=== PATIENT | female | born 1970 | race Caucasian/White ===

== ENCOUNTER 2016-12-26 17:22 | Emergency (ER) | payer BC, OTHER ==
[~2016-12-26] VITALS: Ht 165.1 cm; Wt 69.7 kg
[~2016-12-26 17:22] MED LIST: ALBU1AER9 INH; ATV/1 PO; CYAN3INJ IM; CYCL5TAB PO; ELET40TA PO; ERGO500037 PO; FEXO1TAB46 PO; FURO-85 PO; PANT40TA PO; POTA10TA32 PO; PROM25TA16 PO; TEMA30CA4 PO; TRAM-453 PO; ZOLE5INJ IV; ZOLP12.5 PO; [UNRECOGNIZED DRUG - CODE] PO; [UNRECOGNIZED DRUG - SUPPLY] IVF
[2016-12-26 17:25] VITALS: TEMP 36.9; O2SAT 98; Ht 165.1 cm; Wt 69.7 kg
[2016-12-26] MEDS ORDERED: ALBU18002 INH (17:43)
[2016-12-26] MEDS ORDERED: CYNI1000 IM (17:43)
[2016-12-26] MEDS ORDERED: SODIUM CHLORIDE 0.9% 1000ML 1,000 ML IV STA (18:19)
--- NOTE | 2016-12-26 19:34 | DIAGNOSTIC IMAGING REPORT ---
HEAD WITHOUT CONTRAST (CT) CLINICAL HISTORY: 46 years-old Female presenting with Evaluate Fever/Sepsis. TECHNIQUE: Multidetector CT imaging of the head was performed without the use of intravenous contrast. IV contrast: None. A dose lowering technique was used consistent with the principles of ALARA (as low as reasonably achievable). COMPARISON: 04/25/2013. CT DOSE (mGy.cm): The estimated cumulative dose is 601.98 mGy.cm. 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 Ventricles and sulci normal in size. Brain parenchyma normal in appearance with preserved ocampo-white differentiation. No mass effect or midline shift. No hemorrhage or acute territorial infarct. No extra-axial fluid collection. Minimal mucosal thickening in the right maxillary sinus. Calvarium intact. IMPRESSION: 1. No acute intracranial pathology. Electronically signed by: Abdiaziz Calhoun M.D. 12/26/2016 7:33 PM Dictated Date/Time: 12/26/2016 7:31 PM
--- NOTE | 2016-12-26 19:36 | DIAGNOSTIC IMAGING REPORT ---
CHEST ONE VIEW PORTABLE CLINICAL HISTORY: 46 years-old Female presenting with Evaluate Fever/Sepsis. TECHNIQUE: Portable upright AP view of the chest was obtained. COMPARISON: 01/29/2012. FINDINGS: Right internal jugular Mediport remains in place terminating in the SVC. Surgical clips project over the lower mediastinum. Cardiomediastinal silhouette normal. Lungs and pleural spaces clear. Osseous structures normal. Upper abdomen normal. IMPRESSION: 1. No acute cardiopulmonary disease. Electronically signed by: Abdiaziz Calhoun M.D. 12/26/2016 7:35 PM Dictated Date/Time: 12/26/2016 7:33 PM
[2016-12-26] MEDS ORDERED: ONDANSETRON INJ 2 MG/ML 2 ML VIAL IV STA (20:28)
[2016-12-26] MEDS ORDERED: ONDANSETRON INJ 2 MG/ML 2 ML VIAL ONE (20:29)
[2016-12-26 20:30] LABS: BASO % 0.3 %; BASO ABS # 0.04 K/uL (0-0.2); COMPLETE YES; EOS % 0.1 %; HEMATOCRIT 34.9 % (37-47); IG% 0.4 %; LYMPH ABS # 1.18 K/uL (1.2-3.4); MEAN CELL VOLUME 90.4 fL (80-100); MEAN CORPUSCULAR HEMOGLOBIN 30.6 pg (25-34); MEAN CORPUSCULAR HGB CONC 33.8 g/dl (32-36); MEAN PLATELET VOLUME 10.4 fL (7.4-10.4); MONO % 6.5 %; NEUT % 82.7 %; PLATELET COUNT 329 K/uL (130-400); RED BLOOD COUNT 3.86 M/uL (4.2-5.4); WHITE BLOOD COUNT 11.76 K/uL (4.8-10.8)
[2016-12-26 20:37] LABS: PARTIAL THROMBOPLASTIN RATIO 1.3; PROTHROMBIN TIME (PATIENT) 10.6 SECONDS (9.0-12.0)
[2016-12-26 20:46] LABS: PREG INTERNAL NEGATIVE QC NEG CLEAR BACKGROUND; PREG INTERNAL POSITIVE QC POS CONTROL LINE
[2016-12-26 20:47] LABS: BLOOD UREA NITROGEN 9 mg/dl (7-18); BUN/CREATININE RATIO 11.8 (10-20); CALCIUM 8.8 mg/dl (8.5-10.1); CARBON DIOXIDE 26 mmol/L (21-32); CHLORIDE 102 mmol/L (98-107); CREATININE 0.76 mg/dl (0.60-1.20); GLUCOSE 90 mg/dl (70-99); POTASSIUM 3.4 mmol/L (3.5-5.1); SODIUM 137 mmol/L (136-145)
[2016-12-26 20:58] LABS: ALKALINE PHOSPHATASE 87 U/L (45-117); ALT/SGPT 19 U/L (12-78); AST/SGOT 19 U/L (15-37); CKMB/CK RATIO 1.7 (0-3.0); THYROID STIMULATING HORMONE 0.952 uIu/ml (0.300-4.500)
[2016-12-26 21:04] LABS: URINE APPEARANCE TURBID (CLEAR); URINE BILIRUBIN NEG (NEG); URINE COLOR DK YELLOW; URINE EPITHELIAL CELL AUTO >30 /lpf (0-5); URINE NITRITE POS (NEG); URINE PH 6.5 (4.5-7.5); URINE SPECIFIC GRAVITY 1.022 (1.000-1.030); UROBILINOGEN POS (NEG); ZZUR CULT IF INDIC CLEAN CATCH YES
[2016-12-26 21:09] LABS: MANUAL MICROSCOPIC REQUIRED? NO; REVIEW REQ? YES
[2016-12-26 21:33] LABS: BENZODIAZEPINE, URINE NEG (NEG); COCAINE,URINE NEG (NEG); PHENCYCLIDINE, URINE NEG (NEG)
[2016-12-26] MEDS ORDERED: CEFTRIAXONE SOD INJ 1 GM ADDVIAL IV STA (22:12)
[2016-12-26] MEDS ORDERED: LEVOFLOXACIN 250 MG TAB PO STA (22:12)
[2016-12-26] MEDS ORDERED: LORAZEPAM 1 MG TAB SL STA (22:31)
[2016-12-26] MEDS ORDERED: LEVO-366 PO (22:41)
[2016-12-26] MEDS ORDERED: ONDA4TAB10 SL (22:41)
--- NOTE | 2016-12-26 22:41 | EMERGENCY ROOM VISIT NOTE ---
History Report prepared by [place]: Cony Kenney Under the Supervision of: Dr. Dirk Enriquez D.O. First contact with patient: 18:19 Chief Complaint: SEIZURE Stated Complaint: SEIZURE Nursing Triage Summary: Patient arrived to [facility] via ALS from the [facility]. Per EMS "The patient was visiting with some friends at their camper. At some point, she started 'zoning out' and one of her friends noticed a right sided facial droop. They sat her down and started talking to her. She started having a grand mal seizure that lasted about 1 minute. She did not have any incontinence. She did not bite her tongue. She was postictal for about 15 minutes after the seizure." Patient has no history of seizure. PMH: Anxiety, Hypoparathyroidism, blindness, Von Willebrand disease. Patient has a history of metaport implantations; two of which became infected and were removed. Patient reports that since the seizure she is unable to feel four of her toes on the left foot. 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 The patient presents to the ED by EMS from [facility]. The patient was sitting and eating with family when she started slurring her speech. She started grabbing at her right leg with her arm. She would not respond to her family. They took her to the first aid tent where they noticed right facial droop and right upper extremity weakness. They also noted that the patient seemed to be having a grand mal seizure. The patient has no memory of this episode. According to family, the patient appears normal now. She denies any history of seizure. She had a similar episode several years ago where she suddenly became unresponsive and was grabbing at her leg. The episode today seemed to go further and included more symptoms than her previous episode. She notes that she has felt hot all day. She admits to being noncompliant with her medications at times. She notes that she has a blood disorder that causes her to bruise easily. 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 Review of Systems See HPI for pertinent positives & negatives. A total of 10 systems reviewed and were otherwise negative. Past Medical & Surgical Medical Problems: (1) Anxiety (2) Blindness (3) Depression (4) Gastroparesis (5) Hypoparathyroidism (6) mediport (7) Peptic ulcer disease (8) Von Willebrand disease Family History No pertinent family history stated. Social History Smoking Status: Never Smoker Alcohol Use: none Drug Use: none Marital Status: single Housing Status: lives alone Occupation Status: employed Current/Historical Medications Scheduled Calcium Carbonate-Vitamin D (Liquid Calcium/Vitamin D), 2 CAPSULES PO BID Cyanocobalamin (Cyanocobalamin), 1 ML IM MONTHLY Fexofenadine Hcl (Maame), 180 MG PO BID Levofloxacin (Levaquin), 500 MG PO DAILY Lorazepam (Ativan), 1 MG PO ACHS Ondasetron Odt (Zofran Odt), 4 MG SL Q6H Pantoprazole Sodium (Protonix), 40 MG PO BID Promethazine HCl (Promethazine HCl), 25 MG PO AC Zoledronic Acid (Reclast), 5 MG IV YEARLY [Mediport Flush], IVF MONTHLY Scheduled PRN Albuterol Sulfate (Proair Respiclick), 2 PUFFS INH QID PRN for Shortness of Breath Cyclobenzaprine Hcl (Flexeril), 5 MG PO TID PRN for Muscle spasm Eletriptan Hydrobromide (Relpax), 40 MG PO UD PRN for Headache Furosemide (Lasix), 20 MG PO QAM PRN for Swelling Potassium Chloride Microencaps (Potassium Chloride Er), 10 MEQ PO DAILY PRN for With lasix Temazepam (Restoril), 30 MG PO HS PRN for Sleep Tramadol Hcl (Ultram), 25 MG PO Q4H PRN for Pain Zolpidem Tartrate (Ambien Cr), 12.5 MG PO UD PRN for Sleep Allergies Coded Allergies: Latex1 -Allergic Contact Dermititis (Verified Allergy, Severe, RASH, ) APPEARS LIKE A CHEMICAL BURN PER PATIENT Tobramycin (Verified Allergy, Severe, BLINDNESS, 03/06/15) CAUSED DETERIORATION IN NERVES AND MUSCLES BEHIND PATIENT'S EYES Penicillins (Verified Allergy, Intermediate, RASH, 03/06/15) PT CAN TOLERATE ROCEPHINE AND CEPHLASPORINS PER DR CIFUENTES Quinolones (Verified Allergy, Intermediate, RASH, 03/06/15) APPEARS LIKE A CHEMICAL BURN PER PATIENT Sulfa Drugs (Verified Allergy, Intermediate, HIVES, 03/06/15) W/ NAUSEA, VOMITING Aminoglycosides (Verified Allergy, Unknown, UNKNOWN, 03/06/15) Ferric Oxide (Verified Adverse Reaction, Intermediate, HIVES, 03/06/15) ABLE TO TOLERATE W/ PRETREATS PER PATIENT Iron Dextran (Verified Adverse Reaction, Intermediate, SHORT OF BREATH W/ HEART RACING, 03/06/15) PT CAN TOLERATE IF PRETREATED Lactose (Verified Adverse Reaction, Intermediate, NAUSEA, GI UPSET, ) Uncoded Allergies: CONTRASTMEDIA (Allergy, Mild, FACIAL SWELLING WITH IV CONTRAST, 06/09/09) Physical Exam Vital Signs Date Time Temp Pulse Resp B/P (MAP) Pulse Ox O2 Delivery O2 Flow Rate FiO2 12/26/16 23:00 120 16 158/96 99 12/26/16 22:26 121 16 145/87 99 Room Air 12/26/16 21:45 126 16 145/87 99 Room Air 12/26/16 21:29 129 12/26/16 19:54 134 16 139/87 100 Room Air 12/26/16 17:39 136 12/26/16 17:25 36.9 138 20 138/92 98 Room Air 12/26/16 17:25 98 Room Air Physical Exam CONSTITUTIONAL/VITAL SIGNS: Reviewed / noted above. GENERAL: Non-toxic in appearance. INTEGUMENTARY: Warm, dry, and [place]. HEAD: Normocephalic. EYES: without scleral icterus or trauma. ENT/OROPHARYNX: clear and moist. LYMPHADENOPATHY/NECK: Is supple without lymphadenopathy or meningismus. RESPIRATORY: Lungs clear and equal. CARDIOVASCULAR: Tachycardic rate and rhythm. GI/ABDOMEN: Soft and nontender. No organomegaly or pulsatile mass. No rebound or guarding. Normal bowel sounds. EXTREMITIES: Multiple ecchymotic areas on both extremities, patient reports bruises easily due to blood disorder. BACK: No CVA tenderness. NEUROLOGICAL: Intact without focal deficits. PSYCHIATRIC: normal affect. MUSCULOSKELETAL: Normally developed with good muscle tone. Medical Decision & Procedures ER Provider Diagnostic Interpretation: X ray results and stated below per my interpretation and radiology interpretation. Radiology results as stated below per my review and radiologist interpretation: CHEST ONE VIEW PORTABLE CLINICAL HISTORY: 46 years-old Female presenting with Evaluate Fever/Sepsis. TECHNIQUE: Portable upright AP view of the chest was obtained. COMPARISON: 01/29/2012. FINDINGS: Right internal jugular Mediport remains in place terminating in the SVC. Surgical clips project over the lower mediastinum. Cardiomediastinal silhouette normal. Lungs and pleural spaces clear. Osseous structures normal. Upper abdomen normal. IMPRESSION: 1. No acute cardiopulmonary disease. Electronically signed by: Abdiaziz Calhoun M.D. 12/26/2016 7:35 PM Dictated Date/Time: 12/26/2016 7:33 PM HEAD WITHOUT CONTRAST (CT) CLINICAL HISTORY: 46 years-old Female presenting with Evaluate Fever/Sepsis. TECHNIQUE: Multidetector CT imaging of the head was performed without the use of intravenous contrast. IV contrast: None. A dose lowering technique was used consistent with the principles of ALARA (as low as reasonably achievable). COMPARISON: 04/25/2013. CT DOSE (mGy.cm): The estimated cumulative dose is 601.98 mGy.cm. 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 Ventricles and sulci normal in size. Brain parenchyma normal in appearance with preserved ocampo-white differentiation. No mass effect or midline shift. No hemorrhage or acute territorial infarct. No extra-axial fluid collection. Minimal mucosal thickening in the right maxillary sinus. Calvarium intact. IMPRESSION: 1. No acute intracranial pathology. Electronically signed by: Abdiaziz Calhoun M.D. 12/26/2016 7:33 PM Dictated Date/Time: 12/26/2016 7:31 PM Laboratory Results 12/26/16 20:00 Red Blood Count 3.86, Mean Corpuscular Volume 90.4, Mean Corpuscular Hemoglobin 30.6, Mean Corpuscular Hemoglobin Concent 33.8, Mean Platelet Volume 10.4, Neutrophils (%) (Auto) 82.7, Lymphocytes (%) (Auto) 10.0, Monocytes (%) (Auto) 6.5, Eosinophils (%) (Auto) 0.1, Basophils (%) (Auto) 0.3, Neutrophils # (Auto) 9.72, Lymphocytes # (Auto) 1.18, Monocytes # (Auto) 0.76, Eosinophils # (Auto) 0.01, Basophils # (Auto) 0.04 12/26/16 20:00 Test 12/26/16 20:00 12/26/16 20:36 12/26/16 20:45 White Blood Count 11.76 K/uL (4.8-10.8) Red Blood Count 3.86 M/uL (4.2-5.4) Hemoglobin 11.8 g/dL (12.0-16.0) Hematocrit 34.9 % (37-47) Mean Corpuscular Volume 90.4 fL (80-100) Mean Corpuscular Hemoglobin 30.6 pg (25-34) Mean Corpuscular Hemoglobin Concent 33.8 g/dl (32-36) Platelet Count 329 K/uL (130-400) Mean Platelet Volume 10.4 fL (7.4-10.4) Neutrophils (%) (Auto) 82.7 % Lymphocytes (%) (Auto) 10.0 % Monocytes (%) (Auto) 6.5 % Eosinophils (%) (Auto) 0.1 % Basophils (%) (Auto) 0.3 % Neutrophils # (Auto) 9.72 K/uL (1.4-6.5) Lymphocytes # (Auto) 1.18 K/uL (1.2-3.4) Monocytes # (Auto) 0.76 K/uL (0.11-0.59) Eosinophils # (Auto) 0.01 K/uL (0-0.5) Basophils # (Auto) 0.04 K/uL (0-0.2) RDW Standard Deviation 56.7 fL (36.4-46.3) RDW Coefficient of Variation 17.3 % (11.5-14.5) Immature Granulocyte % (Auto) 0.4 % Immature Granulocyte # (Auto) 0.05 K/uL (0.00-0.02) Prothrombin Time 10.6 SECONDS (9.0-12.0) Prothromb Time International Ratio 1.0 (0.9-1.1) Activated Partial Thromboplast Time 32.9 SECONDS (21.0-31.0) Partial Thromboplastin Ratio 1.3 D-Dimer 400 ug/L FEU (0-500) Anion Gap 9.0 mmol/L (3-11) Est Creatinine Clear Calc Drug Dose 89.7 ml/min Estimated GFR () 108.3 Estimated GFR (Non- 93.4 BUN/Creatinine Ratio 11.8 (10-20) Calcium Level 8.8 mg/dl (8.5-10.1) Total Bilirubin 0.5 mg/dl (0.2-1) Direct Bilirubin 0.2 mg/dl (0-0.2) Aspartate Amino Transf (AST/SGOT) 19 U/L (15-37) Alanine Aminotransferase (ALT/SGPT) 19 U/L (12-78) Alkaline Phosphatase 87 U/L (45-117) Total Creatine Kinase 93 U/L (26-192) Creatine Kinase MB 1.6 ng/ml (0.5-3.6) Creatine Kinase MB Ratio 1.7 (0-3.0) Troponin I < 0.015 ng/ml (0-0.045) Total Protein 6.8 gm/dl (6.4-8.2) Albumin 3.7 gm/dl (3.4-5.0) Lipase 63 U/L (73-393) Thyroid Stimulating Hormone (TSH) 0.952 uIu/ml (0.300-4.500) Human Chorionic Gonadotropin, Qual NEG (NEG) Ethyl Alcohol mg/dL < 3.0 mg/dl (0-3) Urine Color DK YELLOW Urine Appearance TURBID (CLEAR) Urine pH 6.5 (4.5-7.5) Urine Specific [place] 1.022 (1.000-1.030) Urine Protein 1+ (NEG) Urine Glucose (UA) NEG (NEG) Urine Ketones 1+ (NEG) Urine Occult Blood NEG (NEG) Urine Nitrite POS (NEG) Urine Bilirubin NEG (NEG) Urine Urobilinogen POS (NEG) Urine Leukocyte Esterase SMALL (NEG) Urine WBC (Auto) >30 /hpf (0-5) Urine RBC (Auto) 5-10 /hpf (0-4) Urine Hyaline Casts (Auto) 5-10 /lpf (0-5) Urine Epithelial Cells (Auto) >30 /lpf (0-5) Urine Bacteria (Auto) 4+ (NEG) Urine Pathogenic Casts /lpf (0) Urine Opiates Screen NEG (NEG) Urine Methadone, Qualitative NEG (NEG) Urine Barbiturates NEG (NEG) Urine Phencyclidine (PCP) Level NEG (NEG) Ur Amphetamine/Methamphetamine NEG (NEG) MDMA (Ecstasy) Screen NEG (NEG) Urine Benzodiazepines Screen NEG (NEG) Urine Cocaine Metabolite NEG (NEG) Urine Marijuana (THC) NEG (NEG) Laboratory results as stated above per my review. Medications Administered Medications (Trade) Dose Ordered Sig/Joanna Route Start Time Stop Time Status Last Admin Dose Admin Sodium Chloride 1,000 ml @ 999 mls/hr Q1H1M STAT IV 12/26/16 18:19 12/26/16 19:19 DC 12/26/16 20:33 999 MLS/HR Ondansetron HCl (Zofran Inj) 4 mg NOW STAT IV 12/26/16 20:28 12/26/16 20:29 DC 12/26/16 20:33 4 MG Ceftriaxone Sodium (Rocephin Inj) 1 gm NOW STAT IV 12/26/16 22:12 12/26/16 22:14 DC 12/26/16 22:26 1 GM Levofloxacin (Levaquin Tab) 500 mg NOW STAT PO 12/26/16 22:12 12/26/16 22:14 DC 12/26/16 22:53 500 MG Lorazepam (Ativan Tab) 1 mg NOW STAT SL 12/26/16 22:31 12/26/16 22:32 DC 12/26/16 22:53 1 MG Heparin Sodium (Porcine) (Heparin 100 Unit/ml 5ml Flush) 5 ml STK-MED ONCE .ROUTE 12/26/16 23:00 12/26/16 23:01 DC 12/26/16 23:00 5 ML ECG Indication: tachycardia Rate (beats per minute): 128 Rhythm: sinus tachycardia Findings: no ectopy, other (no acute injury) ED Course 1818: NSS 1000 ml @ 999 mls/hr IV. 1822: Previous medical records were reviewed. The patient was evaluated in room C12A. A complete history and physical examination was performed. 2027: Zofran Inj 4 mg IV. 0: I reevaluated the patient. She is still tachycardic. I offered her observation overnight, but she declined. I discussed the results and treatment plan with her. She verbalized understanding and agreement. She will be discharged home after antibiotics. 2211: Levofloxacin 500 mg PO, Rocephin Inj 1 gm IV. 2230: Lorazepam 1 mg SL. Medical Decision Differential diagnosis: Etiologies such as infection, hypoglycemia, electrolyte abnormalities, cardiac sources, intracerebral event, trauma, toxicologic, neurologic, as well as others were entertained. This is a 46-year-old female who presents to the ED with a chief complaint of seizure-like activity. The patient was with family and suddenly seemed to slur her words and was shaking and possibly has some seizure-like activity for about a minute. The patient was then brought here by EMS. The patient denies any specific complaints at this time. She is tachycardic on exam. She did not have incontinence or bite her tongue. She denies any trauma or symptoms at this time. The patient had a similar episode to this in 2012 and at that time her symptoms were unexplained. At the time she was also somewhat tachycardic but not as tachycardic as today. Her 12-lead EKG today reveals a sinus tach at a rate of 128. CT scan of the brain and chest x-ray were negative for acute disease. Blood work was unremarkable. Tox screen was negative. D-dimer was negative. Troponin was negative. The patient's urine suggests an infection. She was treated with IV Rocephin and by mouth Levaquin. She reports that she has had Levaquin in the past. The patient seems to be persistently tachycardic. I did discuss this with her. This is somewhat concerning although the patient is stating that she is asymptomatic. She does report some anxiety and was given some by mouth Ativan for this. He was also given some IV fluids. She was given Zofran for some nausea. I did discuss her persistent tachycardia with her and recommended observation. She declined this and states that she wants to go home. She feels that her tachycardia is related to anxiety. The patient is discharged per her wishes and will be discharged on Zofran and Levaquin. Medication Reconcilliation Current Medication List: was personally reviewed by me Blood Pressure Screening Patient's blood pressure: Normal blood pressure Blood pressure disposition: Did not require urgent referral Impression Primary Impression: UTI (urinary tract infection) Additional Impressions: Anxiety Seizure-like activity Scribe Attestation The scribe's documentation has been prepared under my direction and personally reviewed by me in its entirety. I confirm that the note above accurately reflects all work, treatment, procedures, and medical decision making performed by me. Departure Information Dispostion Home / Self-Care Prescriptions Ondasetron Odt (ZOFRAN ODT) 4 Mg Tab 4 MG SL Q6H for Nausea, #6 TAB Prov: Dirk Enriquez D.O. 12/26/16 Levofloxacin (Levaquin) 500 Mg Tab 500 MG PO DAILY for 7 Days, #7 TAB Prov: Dirk Enriquez D.O. 12/26/16 Referrals Landry Gonzales M.D. (PCP) Patient Instructions [facility] Additional Instructions Levaquin as prescribed for urinary tract infection. Zofran: Allow one tablet to dissolve under the tongue every 6 hours as needed for nausea or vomiting. Follow-up with your doctor for further care and evaluation in 1-2 days. Return to the emergency department for worsening or new symptoms or any concerns. You have been examined and treated today on an emergency basis only. This is not a substitute for, or an effort to provide, complete comprehensive medical care. It is impossible to recognize and treat all injuries or illnesses in a single emergency department visit. It is therefore important that you follow up closely with your doctor. Call as soon as possible for an appointment. Problem Qualifiers
[2016-12-26 23:00] VITALS: BP 158/96; PULSE 120; O2SAT 99
== END 2016-12-26 23:00 | disposition home or self-care (01) ==
LOC: EDBD 17:22 → C.EDC 17:23
DX: N39.0 Urinary tract infection, site not specified (principal); F41.9 Anxiety disorder, unspecified; R56.9 Unspecified convulsions; E20.9 Hypoparathyroidism, unspecified; H54.0 Blindness, both eyes; D68.0 Von Willebrand disease; F32.9 Major depressive disorder, single episode, unspecified; K31.84 Gastroparesis; K27.9 Peptic ulcer, site unspecified, unspecified as acute or chronic, without hemorrhage or perforation; Z79.899 Other long term (current) drug therapy

== ENCOUNTER 2018-07-07 14:02 | Inpatient (IN) ==
[2018-07-07] MEDS ORDERED: PROMETHAZINE HCL 6.25 MG in SODIUM CHLORIDE 0.9% 50 ML IV STA (14:41)
[2018-07-07] MEDS ORDERED: ACETAMINOPHEN 1,000 MG/100 ML VIAL IV STA (14:41)
[2018-07-07] MEDS ORDERED: KETOROLAC TROMETHAMINE 15 MG/ML VIAL IV STA (14:41)
[2018-07-07] MEDS ORDERED: SODIUM CHLORIDE 0.9% 1000ML 2,000 ML IV ONE (14:41)
[2018-07-07] MEDS ORDERED: ONDANSETRON INJ 2 MG/ML 2 ML VIAL IV STA (14:41)
[2018-07-07] MEDS ORDERED: CEFEPIME 2,000 MG in SYRINGE 7.5 ML IV STA (14:41)
[2018-07-07 14:56] LABS: Hemoglobin 12.6 g/dL (12.0-16.0); Immature Granulocytes # (auto) 0.04 K/uL (0.00-0.02); Immature Granulocytes % (auto) 0.3 %; Lymphocytes # (auto) 0.92 K/uL (1.2-3.4); Lymphocytes % (auto) 6.8 %; Mean Corpuscular Hgb Conc 33.2 g/dL (32-36); Mean Corpuscular Volume 95.2 fL (80-100); Mean Platelet Volume 11.3 fL (7.4-10.4); Monocytes # (auto) 0.46 K/uL (0.11-0.59); Monocytes % (auto) 3.4 %; Neutrophils # (auto) 12.12 K/uL (1.4-6.5); Neutrophils % (auto) 89.5 %; Platelet Count 273 K/uL (130-400); RDW Coefficient of Variation 19.8 % (11.5-14.5); RDW Standard Deviation 68.2 fL (36.4-46.3); Red Blood Count 3.99 M/uL (4.2-5.4); White Blood Count 13.54 K/uL (4.8-10.8)
--- NOTE | 2018-07-07 15:00 | XRay Report ---
XR chest 1V portable HISTORY: Sepsis COMPARISON: Chest 01/26/2018. FINDINGS: No pleural effusions. No pneumothorax. The lungs are clear. The heart is normal in size. Ol d, healed left-sided rib fractures. Right jugular Port-A-Cath terminates at the SVC. Prior cholecyste ctomy. IMPRESSION: No acute process. Electronically signed by: Hadley Soni M.D. 07/07/2018 2:59 PM
[2018-07-07 15:04] LABS: Alanine Aminotransferase 21 U/L (12-78); Albumin Level 3.9 gm/dl (3.4-5.0); Aspartate Aminotransferase 38 U/L (15-37); BUN Creatinine Ratio 10.1 (10-20); Blood Urea Nitrogen 10 mg/dl (7-18); Calcium 9.1 mg/dl (8.5-10.1); Carbon Dioxide 21 mmol/L (21-32); Chloride 100 mmol/L (98-107); Est GFR (Non-African American) 69.1; Glucose 190 mg/dl (70-99); Magnesium 2.5 mg/dl (1.8-2.4); Potassium 3.9 mmol/L (3.5-5.1); Sodium 135 mmol/L (136-145)
[2018-07-07 15:06] LABS: Partial Thromboplastin Ratio 1.1; Partial Thromboplastin Time 30.1 Seconds (21.0-31.0); Prothrombin Time 10.4 Seconds (9.0-12.0)
[2018-07-07 15:07] LABS: Alkaline Phosphatase 84 U/L (45-117); Bilirubin,Total 0.5 mg/dl (0.2-1); Globulin 3.9 gm/dl (2.5-4.0); Total Protein 7.8 gm/dl (6.4-8.2)
[2018-07-07 16:08] LABS: Influenza A virus by PCR Neg for Influ A (Neg); Influenza B virus by PCR Neg for Influ B (Neg)
[2018-07-07] MEDS ORDERED: HYDROCORTISONE SOD SUCCINATE 100 MG/2 ML VIAL IV STA (16:17)
[2018-07-07] MEDS ORDERED: LORazepam 1 MG/2 ML VIAL IV STA (16:17)
[2018-07-07] MEDS ORDERED: LORazepam 2 MG/4 ML VIAL IV STA (17:01)
--- NOTE | 2018-07-07 17:16 | History & Physical Report ---
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 -In the setting of alcohol withdrawal, possible sepsis and possible post-ictal state -Patient has become progressively delirious since arrival, difficult to obtain history -H/o alcohol use, current etoh level <3, utox pending, CK pending (2) Sepsis: Fever of 38.1, HR of 26, leukocytosis of 13.54, lactate of 3.6 -Undetermined source: CXR without evidence of infiltrate, Flu PCR negative, urine pending -Lumbar puncture attempted by radiology but unsuccessful sample -Obtain blood and urine cultures, empirically started on cefepime, IV fluid resuscitation -Repeat lactate ordered (3) Seizure disorder: History of seizure disorder. Has not taken Keppra in at least 2 days -Possible post-ictal state with delirium -Given IV Keppra 1,500. Will continue dosing at IV Keppra 1,500mg Q12H -Seizure precautions -Routine neurology consult (4) Alcohol use: Unsure of last drink but serum alcohol level <3. BP and HR elevated upon arrival, so concern for withdrawal -Previously documented alcohol abuse. Family unsure of recent drinking habits -Alcohol withdrawal protocol ordered including gabapentin and IV ativan PRN -Banana bag, Thiamine PO daily (5) Vomiting and diarrhea: (6) Abdominal pain: Persistent symptoms for 3 days, diffuse abdominal pain -Lipase wnl, abdominal CT pending -Anti-emetics, IV fluids -Stool culture pending (7) Anxiety: Receiving IV ativan per withdrawl protocol (8) Peptic ulcer disease: (9) History of gastrectomy: H/o total gastrectomy in 2003 due to peptic ulcer disease -Continue PPI (10) DVT prophylaxis: SCDs with plan to start SQ Lovenox tomorrow Code status: FULL PCP: Kathia Dispo: Admitted to telemetry. Discharge planning ordered. Need to discuss better medication management due to patient living alone/ blindness. Patient seen in collaboration with Dr. Sims. Please see addendum. 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 History is limited due to delirious state. Patient lives alone. Is partially blind but manages own medications with brightly colored labels that help her identify meds. Was last known to be well on Friday when daughter spoke to patient on the phone. Reportedly developed nausea, vomiting, diarrhea and aching all over on Friday evening. Has not been able to keep medication down for the past two days due to frequent bouts of emesis. Denies any sick contacts or eating unusual foods. Feels confused currently, which is how she feels after seizures. Does not remember any falls or seizures at home. Has been drinking alcohol at home but cannot quanify amount or determine when last drink was--"I thought I was drinking water at home but it tasted bitter so it may have been alcohol". Called EMS earlier today and daughter met her in ED. Per daughter, patient is much more confused than baseline, which is how she acts after seizures. Endorses aching all over body, primarily in neck and along spine. Has a headache and is sensitive to light. Endorsing diffuse abdominal pain. Difficult to obtain remainder of ROS due to confused state. Allergies Allergy/AdvReac Type Severity Reaction Status Date / Time latex Allergy Severe RASH Verified 07/07/18 16:38 tobramycin Allergy Severe BLINDNESS Verified 07/07/18 16:38 Penicillins Allergy Intermediate RASH Verified 07/07/18 16:38 Quinolones Allergy Intermediate RASH Verified 07/07/18 16:38 Sulfa (Sulfonamide Allergy Intermediate HIVES Verified 07/07/18 16:38 Antibiotics) Aminoglycosides Allergy Unknown UNKNOWN Verified 07/07/18 16:38 ciprofloxacin Allergy INSIDE OF Verified 07/07/18 16:48 LIPS BURN & PEEL doxycycline Allergy Hives, Verified 07/07/18 16:49 VOMITING iron dextran complex AdvReac Intermediate SHORT OF Verified 07/07/18 16:38 BREATH W/ HEART RACING lactose AdvReac Intermediate NAUSEA, GI Verified 07/07/18 16:38 UPSET citalopram AdvReac RESTLESS Verified 07/07/18 16:48 CONTRASTMEDIA Allergy Mild FACIAL Uncoded 07/07/18 16:38 SWELLING WITH IV CONTRAST Ferric Oxide AdvReac Intermediate HIVES Uncoded 07/07/18 16:38 Home Medications Home Medications Medication Instructions Recorded Confirmed Type albuterol sulfate 2 puff INHALATION QID 01/29/18 07/07/18 History cyclobenzaprine 5 mg PO TID PRN 01/29/18 07/07/18 History fexofenadine 180 mg PO DAILY 01/29/18 07/07/18 History furosemide 40 mg PO DAILY 01/29/18 07/07/18 History gabapentin 400 mg PO TID 01/29/18 07/07/18 History montelukast 10 mg PO DAILY 01/29/18 07/07/18 History pantoprazole 40 mg PO BID 01/29/18 07/07/18 History potassium chloride 20 meq PO DAILY 01/29/18 07/07/18 History promethazine 25 mg PO Q8 PRN 01/29/18 07/07/18 History temazepam 30 mg PO HS PRN 01/29/18 07/07/18 History eletriptan [Relpax] 40 mg PO UD PRN 07/07/18 07/07/18 History levetiracetam [Keppra] 1,500 mg PO Q12 07/07/18 07/07/18 History lorazepam 1 mg PO Q6H PRN 07/07/18 07/07/18 History trazodone 50 mg PO HS 07/07/18 07/07/18 History zoledronic [id number]-[id number] 5 mg IV YEARLY 07/07/18 07/07/18 History [Reclast] Past Med/Surg History Medical History DVT prophylaxis (Chronic) Anxiety (Chronic) Depression (Chronic) Peptic ulcer disease (Resolved) Von Willebrand disease (Chronic) Hypoparathyroidism (Chronic) Gastroparesis (Chronic) Blindness (Chronic) Surgical History History of gastrectomy (Chronic) History of cholecystectomy (Resolved) Family History Father Diabetes Mother Von Willebrand disease Social History Preferred Language: Congolese Communication Ability: Effective Flight Control Tower Operator Required: No Beliefs That Will Affect Care: None marital status: Current Living Situation: Alone current occupational status: disabled Other Information That Helps Us Care for You: No Feels Safe at Home: Yes and Hesitant to Answer Safety Concerns: Feels Safe At This Time Smoking Status: Never smoker Hx Alcohol Use: Yes Hx Substance Use: No Review of Systems Limited due to cognitive status Physical Exam Vital Signs (Past 24 Hours): Last Vital Signs Temp 38.1 C H 07/07/18 14:12 Pulse 138 H 07/07/18 15:31 Resp 19 07/07/18 15:31 BP 143/91 H 07/07/18 15:30 Pulse Ox 100 07/07/18 15:44 Physical Exam: General Appearance: WD/WN, acute distress, + anxious, crying Head: normocephalic, atraumatic Eyes: normal inspection, PERRL, EOMI, + photophobic ENT: hearing grossly normal, pharynx normal (dry mucous membranes) Neck: supple, TTP along spinal processes, limited ROM to R side 2/2 pain, no JVD, no adenopathy Respiratory/Chest: lungs clear to auscultation. No wheezes, rales or rhonci. No respiratory distress or accessory muscle use Cardiovascular: tachycardic, regular rhythm, no murmur, normal peripheral pulses Abdomen/GI: normal bowel sounds, soft, diffuse tenderness to palpation Extremities/Musculoskelatal: normal inspection, no calf tenderness, normal ca pillary refill, no pedal edema Neurologic/Psych: alert, anxious, tangential speech,easily distracted. Oriented x 3 (not to time), CN II-XII grossly intact. 5/5 strength in all extremities Skin: normal color, warm/dry. Small ecchymoses on bilateral arms and legs Results & Data Laboratory Results Short CBC 07/07/18 Range/Units 14:20 WBC 13.54 H (4.8-10.8) K/uL Hgb 12.6 (12.0-16.0) g/dL Hct 38.0 (37-47) % Plt Count 273 (130-400) K/uL BMP 07/07/18 14:20 Sodium 135 L Potassium 3.9 Chloride 100 Carbon Dioxide 21 BUN 10 Creatinine 0.97 Glucose 190 H Calcium 9.1 Liver Function 07/07/18 Range/Units 14:20 Total Bilirubin 0.5 (0.2-1) mg/dl AST 38 H (15-37) U/L ALT 21 (12-78) U/L Alkaline Phosphatase 84 (45-117) U/L Albumin 3.9 (3.4-5.0) gm/dl Diagnostic Findings CXR: IMPRESSION: No acute process. Supervising Physician Co-Signing Physician Notes I have seen and examined the patient and have discussed the case with the provider above. I agree with the assessment and plan as stated. This is a 47 yo F with a h/o ETOH use and seizures who presents with acute encephalopathy. Multiple etiologies exist including but not limited to alcohol withdrawal, sepsis 2/2 infected state, post-ictal state. She is more hypertensive, making alcohol withdrawal more likley. LP could not be obtained but she did present with fever, headache, neck stiffness and photophobia. Sinuses are TTP but oropharynx is clear. No respiratory symptoms and clear CXR. Recent reports of vomiting and diarrhea at [facility]. +Epigastric pain on exam, otherwise some bruising in serring of vWD but she is medically stable for dicsharge. (1) Sepsis Sepsis type: sepsis due to unspecified organism Qualified Code(s): A41.9 - Sepsis, unspecified organism
[2018-07-07] MEDS ORDERED: LACTATED RINGER'S 1,000 ML IV STA (18:33)
--- NOTE | 2018-07-07 19:15 | Fluoroscopy Report ---
FL lumbar puncture diagnostic CLINICAL HISTORY: 47 years-old Female presenting with headache, fever, vomiting. COMPARISON: None. PROCEDURE: The procedure, risks and benefits were discussed with the patient including the risk of spinal headac he, bleeding and infection. The patient agreed to the procedure and informed written consent was obta ined. The procedure was performed by Dr. Calhoun following a timeout. The L3-4 interlaminar space was targeted. Skin overlying the space was prepped and draped in the usua l aseptic fashion and local anesthesia was achieved with 1% lidocaine. Under intermittent fluoroscopi c guidance, a 20-gauge x 3 1/2 in. Sprotte needle was inserted into the thecal sac. A clear colorless cerebral spinal fluid was returned though due to presumed dehydration and a low-pre ssure state, fluid did not adequately return to be collected for sampling despite elevation of the he ad of the bed. Positioning within the cerebrospinal canal was confirmed. The patient tolerated the procedure well. There were no immediate complications. No specimens were se nt to the laboratory as none were collected. Fluoroscopy dosage (mGy): Not available. Fluoroscopy time: 7 seconds. Number or time of fluoroscopic spot images: 0. IMPRESSION: 1. Technically successful fluoroscopic guided lumbar puncture with an inability to collect cerebral spinal fluid due to low opening pressure, presumably related to dehydration. Electronically signed by: Abidaziz Calhoun M.D. 07/07/2018 7:12 PM
[2018-07-07] MEDS ORDERED: CONSULT PHARMACY STA (19:32)
[2018-07-07] MEDS ORDERED: PHARMACY CONSULT IN PROGRESS PRN (19:43)
[2018-07-07] MEDS ORDERED: PATIENT'S HEIGHT AND/OR WEIGHT NEEDED SCH (19:45)
--- NOTE | 2018-07-07 19:50 | Emergency Department Note ---
Entered by Grisel Haley acting as a scribe for History of Present Illness General Chief complaint: GI Assessment Time Seen by Provider: 07/07/18 14:34 Source: patient History of Present Illness Onset (ago): day(s) 3 Location: abdomen Pain Consistency: + other (persistent) Maximum Pain Intensity: 10 Quality: + other (vomiting) Associated symptoms: + denies other symptoms (urinary burning, urinary frequency), + nausea/vomiting and + other (diarrhea, body aches, urinary incontinence, sore throat) The patient is a 47 year old female who presents to the Emergency Room with complaints of persistent vomiting starting 3 days ago. The patient states that for the past 3 days she has had nausea, vomiting, and diarrhea. She states that she has body aches from vomiting so much. She reports that she cannot keep anything down and anytime she does, it comes right out as diarrhea. The patient complains of urinary incontinence and sore throat. She notes that she is unsure if she has had a fever as she hasn�t checked it. She notes that she has been around her grandkids that have been ill recently. The patient notes that she has been blind for a few years and has a history of a gastrectomy. The patient denies urinary burning, getting a flu shot this year, and seeing anyone for these symptoms. Home Medications Home Medications Medication Instructions Recorded Confirmed Type albuterol sulfate 2 puff INHALATION QID 01/29/18 07/07/18 History cyclobenzaprine 5 mg PO TID PRN 01/29/18 07/07/18 History fexofenadine 180 mg PO DAILY 01/29/18 07/07/18 History furosemide 40 mg PO DAILY 01/29/18 07/07/18 History gabapentin 400 mg PO TID 01/29/18 07/07/18 History montelukast 10 mg PO DAILY 01/29/18 07/07/18 History pantoprazole 40 mg PO BID 01/29/18 07/07/18 History potassium chloride 20 meq PO DAILY 01/29/18 07/07/18 History promethazine 25 mg PO Q8 PRN 01/29/18 07/07/18 History temazepam 30 mg PO HS PRN 01/29/18 07/07/18 History eletriptan [Relpax] 40 mg PO UD PRN 07/07/18 07/07/18 History levetiracetam [Keppra] 1,500 mg PO Q12 07/07/18 07/07/18 History lorazepam 1 mg PO Q6H PRN 07/07/18 07/07/18 History trazodone 50 mg PO HS 07/07/18 07/07/18 History zoledronic [id number]-[id number] 5 mg IV YEARLY 07/07/18 07/07/18 History [Reclast] Allergies Allergy/AdvReac Type Severity Reaction Status Date / Time latex Allergy Severe RASH Verified 07/07/18 16:38 tobramycin Allergy Severe BLINDNESS Verified 07/07/18 16:38 Penicillins Allergy Intermediate RASH Verified 07/07/18 16:38 Quinolones Allergy Intermediate RASH Verified 07/07/18 16:38 Sulfa (Sulfonamide Allergy Intermediate HIVES Verified 07/07/18 16:38 Antibiotics) Aminoglycosides Allergy Unknown UNKNOWN Verified 07/07/18 16:38 ciprofloxacin Allergy INSIDE OF Verified 07/07/18 16:48 LIPS BURN & PEEL doxycycline Allergy Hives, Verified 07/07/18 16:49 VOMITING iron dextran complex AdvReac Intermediate SHORT OF Verified 07/07/18 16:38 BREATH W/ HEART RACING lactose AdvReac Intermediate NAUSEA, GI Verified 07/07/18 16:38 UPSET citalopram AdvReac RESTLESS Verified 07/07/18 16:48 CONTRASTMEDIA Allergy Mild FACIAL Uncoded 07/07/18 16:38 SWELLING WITH IV CONTRAST Ferric Oxide AdvReac Intermediate HIVES Uncoded 07/07/18 16:38 Past Med/Surg History Medical History DVT prophylaxis (Chronic) Anxiety (Chronic) Depression (Chronic) Peptic ulcer disease (Resolved) Von Willebrand disease (Chronic) Hypoparathyroidism (Chronic) Gastroparesis (Chronic) Blindness (Chronic) Surgical History History of gastrectomy (Chronic) History of cholecystectomy (Resolved) Family History Father Diabetes Mother Von Willebrand disease Social History Preferred Language: [place] Communication Ability: Effective Bb Shot Packer Required: No Beliefs That Will Affect Care: None marital status: Current Living Situation: Alone current occupational status: disabled Other Information That Helps Us Care for You: No Feels Safe at Home: Yes and Hesitant to Answer Safety Concerns: Feels Safe At This Time Smoking Status: Never smoker Hx Alcohol Use: Yes Hx Substance Use: No Review of Systems See HPI for pertinent positives & negatives. and A total of 10 systems reviewed and were otherwise negative Physical Exam Vital Signs Vital Signs - 24 hr 07/07/18 14:12 07/07/18 14:19 07/07/18 14:32 Temperature 38.1 C H Temperature Source Oral Sepsis Recent Fever Within 48 Hours Yes Sepsis New/Unexplained Change in Mental Status No Sepsis Action Taken by Nursing MD Previously Notified Pulse Rate 139 H 136 H 144 H Pulse Rate [Apical] 144 H Pulse Rate from SpO2 Sensor 143 H Respiratory Rate 22 22 15 Respiratory Effort / Characteristics Spontaneous Spontaneous Blood Pressure 143/75 H 136/95 Blood Pressure [Right Arm] 136/95 Blood Pressure Mean 97 108 Blood Pressure Mean [Right Arm] 108 Blood Pressure Position [Right Arm] Sitting Pulse Oximetry 96 96 98 Oxygen Delivery Method Room Air Room Air Room Air 07/07/18 14:45 07/07/18 15:00 07/07/18 15:01 Temperature Temperature Source Sepsis Recent Fever Within 48 Hours Sepsis New/Unexplained Change in Mental Status Sepsis Action Taken by Nursing Pulse Rate 148 H 143 H 141 H Pulse Rate [Apical] 138 H Pulse Rate from SpO2 Sensor 146 H 143 H 142 H Respiratory Rate 16 15 21 Respiratory Effort / Characteristics Blood Pressure 149/88 H Blood Pressure [Right Arm] 149/88 H Blood Pressure Mean 108 Blood Pressure Mean [Right Arm] 108 Blood Pressure Position [Right Arm] Pulse Oximetry 99 100 99 Oxygen Delivery Method Room Air 07/07/18 15:15 07/07/18 15:17 07/07/18 15:30 Temperature Temperature Source Sepsis Recent Fever Within 48 Hours Sepsis New/Unexplained Change in Mental Status Sepsis Action Taken by Nursing Pulse Rate 140 H 139 H 137 H Pulse Rate [Apical] Pulse Rate from SpO2 Sensor 140 H 139 H 137 H Respiratory Rate 16 19 19 Respiratory Effort / Characteristics Blood Pressure 146/99 H 143/91 H Blood Pressure [Right Arm] Blood Pressure Mean 114 108 Blood Pressure Mean [Right Arm] Blood Pressure Position [Right Arm] Pulse Oximetry 96 96 99 Oxygen Delivery Method 07/07/18 15:31 07/07/18 15:44 07/07/18 15:45 Temperature Temperature Source Sepsis Recent Fever Within 48 Hours Sepsis New/Unexplained Change in Mental Status Sepsis Action Taken by Nursing Pulse Rate 138 H 133 H Pulse Rate [Apical] Pulse Rate from SpO2 Sensor 138 H 134 H Respiratory Rate 19 27 H Respiratory Effort / Characteristics Blood Pressure 135/86 Blood Pressure [Right Arm] Blood Pressure Mean 102 Blood Pressure Mean [Right Arm] Blood Pressure Position [Right Arm] Pulse Oximetry 98 100 100 Oxygen Delivery Method Room Air 07/07/18 15:46 07/07/18 16:00 07/07/18 16:01 Temperature Temperature Source Sepsis Recent Fever Within 48 Hours Sepsis New/Unexplained Change in Mental Status Sepsis Action Taken by Nursing Pulse Rate 136 H 135 H 135 H Pulse Rate [Apical] Pulse Rate from SpO2 Sensor 133 H 136 H 135 H Respiratory Rate 24 17 28 H Respiratory Effort / Characteristics Blood Pressure 141/102 H Blood Pressure [Right Arm] Blood Pressure Mean 115 Blood Pressure Mean [Right Arm] Blood Pressure Position [Right Arm] Pulse Oximetry 100 Oxygen Delivery Method 07/07/18 16:15 07/07/18 16:30 07/07/18 16:31 Temperature Temperature Source Sepsis Recent Fever Within 48 Hours Sepsis New/Unexplained Change in Mental Status Sepsis Action Taken by Nursing Pulse Rate 137 H 143 H 138 H Pulse Rate [Apical] Pulse Rate from SpO2 Sensor 137 H 142 H 137 H Respiratory Rate 21 19 25 H Respiratory Effort / Characteristics Blood Pressure 142/92 H 136/108 H Blood Pressure [Right Arm] Blood Pressure Mean 108 117 Blood Pressure Mean [Right Arm] Blood Pressure Position [Right Arm] Pulse Oximetry 100 98 96 Oxygen Delivery Method 07/07/18 16:45 07/07/18 16:46 07/07/18 17:00 Temperature Temperature Source Sepsis Recent Fever Within 48 Hours Sepsis New/Unexplained Change in Mental Status Sepsis Action Taken by Nursing Pulse Rate 142 H 142 H 137 H Pulse Rate [Apical] Pulse Rate from SpO2 Sensor 144 H 142 H 139 H Respiratory Rate 23 13 17 Respiratory Effort / Characteristics Blood Pressure 144/92 H 139/84 Blood Pressure [Right Arm] Blood Pressure Mean 109 102 Blood Pressure Mean [Right Arm] Blood Pressure Position [Right Arm] Pulse Oximetry 98 99 98 Oxygen Delivery Method 07/07/18 17:01 07/07/18 17:15 07/07/18 17:16 Temperature Temperature Source Sepsis Recent Fever Within 48 Hours Sepsis New/Unexplained Change in Mental Status Sepsis Action Taken by Nursing Pulse Rate 136 H 140 H 141 H Pulse Rate [Apical] Pulse Rate from SpO2 Sensor 138 H 140 H 141 H Respiratory Rate 18 21 26 H Respiratory Effort / Characteristics Blood Pressure 133/89 Blood Pressure [Right Arm] Blood Pressure Mean 103 Blood Pressure Mean [Right Arm] Blood Pressure Position [Right Arm] Pulse Oximetry 99 100 98 Oxygen Delivery Method 07/07/18 17:30 07/07/18 18:43 07/07/18 18:44 Temperature Temperature Source Sepsis Recent Fever Within 48 Hours Sepsis New/Unexplained Change in Mental Status Sepsis Action Taken by Nursing Pulse Rate 144 H 136 H 137 H Pulse Rate [Apical] Pulse Rate from SpO2 Sensor 143 H 137 H 134 H Respiratory Rate 22 19 Respiratory Effort / Characteristics Blood Pressure 121/88 137/91 Blood Pressure [Right Arm] Blood Pressure Mean 99 106 Blood Pressure Mean [Right Arm] Blood Pressure Position [Right Arm] Pulse Oximetry 96 93 98 Oxygen Delivery Method 07/07/18 18:45 07/07/18 18:46 07/07/18 19:00 Temperature Temperature Source Sepsis Recent Fever Within 48 Hours Sepsis New/Unexplained Change in Mental Status Sepsis Action Taken by Nursing Pulse Rate 135 H 132 H 135 H Pulse Rate [Apical] Pulse Rate from SpO2 Sensor 134 H 132 H 136 H Respiratory Rate 24 26 H 16 Respiratory Effort / Characteristics Blood Pressure 139/73 128/98 Blood Pressure [Right Arm] Blood Pressure Mean 95 108 Blood Pressure Mean [Right Arm] Blood Pressure Position [Right Arm] Pulse Oximetry 99 99 96 Oxygen Delivery Method 07/07/18 19:01 07/07/18 19:05 07/07/18 19:15 Temperature 38.0 C H Temperature Source Oral Sepsis Recent Fever Within 48 Hours Sepsis New/Unexplained Change in Mental Status Sepsis Action Taken by Nursing Pulse Rate 132 H 134 H Pulse Rate [Apical] Pulse Rate from SpO2 Sensor 131 H 132 H Respiratory Rate 23 24 Respiratory Effort / Characteristics Blood Pressure 140/88 Blood Pressure [Right Arm] Blood Pressure Mean 105 Blood Pressure Mean [Right Arm] Blood Pressure Position [Right Arm] Pulse Oximetry 100 98 Oxygen Delivery Method 07/07/18 19:16 07/07/18 19:30 07/07/18 19:31 Temperature Temperature Source Sepsis Recent Fever Within 48 Hours Sepsis New/Unexplained Change in Mental Status Sepsis Action Taken by Nursing Pulse Rate 131 H 136 H 136 H Pulse Rate [Apical] Pulse Rate from SpO2 Sensor 131 H 136 H 135 H Respiratory Rate 24 21 26 H Respiratory Effort / Characteristics Blood Pressure 148/85 H Blood Pressure [Right Arm] Blood Pressure Mean 106 Blood Pressure Mean [Right Arm] Blood Pressure Position [Right Arm] Pulse Oximetry 98 97 97 Oxygen Delivery Method 07/07/18 19:45 07/07/18 19:46 Temperature Temperature Source Sepsis Recent Fever Within 48 Hours Sepsis New/Unexplained Change in Mental Status Sepsis Action Taken by Nursing Pulse Rate 133 H 132 H Pulse Rate [Apical] Pulse Rate from SpO2 Sensor 133 H 132 H Respiratory Rate 24 26 H Respiratory Effort / Characteristics Blood Pressure 128/80 Blood Pressure [Right Arm] Blood Pressure Mean 96 Blood Pressure Mean [Right Arm] Blood Pressure Position [Right Arm] Pulse Oximetry 98 98 Oxygen Delivery Method GENERAL: Patient is in mild distress and dry heaving. HEENT: No acute trauma, normocephalic atraumatic, mucous membranes are dry, no nasal congestion, no scleral icterus. NECK: No stridor, no adenopathy, no meningismus, trachea is midline. LUNGS: Decreased breath sounds. No wheezing or rhonchi. No respiratory distress. HEART: Tachycardic with a regular rhythm. No murmurs. ABDOMEN: Soft, nontender, bowel sounds positive, no hernias, no peritonitis. EXTREMITIES: No cyanosis or edema, full range of motion of all the joints without pain or difficulty, no signs for acute trauma. NEUROLOGIC: Oriented x 3, no acute motor or sensory deficits, no focal weakness. Awake and alert. SKIN: No rash, no jaundice, no diaphoresis. Course 1436: Past medical records reviewed. The patient was evaluated in room A4A, and a complete history and physical examination were performed. 1541: I paged the hospitalist at this time. 1550: I reviewed the patient's case with DREA [facility] Hospitalist. She will evaluate the patient for further management. 1615: I reevaluated the patient and her family is now at bedside. I updated her on her test results and the treatment plan. She verbally agrees and understands. 1657: Lew would like to know if we can get an LP for the patient at this time. 1658: I paged radiology at this time. 1659: I discussed the patient's case with Dr. [facility]. He states that they will do the LP. 1702: I reevaluated the patient and updated her on the plan for an LP at this time. 1707: I updated Dr. Nataliia James at this time on the plan for the LP. 183: Dr. [facility] informed me that they were unsuccessful with the LP. 183: I updated Dr. Onur James at this time that they were unsuccessful with the LP. 1847: I reevaluated the patient and updated her on her resutls thus far. Consultations Consultation #1: I reviewed the patient's case with DREA [place]. She will evaluate the patient for further management. Time: 15:50 Consultation #2: I discussed the patient's case with Dr. Vergara. He states that they will do the LP. Time: 16:59 Consultation #3: I updated Dr. Nataliia James at this time on the plan for the LP. Time: 17:07 Additional Consultation(s): 183: Dr. Tamanna Mercado informed me that they were unsuccessful with the LP. 183: I updated Dr. Onur James at this time that they were unsuccessful with the LP. Administered Medications Ceftriaxone Sodium 2,000 mg/ (Dextrose) 70 mls @ 140 mls/hr IV Q12H DENIS Stop: 07/17/18 19:59 Last Infusion: 07/07/18 21:26 Dose: 0 mls/hr Documented by: [id number] Admin: 07/07/18 20:46 Dose: 140 mls/hr Documented by: [id number] Levetiracetam 1,500 mg/ (Dextrose) 115 mls @ 440 mls/hr IV 5 DENIS Stop: 07/07/18 23:00 Last Admin: 07/07/18 21:28 Dose: 440 mls/hr Documented by: [id number] Lorazepam (Ativan) 1 mg in 2 mls @ 2 mls/min IV UD PRN; Protocol PRN Reason: EtOH Withdrawl AWSS Score 6,7 Stop: 08/06/18 20:35 Last Admin: 07/07/18 21:08 Dose: 2 mls/min Documented by: [id number] Multivitamins 10 ml/ Thiamine HCl 100 mg/ Folic Acid 1 mg/Sodium Chloride 1,011.2 mls @ 500 mls/hr IV .Q2H2M DENIS Stop: 07/07/18 23:31 Last Admin: 07/07/18 21:31 Dose: 500 mls/hr Documented by: [id number] Discontinued Medications Hydrocortisone Sodium Succinate (Solu-Cortef) 100 mg IV NOW STA Stop: 07/07/18 16:18 Last Admin: 07/07/18 17:03 Dose: 100 mg Documented by: [id number] Acetaminophen (Ofirmev) 1,000 mg in 100 mls @ 400 mls/hr IV NOW STA Stop: 07/07/18 14:55 Last Infusion: 07/07/18 15:43 Dose: 0 mls/hr Documented by: [id number] Admin: 07/07/18 15:13 Dose: 400 mls/hr Documented by: [id number] Cefepime HCl 2,000 mg/ Syringe 20 mls @ 5.5 mls/min IV NOW STA Stop: 07/07/18 14:44 Last Admin: 07/07/18 15:24 Dose: 5.5 mls/min Documented by: [id number] Sodium Chloride (Nss 1000ml) 2,000 mls @ 999 mls/hr IV .Q2H1M ONE Stop: 07/07/18 16:41 Last Infusion: 07/07/18 17:33 Dose: 0 mls/hr Documented by: [id number] Admin: 07/07/18 15:23 Dose: 999 mls/hr Documented by: [id number] Promethazine HCl 6.25 mg/ (Sodium Chloride) 50.25 mls @ 201 mls/hr IV NOW STA Stop: 07/07/18 14:55 Last Infusion: 07/07/18 15:43 Dose: 0 mls/hr Documented by: [id number] Admin: 07/07/18 15:24 Dose: 201 mls/hr Documented by: [id number] Lorazepam (Ativan) 1 mg in 2 mls @ 2 mls/min IV NOW STA Stop: 07/07/18 16:18 Last Admin: 07/07/18 17:05 Dose: 2 mls/min Documented by: [id number] Lorazepam (Ativan) 2 mg in 4 mls @ 4 mls/min IV NOW STA Stop: 07/07/18 17:02 Last Admin: 07/07/18 17:19 Dose: 4 mls/min Documented by: [id number] Lactated Ringer's (Lr) 1,000 mls @ 999 mls/hr IV .Q1H1M STA Stop: 07/07/18 19:33 Last Infusion: 07/07/18 20:10 Dose: 0 mls/hr Documented by: [id number] Admin: 07/07/18 19:15 Dose: 999 mls/hr Documented by: [id number] Ketorolac Tromethamine (Toradol) 15 mg IV NOW STA Stop: 07/07/18 14:42 Last Admin: 07/07/18 15:13 Dose: 15 mg Documented by: [id number] Miscellaneous (Patient's Height And/Or Weight Needed) 1 ea N/A Q2H DENIS Stop: 08/06/18 19:44 Last Admin: 07/07/18 20:46 Dose: Not Given Documented by: [id number] Ondansetron HCl (Zofran) 4 mg IV NOW STA Stop: 07/07/18 14:42 Last Admin: 07/07/18 15:16 Dose: 4 mg Documented by: [id number] Medical Decision Making Differential Diagnosis Differential diagnoses include influenza or flu like illness, sepsis or bacteremia, electrolyte imbalance, dehydration, pneumonia, UTI. Medical Records Attestation: I reviewed the patient's medical records. Home Medications Current Medication List: was personally reviewed by me Laboratory Data Attestation: I reviewed the patient's lab results. Result diagrams: 07/07/18 14:20 07/07/18 14:20 Lab Results 07/07/18 07/07/18 07/07/18 Range/Units 14:20 14:20 14:20 WBC 13.54 H (4.8-10.8) K/uL RBC 3.99 L (4.2-5.4) M/uL Hgb 12.6 (12.0-16.0) g/dL Hct 38.0 (37-47) % MCV 95.2 (80-100) fL MCH 31.6 (25-34) pg MCHC 33.2 (32-36) g/dL RDW Std Deviation 68.2 H (36.4-46.3) fL RDW Coeff of Lisa 19.8 H (11.5-14.5) % Plt Count 273 (130-400) K/uL MPV 11.3 H (7.4-10.4) fL Immature Gran % (Auto) 0.3 % Neut % (Auto) 89.5 % Lymph % (Auto) 6.8 % Shannon % (Auto) 3.4 % Eos % (Auto) 0.0 % Baso % (Auto) 0.0 % Immature Gran # (Auto) 0.04 H (0.00-0.02) K/uL Neut # (Auto) 12.12 H (1.4-6.5) K/uL Lymph # (Auto) 0.92 L (1.2-3.4) K/uL Shannon # (Auto) 0.46 (0.11-0.59) K/uL Eos # (Auto) 0.00 (0-0.5) K/uL Baso # (Auto) 0.00 (0-0.2) K/uL PT 10.4 (9.0-12.0) Seconds INR 1.0 (0.9-1.1) APTT 30.1 (21.0-31.0) Seconds PTT Ratio 1.1 Sodium 135 L (136-145) mmol/L Potassium 3.9 (3.5-5.1) mmol/L Chloride 100 (98-107) mmol/L Carbon Dioxide 21 (21-32) mmol/L Anion Gap 14.0 H (3-11) BUN 10 (7-18) mg/dl Creatinine 0.97 (0.6-1.2) mg/dl Est Cr Clr Drug Dosing Not Reportable Est GFR ( Amer) 80.0 Est GFR (Non-Af Amer) 69.1 BUN/Creatinine Ratio 10.1 (10-20) Glucose 190 H (70-99) mg/dl Lactate (0.4-2.0) mmol/L Calcium 9.1 (8.5-10.1) mg/dl Magnesium 2.5 H (1.8-2.4) mg/dl Total Bilirubin 0.5 (0.2-1) mg/dl AST 38 H (15-37) U/L ALT 21 (12-78) U/L Alkaline Phosphatase 84 (45-117) U/L Total Creatine Kinase (26-192) U/L Total Protein 7.8 (6.4-8.2) gm/dl Albumin 3.9 (3.4-5.0) gm/dl Globulin 3.9 (2.5-4.0) gm/dl Albumin/Globulin Ratio 1.0 (0.9-2) Lipase (73-393) U/L Folate (>5.38) ng/ml Urine Color Urine Appearance (Clear) Urine pH (4.5-7.5) Ur Specific [place] (1.000-1.030) Urine Protein (Negative) Urine Glucose (UA) (Negative) Urine Ketones (Negative) Urine Blood (Negative) Urine Nitrite (Negative) Urine Bilirubin (Negative) Urine Urobilinogen (Negative) Ur Leukocyte Esterase (Negative) Urine WBC (Auto) (0-5) /hpf Urine RBC (Auto) (0-4) /hpf U Hyaline Cast (Auto) (0-5) /lpf U Epithel Cells (Auto) (0-5) /lpf Urine Bacteria (Auto) (Negative) Urine Opiates Screen (Neg) Ur Methadone, Qual (Neg) Urine Barbiturates (Neg) Ur Phencyclidine (PCP) (Neg) U Amphetamin/Meth Scrn (Neg) MDMA (Ecstasy) Screen (Neg) U Benzodiazepines Scrn (Neg) Ur Cocaine Metabolite (Neg) U Marijuana (THC) Screen (Neg) Ethyl Alcohol mg/dL (0-3) mg/dl Influenza Type A (PCR) (Neg) Influenza Type B (PCR) (Neg) 07/07/18 07/07/18 07/07/18 Range/Units 14:20 15:30 15:30 WBC (4.8-10.8) K/uL RBC (4.2-5.4) M/uL Hgb (12.0-16.0) g/dL Hct (37-47) % MCV (80-100) fL MCH (25-34) pg MCHC (32-36) g/dL RDW Std Deviation (36.4-46.3) fL RDW Coeff of Lisa (11.5-14.5) % Plt Count (130-400) K/uL MPV (7.4-10.4) fL Immature Gran % (Auto) % Neut % (Auto) % Lymph % (Auto) % Shannon % (Auto) % Eos % (Auto) % Baso % (Auto) % Immature Gran # (Auto) (0.00-0.02) K/uL Neut # (Auto) (1.4-6.5) K/uL Lymph # (Auto) (1.2-3.4) K/uL Shannon # (Auto) (0.11-0.59) K/uL Eos # (Auto) (0-0.5) K/uL Baso # (Auto) (0-0.2) K/uL PT (9.0-12.0) Seconds INR (0.9-1.1) APTT (21.0-31.0) Seconds PTT Ratio Sodium (136-145) mmol/L Potassium (3.5-5.1) mmol/L Chloride (98-107) mmol/L Carbon Dioxide (21-32) mmol/L Anion Gap (3-11) BUN (7-18) mg/dl Creatinine (0.6-1.2) mg/dl Est Cr Clr Drug Dosing Est GFR ( Amer) Est GFR (Non-Af Amer) BUN/Creatinine Ratio (10-20) Glucose (70-99) mg/dl Lactate 3.6 H* (0.4-2.0) mmol/L Calcium (8.5-10.1) mg/dl Magnesium (1.8-2.4) mg/dl Total Bilirubin (0.2-1) mg/dl AST (15-37) U/L ALT (12-78) U/L Alkaline Phosphatase (45-117) U/L Total Creatine Kinase 1190 H (26-192) U/L Total Protein (6.4-8.2) gm/dl Albumin (3.4-5.0) gm/dl Globulin (2.5-4.0) gm/dl Albumin/Globulin Ratio (0.9-2) Lipase (73-393) U/L Folate (>5.38) ng/ml Urine Color Urine Appearance (Clear) Urine pH (4.5-7.5) Ur Specific [place] (1.000-1.030) Urine Protein (Negative) Urine Glucose (UA) (Negative) Urine Ketones (Negative) Urine Blood (Negative) Urine Nitrite (Negative) Urine Bilirubin (Negative) Urine Urobilinogen (Negative) Ur Leukocyte Esterase (Negative) Urine WBC (Auto) (0-5) /hpf Urine RBC (Auto) (0-4) /hpf U Hyaline Cast (Auto) (0-5) /lpf U Epithel Cells (Auto) (0-5) /lpf Urine Bacteria (Auto) (Negative) Urine Opiates Screen (Neg) Ur Methadone, Qual (Neg) Urine Barbiturates (Neg) Ur Phencyclidine (PCP) (Neg) U Amphetamin/Meth Scrn (Neg) MDMA (Ecstasy) Screen (Neg) U Benzodiazepines Scrn (Neg) Ur Cocaine Metabolite (Neg) U Marijuana (THC) Screen (Neg) Ethyl Alcohol mg/dL (0-3) mg/dl Influenza Type A (PCR) Neg for Influ A (Neg) Influenza Type B (PCR) Neg for Influ B (Neg) 07/07/18 07/07/18 07/07/18 Range/Units 17:00 17:00 20:56 WBC (4.8-10.8) K/uL RBC (4.2-5.4) M/uL Hgb (12.0-16.0) g/dL Hct (37-47) % MCV (80-100) fL MCH (25-34) pg MCHC (32-36) g/dL RDW Std Deviation (36.4-46.3) fL RDW Coeff of Lisa (11.5-14.5) % Plt Count (130-400) K/uL MPV (7.4-10.4) fL Immature Gran % (Auto) % Neut % (Auto) % Lymph % (Auto) % Shannon % (Auto) % Eos % (Auto) % Baso % (Auto) % Immature Gran # (Auto) (0.00-0.02) K/uL Neut # (Auto) (1.4-6.5) K/uL Lymph # (Auto) (1.2-3.4) K/uL Shannon # (Auto) (0.11-0.59) K/uL Eos # (Auto) (0-0.5) K/uL Baso # (Auto) (0-0.2) K/uL PT (9.0-12.0) Seconds INR (0.9-1.1) APTT (21.0-31.0) Seconds PTT Ratio Sodium (136-145) mmol/L Potassium (3.5-5.1) mmol/L Chloride (98-107) mmol/L Carbon Dioxide (21-32) mmol/L Anion Gap (3-11) BUN (7-18) mg/dl Creatinine (0.6-1.2) mg/dl Est Cr Clr Drug Dosing Est GFR ( Amer) Est GFR (Non-Af Amer) BUN/Creatinine Ratio (10-20) Glucose (70-99) mg/dl Lactate (0.4-2.0) mmol/L Calcium (8.5-10.1) mg/dl Magnesium (1.8-2.4) mg/dl Total Bilirubin (0.2-1) mg/dl AST (15-37) U/L ALT (12-78) U/L Alkaline Phosphatase (45-117) U/L Total Creatine Kinase (26-192) U/L Total Protein (6.4-8.2) gm/dl Albumin (3.4-5.0) gm/dl Globulin (2.5-4.0) gm/dl Albumin/Globulin Ratio (0.9-2) Lipase 193 (73-393) U/L Folate 8.09 (>5.38) ng/ml Urine Color Urine Appearance (Clear) Urine pH (4.5-7.5) Ur Specific [place] (1.000-1.030) Urine Protein (Negative) Urine Glucose (UA) (Negative) Urine Ketones (Negative) Urine Blood (Negative) Urine Nitrite (Negative) Urine Bilirubin (Negative) Urine Urobilinogen (Negative) Ur Leukocyte Esterase (Negative) Urine WBC (Auto) (0-5) /hpf Urine RBC (Auto) (0-4) /hpf U Hyaline Cast (Auto) (0-5) /lpf U Epithel Cells (Auto) (0-5) /lpf Urine Bacteria (Auto) (Negative) Urine Opiates Screen (Neg) Ur Methadone, Qual (Neg) Urine Barbiturates (Neg) Ur Phencyclidine (PCP) (Neg) U Amphetamin/Meth Scrn (Neg) MDMA (Ecstasy) Screen (Neg) U Benzodiazepines Scrn (Neg) Ur Cocaine Metabolite (Neg) U Marijuana (THC) Screen (Neg) Ethyl Alcohol mg/dL < 3.0 (0-3) mg/dl Influenza Type A (PCR) (Neg) Influenza Type B (PCR) (Neg) 07/07/18 07/07/18 07/07/18 Range/Units 20:56 21:30 21:30 WBC (4.8-10.8) K/uL RBC (4.2-5.4) M/uL Hgb (12.0-16.0) g/dL Hct (37-47) % MCV (80-100) fL MCH (25-34) pg MCHC (32-36) g/dL RDW Std Deviation (36.4-46.3) fL RDW Coeff of Lisa (11.5-14.5) % Plt Count (130-400) K/uL MPV (7.4-10.4) fL Immature Gran % (Auto) % Neut % (Auto) % Lymph % (Auto) % Shannon % (Auto) % Eos % (Auto) % Baso % (Auto) % Immature Gran # (Auto) (0.00-0.02) K/uL Neut # (Auto) (1.4-6.5) K/uL Lymph # (Auto) (1.2-3.4) K/uL [place] # (Auto) (0.11-0.59) K/uL Eos # (Auto) (0-0.5) K/uL Baso # (Auto) (0-0.2) K/uL PT (9.0-12.0) Seconds INR (0.9-1.1) APTT (21.0-31.0) Seconds PTT Ratio Sodium (136-145) mmol/L Potassium (3.5-5.1) mmol/L Chloride (98-107) mmol/L Carbon Dioxide (21-32) mmol/L Anion Gap (3-11) BUN (7-18) mg/dl Creatinine (0.6-1.2) mg/dl Est Cr Clr Drug Dosing Est GFR ( Amer) Est GFR (Non-Af Amer) BUN/Creatinine Ratio (10-20) Glucose (70-99) mg/dl Lactate 0.8 (0.4-2.0) mmol/L Calcium (8.5-10.1) mg/dl Magnesium (1.8-2.4) mg/dl Total Bilirubin (0.2-1) mg/dl AST (15-37) U/L ALT (12-78) U/L Alkaline Phosphatase (45-117) U/L Total Creatine Kinase (26-192) U/L Total Protein (6.4-8.2) gm/dl Albumin (3.4-5.0) gm/dl Globulin (2.5-4.0) gm/dl Albumin/Globulin Ratio (0.9-2) Lipase (73-393) U/L Folate (>5.38) ng/ml Urine Color Yellow Urine Appearance Cloudy H (Clear) Urine pH 5.5 (4.5-7.5) Ur Specific [place] 1.032 H (1.000-1.030) Urine Protein 1+ H (Negative) Urine Glucose (UA) Negative (Negative) Urine Ketones 2+ H (Negative) Urine Blood 2+ H (Negative) Urine Nitrite Positive H (Negative) Urine Bilirubin Negative (Negative) Urine Urobilinogen Negative (Negative) Ur Leukocyte Esterase Negative (Negative) Urine WBC (Auto) 1-5 (0-5) /hpf Urine RBC (Auto) 5-10 H (0-4) /hpf U Hyaline Cast (Auto) 1-5 (0-5) /lpf U Epithel Cells (Auto) >30 H (0-5) /lpf Urine Bacteria (Auto) Negative (Negative) Urine Opiates Screen Neg (Neg) Ur Methadone, Qual Neg (Neg) Urine Barbiturates Neg (Neg) Ur Phencyclidine (PCP) Neg (Neg) U Amphetamin/Meth Scrn Neg (Neg) MDMA (Ecstasy) Screen Neg (Neg) U Benzodiazepines Scrn Pos H (Neg) Ur Cocaine Metabolite Neg (Neg) U Marijuana (THC) Screen Neg (Neg) Ethyl Alcohol mg/dL (0-3) mg/dl Influenza Type A (PCR) (Neg) Influenza Type B (PCR) (Neg) Imaging Data Radiologist's Impression: Radiology results as stated below per my review and the radiologist's interpretation: XR chest 1V portable HISTORY: Sepsis COMPARISON: Chest 01/26/2018. FINDINGS: No pleural effusions. No pneumothorax. The lungs are clear. The heart is normal in size. Old, healed left-sided rib fractures. Right jugular Port-A-Cath terminates at the SVC. Prior cholecystectomy. IMPRESSION: No acute process. Electronically signed by: Hadley Soni M.D. 07/07/2018 2:59 PM ECG Data Attestation: I personally reviewed and interpreted this ECG as follows: Indication: vomiting Rate (beats per minute): 137 Rhythm: sinus tachycardia Findings: no PVC and no ST elevation Blood Pressure Blood Pressure Findings: Elevated blood pressure Blood Pressure Disposition: further management by hospitalist [facility] Narrative The patient does have a leukocytosis, this would be consistent with infection. No concerning anemia. No coagulopathy. No significant electrolyte abnormality or kidney failure. No true hepatitis. No pancreatitis. Lactic acid level was elevated at 3.6, this could be consistent with infection/sepsis or even dehydra tion. Blood cultures are pending. Chest film did not show pneumonia or CHF. Influenza testing was negative. Urinalysis results are pending as the patient has not been able to provide an adequate sample. We were unable to obtain a sample via urinary catheter, her bladder was empty. The patient received IV saline, 2 L. She was given a 1 L lactated Ringer's bolus. She received IV Ativan for anxiety. She was given IV cefepime as antibiotic coverage. She received IV Zofran and IV Phenergan for nausea. She received IV Toradol for pain. She was given IV Tylenol. She was given hydrocortisone IV as stress dose steroids. The patient is comfortable and improved compared to arrival. She is quite ill though and I do think a hospital stay is warranted. She does meet criteria for sepsis. At this point, the source for the fever is not clear. The patient was seen by the hospitalist service, they requested a lumbar puncture. This was attempted under fluoroscopy. No fluid could be obtained. The patient presents with nausea vomiting diarrhea. She has a fever. She meets criteria for sepsis. She is quite dehydrated. She remains tachycardic despite IV fluids. A hospital stay is clearly warranted. Further workup is warranted. Antibiotic therapy is warranted. I spoke to the patient and her family about my findings and concerns. They are in complete understanding. Case management has been involved. Impression & Plan Sepsis, Dehydration, Vomiting and diarrhea Critical Care Time I have personally spent greater than 35 minutes of critical care time in the direct management of this patient. This includes bedside care, interpretation of diagnostic studies, and testing, discussion with consultants, patient, and family members, and other required patient management activities. This 35 minutes is in excess of all separately billable procedures. Critical Care Time: Yes Total Critical Care Time: 35 Discharge Plan Visit Data *Final* Discharge Date/Time: 07/07/18 19:46 Chief Complaint: GI Assessment ED Provider: Geovanny Arango Discharge Problem: Sepsis, Dehydration, Vomiting and diarrhea Patient Disposition: Admitted As Inpatient Discharge Instructions Interventions: ED Discharge Assessment Last Done: 07/07/18 19:46 Discharge Problem: Sepsis Qualifiers: Sepsis type: sepsis due to unspecified organism Qualified Code(s): A41.9 - Sepsis, unspecified organism The scribe's documentation has been prepared under my direction and personally reviewed by me in its entirety. I confirm that the note above accurately reflects all work, treatment, procedures, and medical decision making performed by me.
--- NOTE | 2018-07-07 20:05 | CT Scan Report ---
CT SCAN OF THE ABDOMEN AND PELVIS WITHOUT IV CONTRAST CLINICAL HISTORY: Generalized abdominal pain. Fever. COMPARISON STUDY: Abdominal CT dated 01/26/2018. TECHNIQUE: CT scan of the abdomen and pelvis is performed from the lung bases to the proximal femora. Images are reviewed in the axial, sagittal, and coronal planes. IV contrast was not administered for this examination as per the referring clinician. Note that the examination was performed in signific antly suboptimal fashion without oral and IV contrast. A dose lowering technique was utilized adherin g to the principles of ALARA. CT DOSE: 272.58 mGy.cm FINDINGS: Lung bases: The heart is normal in size and without pericardial effusion. The lung bases are clear no ting dependent atelectasis. Liver: The unenhanced liver is normal in size and contour. The liver demonstrates diffusely diminishe d attenuation consistent with hepatic steatosis. There is no intrahepatic biliary ductal dilatation. Gallbladder: Surgically absent noting clips in the gallbladder fossa. Spleen: Normal in size and attenuation. Pancreas: The unenhanced pancreas is moderately atrophic and grossly unremarkable. Adrenal glands: Unremarkable. Kidneys: The unenhanced kidneys are normal in size and without hydronephrosis. There are no renal cordell culi identified. There is no evidence of contour deforming renal mass lesion. Abdominal vasculature: The abdominal aorta is normal in course and caliber. Stomach and bowel: There is a small hiatal hernia. Postoperative change is noted involving the stomac h. No bowel obstruction is seen. The appendix is well-visualized and normal. Peritoneum: There is no intraperitoneal free air or abdominal ascites. Lymphadenopathy: None. Pelvic viscera: The bladder is normal as visualized. The uterus is surgically absent. No adnexal lesi on is seen. Skeletal structures: The skeletal structures are osteopenic. There are chronic superior endplate comp ression deformities of T9, T10, T11, and T12. There are healed bilateral rib fractures. No lytic or b lastic lesions are seen. IMPRESSION: 1. Suboptimal examination without oral and IV contrast. 2. There are no acute infectious or inflammatory findings in the abdomen or pelvis. 3. Hepatic steatosis. 4. Postoperative changes as above. Electronically signed by: Geovanny Marcelo M.D. 07/07/2018 8:03 PM
[2018-07-07] MEDS ORDERED: LORazepam 2 MG/4 ML VIAL IV PRN (20:36)
[2018-07-07] MEDS ORDERED: ONDANSETRON INJ 2 MG/ML 2 ML VIAL IV PRN (20:36)
[2018-07-07] MEDS ORDERED: LORazepam 3 MG/6 ML VIAL IV PRN (20:36)
[2018-07-07] MEDS ORDERED: LORazepam 1 MG TAB PO PRN (20:36)
[2018-07-07] MEDS ORDERED: GABAPENTIN 1200MG ALCOHOL WITHDRAWAL LOAD PO STA (20:36)
[2018-07-07] MEDS ORDERED: ATIVAN IV ALCOHOL WITHDRAWL IV SCH (20:36)
[2018-07-07] MEDS ORDERED: ACETAMINOPHEN 325 MG TAB PO PRN (20:36)
[2018-07-07] MEDS: cefTRIAXone SODIUM 2,000 MG in DEXTROSE 5% 50 ML IV SCH (20:46)
[2018-07-07] MEDS ORDERED: PANTOprazole 40 MG TAB PO SCH (21:00)
[2018-07-07] MEDS: LORazepam 1 MG/2 ML VIAL IV PRN ×2 (21:08→23:45)
[2018-07-07] MEDS ORDERED: levETIRAcetam 1,500 MG in DEXTROSE 5% 100 ML IV SCH (21:15)
[2018-07-07] MEDS ORDERED: VANCOMYCIN CONSULT ACTIVE PRN (21:24)
[2018-07-07] MEDS ORDERED: VANCOMYCIN HCL 1,500 MG in SODIUM CHLORIDE 0.9% 500 ML IV STA (21:25)
[2018-07-07] MEDS ORDERED: MULTI-VITAMIN INFUSION 10 ML, THIAMINE HCL 100 MG, FOLIC ACID 1 MG in SODIUM CHLORIDE 0... IV SCH (21:30)
[2018-07-07 21:53] LABS: Appearance Urine Cloudy (Clear); Bacteria Urine Automated Negative (Negative); Bilirubin Urine Negative (Negative); Blood Urine 2+ (Negative); Color Urine Yellow; Epithelial Cell Urine Auto >30 /lpf (0-5); Glucose Urine UA Negative (Negative); Ketones Urine 2+ (Negative); Leukocyte Esterase Urine Negative (Negative); Nitrite Urine Positive (Negative); Protein Urine 1+ (Negative); Specific Gravity Urine 1.032 (1.000-1.030); Urobilinogen Urine Negative (Negative); pH Urine 5.5 (4.5-7.5)
[2018-07-07 22:01] LABS: Amphetamines+Metham, Urine Neg (Neg); Barbiturates, Urine Neg (Neg); Benzodiazepine, Urine Pos (Neg); Cocaine, Urine Neg (Neg); MDMA (Ecstacy), Urine Neg (Neg); Methadone, Urine Neg (Neg); Opiate, Urine Neg (Neg); Phencyclidine, Urine Neg (Neg)
[2018-07-07] MEDS: ALBUTEROL HFA 8 GM INHALER INH SCH (22:54)
[2018-07-07] MEDS: PANTOprazole 40 MG in SYRINGE 0 ML IV SCH (22:54)
[2018-07-07] MEDS ORDERED: GABAPENTIN 600 MG TAB PO SCH (23:00)
[2018-07-07] MEDS: THIAMINE HCL 100 MG TAB PO SCH (23:31)
[2018-07-08 05:40] LABS: Albumin Level 2.8 gm/dl (3.4-5.0); BUN Creatinine Ratio 14.4 (10-20); Bilirubin,Total 0.3 mg/dl (0.2-1); Calcium 7.3 mg/dl (8.5-10.1); Creatinine Clr Calc Pharmacy 99.9 ml/min; Est GFR (African American) 120.5; Est GFR (Non-African American) 103.9; Globulin 2.9 gm/dl (2.5-4.0); Total Protein 5.7 gm/dl (6.4-8.2)
[2018-07-08] MEDS ORDERED: INFLUENZA ADMINISTRATION CHARGE ONE (06:00)
[2018-07-08] MEDS: GABAPENTIN 600 MG TAB PO SCH ×3 (06:24→20:10)
[2018-07-08] MEDS ORDERED: INFLUENZA VIRUS QUAD VACCINE 0.5 ML SYR IM ONE (08:00)
[2018-07-08] MEDS: cefTRIAXone SODIUM 2,000 MG in DEXTROSE 5% 50 ML IV SCH ×2 (08:21→20:09)
[2018-07-08] MEDS: PANTOprazole 40 MG in SYRINGE 0 ML IV SCH ×2 (08:21→21:54)
[2018-07-08] MEDS: THIAMINE HCL 100 MG TAB PO SCH (08:23)
[2018-07-08] MEDS: FEXOFENADINE HCL 180 MG TAB PO SCH (08:23)
[2018-07-08] MEDS: MONTELUKAST SODIUM 10 MG TABLET PO SCH (08:23)
[2018-07-08] MEDS: ALBUTEROL HFA 8 GM INHALER INH SCH ×4 (08:24→20:10)
[2018-07-08] MEDS: ENOXAPARIN INJ 40 MG/0.4 ML SYR SQ SCH (08:25)
--- NOTE | 2018-07-08 10:37 | Hospitalist Progress Note ---
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 -In the setting of alcohol withdrawal, possible sepsis and possible post-ictal state -H/o alcohol use, etoh level <3, utox pending, CK pending (2) Sepsis: Fever of 38.1, HR of 26, leukocytosis of 13.54, lactate of 3.6, now down to 0.8 -Urine is likely source: CXR without evidence of infiltrate, Flu PCR negative, urine pending -Lumbar puncture attempted by radiology but unsuccessful sample -Cultures are Neg so far, on Vanco and Rocephin (3) Seizure disorder: History of seizure disorder. Has not taken Keppra in at least 2 days -Possible post-ictal state with delirium -Given IV Keppra 1,500. Will continue dosing at IV Keppra 1,500mg Q12H -Seizure precautions -Neurology consult Pending (4) Alcohol use: Unsure of last drink but serum alcohol level <3. BP and HR elevated upon arrival, so concern for withdrawal -Previously documented alcohol abuse. Family unsure of recent drinking habits -Alcohol withdrawal protocol ordered including gabapentin and IV ativan PRN -Banana bag, Thiamine PO daily (5) Vomiting and diarrhea: Will monitor, Antiemetics (6) Abdominal pain: Persistent symptoms for 3 days, diffuse abdominal pain -Lipase wnl, abdominal CT negative -Anti-emetics, IV fluids -Stool culture pending (7) Anxiety: Receiving IV ativan per withdrawal protocol (8) Peptic ulcer disease: PPI (9) History of gastrectomy: H/o total gastrectomy in 2003 due to peptic ulcer disease -Continue PPI (10) DVT prophylaxis: SCDs with plan to start SQ Lovenox tomorrow Code status: FULL PCP: Kathia Dispo: Admitted to telemetry. Discharge planning ordered. 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 History was limited due to delirious state. Patient lives alone. Is partially blind but manages own medications with brightly colored labels that help her identify meds. Was last known to be well on Friday when daughter spoke to patient on the phone. Reportedly developed nausea, vomiting, diarrhea and aching all over on Friday evening. Has not been able to keep medications down for the past two days due to frequent bouts of emesis. Denies any sick contacts or eating unusual foods. Feels confused currently, which is how she feels after seizures. Does not remember any falls or seizures at home. Has been drinking alcohol at home but cannot quantify amount or determine when last drink was--"I thought I was drinking water at home but it tasted bitter so it may have been alcohol". Called EMS and daughter met her in ED. Per daughter, patient is much more confused than baseline, which is how she acts after seizures. c/o aching all over body, primarily in neck and along spine. Has a headache and is sensitive to light. Notes abdominal pain. PT lucid and wants to go home today. Was febrile last evening, +Failed LP-no fl uid obtained ROS-No Headache, No Visual Changes, No Nausea, No Vomiting, No Fever, No Chills, No Neck Pain or Stiffness, No Chest Pain, No Palpitations, No SOB, No KNOX, No Co ugh, No Sputum, No Wheezing, No Abdominal Pain, No Diarrhea, No Hematemesis, No Hemoptysis, No Unexpected Weight Loss, No Flank pain, No Melena, No Hematochezia, No Frequency, No Urgency, No Burning, No Hematuria, No Rashes, No Diaphoresis. Appetite is Normal Physical Exam Gen-AAO x 3, NAD, febrile last night Head-NCAT, EOMI, PERRLA, Anicteric Sclera, No Posterior Pharyngeal Erythema Neck-Supple, No JVD, No Thyromegaly, No Masses, No LAD, No Bruits Lungs-Clear to Auscultation Bilaterally, No Rales, No Rhonchi, No Wheezing, No Crepitus Chest-No S4, +S1, +S2, No S3, No Murmurs, No Rubs, No Gallops, No Ectopy Abdomen-Soft, Bowel Sounds Present, Non Tender, Non Distended, No Hepatomegaly, No Splenomegaly, No Palpable Masses, No Rebound, No Rigidity, No Guarding Musculoskeletal-Full Range of Motion Bilaterally, No CVAT Extremities-No Cyanosis, No Clubbing, No Edema Nuero-Cranial Nerves II-XII grossly intact, Motor WNL, DTRs WNL, Strength WNL, Non Focal Psych-Normal Mood Physical Exam Vital Signs (Past 24 Hours): Last Vital Signs Temp 36.6 C 07/08/18 07:43 Pulse 113 H 07/08/18 07:43 Resp 28 H 07/08/18 07:43 BP 120/76 07/08/18 07:43 Pulse Ox 100 07/08/18 07:43 Results & Data Laboratory Results Current Diagnoses Sepsis, unspecified organism (07/07/18) Anxiety disorder, unspecified (07/07/18) Epilepsy, unspecified, not intractable, without status epilepticus (07/07/18) Metabolic encephalopathy (07/07/18) Peptic ulcer, site unspecified, unspecified as acute or chronic, without hemorrhage or perforation (07/07/18) Unspecified abdominal pain (07/07/18) Vomiting, unspecified (07/07/18) Diarrhea, unspecified (07/07/18) Other specified health status (07/07/18) Acquired absence of stomach [part of] (07/07/18) Allergies latex Allergy (Severe, Verified 07/07/18 16:38) RASH tobramycin Allergy (Severe, Verified 07/07/18 16:38) BLINDNESS Penicillins Allergy (Intermediate, Verified 07/07/18 16:38) RASH Quinolones Allergy (Intermediate, Verified 07/07/18 16:38) RASH Sulfa (Sulfonamide Antibiotics) Allergy (Intermediate, Verified 07/07/18 16:38) HIVES Aminoglycosides Allergy (Unknown, Verified 07/07/18 16:38) UNKNOWN ciprofloxacin Allergy (Verified 07/07/18 16:48) INSIDE OF LIPS BURN & PEEL doxycycline Allergy (Verified 07/07/18 16:49) Hives, VOMITING iron dextran complex Adverse Reaction (Intermediate, Verified 07/07/18 16:38) SHORT OF BREATH W/ HEART RACING lactose Adverse Reaction (Intermediate, Verified 07/07/18 16:38) NAUSEA, GI UPSET citalopram Adverse Reaction (Verified 07/07/18 16:48) RESTLESS CONTRASTMEDIA Allergy (Mild, Uncoded 07/07/18 16:38) FACIAL SWELLING WITH IV CONTRAST Ferric Oxide Adverse Reaction (Intermediate, Uncoded 07/07/18 16:38) HIVES Height/Weight/Isolation Height 5 ft 7 in Weight 63.2 kg Chemistry 07/07/18 07/08/18 14:20 04:54 Sodium 135 L 139 Potassium 3.9 4.0 Chloride 100 111 H Carbon Dioxide 21 23 Anion Gap 14.0 H 5.0 BUN 10 10 Creatinine 0.97 0.67 D Glucose 190 H 88 Urinalysis 07/07/18 21:30 Urine Color Yellow Urine Appearance Cloudy H Urine pH 5.5 Ur Specific [place] 1.032 H Urine Protein 1+ H Urine Glucose (UA) Negative Urine Ketones 2+ H Urine Blood 2+ H Urine Nitrite Positive H Urine Bilirubin Negative Microbiology 07/07/18 15:21 Blood Blood Culture - Pending 07/07/18 14:20 Blood Blood Culture - Pending (1) Sepsis Sepsis type: sepsis due to unspecified organism Qualified Code(s): A41.9 - Sepsis, unspecified organism
[2018-07-08] MEDS ORDERED: VANCOMYCIN HCL 1,000 MG in SODIUM CHLORIDE 0.9% 250 ML IV SCH (11:00)
--- NOTE | 2018-07-08 14:48 | Pharmacy Report ---
Pharmacy Abx Dose Short Note - Date of Service July 08, 2018 - Assessment & Plan Assessment * 47 year old F receiving VANCOMYCIN + CEFTRIAXONE for possible bacterial meningitis * Unable to perform LP * BLCX's: no growth to date * Currently afebrile * Day 2 of ABX therapy * Renal fxn improved over last 23 hrs (SCr 0.97 --> 0.67) Plan Vancomycin * Pt was given 1500mg (~24mg/kg) IV loading dose x 1 yesterday then started on 1000mg (~16mg/kg) IV Q 12 hrs * Given improved renal fxn, will increase maint dose to 1250mg (~20mg/kg) IV Q 12 hrs. Next dose will be given early due to quicker clearance. * Goal trough level for meningitis : 15 to 20 mcg/mL * Will check trough w/ 3rd dose of new regimen. * New p'kinetic estimates: Vd 0.7L/kg, half-life ~8-9 hours Pharmacy will continue to follow and will adjust dose/frequency as necessary. Thank you.
--- NOTE | 2018-07-08 14:56 | Neurology Consultation ---
Date of Consultation July 08, 2018 Assessment & Plan (1) Seizure disorder: 1. restart Keppra 1500 mg q 12 hours 2. back to baseline 3. CK is elevated -should increase fluids and monitor 4. EtOH protocol in place 5. PT/OT for discharge needs 6. social scientist - patient is not compliant with medication therapy and should have some intervention for organizing and home safety review 7. LTM is not an option for her but she may consent to 72 hours study as out patient- medication compliance needs to be addressed first 8. gabapetin 400 mg TID for foot pain but can also be used as secondary seizure medication 9. LP done but due to dehydration no fluid was retrieved patient appears to be back at baseline 10. treat UTI Supervising Physician Co-Signing Physician Notes I have seen and discussed above patient with Dr Caitlni Hurst, neurology PT seen, Probable sz sec vomiting diarrhea and presumed low levels. Pt sz control incomplete but there have been concerns abt compliance with meds due to legal blindness. Before changing meds with see if her pharmacy can package them. Would rec home nursing to go to home to assess compliance and keppra levels weekly x 1 week. Then if still sz with adequate levels would consider addition of another anticonvulsants, ambulatory EEG. CALDERON Hurst MD History of Present Illness Reason for Consultation: h/o seizure disorder, possible unwitnessed seizure Requesting Physician: Beau Ernandez DO Attending Physician: Beau Ernandez DO History of Present Illness Hiwot is a 47 year old female with PMH- seizure disorder, anxiety, Von Willebrand's disease, history of gastroparesis, history of blindness from aminoglycoside antibiotics presented with N,V,D x 3 days. She lives alone and legally blind but manages own medications but knows she has not done very well with them lately. She developed nausea, vomiting, diarrhea and aching all over on Friday evening and was unable to keep her meds down for the past two days due to frequent bouts of emesis. She called the EMS herself but then does not remember the ambulance coming or anything until she was in the ED but it was still foggy memory. She has been drinking some alcohol at home but cannot quanify amount or determine when last drink was--"I thought I was drinking water at home but it tasted bitter so it may have been alcohol". She was confused in the ED and was admitted for observation and loaded with Keppra and is currently on EtOH withdrawal protocol. She state she is back to her baseline but knows she needs to be more diligent about taking her meds. She does not think her daughter or son has time to help her with this. She was suppose to be scheduled for LTM at [facility] but she can't do this because of her pets at home and transportation obsticles. She would be willing to do a 72 hour EEG as outpatient if needed. denies current CP, SOB, abdominal pain, one sided weakness, numbness tingling, N, V, headache, swallowing issues. Allergies Allergy/AdvReac Type Severity Reaction Status Date / Time latex Allergy Severe RASH Verified 07/07/18 16:38 tobramycin Allergy Severe BLINDNESS Verified 07/07/18 16:38 Penicillins Allergy Intermediate RASH Verified 07/07/18 16:38 Quinolones Allergy Intermediate RASH Verified 07/07/18 16:38 Sulfa (Sulfonamide Allergy Intermediate HIVES Verified 07/07/18 16:38 Antibiotics) Aminoglycosides Allergy Unknown UNKNOWN Verified 07/07/18 16:38 ciprofloxacin Allergy INSIDE OF Verified 07/07/18 16:48 LIPS BURN & PEEL doxycycline Allergy Hives, Verified 07/07/18 16:49 VOMITING iron dextran complex AdvReac Intermediate SHORT OF Verified 07/07/18 16:38 BREATH W/ HEART RACING lactose AdvReac Intermediate NAUSEA, GI Verified 07/07/18 16:38 UPSET citalopram AdvReac RESTLESS Verified 07/07/18 16:48 CONTRASTMEDIA Allergy Mild FACIAL Uncoded 07/07/18 16:38 SWELLING WITH IV CONTRAST Ferric Oxide AdvReac Intermediate HIVES Uncoded 07/07/18 16:38 Home Medications Home Medications Medication Instructions Recorded Confirmed Type albuterol sulfate 2 puff INHALATION QID 01/29/18 07/07/18 History cyclobenzaprine 5 mg PO TID PRN 01/29/18 07/07/18 History fexofenadine 180 mg PO DAILY 01/29/18 07/07/18 History furosemide 40 mg PO DAILY 01/29/18 07/07/18 History gabapentin 400 mg PO TID 01/29/18 07/07/18 History montelukast 10 mg PO DAILY 01/29/18 07/07/18 History pantoprazole 40 mg PO BID 01/29/18 07/07/18 History potassium chloride 20 meq PO DAILY 01/29/18 07/07/18 History promethazine 25 mg PO Q8 PRN 01/29/18 07/07/18 History temazepam 30 mg PO HS PRN 01/29/18 07/07/18 History eletriptan [Relpax] 40 mg PO UD PRN 07/07/18 07/07/18 History levetiracetam [Keppra] 1,500 mg PO Q12 07/07/18 07/07/18 History lorazepam 1 mg PO Q6H PRN 07/07/18 07/07/18 History trazodone 50 mg PO HS 07/07/18 07/07/18 History zoledronic mfdg-[id number]-znlgi 5 mg IV YEARLY 07/07/18 07/07/18 History [Reclast] Patient History Medical History DVT prophylaxis (Chronic) Anxiety (Chronic) Depression (Chronic) Peptic ulcer disease (Resolved) Von Willebrand disease (Chronic) Hypoparathyroidism (Chronic) Gastroparesis (Chronic) Blindness (Chronic) Surgical History History of gastrectomy (Chronic) History of cholecystectomy (Resolved) Family History Father Diabetes Mother Von Willebrand disease Social History Communication Ability: Effective Beliefs That Will Affect Care: None marital status: Current Living Situation: Alone current occupational status: disabled Other Information That Helps Us Care for You: No Feels Safe at Home: Yes and Hesitant to Answer Safety Concerns: Feels Safe At This Time Smoking Status: Never smoker Hx Alcohol Use: Yes Hx Substance Use: No Physical Exam Vital Signs (Past 24 Hours): Last Vital Signs Temp 36.8 C 07/08/18 12:03 Pulse 118 H 07/08/18 12:03 Resp 18 07/08/18 12:03 BP 118/74 07/08/18 12:03 Pulse Ox 95 07/08/18 12:03 Physical Exam: Constitutional: appearance nourished, healthy and normal Ears, Nose, Mouth and Throat: mucous membranes moist, no injection and skin normal, eyes normal Cardiovascular: normal S-1 and S-2 and regular rate and rhythm Respiratory: clear to auscultation (CTA) and no rales, ronchi or wheeze Musculoskeletal: no peripheral edema and good distal pulses Skin: multiple areas of bruising, right LE, bruising and acutely tender with touch Eyes: extraocular muscles intact (EOMI) and pupils equal, round and reactive to light (PERRL) NEUROLOGIC EXAMINATION: Mental status: Alert and interactive Oriented to full date and location Oriented to person Speech fluent with no evidence of aphasia Cranial Nerves smile eye brow raise symmetric Reflexes: Deep tendon reflexes were symmetrical and graded 2/5. Plantar responses were flexor. Sensory: cool and light touch intact, acutely tender right LE Coordination: rapid hand movements intact Gait/Stance: Posture sitting up in bed. Motor: Negative for pronator drift of out stretched arms with eyes closed. Strength: biceps triceps hand shipping weigher 5/5 bilaterally hip flex plantar flex ext left 5/5, right unable due to foot pain. right GT strength intact Results & Data Laboratory Results Lab Results 07/07/18 07/07/18 07/07/18 Range/Units 14:20 14:20 14:20 WBC 13.54 H (4.8-10.8) K/uL RBC 3.99 L (4.2-5.4) M/uL Hgb 12.6 (12.0-16.0) g/dL Hct 38.0 (37-47) % MCV 95.2 (80-100) fL MCH 31.6 (25-34) pg MCHC 33.2 (32-36) g/dL RDW Std Deviation 68.2 H (36.4-46.3) fL RDW Coeff of Lisa 19.8 H (11.5-14.5) % Plt Count 273 (130-400) K/uL MPV 11.3 H (7.4-10.4) fL Immature Gran % (Auto) 0.3 % Neut % (Auto) 89.5 % Lymph % (Auto) 6.8 % [place] % (Auto) 3.4 % Eos % (Auto) 0.0 % Baso % (Auto) 0.0 % Immature Gran # (Auto) 0.04 H (0.00-0.02) K/uL Neut # (Auto) 12.12 H (1.4-6.5) K/uL Lymph # (Auto) 0.92 L (1.2-3.4) K/uL [place] # (Auto) 0.46 (0.11-0.59) K/uL Eos # (Auto) 0.00 (0-0.5) K/uL Baso # (Auto) 0.00 (0-0.2) K/uL PT 10.4 (9.0-12.0) Seconds INR 1.0 (0.9-1.1) APTT 30.1 (21.0-31.0) Seconds PTT Ratio 1.1 Sodium 135 L (136-145) mmol/L Potassium 3.9 (3.5-5.1) mmol/L Chloride 100 (98-107) mmol/L Carbon Dioxide 21 (21-32) mmol/L Anion Gap 14.0 H (3-11) BUN 10 (7-18) mg/dl Creatinine 0.97 (0.6-1.2) mg/dl Est Cr Clr Drug Dosing Not Reportable Est GFR ( Amer) 80.0 Est GFR (Non-Af Amer) 69.1 BUN/Creatinine Ratio 10.1 (10-20) Glucose 190 H (70-99) mg/dl Lactate (0.4-2.0) mmol/L Calcium 9.1 (8.5-10.1) mg/dl Magnesium 2.5 H (1.8-2.4) mg/dl Total Bilirubin 0.5 (0.2-1) mg/dl AST 38 H (15-37) U/L ALT 21 (12-78) U/L Alkaline Phosphatase 84 (45-117) U/L Total Creatine Kinase (26-192) U/L Total Protein 7.8 (6.4-8.2) gm/dl Albumin 3.9 (3.4-5.0) gm/dl Globulin 3.9 (2.5-4.0) gm/dl Albumin/Globulin Ratio 1.0 (0.9-2) Lipase (73-393) U/L Folate (>5.38) ng/ml Urine Color Urine Appearance (Clear) Urine pH (4.5-7.5) Ur Specific [place] (1.000-1.030) Urine Protein (Negative) Urine Glucose (UA) (Negative) Urine Ketones (Negative) Urine Blood (Negative) Urine Nitrite (Negative) Urine Bilirubin (Negative) Urine Urobilinogen (Negative) Ur Leukocyte Esterase (Negative) Urine WBC (Auto) (0-5) /hpf Urine RBC (Auto) (0-4) /hpf U Hyaline Cast (Auto) (0-5) /lpf U Epithel Cells (Auto) (0-5) /lpf Urine Bacteria (Auto) (Negative) Nasal Screen MRSA (PCR) (Negative) Urine Opiates Screen (Neg) Ur Methadone, Qual (Neg) Urine Barbiturates (Neg) Ur Phencyclidine (PCP) (Neg) U Amphetamin/Meth Scrn (Neg) MDMA (Ecstasy) Screen (Neg) U Benzodiazepines Scrn (Neg) Ur Cocaine Metabolite (Neg) U Marijuana (THC) Screen (Neg) Ethyl Alcohol mg/dL (0-3) mg/dl Influenza Type A (PCR) (Neg) Influenza Type B (PCR) (Neg) 07/07/18 07/07/18 07/07/18 Range/Units 14:20 15:30 15:30 WBC (4.8-10.8) K/uL RBC (4.2-5.4) M/uL Hgb (12.0-16.0) g/dL Hct (37-47) % MCV (80-100) fL MCH (25-34) pg MCHC (32-36) g/dL RDW Std Deviation (36.4-46.3) fL RDW Coeff of Lisa (11.5-14.5) % Plt Count (130-400) K/uL MPV (7.4-10.4) fL Immature Gran % (Auto) % Neut % (Auto) % Lymph % (Auto) % [place] % (Auto) % Eos % (Auto) % Baso % (Auto) % Immature Gran # (Auto) (0.00-0.02) K/uL Neut # (Auto) (1.4-6.5) K/uL Lymph # (Auto) (1.2-3.4) K/uL [place] # (Auto) (0.11-0.59) K/uL Eos # (Auto) (0-0.5) K/uL Baso # (Auto) (0-0.2) K/uL PT (9.0-12.0) Seconds INR (0.9-1.1) APTT (21.0-31.0) Seconds PTT Ratio Sodium (136-145) mmol/L Potassium (3.5-5.1) mmol/L Chloride (98-107) mmol/L Carbon Dioxide (21-32) mmol/L Anion Gap (3-11) BUN (7-18) mg/dl Creatinine (0.6-1.2) mg/dl Est Cr Clr Drug Dosing Est GFR ( Amer) Est GFR (Non-Af Amer) BUN/Creatinine Ratio (10-20) Glucose (70-99) mg/dl Lactate 3.6 H* (0.4-2.0) mmol/L Calcium (8.5-10.1) mg/dl Magnesium (1.8-2.4) mg/dl Total Bilirubin (0.2-1) mg/dl AST (15-37) U/L ALT (12-78) U/L Alkaline Phosphatase (45-117) U/L Total Creatine Kinase 1190 H (26-192) U/L Total Protein (6.4-8.2) gm/dl Albumin (3.4-5.0) gm/dl Globulin (2.5-4.0) gm/dl Albumin/Globulin Ratio (0.9-2) Lipase (73-393) U/L Folate (>5.38) ng/ml Urine Color Urine Appearance (Clear) Urine pH (4.5-7.5) Ur Specific [place] (1.000-1.030) Urine Protein (Negative) Urine Glucose (UA) (Negative) Urine Ketones (Negative) Urine Blood (Negative) Urine Nitrite (Negative) Urine Bilirubin (Negative) Urine Urobilinogen (Negative) Ur Leukocyte Esterase (Negative) Urine WBC (Auto) (0-5) /hpf Urine RBC (Auto) (0-4) /hpf U Hyaline Cast (Auto) (0-5) /lpf U Epithel Cells (Auto) (0-5) /lpf Urine Bacteria (Auto) (Negative) Nasal Screen MRSA (PCR) (Negative) Urine Opiates Screen (Neg) Ur Methadone, Qual (Neg) Urine Barbiturates (Neg) Ur Phencyclidine (PCP) (Neg) U Amphetamin/Meth Scrn (Neg) MDMA (Ecstasy) Screen (Neg) U Benzodiazepines Scrn (Neg) Ur Cocaine Metabolite (Neg) U Marijuana (THC) Screen (Neg) Ethyl Alcohol mg/dL (0-3) mg/dl Influenza Type A (PCR) Neg for Influ A (Neg) Influenza Type B (PCR) Neg for Influ B (Neg) 07/07/18 07/07/18 07/07/18 Range/Units 17:00 17:00 20:25 WBC (4.8-10.8) K/uL RBC (4.2-5.4) M/uL Hgb (12.0-16.0) g/dL Hct (37-47) % MCV (80-100) fL MCH (25-34) pg MCHC (32-36) g/dL RDW Std Deviation (36.4-46.3) fL RDW Coeff of Lisa (11.5-14.5) % Plt Count (130-400) K/uL MPV (7.4-10.4) fL Immature Gran % (Auto) % Neut % (Auto) % Lymph % (Auto) % [place] % (Auto) % Eos % (Auto) % Baso % (Auto) % Immature Gran # (Auto) (0.00-0.02) K/uL Neut # (Auto) (1.4-6.5) K/uL Lymph # (Auto) (1.2-3.4) K/uL [place] # (Auto) (0.11-0.59) K/uL Eos # (Auto) (0-0.5) K/uL Baso # (Auto) (0-0.2) K/uL PT (9.0-12.0) Seconds INR (0.9-1.1) APTT (21.0-31.0) Seconds PTT Ratio Sodium (136-145) mmol/L Potassium (3.5-5.1) mmol/L Chloride (98-107) mmol/L Carbon Dioxide (21-32) mmol/L Anion Gap (3-11) BUN (7-18) mg/dl Creatinine (0.6-1.2) mg/dl Est Cr Clr Drug Dosing Est GFR ( Amer) Est GFR (Non-Af Amer) BUN/Creatinine Ratio (10-20) Glucose (70-99) mg/dl Lactate (0.4-2.0) mmol/L Calcium (8.5-10.1) mg/dl Magnesium (1.8-2.4) mg/dl Total Bilirubin (0.2-1) mg/dl AST (15-37) U/L ALT (12-78) U/L Alkaline Phosphatase (45-117) U/L Total Creatine Kinase (26-192) U/L Total Protein (6.4-8.2) gm/dl Albumin (3.4-5.0) gm/dl Globulin (2.5-4.0) gm/dl Albumin/Globulin Ratio (0.9-2) Lipase 193 (73-393) U/L Folate (>5.38) ng/ml Urine Color Urine Appearance (Clear) Urine pH (4.5-7.5) Ur Specific [place] (1.000-1.030) Urine Protein (Negative) Urine Glucose (UA) (Negative) Urine Ketones (Negative) Urine Blood (Negative) Urine Nitrite (Negative) Urine Bilirubin (Negative) Urine Urobilinogen (Negative) Ur Leukocyte Esterase (Negative) Urine WBC (Auto) (0-5) /hpf Urine RBC (Auto) (0-4) /hpf U Hyaline Cast (Auto) (0-5) /lpf U Epithel Cells (Auto) (0-5) /lpf Urine Bacteria (Auto) (Negative) Nasal Screen MRSA (PCR) Negative (Negative) Urine Opiates Screen (Neg) Ur Methadone, Qual (Neg) Urine Barbiturates (Neg) Ur Phencyclidine (PCP) (Neg) U Amphetamin/Meth Scrn (Neg) MDMA (Ecstasy) Screen (Neg) U Benzodiazepines Scrn (Neg) Ur Cocaine Metabolite (Neg) U Marijuana (THC) Screen (Neg) Ethyl Alcohol mg/dL < 3.0 (0-3) mg/dl Influenza Type A (PCR) (Neg) Influenza Type B (PCR) (Neg) 07/07/18 07/07/18 07/07/18 Range/Units 20:56 20:56 21:30 WBC (4.8-10.8) K/uL RBC (4.2-5.4) M/uL Hgb (12.0-16.0) g/dL Hct (37-47) % MCV (80-100) fL MCH (25-34) pg MCHC (32-36) g/dL RDW Std Deviation (36.4-46.3) fL RDW Coeff of Lisa (11.5-14.5) % Plt Count (130-400) K/uL MPV (7.4-10.4) fL Immature Gran % (Auto) % Neut % (Auto) % Lymph % (Auto) % [place] % (Auto) % Eos % (Auto) % Baso % (Auto) % Immature Gran # (Auto) (0.00-0.02) K/uL Neut # (Auto) (1.4-6.5) K/uL Lymph # (Auto) (1.2-3.4) K/uL [place] # (Auto) (0.11-0.59) K/uL Eos # (Auto) (0-0.5) K/uL Baso # (Auto) (0-0.2) K/uL PT (9.0-12.0) Seconds INR (0.9-1.1) APTT (21.0-31.0) Seconds PTT Ratio Sodium (136-145) mmol/L Potassium (3.5-5.1) mmol/L Chloride (98-107) mmol/L Carbon Dioxide (21-32) mmol/L Anion Gap (3-11) BUN (7-18) mg/dl Creatinine (0.6-1.2) mg/dl Est Cr Clr Drug Dosing Est GFR ( Amer) Est GFR (Non-Af Amer) BUN/Creatinine Ratio (10-20) Glucose (70-99) mg/dl Lactate 0.8 (0.4-2.0) mmol/L Calcium (8.5-10.1) mg/dl Magnesium (1.8-2.4) mg/dl Total Bilirubin (0.2-1) mg/dl AST (15-37) U/L ALT (12-78) U/L Alkaline Phosphatase (45-117) U/L Total Creatine Kinase (26-192) U/L Total Protein (6.4-8.2) gm/dl Albumin (3.4-5.0) gm/dl Globulin (2.5-4.0) gm/dl Albumin/Globulin Ratio (0.9-2) Lipase (73-393) U/L Folate 8.09 (>5.38) ng/ml Urine Color Yellow Urine Appearance Cloudy H (Clear) Urine pH 5.5 (4.5-7.5) Ur Specific [place] 1.032 H (1.000-1.030) Urine Protein 1+ H (Negative) Urine Glucose (UA) Negative (Negative) Urine Ketones 2+ H (Negative) Urine Blood 2+ H (Negative) Urine Nitrite Positive H (Negative) Urine Bilirubin Negative (Negative) Urine Urobilinogen Negative (Negative) Ur Leukocyte Esterase Negative (Negative) Urine WBC (Auto) 1-5 (0-5) /hpf Urine RBC (Auto) 5-10 H (0-4) /hpf U Hyaline Cast (Auto) 1-5 (0-5) /lpf U Epithel Cells (Auto) >30 H (0-5) /lpf Urine Bacteria (Auto) Negative (Negative) Nasal Screen MRSA (PCR) (Negative) Urine Opiates Screen (Neg) Ur Methadone, Qual (Neg) Urine Barbiturates (Neg) Ur Phencyclidine (PCP) (Neg) U Amphetamin/Meth Scrn (Neg) MDMA (Ecstasy) Screen (Neg) U Benzodiazepines Scrn (Neg) Ur Cocaine Metabolite (Neg) U Marijuana (THC) Screen (Neg) Ethyl Alcohol mg/dL (0-3) mg/dl Influenza Type A (PCR) (Neg) Influenza Type B (PCR) (Neg) 07/07/18 07/08/18 Range/Units 21:30 04:54 WBC (4.8-10.8) K/uL RBC (4.2-5.4) M/uL Hgb (12.0-16.0) g/dL Hct (37-47) % MCV (80-100) fL MCH (25-34) pg MCHC (32-36) g/dL RDW Std Deviation (36.4-46.3) fL RDW Coeff of Lisa (11.5-14.5) % Plt Count (130-400) K/uL MPV (7.4-10.4) fL Immature Gran % (Auto) % Neut % (Auto) % Lymph % (Auto) % [place] % (Auto) % Eos % (Auto) % Baso % (Auto) % Immature Gran # (Auto) (0.00-0.02) K/uL Neut # (Auto) (1.4-6.5) K/uL Lymph # (Auto) (1.2-3.4) K/uL [place] # (Auto) (0.11-0.59) K/uL Eos # (Auto) (0-0.5) K/uL Baso # (Auto) (0-0.2) K/uL PT (9.0-12.0) Seconds INR (0.9-1.1) APTT (21.0-31.0) Seconds PTT Ratio Sodium 139 (136-145) mmol/L Potassium 4.0 (3.5-5.1) mmol/L Chloride 111 H (98-107) mmol/L Carbon Dioxide 23 (21-32) mmol/L Anion Gap 5.0 (3-11) BUN 10 (7-18) mg/dl Creatinine 0.67 D (0.6-1.2) mg/dl Est Cr Clr Drug Dosing 99.9 Est GFR ( Amer) 120.5 Est GFR (Non-Af Amer) 103.9 BUN/Creatinine Ratio 14.4 (10-20) Glucose 88 (70-99) mg/dl Lactate (0.4-2.0) mmol/L Calcium 7.3 L D (8.5-10.1) mg/dl Magnesium (1.8-2.4) mg/dl Total Bilirubin 0.3 (0.2-1) mg/dl AST 47 H (15-37) U/L ALT 18 (12-78) U/L Alkaline Phosphatase 57 (45-117) U/L Total Creatine Kinase (26-192) U/L Total Protein 5.7 L D (6.4-8.2) gm/dl Albumin 2.8 L (3.4-5.0) gm/dl Globulin 2.9 (2.5-4.0) gm/dl Albumin/Globulin Ratio 1.0 (0.9-2) Lipase (73-393) U/L Folate (>5.38) ng/ml Urine Color Urine Appearance (Clear) Urine pH (4.5-7.5) Ur Specific [place] (1.000-1.030) Urine Protein (Negative) Urine Glucose (UA) (Negative) Urine Ketones (Negative) Urine Blood (Negative) Urine Nitrite (Negative) Urine Bilirubin (Negative) Urine Urobilinogen (Negative) Ur Leukocyte Esterase (Negative) Urine WBC (Auto) (0-5) /hpf Urine RBC (Auto) (0-4) /hpf U Hyaline Cast (Auto) (0-5) /lpf U Epithel Cells (Auto) (0-5) /lpf Urine Bacteria (Auto) (Negative) Nasal Screen MRSA (PCR) (Negative) Urine Opiates Screen Neg (Neg) Ur Methadone, Qual Neg (Neg) Urine Barbiturates Neg (Neg) Ur Phencyclidine (PCP) Neg (Neg) U Amphetamin/Meth Scrn Neg (Neg) MDMA (Ecstasy) Screen Neg (Neg) U Benzodiazepines Scrn Pos H (Neg) Ur Cocaine Metabolite Neg (Neg) U Marijuana (THC) Screen Neg (Neg) Ethyl Alcohol mg/dL (0-3) mg/dl Influenza Type A (PCR) (Neg) Influenza Type B (PCR) (Neg) Diagnostic Findings lumbar puncture-Technically successful fluoroscopic guided lumbar puncture with an inability to collect cerebral spinal fluid due to low opening pressure, presumably related to dehydration.
[2018-07-08] MEDS ORDERED: PROMETHAZINE HCL 25 MG TAB PO PRN (20:06)
[2018-07-08] MEDS ORDERED: CYCLOBENZAPRINE HCL 5 MG TAB PO PRN (20:06)
[2018-07-08] MEDS ORDERED: TEMAZEPAM 15 MG CAPSULE PO PRN (20:06)
[2018-07-08] MEDS: VANCOMYCIN HCL 1,250 MG in SODIUM CHLORIDE 0.9% 250 ML IV SCH (20:09)
[2018-07-08] MEDS ORDERED: TRAZODONE HCL 50 MG TAB PO SCH (21:00)
[2018-07-08] MEDS: levETIRAcetam 500 MG TAB PO SCH (21:55)
[2018-07-08] MEDS: HEPARIN 100 UNIT/ML 5ML FLUSH FLUSH PRN (21:58)
[2018-07-09] MEDS: GABAPENTIN 600 MG TAB PO SCH (03:38)
[2018-07-09 06:31] LABS: BUN Creatinine Ratio 9.3 (10-20); Creatinine Clr Calc Pharmacy 92.9 ml/min; Est GFR (African American) 114.8; Potassium 2.8 mmol/L (3.5-5.1)
[2018-07-09 06:45] LABS: Bilirubin,Total 0.4 mg/dl (0.2-1); Globulin 3.1 gm/dl (2.5-4.0); Total Protein 6.1 gm/dl (6.4-8.2)
[2018-07-09] MEDS: cefTRIAXone SODIUM 2,000 MG in DEXTROSE 5% 50 ML IV SCH (07:31)
[2018-07-09] MEDS: THIAMINE HCL 100 MG TAB PO SCH (07:32)
[2018-07-09] MEDS: ALBUTEROL HFA 8 GM INHALER INH SCH (07:32)
[2018-07-09] MEDS: MONTELUKAST SODIUM 10 MG TABLET PO SCH (07:32)
[2018-07-09] MEDS: FEXOFENADINE HCL 180 MG TAB PO SCH (07:32)
[2018-07-09] MEDS: ENOXAPARIN INJ 40 MG/0.4 ML SYR SQ SCH (07:33)
[2018-07-09] MEDS: levETIRAcetam 500 MG TAB PO SCH (07:33)
[2018-07-09] MEDS: VANCOMYCIN HCL 1,250 MG in SODIUM CHLORIDE 0.9% 250 ML IV SCH (08:13)
[2018-07-09] MEDS: PANTOprazole 40 MG in SYRINGE 0 ML IV SCH (08:13)
[2018-07-09] MEDS ORDERED: FUROSEMIDE 40 MG TAB PO SCH (09:00)
[2018-07-09] MEDS ORDERED: POTASSIUM CHLORIDE 10 MEQ TABCR PO SCH (09:00)
--- NOTE | 2018-07-09 10:30 | Discharge Summary ---
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 History is limited due to delirious state. Patient lives alone. Is partially blind but manages own medications with brightly colored labels that help her identify meds. Was last known to be well on Friday when daughter spoke to patient on the phone. Reportedly developed nausea, vomiting, diarrhea and aching all over on Friday evening. Has not been able to keep medication down for the past two days due to frequent bouts of emesis. Denies any sick contacts or eating unusual foods. Feels confused currently, which is how she feels after seizures. Does not remember any falls or seizures at home. Has been drinking alcohol at home but cannot quanify amount or determine when last drink was--"I thought I was drinking water at home but it tasted bitter so it may have been alcohol". Called EMS earlier today and daughter met her in ED. Per daughter, patient is much more confused than baseline, which is how she acts after seizures. Endorses aching all over body, primarily in neck and along spine. Has a headache and is sensitive to light. Endorsing diffuse abdominal pain. Difficult to obtain remainder of ROS due to confused state. Admission Exam Per Admitting Provider General Appearance: WD/WN, acute distress, + anxious, crying Head: normocephalic, atraumatic Eyes: normal inspection, PERRL, EOMI, + photophobic ENT: hearing grossly normal, pharynx normal (dry mucous membranes) Neck: supple, TTP along spinal processes, limited ROM to R side 2/2 pain, no JVD, no adenopathy Respiratory/Chest: lungs clear to auscultation. No wheezes, rales or rhonci. No respiratory distress or accessory muscle use Cardiovascular: tachycardic, regular rhythm, no murmur, normal peripheral pulses Abdomen/GI: normal bowel sounds, soft, diffuse tenderness to palpation Extremities/Musculoskelatal: normal inspection, no calf tenderness, normal capillary refill, no pedal edema Neurologic/Psych: alert, anxious, tangential speech,easily distracted. Oriented x 3 (not to time), CN II-XII grossly intact. 5/5 strength in all extremities Skin: normal color, warm/dry. Small ecchymoses on bilateral arms and legs Principal Diagnosis Sepsis Nausea, vomiting, and diarrhea Leukocytosis Seizure disorder Anxiety Depression Peptic ulcer disease Dehydration Delirium Gastroparesis Von Willebrand's disease Hypoparathyroidism Blindness Discharge Exam ROS-No Headache, No Visual Changes, No Nausea, No Vomiting, No Fever, No Chills, No Neck Pain or Stiffness, No Chest Pain, No Palpitations, No SOB, No NKOX, No Cough, No Sputum, No Wheezing, No Abdominal Pain, No Diarrhea, No Hematemesis, No Hemoptysis, No Unexpected Weight Loss, No Flank pain, No Melena, No Hematochezia, No Frequency, No Urgency, No Burning, No Hematuria, No Rashes, No Diaphoresis. Appetite is Normal Physical Exam Gen-AAO x 3, NAD, febrile last night Head-NCAT, EOMI, PERRLA, Anicteric Sclera, No Posterior Pharyngeal Erythema Neck-Supple, No JVD, No Thyromegaly, No Masses, No LAD, No Bruits Lungs-Clear to Auscultation Bilaterally, No Rales, No Rhonchi, No Wheezing, No Crepitus Chest-No S4, +S1, +S2, No S3, No Murmurs, No Rubs, No Gallops, No Ectopy Abdomen-Soft, Bowel Sounds Present, Non Tender, Non Distended, No Hepatomegaly, No Splenomegaly, No Palpable Masses, No Rebound, No Rigidity, No Guarding Musculoskeletal-Full Range of Motion Bilaterally, No CVAT Extremities-No Cyanosis, No Clubbing, No Edema Nuero-Cranial Nerves II-XII grossly intact, Motor WNL, DTRs WNL, Strength WNL, Non Focal Psych-Normal Mood Discharge Data Allergies Allergy/AdvReac Type Severity Reaction Status Date / Time latex Allergy Severe RASH Verified 07/07/18 16:38 tobramycin Allergy Severe BLINDNESS Verified 07/07/18 16:38 Penicillins Allergy Intermediate RASH Verified 07/07/18 16:38 Quinolones Allergy Intermediate RASH Verified 07/07/18 16:38 Sulfa (Sulfonamide Allergy Intermediate HIVES Verified 07/07/18 16:38 Antibiotics) Aminoglycosides Allergy Unknown UNKNOWN Verified 07/07/18 16:38 ciprofloxacin Allergy INSIDE OF Verified 07/07/18 16:48 LIPS BURN & PEEL doxycycline Allergy Hives, Verified 07/07/18 16:49 VOMITING iron dextran complex AdvReac Intermediate SHORT OF Verified 07/07/18 16:38 BREATH W/ HEART RACING lactose AdvReac Intermediate NAUSEA, GI Verified 07/07/18 16:38 UPSET citalopram AdvReac RESTLESS Verified 07/07/18 16:48 CONTRASTMEDIA Allergy Mild FACIAL Uncoded 07/07/18 16:38 SWELLING WITH IV CONTRAST Ferric Oxide AdvReac Intermediate HIVES Uncoded 07/07/18 16:38 Consultations 07/07/18 15:59 ED Decision to Admit Stat 07/07/18 20:36 Consult Case Management - Discharge Planning Routine 07/08/18 08:00 Consult Neurology Routine 07/08/18 10:58 Consult Case Management - Discharge Planning Routine Ordered Studies 07/07/18 16:59 FL lumbar puncture diagnostic Stat 07/07/18 17:09 CT abd pelvis wo con Stat Current Diagnoses Sepsis, unspecified organism (07/07/18) Anxiety disorder, unspecified (07/07/18) Epilepsy, unspecified, not intractable, without status epilepticus (07/07/18) Metabolic encephalopathy (07/07/18) Peptic ulcer, site unspecified, unspecified as acute or chronic, without hemorrhage or perforation (07/07/18) Unspecified abdominal pain (07/07/18) Vomiting, unspecified (07/07/18) Diarrhea, unspecified (07/07/18) Other specified health status (07/07/18) Acquired absence of stomach [part of] (07/07/18) Allergies latex Allergy (Severe, Verified 07/07/18 16:38) RASH tobramycin Allergy (Severe, Verified 07/07/18 16:38) BLINDNESS Penicillins Allergy (Intermediate, Verified 07/07/18 16:38) RASH Quinolones Allergy (Intermediate, Verified 07/07/18 16:38) RASH Sulfa (Sulfonamide Antibiotics) Allergy (Intermediate, Verified 07/07/18 16:38) HIVES Aminoglycosides Allergy (Unknown, Verified 07/07/18 16:38) UNKNOWN ciprofloxacin Allergy (Verified 07/07/18 16:48) INSIDE OF LIPS BURN & PEEL doxycycline Allergy (Verified 07/07/18 16:49) Hives, VOMITING iron dextran complex Adverse Reaction (Intermediate, Verified 07/07/18 16:38) SHORT OF BREATH W/ HEART RACING lactose Adverse Reaction (Intermediate, Verified 07/07/18 16:38) NAUSEA, GI UPSET citalopram Adverse Reaction (Verified 07/07/18 16:48) RESTLESS CONTRASTMEDIA Allergy (Mild, Uncoded 07/07/18 16:38) FACIAL SWELLING WITH IV CONTRAST Ferric Oxide Adverse Reaction (Intermediate, Uncoded 07/07/18 16:38) HIVES Height/Weight/Isolation Height 5 ft 7 in Weight 63.2 kg Chemistry 07/07/18 07/08/18 07/09/18 14:20 04:54 05:42 Sodium 135 L 139 138 Potassium 3.9 4.0 2.8 L D Chloride 100 111 H 102 Carbon Dioxide 21 23 30 Anion Gap 14.0 H 5.0 6.0 BUN 10 10 7 Creatinine 0.97 0.67 D 0.72 Glucose 190 H 88 76 Urinalysis 07/07/18 21:30 Urine Color Yellow Urine Appearance Cloudy H Urine pH 5.5 Ur Specific [place] 1.032 H Urine Protein 1+ H Urine Glucose (UA) Negative Urine Ketones 2+ H Urine Blood 2+ H Urine Nitrite Positive H Urine Bilirubin Negative Microbiology 07/07/18 15:21 Blood Blood Culture - Preliminary No growth to date. 07/07/18 14:20 Blood Blood Culture - Preliminary No growth to date. 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 -In the setting of alcohol withdrawal, sepsis and possible post-ictal state -H/o alcohol use, etoh level <3 -Sec to UTI, Cx neg (2) Sepsis: Fever of 38.1, HR of 26, leukocytosis of 13.54, lactate of 3.6, now down to 0.8 -Urine is likely source: CXR without evidence of infiltrate, Flu PCR negative, urine pending -Lumbar puncture attempted by radiology but unsuccessful sample -Cultures are Neg so far, DC on Omnicef and Doxy x 7 days (3) Seizure disorder: History of seizure disorder. Has not taken Keppra in at least 2 days -Possible post-ictal state with delirium -DC on Keppra 1,500. (4) Alcohol use: Cessation d/w patient (5) Vomiting and diarrhea: Resolved (6) Abdominal pain: Persistent symptoms for 3 days, diffuse abdominal pain Resolved (7) Anxiety: Resolved (8) Peptic ulcer disease: PPI (9) History of gastrectomy: H/O total gastrectomy in 2003 due to peptic ulcer disease -Continue PPI (10) DVT prophylaxis: Code status: FULL PCP: Kathia Dispo: Home c HHC today, Safety checks, Med review. Med compliance. Total Time Total Time Spent Total Time Spent (In Minutes): 45 mins Total Time Includes: Examination of the Patient, Discharge Planning, Medication Reconciliation and Communication With Other Providers Discharge Plan Discharge Items Patient Disposition: Home - Home Health Services Reason For Visit: NAUSEA,VOMITING,DIARRHEA Discharge Diagnosis: Sepsis Nausea, vomiting, and diarrhea Leukocytosis Seizure disorder Anxiety Depression Peptic ulcer disease Dehydration Delirium Gastroparesis Von Willebrand's disease Hypoparathyroidism Blindness Condition: Good Discharge Goals: Improve function Activity: Resume your previous activity Lifting: Gradually increase as tolerated Bathing: No limitations Sexual Activity: When tolerated Exercise/Sports: None Weightbearing: Left weightbearing and Right weightbearing Non-emergency contact: Primary Care Provider and Neurologist Call non-emergency contact if: you have any medication questions Follow-up/Referrals: Jaspal Bae [Primary Care Provider] - Caitlin Hurst MD [Physician] - (2-3 weeks) Diet: Heart Healthy Addtl Provider Instructions: Routine follow up Prescriptions: New thiamine HCl (vitamin B1) [Vitamin B-1] 100 mg Tablet 100 mg PO QAM Qty: 20 RF: 0 cefuroxime axetil 500 mg tablet 500 mg PO BID 7 Days Qty: 14 RF: 0 Continued trazodone 50 mg Tablet 50 mg PO HS RF: 0 levetiracetam [Keppra] 500 mg tablet 1,500 mg PO Q12 RF: 0 lorazepam 1 mg tablet 1 mg PO Q6H PRN (Reason: Anxiety) RF: 0 eletriptan [Relpax] 40 mg Tablet 40 mg PO UD PRN (Reason: Migraine Headache) RF: 0 zoledronic hocu-litxlmoy-fomms [Reclast] 5 mg/100 mL Piggyback 5 mg IV YEARLY RF: 0 albuterol sulfate 90 mcg/actuation HFA aerosol inhaler 2 puff Inhalation QID RF: 0 cyclobenzaprine 5 mg tablet 5 mg PO TID PRN (Reason: Muscle Spasm) RF: 0 fexofenadine 180 mg Tablet 180 mg PO DAILY RF: 0 furosemide 20 mg tablet 40 mg PO DAILY RF: 0 pantoprazole 40 mg tablet,delayed release (DR/EC) 40 mg PO BID RF: 0 promethazine 25 mg tablet 25 mg PO Q8 PRN (Reason: Nausea And Vomiting) RF: 0 montelukast 10 mg tablet 10 mg PO DAILY RF: 0 potassium chloride 10 mEq tablet,ER particles/crystals 20 meq PO DAILY RF: 0 gabapentin 300 mg capsule 400 mg PO TID RF: 0 Discontinued temazepam 30 mg capsule 30 mg PO HS PRN (Reason: Insomnia) RF: 0 Visit Report Forms: Smoking Cessation Stand-Alone Forms: [facility] Discharge Orders: Discharge Order (Routine); Ordered 07/09/18 Ordered By: Beau Ernandez Admission Data Admit Date/Time: 07/07/18 17:09 Attending Provider: Beau Ernandez Admit Provider: Olivia Sims Primary Care Provider: Jaspal Bae Other Providers: Olivia Sims ; Caitlin Hurst Service: Medical
[2018-07-09] MEDS: HEPARIN 100 UNIT/ML 5ML FLUSH FLUSH PRN ×2 (10:44→11:22)
[2018-07-09] MEDS ORDERED: VANCOMYCIN TROUGH ONE (19:30)
[2018-07-09] MEDS ORDERED: GABAPENTIN 600 MG TAB PO SCH (22:00)
[2018-07-10 13:00] LABS: 7-Aminoclonaz, Confirm NEGATIVE NG/ML (CUTOFF=25); Hydro-Alp Ur, GC/MS NEGATIVE NG/ML (CUTOFF=25); Hydroxyethylflurazepam, Conf NEGATIVE NG/ML (CUTOFF=50); Hydroxytriazolam NEGATIVE NG/ML (CUTOFF=50); Lorazepam, Ur GC/MS 1620 NG/ML (CUTOFF=50); Nordiazepam, Confirm NEGATIVE NG/ML (CUTOFF=50); Oxazepam Ur, GC/MS 1020 NG/ML (CUTOFF=50); Temazepam, Confirm >2000 NG/ML (CUTOFF=50)
[2018-07-11] MEDS ORDERED: GABAPENTIN 600 MG TAB PO SCH (10:00)
== END 2018-07-09 11:35 | disposition home or self-care (01) | DRG 871 ==
LOC: ED 14:02 → 2E 17:08 → SUATTDRO 17:08 → 2E 19:46 → 2N 07-08 13:28

== ENCOUNTER 2018-09-24 22:57 | Inpatient (IN) ==
[2018-09-24] MEDS ORDERED: ONDANSETRON 4 MG OD TAB ONE (23:08)
[2018-09-24] MEDS ORDERED: SODIUM CHLORIDE 0.9% 1000ML 1,000 ML IV SCH (23:15)
[2018-09-24] MEDS ORDERED: cefTRIAXone SODIUM 1,000 MG/50 ML BAG IV STA (23:18)
[2018-09-24 23:56] LABS: Eosinophils # (auto) 0.13 K/uL (0-0.5); Eosinophils % (auto) 1.5 %; Hematocrit (blood only) 31.7 % (37-47); Hemoglobin 10.9 g/dL (12.0-16.0); Immature Granulocytes # (auto) 0.04 K/uL (0.00-0.02); Immature Granulocytes % (auto) 0.5 %; Lymphocytes # (auto) 0.11 K/uL (1.2-3.4); Lymphocytes % (auto) 1.3 %; Mean Corpuscular Hgb Conc 34.4 g/dL (32-36); Mean Corpuscular Volume 88.8 fL (80-100); Mean Platelet Volume 10.2 fL (7.4-10.4); Monocytes % (auto) 1.2 %; Neutrophils # (auto) 8.16 K/uL (1.4-6.5); Neutrophils % (auto) 95.5 %; Platelet Count 121 K/uL (130-400); RDW Coefficient of Variation 18.9 % (11.5-14.5); RDW Standard Deviation 59.4 fL (36.4-46.3); Red Blood Count 3.57 M/uL (4.2-5.4); White Blood Count 8.54 K/uL (4.8-10.8)
[2018-09-25] MEDS ORDERED: ACETAMINOPHEN 1,000 MG/100 ML VIAL IV STA (00:08)
[2018-09-25 00:11] LABS: Appearance Urine Clear (Clear); Bacteria Urine Automated Negative (Negative); Blood Urine Negative (Negative); Color Urine Dark Yellow; Glucose Urine UA Negative (Negative); Leukocyte Esterase Urine Trace (Negative); Nitrite Urine Negative (Negative); Protein Urine Negative (Negative); RBC Urine Automated 0-4 /hpf (0-4); Specific Gravity Urine 1.016 (1.000-1.030); Urobilinogen Urine Negative (Negative); pH Urine 6.5 (4.5-7.5)
[2018-09-25 00:13] LABS: Alanine Aminotransferase 20 U/L (12-78); Albumin Level 2.7 gm/dl (3.4-5.0); Aspartate Aminotransferase 31 U/L (15-37); BUN Creatinine Ratio 7.2 (10-20); Blood Urea Nitrogen 5 mg/dl (7-18); Calcium 7.6 mg/dl (8.5-10.1); Carbon Dioxide 21 mmol/L (21-32); Chloride 96 mmol/L (98-107); Creatinine Clr Calc Pharmacy 96.5 ml/min; Est GFR (African American) 120.2; Est GFR (Non-African American) 103.7; Glucose 88 mg/dl (70-99); Potassium 3.5 mmol/L (3.5-5.1); Sodium 127 mmol/L (136-145)
[2018-09-25 00:16] LABS: Albumin Globulin Ratio 0.9 (0.9-2); Alkaline Phosphatase 81 U/L (45-117); Bilirubin,Total 0.6 mg/dl (0.2-1); Globulin 3.1 gm/dl (2.5-4.0); Total Protein 5.8 gm/dl (6.4-8.2)
[2018-09-25 00:17] LABS: INR 1.1 (0.9-1.1); Partial Thromboplastin Ratio 2.5; Prothrombin Time 10.9 Seconds (9.0-12.0)
[2018-09-25 00:21] LABS: Partial Thromboplastin Time 67.6 Seconds (21.0-31.0)
[2018-09-25 00:22] LABS: Bilirubin Urine Negative (Negative); Ictotest Urine Negative (Negative); Ketones Urine 4+ (Negative)
[2018-09-25] MEDS ORDERED: LACTATED RINGER'S 1,000 ML IV ONE ×2 (00:30→01:52)
[2018-09-25] MEDS ORDERED: KETOROLAC TROMETHAMINE 15 MG/ML VIAL IV STA (00:58)
[2018-09-25] MEDS ORDERED: FAMOTIDINE 20MG/5ML IV PUSH IV STA (00:58)
[2018-09-25] MEDS ORDERED: fentaNYL citrate 100 MCG/2 ML VIAL IV STA (00:58)
[2018-09-25 01:21] LABS: Troponin I < 0.015 ng/ml (0-0.045)
[2018-09-25] MEDS ORDERED: DiphenhydrAMINE HCL 50 MG/ML VIAL IV STA (01:26)
--- NOTE | 2018-09-25 01:52 | Emergency Department Note ---
Entered by Beto John acting as a scribe for History of Present Illness General Chief complaint: Fever Stated complaint: ILL/VOMITING/CHEST PAIN Time Seen by Provider: 09/24/18 23:03 Source: patient History of Present Illness Onset (ago): day(s) (yesterday) Location: abdomen Pain Consistency: + other (persistent) Quality: + other (vomiting) Associated symptoms: + other (Positive for fever, hot flashes, urinary burning, urine with a strong odor, a decreased appetite, abdominal pain, back pain, and chest pain.) The patient is a 48 year old female who presents to the emergency department with complaints of persistent vomiting beginning a few days ago. The patient states that she has been having a fever, hot flashes, and vomiting for the last few days. She believes that she has a UTI as she has also been having urinary burning as well as urine with a strong odor. Patient was seen by her doctor yesterday and started on Macrobid for UTI. No prior history of resistant UTIs to her knowledge. She also complains of a decreased appetite, abdominal pain, back pain, and chest pain. Today then patient began with persistent nausea/vomiting and eventual abdominal pain. Patient states she was unable to even tolerate sips of water. She reports that she has not had a bowel movement in days. The patient states that she has a history of a gastrectomy due to peptic ulcer disease, cholecystectomy, and a hysterectomy. She notes that she also has a history of Von Willebrand's disease and UTIs. She denies any known history of kidney infections. No recent change in diet or medications. No recent trauma or change in activity. Home Medications Home Medications Medication Instructions Recorded Confirmed Type albuterol sulfate 2 puff INHALATION QID PRN 01/29/18 09/25/18 History cyclobenzaprine 5 mg PO TID PRN 01/29/18 09/25/18 History fexofenadine 180 mg PO DAILY 01/29/18 09/25/18 History furosemide 40 mg PO DAILY PRN 01/29/18 09/25/18 History gabapentin 400 mg PO TID 01/29/18 09/25/18 History montelukast 10 mg PO DAILY PRN 01/29/18 09/25/18 History pantoprazole 40 mg PO BID 01/29/18 09/25/18 History potassium chloride 20 meq PO DAILY PRN 01/29/18 09/25/18 History promethazine 25 mg PO Q8 PRN 01/29/18 09/25/18 History eletriptan [Relpax] 40 mg PO UD PRN 07/07/18 09/25/18 History levetiracetam [Keppra] 1,500 mg PO Q12 07/07/18 09/25/18 History lorazepam 1 mg PO Q6H PRN 07/07/18 09/25/18 History trazodone 50 mg PO HS PRN 07/07/18 09/25/18 History zoledronic rlqe-wuyqwzsb-wmmwg 5 mg IV YEARLY 07/07/18 09/25/18 History [Reclast] thiamine HCl (vitamin B1) [Vitamin 100 mg PO QAM #20 tab 07/09/18 09/25/18 Rx B-1] Allergies Allergy/AdvReac Type Severity Reaction Status Date / Time latex Allergy Severe RASH Verified 09/25/18 01:44 tobramycin Allergy Severe BLINDNESS Verified 09/25/18 01:44 ceftriaxone Allergy Intermediate Rash Verified 09/25/18 02:51 Penicillins Allergy Intermediate RASH Verified 09/25/18 01:44 Quinolones Allergy Intermediate RASH Verified 09/25/18 01:44 Sulfa (Sulfonamide Allergy Intermediate HIVES Verified 09/25/18 01:44 Antibiotics) Aminoglycosides Allergy Unknown UNKNOWN Verified 09/25/18 01:44 ciprofloxacin Allergy INSIDE OF Verified 09/25/18 01:44 LIPS BURN & PEEL doxycycline Allergy Hives, Verified 09/25/18 01:44 VOMITING iron dextran complex AdvReac Intermediate SHORT OF Verified 09/25/18 01:44 BREATH W/ HEART RACING lactose AdvReac Intermediate NAUSEA, GI Verified 09/25/18 01:44 UPSET citalopram AdvReac RESTLESS Verified 09/25/18 01:44 CONTRASTMEDIA Allergy Mild FACIAL Uncoded 09/25/18 01:44 SWELLING WITH IV CONTRAST Ferric Oxide AdvReac Intermediate HIVES Uncoded 09/25/18 01:44 Past Med/Surg History Medical History Seizure disorder (Chronic) Metabolic encephalopathy (Acute) Abdominal pain (Acute) Alcohol use (Chronic) Delirium (Acute) Sepsis (Acute) Dehydration (Acute) Vomiting and diarrhea (Acute) DVT prophylaxis (Chronic) Anxiety (Chronic) Depression (Chronic) Peptic ulcer disease (Resolved) Von Willebrand disease (Chronic) Hypoparathyroidism (Chronic) Gastroparesis (Chronic) Blindness (Chronic) Surgical History History of gastrectomy (Chronic) History of cholecystectomy (Resolved) Social History Preferred Language: E[place] Communication Ability: Effective Beliefs That Will Affect Care: None marital status: Current Living Situation: Alone current occupational status: disabled Feels Safe at Home: Yes and Hesitant to Answer Smoking Status: Never smoker Hx Alcohol Use: Yes Alcohol type: other Hx Substance Use: No Review of Systems See HPI for pertinent positives & negatives. and A total of 10 systems reviewed and were otherwise negative Physical Exam Vital Signs Vital Signs - 24 hr 09/24/18 23:09 09/24/18 23:10 09/25/18 00:34 Temperature 39.6 C H 39.2 C H Temperature Source Oral Oral Sepsis Recent Fever Within 48 Hours Yes Sepsis Action Taken by Nursing Physician Notified Pulse Rate 144 H Pulse Rate [Forehead] 135 H Respiratory Rate 22 20 Respiratory Effort / Characteristics Non-Labored Spontaneous Non-Labored Spontaneous Respiratory Depth Normal Normal Respiratory Pattern Regular Regular Blood Pressure 136/78 Blood Pressure [Right Arm] 114/75 Blood Pressure Mean 97 Blood Pressure Mean [Right Arm] 88 Blood Pressure Position Lying Blood Pressure Position [Right Arm] Sitting Pulse Oximetry 99 100 99 Oxygen Delivery Method Room Air Room Air Room Air 09/25/18 01:22 09/25/18 02:03 09/25/18 02:04 Temperature 37.3 C 37.3 C Temperature Source Oral Oral Sepsis Recent Fever Within 48 Hours Sepsis Action Taken by Nursing Pulse Rate Pulse Rate [Forehead] 132 H 127 H Respiratory Rate 20 18 Respiratory Effort / Characteristics Non-Labored Spontaneous Respiratory Depth Normal Respiratory Pattern Regular Blood Pressure Blood Pressure [Right Arm] 98/72 L 101/76 Blood Pressure Mean Blood Pressure Mean [Right Arm] 80 84 Blood Pressure Position Blood Pressure Position [Right Arm] Lying Pulse Oximetry 97 100 Oxygen Delivery Method Room Air GENERAL: alert, ill appearing, well nourished, in mild distress, non-toxic FACE: Small contusion noted to submental area of the face. Nontender, no facial bone tenderness. EYE EXAM: normal conjunctiva, PERRL and EOM's grossly intact OROPHARYNX: no exudate, no erythema, lips, buccal mucosa, and tongue normal and mucous membranes are dry NECK: supple, no nuchal rigidity, no adenopathy, non-tender LUNGS: Clear to auscultation. Normal chest wall mechanics, no w/r/r HEART: no murmurs, S1 normal and S2 normal CHEST: Port in the anterior chest wall. ABDOMEN: abdomen soft, normo-active bowel sounds, no masses, no rebound or guarding, generalized discomfort with palpation. BACK: Back is symmetrical on inspection and there is no deformity, no midline tenderness, no CVA tenderness. SKIN: no rashes and no bruising, several well healed scars from placement of central lines noted on chest wall. No petechiae. UPPER EXTREMITIES: upper extremities are grossly normal. Contusion noted to dorsum of left hand which patient states is from getting it caught in a barn door. LOWER EXTREMITIES: No pitting edema. FROM, nml pulses b/l. NEURO EXAM: Normal sensorium, cranial nerves II-XII grossly intact, normal speech, no gross weakness of arms, no gross weakness of legs. Course 2305: The patient was evaluated in room B11. A complete history and physical exam was performed. 0125: I reevaluated and updated the patient. She has patchy erythema likely due to a reaction to the Rocephin. 0228: I rechecked the patient. Heart rate is down to the 120s. Erythema is improved since administration of Benadryl. She feels better but is still nauseous. She states that Phenergan has worked better for her in the past. 0232: Upon reevaluation, the patient is stable. I discussed the findings and the treatment plan with the patient. She expresses agreement and understanding. [facility] He will be evaluated for further management. Consultations Consultation #1: I [facility] the patient's [facility] He will evaluate the patient for further management. Time: 02:32 Administered Medications Discontinued Medications Diphenhydramine HCl (Benadryl) 25 mg IV NOW STA Stop: 09/25/18 01:27 Last Admin: 09/25/18 01:34 Dose: 25 mg Documented by: [id number] Famotidine (Pepcid 20mg Iv Push) 20 mg IV ONE STA Stop: 09/25/18 00:59 Last Admin: 09/25/18 01:13 Dose: 20 mg Documented by: [id number] Fentanyl Citrate (Fentanyl Citrate) 50 mcg IV NOW STA Stop: 09/25/18 00:59 Last Admin: 09/25/18 01:13 Dose: 50 mcg Documented by: [id number] Sodium Chloride (Nss 1000ml) 1,000 mls @ 999 mls/hr IV .Q1H1M DENIS Stop: 09/24/18 23:30 Last Infusion: 09/25/18 01:09 Dose: 0 mls/hr Documented by: [id number] Admin: 09/25/18 00:05 Dose: 999 mls/hr Documented by: [id number] Ceftriaxone Sodium (Rocephin) 1,000 mg in 50 mls @ 100 mls/hr IV NOW STA Stop: 09/24/18 23:47 Last Infusion: 09/25/18 01:09 Dose: 0 mls/hr Documented by: [id number] Admin: 09/25/18 00:29 Dose: 100 mls/hr Documented by: [id number] Acetaminophen (Ofirmev) 1,000 mg in 100 mls @ 400 mls/hr IV NOW STA Stop: 09/25/18 00:22 Last Infusion: 09/25/18 00:26 Dose: 0 mls/hr Documented by: [id number] Admin: 09/25/18 00:12 Dose: 400 mls/hr Documented by: [id number] Lactated Ringer's (Lr) 1,000 mls @ 999 mls/hr IV .Q1H1M ONE Stop: 09/25/18 01:30 Last Infusion: 09/25/18 02:09 Dose: 0 mls/hr Documented by: [id number] Admin: 09/25/18 01:14 Dose: 999 mls/hr Documented by: [id number] Lactated Ringer's (Lr) 1,000 mls @ 999 mls/hr IV .Q1H1M ONE Stop: 09/25/18 02:52 Last Admin: 09/25/18 02:42 Dose: 999 mls/hr Documented by: [id number] Promethazine HCl (Phenergan) 12.5 mg in 50.5 mls @ 202 mls/hr IV NOW STA Stop: 09/25/18 02:42 Last Infusion: 09/25/18 03:06 Dose: 0 mls/hr Documented by: [id number] Admin: 09/25/18 02:42 Dose: 202 mls/hr Documented by: [id number] Ketorolac Tromethamine (Toradol) 15 mg IV NOW STA Stop: 09/25/18 00:59 Last Admin: 09/25/18 01:13 Dose: 15 mg Documented by: [id number] Ondansetron HCl (Zofran Odt) Confirm Administered Dose 4 mg .ROUTE .STK-MED ONE Stop: 09/24/18 23:09 Last Admin: 09/25/18 01:26 Dose: Not Given Documented by: [id number] Medical Decision Making Differential Diagnosis Differential diagnosis: Etiologies such as viral syndrome, otitis, pharyngitis, pneumonia, influenza, meningitis, urinary tract infection, septic arthritis, soft tissue infectious process, intra-abdominal process, sepsis, bacteremia, gastroenteritis, food borne illness, infections, appendicitis, diverticulitis, inflammatory bowel disease, obstruction, GI bleed, biliary pathology, cardiac process, intracranial process, as well as others were entertained. Medical Records Attestation: I reviewed the patient's medical records. Home Medications Current Medication List: was personally reviewed by me Laboratory Data Attestation: I reviewed the patient's lab results. Result diagrams: 09/24/18 23:45 09/24/18 23:45 Lab Results 09/24/18 09/24/18 09/24/18 Range/Units 23:45 23:45 23:45 WBC 8.54 (4.8-10.8) K/uL RBC 3.57 L (4.2-5.4) M/uL Hgb 10.9 L (12.0-16.0) g/dL Hct 31.7 L (37-47) % MCV 88.8 (80-100) fL MCH 30.5 (25-34) pg MCHC 34.4 (32-36) g/dL RDW Std Deviation 59.4 H (36.4-46.3) fL RDW Coeff of Lisa 18.9 H (11.5-14.5) % Plt Count 121 L (130-400) K/uL MPV 10.2 (7.4-10.4) fL Immature Gran % (Auto) 0.5 % Neut % (Auto) 95.5 % Lymph % (Auto) 1.3 % Mckenzie % (Auto) 1.2 % Eos % (Auto) 1.5 % Baso % (Auto) 0.0 % Immature Gran # (Auto) 0.04 H (0.00-0.02) K/uL Neut # (Auto) 8.16 H (1.4-6.5) K/uL Lymph # (Auto) 0.11 L (1.2-3.4) K/uL Mckenzie # (Auto) 0.10 L (0.11-0.59) K/uL Eos # (Auto) 0.13 (0-0.5) K/uL Baso # (Auto) 0.00 (0-0.2) K/uL PT 10.9 (9.0-12.0) Seconds INR 1.1 (0.9-1.1) APTT 67.6 H* (21.0-31.0) Seconds PTT Ratio 2.5 Sodium (136-145) mmol/L Potassium (3.5-5.1) mmol/L Chloride (98-107) mmol/L Carbon Dioxide (21-32) mmol/L Anion Gap (3-11) BUN (7-18) mg/dl Creatinine (0.6-1.2) mg/dl Est Cr Clr Drug Dosing ml/min Est GFR ( Amer) Est GFR (Non-Af Amer) BUN/Creatinine Ratio (10-20) Glucose (70-99) mg/dl Osmolality (280-300) mOsm/kg Lactate (0.4-2.0) mmol/L Calcium (8.5-10.1) mg/dl Magnesium (1.8-2.4) mg/dl Total Bilirubin (0.2-1) mg/dl AST (15-37) U/L ALT (12-78) U/L Alkaline Phosphatase (45-117) U/L Troponin I (0-0.045) ng/ml Total Protein (6.4-8.2) gm/dl Albumin (3.4-5.0) gm/dl Globulin (2.5-4.0) gm/dl Albumin/Globulin Ratio (0.9-2) Procalcitonin 0.56 H (0-0.5) ng/ml TSH (0.300-4.500) uIu/ml Urine Color Urine Appearance (Clear) Urine pH (4.5-7.5) Ur Specific [place] (1.000-1.030) Urine Protein (Negative) Urine Glucose (UA) (Negative) Urine Ketones (Negative) Urine Blood (Negative) Urine Nitrite (Negative) Urine Bilirubin (Negative) Urine Urobilinogen (Negative) Ur Leukocyte Esterase (Negative) Urine WBC (Auto) (0-5) /hpf Urine RBC (Auto) (0-4) /hpf U Hyaline Cast (Auto) (0-5) /lpf U Epithel Cells (Auto) (0-5) /lpf Urine Bacteria (Auto) (Negative) Urine Osmolality (500-800) mOsm/kg Ur Random Sodium mmol/L 09/24/18 09/24/18 09/24/18 Range/Units 23:45 23:45 23:50 WBC (4.8-10.8) K/uL RBC (4.2-5.4) M/uL Hgb (12.0-16.0) g/dL Hct (37-47) % MCV (80-100) fL MCH (25-34) pg MCHC (32-36) g/dL RDW Std Deviation (36.4-46.3) fL RDW Coeff of Lisa (11.5-14.5) % Plt Count (130-400) K/uL MPV (7.4-10.4) fL Immature Gran % (Auto) % Neut % (Auto) % Lymph % (Auto) % Mckenzie % (Auto) % Eos % (Auto) % Baso % (Auto) % Immature Gran # (Auto) (0.00-0.02) K/uL Neut # (Auto) (1.4-6.5) K/uL Lymph # (Auto) (1.2-3.4) K/uL Mckenzie # (Auto) (0.11-0.59) K/uL Eos # (Auto) (0-0.5) K/uL Baso # (Auto) (0-0.2) K/uL PT (9.0-12.0) Seconds INR (0.9-1.1) APTT (21.0-31.0) Seconds PTT Ratio Sodium 127 L (136-145) mmol/L Potassium 3.5 (3.5-5.1) mmol/L Chloride 96 L (98-107) mmol/L Carbon Dioxide 21 (21-32) mmol/L Anion Gap 10.0 (3-11) BUN 5 L (7-18) mg/dl Creatinine 0.66 (0.6-1.2) mg/dl Est Cr Clr Drug Dosing 96.5 ml/min Est GFR ( Amer) 120.2 Est GFR (Non-Af Amer) 103.7 BUN/Creatinine Ratio 7.2 L (10-20) Glucose 88 (70-99) mg/dl Osmolality 256 L (280-300) mOsm/kg Lactate 0.8 (0.4-2.0) mmol/L Calcium 7.6 L (8.5-10.1) mg/dl Magnesium 1.6 L (1.8-2.4) mg/dl Total Bilirubin 0.6 (0.2-1) mg/dl AST 31 (15-37) U/L ALT 20 (12-78) U/L Alkaline Phosphatase 81 (45-117) U/L Troponin I < 0.015 (0-0.045) ng/ml Total Protein 5.8 L (6.4-8.2) gm/dl Albumin 2.7 L (3.4-5.0) gm/dl Globulin 3.1 (2.5-4.0) gm/dl Albumin/Globulin Ratio 0.9 (0.9-2) Procalcitonin (0-0.5) ng/ml TSH 0.456 (0.300-4.500) uIu/ml Urine Color Urine Appearance (Clear) Urine pH (4.5-7.5) Ur Specific [place] (1.000-1.030) Urine Protein (Negative) Urine Glucose (UA) (Negative) Urine Ketones (Negative) Urine Blood (Negative) Urine Nitrite (Negative) Urine Bilirubin (Negative) Urine Urobilinogen (Negative) Ur Leukocyte Esterase (Negative) Urine WBC (Auto) (0-5) /hpf Urine RBC (Auto) (0-4) /hpf U Hyaline Cast (Auto) (0-5) /lpf U Epithel Cells (Auto) (0-5) /lpf Urine Bacteria (Auto) (Negative) Urine Osmolality (500-800) mOsm/kg Ur Random Sodium mmol/L 09/24/18 09/24/18 09/24/18 Range/Units 23:52 23:52 23:52 WBC (4.8-10.8) K/uL RBC (4.2-5.4) M/uL Hgb (12.0-16.0) g/dL Hct (37-47) % MCV (80-100) fL MCH (25-34) pg MCHC (32-36) g/dL RDW Std Deviation (36.4-46.3) fL RDW Coeff of Lisa (11.5-14.5) % Plt Count (130-400) K/uL MPV (7.4-10.4) fL Immature Gran % (Auto) % Neut % (Auto) % Lymph % (Auto) % Mckenzie % (Auto) % Eos % (Auto) % Baso % (Auto) % Immature Gran # (Auto) (0.00-0.02) K/uL Neut # (Auto) (1.4-6.5) K/uL Lymph # (Auto) (1.2-3.4) K/uL Mckenzie # (Auto) (0.11-0.59) K/uL Eos # (Auto) (0-0.5) K/uL Baso # (Auto) (0-0.2) K/uL PT (9.0-12.0) Seconds INR (0.9-1.1) APTT (21.0-31.0) Seconds PTT Ratio Sodium (136-145) mmol/L Potassium (3.5-5.1) mmol/L Chloride (98-107) mmol/L Carbon Dioxide (21-32) mmol/L Anion Gap (3-11) BUN (7-18) mg/dl Creatinine (0.6-1.2) mg/dl Est Cr Clr Drug Dosing ml/min Est GFR ( Amer) Est GFR (Non-Af Amer) BUN/Creatinine Ratio (10-20) Glucose (70-99) mg/dl Osmolality (280-300) mOsm/kg Lactate (0.4-2.0) mmol/L Calcium (8.5-10.1) mg/dl Magnesium (1.8-2.4) mg/dl Total Bilirubin (0.2-1) mg/dl AST (15-37) U/L ALT (12-78) U/L Alkaline Phosphatase (45-117) U/L Troponin I (0-0.045) ng/ml Total Protein (6.4-8.2) gm/dl Albumin (3.4-5.0) gm/dl Globulin (2.5-4.0) gm/dl Albumin/Globulin Ratio (0.9-2) Procalcitonin (0-0.5) ng/ml TSH (0.300-4.500) uIu/ml Urine Color Dark Yellow Urine Appearance Clear (Clear) Urine pH 6.5 (4.5-7.5) Ur Specific [place] 1.016 (1.000-1.030) Urine Protein Negative (Negative) Urine Glucose (UA) Negative (Negative) Urine Ketones 4+ H (Negative) Urine Blood Negative (Negative) Urine Nitrite Negative (Negative) Urine Bilirubin Negative (Negative) Urine Urobilinogen Negative (Negative) Ur Leukocyte Esterase Trace H (Negative) Urine WBC (Auto) 1-5 (0-5) /hpf Urine RBC (Auto) 0-4 (0-4) /hpf U Hyaline Cast (Auto) 1-5 (0-5) /lpf U Epithel Cells (Auto) 10-20 H (0-5) /lpf Urine Bacteria (Auto) Negative (Negative) Urine Osmolality 294 L (500-800) mOsm/kg Ur Random Sodium 25 mmol/L Imaging Data Attestation: I personally reviewed and interpreted this imaging study as follows: My Impression: 1 VIEW CHEST X-RAY: No cardiomegaly. No effusions. Port noted to the right chest. No wide mediastinum. No focal consolidation. No acute pulmonary edema. Radiologist's Impression: Radiology results as stated below per my review and the radiologist's interpretation: CT ABDOMEN & PELVIS Without Contrast: Normal appendix. Bilateral pleural effusions. Small pericardial effusion. No bowel obstruction or wall thickening. Radiologist: Shakir Mcclain MD. ECG Data Attestation: I personally reviewed and interpreted this ECG as follows: Indication: abdominal pain Rate (beats per minute): 139 Rhythm: sinus tachycardia Findings: no PAC, no PVC and no acute ischemic change Comparison ECG Date: from (07/07/2018) Change: no significant change Additional Comments: Normal axis, normal intervals, low voltage. EKG #2: Sinus rhythm, 71, normal axis, normal intervals, no ectopy, inverted T wave in lead 3, no other ischemic changes. Blood Pressure Blood Pressure Findings: Normal blood pressure Blood Pressure Disposition: did not require urgent referral MDM Narrative Patient here ill-appearing initially and a sepsis work-up was initiated. Patient's port was accessed for blood work and administration of IV fluids. Patient was not hypotensive at any time however was given several liters of IV fluid and did get 30 mL/KG of IV fluids as part of ongoing resuscitation for likely volume loss secondary to vomiting and poor intake. Given the recent diagnosis of a UTI, I suspect patient likely had worsening symptoms or possible early pyelonephritis which are now manifesting as possible sepsis. Patient with no prior history of renal stone and no other obstructive uropathy noted on CT. Given patient's significant GI history and multiple prior surgeries, CT also ordered to rule out any additional GI pathology such as a bowel obstruction. CT was otherwise reassuring. Patient's renal function intact. Patient found to be hyponatremic, possibly due to decreased intake and medications. I did review EMR to look for prior urine cultures and only one was seen. Patient does have multiple allergies to several antibiotics, so initially IV Rocephin was chosen based on her allergy list. Unfortunately patient had a reaction to this and this will need to be added to her allergy list also. Patient denies any prior history of drug-resistant UTIs or sepsis related to urinary tract infection. Blood and urine cultures have been drawn and sent prior to initiation of IV antibiotics. Patient's lactic acid is reassuring, however procalcitonin was mildly elevated which would be more suggestive of sepsis also. With additional volume resuscitation, patient's heart rate did improve. Temperature also improved after administration of antipyretics. Patient was still nauseated following administration of Zofran and requested Phenergan which I feel is reasonable. Due to concern for her condition and complex history, as well as need for ongoing treatment and management[facility] was made aware of all results and was in agreement with plan. Impression & Plan Sepsis, Abdominal pain, Dehydration, UTI (urinary tract infection), Vomiting, Hyponatremia, Anemia Critical Care Time I have personally spent 40 minutes of critical care time in the direct management of this patient. This includes bedside care, interpretation of diagnostic studies, and testing, discussion with consultants, patient, and family members, and other required patient management activities. This 40 minut es is in excess of all separately billable procedures. Critical Care Time: Yes Total Critical Care Time: 40 Discharge Plan Visit Data Chief Complaint: Fever Stated Complaint: ILL/VOMITING/CHEST PAIN Other Complaint: Chest Pain Vomiting ED Provider: Manju Aviles Discharge Problem: Sepsis, Abdominal pain, Dehydration, UTI (urinary tract infection), Vomiting, Hyponatremia, Anemia Patient Disposition: Being Evaluated by Hospitalist Forms Stand Alone Forms: Call Back Authorization, [facility] Prescriptions Prescriptions: No Action trazodone 50 mg Tablet 50 mg PO HS PRN (Reason: Sleep) RF: 0 levetiracetam [Keppra] 500 mg tablet 1,500 mg PO Q12 RF: 0 lorazepam 1 mg tablet 1 mg PO Q6H PRN (Reason: Anxiety) RF: 0 eletriptan [Relpax] 40 mg Tablet 40 mg PO UD PRN (Reason: Migraine Headache) RF: 0 zoledronic hjbl-kzsemonw-hwkio [Reclast] 5 mg/100 mL Piggyback 5 mg IV YEARLY RF: 0 thiamine HCl (vitamin B1) [Vitamin B-1] 100 mg Tablet 100 mg PO QAM Qty: 20 RF: 0 albuterol sulfate 90 mcg/actuation HFA aerosol inhaler 2 puff Inhalation QID PRN (Reason: Shortness Of Breath) RF: 0 cyclobenzaprine 5 mg tablet 5 mg PO TID PRN (Reason: Muscle Spasm) RF: 0 fexofenadine 180 mg Tablet 180 mg PO DAILY RF: 0 furosemide 20 mg tablet 40 mg PO DAILY PRN (Reason: Edema) RF: 0 pantoprazole 40 mg tablet,delayed release (DR/EC) 40 mg PO BID RF: 0 promethazine 25 mg tablet 25 mg PO Q8 PRN (Reason: Nausea And Vomiting) RF: 0 montelukast 10 mg tablet 10 mg PO DAILY PRN (Reason: Allergy Symptoms) RF: 0 potassium chloride 10 mEq tablet,ER particles/crystals 20 meq PO DAILY PRN (Reason: when taking lasix) RF: 0 gabapentin 300 mg capsule 400 mg PO TID RF: 0 Referrals Referrals: Jaspal Bae MD [Primary Care Provider] - Discharge Problem: Sepsis Qualifiers: Sepsis type: sepsis due to unspecified organism Qualified Code(s): A41.9 - Sepsis, unspecified organism Abdominal pain Qualifiers: Abdominal location: generalized Qualified Code(s): R10.84 - Generalized abdominal pain UTI (urinary tract infection) Qualifiers: Urinary tract infection type: site unspecified Hematuria presence: without hematuria Qualified Code(s): N39.0 - Urinary tract infection, site not specified Vomiting Qualifiers: Vomiting type: unspecified Vomiting Intractability: non-intractable Nausea presence: with nausea Qualified Code(s): R11.2 - Nausea with vomiting, unspecified Anemia Qualifiers: Anemia type: unspecified type Qualified Code(s): D64.9 - Anemia, unspecified The scribe's documentation has been prepared under my direction and personally reviewed by me in its entirety. I confirm that the note above accurately reflects all work, treatment, procedures, and medical decision making performed by me.
[2018-09-25] MEDS ORDERED: PROMETHAZINE 12.5 MG/50.5 ML BAG IV STA (02:28)
[2018-09-25] MEDS ORDERED: AZTREONAM 2,000 MG in DEXTROSE 5% 100 ML IV STA (02:50)
[2018-09-25 03:10] LABS: Magnesium 1.6 mg/dl (1.8-2.4)
--- NOTE | 2018-09-25 03:23 | History & Physical Report ---
Date of Service September 25, 2018 Assessment & Plan (1) Sepsis: Secondary to complicated UTI (hx enteric pathogens, Pseudomonas on previous urine cultures ) failed outpatient Rx Hyponatremia secondary to illness Seizure disorder, stable Acute on chronic anemia, hemoglobin drop from baseline possibly from left upper extremity ecchymosis following traumatic injury Thrombocytopenia secondary to sepsis Pericardial effusion on initial CT read hx gastroparesis PUD status post surgery anxiety/mood disorder, at baseline Medical telemetry Cultures, IV Azactam Care for correction of sodium, hyponatremia work-up Nephrology consult for hyponatremia if with worsening Follow official CT results, TTE if pericardial effusion present Anemia work-up DVT prophylaxis. SCDs RE thrombocytopenia, LUE ecchymoses Full code History of Present Illness Chief Complaint: Abdominal pain, nausea, vomiting Primary Care Provider: Jaspal Bae MD History obtained from patient and records. Medical history significant for gastroparesis, seizure disorder, PUD status post surgery, anxiety/mood disorder, history of von Willebrand's disease, chronic anemia (baseline hemoglobin 11), history of aminoglycoside induced blindness. Recent confinement July 2017 for metabolic encephalopathy. Few days ago patient noted urinary frequency, dysuria symptoms, achy lower abdominal pain, nausea/emesis, poor appetite. Patient also bruised her left hand against a barn door. Urine dipstick showed WBC esterase, no significant growth on final urine CS. Abdominal x-ray showed moderate stool. Plain x-ray of the left hand read still pending. Patient prescribed Macrodantin. Worsening symptoms despite medication intake. Patient noted achy chest pain following emesis symptoms. At the ER, patient given IV Ceftriaxone for sepsis. Patient developed a rash following IV Ceftriaxone. Benadryl, Famotidine administered for allergic reaction. Medical History as above Surgical History : PEG tube placement, vascular procedures, cholecystectomy, gastrectomy, hand surgery, hysterectomy Family History : Von Willebrand's disease, alcoholism, heart disease , breast cancer Personal/Social history : Non-smoker, occasional alcohol intake - denies abuse, last drink was few days ago, disabled Allergies Allergy/AdvReac Type Severity Reaction Status Date / Time latex Allergy Severe RASH Verified 09/25/18 01:44 tobramycin Allergy Severe BLINDNESS Verified 09/25/18 01:44 ceftriaxone Allergy Intermediate Rash Verified 09/25/18 02:51 Penicillins Allergy Intermediate RASH Verified 09/25/18 01:44 Quinolones Allergy Intermediate RASH Verified 09/25/18 01:44 Sulfa (Sulfonamide Allergy Intermediate HIVES Verified 09/25/18 01:44 Antibiotics) Aminoglycosides Allergy Unknown UNKNOWN Verified 09/25/18 01:44 ciprofloxacin Allergy INSIDE OF Verified 09/25/18 01:44 LIPS BURN & PEEL doxycycline Allergy Hives, Verified 09/25/18 01:44 VOMITING iron dextran complex AdvReac Intermediate SHORT OF Verified 09/25/18 01:44 BREATH W/ HEART RACING lactose AdvReac Intermediate NAUSEA, GI Verified 09/25/18 01:44 UPSET citalopram AdvReac RESTLESS Verified 09/25/18 01:44 CONTRASTMEDIA Allergy Mild FACIAL Uncoded 09/25/18 01:44 SWELLING WITH IV CONTRAST Ferric Oxide AdvReac Intermediate HIVES Uncoded 09/25/18 01:44 Home Medications Home Medications Medication Instructions Recorded Confirmed Type albuterol sulfate 2 puff INHALATION QID PRN 01/29/18 09/25/18 History cyclobenzaprine 5 mg PO TID PRN 01/29/18 09/25/18 History fexofenadine 180 mg PO DAILY 01/29/18 09/25/18 History furosemide 40 mg PO DAILY PRN 01/29/18 09/25/18 History gabapentin 400 mg PO TID 01/29/18 09/25/18 History montelukast 10 mg PO DAILY PRN 01/29/18 09/25/18 History pantoprazole 40 mg PO BID 01/29/18 09/25/18 History potassium chloride 20 meq PO DAILY PRN 01/29/18 09/25/18 History promethazine 25 mg PO Q8 PRN 01/29/18 09/25/18 History eletriptan [Relpax] 40 mg PO UD PRN 07/07/18 09/25/18 History levetiracetam [Keppra] 1,500 mg PO Q12 07/07/18 09/25/18 History lorazepam 1 mg PO Q6H PRN 07/07/18 09/25/18 History trazodone 50 mg PO HS PRN 07/07/18 09/25/18 History zoledronic [id number] 5 mg IV YEARLY 07/07/18 09/25/18 History [Reclast] thiamine HCl (vitamin B1) [Vitamin 100 mg PO QAM #20 tab 07/09/18 09/25/18 Rx B-1] Past Med/Surg History Social History Preferred Language: Malay Communication Ability: Effective Migration Specialist Required: No Beliefs That Will Affect Care: None marital status: Current Living Situation: Alone current occupational status: disabled Other Information That Helps Us Care for You: No Feels Safe at Home: Yes Safety Concerns: Feels Safe At This Time Smoking Status: Never smoker Hx Alcohol Use: Yes Alcohol type: other Hx Substance Use: No Review of Systems Review of Systems: As per HPI, all 10 systems reviewed, all other ROS negative Physical Exam Physical Exam: GENERAL: Slightly uncomfortable, no respiratory distress SKIN: Pallor , warm HEENT: flushed face, pale palpebral conjunctivae, no ptosis, dry buccal mucosa NECK : Supple, no tenderness CHEST : CTA, no tenderness HEART : Tachycardic , no obvious murmurs ABDOMEN: Some distention, hypogastric tenderness EXTREMITIES : Ecchymoses over left hand dorsum, left forearm, left upper arm, tender left hand NEUROLOGIC : Coherent, no facial asymmetry, no other gross focality Results & Data Vital Signs (Past 12 Hours) Vital Signs Temp Pulse Pulse Resp BP BP Pulse Ox 09/25/18 02:04 37.3 C 127 H 18 101/76 100 09/25/18 02:03 37.3 C 09/25/18 01:22 132 H 20 98/72 L 97 09/25/18 00:34 39.2 C H 135 H 20 114/75 99 09/24/18 23:10 100 09/24/18 23:09 39.6 C H 144 H 22 136/78 99 Laboratory Results Laboratory Results WBC 8.54 K/uL (4.8-10.8) 09/24/18 23:45 RBC 3.57 M/uL (4.2-5.4) L 09/24/18 23:45 Hgb 10.9 g/dL (12.0-16.0) L 09/24/18 23:45 Hct 31.7 % (37-47) L 09/24/18 23:45 MCV 88.8 fL (80-100) 09/24/18 23:45 MCH 30.5 pg (25-34) 09/24/18 23:45 MCHC 34.4 g/dL (32-36) 09/24/18 23:45 RDW Std Deviation 59.4 fL (36.4-46.3) H 09/24/18 23:45 RDW Coeff of Lisa 18.9 % (11.5-14.5) H 09/24/18 23:45 Plt Count 121 K/uL (130-400) L 09/24/18 23:45 MPV 10.2 fL (7.4-10.4) 09/24/18 23:45 Immature Gran % (Auto) 0.5 % 09/24/18 23:45 Neut % (Auto) 95.5 % 09/24/18 23:45 Lymph % (Auto) 1.3 % 09/24/18 23:45 [place] % (Auto) 1.2 % 09/24/18 23:45 Eos % (Auto) 1.5 % 09/24/18 23:45 Baso % (Auto) 0.0 % 09/24/18 23:45 Immature Gran # (Auto) 0.04 K/uL (0.00-0.02) H 09/24/18 23:45 Neut # (Auto) 8.16 K/uL (1.4-6.5) H 09/24/18 23:45 Lymph # (Auto) 0.11 K/uL (1.2-3.4) L 09/24/18 23:45 [place] # (Auto) 0.10 K/uL (0.11-0.59) L 09/24/18 23:45 Eos # (Auto) 0.13 K/uL (0-0.5) 09/24/18 23:45 Baso # (Auto) 0.00 K/uL (0-0.2) 09/24/18 23:45 PT 10.9 Seconds (9.0-12.0) 09/24/18 23:45 INR 1.1 (0.9-1.1) 09/24/18 23:45 APTT 67.6 Seconds (21.0-31.0) H* 09/24/18 23:45 PTT Ratio 2.5 09/24/18 23:45 Sodium 127 mmol/L (136-145) L 09/24/18 23:45 Potassium 3.5 mmol/L (3.5-5.1) 09/24/18 23:45 Chloride 96 mmol/L (98-107) L 09/24/18 23:45 Carbon Dioxide 21 mmol/L (21-32) 09/24/18 23:45 10.0 (3-11) 09/24/18 23:45 BUN 5 mg/dl (7-18) L 09/24/18 23:45 0.66 mg/dl (0.6-1.2) 09/24/18 23:45 Est Cr Clr Drug Dosing 96.5 ml/min 09/24/18 23:45 Est GFR ( Amer) 120.2 09/24/18 23:45 Est GFR (Non-Af Amer) 103.7 09/24/18 23:45 7.2 (10-20) L 09/24/18 23:45 Glucose 88 mg/dl (70-99) 09/24/18 23:45 256 mOsm/kg (280-300) L 09/24/18 23:50 0.8 mmol/L (0.4-2.0) 09/24/18 23:45 Calcium 7.6 mg/dl (8.5-10.1) L 09/24/18 23:45 Magnesium 1.6 mg/dl (1.8-2.4) L 09/24/18 23:45 0.6 mg/dl (0.2-1) 09/24/18 23:45 AST 31 U/L (15-37) 09/24/18 23:45 ALT 20 U/L (12-78) 09/24/18 23:45 81 U/L (45-117) 09/24/18 23:45 < 0.015 ng/ml (0-0.045) 09/24/18 23:45 5.8 gm/dl (6.4-8.2) L 09/24/18 23:45 2.7 gm/dl (3.4-5.0) L 09/24/18 23:45 3.1 gm/dl (2.5-4.0) 09/24/18 23:45 0.9 (0.9-2) 09/24/18 23:45 0.56 ng/ml (0-0.5) H 09/24/18 23:45 TSH 0.456 uIu/ml (0.300-4.500) 09/24/18 23:45 Dark Yellow 09/24/18 23:52 Clear (Clear) 09/24/18 23:52 6.5 (4.5-7.5) 09/24/18 23:52 Ur Specific [place] 1.016 (1.000-1.030) 09/24/18 23:52 Negative (Negative) 09/24/18 23:52 Negative (Negative) 09/24/18 23:52 4+ (Negative) H 09/24/18 23:52 Negative (Negative) 09/24/18 23:52 Negative (Negative) 09/24/18 23:52 Negative (Negative) 09/24/18 23:52 Negative (Negative) 09/24/18 23:52 Ur Leukocyte Esterase Trace (Negative) H 09/24/18 23:52 1-5 /hpf (0-5) 09/24/18 23:52 0-4 /hpf (0-4) 09/24/18 23:52 U Hyaline Cast (Auto) 1-5 /lpf (0-5) 09/24/18 23:52 U Epithel Cells (Auto) 10-20 /lpf (0-5) H 09/24/18 23:52 Negative (Negative) 09/24/18 23:52 294 mOsm/kg (500-800) L 09/24/18 23:52 Ur Random Sodium 25 mmol/L 09/24/18 23:[address] abdomen pelvis initial read: Normal appendix, bilateral pleural effusions, small pericardial effusion Chest x-ray as per my interpretation: Atelectasis EKG as per my interpretation : Rate 140, sinus tachycardia, low voltage (1) Sepsis Sepsis type: sepsis due to unspecified organism Qualified Code(s): A41.9 - Sepsis, unspecified organism
[2018-09-25] MEDS ORDERED: PROMETHAZINE HCL 12.5 MG in SODIUM CHLORIDE 0.9% 50 ML IV PRN (04:43)
[2018-09-25] MEDS ORDERED: POTASSIUM CHLORIDE 20 MEQ TABCR PO STA (04:43)
[2018-09-25] MEDS ORDERED: ALBUMIN 25% 50 ML IV ONE (04:43)
[2018-09-25] MEDS ORDERED: MONTELUKAST SODIUM 10 MG TABLET PO PRN (04:43)
[2018-09-25] MEDS ORDERED: LORazepam 1 MG TAB PO PRN (04:43)
[2018-09-25] MEDS ORDERED: TRAZODONE HCL 50 MG TAB PO PRN (04:43)
[2018-09-25] MEDS ORDERED: LORATADINE 10 MG TAB PO ONE (04:50)
[2018-09-25] MEDS: ACETAMINOPHEN 325 MG TAB PO PRN ×2 (05:13→12:58)
[2018-09-25] MEDS ORDERED: AZTREONAM CONSULT ACTIVE PRN (05:22)
[2018-09-25 05:45] LABS: Eosinophils # (auto) 0.49 K/uL (0-0.5); Hematocrit (blood only) 29.5 % (37-47); Hemoglobin 9.8 g/dL (12.0-16.0); Immature Granulocytes # (auto) 0.03 K/uL (0.00-0.02); Immature Granulocytes % (auto) 0.5 %; Lymphocytes # (auto) 0.18 K/uL (1.2-3.4); Mean Corpuscular Hgb Conc 33.2 g/dL (32-36); Mean Corpuscular Volume 90.5 fL (80-100); Mean Platelet Volume 10.5 fL (7.4-10.4); Monocytes % (auto) 1.6 %; Neutrophils % (auto) 86.9 %; Platelet Count 106 K/uL (130-400); RDW Coefficient of Variation 19.1 % (11.5-14.5); RDW Standard Deviation 60.9 fL (36.4-46.3); Red Blood Count 3.26 M/uL (4.2-5.4); Reticulocyte % 0.6 % (0.5-2.0); Reticulocytes # 0.02 10^6/uL (0.02-0.10)
[2018-09-25] MEDS: MAGNESIUM SULFATE / D5W 1 GM/100 ML BAG IV SCH ×2 (06:02→07:03)
[2018-09-25 06:25] LABS: BUN Creatinine Ratio 8.2 (10-20); Creatinine Clr Calc Pharmacy 101.1 ml/min; Est GFR (African American) 122.1; Est GFR (Non-African American) 105.3; Potassium 3.4 mmol/L (3.5-5.1)
[2018-09-25 06:30] LABS: Ferritin 167.8 ng/ml (8-388)
--- NOTE | 2018-09-25 06:52 | CT Scan Report ---
CT SCAN OF THE ABDOMEN AND PELVIS WITHOUT CONTRAST CLINICAL HISTORY: abd pain, n/v COMPARISON STUDY: 07/07/2018 TECHNIQUE: CT scan of the abdomen and pelvis was performed from the lung bases to the proximal femurs . Images are reviewed in the axial, sagittal, and coronal planes. IV contrast was not administered fo r this examination. A dose lowering technique was utilized adhering to the principles of ALARA. CT DOSE: 257.91 mGy.cm FINDINGS: Lower chest: There are small bilateral pleural effusions. There are basilar atelectatic changes. Ther e is a small pericardial effusion. Liver: There is hepatic steatosis. No masses are visualized in this noncontrast study. Gallbladder: Surgically absent Spleen: Normal in size and attenuation. Pancreas: Unremarkable. Adrenal glands: Unremarkable. Kidneys: No renal, ureteral, or bladder calculi are visualized. Bowel: There are no transition zones indicate bowel obstruction. There is no evidence of acute divert iculitis. The appendix appears normal. Postoperative changes involve the stomach Peritoneum: There is no intraperitoneal free air or abdominal ascites. Vasculature: The abdominal aorta is normal in course and caliber. Adenopathy: None. Pelvic viscera: The uterus appears surgically absent Skeletal structures: There are chronic T11 and T12 compression deformities. IMPRESSION: 1. No evidence of bowel obstruction. No evidence of free air 2. No evidence of acute diverticulitis. Normal appendix. 3. Hepatic steatosis 4. Small bilateral pleural effusions 5. Surgically absent gallbladder and uterus Electronically signed by: Saurabh Anderson M.D. 09/25/2018 6:51 AM
--- NOTE | 2018-09-25 06:57 | XRay Report ---
XR chest 1V portable HISTORY: 48 years-old Female Sepsis acute sepsis COMPARISON: CT abdomen and pelvis of same day, chest radiograph 07/07/2018 TECHNIQUE: Portable AP view of the chest FINDINGS: Stable positioning of the right internal jugular [id number]-a-[id number] catheter. Cardiomediastinal and hilar silhouettes are within normal limits. Trace pleural effusions. No pneumothorax, overt pulmonary edema or lobar airspace consolidation. Degenerative changes of the shoulders and spine. IMPRESSION: Trace pleural effusions with otherwise unremarkable exam. The above report was generated using voice recognition software. It may contain grammatical, syntax o r spelling errors. Electronically signed by: Scott Blanco M.D. 09/25/2018 6:55 AM
--- NOTE | 2018-09-25 08:07 | Hospitalist Progress Note ---
Date of Service September 25, 2018 Assessment & Plan (1) Sepsis: Secondary to complicated UTI Met sepsis criteria: Tachycardia, febrile Failed outpatient rx- Macrodin Clinically improving - Fever trending down, no leukocytosis -Prior hx of UTI- Enteric pathogens, Pseudomonas on previous urine cultures -IV Rocephin---> Developed rash---> IV Azactam - Day 1 -Follow up urine cx, blood cx Hyponatremia secondary to illness Presented with Na 127, now down to 132 -IV Fluids -Monitor trend Hypokalemia Mild- replete Monitor Allergic rxn to Rocephin Developed rash - improving but still has some rash, itchiness - Seizure disorder -Continue with Keppra 1500 mg twice daily Acute on chronic anemia: Slight drop in HB with no overt signs of GI bleeding -Iron studies- Iron 8 with Ferritin 160s, TIBC low , Transferrin 162, FOBT ordered, Folic acid, vit [id number] -Start Iron supplement -Monitor H & H Possibly from left upper extremity ecchymosis following traumatic injury Thrombocytopenia secondary to sepsis -No signs of bleeding -Monitor trend Abnormal Preliminary CT scan read Showed pericardial effusion, final read- none seen Hx gastroparesis PUD status post surgery Anxiety/mood disorder, at baseline DVT prophylaxis. SCDs RE thrombocytopenia, LUE ecchymoses Full code Disposition Medical mx in progress Expected discharge home when stable Subjective Patient is feeling better. Still has some dysuria, nausea. No episodes of vomiting. Bilateral flank pain presentimproving Rash is improving. Still has some itchiness. Fever is trending down, no chills. Physical Exam Physical Exam: GENERAL- AAOX3, No acute distress HEAD- Atraumatic, Normocephalic LUNGS- Air entry bilaterally equal. No rales, rhonchi, crackles, wheezes heard. HEART- Regular rate and rhythm. No murmurs ABDOMEN-bilateral flank tenderness, soft, lower quadrant tenderness, non distended, Bowel sounds heard. EXTREMITIES- Good peripheral pulses, no edema SKIN- Rash- on left knee, b/l arms, Echymosis on left arm and dorsal part of hand from trauma Results & Data Vital Signs (Past 12 Hours) Vital Signs Temp Pulse Pulse Pulse Pulse Resp BP 09/25/18 07:22 36.7 C 100 H 18 09/25/18 05:58 36.9 C 98 H 16 09/25/18 04:35 36.6 C 101 H 18 09/25/18 04:07 110 H 18 112/71 09/25/18 02:04 37.3 C 127 H 18 09/25/18 02:03 37.3 C 09/25/18 01:22 132 H 20 09/25/18 00:34 39.2 C H 135 H 20 09/24/18 23:10 09/24/18 23:09 39.6 C H 144 H 22 136/78 BP Pulse Ox 09/25/18 07:22 92/69 L 96 09/25/18 05:58 103/72 99 09/25/18 04:35 93/69 L 99 09/25/18 04:07 97 09/25/18 02:04 101/76 100 09/25/18 02:03 09/25/18 01:22 98/72 L 97 09/25/18 00:34 114/75 99 09/24/18 23:10 100 09/24/18 23:09 99 (1) Sepsis Sepsis type: sepsis due to unspecified organism Qualified Code(s): A41.9 - Sepsis, unspecified organism
[2018-09-25 08:10] LABS: Folate (Folic Acid) 10.2 ng/ml (>5.38)
[2018-09-25] MEDS: levETIRAcetam 500 MG TAB PO SCH ×2 (08:38→21:29)
[2018-09-25] MEDS: GABAPENTIN 400 MG CAP PO SCH ×3 (08:38→21:29)
[2018-09-25] MEDS: PANTOprazole 40 MG TAB PO SCH ×2 (08:39→21:29)
[2018-09-25] MEDS: THIAMINE HCL 100 MG TAB PO SCH (08:39)
[2018-09-25] MEDS ORDERED: POTASSIUM CHLORIDE 10 MEQ TABCR PO ONE (08:45)
[2018-09-25] MEDS ORDERED: GABAPENTIN 100 MG CAP PO SCH (09:00)
[2018-09-25] MEDS: FERROUS SULFATE 325 MG TAB PO SCH (09:27)
[2018-09-25] MEDS ORDERED: ONDANSETRON INJ 2 MG/ML 2 ML VIAL IV PRN (10:06)
[2018-09-25] MEDS: AZTREONAM 2,000 MG in DEXTROSE 5% 100 ML IV SCH ×2 (12:49→20:20)
[2018-09-25] MEDS: OXYCODONE HCL IR 5 MG TAB (IMMEDIATE RELEASE) PO PRN ×2 (16:29→21:47)
[2018-09-25] MEDS: PROMETHAZINE HCL 12.5 MG in SODIUM CHLORIDE 0.9% 50 ML IV PRN (21:10)
[2018-09-25] MEDS ORDERED: HEPARIN 100 UNIT/ML 5ML FLUSH FLUSH SCH (21:45)
[2018-09-26] MEDS: AZTREONAM 2,000 MG in DEXTROSE 5% 100 ML IV SCH ×3 (04:01→20:25)
[2018-09-26] MEDS: HEPARIN 100 UNIT/ML 5ML FLUSH FLUSH PRN ×3 (05:02→21:32)
[2018-09-26 06:35] LABS: Hematocrit (blood only) 27.8 % (37-47); Hemoglobin 9.3 g/dL (12.0-16.0); Mean Corpuscular Hgb Conc 33.5 g/dL (32-36); Mean Corpuscular Volume 90.8 fL (80-100); Mean Platelet Volume 11.7 fL (7.4-10.4); Platelet Count 124 K/uL (130-400); RDW Standard Deviation 61.8 fL (36.4-46.3); Red Blood Count 3.06 M/uL (4.2-5.4); White Blood Count 3.82 K/uL (4.8-10.8)
[2018-09-26 07:15] LABS: BUN Creatinine Ratio 13.2 (10-20); Calcium 7.9 mg/dl (8.5-10.1); Est GFR (African American) 132.6; Est GFR (Non-African American) 114.4; Potassium 3.2 mmol/L (3.5-5.1)
[2018-09-26] MEDS ORDERED: POTASSIUM CHLORIDE 20 MEQ TABCR PO STA (07:54)
[2018-09-26] MEDS: FERROUS SULFATE 325 MG TAB PO SCH (08:19)
[2018-09-26] MEDS: THIAMINE HCL 100 MG TAB PO SCH (08:19)
[2018-09-26] MEDS: GABAPENTIN 400 MG CAP PO SCH ×3 (08:20→21:37)
[2018-09-26] MEDS: levETIRAcetam 500 MG TAB PO SCH ×2 (08:20→21:37)
[2018-09-26] MEDS: PANTOprazole 40 MG TAB PO SCH ×2 (08:20→21:38)
--- NOTE | 2018-09-26 11:17 | Hospitalist Progress Note ---
Date of Service September 26, 2018 Assessment & Plan (1) Sepsis: Secondary to complicated UTI Met sepsis criteria: Tachycardia, febrile Failed outpatient Rx- Macrodin Clinically improving - Fever trending down, no leukocytosis -Prior hx of UTI- Enteric pathogens, Pseudomonas on previous urine cultures -IV Rocephin---> Developed rash---> IV Azactam - Day 2 -Follow up urine cx, blood cx- No sig growth Hyponatremia secondary to illness- Resolved Presented with Na 127, now up to 140s -IV Fluids- okay to discontinue Hypokalemia Mild- replete Monitor Allergic rxn to Rocephin Developed rash - improving but still has some rash, itchiness - Seizure disorder -Continue with Keppra 1500 mg twice daily Acute on chronic anemia: Slight drop in HB with no overt signs of GI bleeding -Iron studies- Iron 8 with Ferritin 160s, TIBC low , Transferrin 162, FOBT ordered, Folic acid- Normal, vit b12-114 -Start Iron supplement -Monitor H & H Vitamin B12 deficiency Replete Monitor Possibly from left upper extremity ecchymosis following traumatic injury Thrombocytopenia secondary to sepsis -No signs of bleeding -Monitor trend Abnormal Preliminary CT scan read Showed pericardial effusion, final read- none seen Hx gastroparesis PUD status post surgery Anxiety/mood disorder, at baseline DVT prophylaxis. SCDs RE thrombocytopenia, LUE ecchymoses Full code Disposition Medical mx in progress Expected discharge home when stable Subjective Patient is feeling much better. Dysuria has resolved. Urinary frequency has resolved. Nausea + No episodes of vomiting. Bilateral flank pain presentimproving. Rash and itching has resolved. No more fever spikes. Physical Exam Physical Exam: GENERAL- AAOX3, No acute distress HEAD- Atraumatic, Normocephalic LUNGS- Air entry bilaterally equal. No rales, rhonchi, crackles, wheezes heard. HEART- Regular rate and rhythm. No murmurs ABDOMEN-bilateral flank tenderness, soft, lower quadrant tenderness, non distended, Bowel sounds heard. EXTREMITIES- Good peripheral pulses, no edema SKIN- Rash- on left knee, b/l arms, Echymosis on left arm and dorsal part of hand from trauma Results & Data Vital Signs (Past 12 Hours) Vital Signs Temp Pulse Pulse Resp BP BP Pulse Ox 09/26/18 07:45 36.4 C L 90 18 91/64 L 92 09/26/18 07:13 89 05/25/19 03:58 36.4 C L 98 H 16 91/64 L 96 09/26/18 00:00 100 H 09/25/18 23:17 36.6 C 122 H 18 108/78 96 (1) Sepsis Sepsis type: sepsis due to unspecified organism Qualified Code(s): A41.9 - Sepsis, unspecified organism
[2018-09-26] MEDS: OXYCODONE HCL IR 5 MG TAB (IMMEDIATE RELEASE) PO PRN (21:36)
[2018-09-27] MEDS: OXYCODONE HCL IR 5 MG TAB (IMMEDIATE RELEASE) PO PRN (03:44)
[2018-09-27] MEDS: AZTREONAM 2,000 MG in DEXTROSE 5% 100 ML IV SCH (04:19)
[2018-09-27] MEDS: PROMETHAZINE HCL 12.5 MG in SODIUM CHLORIDE 0.9% 50 ML IV PRN (05:38)
[2018-09-27] MEDS: HEPARIN 100 UNIT/ML 5ML FLUSH FLUSH PRN (05:57)
[2018-09-27 06:03] LABS: Basophils # (auto) 0.02 K/uL (0-0.2); Basophils % (auto) 0.4 %; Eosinophils # (auto) 1.62 K/uL (0-0.5); Eosinophils % (auto) 32.5 %; Hematocrit (blood only) 31.3 % (37-47); Hemoglobin 10.7 g/dL (12.0-16.0); Immature Granulocytes # (auto) 0.01 K/uL (0.00-0.02); Immature Granulocytes % (auto) 0.2 %; Lymphocytes # (auto) 1.08 K/uL (1.2-3.4); Lymphocytes % (auto) 21.6 %; Mean Corpuscular Hgb Conc 34.2 g/dL (32-36); Mean Corpuscular Volume 89.4 fL (80-100); Mean Platelet Volume 10.8 fL (7.4-10.4); Monocytes # (auto) 0.35 K/uL (0.11-0.59); Neutrophils # (auto) 1.91 K/uL (1.4-6.5); Neutrophils % (auto) 38.3 %; Platelet Count 143 K/uL (130-400); RDW Coefficient of Variation 19.1 % (11.5-14.5); RDW Standard Deviation 60.3 fL (36.4-46.3); White Blood Count 4.99 K/uL (4.8-10.8)
[2018-09-27 06:21] LABS: BUN Creatinine Ratio 9.4 (10-20); Calcium 8.1 mg/dl (8.5-10.1); Creatinine Clr Calc Pharmacy 104.4 ml/min; Est GFR (African American) 123.4; Est GFR (Non-African American) 106.5; Magnesium 1.7 mg/dl (1.8-2.4); Potassium 3.3 mmol/L (3.5-5.1)
[2018-09-27] MEDS: levETIRAcetam 500 MG TAB PO SCH (07:57)
[2018-09-27] MEDS: GABAPENTIN 400 MG CAP PO SCH (07:57)
[2018-09-27] MEDS: FERROUS SULFATE 325 MG TAB PO SCH (07:57)
[2018-09-27] MEDS: PANTOprazole 40 MG TAB PO SCH (07:57)
[2018-09-27] MEDS: THIAMINE HCL 100 MG TAB PO SCH (07:58)
[2018-09-27] MEDS ORDERED: MAGNESIUM SULFATE / D5W 1 GM/100 ML BAG IV ONE (08:04)
[2018-09-27] MEDS ORDERED: POTASSIUM CHLORIDE 20 MEQ TABCR PO STA (08:04)
--- NOTE | 2018-09-27 09:35 | Hospitalist Progress Note ---
Date of Service September 27, 2018 Assessment & Plan (1) Sepsis: Possible source: Urine Met sepsis criteria: Tachycardia, Febrile Failed outpatient Rx- Macrodin Clinically improved with no fever spikes since admission -Prior hx of UTI- Enteric pathogens, Pseudomonas on previous urine cultures ?? per records, but per EMR - gardenella for last 2 times. -IV Rocephin---> Developed rash---> IV Azactam - Day 3 (Patient has multiple drug allergies- Quinolones, Sulfa, Cephalosporins, Doxycycline). Unfortunately with urine cx - no sig growth, received IV Azactam x 3 days, will just finish course of macrodin x 4 more days = 7 days of antibiotics -Blood cx x 2- no growth Hyponatremia secondary to illness- Resolved Presented with Na 127, now up to 140s -S/P IVF Hypokalemia/Hypomagnesemia Mild- replete. Gave 40 meq today for K 3.3 and Mg 1 gram Monitor outpatient. Allergic rxn to Rocephin and multiple drugs Developed rash -resolved Seizure disorder -Continue with Keppra 1500 mg twice daily Acute on chronic anemia: Slight drop in HB with no overt signs of GI bleeding -Iron studies- Iron 8 with Ferritin 160s, TIBC low , Transferrin 162, FOBT ordered, Folic acid- Normal, vit b12-114 -Started Iron supplement -Monitor H & H outpatient Vitamin B12 deficiency Started on Vit b12 supplement. Level 114 Monitor outpatient Possibly from left upper extremity ecchymosis following traumatic injury Thrombocytopenia secondary to sepsis -No signs of bleeding Abnormal Preliminary CT scan read Showed pericardial effusion, final read- none seen Hx gastroparesis PUD status post surgery Anxiety/mood disorder, at baseline DVT prophylaxis. SCDs RE thrombocytopenia, LUE ecchymoses Full code Disposition Okay to discharge home today Subjective Patient is feeling much better. Dysuria has resolved. Urinary frequency has resolved. Nausea improved. No episodes of vomiting. Bilateral flank pain improved Rash and itching has resolved. No more fever spikes. Physical Exam Physical Exam: GENERAL- AAOX3, No acute distress HEAD- Atraumatic, Normocephalic LUNGS- Air entry bilaterally equal. No rales, rhonchi, crackles, wheezes heard. HEART- Regular rate and rhythm. No murmurs ABDOMEN-bilateral flank tenderness, soft, lower quadrant tenderness, non distended, Bowel sounds heard. EXTREMITIES- Good peripheral pulses, no edema SKIN- Rash- on left knee, b/l arms, Echymosis on left arm and dorsal part of h and from trauma has resolved Results & Data Vital Signs (Past 12 Hours) Vital Signs Temp Pulse Pulse Resp BP Pulse Ox 09/27/18 08:03 36.6 C 92 H 18 102/74 99 09/27/18 07:05 90 09/27/18 04:46 109/77 09/27/18 04:44 36.9 C 76 18 169/77 H 93 09/26/18 23:51 36.6 C 108 H 19 96/62 L 98 09/26/18 23:26 108 H (1) Sepsis Sepsis type: sepsis due to unspecified organism Qualified Code(s): A41.9 - Sepsis, unspecified organism
--- NOTE | 2018-09-27 10:10 | Discharge Summary ---
Date of Service September 27, 2018 Admission HPI Per Admitting Provider History obtained from patient and records. Medical history significant for gastroparesis, seizure disorder, PUD status post surgery, anxiety/mood disorder, history of von Willebrand's disease, chronic anemia (baseline hemoglobin 11), history of aminoglycoside induced blindness. Recent confinement July 2017 for metabolic encephalopathy. Few days ago patient noted urinary frequency, dysuria symptoms, achy lower abd ominal pain, nausea/emesis, poor appetite. Patient also bruised her left hand against a barn door. Urine dipstick showed WBC esterase, no significant growth on final urine CS. Abdominal x-ray showed moderate stool. Plain x-ray of the left hand read still pending. Patient prescribed Macrodantin. Worsening symptoms despite medication intake. Patient noted achy chest pain following emesis symptoms. At the ER, patient given IV Ceftriaxone for sepsis. Patient developed a rash following IV Ceftriaxone. Benadryl, Famotidine administered for allergic reaction. Medical History as above Surgical History : PEG tube placement, vascular procedures, cholecystectomy, gastrectomy, hand surgery, hysterectomy Family History : Von Willebrand's disease, alcoholism, heart disease , breast cancer Personal/Social history : Non-smoker, occasional alcohol intake - denies abuse, last drink was few days ago, disabled Principal Diagnosis 1. Sepsis 2. Possible UTI 3. Hypokalemia, Hypomagnesemia 4. Vitamin B12 deficiency 5. Hyponatremia, hypovolemic 6. Allergic rxn to cephalosporin (rash), resolved 7. Anemia, iron deficiency Secondary diagnosis on discharge 1. Depression/Anxiety 2. Alcohol drinker 3. Decreased vision bilaterally 4. Gastroparesis Discharge Exam GENERAL- AAOX3, No acute distress EYES- Decreased vision bilaterally HEAD- Atraumatic, Normocephalic LUNGS- Air entry bilaterally equal. No rales, rhonchi, crackles, wheezes heard. HEART- Regular rate and rhythm. No murmurs ABDOMEN-bilateral flank tenderness, soft, lower quadrant tenderness, non distended, Bowel sounds heard. EXTREMITIES- Good peripheral pulses, no edema SKIN- Rash- on left knee, b/l arms, Echymosis on left arm and dorsal part of hand from trauma has resolved Discharge Data Allergies Allergy/AdvReac Type Severity Reaction Status Date / Time latex Allergy Severe RASH Verified 09/25/18 01:44 tobramycin Allergy Severe BLINDNESS Verified 09/25/18 01:44 ceftriaxone Allergy Intermediate Rash Verified 09/25/18 02:51 Penicillins Allergy Intermediate RASH Verified 09/25/18 01:44 Quinolones Allergy Intermediate RASH Verified 09/25/18 01:44 Sulfa (Sulfonamide Allergy Intermediate HIVES Verified 09/25/18 01:44 Antibiotics) Aminoglycosides Allergy Unknown UNKNOWN Verified 09/25/18 01:44 ciprofloxacin Allergy INSIDE OF Verified 09/25/18 01:44 LIPS BURN & PEEL doxycycline Allergy Hives, Verified 09/25/18 01:44 VOMITING iron dextran complex AdvReac Intermediate SHORT OF Verified 09/25/18 01:44 BREATH W/ HEART RACING lactose AdvReac Intermediate NAUSEA, GI Verified 09/25/18 01:44 UPSET citalopram AdvReac RESTLESS Verified 09/25/18 01:44 CONTRASTMEDIA Allergy Mild FACIAL Uncoded 09/25/18 01:44 SWELLING WITH IV CONTRAST Ferric Oxide AdvReac Intermediate HIVES Uncoded 09/25/18 01:44 Consultations 09/25/18 02:37 ED Decision to Admit Stat Ordered Studies 09/25/18 01:26 CT abd pelvis wo con Urgent Hospital Course (1) Sepsis: Possible source: Urine Met sepsis criteria: Tachycardia, Febrile Failed outpatient Rx- Macrodin Clinically improved with no fever spikes since admission -Prior hx of UTI- Enteric pathogens, Pseudomonas on previous urine cultures ?? per records, but per EMR - [facility] for [facility] 2 times. -IV Rocephin---> Developed rash---> IV Azactam - Day 3 (Patient has multiple drug allergies- Quinolones, Sulfa, Cephalosporins, Doxycycline). Unfortunately with urine cx - no sig growth, received IV Azactam x 3 days, will just finish course of macrodin x 4 more days = 7 days of antibiotics -Blood cx x 2- no growth Hyponatremia secondary to illness- Resolved Presented with Na 127, now up to 140s -S/P IVF Hypokalemia/Hypomagnesemia Mild- replete. Gave 40 meq today for K 3.3 and Mg 1 gram Monitor outpatient. Allergic rxn to Rocephin and multiple drugs Developed rash -resolved Seizure disorder -Continue with Keppra 1500 mg twice daily Acute on chronic anemia: Slight drop in HB with no overt signs of GI bleeding -Iron studies- Iron 8 with Ferritin 160s, TIBC low , Transferrin 162, FOBT ordered, Folic acid- Normal, vit b12-114 -Started Iron supplement -Monitor H & H outpatient Vitamin B12 deficiency Started on Vit b12 supplement. Level 114 Monitor outpatient Possibly from left upper extremity ecchymosis following traumatic injury Thrombocytopenia secondary to sepsis -No signs of bleeding Abnormal Preliminary CT scan read Showed pericardial effusion, final read- none seen Hx gastroparesis PUD status post surgery Anxiety/mood disorder, at baseline DVT prophylaxis. SCDs RE thrombocytopenia, LUE ecchymoses Full code Disposition Okay to discharge home today Total Time Total Time Spent Total Time Spent (In Minutes): 35 minutes Discharge Plan Discharge Items Patient Disposition: Home - Self-Care Reason For Visit: SEPSIS,HYPONATREMIA Discharge Diagnosis: Possible UTI Hypokalemia, Hypomagnesemia Discharge Goals: Decrease discomfort Activity: Resume your previous activity Non-emergency contact: Primary Care Provider Call non-emergency contact if: your symptoms worsen Follow-up/Referrals: Jaspal Bae MD [Primary Care Provider] - (We will call you for appt date/time) Diet: Heart Healthy Addtl Provider Instructions: You were admitted to the hospital for possible UTI. Urine culture does not show any significant growth. You were treated with IV antibiotics for 3 days. Medication changes 1. Recommend 4 more days of Macrodantin to complete 7 days of antibiotics. 2. Vitamin B12 deficiency with level 114. Recommend supplements (ordered) 3. Anemia with iron deficiency- recommend iron supplement (OTC) Prescriptions: New vitamin B complex [B Complex-Vitamin B12] tablet 1 tab PO DAILY Qty: 30 RF: 2 Continued trazodone 50 mg Tablet 50 mg PO HS PRN (Reason: Sleep) RF: 0 levetiracetam [Keppra] 500 mg tablet 1,500 mg PO Q12 RF: 0 lorazepam 1 mg tablet 1 mg PO Q6H PRN (Reason: Anxiety) RF: 0 eletriptan [Relpax] 40 mg Tablet 40 mg PO UD PRN (Reason: Migraine Headache) RF: 0 zoledronic rfno-[id number]-rxfsi [Reclast] 5 mg/100 mL Piggyback 5 mg IV YEARLY RF: 0 thiamine HCl (vitamin B1) [Vitamin B-1] 100 mg Tablet 100 mg PO QAM Qty: 20 RF: 0 albuterol sulfate 90 mcg/actuation HFA aerosol inhaler 2 puff Inhalation QID PRN (Reason: Shortness Of Breath) RF: 0 cyclobenzaprine 5 mg tablet 5 mg PO TID PRN (Reason: Muscle Spasm) RF: 0 fexofenadine 180 mg Tablet 180 mg PO DAILY RF: 0 furosemide 20 mg tablet 40 mg PO DAILY PRN (Reason: Edema) RF: 0 pantoprazole 40 mg tablet,delayed release (DR/EC) 40 mg PO BID RF: 0 promethazine 25 mg tablet 25 mg PO Q8 PRN (Reason: Nausea And Vomiting) RF: 0 montelukast 10 mg tablet 10 mg PO DAILY PRN (Reason: Allergy Symptoms) RF: 0 potassium chloride 10 mEq tablet,ER particles/crystals 20 meq PO DAILY PRN (Reason: when taking lasix) RF: 0 gabapentin 300 mg capsule 400 mg PO TID RF: 0 Stand-Alone Forms: [facility] Discharge Orders: Discharge Order (Routine); Ordered 09/27/18 Ordered By: Gisela Deleon Admission Data Admit Date/Time: 09/25/18 03:25 Attending Provider: Gisela Deleon Admit Provider: Joby Gorman Primary Care Provider: Jaspal Bae Other Providers: Joby Gorman Service: Telemetry Medical
== END 2018-09-27 13:11 | disposition home or self-care (01) | DRG 872 ==
LOC: ED 22:57 → 2N 09-25 03:25

== ENCOUNTER 2018-11-18 14:12 | Inpatient (IN) ==
--- NOTE | 2018-11-18 15:25 | XRay Report ---
XR shoulder RT min 2V routine CLINICAL HISTORY: Rt shoulder pain s/p fall COMPARISON: None DISCUSSION: There is an oblique fracture involving the humerus at the junction of the proximal and mi ddle one third. There is a vertical component which extends to the level of the humeral neck. On the crosstable lateral view there is 17 mm of maximal displacement. There is no evidence for shoulder dis location. There is 23 degrees of vertex lateral angulation at the fracture site. IMPRESSION: Displaced angulated oblique fracture of the humerus extending from the humeral neck to th e junction of the proximal and middle one third. No evidence of shoulder dislocation Electronically signed by: Saurabh Anderson M.D. 11/18/2018 3:24 PM
[2018-11-18] MEDS ORDERED: ONDANSETRON INJ 2 MG/ML 2 ML VIAL IV STA (15:30)
[2018-11-18] MEDS ORDERED: SODIUM CHLORIDE 0.9% 1000ML 1,000 ML IV ONE (15:31)
[2018-11-18] MEDS: HYDROmorphone INJ 0.5 MG/0.5 ML SYR IV PRN ×3 (16:05→19:48)
[2018-11-18] MEDS ORDERED: PROPOFOL IV EMULSION 10 MG/ML 20 ML VIAL IV STA (16:12)
[2018-11-18] MEDS ORDERED: KETAMINE HCL INJ 50 MG/ML 10 ML VIAL IV STA (16:12)
[2018-11-18] MEDS ORDERED: METOCLOPRAMIDE HCL INJ 5 MG/ML 2 ML VIAL IV ONE (16:13)
--- NOTE | 2018-11-18 16:52 | Emergency Department Note ---
ED Visit Note I was asked by Dr. Valles to perform fracture reduction under conscious sedation. Please see his notes for conscious sedation details. Benefits/risks of the procedure were discussed with the patient and patient consented to the procedure. Procedure: Right humerus fracture reduction Indication: Displaced right humerus fracture After the patient was adequately sedated, gentle downward traction was applied to the humerus and pressure applied to the area of the fracture to facilitate reduction. Fracture was successfully reduced. Patient was able to wiggle fingers afterward and neurovascular status intact. Patient was placed in a coaptation and posterior arm splint by the ED geospatial technician under supervision. Splint was reassessed and neurovascular status intact. Patient tolerated the procedure well.
--- NOTE | 2018-11-18 17:36 | CT Scan Report ---
CT humerus RT wo con CLINICAL HISTORY: 48 years-old Female presenting with fx. TECHNIQUE: Multidetector CT of the right humerus was performed without the use of intravenous contras t. 3-D volumetric and/or maximum intensity projection (MIP) images were subsequently reconstructed fo r review. IV contrast: None. One or more dose lowering techniques were used consistent with the princ iples of RUDDY (as low as reasonably achievable), including automatic exposure control, mA or kV adju stment to individual patient size, and/or use of iterative reconstruction. COMPARISON: Right shoulder radiographs from earlier today. CT DOSE (mGy.cm): The estimated cumulative dose is 577.18 mGy.cm. FINDINGS: [employer] Offbearer topogram: Unremarkable. Fracture of the proximal to mid diaphysis of the right humerus with a predominant transverse componen t. There is a prominent butterfly fracture fragment along the posterior medial aspect, which measures approximately 5.6 cm in length. And in contact complete split fracture pattern is evident along the bicipital groove, which may extend to the humeral head though not to the articular surface. There is mild apex lateral and posterior angulation. Approximately one half shaft width posterior displacement of the distal fracture fragment. A cortical fracture fragment is displaced within the fracture plane . Evaluation of the soft tissues demonstrates hematoma within the fracture plane. Elbow joint and glenohumeral joints congruent. IMPRESSION: 1. Mildly displaced and mildly angulated proximal to mid diaphyseal fracture of the right humerus wi th cortical fracture fragments in the fracture plane. 2. Prominent butterfly fracture fragment in the posterior medial soft tissues. 3. Split fracture plane extension into the bicipital groove. Electronically signed by: Abdiaziz Calhoun M.D. 11/18/2018 5:35 PM
[2018-11-18] MEDS ORDERED: ACETAMINOPHEN 1,000 MG/100 ML VIAL IV STA (18:15)
--- NOTE | 2018-11-18 19:07 | XRay Report ---
SINGLE VIEW CHEST CLINICAL HISTORY: Atypical chest pain. FINDINGS: An AP, portable, supine chest radiograph is compared to study dated 09/24/2018. Correlation is made with chest CT dated 01/26/2018. The examination is degraded by portable technique and patient rotation. A right internal jugular central venous infusion port is unchanged in position. The cardiom ediastinal silhouette is unremarkable. The lungs and pleural spaces are clear. No pneumothorax is see n. A right proximal humeral fracture is noted. Scoliosis is noted in the lower thoracic spine. IMPRESSION: 1. No active disease in the chest. 2. Right proximal humeral fracture. Electronically signed by: Geovanny Marcelo M.D. 11/18/2018 7:06 PM
[2018-11-18 19:08] LABS: Basophils # (auto) 0.05 K/uL (0-0.2); Basophils % (auto) 0.4 %; Eosinophils # (auto) 0.04 K/uL (0-0.5); Eosinophils % (auto) 0.3 %; Hematocrit (blood only) 33.8 % (37-47); Hemoglobin 11.3 g/dL (12.0-16.0); Immature Granulocytes # (auto) 0.04 K/uL (0.00-0.02); Immature Granulocytes % (auto) 0.3 %; Lymphocytes # (auto) 1.55 K/uL (1.2-3.4); Lymphocytes % (auto) 13.1 %; Mean Corpuscular Hgb Conc 33.4 g/dL (32-36); Mean Corpuscular Volume 94.7 fL (80-100); Mean Platelet Volume 9.8 fL (7.4-10.4); Monocytes # (auto) 0.94 K/uL (0.11-0.59); Monocytes % (auto) 7.9 %; Neutrophils # (auto) 9.22 K/uL (1.4-6.5); Platelet Count 343 K/uL (130-400); RDW Standard Deviation 73.1 fL (36.4-46.3); Red Blood Count 3.57 M/uL (4.2-5.4); White Blood Count 11.84 K/uL (4.8-10.8)
[2018-11-18] MEDS ORDERED: OXYCODONE HCL IR 5 MG TAB (IMMEDIATE RELEASE) PO STA (19:12)
--- NOTE | 2018-11-18 19:21 | History & Physical Report ---
Date of Service November 18, 2018 Assessment & Plan (1) Fall: (2) Fracture, humerus: This is a 48-year-old female who has a known past medical history of von willebrand disease, seizure disorder, peptic ulcer disease, anxiety, depression, gastroparesis, history of gastrectomy, osteoporosis who presents to [facility] ED secondary to mechanical fall at home. In ED CT scan of R humerus reveals mildly displaced and angulated proximal mid diaphyseal fracture of the right humerus with cortical fragment Splint was placed Orthopedics was consulted - waiting evaluation Patient will be admitted to med/surg telemetry for pain control, PT/OT and orthopedic evaluation Pt was seen and examined in collaboration with Dr. Alberto, please see addendum for further details regarding assessment and plan (3) Von Willebrand disease: (4) Gastroparesis: (5) Peptic ulcer disease: (6) Seizure disorder: (7) Depression: (8) Anxiety: (9) DVT prophylaxis: History of Present Illness Chief Complaint: Mechanical fall over dog prior to arrival. Primary Care Provider: Jaspal Bae MD This is a 48-year-old female who has a known past medical history of von willebrand disease, seizure disorder, peptic ulcer disease, anxiety, depression, gastroparesis, history of gastrectomy, osteoporosis who presents to [facility] ED secondary to mechanical fall at home. Prior to arrival patient was walking her dog however she got tangled up in dog got wrapped around her. She fell on her right shoulder on concrete and had imm ediate pain. Denies hitting head or LOC. Denies lightheaded, dizziness. Despite analgesia in ED patient continues to complain of significant right upper extremity pain. She states "I have just about everything wrong with me." Denies f/c/s, chest pain, sob, n/v/abdominal pain, change in bowel or urinary habits. States she has hx of gastrectomy with chronic gastroparesis. Daughter and son-in-law at bedside. Allergies Allergy/AdvReac Type Severity Reaction Status Date / Time latex Allergy Severe RASH Verified 11/18/18 14:27 tobramycin Allergy Severe BLINDNESS Verified 11/18/18 14:27 ceftriaxone Allergy Intermediate Rash Verified 11/18/18 14:27 Penicillins Allergy Intermediate RASH Verified 11/18/18 14:27 Quinolones Allergy Intermediate RASH Verified 11/18/18 14:27 Sulfa (Sulfonamide Allergy Intermediate HIVES Verified 11/18/18 14:27 Antibiotics) Aminoglycosides Allergy Unknown UNKNOWN Verified 11/18/18 14:27 ciprofloxacin Allergy INSIDE OF Verified 11/18/18 14:27 LIPS BURN & PEEL doxycycline Allergy Hives, Verified 11/18/18 14:27 VOMITING iron dextran complex AdvReac Intermediate SHORT OF Verified 11/18/18 14:27 BREATH W/ HEART RACING lactose AdvReac Intermediate NAUSEA, GI Verified 09/25/18 01:44 UPSET citalopram AdvReac RESTLESS Verified 09/25/18 01:44 CONTRASTMEDIA Allergy Mild FACIAL Uncoded 09/25/18 01:44 SWELLING WITH IV CONTRAST Ferric Oxide AdvReac Intermediate HIVES Uncoded 09/25/18 01:44 Home Medications Home Medications Medication Instructions Recorded Confirmed Type albuterol sulfate 2 puff INHALATION QID PRN 01/29/18 11/18/18 History cyclobenzaprine 5 mg PO TID PRN 01/29/18 11/18/18 History fexofenadine 180 mg PO QAM 01/29/18 11/18/18 History furosemide 40 mg PO DIRECTED PRN 01/29/18 11/18/18 History montelukast [Singulair] 10 mg PO QAM PRN 01/29/18 11/18/18 History pantoprazole 40 mg PO BID 01/29/18 11/18/18 History potassium chloride 20 meq PO DIRECTED PRN 01/29/18 11/18/18 History promethazine 25 mg PO Q8 PRN 01/29/18 11/18/18 History levetiracetam [Keppra] 1,500 mg PO BID 07/07/18 11/18/18 History trazodone 50 mg PO HS PRN 07/07/18 11/18/18 History zoledronic wcgl-cdijgpaa-peuzn 5 mg IV YEARLY 07/07/18 11/18/18 History [Reclast] gabapentin 400 mg PO TID 11/18/18 11/18/18 History lorazepam 1 mg PO Q8H PRN 11/18/18 11/18/18 History Past Med/Surg History Medical History History of hysterectomy (Chronic) Anemia (Chronic) Iron studies- Iron 8 with Ferritin 160s, TIBC low , Transferrin 162, FOBT ordered, Folic acid- Normal, vit b12-114 done 09/25/18 Seizure disorder (Chronic) Alcohol use (Chronic) DVT prophylaxis (Chronic) Anxiety (Chronic) Depression (Chronic) Peptic ulcer disease (Resolved) Von Willebrand disease (Chronic) Hypoparathyroidism (Chronic) Gastroparesis (Chronic) Blindness (Chronic) Surgical History History of percutaneous endoscopic gastrostomy (Chronic) History of hand surgery (Chronic) History of cholecystectomy (Resolved) History of gastrectomy (Chronic) secondary to PUD Family History Father Diabetes Mother Von Willebrand disease Social History Preferred Language: Lithuanian Communication Ability: Effective Beliefs That Will Affect Care: None marital status: Current Living Situation: Alone current occupational status: disabled Feels Safe at Home: Yes Smoking Status: Never smoker Hx Alcohol Use: Yes Alcohol type: other Hx Substance Use: No Review of Systems Review of Systems: As noted per HPI, 10 systems reviewed and negative unless noted above. Physical Exam Physical Exam: Gen: Thin, F, appears older than stated age, sun glasses on, + in pain, sitting up in bed, conversing easily Head: Normocephalic, Atraumatic Eyes: Sclera normal, no conjunctival injection, ENT: Gross hearing intact, normal pharynx, mucous membranes moist Neck: supple, no adenopathy, No JVD, no bruit, Resp: Clear to auscultation b/l, no wheeze, rales, rhonchi. Normal insp/exp effort, no accessory muscle use CV: R ACW mediport, Tachycardic rate, regular rhythm, no murmur, rub, gallop, or ectopy Abd: +BS x 4, soft, nontender, nondistended Musculoskeletal: moves extremities active rom x 3, RUE in splint, NVI distally, strength intact, good compliance technician strength Extremities: No edema bilaterally Skin: warm, moist, no rash, negative turgor, cap refill < 2sec Neuro: Alert and oriented x 3, speech normal, good mood/affect, cran nerve 2-12 intact grossly : deferred Results & Data Vital Signs (Past 12 Hours) Vital Signs Temp Pulse Pulse Resp BP BP Pulse Ox 11/18/18 19:00 124 H 106/75 97 11/18/18 18:07 129 H 96 11/18/18 18:06 125 H 18 108/70 94 11/18/18 17:06 133 H 110/74 94 11/18/18 17:03 131 H 18 110/74 94 11/18/18 17:00 126 H 101/82 95 11/18/18 16:55 127 H 102/70 93 11/18/18 16:51 129 H 93 11/18/18 16:50 130 H 104/72 94 11/18/18 16:45 132 H 92 11/18/18 16:41 135 H 97 11/18/18 16:40 138 H 103/58 L 97 11/18/18 16:37 137 H 90/66 L 100 11/18/18 16:35 136 H 97 11/18/18 16:31 141 H 118/75 99 11/18/18 16:30 138 H 100 11/18/18 16:27 120 H 113/75 97 11/18/18 16:26 120 H 14 113/75 97 11/18/18 16:25 120 H 100 11/18/18 16:22 117 H 100 11/18/18 14:16 116 H 101/71 100 11/18/18 14:10 36.8 C 120 H 20 101/71 99 Laboratory Results Short CBC 11/18/18 Range/Units 15:50 WBC 11.84 H (4.8-10.8) K/uL Hgb 11.3 L (12.0-16.0) g/dL Hct 33.8 L (37-47) % Plt Count 343 (130-400) K/uL Diagnostic Findings CXR: IMPRESSION: 1. No active disease in the chest. 2. Right proximal humeral fracture. Shoulder Xray: IMPRESSION: Displaced angulated oblique fracture of the humerus extending from the humeral neck to the junction of the proximal and middle one third. No evidence of shoulder dislocation Humerus CT: IMPRESSION: 1. Mildly displaced and mildly angulated proximal to mid diaphyseal fracture of the right humerus with cortical fracture fragments in the fracture plane. 2. Prominent butterfly fracture fragment in the posterior medial soft tissues. 3. Split fracture plane extension into the bicipital groove. Medications Administered Hydromorphone HCl (Dilaudid) 0.5 mg IV Q15M PRN PRN Reason: Pain Stop: 12/02/18 15:29 Last Admin: 11/18/18 18:07 Dose: 0.5 mg Documented by: [id number] Admin: 11/18/18 16:05 Dose: 0.5 mg Documented by: [id number] Discontinued Medications Sodium Chloride (Nss 1000ml) 1,000 mls @ 999 mls/hr IV .Q1H1M ONE Stop: 11/18/18 16:31 Last Infusion: 11/18/18 17:01 Dose: 0 mls/hr Documented by: [id number] Admin: 11/18/18 16:05 Dose: 999 mls/hr Documented by: [id number] Acetaminophen (Ofirmev) 1,000 mg in 100 mls @ 400 mls/hr IV NOW STA Stop: 11/18/18 18:29 Last Infusion: 11/18/18 19:03 Dose: 0 mls/hr Documented by: [id number] Admin: 11/18/18 18:33 Dose: 400 mls/hr Documented by: [id number] Ketamine HCl (Ketalar Steri-Vial) 28 mg IV NOW STA Stop: 11/18/18 16:13 Last Admin: 11/18/18 16:29 Dose: 28 mg Documented by: [id number] Metoclopramide HCl (Reglan) 5 mg IV ONE ONE Stop: 11/18/18 16:14 Last Admin: 11/18/18 16:29 Dose: 5 mg Documented by: [id number] Ondansetron HCl (Zofran) 4 mg IV NOW STA Stop: 11/18/18 15:31 Last Admin: 11/18/18 16:05 Dose: 4 mg Documented by: [id number] Propofol (Diprivan) 30 mg IV NOW STA Stop: 11/18/18 16:13 Last Admin: 11/18/18 16:29 Dose: 70 mg Documented by: [id number] Cosigned by: [id number] Code Status & VTE Plan Code Status Full Code VTE Prophylaxis Plan VTE Prophylaxis will be ordered: Yes Reason for no VTE drug order: Contraindicated Supervising Physician Co-Signing Physician Notes I have seen and examined the patient with our teams physician hospital aides and assistants teacher and agree with the assessment and plan as above and would like to comment that Physical Exam General: awake and alert and answering questions appropriately Vision: vision impaired, have sunglasses Head: normal cephalic and atraumatic Heart rate: tachycardia Lungs: cleat to auscultation bilaterally Abdomen: soft, nontender, positive bowel sounds Extremities: right arm in sling, scratches on right knuckle Reports history of surgeries in the past: gallbladder removed, Fracture of humerus after mechanical fall and Pathological fracture secondary to Osteoporosis -CT scan 1. Mildly displaced and mildly angulated proximal to mid diaphyseal fracture of the right humerus with cortical fracture fragments in the fracture plane. 2. Prominent butterfly fracture fragment in the posterior medial soft tissues. 3. Split fracture plane extension into the bicipital groove. -pain control as prn acetaminophen, Percocet, tramadol, dilaudid prn for severe pain -orthopedics consult -if surgery is indicated then will need antibiotic with least possible allergic reaction -PT/OT evaluations -note that patient has vision impairments -takes yearly Reclast for osteoporosis Von Willebrand disease: -monitor hemoglobin -patients has had transfusions in the past Gastroparesis history -meals for now as tolerated, NPO after midnight in case of orthopedic intervention Peptic ulcer disease -monitor, no abdomen pain Seizure disorder history -continue Keppra Depression/ Anxiety -Trazadone, Ativan home medications, continue Visually impaired DVT prophylaxis:SCDs/TEDs
[2018-11-18 19:28] LABS: Polychromasia 1+
[2018-11-18 19:31] LABS: Alanine Aminotransferase 71 U/L (12-78); Albumin Level 2.6 gm/dl (3.4-5.0); Aspartate Aminotransferase 355 U/L (15-37); BUN Creatinine Ratio 7.8 (10-20); Blood Urea Nitrogen 5 mg/dl (7-18); Calcium 7.2 mg/dl (8.5-10.1); Carbon Dioxide 23 mmol/L (21-32); Chloride 109 mmol/L (98-107); Creatinine Clr Calc Pharmacy 95.2 ml/min; Est GFR (African American) 121.4; Est GFR (Non-African American) 104.8; Glucose 71 mg/dl (70-99); Potassium 4.1 mmol/L (3.5-5.1); Sodium 142 mmol/L (136-145)
[2018-11-18 19:36] LABS: Albumin Globulin Ratio 0.9 (0.9-2); Alkaline Phosphatase 148 U/L (45-117); Bilirubin,Total 0.7 mg/dl (0.2-1); Creatine Kinase 213 U/L (26-192); Globulin 2.8 gm/dl (2.5-4.0); Total Protein 5.4 gm/dl (6.4-8.2); Troponin I < 0.015 ng/ml (0-0.045)
[2018-11-18] MEDS ORDERED: ACETAMINOPHEN 325 MG TAB PO PRN (21:00)
[2018-11-18] MEDS ORDERED: TRAZODONE HCL 50 MG TAB PO PRN (21:00)
[2018-11-18] MEDS ORDERED: MONTELUKAST SODIUM 10 MG TABLET PO PRN (21:00)
[2018-11-18] MEDS ORDERED: POLYETHYLENE (MIRALAX) 17 GM PACK PO PRN (21:00)
[2018-11-18] MEDS ORDERED: MAGNESIUM HYDROXIDE SUSP 30 ML UDC PO PRN (21:00)
[2018-11-18] MEDS ORDERED: ALUMINUM/MAGNESIUM SUSP 30 ML UDC PO PRN (21:00)
[2018-11-18] MEDS ORDERED: ALBUTEROL HFA 8 GM INHALER INH PRN (21:00)
--- NOTE | 2018-11-18 21:36 | Emergency Department Note ---
Entered by Tanika Gonzales acting as a scribe for History of Present Illness General Chief complaint: Fall Time Seen by Provider: 11/18/18 14:14 Source: patient Mode of arrival: EMS Limitations: no limitations History of Present Illness Onset (ago): hour(s) 2 Radiation: non-radiation Pain Consistency: + now resolved Relieved By: + none Exacerbated By: + other (tripping over dog) Associated symptoms: + other (+right shoulder pain, -abdominal pain, -hip pain, -neck pain, -back pain) Treatments prior to arrival: none The patient is a 48 year old female who presents to the ED with complaints of a fall. Her daughter states the patient got tangled up with her dogs leash and fell down some steps. The patient complains of right shoulder pain. She states she is having surgery on her left surgery in just over [address] Rebollar of [facility]. The patient denies losing consciousness during the fall. She states she does not remember hitting her head during the fall. She denies any abdominal pain. She denies any hip pain with movement of the legs. She denies any neck or back pain. Home Medications Home Medications Medication Instructions Recorded Confirmed Type albuterol sulfate 2 puff INHALATION QID PRN 01/29/18 11/18/18 History cyclobenzaprine 5 mg PO TID PRN 01/29/18 11/18/18 History fexofenadine 180 mg PO QAM 01/29/18 11/18/18 History furosemide 40 mg PO DIRECTED PRN 01/29/18 11/18/18 History montelukast [Singulair] 10 mg PO QAM PRN 01/29/18 11/18/18 History pantoprazole 40 mg PO BID 01/29/18 11/18/18 History potassium chloride 20 meq PO DIRECTED PRN 01/29/18 11/18/18 History promethazine 25 mg PO Q8 PRN 01/29/18 11/18/18 History levetiracetam [Keppra] 1,500 mg PO BID 07/07/18 11/18/18 History trazodone 50 mg PO HS PRN 07/07/18 11/18/18 History zoledronic wzwm-[id number]-knxcs 5 mg IV YEARLY 07/07/18 11/18/18 History [Reclast] gabapentin 400 mg PO TID 11/18/18 11/18/18 History lorazepam 1 mg PO Q8H PRN 11/18/18 11/18/18 History Allergies Allergy/AdvReac Type Severity Reaction Status Date / Time latex Allergy Severe RASH Verified 11/18/18 14:27 tobramycin Allergy Severe BLINDNESS Verified 11/18/18 14:27 ceftriaxone Allergy Intermediate Rash Verified 11/18/18 14:27 Penicillins Allergy Intermediate RASH Verified 11/18/18 14:27 Quinolones Allergy Intermediate RASH Verified 11/18/18 14:27 Sulfa (Sulfonamide Allergy Intermediate HIVES Verified 11/18/18 14:27 Antibiotics) Aminoglycosides Allergy Unknown UNKNOWN Verified 11/18/18 14:27 ciprofloxacin Allergy INSIDE OF Verified 11/18/18 14:27 LIPS BURN & PEEL doxycycline Allergy Hives, Verified 11/18/18 14:27 VOMITING iron dextran complex AdvReac Intermediate SHORT OF Verified 11/18/18 14:27 BREATH W/ HEART RACING lactose AdvReac Intermediate NAUSEA, GI Verified 09/25/18 01:44 UPSET citalopram AdvReac RESTLESS Verified 09/25/18 01:44 CONTRASTMEDIA Allergy Mild FACIAL Uncoded 09/25/18 01:44 SWELLING WITH IV CONTRAST Ferric Oxide AdvReac Intermediate HIVES Uncoded 09/25/18 01:44 Past Med/Surg History Medical History History of hysterectomy (Chronic) Anemia (Chronic) Iron studies- Iron 8 with Ferritin 160s, TIBC low , Transferrin 162, FOBT ordered, Folic acid- Normal, vit b12-114 done 09/25/18 Seizure disorder (Chronic) Alcohol use (Chronic) DVT prophylaxis (Chronic) Anxiety (Chronic) Depression (Chronic) Peptic ulcer disease (Resolved) Von Willebrand disease (Chronic) Hypoparathyroidism (Chronic) Gastroparesis (Chronic) Blindness (Chronic) Surgical History History of percutaneous endoscopic gastrostomy (Chronic) History of hand surgery (Chronic) History of cholecystectomy (Resolved) History of gastrectomy (Chronic) secondary to PUD Family History Father Diabetes Mother Von Willebrand disease Social History Preferred Language: Divehi Communication Ability: Effective Correspondence School 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 and A total of 10 systems reviewed and were otherwise negative Physical Exam Vital Signs Vital Signs - 24 hr 11/18/18 14:10 11/18/18 14:16 11/18/18 16:10 Temperature 36.8 C Temperature Source Oral Sepsis Recent Fever Within 48 Hours No Sepsis New/Unexplained Change in Mental Status No Sepsis Action Taken by Nursing No Action Required End-Tidal CO2 8 End Tidal CO2 (18-54mmHg) Pulse Rate 120 H 116 H Pulse Rate [Left Apical] Pulse Rate from SpO2 Sensor 116 H Pulse Rhythm [Left Apical] Pulse Strength [Left Apical] Respiratory Rate 20 Respiratory Effort / Characteristics Respiratory Depth Respiratory Pattern Blood Pressure 101/71 101/71 Blood Pressure [Left Arm] Blood Pressure Mean 81 81 Blood Pressure Mean [Left Arm] Blood Pressure Position [Left Arm] Pulse Oximetry 99 100 Oxygen Delivery Method Room Air Room Air Oxygen Flow Rate 11/18/18 16:22 11/18/18 16:25 11/18/18 16:26 Temperature Temperature Source Sepsis Recent Fever Within 48 Hours Sepsis New/Unexplained Change in Mental Status Sepsis Action Taken by Nursing End-Tidal CO2 8 End Tidal CO2 (18-54mmHg) 28 Pulse Rate 117 H 120 H 120 H Pulse Rate [Left Apical] Pulse Rate from SpO2 Sensor 117 H 120 H Pulse Rhythm [Left Apical] Pulse Strength [Left Apical] Respiratory Rate 14 Respiratory Effort / Characteristics Non-Labored Respiratory Depth Normal Respiratory Pattern Regular Blood Pressure Blood Pressure [Left Arm] 113/75 Blood Pressure Mean Blood Pressure Mean [Left Arm] Blood Pressure Position [Left Arm] Pulse Oximetry 100 100 97 Oxygen Delivery Method Nasal Cannula Oxygen Flow Rate 2 11/18/18 16:27 11/18/18 16:30 11/18/18 16:31 Temperature Temperature Source Sepsis Recent Fever Within 48 Hours Sepsis New/Unexplained Change in Mental Status Sepsis Action Taken by Nursing End-Tidal CO2 28 37 30 End Tidal CO2 (18-54mmHg) Pulse Rate 120 H 138 H 141 H Pulse Rate [Left Apical] Pulse Rate from SpO2 Sensor 116 H 138 H 140 H Pulse Rhythm [Left Apical] Pulse Strength [Left Apical] Respiratory Rate Respiratory Effort / Characteristics Respiratory Depth Respiratory Pattern Blood Pressure 113/75 118/75 Blood Pressure [Left Arm] Blood Pressure Mean 87 89 Blood Pressure Mean [Left Arm] Blood Pressure Position [Left Arm] Pulse Oximetry 97 100 99 Oxygen Delivery Method Oxygen Flow Rate 11/18/18 16:35 11/18/18 16:37 11/18/18 16:40 Temperature Temperature Source Sepsis Recent Fever Within 48 Hours Sepsis New/Unexplained Change in Mental Status Sepsis Action Taken by Nursing End-Tidal CO2 35 36 29 End Tidal CO2 (18-54mmHg) Pulse Rate 136 H 137 H 138 H Pulse Rate [Left Apical] Pulse Rate from SpO2 Sensor 136 H 138 H 138 H Pulse Rhythm [Left Apical] Pulse Strength [Left Apical] Respiratory Rate Respiratory Effort / Characteristics Respiratory Depth Respiratory Pattern Blood Pressure 90/66 L 103/58 L Blood Pressure [Left Arm] Blood Pressure Mean 74 73 Blood Pressure Mean [Left Arm] Blood Pressure Position [Left Arm] Pulse Oximetry 97 100 97 Oxygen Delivery Method Oxygen Flow Rate 11/18/18 16:41 11/18/18 16:45 11/18/18 16:50 Temperature Temperature Source Sepsis Recent Fever Within 48 Hours Sepsis New/Unexplained Change in Mental Status Sepsis Action Taken by Nursing End-Tidal CO2 End Tidal CO2 (18-54mmHg) Pulse Rate 135 H 132 H 130 H Pulse Rate [Left Apical] Pulse Rate from SpO2 Sensor 138 H 134 H 130 H Pulse Rhythm [Left Apical] Pulse Strength [Left Apical] Respiratory Rate Respiratory Effort / Characteristics Respiratory Depth Respiratory Pattern Blood Pressure 104/72 Blood Pressure [Left Arm] Blood Pressure Mean 82 Blood Pressure Mean [Left Arm] Blood Pressure Position [Left Arm] Pulse Oximetry 97 92 94 Oxygen Delivery Method Oxygen Flow Rate 11/18/18 16:51 11/18/18 16:55 11/18/18 17:00 Temperature Temperature Source Sepsis Recent Fever Within 48 Hours Sepsis New/Unexplained Change in Mental Status Sepsis Action Taken by Nursing End-Tidal CO2 End Tidal CO2 (18-54mmHg) Pulse Rate 129 H 127 H 126 H Pulse Rate [Left Apical] Pulse Rate from SpO2 Sensor 129 H 127 H 126 H Pulse Rhythm [Left Apical] Pulse Strength [Left Apical] Respiratory Rate Respiratory Effort / Characteristics Respiratory Depth Respiratory Pattern Blood Pressure 102/70 101/82 Blood Pressure [Left Arm] Blood Pressure Mean 80 88 Blood Pressure Mean [Left Arm] Blood Pressure Position [Left Arm] Pulse Oximetry 93 93 95 Oxygen Delivery Method Oxygen Flow Rate 11/18/18 17:03 11/18/18 17:06 11/18/18 18:06 Temperature Temperature Source Sepsis Recent Fever Within 48 Hours Sepsis New/Unexplained Change in Mental Status Sepsis Action Taken by Nursing End-Tidal CO2 End Tidal CO2 (18-54mmHg) Pulse Rate 133 H 125 H Pulse Rate [Left Apical] 131 H Pulse Rate from SpO2 Sensor 132 H 125 H Pulse Rhythm [Left Apical] Regular Pulse Strength [Left Apical] Normal Respiratory Rate 18 18 Respiratory Effort / Characteristics Non-Labored Respiratory Depth Normal Respiratory Pattern Regular Blood Pressure 110/74 108/70 Blood Pressure [Left Arm] 110/74 Blood Pressure Mean 86 82 Blood Pressure Mean [Left Arm] 86 Blood Pressure Position [Left Arm] Lying Pulse Oximetry 94 94 94 Oxygen Delivery Method Room Air Oxygen Flow Rate 11/18/18 18:07 11/18/18 19:00 Temperature Temperature Source Sepsis Recent Fever Within 48 Hours Sepsis New/Unexplained Change in Mental Status Sepsis Action Taken by Nursing End-Tidal CO2 End Tidal CO2 (18-54mmHg) Pulse Rate 129 H 124 H Pulse Rate [Left Apical] Pulse Rate from SpO2 Sensor 129 H 124 H Pulse Rhythm [Left Apical] Pulse Strength [Left Apical] Respiratory Rate Respiratory Effort / Characteristics Respiratory Depth Respiratory Pattern Blood Pressure 106/75 Blood Pressure [Left Arm] Blood Pressure Mean 85 Blood Pressure Mean [Left Arm] Blood Pressure Position [Left Arm] Pulse Oximetry 96 97 Oxygen Delivery Method Oxygen Flow Rate GENERAL: Awake, alert, well-appearing, in no acute distress, patient is min imally cooperative with exam. HENT: Normocephalic, atraumatic. Old healing contusion to the left forehead area, about 2 inches by 2 inches. Oropharynx unremarkable. EYES: Normal conjunctiva. Sclera non-icteric. NECK: Supple. No nuchal rigidity. FROM. No JVD. RESPIRATORY: Clear to auscultation. CARDIAC: Regular rate, normal rhythm. Extremities warm and well perfused. Pulses equal. ABDOMEN: Soft, non-distended. No tenderness to palpation. No rebound or guarding. No masses. RECTAL: Deferred. MUSCULOSKELETAL: Chest examination reveals no tenderness. The back is symmetrical on inspection without obvious abnormality. There is no CVA tenderness to palpation. No joint edema. UPPER EXTREMITIES: No ROM of right shoulder. Good ROM of right elbow and wrist, NVI at wrist. LOWER EXTREMITIES: Calves are equal size bilaterally and non-tender. No edema. No discoloration. NEURO: Normal sensorium. No sensory or motor deficits noted. SKIN: No rash or jaundice noted. Procedures Free Text Procedures Procedural Sedation Indication: Reduction and Splinting Total time: 14 minutes. Written consent was obtained after the risks and benefits were explained to the patient, including, but not limited to aspiration, allergic reaction, breathing difficulties, cardiac complications, vomiting, pain, event recall, bleeding, and/or infection. Pre-sedation examination and paperwork completed. The patient was on 100% oxygen via NRB prior to the procedure. Continuous end tidal CO2 monitoring, pulse oximetry, and cardiac monitoring were utilized. Suction, airway equipment, medications, respiratory equipment, and appropriate personnel were prepared prior to the initiation of the procedure. A time out was taken. Sedation was achieved utilizing 28 mg of Ketamine and 70 mg of Propofol in increments of 30 mg and 20mg. After I observed the patient had reached the appropriate level of sedation the main procedure was performed without complication. Sedation was discontinued and the monitoring continued. The patient recovered quickly from the effects of the medication without complication or adverse event. Course 1427: The patient was evaluated in room B11B and a complete history and physical were performed. 1430: I offered her a CT scan of the head but she declined stating she does not think this is necessary. 1500: I gave the patient an ice-pack. 1525: Nursing informed me the patient would like something for pain. 1532: I reevaluated the patient. She is demanding a disposition for her by 1600 since her daughter has to leave to go to work. 1535: I discussed the patients case with Dr. Small, [facility]. The Orthopedics P[facility] will come down and evaluate the patient. He also recommends I order a CT. 1556: I spoke with Dr. Small again. He recommends we reduce her humerus. 1810: I reevaluated the patient. I discussed my recommendation she remain in the hospital for further evaluation and management and she verbalized complete unde rstanding and agreement. 1844: I discussed the patients case with Dr. Freda Perales PA-C, [facility]. The patient will be further evaluated. Consultations Consultation #1: I discussed the patients case with Dr. Small, [facility]. The Orthopedics [facility] will come down and evaluate the patient. He also recommends I order a CT. Time: 15:35 Consultation #2: I discussed the patients case with Dr. Freda Perales PA-C, [facility] Hospitalist. The patient will be further evaluated. Time: 18:44 Administered Medications Discontinued Medications Hydromorphone HCl (Dilaudid) 0.5 mg IV Q15M PRN PRN Reason: Pain Stop: 12/02/18 15:29 Last Admin: 11/18/18 19:48 Dose: 0.5 mg Documented by: [id number] Admin: 11/18/18 18:07 Dose: 0.5 mg Documented by: [id number] Admin: 11/18/18 16:05 Dose: 0.5 mg Documented by: [id number] Sodium Chloride (Nss 1000ml) 1,000 mls @ 999 mls/hr IV .Q1H1M ONE Stop: 11/18/18 16:31 Last Infusion: 11/18/18 17:01 Dose: 0 mls/hr Documented by: [id number] Admin: 11/18/18 16:05 Dose: 999 mls/hr Documented by: [id number] Acetaminophen (Ofirmev) 1,000 mg in 100 mls @ 400 mls/hr IV NOW STA Stop: 11/18/18 18:29 Last Infusion: 11/18/18 19:03 Dose: 0 mls/hr Documented by: [id number] Admin: 11/18/18 18:33 Dose: 400 mls/hr Documented by: [id number] Ketamine HCl (Ketalar Steri-Vial) 28 mg IV NOW STA Stop: 11/18/18 16:13 Last Admin: 11/18/18 16:29 Dose: 28 mg Documented by: [id number] Metoclopramide HCl (Reglan) 5 mg IV ONE ONE Stop: 11/18/18 16:14 Last Admin: 11/18/18 16:29 Dose: 5 mg Documented by: [id number] Ondansetron HCl (Zofran) 4 mg IV NOW STA Stop: 11/18/18 15:31 Last Admin: 11/18/18 16:05 Dose: 4 mg Documented by: [id number] Oxycodone HCl (Roxicodone Immediate Rel) 5 mg PO NOW STA Stop: 11/18/18 19:13 Last Admin: 11/18/18 19:53 Dose: 5 mg Documented by: [id number] Propofol (Diprivan) 30 mg IV NOW STA Stop: 11/18/18 16:13 Last Admin: 11/18/18 16:29 Dose: 70 mg Documented by: [id number] Cosigned by: [id number] Medical Decision Making Differential Diagnosis Differential diagnoses include major intracranial, cervical, spinal, thoracic, abdominal, pelvic and neurologic injury. Fracture, contusion, sprain, strain, laceration, abrasions included as well. Medical Records Attestation: I reviewed the patient's medical records. Home Medications Current Medication List: was personally reviewed by me Laboratory Data Attestation: I reviewed the patient's lab results. Result diagrams: 11/18/18 15:50 11/18/18 15:50 Lab Results 11/18/18 11/18/18 Range/Units 15:50 15:50 WBC 11.84 H (4.8-10.8) K/uL RBC 3.57 L (4.2-5.4) M/uL Hgb 11.3 L (12.0-16.0) g/dL Hct 33.8 L (37-47) % MCV 94.7 (80-100) fL MCH 31.7 (25-34) pg MCHC 33.4 (32-36) g/dL RDW Std Deviation 73.1 H (36.4-46.3) fL RDW Coeff of Lisa 21.0 H (11.5-14.5) % Plt Count 343 (130-400) K/uL MPV 9.8 (7.4-10.4) fL Immature Gran % (Auto) 0.3 % Neut % (Auto) 78.0 % Lymph % (Auto) 13.1 % [place] % (Auto) 7.9 % Eos % (Auto) 0.3 % Baso % (Auto) 0.4 % Immature Gran # (Auto) 0.04 H (0.00-0.02) K/uL Neut # (Auto) 9.22 H (1.4-6.5) K/uL Lymph # (Auto) 1.55 (1.2-3.4) K/uL [place] # (Auto) 0.94 H (0.11-0.59) K/uL Eos # (Auto) 0.04 (0-0.5) K/uL Baso # (Auto) 0.05 (0-0.2) K/uL Polychromasia 1+ Sodium 142 (136-145) mmol/L Potassium 4.1 (3.5-5.1) mmol/L Chloride 109 H (98-107) mmol/L Carbon Dioxide 23 (21-32) mmol/L Anion Gap 10.0 (3-11) BUN 5 L (7-18) mg/dl Creatinine 0.64 (0.6-1.2) mg/dl Est Cr Clr Drug Dosing 95.2 ml/min Est GFR ( Amer) 121.4 Est GFR (Non-Af Amer) 104.8 BUN/Creatinine Ratio 7.8 L (10-20) Glucose 71 (70-99) mg/dl Calcium 7.2 L (8.5-10.1) mg/dl Total Bilirubin 0.7 (0.2-1) mg/dl AST 355 H (15-37) U/L ALT 71 (12-78) U/L Alkaline Phosphatase 148 H (45-117) U/L Total Creatine Kinase 213 H (26-192) U/L Troponin I < 0.015 (0-0.045) ng/ml Total Protein 5.4 L (6.4-8.2) gm/dl Albumin 2.6 L (3.4-5.0) gm/dl Globulin 2.8 (2.5-4.0) gm/dl Albumin/Globulin Ratio 0.9 (0.9-2) Lipase 22 L (73-393) U/L Imaging Data Radiologist's Impression: Radiology results as stated below per my review and the radiologist's interpretation: XR shoulder RT min 2V routine CLINICAL HISTORY: Rt shoulder pain s/p fall COMPARISON: None DISCUSSION: There is an oblique fracture involving the humerus at the junction of the proximal and middle one third. There is a vertical component which extends to the level of the humeral neck. On the crosstable lateral view there is 17 mm of maximal displacement. There is no evidence for shoulder dislocation. There is 23 degrees of vertex lateral angulation at the fracture site. IMPRESSION: Displaced angulated oblique fracture of the humerus extending from the humeral neck to the junction of the proximal and middle one third. No evidence of shoulder dislocation Electronically signed by: Saurabh Anderson M.D. 11/18/2018 3:[address] humerus RT wo con CLINICAL HISTORY: 48 years-old Female presenting with fx. TECHNIQUE: Multidetector CT of the right humerus was performed without the use of intravenous contrast. 3-D volumetric and/or maximum intensity projection (MIP) images were subsequently reconstructed for review. IV contrast: None. One or more dose lowering techniques were used consistent with the principles of ALARA (as low as reasonably achievable), including automatic exposure control, mA or kV adjustment to individual patient size, and/or use of iterative reconstruction. COMPARISON: Right shoulder radiographs from earlier today. CT DOSE (mGy.cm): The estimated cumulative dose is 577.18 mGy.cm. FINDINGS: Physician Office Specialist topogram: Unremarkable. Fracture of the proximal to mid diaphysis of the right humerus with a predominant transverse component. There is a prominent butterfly fracture fragment along the posterior medial aspect, which measures approximately 5.6 cm in length. And in contact complete split fracture pattern is evident along the bicipital groove, which may extend to the humeral head though not to the articular surface. There is mild apex lateral and posterior angulation. Approx imately one half shaft width posterior displacement of the distal fracture fragment. A cortical fracture fragment is displaced within the fracture plane. Evaluation of the soft tissues demonstrates hematoma within the fracture plane. Elbow joint and glenohumeral joints congruent. IMPRESSION: 1. Mildly displaced and mildly angulated proximal to mid diaphyseal fracture of the right humerus with cortical fracture fragments in the fracture plane. 2. Prominent butterfly fracture fragment in the posterior medial soft tissues. 3. Split fracture plane extension into the bicipital groove. Electronically signed by: Abdiaziz Calhoun M.D. 11/18/2018 5:35 PM ECG Data Attestation: I personally reviewed and interpreted this ECG as follows: Indication: weakness Rate (beats per minute): 140 Rhythm: sinus tachycardia Findings: + other (New septal infarct); no ST depression and no ST elevation MDM Narrative This is a 48-year-old female who presents emergency department waning of severe right arm pain. The patient is in moderate distress. I will note that the patient refused CAT scan of her head as well or x-rays or any other injury. She is concerned about her right shoulder. Based on this the patient was sent for x-rays. This was concerning for a humerus fracture. Due to the nature of the fracture I did discuss the case with [facility]. They recommended reduction of the fracture. Because the patient is unable to tolerate anybody touching her arm she is requesting that she be sedated. This was done as above. The fracture was splinted by Shiela Somers. Because of the patient's multiple comorbidities I feel she is a poor candidate to go home. She was given IV Dilaudid here in the emergency department. I did discuss the case with the [facility] service who agreed to admit the patient. The patient was sent for CAT scan for orthopedics of the upper extremity. Impression & Plan Fall, Fracture, humerus Discharge Plan Visit Data *Final* Discharge Date/Time: 11/18/18 20:20 Chief Complaint: Fall ED Provider: Dirk Valles Discharge Problem: Fall, Fracture, humerus Patient Disposition: Admitted As Inpatient Discharge Instructions Interventions: ED Discharge Assessment Last Done: 11/18/18 20:20 The scribe's documentation has been prepared under my direction and personally reviewed by me in its entirety. I confirm that the note above accurately reflects all work, treatment, procedures, and medical decision making performed by me.
--- NOTE | 2018-11-18 21:37 | Emergency Department Note ---
Entered by Tanika Gonzales acting as a scribe for Dirk Valles MD Pre Sedation Assessment Vital Signs Temp Pulse Pulse Resp BP BP Pulse Ox 11/18/18 19:00 124 H 106/75 97 11/18/18 18:07 129 H 96 11/18/18 18:06 125 H 18 108/70 94 11/18/18 17:06 133 H 110/74 94 11/18/18 17:03 131 H 18 110/74 94 11/18/18 17:00 126 H 101/82 95 11/18/18 16:55 127 H 102/70 93 11/18/18 16:51 129 H 93 11/18/18 16:50 130 H 104/72 94 11/18/18 16:45 132 H 92 11/18/18 16:41 135 H 97 11/18/18 16:40 138 H 103/58 L 97 11/18/18 16:37 137 H 90/66 L 100 11/18/18 16:35 136 H 97 11/18/18 16:31 141 H 118/75 99 11/18/18 16:30 138 H 100 11/18/18 16:27 120 H 113/75 97 11/18/18 16:26 120 H 14 113/75 97 11/18/18 16:25 120 H 100 11/18/18 16:22 117 H 100 11/18/18 14:16 116 H 101/71 100 11/18/18 14:10 36.8 C 120 H 20 101/71 99 Pre-Sedation Airway Assessment Smoking Status: Never smoker Notes The planned sedation has been discussed with the patient. Informed Consent was obtained. I have identified the patient, determined the appropriateness of sedation and have assessed the patient immediately prior to the procedure. All medicine(s) and interventions are by my order. The scribe's documentation has been prepared under my direction and personally reviewed by me in its entirety. I confirm that the note above accurately reflects all work, treatment, procedures, and medical decision making performed by me.
--- NOTE | 2018-11-18 21:37 | Emergency Department Note ---
Entered by Tanika Gonzales acting as a scribe for Dirk Valles MD Post Sedation Assessment Vital Signs Temp Pulse Pulse Resp BP BP Pulse Ox 11/18/18 19:00 124 H 106/75 97 11/18/18 18:07 129 H 96 11/18/18 18:06 125 H 18 108/70 94 11/18/18 17:06 133 H 110/74 94 11/18/18 17:03 131 H 18 110/74 94 11/18/18 17:00 126 H 101/82 95 11/18/18 16:55 127 H 102/70 93 11/18/18 16:51 129 H 93 11/18/18 16:50 130 H 104/72 94 11/18/18 16:45 132 H 92 11/18/18 16:41 135 H 97 11/18/18 16:40 138 H 103/58 L 97 11/18/18 16:37 137 H 90/66 L 100 11/18/18 16:35 136 H 97 11/18/18 16:31 141 H 118/75 99 11/18/18 16:30 138 H 100 11/18/18 16:27 120 H 113/75 97 11/18/18 16:26 120 H 14 113/75 97 11/18/18 16:25 120 H 100 11/18/18 16:22 117 H 100 11/18/18 14:16 116 H 101/71 100 11/18/18 14:10 36.8 C 120 H 20 101/71 99 Post Sedation Plan On clinical assessment, the patient appears to have tolerated the sedation without complications. Patient is recovering as anticipated. Patient will continue to be monitored by nursing and may be discharged when sedation discharge criteria are met per below protocol. Upon Completions of procedure and additional 15 minutes continue every 5 minute vital signs and the P.A.R. score; then discharge to a Phase I or Fast Track to Phase II per the following guidelines: * Discharge Patient to appropriate Phase II area if PAR is 8 or greater or return to pre- procedure baseline. The post - procedure orders will be as directed. * If PAR score is less than 8 or not return to pre-procedure baseline then patient will follow Phase I monitoring till PAR is reached for Phase II. The Phase I may be done in procedure room or may call to secure a Phase I area. * If naloxone or flumazenil are used for reversal, hold in Phase I for continued monitoring from when last reversal dose was given for a minimum of 60 minutes or longer pending the nurse and/or physician discretion of patient condition before discharge to Phase II. Please call the Sedation Physician to re-evaluate and complete post-note for discharge to Phase II area. Do NOT discharge from procedure sedation or Phase 1 until post- sedation evaluation note is complete by procedure /sedation MD Sedation Discharge Instructions to be given to the patient at discharge to home. The scribe's documentation has been prepared under my direction and personally reviewed by me in its entirety. I confirm that the note above accurately reflects all work, treatment, procedures, and medical decision making performed by me.
[2018-11-18] MEDS: SODIUM CHLORIDE 0.9% 1000ML 1,000 ML IV SCH (21:38)
[2018-11-18] MEDS: PANTOprazole 40 MG TAB PO SCH (22:07)
[2018-11-18] MEDS: levETIRAcetam 500 MG TAB PO SCH (22:08)
[2018-11-18] MEDS: GABAPENTIN 400 MG CAP PO SCH (22:09)
[2018-11-18] MEDS: HYDROmorphone INJ 1 MG/ML SYRINGE IV PRN (22:17)
[2018-11-19] MEDS: ACETAMINOPHEN 325 MG TAB PO SCH ×6 (00:06→23:20)
[2018-11-19] MEDS: ONDANSETRON INJ 2 MG/ML 2 ML VIAL IV PRN ×2 (01:01→14:39)
[2018-11-19] MEDS ORDERED: SODIUM CHLORIDE 0.9% 1000ML 1,000 ML IV ONE (01:09)
[2018-11-19] MEDS: HYDROmorphone INJ 1 MG/ML SYRINGE IV PRN ×3 (04:19→16:27)
[2018-11-19] MEDS: LORazepam 1 MG TAB PO PRN ×2 (06:26→20:33)
[2018-11-19] MEDS: OXYCODONE HCL IR 5 MG TAB (IMMEDIATE RELEASE) PO PRN ×2 (07:39→14:39)
[2018-11-19] MEDS: levETIRAcetam 500 MG TAB PO SCH ×2 (07:42→20:33)
[2018-11-19] MEDS: GABAPENTIN 400 MG CAP PO SCH ×3 (07:43→20:33)
[2018-11-19] MEDS: PANTOprazole 40 MG TAB PO SCH ×2 (07:43→20:33)
[2018-11-19] MEDS: DOCUSATE SODIUM/SENNA 50/8.6MG TAB PO SCH (07:44)
[2018-11-19] MEDS: FEXOFENADINE HCL 180 MG TAB PO SCH (07:44)
[2018-11-19 07:59] LABS: Hemoglobin 10.6 g/dL (12.0-16.0); Mean Corpuscular Hgb Conc 33.1 g/dL (32-36); Mean Corpuscular Volume 95.8 fL (80-100); Mean Platelet Volume 10.2 fL (7.4-10.4); Platelet Count 293 K/uL (130-400); RDW Coefficient of Variation 20.4 % (11.5-14.5); RDW Standard Deviation 71.7 fL (36.4-46.3); Red Blood Count 3.34 M/uL (4.2-5.4)
[2018-11-19 08:07] LABS: INR 1.1 (0.9-1.1); Partial Thromboplastin Ratio 1.2; Partial Thromboplastin Time 33.4 Seconds (21.0-31.0)
[2018-11-19 09:14] LABS: Albumin Level 2.8 gm/dl (3.4-5.0); BUN Creatinine Ratio 12.7 (10-20); Calcium 6.8 mg/dl (8.5-10.1); Creatinine Clr Calc Pharmacy 136.1 ml/min; Est GFR (African American) 136.4; Est GFR (Non-African American) 117.7; Potassium 3.9 mmol/L (3.5-5.1)
[2018-11-19 09:17] LABS: Bilirubin,Total 0.8 mg/dl (0.2-1); Globulin 2.7 gm/dl (2.5-4.0); Total Protein 5.5 gm/dl (6.4-8.2)
--- NOTE | 2018-11-19 09:37 | Orthopedic Consultation ---
Date of Consultation November 19, 2018 Assessment & Plan (1) Fracture, humerus: Fracture amenable to nonoperative treatment at this time. Maintain splint immobilization. Nonweightbearing right upper extremity in sling immobilization. Ice to fracture site. Neurovascular checks. Will need to follow-up in the office in 1 week for repeat x-rays and fracture brace placement. Patient may follow-up with her orthopedic surgeon Dr. Rebollar or myself, [phone]. Thank you for the consultation. History of Present Illness Reason for Consultation: Right humerus fx Attending Physician: oJse Alonso MD History of Present Illness The patient is a 48-year-old female who has a known past medical history of von willebrand disease, seizure disorder, peptic ulcer disease, anxiety, depression, gastroparesis, history of gastrectomy, osteoporosis who presents to [facility] ED secondary to mechanical fall from standing height. She reports that she tripped over her dog's leash subsequently landing on her right shoulder. Admits to pain. Denies numbness tingling to her right upper extremity. In ED CT scan of R humerus reveals mildly displaced and angulated proximal mid diaphyseal fracture of the right humerus with cortical fragment. The patient was admitted for further inpatient observation and treatments and placement. Patient is known to Dr. Rebollar, is to have surgery on her left shoulder. Allergies Allergy/AdvReac Type Severity Reaction Status Date / Time latex Allergy Severe RASH Verified 11/18/18 14:27 tobramycin Allergy Severe BLINDNESS Verified 11/18/18 14:27 ceftriaxone Allergy Intermediate Rash Verified 11/18/18 14:27 Penicillins Allergy Intermediate RASH Verified 11/18/18 14:27 Quinolones Allergy Intermediate RASH Verified 11/18/18 14:27 Sulfa (Sulfonamide Allergy Intermediate HIVES Verified 11/18/18 14:27 Antibiotics) Aminoglycosides Allergy Unknown UNKNOWN Verified 11/18/18 14:27 ciprofloxacin Allergy INSIDE OF Verified 11/18/18 14:27 LIPS BURN & PEEL doxycycline Allergy Hives, Verified 11/18/18 14:27 VOMITING iron dextran complex AdvReac Intermediate SHORT OF Verified 11/18/18 14:27 BREATH W/ HEART RACING lactose AdvReac Intermediate NAUSEA, GI Verified 09/25/18 01:44 UPSET citalopram AdvReac RESTLESS Verified 09/25/18 01:44 Ferric Oxide AdvReac Intermediate HIVES Uncoded 09/25/18 01:44 Home Medications Home Medications Medication Instructions Recorded Confirmed Type albuterol sulfate 2 puff INHALATION QID PRN 01/29/18 11/18/18 History cyclobenzaprine 5 mg PO TID PRN 01/29/18 11/18/18 History fexofenadine 180 mg PO QAM 01/29/18 11/18/18 History furosemide 40 mg PO DIRECTED PRN 01/29/18 11/18/18 History montelukast [Singulair] 10 mg PO QAM PRN 01/29/18 11/18/18 History pantoprazole 40 mg PO BID 01/29/18 11/18/18 History potassium chloride 20 meq PO DIRECTED PRN 01/29/18 11/18/18 History promethazine 25 mg PO Q8 PRN 01/29/18 11/18/18 History levetiracetam [Keppra] 1,500 mg PO BID 07/07/18 11/18/18 History trazodone 50 mg PO HS PRN 07/07/18 11/18/18 History zoledronic wcge-sjnkhghg-dvgbh 5 mg IV YEARLY 07/07/18 11/18/18 History [Reclast] gabapentin 400 mg PO TID 11/18/18 11/18/18 History lorazepam 1 mg PO Q8H PRN 11/18/18 11/18/18 History Patient History Medical History History of hysterectomy (Chronic) Anemia (Chronic) Iron studies- Iron 8 with Ferritin 160s, TIBC low , Transferrin 162, FOBT ordered, Folic acid- Normal, vit b12-114 done 09/25/18 Seizure disorder (Chronic) Alcohol use (Chronic) DVT prophylaxis (Chronic) Anxiety (Chronic) Depression (Chronic) Peptic ulcer disease (Resolved) Von Willebrand disease (Chronic) Hypoparathyroidism (Chronic) Gastroparesis (Chronic) Blindness (Chronic) Surgical History History of percutaneous endoscopic gastrostomy (Chronic) History of hand surgery (Chronic) History of cholecystectomy (Resolved) History of gastrectomy (Chronic) secondary to PUD Family History Father Diabetes Mother Von Willebrand disease Social History Preferred Language: Divehi Communication Ability: Effective Logistics/Shipper Required: No Beliefs That Will Affect Care: None marital status: Current Living Situation: Alone current occupational status: disabled Other Information That Helps Us Care for You: No Feels Safe at Home: Yes Safety Concerns: Feels Safe At This Time Smoking Status: Never smoker Do You Dip or Chew Tobacco: No Hx Alcohol Use: Yes Alcohol type: wine and hard liquor Hx Substance Use: No Review of Systems Review of Systems: All systems reviewed & are unremarkable except as noted in HPI & below Constitutional: as per Subjective / HPI Results & Data Vital Signs (Past 12 Hours) Vital Signs Temp Pulse Pulse Resp BP Pulse Ox 11/19/18 07:04 36.8 C 97 H 18 119/87 95 11/19/18 04:40 123 H 11/19/18 04:19 36.3 C L 111 H 22 113/76 93 11/18/18 22:56 36.6 C 127 H 18 96/67 L 94 11/18/18 22:37 134 H Diagnostic Findings XR shoulder RT min 2V routine CLINICAL HISTORY: Rt shoulder pain s/p fall COMPARISON: None DISCUSSION: There is an oblique fracture involving the humerus at the junction of the proximal and middle one third. There is a vertical component which extends to the level of the humeral neck. On the crosstable lateral view there is 17 mm of maximal displacement. There is no evidence for shoulder dislocation. There is 23 degrees of vertex lateral angulation at the fracture site. IMPRESSION: Displaced angulated oblique fracture of the humerus extending from the humeral neck to the junction of the proximal and middle one third. No evidence of shoulder dislocation CT humerus RT wo con CLINICAL HISTORY: 48 years-old Female presenting with fx. TECHNIQUE: Multidetector CT of the right humerus was performed without the use of intravenous contrast. 3-D volumetric and/or maximum intensity projection (MIP) images were subsequently reconstructed for review. IV contrast: None. One or more dose lowering techniques were used consistent with the principles of ALARA (as low as reasonably achievable), including automatic exposure control, mA or kV adjustment to individual patient size, and/or use of iterative reconstruction. COMPARISON: Right shoulder radiographs from earlier today. CT DOSE (mGy.cm): The estimated cumulative dose is 577.18 mGy.cm. FINDINGS: Security Project Manager topogram: Unremarkable. Fracture of the proximal to mid diaphysis of the right humerus with a predominant transverse component. There is a prominent butterfly fracture fragment along the posterior medial aspect, which measures approximately 5.6 cm in length. And in contact complete split fracture pattern is evident along the bicipital groove, which may extend to the humeral head though not to the articular surface. There is mild apex lateral and posterior angulation. Approximately one half shaft width posterior displacement of the distal fracture fragment. A cortical fracture fragment is displaced within the fracture plane. Evaluation of the soft tissues demonstrates hematoma within the fracture plane. Elbow joint and glenohumeral joints congruent. IMPRESSION: 1. Mildly displaced and mildly angulated proximal to mid diaphyseal fracture of the right humerus with cortical fracture fragments in the fracture plane. 2. Prominent butterfly fracture fragment in the posterior medial soft tissues. 3. Split fracture plane extension into the bicipital groove.
[2018-11-19] MEDS: PROMETHAZINE HCL 12.5 MG in SODIUM CHLORIDE 0.9% 50 ML IV PRN ×2 (10:32→20:33)
[2018-11-19] MEDS ORDERED: HEPARIN 100 UNIT/ML 5ML FLUSH ONE (13:11)
[2018-11-19] MEDS: SODIUM CHLORIDE 0.9% 1000ML 1,000 ML IV SCH (14:40)
--- NOTE | 2018-11-19 18:01 | Hospitalist Progress Note ---
Date of Service November 19, 2018 Assessment & Plan (1) Fall: (2) Fracture, humerus: S/P mechanical fall at home. CT scan of R humerus reveals mildly displaced and angulated proximal mid diaphyseal fracture of the right humerus with cortical fragment Xray of Right shoulder showed displaced angulated oblique fracture of the humerus extending from the humeral neck to the junction of the proximal and middle one third. Ortho on board recommended nonoperative treatment at this time Continue maintaining splint immobilization. Nonweightbearing right upper extremity in sling immobilization. Pain control Follow-up in the office in 1 week for repeat x-rays and fracture brace placement Continue PT/OT Waiting for placement to rehab (3) Gastroparesis: (4) Peptic ulcer disease: Continue PPI Stable (5) Seizure disorder: Continue Keppra and gabapentin Stable (6) Depression: Stable (7) Anxiety: Continue Ativan prn (8) DVT prophylaxis: Will add on Lvenox subq Disposition Waiting for placement to rehab Subjective Pt was seen and examined Lying in bed with no distress Pt said that she is having a lot of pain in her right arm She said that pain is worst with movement She said that pain medication helps Denies any chest pain, palpitation, dizziness and SOB Physical Exam Physical Exam: General- No acute distress Head- atraumatic Eyes- legally blind ENT- oropharynx clear Neck- supple, no JVD Lungs- clear to auscultation Heart- regular rhythm; no murmur Abdomen- normal bowel sounds, soft, nontender Extremities- no calf tenderness, Right upper ext tenderness Neuro- alert, oriented x 3; PERRL, EOMI; no facial palsy; no dysarthria Skin- warm & dry Results & Data Vital Signs (Past 12 Hours) Vital Signs Temp Pulse Pulse Resp BP Pulse Ox 11/19/18 15:19 36.4 C L 103 H 18 118/88 99 11/19/18 11:52 36 C L 104 H 16 117/84 99 11/19/18 07:04 36.8 C 97 H 18 119/87 95
[2018-11-19] MEDS ORDERED: ENOXAPARIN INJ 40 MG/0.4 ML SYR SQ SCH (21:00)
[2018-11-20] MEDS: OXYCODONE HCL IR 5 MG TAB (IMMEDIATE RELEASE) PO PRN ×3 (03:13→17:24)
[2018-11-20] MEDS: ONDANSETRON INJ 2 MG/ML 2 ML VIAL IV PRN (03:16)
[2018-11-20] MEDS: HYDROmorphone INJ 1 MG/ML SYRINGE IV PRN ×3 (04:04→18:40)
[2018-11-20] MEDS: ACETAMINOPHEN 325 MG TAB PO SCH ×3 (05:30→18:42)
[2018-11-20] MEDS: GABAPENTIN 400 MG CAP PO SCH ×3 (08:07→21:03)
[2018-11-20] MEDS: levETIRAcetam 500 MG TAB PO SCH ×2 (08:07→21:03)
[2018-11-20] MEDS: PANTOprazole 40 MG TAB PO SCH ×2 (08:07→21:03)
[2018-11-20] MEDS: DOCUSATE SODIUM/SENNA 50/8.6MG TAB PO SCH (08:07)
[2018-11-20] MEDS: FEXOFENADINE HCL 180 MG TAB PO SCH (08:07)
[2018-11-20] MEDS: LORazepam 1 MG TAB PO PRN ×2 (08:11→18:41)
[2018-11-20] MEDS: PROMETHAZINE HCL 12.5 MG in SODIUM CHLORIDE 0.9% 50 ML IV PRN (08:31)
[2018-11-20] MEDS: HEPARIN 100 UNIT/ML 5ML FLUSH FLUSH PRN ×3 (08:59→18:41)
--- NOTE | 2018-11-20 17:23 | Hospitalist Progress Note ---
Date of Service November 20, 2018 Assessment & Plan (1) Fall: (2) Fracture, humerus: S/P mechanical fall at home. CT scan of R humerus reveals mildly displaced and angulated proximal mid diaphyseal fracture of the right humerus with cortical fragment Xray of Right shoulder showed displaced angulated oblique fracture of the humerus extending from the humeral neck to the junction of the proximal and middle one third. Ortho on board recommended nonoperative treatment at this time Continue maintaining splint immobilization. Nonweightbearing right upper extremity in sling immobilization. Pain control Follow-up in the office in 1 week for repeat x-rays and fracture brace placement Continue PT/OT Waiting for placement to rehab (3) Gastroparesis: (4) Peptic ulcer disease: Continue PPI Stable (5) Seizure disorder: Continue Keppra and gabapentin Stable (6) Sinus tachycardia: Possible related to pain Continue pain control Monitor in Tele If HR does not improves, will start on a low dose beta narciso (7) Depression: Stable (8) Anxiety: Continue Ativan prn (9) DVT prophylaxis: On SCDs Disposition Waiting for placement to rehab Subjective Pt was seen and examined Lying in bed with no distress with aunt at bedside Pt said that she continues to have pain She said that dilaudid helps with the pain She said that her pain is worst with movement She also complaint of pain in his Right foot 2nd toe Denies any chest pain, palpitation, dizziness and SOB Physical Exam Physical Exam: General- No acute distress Head- atraumatic Eyes- legally blind ENT- oropharynx clear Neck- supple, no JVD Lungs- clear to auscultation Heart- regular rhythm; no murmur Abdomen- normal bowel sounds, soft, nontender Extremities- no calf tenderness, Right upper ext tenderness Neuro- alert, oriented x 3; PERRL, EOMI; no facial palsy; no dysarthria Skin- warm & dry Results & Data Vital Signs (Past 12 Hours) Vital Signs Temp Pulse Pulse Resp BP Pulse Ox 11/20/18 15:29 121 H 11/20/18 15:24 36.7 C 110 H 16 104/64 100 11/20/18 12:00 36.8 C 81 19 109/77 92 11/20/18 07:22 36.5 C 110 H 18 107/74 97 11/20/18 07:18 110 H
--- NOTE | 2018-11-20 18:37 | XRay Report ---
XR foot RT min 3V routine CLINICAL HISTORY: tenderness in 2nd toe pain. Edema. COMPARISON: None. DISCUSSION: Generalized degenerative changes throughout. Evidence for prior ankle fusion. Degenerative change of the interphalangeal joints throughout the second through fifth toes. Findings are progressive compared to 2008. There is no evidence for soft tissue swelling. IMPRESSION: 1. Progressive degenerative change primarily of the interphalangeal joints of the second through fift h toes. 2. Operative changes consistent with prior ankle fusion. 3. Osteopenia. 4. The degenerative findings are progressive compared to the prior study of 2007 The above report was generated using voice recognition software. It may contain grammatical, syntax or spelling errors. Electronically signed by: Mango Bonner M.D. 11/20/2018 6:35 PM
[2018-11-21] MEDS: ACETAMINOPHEN 325 MG TAB PO SCH ×5 (00:56→23:59)
--- NOTE | 2018-11-21 00:56 | Consultation Report ---
DATE OF CONSULTATION: 11/20/2018 PERTINENT HISTORY: The patient is seen in followup after she was seen by Dr. Escamilla in consultation regarding her right proximal humerus fracture. He recommended a closed treatment. The patient has a complicated medical history and had a mechanical fall in the right upper extremity. She also has some issues related to rotator cuff tear on the left which she was initially scheduled to have repaired; however, now she has this new issue with the right humerus which superseded the priority of the treatment of the left shoulder. Discussed the patient's care and condition with her and answered all questions. PHYSICAL EXAMINATION: EXTREMITIES: Examination of the right upper extremity demonstrates sling present. Skin is warm, dry and intact. She has ecchymosis and bruising of the right shoulder. She has local edema and limited range of motion. She has tenderness to palpation diffusely at the right proximal humerus. Limited active motion. Radial pulses 2/4. Radial, ulnar and median nerve sensory and motor function are intact in right shoulder. Radiographs and CT scan reviewed demonstrating a midshaft comminuted right humerus fracture. IMPRESSION: Right midshaft humerus fracture with comminution with reasonable alignment. RECOMMENDATIONS: With Dr. Escamilla's initial assessment, we will attempt to treat her in a closed manner. She will continue with sling. Initially, she will follow up in the office and we will get her scheduled to have her Vann type fracture brace fabricated for her. 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 Thank you for the opportunity to consult and care of this patient.
[2018-11-21] MEDS: HYDROmorphone INJ 1 MG/ML SYRINGE IV PRN ×3 (04:56→23:59)
[2018-11-21] MEDS: PROMETHAZINE HCL 12.5 MG in SODIUM CHLORIDE 0.9% 50 ML IV PRN (05:24)
[2018-11-21] MEDS: HEPARIN 100 UNIT/ML 5ML FLUSH FLUSH PRN ×2 (05:45→12:58)
[2018-11-21] MEDS: LORazepam 1 MG TAB PO PRN ×2 (09:09→19:17)
[2018-11-21] MEDS: CYCLOBENZAPRINE HCL 5 MG TAB PO PRN ×2 (09:10→19:17)
[2018-11-21] MEDS: OXYCODONE HCL IR 5 MG TAB (IMMEDIATE RELEASE) PO PRN ×2 (09:10→19:17)
[2018-11-21] MEDS: levETIRAcetam 500 MG TAB PO SCH ×2 (09:10→21:43)
[2018-11-21] MEDS: GABAPENTIN 400 MG CAP PO SCH ×3 (09:11→21:43)
[2018-11-21] MEDS: DOCUSATE SODIUM/SENNA 50/8.6MG TAB PO SCH (09:11)
[2018-11-21] MEDS: PANTOprazole 40 MG TAB PO SCH ×2 (09:11→21:43)
[2018-11-21] MEDS: FEXOFENADINE HCL 180 MG TAB PO SCH (09:12)
--- NOTE | 2018-11-21 18:24 | Hospitalist Progress Note ---
Date of Service November 21, 2018 Assessment & Plan (1) Fall: (2) Fracture, humerus: S/P mechanical fall at home. CT scan of R humerus reveals mildly displaced and angulated proximal mid diaphyseal fracture of the right humerus with cortical fragment Xray of Right shoulder showed displaced angulated oblique fracture of the humerus extending from the humeral neck to the junction of the proximal and middle one third. Ortho on board recommended nonoperative treatment at this time Continue maintaining sling for now Nonweightbearing right upper extremity in sling immobilization. Follow-up in the office in 1 week for repeat x-rays and for Vann type fracture brace fabricated for her. 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 Deleon about DVT px with anticoagulant As per Hematology no anticoagulant (10) DVT prophylaxis: On SCDs (Due to Type 2 Von Willibrand disease) No Anticoagulant as per hematology Disposition Waiting for placement to rehab Subjective Pt was seen and examined Lying in bed with no distress Pt said that pain slightly improves She said that she continues to have pain with movement of the right arm She denies any chest pain, palpitation, dizziness and SOB Physical Exam Physical Exam: General- No acute distress Head- atraumatic Eyes- legally blind ENT- oropharynx clear Neck- supple, no JVD Lungs- clear to auscultation Heart- regular rhythm; no murmur Abdomen- normal bowel sounds, soft, nontender Extremities- no calf tenderness, Right upper ext tenderness with sling on Neuro- alert, oriented x 3; PERRL, EOMI; no facial palsy; no dysarthria Skin- warm & dry Results & Data Vital Signs (Past 12 Hours) Vital Signs Temp Pulse Pulse Resp BP Pulse Ox 11/21/18 15:55 103 H 11/21/18 15:20 36.6 C 55 L 16 102/76 96 11/21/18 08:27 36.8 C 108 H 18 101/70 99 11/21/18 07:00 124 H
[2018-11-21] MEDS ORDERED: HEPARIN SOD 5,000 UNIT/0.5 ML VIAL SQ SCH (21:00)
[2018-11-22] MEDS: HEPARIN 100 UNIT/ML 5ML FLUSH FLUSH PRN ×3 (00:04→22:14)
[2018-11-22] MEDS: ACETAMINOPHEN 325 MG TAB PO SCH ×3 (06:24→18:34)
[2018-11-22] MEDS: HYDROmorphone INJ 1 MG/ML SYRINGE IV PRN ×3 (06:29→18:38)
[2018-11-22] MEDS: OXYCODONE HCL IR 5 MG TAB (IMMEDIATE RELEASE) PO PRN (08:31)
[2018-11-22] MEDS: levETIRAcetam 500 MG TAB PO SCH ×2 (08:31→21:43)
[2018-11-22] MEDS: GABAPENTIN 400 MG CAP PO SCH ×3 (08:31→21:05)
[2018-11-22] MEDS: DOCUSATE SODIUM/SENNA 50/8.6MG TAB PO SCH (08:32)
[2018-11-22] MEDS: FEXOFENADINE HCL 180 MG TAB PO SCH (08:32)
[2018-11-22] MEDS: PANTOprazole 40 MG TAB PO SCH ×2 (08:32→21:05)
--- NOTE | 2018-11-22 11:38 | Progress Note ---
DATE: 11/22/2018 SUBJECTIVE: Hiwot seen at the bedside today. Hospitalist service notes increased swelling in the right hand. They asked us to reevaluate given possible concern for ordering ultrasound, which required removal of splint. OBJECTIVE: Right hand exam does show moderate to significant swelling. The posterior splint is intact, but the Dev wrap does appear to be tight. She can flex and extend the digits, but exam is limited secondary to discomfort. Her forearm compartments are soft. ASSESSMENT: Status post humeral shaft fracture, treated nonoperatively. PLAN: At this point, I feel likely source of her swelling is due to the fracture and that the hand is in a very dependent position. Recommendation for her is elevation of the hand, possibly a Dexter pillow would be helpful as well. I loosened her Dev wrap as this may help decrease the swelling. I will also check a new set of x-rays to make sure fracture has not had interval change. We will elevate the hand strictly over the next 24 hours. If not significantly improved, may consider ultrasound. However, I am concerned performing ultrasound required removal of the splint which will give her significant discomfort. I feel more likely cause of her swelling is simply the hand being in a dependent position. We will continue to follow.
[2018-11-22] MEDS: ONDANSETRON INJ 2 MG/ML 2 ML VIAL IV PRN (11:46)
--- NOTE | 2018-11-22 11:55 | XRay Report ---
XR humerus RT 2V CLINICAL HISTORY: eval fracture COMPARISON: 11/18/2018 DISCUSSION: Comminuted fracture proximal to mid shaft right humerus. Linear components extending to t he proximal right humeral shaft. Angulation is 33 degrees. Moderate soft tissue edema. IMPRESSION: Comminuted ankle fracture proximal to mid shaft right humerus. No major change from the p rior study. The above report was generated using voice recognition software. It may contain grammatical, syntax or spelling errors. Electronically signed by: Mango Bonner M.D. 11/22/2018 11:54 AM
[2018-11-22] MEDS: PROMETHAZINE HCL 12.5 MG in SODIUM CHLORIDE 0.9% 50 ML IV PRN ×2 (13:57→21:42)
--- NOTE | 2018-11-22 18:49 | Hospitalist Progress Note ---
Date of Service November 22, 2018 Assessment & Plan (1) Fall: (2) Fracture, humerus: S/P mechanical fall at home. CT scan of R humerus reveals mildly displaced and angulated proximal mid diaphyseal fracture of the right humerus with cortical fragment Xray of Right shoulder showed displaced angulated oblique fracture of the humerus extending from the humeral neck to the junction of the proximal and middle one third. Ortho on board recommended nonoperative treatment at this time Continue maintaining sling for now Nonweightbearing right upper extremity in sling immobilization. Follow-up in the office in 1 week for repeat x-rays and for Vann type fracture brace fabricated for her. 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 Loosening her Dev wrap by ortho Continue PT/OT Waiting for placement to rehab (3) Swelling of arm: Mostly due to the Right humerus fracture Repeat humerus xray showed Comminuted ankle fracture proximal to mid shaft right humerus. No major change from the prior study. case discussed with Ortho Dr. Hernandez recommended to keep the hand elevates and used of pillow would be helpful If no improvement in the next 24 hrs might consider to get an u/s (that might cause more pain ) Continue monitor (4) Gastroparesis: (5) Peptic ulcer disease: Continue PPI Stable (6) Seizure disorder: Continue Keppra and gabapentin Stable (7) Sinus tachycardia: Possible related to pain Continue pain control If HR remains elevating, will add prn low dose lopressor if BP stable Continue monitor (8) Depression: Stable (9) Anxiety: Continue Ativan prn (10) Von Willebrand disease: Pt has type 2 Von Willibrand disease Case discussed with Hematology Dr. Deleon about DVT px with anticoagulant As per Hematology no anticoagulant (11) DVT prophylaxis: On SCDs (Due to Type 2 Von Willibrand disease) No Anticoagulant as per hematology Disposition Waiting for placement to rehab Subjective Pt was seen and examined Lying in bed complaints of excruciated pain in her right arm Pt said that she feels the the pain is worst today She said that she cannot move her right arm due to the pain She said that she feels the dev wrap is very tight in her arm Her right hand is swelling today Dr. Hernandez from ortho was able to loose the dev wrap Denies any chest pain, palpitation, dizziness and SOB Physical Exam Physical Exam: General- No acute distress Head- atraumatic Eyes- legally blind ENT- oropharynx clear Neck- supple, no JVD Lungs- clear to auscultation Heart- regular rhythm; no murmur Abdomen- normal bowel sounds, soft, nontender Extremities- Right upper ext tenderness with sling on, right hand swelling, mild discoloration around the right dorsal hand area, able to move right hand fingers Neuro- alert, oriented x 3; PERRL, EOMI; no facial palsy; no dysarthria Skin- warm & dry Results & Data Vital Signs (Past 12 Hours) Vital Signs Temp Pulse Pulse Resp BP Pulse Ox 11/22/18 15:15 36.7 C 111 H 20 95/67 L 100 11/22/18 14:56 100 H 11/22/18 11:15 36.6 C 100 H 18 105/74 99 11/22/18 07:34 93 H 11/22/18 07:00 36.5 C 99 H 18 100/71 100
[2018-11-22] MEDS: LORazepam 1 MG TAB PO PRN (21:19)
[2018-11-23] MEDS: ACETAMINOPHEN 325 MG TAB PO SCH ×4 (01:33→18:23)
[2018-11-23] MEDS: HEPARIN 100 UNIT/ML 5ML FLUSH FLUSH PRN ×3 (05:50→23:35)
[2018-11-23] MEDS: HYDROmorphone INJ 1 MG/ML SYRINGE IV PRN ×2 (06:10→22:54)
[2018-11-23 06:38] LABS: BUN Creatinine Ratio 12.2 (10-20); Calcium 7.4 mg/dl (8.5-10.1); Creatinine Clr Calc Pharmacy 133.1 ml/min; Est GFR (African American) 135.4; Est GFR (Non-African American) 116.8; Magnesium 1.9 mg/dl (1.8-2.4); Potassium 3.7 mmol/L (3.5-5.1)
[2018-11-23] MEDS: DOCUSATE SODIUM/SENNA 50/8.6MG TAB PO SCH (09:16)
[2018-11-23] MEDS: FEXOFENADINE HCL 180 MG TAB PO SCH (09:16)
[2018-11-23] MEDS: PANTOprazole 40 MG TAB PO SCH ×2 (09:16→19:57)
[2018-11-23] MEDS: levETIRAcetam 500 MG TAB PO SCH ×2 (09:16→19:57)
[2018-11-23] MEDS: GABAPENTIN 400 MG CAP PO SCH ×3 (09:16→19:58)
[2018-11-23] MEDS: OXYCODONE HCL IR 5 MG TAB (IMMEDIATE RELEASE) PO PRN ×2 (09:21→15:39)
[2018-11-23] MEDS: PROMETHAZINE HCL 12.5 MG in SODIUM CHLORIDE 0.9% 50 ML IV PRN ×2 (10:52→22:54)
[2018-11-23] MEDS: CYCLOBENZAPRINE HCL 5 MG TAB PO PRN (14:29)
--- NOTE | 2018-11-23 16:02 | Progress Note ---
DATE: 11/23/2018 SUBJECTIVE: The patient is a 48-year-old white female who was seen by Dr. Escamilla late last week in consult for a right humeral shaft fracture. He had recommended a coaptation splint at this time with eventual fitting of a Vann brace for the fracture that could be put on in the office. The patient had developed increased swelling over the weekend and the patient was seen by Dr. Hernandez on rounding yesterday. He felt that the source of her swelling in the lower forearm and hand of the right arm was due to fracture and that the hand was in a very dependent position. He recommended elevation of the hand, possibly the Dexter pillow and he had loosening her Dev wrap that may decrease the swelling. The patient at this point in time is tired of dealing with the current cast, at this point in time, I was wondering if she could undergo surgical fixation of the fracture. She states that with some of her other disabilities and comorbidities that she does not want to take the time to wait for the possibility of this not healing and then having to have surgery 3-[address] With her increased swelling, there was a question of doing an ultrasound to rule out for DVT. However, with the review by Dr. Rebollar and by Dr. Hernandez, it was felt that there is less likely chance of DVT and the swelling was more fracture dependent. There was a question of removing the splint and doing an ultrasound, etc. There was some confusion on the patient's family and what was actually going on and the patient was discussed with not knowing which direction they were heading. OBJECTIVE: Currently, the coaptation splint is still on and has been loosened, but she complains of an area in the front portion of that splint that is poking her skin. On palpation of this, I can feel one of the edges of the splint that is the culprit for causing pressure of which then I put some 4 x 3 gauze to pad this further. Her hand is moderately swollen and cool to the touch, although she has good capillary refill. She has limited range of motion of her fingers because of the swelling at this time. She continues to have pain off and on with the slightest motion of the upper extremity at this time as well. ASSESSMENT: Midshaft comminuted humerus fracture, right humerus. PLAN: Continue coaptation splint at this time. The patient has asked me to check with physician this week in our group to see if there is the possibility of ORIF of this fracture, instead of doing a nonoperative treatment. I had mentioned several names of the surgeons that will be here this week and they seem to agree Dr. Quintanilla who will be here on . I will bridge the subject with him and also Dr. Paul and Dr. Rebollar to see if ORIF will be possible. I answered multiple questions from the family and from the patient and at the end of my visit. I believe we are all on the same page and I told her I would report back to her when I found to have more information from the physicians and their surgical schedules and if they felt that if she was a candidate for surgery. Dr. Alonso was present during the visit and is aware of our plans to see if we can plan an ORIF this week if possible. Oncology will see the patient in the AM to assess any other clearance issues. BRYAN
--- NOTE | 2018-11-23 16:35 | Hospitalist Progress Note ---
Date of Service November 23, 2018 Assessment & Plan (1) Fall: (2) Fracture, humerus: S/P mechanical fall at home. CT scan of R humerus reveals mildly displaced and angulated proximal mid diaphyseal fracture of the right humerus with cortical fragment Xray of Right shoulder showed displaced angulated oblique fracture of the humerus extending from the humeral neck to the junction of the proximal and middle one third. Ortho on board recommended nonoperative treatment at this time Continue maintaining sling for now Nonweightbearing right upper extremity in sling immobilization. Follow-up in the office in 1 week for repeat x-rays and for Vann type fracture brace fabricated for her. 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 Loosening her Dev wrap by ortho Continue PT/OT Waiting for placement to rehab 11/23 Continue to have severe pain in the right arm She very frustrated because she does not want to wait around by doing conservative management She would like to proceed with surgical management for the right humerus fracture Ortho Abdulaziz SHEPARD was at bed side discussed options with patient and daughter about conservative management (with the fabricated brace) or surgical management Case discussed with ortho and plan to take her to OR tomorrow for ORIF Pt understands the risks for the surgery with her history of Von Willibrand disease Case discussed with Hematology Dr. Suazo who will see the patient in the morning first before proceeding to surgery Will place a consult for hematology Do not proceed to surgery until getting clearance from Hematology (Ortho made aware) Continue pain management Continue sling for now Will make NPO in am for tentative surgery (3) Swelling of arm: Mostly due to the Right humerus fracture Repeat humerus xray showed Comminuted ankle fracture proximal to mid shaft right humerus. No major change from the prior study. case discussed with Ortho Dr. Hernandez recommended to keep the hand elevates and used of pillow would be helpful If no improvement, might consider to get an u/s (that might cause more pain ) Continue monitor (4) Gastroparesis: (5) Peptic ulcer disease: Continue PPI Stable (6) Seizure disorder: Continue Keppra and gabapentin Stable (7) Sinus tachycardia: Possible related to pain Continue pain control If HR remains elevating, will add prn low dose Lopressor if BP stable Continue monitor (8) Depression: Stable (9) Anxiety: Continue Ativan prn (10) Von Willebrand disease: Pt has type 2 Von Willibrand disease Case discussed with Hematology Dr. Deleon over the weekend about DVT px with anticoagulant. As per Hematology no anticoagulant Pt said that her Hematology is Dr. Lanza Hematology consult Case discussed with Dr. Suazo that will see the patient tomorrow for surgical clearance (11) DVT prophylaxis: On SCDs (Due to Type 2 Von Willibrand disease) No Anticoagulant Disposition Anticipate surgery tomorrow if OK by Hematology Subjective Pt was seen and examined Lying in bed with no distress with daughter at bedside Pt said that she continues to have excruciated pain in her right arm She frustrated because she does not want to wait around by doing conservative management then find out possibility of this not healing and then having to have surgery 3- [address] She said that she wants the option that would heal it the faster Ortho Abdulaziz SHEPARD was at bed side discussed option with family about conservative management (with the fabricated brace) and surgical management Pt said that that to see if another surgeon can do the procedure (ORIF) this week, instead of doing conservative management Denies any chest pain, palpitation, dizziness and SOB Physical Exam Physical Exam: General- No acute distress Head- atraumatic Eyes- legally blind ENT- oropharynx clear Neck- supple, no JVD Lungs- clear to auscultation Heart- regular rhythm; no murmur Abdomen- normal bowel sounds, soft, nontender Extremities- Right upper ext tenderness with sling on, right hand swelling, mild discoloration around the right dorsal hand area, able to move right hand fingers Neuro- alert, oriented x 3; PERRL, EOMI; no facial palsy; no dysarthria Skin- warm & dry Results & Data Vital Signs (Past 12 Hours) Vital Signs Temp Pulse Resp BP Pulse Ox 11/23/18 15:43 36.8 C 63 16 121/87 95 11/23/18 11:51 36.5 C 101 H 16 114/81 100 11/23/18 07:34 36.8 C 104 H 16 99/65 L 97
[2018-11-23] MEDS: LORazepam 1 MG TAB PO PRN (22:54)
[2018-11-24] MEDS: ACETAMINOPHEN 325 MG TAB PO SCH ×5 (01:01→23:58)
[2018-11-24] MEDS: DOCUSATE SODIUM/SENNA 50/8.6MG TAB PO SCH (09:07)
[2018-11-24] MEDS: FEXOFENADINE HCL 180 MG TAB PO SCH (09:07)
[2018-11-24] MEDS: GABAPENTIN 400 MG CAP PO SCH ×4 (09:07→21:00)
[2018-11-24] MEDS: PANTOprazole 40 MG TAB PO SCH ×2 (09:07→21:00)
[2018-11-24] MEDS: levETIRAcetam 500 MG TAB PO SCH ×3 (09:07→20:59)
--- NOTE | 2018-11-24 09:08 | Oncology Consultation ---
Date of Consultation November 24, 2018 Assessment & Plan (1) Von Willebrand disease: We will plan to administer prophylactic Humate-P prior to surgery and then every 12-24 hours for the next 1-2 days, depending on blood loss. Unfortunately, we do not have the ability to follow vWF activity or FVIII levels in real time. Her PTT was prolonged and that is at least a very rough estimate of her activity. I asked Dr. Alonso to order a PTT prior to her getting factor today. She should receive 60 IU/kg of Humate-P about 1 hour prior to surgery. From there, we will dose her with 30 IU/kg of Humate-P every 12-24 hours as needed for the next 1-2 days. If her PTT is elevated, we should check levels twice a day, prior to her planned doses of Humate. Present on Admission?: Yes History of Present Illness Reason for Consultation: Type II von Willebrand's disease Attending Physician: Jose Alonso MD History of Present Illness Ms. Palomino is a 48 year old woman with a history of type II von Willebrand's disease. Her most recent ristocetin co-factor was in July and was <20, with a PTT of >200. She has required treatment with factor replacement in the past for surgeries and has done well with it. She fell last week while walking her dog, resulting in a right humeral fracture. She was initially managed conservatively, but now the plan is for operative internal fixation. We are consulted today to advise regarding dosing of her factor replacement. She is sore from her fracture and is looking forward to surgery. She denies any gross bleeding anywhere. However, she has a long-standing history of easy bleeding and bruising. Allergies Allergy/AdvReac Type Severity Reaction Status Date / Time latex Allergy Severe RASH Verified 11/18/18 14:27 tobramycin Allergy Severe BLINDNESS Verified 11/18/18 14:27 ceftriaxone Allergy Intermediate Rash Verified 11/18/18 14:27 Penicillins Allergy Intermediate RASH Verified 11/18/18 14:27 Quinolones Allergy Intermediate RASH Verified 11/18/18 14:27 Sulfa (Sulfonamide Allergy Intermediate HIVES Verified 11/18/18 14:27 Antibiotics) Aminoglycosides Allergy Unknown UNKNOWN Verified 11/18/18 14:27 ciprofloxacin Allergy INSIDE OF Verified 11/18/18 14:27 LIPS BURN & PEEL doxycycline Allergy Hives, Verified 11/18/18 14:27 VOMITING iron dextran complex AdvReac Intermediate SHORT OF Verified 11/18/18 14:27 BREATH W/ HEART RACING lactose AdvReac Intermediate NAUSEA, GI Verified 09/25/18 01:44 UPSET citalopram AdvReac RESTLESS Verified 09/25/18 01:44 Ferric Oxide AdvReac Intermediate HIVES Uncoded 09/25/18 01:44 Home Medications Home Medications Medication Instructions Recorded Confirmed Type albuterol sulfate 2 puff INHALATION QID PRN 01/29/18 11/18/18 History cyclobenzaprine 5 mg PO TID PRN 01/29/18 11/18/18 History fexofenadine 180 mg PO QAM 01/29/18 11/18/18 History furosemide 40 mg PO DIRECTED PRN 01/29/18 11/18/18 History montelukast [Singulair] 10 mg PO QAM PRN 01/29/18 11/18/18 History pantoprazole 40 mg PO BID 01/29/18 11/18/18 History potassium chloride 20 meq PO DIRECTED PRN 01/29/18 11/18/18 History promethazine 25 mg PO Q8 PRN 01/29/18 11/18/18 History levetiracetam [Keppra] 1,500 mg PO BID 07/07/18 11/18/18 History trazodone 50 mg PO HS PRN 07/07/18 11/18/18 History zoledronic vmeo-kermyjmo-noudi 5 mg IV YEARLY 07/07/18 11/18/18 History [Reclast] gabapentin 400 mg PO TID 11/18/18 11/18/18 History lorazepam 1 mg PO Q8H PRN 11/18/18 11/18/18 History Patient History Medical History History of hysterectomy (Chronic) Anemia (Chronic) Iron studies- Iron 8 with Ferritin 160s, TIBC low , Transferrin 162, FOBT ordered, Folic acid- Normal, vit b12-114 done 09/25/18 Seizure disorder (Chronic) Alcohol use (Chronic) DVT prophylaxis (Chronic) Anxiety (Chronic) Depression (Chronic) Peptic ulcer disease (Resolved) Von Willebrand disease (Chronic) Hypoparathyroidism (Chronic) Gastroparesis (Chronic) Blindness (Chronic) Surgical History History of percutaneous endoscopic gastrostomy (Chronic) History of hand surgery (Chronic) History of cholecystectomy (Resolved) History of gastrectomy (Chronic) secondary to PUD Family History Father Diabetes Mother Von Willebrand disease Social History Preferred Language: Ecuadorean Communication Ability: Effective 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 Beliefs That Will Affect Care: None marital status: Current Living Situation: Alone current occupational status: disabled Other Information That Helps Us Care for You: No Feels Safe at Home: Yes Safety Concerns: Feels Safe At This Time Smoking Status: Never smoker Do You Dip or Chew Tobacco: No Hx Alcohol Use: Yes Alcohol type: wine and hard liquor Hx Substance Use: No 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 Ear, Nose, Mouth, Throat: no epistaxis and no bleeding gums Respiratory: no cough and no dyspnea Cardiovascular: no chest pain and no edema Gastrointestinal: no nausea and no blood in stools Genitourinary: no hematuria Musculoskeletal: Right upper arm pain from her fracture Neurologic: no dizziness and no headache(s) Hematologic / Lymphatic: + easy bleeding and + easy bruising Physical Exam Constitutional: well developed and comfortable; no acute distress ENMT: external ear and nose normal, oropharynx normal Respiratory: normal respiratory effort, lungs clear to auscultation Cardiovascular: RRR, no murmur, no edema Gastrointestinal (Abdomen): normal bowel sounds, soft, nontender, no hepatosplenomegaly Musculoskeletal: Her right arm is in a sling with some edema of her hand on that side Skin: no rashes, warm and dry scattered bruises attributable to her fall Psychiatric: A+Ox3, euthymic affect Results & Data Vital Signs (Past 12 Hours) Vital Signs Temp Pulse Pulse Resp BP Pulse Ox 11/24/18 07:37 85 11/24/18 07:32 36.5 C 82 18 114/82 100 11/24/18 04:39 36.7 C 91 H 18 103/73 97 11/24/18 01:24 126 H 11/23/18 23:55 37.1 C 109 H 18 116/87 99 Laboratory Results Her most recent vWD panel was in July. The Factor VIII level couldn't be run. The ristocetin cofactor was <20 and her vWF antigen level was low-normal at 55. Her PTT at that time was >200, though it was close to normal on 11/19/18.
[2018-11-24] MEDS: HYDROmorphone INJ 1 MG/ML SYRINGE IV PRN ×4 (09:46→18:48)
[2018-11-24] MEDS: PROMETHAZINE HCL 12.5 MG in SODIUM CHLORIDE 0.9% 50 ML IV PRN ×2 (10:27→22:18)
[2018-11-24 10:50] LABS: Partial Thromboplastin Time 28.3 Seconds (21.0-31.0)
[2018-11-24] MEDS ORDERED: FACTOR 8/HUMATE-P/ADVATE ONE (13:30)
[2018-11-24] MEDS ORDERED: [UNRECOGNIZED DRUG - MIXTURE] IV ONE (14:00)
--- NOTE | 2018-11-24 14:10 | Anesthesiology Consultation ---
Date of Service November 24, 2018 Assessment & Plan Chart Review Chart Review: Acceptable Risk for Surgery Consults Requested none History Surgery Operation Date: 11/24/18 07:00 Proposed Procedures p Open Reduction Internal Fixation Right Humeral Fracture - Abdiaziz Quintanilla MD Height/Weight Height: 5 ft 5 in Weight: 62.2 kg Allergies Allergy/AdvReac Type Severity Reaction Status Date / Time latex Allergy Severe RASH Verified 11/18/18 14:27 tobramycin Allergy Severe BLINDNESS Verified 11/18/18 14:27 ceftriaxone Allergy Intermediate Rash Verified 11/18/18 14:27 Penicillins Allergy Intermediate RASH Verified 11/18/18 14:27 Quinolones Allergy Intermediate RASH Verified 11/18/18 14:27 Sulfa (Sulfonamide Allergy Intermediate HIVES Verified 11/18/18 14:27 Antibiotics) Aminoglycosides Allergy Unknown UNKNOWN Verified 11/18/18 14:27 ciprofloxacin Allergy INSIDE OF Verified 11/18/18 14:27 LIPS BURN & PEEL doxycycline Allergy Hives, Verified 11/18/18 14:27 VOMITING iron dextran complex AdvReac Intermediate SHORT OF Verified 11/18/18 14:27 BREATH W/ HEART RACING lactose AdvReac Intermediate NAUSEA, GI Verified 09/25/18 01:44 UPSET citalopram AdvReac RESTLESS Verified 09/25/18 01:44 Ferric Oxide AdvReac Intermediate HIVES Uncoded 09/25/18 01:44 Medications Home Medications Medication Instructions Recorded Confirmed Last Taken albuterol sulfate 2 puff INHALATION QID PRN 01/29/18 11/18/18 Unknown cyclobenzaprine 5 mg PO TID PRN 01/29/18 11/18/18 11/17/18 fexofenadine 180 mg PO QAM 01/29/18 11/18/18 11/17/18 furosemide 40 mg PO DIRECTED PRN 01/29/18 11/18/18 11/16/18 montelukast [Singulair] 10 mg PO QAM PRN 01/29/18 11/18/18 Unknown pantoprazole 40 mg PO BID 01/29/18 11/18/18 11/17/18 potassium chloride 20 meq PO DIRECTED PRN 01/29/18 11/18/18 11/16/18 promethazine 25 mg PO Q8 PRN 01/29/18 11/18/18 11/17/18 levetiracetam [Keppra] 1,500 mg PO BID 07/07/18 11/18/18 11/17/18 trazodone 50 mg PO HS PRN 07/07/18 11/18/18 11/15/18 zoledronic jzjk-gqrzweda-[id number] 5 mg IV YEARLY 07/07/18 11/18/18 Unknown [Reclast] gabapentin 400 mg PO TID 11/18/18 11/18/18 11/17/18 lorazepam 1 mg PO Q8H PRN 11/18/18 11/18/18 11/17/18 Active Medications Generic Name Dose Route Start Last Admin Trade Name Freq PRN Reason Stop Dose Admin Acetaminophen 650 mg 11/19/18 00:00 11/24/18 11:28 Tylenol PO 12/19/18 00:00 Not Given Q6H DENIS Cyclobenzaprine HCl 5 mg 11/18/18 21:00 11/23/18 14:29 Flexeril PO 12/18/18 20:59 5 mg TID PRN Administration Muscle Spasm Fexofenadine HCl 180 mg 11/19/18 09:00 11/24/18 09:07 Maame PO 12/19/18 08:59 Not Given QAM [facility] Gabapentin 400 mg 11/18/18 21:00 11/24/18 13:50 Neurontin PO 12/18/18 20:59 Not Given TID [facility] Heparin Sodium (Porcine) 5 ml 11/19/18 14:30 11/23/18 23:35 Heparin Sod 100 Unit/Ml Flush FLUSH 12/19/18 14:29 5 ml PRN PRN Administration Flush Hydromorphone HCl 0.5 mg 11/21/18 08:33 11/24/18 09:46 Dilaudid IV 12/02/18 20:59 0.5 mg Q4H PRN Administration Severe Pain Promethazine HCl 12.5 mg/ 50.5 mls @ 202 mls/hr 11/19/18 08:52 11/24/18 11:06 Sodium Chloride IV 12/19/18 08:51 Infused Q8H PRN Infusion Nausea And Vomiting Levetiracetam 1,500 mg 11/18/18 21:00 11/24/18 10:32 Keppra PO 12/18/18 20:59 1,500 mg BID DENIS Administration Lorazepam 1 mg 11/18/18 21:00 11/23/18 22:54 Ativan PO 12/18/18 20:59 1 mg Q8H PRN Administration Anxiety Ondansetron HCl 4 mg 11/18/18 21:00 11/22/18 11:46 Zofran IV 12/18/18 20:59 4 mg Q6H PRN Administration Nausea Oxycodone HCl 5 mg 11/18/18 21:00 11/23/18 15:39 Roxicodone Immediate Rel PO 12/02/18 20:59 5 mg Q6H PRN Administration Moderate Pain Pantoprazole Sodium 40 mg 11/18/18 21:00 11/24/18 09:07 Protonix PO 12/18/18 20:59 Not Given BID DENIS Senna/Docusate Sodium 1 tab 11/19/18 09:00 11/24/18 09:07 Senokot S PO 12/19/18 08:59 Not Given QAM DENIS NPO Date Last Intake of Fluids: 11/23/18 Time Last Intake of Fluids: 22:00 Last Intake of Fluids Comment: Sip with Keppra Date Last Intake of Solids: 11/23/18 Time Last Intake of Solids: 22:00 Past Medical History Medical History Anemia (Chronic) Iron studies- Iron 8 with Ferritin 160s, TIBC low , Transferrin 162, FOBT ordered, Folic acid- Normal, vit b12-114 done 09/25/18 Seizure disorder (Chronic) Alcohol use (Chronic) DVT prophylaxis (Chronic) Anxiety (Chronic) Depression (Chronic) Peptic ulcer disease (Resolved) Von Willebrand disease (Chronic) Hypoparathyroidism (Chronic) Gastroparesis (Chronic) Blindness (Chronic) H/O: hysterectomy (Acute) History of hysterectomy (Acute) Past Family History Family History Father Diabetes Mother Von Willebrand disease Past Surgical History Surgical History History of percutaneous endoscopic gastrostomy (Chronic) History of hand surgery (Chronic) History of cholecystectomy (Resolved) History of gastrectomy (Chronic) secondary to PUD Social History Smoking Status: Never smoker Do You Dip or Chew Tobacco: No Hx Alcohol Use: Yes Alcohol type: wine and hard liquor alcohol intake frequency: 3 or more drinks per day Alcohol Intake Frequency Comment: ~ 750 ml/day of vine; vodka "now and then" Hx Substance Use: No substance use type: prescription drug Physical Exam Vital Signs Last Vital Signs Temp 37 C 11/24/18 14:01 Pulse 94 H 11/24/18 14:01 Resp 20 11/24/18 14:01 BP 129/79 11/24/18 14:01 Pulse Ox 100 11/24/18 14:01 Testing Laboratory Results 11/19/18 07:21 11/23/18 05:53 PT 11.0 Seconds (9.0-12.0) 11/19/18 07:21 INR 1.1 (0.9-1.1) 11/19/18 07:21 APTT 28.3 Seconds (21.0-31.0) 11/24/18 10:32
[2018-11-24] MEDS ORDERED: PROPOFOL IV EMULSION 10 MG/ML 20 ML VIAL IV ONE (14:11)
[2018-11-24] MEDS ORDERED: MIDAZOLAM HCL 1 MG/ML 2ML VIAL ONE (14:11)
[2018-11-24] MEDS ORDERED: ONDANSETRON INJ 2 MG/ML 2 ML VIAL ONE (14:11)
[2018-11-24] MEDS ORDERED: LIDOCAINE HCL 2% 2 ML VIAL/AMP(20MG/ML) INFIL ONE (14:11)
[2018-11-24] MEDS ORDERED: DEXAMETHASONE SOD INJ 4 MG/ML VIAL ONE (14:11)
[2018-11-24] MEDS ORDERED: fentaNYL citrate 100 MCG/2 ML VIAL ONE (14:12)
--- NOTE | 2018-11-24 15:09 | History & Physical Bridge Note ---
Date of Service November 24, 2018 History & Physical Bridge Note I have examined the patient, reviewed the History & Physical and in the interval since the performance of the History & Physical I have noted the following changes of clinical significance: no changes noted
[2018-11-24] MEDS ORDERED: BUPIVACAINE 0.5 % 5 MG/1 ML MPF 30ML VIAL ONE (15:13)
--- NOTE | 2018-11-24 15:23 | Hospitalist Progress Note ---
Date of Service November 24, 2018 Assessment & Plan (1) Fall: (2) Fracture, humerus: S/P mechanical fall at home. CT scan of R humerus reveals mildly displaced and angulated proximal mid diaphyseal fracture of the right humerus with cortical fragment Xray of Right shoulder showed displaced angulated oblique fracture of the humerus extending from the humeral neck to the junction of the proximal and middle one third. Ortho on board recommended nonoperative treatment at this time Continue maintaining sling for now Nonweightbearing right upper extremity in sling immobilization. Follow-up in the office in 1 week for repeat x-rays and for Vann type fracture brace fabricated for her. Continue Pain control and avoid any anti-inflammatories to helper/driver in the healing process as per ortho case discussed today for the right swelling and increase pain in Right arm Repeat Xray today done showed no major change from the prior study. Loosening her Dev wrap by ortho Continue PT/OT Waiting for placement to rehab 11/24 Continue to have severe pain in the right arm She very frustrated yesterday because she does not want to wait around by doing conservative management She would like to proceed with surgical management for the right humerus fracture Ortho Abdulaziz SHEPARD was at bed side discussed options with patient and daughter about conservative management (with the fabricated brace) or surgical management Case discussed with ortho and plan to take her to OR for ORIF today Pt understands the risks for the surgery with her history of Von Willibrand disease Hematology consult Case discussed with Hematology Dr. Suazo plan to administer prophylactic Humate-P prior to surgery and then every 12-24 hours for the next 1-2 days, depending on blood loss. Will monitor PTT Continue pain management Continue sling for now Keep NPO for surgery later (3) Swelling of arm: Mostly due to the Right humerus fracture Repeat humerus xray showed Comminuted ankle fracture proximal to mid shaft right humerus. No major change from the prior study. case discussed with Ortho Dr. Hernandez recommended to keep the hand elevates and used of pillow would be helpful Swelling improves today Continue monitor (4) Gastroparesis: (5) Peptic ulcer disease: Continue PPI Stable (6) Seizure disorder: Continue Keppra and gabapentin Stable (7) Sinus tachycardia: Possible related to pain Continue pain control If HR remains improves Continue monitor (8) Depression: Stable (9) Anxiety: Continue Ativan prn (10) Von Willebrand disease: Pt has type 2 Von Willibrand disease Case discussed with Hematology Dr. Deleon over the weekend about DVT px with anticoagulant. As per Hematology no anticoagulant Pt said that her Hematology is Dr. Lanza Hematology consult Case discussed with Dr. Suazo this morning Will administer prophylactic Humate-P prior to surgery and then every 12-24 hours for the next 1-2 days, depending on blood loss. Monitor PTT daily (11) DVT prophylaxis: On SCDs (Due to Type 2 Von Willibrand disease) No Anticoagulant Disposition Plan for ORIF surgery today by ortho Subjective Pt was seen and and examined Lying in bed with no distress Pt said that pain is the same She said that she is able to move her right arm better Swelling in the right arm improves Denies any chest pain, palpitation, dizziness and SOB Physical Exam Physical Exam: General- No acute distress Head- atraumatic Eyes- legally blind ENT- oropharynx clear Neck- supple, no JVD Lungs- clear to auscultation Heart- regular rhythm; no murmur Abdomen- normal bowel sounds, soft, nontender Extremities- Right upper ext tenderness with sling on, right hand swelling slightly improves, mild discoloration around the right dorsal hand area, able to move right hand fingers Neuro- alert, oriented x 3; PERRL, EOMI; no facial palsy; no dysarthria Skin- warm & dry Results & Data Vital Signs (Past 12 Hours) Vital Signs Temp Pulse Pulse Resp BP Pulse Ox 11/24/18 14:01 37 C 94 H 20 129/79 100 11/24/18 11:16 37.1 C 104 H 18 115/82 100 11/24/18 07:37 85 11/24/18 07:32 36.5 C 82 18 114/82 100 11/24/18 04:39 36.7 C 91 H 18 103/73 97
[2018-11-24] MEDS ORDERED: VANCOMYCIN CONSULT ACTIVE PRN ×2 (15:37→19:13)
[2018-11-24] MEDS ORDERED: VANCOMYCIN HCL 1,000 MG/270 ML BAG IV ONE (15:45)
[2018-11-24] MEDS ORDERED: CLINDAMYCIN 600 MG/54 ML BAG IV SCH (16:30)
[2018-11-24] MEDS ORDERED: ROCURONIUM BROMIDE 10 MG/ML 5 ML VIAL ONE ×5 (16:37)
[2018-11-24] MEDS ORDERED: PROMETHAZINE HCL INJ 25 MG/ML 1 ML VIAL ONE (16:45)
--- NOTE | 2018-11-24 17:35 | Fluoroscopy Report ---
FL humerus RT 2V CLINICAL HISTORY: RT ORIF HUMERUS COMPARISON STUDY: Right humerus 11/22/2018. FLUOROSCOPY TIME: 1 minute and 20 seconds. FINDINGS: 5 fluoroscopic spot images of the proximal right humerus were submitted. Status post internet manager al fixation of the proximal shaft fracture of the right humerus with a cortical plate and screws. The hardware appears intact. Alignment is near-anatomic. IMPRESSION: Fluoroscopy provided for internal fixation of a proximal right humerus fracture. Electronically signed by: Hadley Soni M.D. 11/24/2018 5:34 PM
[2018-11-24] MEDS ORDERED: CLINDAMYCIN PHOS 300 MG/2 ML VIAL ONE (17:36)
--- NOTE | 2018-11-24 17:41 | Operative Report ---
Post Operative Report Pre & Post Diagnosis Operation Date: 11/24/18 07:00 Pre-Op Diagnosis: Midshaft comminuted humerus fracture, right humerus. Post-Op Diagnosis: Midshaft comminuted humerus fracture, right humerus. Procedure Operation Date: 11/24/18 07:00 Actual Procedures p Open Reduction Internal Fixation Right Humeral Fracture(Right) - Abdiaziz Quintanilla MD Surgeon Abdiaziz Quintanilla MD Upholstery Trimmer Jaspal Saha PA-C Estimated Blood Loss 100 Findings Consistent with Post-Op Diagnosis Specimens none Drains none Anesthesia Type General Complications none Disposition Accompanied Patient To Recovery: No Disposition: Recovery Room Indications The patient is a 48-year-old female with significant osteoporosis. She sustained an injury to the right upper extremity had a angulated proximal humerus fracture with extension up proximally. She continued to have significant pain despite attempts at conservative treatment. She would like to proceed with open reduction internal fixation. Description of Procedure Risks, benefits and alternatives to surgery including, but not limited to, infection DVT, pain, stiffness, need for revision surgery, failure to relieve all symptoms, damage to blood vessels, damage to nerves, risk of anesthesia were discussed with the patient and they wished to proceed. The patient was identified. Laterality was confirmed and marked. The patient received a preoperative antibiotic as well as an interscalene block. They were transferred to the operating room and placed in the supine position and induced into general endotracheal anesthesia per the anesthesia staff. The arm was placed on a hand table. All pressure points were well padded. We confirmed that we're able to achieve proper visualization of the fracture under fluoroscopy the arm was then prepped and draped in the usual standard manner with ChloraPrep. I made a longitudinal incision just lateral to the coracoid, sharply incising through the skin and utilizing Bovie electrocautery to achieve hemostasis. I identified the cephalic vein and mobilized it laterally with the deltoid. I mobilize the pectoralis and mobilize this medially releasing a small portion of the upper border of the pec tendon to improve visualization. I then identified and mobilized the conjoined tendon. I identified the long head of the biceps t endon. There was significant comminution in the junction of the mid to proximal third. I elevated a portion of the deltoid insertion of the lateral aspect of the humerus to facilitate placement of the plate. Holding traction on the arm I then reduced the fracture. I then positioned a 8 hole size Synthes proximal humerus locking plate into position. I placed a nonlocking screw into an oblong hole distally and adjusted the height of the plate as necessary. I then placed another nonlocking screw proximally into the humeral shaft. I then confirmed reduction on AP and lateral views. I then placed 2 locking screws distally. I placed another locking screw proximally into the diaphysis. I then lag 1 of the butterfly fragments into the plate. There was another butterfly fragment that was more posterior that I was not able to capture with a lag screw due to its position. I then placed additional locking screws proximally into the humeral head. I then took the arm through live fluoroscopy to ensure that we maintained good reduction and plate placement and that I was satisfied with the reduction as well as the screw lengths. I thoroughly irrigated the wound. The deltoid was repaired down to the plate as well as 2 portion of the pec tendon. The subcutaneous tissue was closed with interrupted 2-0 Vicryl suture. The skin was closed with chito. A sterile dressing was applied. A sling was placed. All needle and sponge counts were correct at the end of the procedure. The patient was transferred to the PACU in stable condition without apparent complication. The PA-C was necessary for assistance with procedure for assistance in positioning, I attest to the content of the Intraoperative Record and any orders documented therein. Any exceptions are noted below.
[2018-11-24] MEDS ORDERED: HYDROmorphone INJ 2 MG/ML SYR/VIAL IV PRN (18:31)
[2018-11-24] MEDS ORDERED: ATROPINE SULFATE 0.1 MG/ML 10ML SYR IV PRN (18:31)
[2018-11-24] MEDS ORDERED: KETOROLAC 30 MG/ML VIAL IV PRN (18:31)
[2018-11-24] MEDS ORDERED: ONDANSETRON INJ 2 MG/ML 2 ML VIAL IV PRN (18:31)
[2018-11-24] MEDS: ONDANSETRON INJ 2 MG/ML 2 ML VIAL IV PRN (18:39)
--- NOTE | 2018-11-24 19:07 | Anesthesiology Progress Note ---
Date of Service November 24, 2018 Anesthesia Post Procedure Vital Signs Vital Signs: Temp Pulse Pulse Pulse Resp BP Pulse Ox 11/24/18 19:00 36.4 C L 101 H 20 116/78 96 11/24/18 18:50 36.4 C L 101 H 21 97/62 L 97 11/24/18 18:40 36.7 C 109 H 14 97/64 L 97 11/24/18 18:30 36.7 C 117 H 15 97/67 L 98 11/24/18 18:20 36.7 C 126 H 14 88/69 L 100 11/24/18 18:10 36.7 C 124 H 16 95/68 L 100 11/24/18 14:01 37 C 94 H 20 129/79 100 11/24/18 11:16 37.1 C 104 H 18 115/82 100 11/24/18 07:37 85 11/24/18 07:32 36.5 C 82 18 114/82 100 11/24/18 04:39 36.7 C 91 H 18 103/73 97 11/24/18 01:24 126 H 11/23/18 23:55 37.1 C 109 H 18 116/87 99 11/23/18 20:13 36.9 C 115 H 18 108/76 99 Pain Intensity Right Arm: Pain Intensity: 5 Transfer of Care Handoff Completed per policy Notes Mental Status: alert / awake / arousable Patient Amnestic to Procedure: Yes Nausea / Vomiting: adequately controlled Pain: adequately controlled Airway Patency, RR, SpO2: stable & adequate BP & HR: stable & adequate Hydration State: stable & adequate Anesthetic Complications: no major complications apparent
[2018-11-24] MEDS ORDERED: MAGNESIUM HYDROXIDE SUSP 30 ML UDC PO PRN (19:13)
[2018-11-24] MEDS ORDERED: NALOXONE HCL 0.4 MG/1 ML VIAL/CARP IV PRN (19:13)
[2018-11-24] MEDS ORDERED: BISACODYL 10 MG SUPP PR PRN (19:13)
[2018-11-24] MEDS: LORazepam 1 MG TAB PO PRN (19:54)
[2018-11-24] MEDS: OXYCODONE HCL IR 5 MG TAB (IMMEDIATE RELEASE) PO PRN (20:58)
[2018-11-24] MEDS: SODIUM CHLORIDE 0.9% 1000ML 1,000 ML IV SCH (20:58)
[2018-11-24] MEDS: DOCUSATE SODIUM 100 MG CAP PO SCH (21:02)
[2018-11-24] MEDS: SENNA 8.6 MG TAB PO SCH (21:29)
[2018-11-25] MEDS ORDERED: VANCOMYCIN HCL 1,000 MG in SODIUM CHLORIDE 0.9% 250 ML IV SCH (04:00)
[2018-11-25] MEDS: HYDROmorphone INJ 1 MG/ML SYRINGE IV PRN ×3 (06:03→17:37)
[2018-11-25] MEDS: SODIUM CHLORIDE 0.9% 1000ML 1,000 ML IV SCH (06:03)
[2018-11-25] MEDS: ACETAMINOPHEN 325 MG TAB PO SCH ×4 (06:04→23:20)
[2018-11-25 06:27] LABS: Hematocrit (blood only) 24.1 % (37-47); Hemoglobin 8.1 g/dL (12.0-16.0); Mean Corpuscular Hgb Conc 33.6 g/dL (32-36); Mean Corpuscular Volume 93.8 fL (80-100); Mean Platelet Volume 11.9 fL (7.4-10.4); Platelet Count 223 K/uL (130-400); RDW Coefficient of Variation 21.1 % (11.5-14.5); Red Blood Count 2.57 M/uL (4.2-5.4); White Blood Count 7.43 K/uL (4.8-10.8)
[2018-11-25] MEDS: HEPARIN 100 UNIT/ML 5ML FLUSH FLUSH PRN ×4 (06:28→22:30)
[2018-11-25 06:39] LABS: Partial Thromboplastin Ratio 1.1; Partial Thromboplastin Time 28.8 Seconds (21.0-31.0)
[2018-11-25 07:00] LABS: BUN Creatinine Ratio 12.8 (10-20); Calcium 7.6 mg/dl (8.5-10.1); Creatinine Clr Calc Pharmacy 127.6 ml/min; Est GFR (African American) 133.5; Est GFR (Non-African American) 115.2; Potassium 4.1 mmol/L (3.5-5.1)
--- NOTE | 2018-11-25 08:11 | Orthopedic Progress Note ---
Date of Service November 25, 2018 Assessment & Plan (1) Fracture, humerus: POD 1 ORIF Humerus Fx NWB RUE Sling to RUE;Ice to surgical sight. Elevation of arm as best as possible Plan for dressing change tomorrow. Subjective POD 1 s/p ORIF Right Humerus Pt is awake and alert this AM. Sitting up in bed. She states her arm feels a lot better than she thought it would. Pain controlled presently. No complaints. Physical Exam Physical Exam: Dressings C/D/I. Swelling appears to be a bit less in the hand this AM. Moving all of her fingers well. Wrist ROM intact but "a little stiff" this AM. Cap refill < 2seconds. Slight decrease in sensation which she had prior. Results & Data Vital Signs (Past 12 Hours) Vital Signs Temp Pulse Pulse Resp BP Pulse Ox 11/25/18 07:38 94 H 11/25/18 07:35 36.5 C 68 19 110/77 95 11/25/18 05:46 107 H 19 109/77 100 11/25/18 03:46 36.5 C 101 H 114/81 97 11/25/18 00:54 112 H 11/24/18 23:00 36.4 C L 119 H 18 109/76 100
[2018-11-25] MEDS: PROMETHAZINE HCL 12.5 MG in SODIUM CHLORIDE 0.9% 50 ML IV PRN (08:22)
[2018-11-25] MEDS: GABAPENTIN 400 MG CAP PO SCH ×3 (08:23→21:21)
[2018-11-25] MEDS: DOCUSATE SODIUM/SENNA 50/8.6MG TAB PO SCH (08:23)
[2018-11-25] MEDS: PANTOprazole 40 MG TAB PO SCH ×2 (08:23→21:21)
[2018-11-25] MEDS: FEXOFENADINE HCL 180 MG TAB PO SCH (08:23)
[2018-11-25] MEDS: levETIRAcetam 500 MG TAB PO SCH ×2 (08:23→21:19)
[2018-11-25] MEDS: DOCUSATE SODIUM 100 MG CAP PO SCH ×2 (08:24→21:21)
[2018-11-25] MEDS: MULTIVITAMIN TAB PO SCH (08:24)
--- NOTE | 2018-11-25 10:17 | Anesthesiology Progress Note ---
Date of Service November 25, 2018 Anesthesia Post Procedure Vital Signs Vital Signs: Temp Pulse Pulse Pulse Resp BP BP 11/25/18 07:38 94 H 11/25/18 07:35 36.5 C 68 19 110/77 11/25/18 05:46 107 H 19 109/77 11/25/18 03:46 36.5 C 101 H 114/81 11/25/18 00:54 112 H 11/24/18 23:00 36.4 C L 119 H 18 109/76 11/24/18 19:33 36.5 C 111 H 18 106/74 11/24/18 19:00 36.4 C L 101 H 20 116/78 11/24/18 18:50 36.4 C L 101 H 21 97/62 L 11/24/18 18:40 36.7 C 109 H 14 97/64 L 11/24/18 18:30 36.7 C 117 H 15 97/67 L 11/24/18 18:20 36.7 C 126 H 14 88/69 L 11/24/18 18:10 36.7 C 124 H 16 95/68 L 11/24/18 14:01 37 C 94 H 20 129/79 11/24/18 11:16 37.1 C 104 H 18 115/82 Pulse Ox 11/25/18 07:38 11/25/18 07:35 95 11/25/18 05:46 100 11/25/18 03:46 97 11/25/18 00:54 11/24/18 23:00 100 11/24/18 19:33 100 11/24/18 19:00 96 11/24/18 18:50 97 11/24/18 18:40 97 11/24/18 18:30 98 11/24/18 18:20 100 11/24/18 18:10 100 11/24/18 14:01 100 11/24/18 11:16 100 Notes Mental Status: alert / awake / arousable and participated in evaluation Nausea / Vomiting: adequately controlled Pain: adequately controlled Airway Patency, RR, SpO2: stable & adequate BP & HR: stable & adequate Hydration State: stable & adequate
[2018-11-25] MEDS: LORazepam 1 MG TAB PO PRN ×2 (13:34→22:30)
[2018-11-25] MEDS ORDERED: FACTOR 8/HUMATE-P/ADVATE ONE (13:40)
[2018-11-25] MEDS ORDERED: [UNRECOGNIZED DRUG - MIXTURE] IV ONE (14:15)
--- NOTE | 2018-11-25 16:31 | Hematology/Oncology Prog Note ---
Date of Service November 25, 2018 Assessment & Plan (1) Von Willebrand disease: She did great with surgery and had only modest, expected blood loss. From here, we will dose her with 30 IU/kg of Humate-P every 12-24 hours as needed for the next 1-2 days. I gave her a dose earlier today and will re-evaluate her in the morning. If she starts to bleed at any time, I would give her another 30 IU/kg. . Present on Admission?: Yes Subjective Ms. Palomino's surgery went uneventfully yesterday. She lost a small amount of blood and has had no further bleeding since. She feels much better and thinks surgery went better than she anticipated. 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 Ear, Nose, Mouth, Throat: no epistaxis Respiratory: no cough and no dyspnea Cardiovascular: + edema (in her right hand); no chest pain Gastrointestinal: no nausea and no blood in stools Genitourinary: no dysuria and no hematuria Musculoskeletal: Right upper arm pain from her fracture Integumentary: no rash, no bleeding lesions and no unusual bruising Hematologic / Lymphatic: + easy bleeding and + easy bruising Physical Exam Constitutional: well developed and comfortable; no acute distress ENMT: external ear and nose normal, oropharynx normal Respiratory: normal respiratory effort, lungs clear to auscultation Cardiovascular: RRR, no murmur, no edema Gastrointestinal (Abdomen): normal bowel sounds, soft, nontender, no hepatosplenomegaly Skin: no rashes, warm and dry Psychiatric: A+Ox3, euthymic affect Results & Data Vital Signs (Past 12 Hours) Vital Signs Temp Pulse Pulse Resp BP BP Pulse Ox 11/25/18 16:00 36.3 C L 115 H 18 107/76 93 11/25/18 11:27 36.8 C 111 H 18 104/70 100 11/25/18 07:38 94 H 11/25/18 07:35 36.5 C 68 19 110/77 95 11/25/18 05:46 107 H 19 109/77 100
--- NOTE | 2018-11-25 16:48 | Hospitalist Progress Note ---
Date of Service November 25, 2018 Assessment & Plan (1) Sinus tachycardia: Possible secondary to anemia, hemoglobin 8.1 Does not have any clinical symptoms of shortness of breath dyspnea on exertion palpitation or dizzy spell Had minimum blood loss at this shoulder surgery Patient gets intermittent PRBC transfusion Ordered for 1 unit of PRBC to be transfused, repeat CBC in a.m. (2) Fall: (3) Fracture, humerus: S/P mechanical fall at home. CT scan of R humerus reveals mildly displaced and angulated proximal mid diaphyseal fracture of the right humerus with cortical fragment Xray of Right shoulder showed displaced angulated oblique fracture of the humerus extending from the humeral neck to the junction of the proximal and middle one third. Status post right shoulder ORIF, postoperative day 1 Recovering well postop Nonweightbearing right upper extremity in sling immobilization. Patient evaluated by orthopedics, appreciate recommendation (4) Gastroparesis: Denies of any symptoms of abdominal pain or bloating (5) Peptic ulcer disease: Continue PPI Stable (6) Seizure disorder: Continue Keppra and gabapentin Stable (7) Depression: Stable (8) Anxiety: Continue Ativan prn (9) Von Willebrand disease: Pt has type 2 Von Willibrand disease Appreciate hematology input and recommendation (10) DVT prophylaxis: On SCDs (Due to Type 2 Von Willibrand disease) No Anticoagulant Disposition Continue to monitor and telemetry (11) Anemia: History of chronic anemia requiring intermittent PRBC transfusion Had a minimum blood loss during surgery does not qualify for post op/acute blood loss anemia Getting 1 unit of PRBC transfusion, Follow H&H Subjective Patient denies of any dizzy spell, no lightheadedness, no shortness of breath or dyspnea on exertion Telemetry shows sinus tachycardia with heart rate variable from 110- 120 She is totally asymptomatic at this point She states her arm feels a lot better than she thought it would. Pain controlled presently. Physical Exam Constitutional: WD/WN, vitals as above no acute distress Eyes: PERRL, conjunctivae normal, anicteric sclerae ENMT: external ear and nose normal, oropharynx normal Neck: trachea midline, no thyromegaly Respiratory: normal respiratory effort, lungs clear to auscultation Cardiovascular: Rate/Rhythm: regular rate, regular rhythm and + tachycardic Gastrointestinal (Abdomen): normal bowel sounds, soft, nontender, no hepatosplenomegaly Musculoskeletal: Status post right shoulder surgery, right arm on sling Neurologic: Legally blind/alert awake oriented x3 Psychiatric: A+Ox3, euthymic affect Results & Data Vital Signs (Past 12 Hours) Vital Signs Temp Pulse Pulse Resp BP BP Pulse Ox 11/25/18 16:00 36.3 C L 115 H 18 107/76 93 11/25/18 11:27 36.8 C 111 H 18 104/70 100 11/25/18 07:38 94 H 11/25/18 07:35 36.5 C 68 19 110/77 95 11/25/18 05:46 107 H 19 109/77 100 (1) Fracture, humerus Encounter type: initial encounter Humerus Location: proximal Fracture type: closed Fracture morphology: unspecified fracture morphology Laterality: right Qualified Code(s): S42.201A - Unspecified fracture of upper end of right humerus, initial encounter for closed fracture (2) Fall Encounter type: initial encounter Qualified Code(s): W19.XXXA - Unspecified fall, initial encounter (3) Anemia Anemia type: unspecified type Qualified Code(s): D64.9 - Anemia, unspecified
[2018-11-25] MEDS ORDERED: SODIUM CHLORIDE 0.9% 250 ML IV PRN ×2 (18:00→18:29)
[2018-11-25] MEDS ORDERED: ACETAMINOPHEN 325 MG TAB PO SCH (18:00)
[2018-11-25] MEDS: SENNA 8.6 MG TAB PO SCH (21:20)
[2018-11-25] MEDS: CYCLOBENZAPRINE HCL 5 MG TAB PO PRN ×2 (23:20)
[2018-11-26] MEDS: HYDROmorphone INJ 1 MG/ML SYRINGE IV PRN ×4 (03:06→20:30)
[2018-11-26] MEDS: HEPARIN 100 UNIT/ML 5ML FLUSH FLUSH PRN ×2 (03:07→21:57)
[2018-11-26] MEDS: PROMETHAZINE HCL 12.5 MG in SODIUM CHLORIDE 0.9% 50 ML IV PRN ×2 (06:10→18:28)
[2018-11-26] MEDS: ACETAMINOPHEN 325 MG TAB PO SCH ×4 (06:14→23:39)
[2018-11-26 06:31] LABS: Hematocrit (blood only) 25.9 % (37-47); Hemoglobin 8.9 g/dL (12.0-16.0); Mean Corpuscular Hgb Conc 34.4 g/dL (32-36); Mean Corpuscular Volume 92.8 fL (80-100); Mean Platelet Volume 10.9 fL (7.4-10.4); Platelet Count 219 K/uL (130-400); RDW Coefficient of Variation 20.2 % (11.5-14.5); RDW Standard Deviation 67.9 fL (36.4-46.3); Red Blood Count 2.79 M/uL (4.2-5.4); White Blood Count 4.33 K/uL (4.8-10.8)
[2018-11-26] MEDS: DOCUSATE SODIUM 100 MG CAP PO SCH ×2 (09:23→20:27)
[2018-11-26] MEDS: MULTIVITAMIN TAB PO SCH (09:23)
[2018-11-26] MEDS: PANTOprazole 40 MG TAB PO SCH ×2 (09:23→20:27)
[2018-11-26] MEDS: GABAPENTIN 400 MG CAP PO SCH ×3 (09:23→20:27)
[2018-11-26] MEDS: DOCUSATE SODIUM/SENNA 50/8.6MG TAB PO SCH (09:24)
[2018-11-26] MEDS: FEXOFENADINE HCL 180 MG TAB PO SCH (09:24)
[2018-11-26] MEDS: levETIRAcetam 500 MG TAB PO SCH ×2 (09:24→20:25)
[2018-11-26] MEDS ORDERED: VANCOMYCIN CONSULT ACTIVE PRN (09:48)
--- NOTE | 2018-11-26 09:48 | Orthopedic Progress Note ---
Date of Service November 26, 2018 Assessment & Plan (1) Fracture, humerus: POD 2 ORIF Humerus Fx NWB RUE Sling to RUE;Ice to surgical sight. Elevation of arm as best as possible Daily dressing changes. Dressing changed by myself this AM. Hgb 8.9 today, recieved 1 unit of PRBC yesterday. Right hand swelling/erythema -She does have some tenderness dorsal aspect of hand. Swelling has improved previously. We will check an x-ray. She does have abrasions over her dorsal aspect of her hand MCP joints states this may have been from when she fell. There is erythema surrounding her MCP, question of possible developing cellulitis. We will start her on IV antibiotics. Subjective Patient is postop day #2 right humerus fracture ORIF. Seen resting in bed comfortably. Pain is well controlled, much improved from preop. Continues to have right hand swelling has improved from preoperatively. She is developing some erythema dorsal aspect of hand surrounding abrasions. No chest pain, sob, dizziness, fevers, chills. Review of Systems Review of Systems: All systems reviewed & are unremarkable except as noted in HPI & below Physical Exam Physical Exam: Incision is clean dry and intact. Dressing changed by myself. Fingers are mobile. Sensation and neurovascular status intact. Swelling dorsal aspect of right hand. There is some erythema over the dorsal aspect of her hand around her second through fourth MCP joints. There are abrasions over her third and second MCP joints. Results & Data Vital Signs (Past 12 Hours) Vital Signs Temp Pulse Pulse Resp BP Pulse Ox 11/26/18 07:00 36.8 C 112 H 18 96/69 L 100 11/26/18 04:00 37.1 C 97 H 16 93/64 L 97 11/26/18 00:00 36.9 C 124 H 69 18 102/72 95 Laboratory Results Lab Results 11/18/18 11/18/18 11/19/18 Range/Units 15:50 15:50 07:21 WBC 11.84 H 5.70 (4.8-10.8) K/uL RBC 3.57 L 3.34 L (4.2-5.4) M/uL Hgb 11.3 L 10.6 L (12.0-16.0) g/dL Hct 33.8 L 32.0 L (37-47) % MCV 94.7 95.8 (80-100) fL MCH 31.7 31.7 (25-34) pg MCHC 33.4 33.1 (32-36) g/dL RDW Std Deviation 73.1 H 71.7 H (36.4-46.3) fL RDW Coeff of Lisa 21.0 H 20.4 H (11.5-14.5) % Plt Count 343 293 (130-400) K/uL MPV 9.8 10.2 (7.4-10.4) fL Immature Gran % (Auto) 0.3 % Neut % (Auto) 78.0 % Lymph % (Auto) 13.1 % Garden % (Auto) 7.9 % Eos % (Auto) 0.3 % Baso % (Auto) 0.4 % Immature Gran # (Auto) 0.04 H (0.00-0.02) K/uL Neut # (Auto) 9.22 H (1.4-6.5) K/uL Lymph # (Auto) 1.55 (1.2-3.4) K/uL Garden # (Auto) 0.94 H (0.11-0.59) K/uL Eos # (Auto) 0.04 (0-0.5) K/uL Baso # (Auto) 0.05 (0-0.2) K/uL Polychromasia 1+ PT (9.0-12.0) Seconds INR (0.9-1.1) APTT (21.0-31.0) Seconds PTT Ratio Sodium 142 (136-145) mmol/L Potassium 4.1 (3.5-5.1) mmol/L Chloride 109 H (98-107) mmol/L Carbon Dioxide 23 (21-32) mmol/L Anion Gap 10.0 (3-11) BUN 5 L (7-18) mg/dl Creatinine 0.64 (0.6-1.2) mg/dl Est Cr Clr Drug Dosing 95.2 ml/min Est GFR ( Amer) 121.4 Est GFR (Non-Af Amer) 104.8 BUN/Creatinine Ratio 7.8 L (10-20) Glucose 71 (70-99) mg/dl Calcium 7.2 L (8.5-10.1) mg/dl Magnesium (1.8-2.4) mg/dl Total Bilirubin 0.7 (0.2-1) mg/dl AST 355 H (15-37) U/L ALT 71 (12-78) U/L Alkaline Phosphatase 148 H (45-117) U/L Total Creatine Kinase 213 H (26-192) U/L Troponin I < 0.015 (0-0.045) ng/ml Total Protein 5.4 L (6.4-8.2) gm/dl Albumin 2.6 L (3.4-5.0) gm/dl Globulin 2.8 (2.5-4.0) gm/dl Albumin/Globulin Ratio 0.9 (0.9-2) Lipase 22 L (73-393) U/L Blood Type Antibody Screen Antibody Identification Crossmatch 11/19/18 11/19/18 11/23/18 Range/Units 07:21 07:21 05:53 WBC (4.8-10.8) K/uL RBC (4.2-5.4) M/uL Hgb (12.0-16.0) g/dL Hct (37-47) % MCV (80-100) fL MCH (25-34) pg MCHC (32-36) g/dL RDW Std Deviation (36.4-46.3) fL RDW Coeff of Lisa (11.5-14.5) % Plt Count (130-400) K/uL MPV (7.4-10.4) fL Immature Gran % (Auto) % Neut % (Auto) % Lymph % (Auto) % Garden % (Auto) % Eos % (Auto) % Baso % (Auto) % Immature Gran # (Auto) (0.00-0.02) K/uL Neut # (Auto) (1.4-6.5) K/uL Lymph # (Auto) (1.2-3.4) K/uL Garden # (Auto) (0.11-0.59) K/uL Eos # (Auto) (0-0.5) K/uL Baso # (Auto) (0-0.2) K/uL Polychromasia PT 11.0 (9.0-12.0) Seconds INR 1.1 (0.9-1.1) APTT 33.4 H (21.0-31.0) Seconds PTT Ratio 1.2 Sodium 135 L 137 (136-145) mmol/L Potassium 3.9 3.7 (3.5-5.1) mmol/L Chloride 104 105 (98-107) mmol/L Carbon Dioxide 21 26 (21-32) mmol/L Anion Gap 10.0 6.0 (3-11) BUN 6 L 6 L (7-18) mg/dl Creatinine 0.45 L 0.46 L (0.6-1.2) mg/dl Est Cr Clr Drug Dosing 136.1 133.1 ml/min Est GFR ( Amer) 136.4 135.4 Est GFR (Non-Af Amer) 117.7 116.8 BUN/Creatinine Ratio 12.7 12.2 (10-20) Glucose 114 H 75 (70-99) mg/dl Calcium 6.8 L 7.4 L (8.5-10.1) mg/dl Magnesium 1.9 (1.8-2.4) mg/dl Total Bilirubin 0.8 (0.2-1) mg/dl AST 476 H (15-37) U/L ALT 134 H (12-78) U/L Alkaline Phosphatase 162 H (45-117) U/L Total Creatine Kinase (26-192) U/L Troponin I (0-0.045) ng/ml Total Protein 5.5 L (6.4-8.2) gm/dl Albumin 2.8 L (3.4-5.0) gm/dl Globulin 2.7 (2.5-4.0) gm/dl Albumin/Globulin Ratio 1.0 (0.9-2) Lipase (73-393) U/L Blood Type Antibody Screen Antibody Identification Crossmatch 11/24/18 11/24/18 11/24/18 Range/Units 09:30 10:32 14:54 WBC (4.8-10.8) K/uL RBC (4.2-5.4) M/uL Hgb (12.0-16.0) g/dL Hct (37-47) % MCV (80-100) fL MCH (25-34) pg MCHC (32-36) g/dL RDW Std Deviation (36.4-46.3) fL RDW Coeff of Lisa (11.5-14.5) % Plt Count (130-400) K/uL MPV (7.4-10.4) fL Immature Gran % (Auto) % Neut % (Auto) % Lymph % (Auto) % Garden % (Auto) % Eos % (Auto) % Baso % (Auto) % Immature Gran # (Auto) (0.00-0.02) K/uL Neut # (Auto) (1.4-6.5) K/uL Lymph # (Auto) (1.2-3.4) K/uL Garden # (Auto) (0.11-0.59) K/uL Eos # (Auto) (0-0.5) K/uL Baso # (Auto) (0-0.2) K/uL Polychromasia PT (9.0-12.0) Seconds INR (0.9-1.1) APTT Cancelled 28.3 (21.0-31.0) Seconds PTT Ratio Cancelled 1.0 Sodium (136-145) mmol/L Potassium (3.5-5.1) mmol/L Chloride (98-107) mmol/L Carbon Dioxide (21-32) mmol/L Anion Gap (3-11) BUN (7-18) mg/dl Creatinine (0.6-1.2) mg/dl Est Cr Clr Drug Dosing ml/min Est GFR ( Amer) Est GFR (Non-Af Amer) BUN/Creatinine Ratio (10-20) Glucose (70-99) mg/dl Calcium (8.5-10.1) mg/dl Magnesium (1.8-2.4) mg/dl Total Bilirubin (0.2-1) mg/dl AST (15-37) U/L ALT (12-78) U/L Alkaline Phosphatase (45-117) U/L Total Creatine Kinase (26-192) U/L Troponin I (0-0.045) ng/ml Total Protein (6.4-8.2) gm/dl Albumin (3.4-5.0) gm/dl Globulin (2.5-4.0) gm/dl Albumin/Globulin Ratio (0.9-2) Lipase (73-393) U/L Blood Type A Positive Antibody Screen POSITIVE A Antibody Identification Anti-K Crossmatch See Detail 11/25/18 11/25/18 11/25/18 Range/Units 05:53 05:53 05:53 WBC 7.43 (4.8-10.8) K/uL RBC 2.57 L (4.2-5.4) M/uL Hgb 8.1 L (12.0-16.0) g/dL Hct 24.1 L (37-47) % MCV 93.8 (80-100) fL MCH 31.5 (25-34) pg MCHC 33.6 (32-36) g/dL RDW Std Deviation 72.0 H (36.4-46.3) fL RDW Coeff of Lisa 21.1 H (11.5-14.5) % Plt Count 223 (130-400) K/uL MPV 11.9 H (7.4-10.4) fL Immature Gran % (Auto) % Neut % (Auto) % Lymph % (Auto) % Garden % (Auto) % Eos % (Auto) % Baso % (Auto) % Immature Gran # (Auto) (0.00-0.02) K/uL Neut # (Auto) (1.4-6.5) K/uL Lymph # (Auto) (1.2-3.4) K/uL Garden # (Auto) (0.11-0.59) K/uL Eos # (Auto) (0-0.5) K/uL Baso # (Auto) (0-0.2) K/uL Polychromasia PT (9.0-12.0) Seconds INR (0.9-1.1) APTT 28.8 (21.0-31.0) Seconds PTT Ratio 1.1 Sodium 136 (136-145) mmol/L Potassium 4.1 (3.5-5.1) mmol/L Chloride 106 (98-107) mmol/L Carbon Dioxide 24 (21-32) mmol/L Anion Gap 6.0 (3-11) BUN 6 L (7-18) mg/dl Creatinine 0.48 L (0.6-1.2) mg/dl Est Cr Clr Drug Dosing 127.6 ml/min Est GFR ( Amer) 133.5 Est GFR (Non-Af Amer) 115.2 BUN/Creatinine Ratio 12.8 (10-20) Glucose 114 H (70-99) mg/dl Calcium 7.6 L (8.5-10.1) mg/dl Magnesium (1.8-2.4) mg/dl Total Bilirubin (0.2-1) mg/dl AST (15-37) U/L ALT (12-78) U/L Alkaline Phosphatase (45-117) U/L Total Creatine Kinase (26-192) U/L Troponin I (0-0.045) ng/ml Total Protein (6.4-8.2) gm/dl Albumin (3.4-5.0) gm/dl Globulin (2.5-4.0) gm/dl Albumin/Globulin Ratio (0.9-2) Lipase (73-393) U/L Blood Type Antibody Screen Antibody Identification Crossmatch 11/26/18 Range/Units 05:51 WBC 4.33 L (4.8-10.8) K/uL RBC 2.79 L (4.2-5.4) M/uL Hgb 8.9 L (12.0-16.0) g/dL Hct 25.9 L (37-47) % MCV 92.8 (80-100) fL MCH 31.9 (25-34) pg MCHC 34.4 (32-36) g/dL RDW Std Deviation 67.9 H (36.4-46.3) fL RDW Coeff of Lias 20.2 H (11.5-14.5) % Plt Count 219 (130-400) K/uL MPV 10.9 H (7.4-10.4) fL Immature Gran % (Auto) % Neut % (Auto) % Lymph % (Auto) % Garden % (Auto) % Eos % (Auto) % Baso % (Auto) % Immature Gran # (Auto) (0.00-0.02) K/uL Neut # (Auto) (1.4-6.5) K/uL Lymph # (Auto) (1.2-3.4) K/uL Garden # (Auto) (0.11-0.59) K/uL Eos # (Auto) (0-0.5) K/uL Baso # (Auto) (0-0.2) K/uL Polychromasia PT (9.0-12.0) Seconds INR (0.9-1.1) APTT (21.0-31.0) Seconds PTT Ratio Sodium (136-145) mmol/L Potassium (3.5-5.1) mmol/L Chloride (98-107) mmol/L Carbon Dioxide (21-32) mmol/L Anion Gap (3-11) BUN (7-18) mg/dl Creatinine (0.6-1.2) mg/dl Est Cr Clr Drug Dosing ml/min Est GFR ( Amer) Est GFR (Non-Af Amer) BUN/Creatinine Ratio (10-20) Glucose (70-99) mg/dl Calcium (8.5-10.1) mg/dl Magnesium (1.8-2.4) mg/dl Total Bilirubin (0.2-1) mg/dl AST (15-37) U/L ALT (12-78) U/L Alkaline Phosphatase (45-117) U/L Total Creatine Kinase (26-192) U/L Troponin I (0-0.045) ng/ml Total Protein (6.4-8.2) gm/dl Albumin (3.4-5.0) gm/dl Globulin (2.5-4.0) gm/dl Albumin/Globulin Ratio (0.9-2) Lipase (73-393) U/L Blood Type Antibody Screen Antibody Identification Crossmatch (1) Fracture, humerus Encounter type: initial encounter Fracture morphology: unspecified fracture morphology Fracture type: closed Humerus Location: proximal Laterality: right Qualified Code(s): S42.201A - Unspecified fracture of upper end of right humerus, initial encounter for closed fracture
[2018-11-26] MEDS ORDERED: VANCOMYCIN HCL 1,000 MG in SODIUM CHLORIDE 0.9% 250 ML IV SCH (10:00)
--- NOTE | 2018-11-26 10:27 | XRay Report ---
XR hand RT min 3V routine HISTORY: 48 years-old Female Hand swelling/pain and tenderness acute right hand pain and swelling COMPARISON: None available TECHNIQUE: 3 views of the right hand FINDINGS: Extensive dorsal hand soft tissue swelling. Mild degenerative changes of the interphalangeal joints a nd first carpal metacarpal joint. Mild cortical irregularity about the distal scaphoid with corticate d margins. No definite acute fracture or dislocation. There are equivocal periarticular erosions note d about the distal aspect of the fifth proximal phalanx. IMPRESSION: 1. Extensive soft tissue swelling without definite acute fracture or dislocation identified. 2. Mild cortical irregularity about the lateral scaphoid is noted which may reflect sequela of remote trauma. Correlate with point tenderness. 3. Equivocal periarticular erosions about the distal aspect of the fifth proximal phalanx. Correlate clinically to exclude underlying infectious or inflammatory arthropathy. The above report was generated using voice recognition software. It may contain grammatical, syntax o r spelling errors. Electronically signed by: Scott Blanco M.D. 11/26/2018 10:26 AM
[2018-11-26] MEDS ORDERED: VANCOMYCIN HCL 1,500 MG in SODIUM CHLORIDE 0.9% 500 ML IV ONE (10:30)
--- NOTE | 2018-11-26 10:32 | Pharmacy Report ---
Pharmacy Abx Initial Consult - Date of Service November 26, 2018 - Pharmacy Dosing Scope Date of Consult: 11/26/18 Consultation requested by: Jaspal Saha PA-C Pharmacy is consulted to initiate Vancomycin IV dosing therapy, order appropriate labs and adjust drug dose/frequency. - Subjective The patient is a 48 year old F admitted on 11/20/18 17:30. - Objective Height: 5 ft 5 in Weight: 65.1 kg Vital Signs (Past 12hrs): Vital Signs Temp Pulse Pulse Resp BP Pulse Ox 11/26/18 07:00 36.8 C 112 H 18 96/69 L 100 11/26/18 04:00 37.1 C 97 H 16 93/64 L 97 11/26/18 00:00 36.9 C 124 H 69 18 102/72 95 Lab Results (24hrs): Laboratory Tests (24 Hours) 11/26/18 05:51 WBC 4.33 L - Risk Factors for Resistance None - Assessment & Plan Assessment 48 year old F s/p ORIF R humerus on 11/24/18 Patient now developed right hand swelling suspicious for cellulitis Renal function stable Plan IV Vancomycin for treatment of Cellulitis Vancomycin IV * Estimated PK Parameters: Vd 0.7 L/kg, Dany 0.110 hr-1, t1/2 ~6 hrs * Loading dose: 1500 mg (~23 mg/kg) * Maintenance dose: 1000 mg IV (~15 mg/kg) every 8 hours * Goal trough level for cellulitis: 10 to 20 mcg/mL * Trough level ordered for 11/27/18 Pharmacy will continue to follow and will adjust dose/frequency as necessary. Thank you.
[2018-11-26] MEDS: OXYCODONE HCL IR 5 MG TAB (IMMEDIATE RELEASE) PO PRN (11:51)
[2018-11-26] MEDS ORDERED: FACTOR 8/HUMATE-P/ADVATE ONE (13:45)
[2018-11-26] MEDS ORDERED: [UNRECOGNIZED DRUG - MIXTURE] IV SCH (14:00)
[2018-11-26] MEDS ORDERED: [UNRECOGNIZED DRUG - MIXTURE] IV SCH (14:15)
[2018-11-26] MEDS: VANCOMYCIN HCL 1,000 MG in SODIUM CHLORIDE 0.9% 250 ML IV SCH (17:36)
--- NOTE | 2018-11-26 17:37 | Hospitalist Progress Note ---
Date of Service November 26, 2018 Assessment & Plan (1) Sinus tachycardia: Resolved after correction of anemia, status post monitor PRBC transfusion (2) Fall: (3) Fracture, humerus: S/P mechanical fall at home. CT scan of R humerus reveals mildly displaced and angulated proximal mid diaphyseal fracture of the right humerus with cortical fragment Xray of Right shoulder showed displaced angulated oblique fracture of the humerus extending from the humeral neck to the junction of the proximal and middle one third. Status post right shoulder ORIF, postoperative day 3 Recovering well postop Nonweightbearing right upper extremity in sling immobilization. Patient evaluated by orthopedics, appreciate recommendation (4) Gastroparesis: Denies of any symptoms of abdominal pain or bloating (5) Peptic ulcer disease: Continue PPI Stable (6) Seizure disorder: Continue Keppra and gabapentin Stable (7) Depression: Stable (8) Anxiety: Continue Ativan prn (9) Von Willebrand disease: Pt has type 2 Von Willibrand disease Appreciate hematology input and recommendation (10) DVT prophylaxis: On SCDs (Due to Type 2 Von Willibrand disease) No Anticoagulant Disposition Continue to monitor and telemetry (11) Anemia: History of chronic anemia requiring intermittent PRBC transfusion Had a minimum blood loss during surgery does not qualify for post op/acute blood loss anemia Status post 1 unit of PRBC transfusion, Hemoglobin improved from 8.18.9 With improvement of tachycardia Follow H&H Subjective Patient is postop day #3 right humerus fracture ORIF. Right shoulder pain has improved, Heart rate remains stable, patient feels much better after 1 unit of PRBC transfusion yesterday Physical Exam Constitutional: WD/WN, vitals as above no acute distress Eyes: PERRL, conjunctivae normal, anicteric sclerae ENMT: external ear and nose normal, oropharynx normal Neck: trachea midline, no thyromegaly Respiratory: normal respiratory effort, lungs clear to auscultation Cardiovascular: Rate/Rhythm: regular rate and regular rhythm Gastrointestinal (Abdomen): normal bowel sounds, soft, nontender, no hepatosplenomegaly Musculoskeletal: Right arm in sling status post surgery Psychiatric: A+Ox3, euthymic affect Results & Data Vital Signs (Past 12 Hours) Vital Signs Temp Pulse Pulse Resp BP Pulse Ox 11/26/18 13:06 98 11/26/18 12:00 36.7 C 97 H 18 106/75 100 11/26/18 11:29 69 11/26/18 07:00 36.8 C 112 H 18 96/69 L 100 11/26/18 04:00 37.1 C 97 H 16 93/64 L 97 (1) Fall Encounter type: initial encounter Qualified Code(s): W19.XXXA - Unspecified fall, initial encounter (2) Fracture, humerus Encounter type: initial encounter Fracture morphology: unspecified fracture m orphology Fracture type: closed Humerus Location: proximal Laterality: right Qualified Code(s): S42.201A - Unspecified fracture of upper end of right humerus, initial encounter for closed fracture (3) Anemia Anemia type: unspecified type Qualified Code(s): D64.9 - Anemia, unspecified
[2018-11-26] MEDS: SENNA 8.6 MG TAB PO SCH (20:26)
[2018-11-26] MEDS: LORazepam 1 MG TAB PO PRN (21:56)
[2018-11-27] MEDS: VANCOMYCIN HCL 1,000 MG in SODIUM CHLORIDE 0.9% 250 ML IV SCH ×3 (01:13→18:26)
[2018-11-27] MEDS: HYDROmorphone INJ 1 MG/ML SYRINGE IV PRN ×4 (01:34→23:13)
[2018-11-27] MEDS: HEPARIN 100 UNIT/ML 5ML FLUSH FLUSH PRN ×2 (05:43→12:48)
[2018-11-27] MEDS: ACETAMINOPHEN 325 MG TAB PO SCH ×3 (06:02→18:33)
[2018-11-27 07:24] LABS: Creatinine Clr Calc Pharmacy 149.4 ml/min; Est GFR (African American) 140.6; Est GFR (Non-African American) 121.3
--- NOTE | 2018-11-27 07:36 | Orthopedic Progress Note ---
Date of Service November 27, 2018 Assessment & Plan (1) Fracture, humerus: POD#3 ORIF Humerus Fx NWB RUE Sling to RUE;Ice to surgical sight. Elevation of arm as best as possible Right hand swelling/erythema -X-ray negative for fracture. Was started on IV vanco, will continue to watch for now. Subjective Patient is postop day #3 right humerus fracture ORIF. Shoulder pain is well controlled. Having increased hand and forearm pain this morning and last night. No other complaints Review of Systems Review of Systems: All systems reviewed & are unremarkable except as noted in HPI & below Physical Exam Physical Exam: Shoulder dressing is c/d/i, sling in place. Fingers are mobile, sensation intact. Does have persisting swelling dorsum of right hand, fingers appear mildly more swollen today. Continue erythema dorsum of hand and into digits. Results & Data Vital Signs (Past 12 Hours) Vital Signs Temp Pulse Resp BP BP Pulse Ox 11/27/18 04:00 36.6 C 96 H 18 96/73 L 100 11/27/18 00:00 36.9 C 101 H 20 100/76 97 11/26/18 20:17 37.0 C 108 H 18 112/79 93 (1) Fracture, humerus Encounter type: initial encounter Fracture morphology: unspecified fracture morphology Fracture type: closed Humerus Location: proximal Laterality: right Qualified Code(s): S42.201A - Unspecified fracture of upper end of right humerus, initial encounter for closed fracture
[2018-11-27] MEDS: DOCUSATE SODIUM 100 MG CAP PO SCH ×2 (08:57→20:38)
[2018-11-27] MEDS: FEXOFENADINE HCL 180 MG TAB PO SCH (08:57)
[2018-11-27] MEDS: levETIRAcetam 500 MG TAB PO SCH ×2 (08:57→20:36)
[2018-11-27] MEDS: GABAPENTIN 400 MG CAP PO SCH ×3 (08:57→20:37)
[2018-11-27] MEDS: DOCUSATE SODIUM/SENNA 50/8.6MG TAB PO SCH (08:58)
[2018-11-27] MEDS: PANTOprazole 40 MG TAB PO SCH ×2 (08:58→20:38)
[2018-11-27] MEDS: MULTIVITAMIN TAB PO SCH (08:59)
[2018-11-27 09:33] LABS: Hematocrit (blood only) 28.5 % (37-47); Hemoglobin 9.7 g/dL (12.0-16.0)
[2018-11-27] MEDS: OXYCODONE HCL IR 5 MG TAB (IMMEDIATE RELEASE) PO PRN (11:45)
--- NOTE | 2018-11-27 12:18 | Hematology/Oncology Prog Note ---
Date of Service November 27, 2018 Assessment & Plan (1) Von Willebrand disease: She has not had any obvious bleeding since surgery. She got a third dose of Humate-P yesterday. We unfortunately do not have a way of trending her VWF activity. However, it appears our replacement strategy has been effective so far. Guidelines recommend keeping the activity levels up for up to 7-14 days after surgery, though sometimes less in patients where whose operative sites are easily accessible and able to be closely monitored for bleeding. I will give her another dose of Humate today and will give one tomorrow as well. We can discuss how to follow her after that. Her hand is more painful today and is a bit cool. Her capillary refill is normal and her pulse is strong, so I do not strongly suspect bleeding at her surgical site, but I suggested to her primary team that her surgeon come have a look at her arm. Present on Admission?: Yes Subjective Ms. Palomino is having more pain in her hand and forearm today. She first noticed the change last night. She has not noticed any bleeding anywhere. 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 Respiratory: no cough and no dyspnea Cardiovascular: + edema (in her right hand); no chest pain Gastrointestinal: no blood in stools Genitourinary: no hematuria Musculoskeletal: + swelling (in her right hand) Right upper arm pain from her fracture, increased from yesterday Integumentary: scattered bruises and abrasions from her fall, stable Neurologic: no headache(s) Hematologic / Lymphatic: + easy bleeding and + easy bruising Physical Exam Constitutional: well developed and comfortable; no acute distress ENMT: external ear and nose normal, oropharynx normal Respiratory: normal respiratory effort, lungs clear to auscultation Cardiovascular: RRR, no murmur, no edema Gastrointestinal (Abdomen): normal bowel sounds, soft, nontender, no hepatosplenomegaly Musculoskeletal: Her right hand is edematous and mildly cool to the touch compared to her left. Her capillary refill is brisk and her radial pulse is strong. She can move her hand and fingers slowly and her measurement specialist is weak compared to her left but Skin: no rashes, warm and dry Psychiatric: A+Ox3, euthymic affect Results & Data Vital Signs (Past 12 Hours) Vital Signs Temp Pulse Resp BP Pulse Ox 11/27/18 11:32 36.6 C 108 H 18 127/89 100 11/27/18 07:35 36.7 C 95 H 18 105/73 98 11/27/18 04:00 36.6 C 96 H 18 96/73 L 100 Laboratory Results Abnormal lab results 11/27/18 11/27/18 Range/Units 05:36 05:39 Hgb 9.7 L (12.0-16.0) g/dL Hct 28.5 L (37-47) % Creatinine 0.41 L (0.6-1.2) mg/dl
[2018-11-27] MEDS ORDERED: FACTOR 8/HUMATE-P/ADVATE ONE (12:25)
[2018-11-27] MEDS ORDERED: HYDROmorphone INJ 1 MG/ML SYRINGE IV STA (12:32)
[2018-11-27] MEDS ORDERED: [UNRECOGNIZED DRUG - MIXTURE] IV SCH (12:45)
--- NOTE | 2018-11-27 13:13 | Communication Note ---
Date of Service: November 27, 2018 I was asked to see the patient today by Dr. Alberto to assess the patient's arm swelling. Patient was seen earlier by Jaspal Saha PA-C who would asked me to recheck on her earlier today. Upon walking into the room, patient is currently awake and alert and speaking to the nursing staff. On appearance she looks comfortable but upon talking about her arm she complains of pain. She states that she has been doing quite well over the last day or so after the surgery however last night she began having increased pain and what she felt to be swelling in the forearm and Observing the forearm and right hand, the hand swelling appears to be slightly better at the dorsum of the hand. Earlier this morning she had a lot of increased rubor to her fingers however that has dissipated and all 5 fingers are pink at this time but somewhat cool. Capillary refill is less than 2 seconds and she has good sensation of all the fingers. She has a good radial pulse. Palpation of the dorsum of the hand causes her discomfort. Light palpation of the forearm finds that she does have swelling of the forearm but is not tensely swollen. Feels like she has slightly a bit more swelling on the volar aspect but again is compressible. She does have pain on palpation of the forearm. Passive dorsiflexion of the first and fifth fingers produces no pain. Passive flexion of the second through fourth fingers does cause her discomfort. She is able to do gentle range of motion of her wrist and passive dorsiflexion does cause increased pain up the forearm to the elbow. She has no pain essentially above the elbow and around the surgical site. I discussed the case with Dr. Alberto. She is planning to get an upper extremity CT. I have also discussed the case with Dr. Suazo. We feel this may be less likely compartment syndrome rather than the swelling from her surgery 2 days ago. We will review her CT scan today and see what in the way of hematoma and/or swelling will show up. Plans will be to continue elevation of the extremity and watching her over the weekend. However, if she continues to have swelling even from the surgical site that is going into her forearm and hand, Dr. Suazo feels that her VWF could be best monitored at a tertiary care facility. We will await the CT results.
--- NOTE | 2018-11-27 13:28 | Hospitalist Progress Note ---
Date of Service November 27, 2018 Assessment & Plan (1) Pain of right upper extremity: Developed acute swelling, pain of right hand right forearm and shoulder since last night Given patient's history of von Willebrand disease, recent traumatic fracture of humerus status post surgery, high risk for bleeding/hematoma Appreciate input from hematology oncology and orthopedics CT of right upper extremity ordered for evaluation Continue to monitor closely, N.p.o. until CT finding, in case patient needs emergent surgical procedure (2) Right arm pain: As explained above (3) Sinus tachycardia: Resolved after correction of anemia, status post monitor PRBC transfusion (4) Fall: (5) Fracture, humerus: S/P mechanical fall at home. CT scan of R humerus reveals mildly displaced and angulated proximal mid diaphyseal fracture of the right humerus with cortical fragment Xray of Right shoulder showed displaced angulated oblique fracture of the humerus extending from the humeral neck to the junction of the proximal and middle one third. Status post right shoulder ORIF, postoperative day #4 Developed worsening of pain and swelling on right arm and hand Stat CT contrast of right upper extremity ordered to assess for any ongoing bleeding/ (6) Gastroparesis: Denies of any symptoms of abdominal pain or bloating continue n.p.o. Pending report for CT rt of upper extremity (7) Peptic ulcer disease: Continue PPI Stable (8) Seizure disorder: Continue Keppra and gabapentin Stable (9) Depression: Stable (10) Anxiety: Continue Ativan prn (11) Von Willebrand disease: Pt has type 2 Von Willibrand disease Appreciate hematology input and recommendation Ordered further dose of von Willebrand factor with concern of ongoing bleeding/hematoma and right upper extremity (12) DVT prophylaxis: On SCDs (Due to Type 2 Von Willibrand disease) No Anticoagulant Disposition Continue to monitor and telemetry (13) Anemia: History of chronic anemia requiring intermittent PRBC transfusion Had a minimum blood loss during surgery does not qualify for post op/acute blood loss anemia Status post 1 unit of PRBC transfusion, Hemoglobin improved from 8.18.9 With improvement of tachycardia Follow H&H Subjective Complaints of worsening pain and swelling on her right hand forearm and shoulder, started last night Right hand dorsal portion markedly swelled/noted to be cyanotic, fingers are cold compared to other hand Palpable pulse present Tenderness and tightness noted on right arm p.o. pain meds Patient mentions she cannot move her right shoulder at all which is change since yesterday P.o. pain med is not helping with her pain at all, getting intermittent relief with IV Dilaudid Order to increase dosing frequency of iv Dilaudid Patient was evaluated by orthopedics earlier this morning, had a x-ray of right hand for concern of swelling, showed a superficial soft tissue swelling only Was updated by hematology oncology Dr. Suazo given patient's High risk for bleeding, type II von Willebrand disease-I recommend further investigation for possible hematoma versus compartment syndrome Case discussed with on-call orthopedics, Ordered for CT of right upper extremity with contrast to assess for bleeding/extravasation of blood in tissue/hematoma Patient is ordered n.p.o. We will follow-up CT report, and update orthopedics Physical Exam Constitutional: WD/WN, vitals as above + acute distress Secondary to right hand and arm pain Eyes: PERRL, conjunctivae normal, anicteric sclerae ENMT: external ear and nose normal, oropharynx normal Neck: trachea midline, no thyromegaly Respiratory: normal respiratory effort, lungs clear to auscultation Cardiovascular: Rate/Rhythm: regular rate and regular rhythm Gastrointestinal (Abdomen): normal bowel sounds, soft, nontender, no hepatosplenomegaly Musculoskeletal: Right hand swelled, with cold cyanotic fingers, pain and tenderness on the right arm and right shoulder change exam since yesterday Neurologic: Patient is legally blind, no other focal neurological deficit Psychiatric: A+Ox3, euthymic affect Results & Data Vital Signs (Past 12 Hours) Vital Signs Temp Pulse Resp BP Pulse Ox 11/27/18 11:32 36.6 C 108 H 18 127/89 100 11/27/18 07:35 36.7 C 95 H 18 105/73 98 11/27/18 04:00 36.6 C 96 H 18 96/73 L 100 (1) Fall Encounter type: initial encounter Qualified Code(s): W19.XXXA - Unspecified fall, initial encounter (2) Fracture, humerus Encounter type: initial encounter Fracture morphology: unspecified fracture morphology Fracture type: closed Humerus Location: proximal Laterality: right Qualified Code(s): S42.201A - Unspecified fracture of upper end of right humerus, initial encounter for closed fracture (3) Anemia Anemia type: unspecified type Qualified Code(s): D64.9 - Anemia, unspecified
[2018-11-27] MEDS ORDERED: IOVERSOL 100ml IV PRN ×2 (14:48→14:55)
--- NOTE | 2018-11-27 15:14 | CT Scan Report ---
CT humerus RT w con, CT forearm RT w con, CT hand RT w con HISTORY: hematoma /compartment syndrome TECHNIQUE: Multiaxial CT images of the right humerus, right forearm, right hand were performed follow ing the use of intravenous contrast. COMPARISON STUDY: Right hand radiographs 11/26/2018. Right humerus 11/22/2018. FINDINGS: Patient is status post recent internal fixation of a proximal to mid shaft right humeral fr acture with a lateral cortical plate and screws. The hardware appears intact. The majority of the fra cture demonstrates near-anatomic alignment. There is an additional bony fragment at the mid shaft whi ch demonstrates 1 cm of posterior displacement. This is not transfixed with a screw. The fracture ext ends to the humeral neck. No dislocation. The visualized right scapula appears intact. No fracture or dislocation within the right elbow, forearm, hand. Extensive subcutaneous edema within the right upp er extremity as well as the right lateral chest and abdominal wall. No loculated fluid collections to suggest an abscess or hematoma. There are skin chito within the anterior upper arm. The major ruddy rial structures within the upper arm are patent. The arterial structures within the forearm and hand are not well visualized due to the artifact. IMPRESSION: 1. Extensive subcutaneous edema throughout the right upper extremity. 2. No loculated fluid collections to suggest an abscess or hematoma. 3. Patient is status post recent internal fixation of a proximal to mid shaft right humeral fracture with cortical plate and screws. The hardware appears intact. The fracture demonstrates near anatomic alignment as described above. Electronically signed by: Hadley Soni M.D. 11/27/2018 3:13 PM
[2018-11-27] MEDS ORDERED: VANCOMYCIN CONSULT ACTIVE PRN (15:17)
[2018-11-27] MEDS: POLYETHYLENE (MIRALAX) 17 GM PACK PO SCH ×2 (15:29→20:35)
--- NOTE | 2018-11-27 15:40 | Hospitalist Progress Note ---
Date of Service November 27, 2018 Subjective Attending addendum: CT of right upper extremity with contrast report reviewed: 1. Extensive subcutaneous edema throughout the right upper extremity. 2. No loculated fluid collections to suggest an abscess or hematoma. 3. Patient is status post recent internal fixation of a proximal to mid shaft right humeral fracture with cortical plate and screws. The hardware appears intact. The fracture demonstrates near anatomic alignment as described above. Updated by hematology oncology Dr. Suazo Recommends Doppler ultrasound right upper extremity to rule out DVT given extensive subcutaneous edema Doppler ultrasound ordered Orthopedics team updated, given no fluid collection or hematoma: No indication for surgery Ordered for diet Terra Alberto MD Results & Data Vital Signs (Past 12 Hours) Vital Signs Temp Pulse Pulse Resp BP Pulse Ox 11/27/18 11:32 36.6 C 108 H 18 127/89 100 11/27/18 08:00 92 H 11/27/18 07:35 36.7 C 95 H 18 105/73 98 11/27/18 04:00 36.6 C 96 H 18 96/73 L 100
[2018-11-27] MEDS ORDERED: VANCOMYCIN TROUGH ONE (17:30)
--- NOTE | 2018-11-27 18:13 | Ultrasound Report ---
US venous doppler UE RT HISTORY: 48 years-old Female Rt arm swelling R/o DVT acute pain and swelling of the right upper extr emity COMPARISON: Right humerus CT of same day TECHNIQUE: Multiple real time sonographic images of the right upper extremity deep venous structures were obtained assessing grayscale appearance, color and spectral flow FINDINGS: Normal flow, compressibility, phasicity and augmentation of the right upper extremity deep venous str uctures. Study is limited secondary to right upper extremity bandaging and patient positioning. Subcu taneous edema. IMPRESSION: No sonographic evidence of deep venous thrombosis. The above report was generated using voice recognition software. It may contain grammatical, syntax o r spelling errors. Electronically signed by: Scott Blanco M.D. 11/27/2018 6:11 PM
[2018-11-27] MEDS: PROMETHAZINE HCL 12.5 MG in SODIUM CHLORIDE 0.9% 50 ML IV PRN (19:30)
[2018-11-27] MEDS: SENNA 8.6 MG TAB PO SCH (20:37)
[2018-11-27] MEDS: LORazepam 1 MG TAB PO PRN (20:40)
[2018-11-27] MEDS ORDERED: [UNRECOGNIZED DRUG - MIXTURE] IV ONE (21:00)
[2018-11-27] MEDS ORDERED: FACTOR 8/HUMATE-P/ADVATE SCH (21:00)
[2018-11-28] MEDS: ACETAMINOPHEN 325 MG TAB PO SCH ×3 (00:04→12:02)
[2018-11-28] MEDS: VANCOMYCIN HCL 1,000 MG in SODIUM CHLORIDE 0.9% 250 ML IV SCH (02:34)
[2018-11-28] MEDS: HEPARIN 100 UNIT/ML 5ML FLUSH FLUSH PRN ×4 (02:38→16:30)
[2018-11-28] MEDS: HYDROmorphone INJ 1 MG/ML SYRINGE IV PRN ×4 (04:18→23:57)
[2018-11-28 07:18] LABS: Calcium 7.6 mg/dl (8.5-10.1); Creatinine Clr Calc Pharmacy 136.1 ml/min; Est GFR (African American) 136.4; Est GFR (Non-African American) 117.7; Potassium 3.6 mmol/L (3.5-5.1)
[2018-11-28 07:28] LABS: Hematocrit (blood only) 25.5 % (37-47); Mean Corpuscular Hgb Conc 35.3 g/dL (32-36); Mean Corpuscular Volume 91.1 fL (80-100); Mean Platelet Volume 9.9 fL (7.4-10.4); Platelet Count 439 K/uL (130-400); RDW Standard Deviation 66.2 fL (36.4-46.3); White Blood Count 3.99 K/uL (4.8-10.8)
[2018-11-28] MEDS ORDERED: [UNRECOGNIZED DRUG - MIXTURE] IV ONE ×2 (09:00→12:00)
[2018-11-28] MEDS: levETIRAcetam 500 MG TAB PO SCH ×2 (09:24→21:12)
[2018-11-28] MEDS: PROMETHAZINE HCL 12.5 MG in SODIUM CHLORIDE 0.9% 50 ML IV PRN ×2 (09:24→17:08)
[2018-11-28] MEDS: DOCUSATE SODIUM 100 MG CAP PO SCH ×2 (09:24→21:12)
[2018-11-28] MEDS: MULTIVITAMIN TAB PO SCH (09:24)
[2018-11-28] MEDS: FEXOFENADINE HCL 180 MG TAB PO SCH (09:24)
[2018-11-28] MEDS: POLYETHYLENE (MIRALAX) 17 GM PACK PO SCH (09:24)
[2018-11-28] MEDS: DOCUSATE SODIUM/SENNA 50/8.6MG TAB PO SCH (09:24)
[2018-11-28] MEDS: PANTOprazole 40 MG TAB PO SCH ×2 (09:24→21:13)
[2018-11-28] MEDS: GABAPENTIN 400 MG CAP PO SCH ×3 (09:24→21:12)
[2018-11-28] MEDS ORDERED: [UNRECOGNIZED DRUG - MIXTURE] IV ONE (12:00)
[2018-11-28] MEDS: LORazepam 1 MG TAB PO PRN ×2 (12:09→21:11)
--- NOTE | 2018-11-28 12:41 | Orthopedic Progress Note ---
Date of Service November 28, 2018 Subjective Improvement in right hand swelling and sensation. She is improved her resting position with an increased size pillow and a ice pack to the right hand forearm and upper arm. Physical Exam Physical Exam: Right upper extremity dressing in place over surgical site is clean, dry and intact. Local edema right upper extremity forearm and dorsal hand somewhat improved compared to yesterday. Hand wrist and finger motion both active and passive are improved today compared to yesterday. Decreased tissue tension dorsal hand with palpation. Radial pulse 2 out of 4 symmetric bilateral upper extremities. Sensation improved right dorsal hand compared to yesterday exam. Results & Data Vital Signs (Past 12 Hours) Vital Signs Temp Pulse Pulse Resp BP BP Pulse Ox 11/28/18 10:54 36.5 C 96 H 18 118/74 97 11/28/18 09:00 89 11/28/18 07:35 36.3 C L 72 18 125/75 97 11/28/18 04:00 36.6 C 99 H 18 111/78 99
--- NOTE | 2018-11-28 12:52 | Hematology/Oncology Prog Note ---
Date of Service November 28, 2018 Assessment & Plan (1) Von Willebrand disease: We had concern yesterday that she was bleeding into her arm. However, it appears the changes were related to dependent edema. She is keeping her arm better elevated and the swelling is down dramatically. She will need to continue Humate-P to complete a 7-14 day course. I think we can continue with once daily dosing for now, in the absence of additional bleeding, though I did increase her dose a bit to closer to 40 mg/kg daily. We will keep her through the weekend and make arrangements for home infusion of the Humate on Friday. Present on Admission?: Yes Subjective Ms. Palomino looks markedly better today. We obtained a CT of her arm and a UE doppler to evaluate her swelling. She has lots of edema and possibly a bit of blood loss, but no major hematoma or VTE. She is now being more cognizant of keeping her arm elevated and her edema has gone down dramatically. She has no bleeding elsewhere. She feels well and is anxious to go home. Review of Systems Review of Systems: All systems reviewed & are unremarkable except as noted in HPI & below Physical Exam Constitutional: well developed and comfortable; no acute distress ENMT: external ear and nose normal, oropharynx normal Respiratory: normal respiratory effort, lungs clear to auscultation Cardiovascular: RRR, no murmur, no edema Gastrointestinal (Abdomen): normal bowel sounds, soft, nontender, no hepatosplenomegaly Musculoskeletal: Her RUE is in a sling. It is considerably less edematous and dusky today. Skin: no rashes, warm and dry Psychiatric: A+Ox3, euthymic affect Results & Data Vital Signs (Past 12 Hours) Vital Signs Temp Pulse Pulse Resp BP BP Pulse Ox 11/28/18 10:54 36.5 C 96 H 18 118/74 97 11/28/18 09:00 89 11/28/18 07:35 36.3 C L 72 18 125/75 97 11/28/18 04:00 36.6 C 99 H 18 111/78 99
[2018-11-28] MEDS ORDERED: OXYCODONE/ACETAMINOPHEN 5mg/325mg TAB PO PRN (15:55)
--- NOTE | 2018-11-28 16:03 | Hospitalist Progress Note ---
Date of Service November 28, 2018 Assessment & Plan (1) Pain of right upper extremity: Much improved overnight CT of right upper extremity shows no evidence of hematoma/bleeding-diffuse soft tissue swelling Right upper extremity ultrasound: Shows no evidence of DVT Appreciate input from orthopedics and hematology oncology Continue pain control Patient getting daily von Willebrand factor infusion by hematology (2) Fall: Mechanical fall she was pushed down by her guide dog Landed on her right side leading to fracture of humerus (3) Fracture, humerus: S/P mechanical fall at home. CT scan of R humerus reveals mildly displaced and angulated proximal mid diaphyseal fracture of the right humerus with cortical fragment Xray of Right shoulder showed displaced angulated oblique fracture of the humerus extending from the humeral neck to the junction of the proximal and middle one third. Status post right shoulder ORIF, postoperative day #5 CT of right upper extremity done on 11/27/2018: Shows well aligned repair of humerus fracture, no evidence of hematoma Appreciate input from orthopedics (4) Gastroparesis: Denies of any symptoms of abdominal pain or bloating (5) Peptic ulcer disease: Continue PPI Stable (6) Seizure disorder: Continue Keppra and gabapentin Stable (7) Depression: Stable (8) Anxiety: Continue Ativan prn (9) Von Willebrand disease: Pt has type 2 Von Willibrand disease Appreciate hematology input and recommendation Patient getting daily for Von Willebrand factor /Humate-P infusion Needs total 7-14 days of treatment Outpatient infusion will be arranged by hematology when patient is discharged (10) DVT prophylaxis: On SCDs (Due to Type 2 Von Willibrand disease) No Anticoagulant (11) Anemia: History of chronic anemia requiring intermittent PRBC transfusion Had a minimum blood loss during surgery does not qualify for post op/acute blood loss anemia Status post 1 unit of PRBC transfusion, Hemoglobin improved from >9 With improvement of tachycardia Follow H&H CODE STATUS: Full code Disposition: Possible discharge home on Friday if remains clinically stable Subjective Right hand and arm swelling and pain much improved today, patient able to move her wrist, Pain is adequately controlled Fever chills No evidence of bleeding, H&H remained stable Physical Exam Constitutional: WD/WN, vitals as above no acute distress Eyes: PERRL, conjunctivae normal, anicteric sclerae ENMT: external ear and nose normal, oropharynx normal Neck: trachea midline, no thyromegaly Respiratory: normal respiratory effort, lungs clear to auscultation Cardiovascular: Rate/Rhythm: regular rate and regular rhythm Gastrointestinal (Abdomen): normal bowel sounds, soft, nontender, no hepatosplenomegaly Musculoskeletal: Right humerus fracture, status post surgery, on immobilizer/sling, improved swelling of right hand and arm, minimal pain with movement Neurologic: PERRL, EOMI, accommodation nl, no face palsy, no dysarthria Psychiatric: A+Ox3, euthymic affect Results & Data Vital Signs (Past 12 Hours) Vital Signs Temp Pulse Pulse Resp BP BP Pulse Ox 11/28/18 15:51 36.7 C 93 H 18 113/81 98 11/28/18 15:31 100 H 11/28/18 10:54 36.5 C 96 H 18 118/74 97 11/28/18 09:00 89 11/28/18 07:35 36.3 C L 72 18 125/75 97 11/28/18 04:00 36.6 C 99 H 18 111/78 99 (1) Anemia Anemia type: unspecified type Qualified Code(s): D64.9 - Anemia, unspecified (2) Fracture, humerus Encounter type: initial encounter Fracture morphology: unspecified fracture morphology Fracture type: closed Humerus Location: proximal Laterality: right Qualified Code(s): S42.201A - Unspecified fracture of upper end of right humerus, initial encounter for closed fracture (3) Fall Encounter type: initial encounter Qualified Code(s): W19.XXXA - Unspecified fall, initial encounter
[2018-11-28] MEDS ORDERED: [UNRECOGNIZED DRUG - MIXTURE] IV ONE (21:00)
[2018-11-28] MEDS: SENNA 8.6 MG TAB PO SCH (21:14)
[2018-11-29] MEDS: HEPARIN 100 UNIT/ML 5ML FLUSH FLUSH PRN ×4 (00:04→22:01)
[2018-11-29] MEDS: HYDROmorphone INJ 1 MG/ML SYRINGE IV PRN ×4 (04:06→22:01)
[2018-11-29] MEDS: PROMETHAZINE HCL 12.5 MG in SODIUM CHLORIDE 0.9% 50 ML IV PRN (08:14)
[2018-11-29] MEDS: MULTIVITAMIN TAB PO SCH (08:22)
[2018-11-29] MEDS: PANTOprazole 40 MG TAB PO SCH ×2 (08:22→22:03)
[2018-11-29] MEDS: GABAPENTIN 400 MG CAP PO SCH ×3 (08:22→22:02)
[2018-11-29] MEDS: DOCUSATE SODIUM/SENNA 50/8.6MG TAB PO SCH (08:22)
[2018-11-29] MEDS: FEXOFENADINE HCL 180 MG TAB PO SCH (08:23)
[2018-11-29] MEDS: levETIRAcetam 500 MG TAB PO SCH ×2 (08:23→22:02)
[2018-11-29] MEDS: DOCUSATE SODIUM 100 MG CAP PO SCH ×2 (08:23→22:02)
[2018-11-29] MEDS: POLYETHYLENE (MIRALAX) 17 GM PACK PO SCH (08:23)
--- NOTE | 2018-11-29 10:34 | Hematology/Oncology Prog Note ---
Date of Service November 29, 2018 Assessment & Plan (1) Von Willebrand disease: As noted before, her right arm swelling appears to be dependent edema. She is keeping her arm better elevated and the swelling is down, though it is up a bit again today. She will need to continue moving the arm as much as possible. We will also continue the Humate-P to complete a 7-14 day course. I think we can continue with once daily dosing for now, in the absence of additional bleeding, at a dose of 40 mg/kg daily. We will keep her through the weekend and make arrangements for home infusion of the Humate on Friday. Present on Admission?: Yes Subjective Ms. Palomino has noticed a modest increase in her swelling today. It is a bit more sore as well, though less so than the other day when we got a CT. She is keeping it more elevated but has not been moving it as much as she was instructed to. She is very anxious to go home. 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 Ear, Nose, Mouth, Throat: no epistaxis and no bleeding gums Respiratory: no cough and no dyspnea Cardiovascular: + edema (in her right hand, slightly worse than yesterday); no chest pain Gastrointestinal: no abdominal pain and no blood in stools Genitourinary: no dysuria and no hematuria Musculoskeletal: + swelling (in her right hand) Right upper arm pain from her fracture, increased from yesterday Integumentary: scattered bruises and abrasions from her fall, stable Hematologic / Lymphatic: + easy bleeding and + easy bruising Physical Exam Constitutional: well developed and comfortable; no acute distress ENMT: external ear and nose normal, oropharynx normal Respiratory: normal respiratory effort, lungs clear to auscultation Cardiovascular: RRR, no murmur, no edema Gastrointestinal (Abdomen): normal bowel sounds, soft, nontender, no hepatosplenomegaly Musculoskeletal: Swelling in her right hand is modestly increased from yesterday. Her fingers are warm and her capillary refill is brisk. Skin: no rashes, warm and dry Psychiatric: A+Ox3, euthymic affect Results & Data Vital Signs (Past 12 Hours) Vital Signs Temp Pulse Resp BP Pulse Ox 11/29/18 07:44 36.8 C 92 H 18 103/72 97 11/28/18 23:52 36.9 C 130 H 20 104/73 99
--- NOTE | 2018-11-29 10:59 | Orthopedic Progress Note ---
Date of Service November 29, 2018 Assessment & Plan (1) Fracture, humerus: POD#5 ORIF Humerus Fx NWB RUE Sling to RUE;Ice to surgical sight. Elevation of arm as best as possible Dressing change today. Stable from Ortho standpoint. Will sign off at this time. Follow up with Dr. Quintanilla's clinic 2 wks from surgery. Right hand swelling/erythema -much improved Subjective Right hand and arm swelling and pain much improved today, patient able to move her wrist, Pain is adequately controlled Fever chills No evidence of bleeding, H&H remained stable Physical Exam Constitutional: WD/WN, vitals as above Musculoskeletal: Shoulder: + surgical incision (Well approximated. No erythema. No drainage. ); shoulder normal to inspection Psychiatric: A+Ox3, euthymic affect Results & Data Vital Signs (Past 12 Hours) Vital Signs Temp Pulse Resp BP Pulse Ox 11/29/18 07:44 36.8 C 92 H 18 103/72 97 11/28/18 23:52 36.9 C 130 H 20 104/73 99 (1) Fracture, humerus Encounter type: initial encounter Fracture morphology: unspecified fracture morphology Fracture type: closed Humerus Location: proximal Laterality: right Qualified Code(s): S42.201A - Unspecified fracture of upper end of right humerus, initial encounter for closed fracture
[2018-11-29] MEDS ORDERED: [UNRECOGNIZED DRUG - MIXTURE] IV ONE (12:00)
[2018-11-29] MEDS ORDERED: OXYCODONE HCL IR 5 MG TAB (IMMEDIATE RELEASE) PO PRN (16:41)
[2018-11-29] MEDS ORDERED: OXYCODONE/ACETAMINOPHEN 5mg/325mg TAB PO PRN (16:42)
--- NOTE | 2018-11-29 16:55 | Hospitalist Progress Note ---
Date of Service November 29, 2018 Assessment & Plan (1) Pain of right upper extremity: Continues to improve CT of right upper extremity shows no evidence of hematoma/bleeding-diffuse soft tissue swelling Right upper extremity ultrasound: Shows no evidence of DVT Appreciate input from orthopedics and hematology oncology Continue pain control Patient getting daily von Willebrand factor infusion by hematology (2) Fall: Mechanical fall she was pushed down by her guide dog Landed on her right side leading to fracture of humerus Status post ORIF of right humerus (3) Fracture, humerus: S/P mechanical fall at home. CT scan of R humerus reveals mildly displaced and angulated proximal mid diaphyseal fracture of the right humerus with cortical fragment Xray of Right shoulder showed displaced angulated oblique fracture of the humerus extending from the humeral neck to the junction of the proximal and middle one third. Status post right shoulder ORIF on 11/24/2018 , postoperative day #5 CT of right upper extremity done on 11/27/2018: Shows well aligned repair of humerus fracture, no evidence of hematoma Appreciate input from orthopedics (4) Gastroparesis: Denies of any symptoms of abdominal pain or bloating (5) Peptic ulcer disease: Continue PPI Stable (6) Seizure disorder: Continue Keppra and gabapentin Stable (7) Depression: Stable (8) Anxiety: Continue Ativan prn (9) Von Willebrand disease: Pt has type 2 Von Willibrand disease Appreciate hematology input and recommendation Patient getting daily for Von Willebrand factor /Humate-P infusion Needs total 7-14 days of treatment Per hematology oncology: Continue with once daily dosing for now, in the absence of additional bleeding, at a dose of 40 mg/kg daily. Outpatient infusion will be arranged by hematology as patient is discharged home on Friday (10) DVT prophylaxis: On SCDs (Due to Type 2 Von Willibrand disease) No Anticoagulant (11) Anemia: History of chronic anemia requiring intermittent PRBC transfusion Had a minimum blood loss during surgery does not qualify for post op/acute blood loss anemia Status post 1 unit of PRBC transfusion, Hemoglobin improved from >9 With improvement of tachycardia Follow H&H CODE STATUS: Full code Disposition: Possible discharge home on Friday if remains clinically stable Subjective Right hand and arm swelling and pain much improved today, patient able to move her wrist, Pain is adequately controlled Fever chills No evidence of bleeding, H&H remained stable Physical Exam Constitutional: WD/WN, vitals as above no acute distress Eyes: PERRL, conjunctivae normal, anicteric sclerae ENMT: external ear and nose normal, oropharynx normal Neck: trachea midline, no thyromegaly Respiratory: normal respiratory effort, lungs clear to auscultation Cardiovascular: Rate/Rhythm: regular rate and regular rhythm Gastrointestinal (Abdomen): normal bowel sounds, soft, nontender, no hepatosplenomegaly Neurologic: PERRL, EOMI, accommodation nl, no face palsy, no dysarthria Psychiatric: A+Ox3, euthymic affect Results & Data Vital Signs (Past 12 Hours) Vital Signs Temp Pulse Resp BP Pulse Ox 11/29/18 14:58 36.7 C 114 H 18 110/78 98 11/29/18 07:44 36.8 C 92 H 18 103/72 97 (1) Anemia Anemia type: unspecified type Qualified Code(s): D64.9 - Anemia, unspecified (2) Fracture, humerus Encounter type: initial encounter Fracture morphology: unspecified fracture morphology Fracture type: closed Humerus Location: proximal Laterality: right Qualified Code(s): S42.201A - Unspecified fracture of upper end of right humerus, initial encounter for closed fracture (3) Fall Encounter type: initial encounter Qualified Code(s): W19.XXXA - Unspecified fall, initial encounter
[2018-11-29] MEDS: PROMETHAZINE HCL 25 MG TAB PO PRN (17:07)
[2018-11-29] MEDS: ACETAMINOPHEN 1,000 MG/100 ML VIAL IV SCH (17:10)
[2018-11-29] MEDS: SENNA 8.6 MG TAB PO SCH (22:03)
[2018-11-29] MEDS: LORazepam 1 MG TAB PO PRN (23:49)
[2018-11-30] MEDS: ACETAMINOPHEN 1,000 MG/100 ML VIAL IV SCH ×2 (01:17→09:02)
[2018-11-30] MEDS: PROMETHAZINE HCL 25 MG TAB PO PRN (08:52)
[2018-11-30] MEDS: levETIRAcetam 500 MG TAB PO SCH (09:00)
[2018-11-30] MEDS: PANTOprazole 40 MG TAB PO SCH (09:00)
[2018-11-30] MEDS: MULTIVITAMIN TAB PO SCH (09:01)
[2018-11-30] MEDS: GABAPENTIN 400 MG CAP PO SCH ×2 (09:01→13:11)
[2018-11-30] MEDS: DOCUSATE SODIUM/SENNA 50/8.6MG TAB PO SCH (09:01)
[2018-11-30] MEDS: DOCUSATE SODIUM 100 MG CAP PO SCH (09:01)
[2018-11-30] MEDS: POLYETHYLENE (MIRALAX) 17 GM PACK PO SCH (09:02)
[2018-11-30] MEDS: FEXOFENADINE HCL 180 MG TAB PO SCH (09:02)
[2018-11-30] MEDS: HYDROmorphone INJ 1 MG/ML SYRINGE IV PRN ×2 (09:46→14:41)
[2018-11-30] MEDS: HEPARIN 100 UNIT/ML 5ML FLUSH FLUSH PRN (09:46)
[2018-11-30] MEDS ORDERED: [UNRECOGNIZED DRUG - MIXTURE] IV ONE (12:00)
--- NOTE | 2018-11-30 17:22 | Hospitalist Progress Note ---
Date of Service November 30, 2018 Assessment & Plan (1) Pain of right upper extremity: Status post recent fracture of right humerus due to fall Status post ORIF postoperative day #6 Right upper extremity pain has improved markedly CT of right upper extremity shows no evidence of hematoma/bleeding-diffuse soft tissue swelling Right upper extremity ultrasound: Shows no evidence of DVT Appreciate input from orthopedics and hematology oncology Continue pain control Patient was getting daily von Willebrand factor infusion by hematology After long discussion with hematology, no further Von Willebrand factor infusion needed on discharge (2) Fall: Mechanical fall she was pushed down by her guide dog Landed on her right side leading to fracture of humerus Status post ORIF of right humerus (3) Fracture, humerus: S/P mechanical fall at home. CT scan of R humerus reveals mildly displaced and angulated proximal mid diaphyseal fracture of the right humerus with cortical fragment Xray of Right shoulder showed displaced angulated oblique fracture of the humerus extending from the humeral neck to the junction of the proximal and middle one third. Status post right shoulder ORIF on 11/24/2018 , postoperative day #6 CT of right upper extremity done on 11/27/2018: Shows well aligned repair of humerus fracture, no evidence of hematoma Appreciate input from orthopedics Discharge home today with outpatient follow-up with orthopedics (4) Gastroparesis: Denies of any symptoms of abdominal pain or bloating Tolerating diet well (5) Peptic ulcer disease: Continue PPI Stable (6) Seizure disorder: Continue Keppra and gabapentin Stable (7) Depression: Stable (8) Anxiety: Continue Ativan prn (9) Von Willebrand disease: Pt has type 2 Von Willibrand disease Appreciate hematology input and recommendation Patient getting daily for Von Willebrand factor /Humate-P infusion , Total #10 days of treatment No further treatmentHumate-P needed on discharge (10) DVT prophylaxis: On SCDs (Due to Type 2 Von Willibrand disease) No Anticoagulant (11) Anemia: History of chronic anemia requiring intermittent PRBC transfusion Had a minimum blood loss during surgery does not qualify for post op/acute blood loss anemia Status post 1 unit of PRBC transfusion, Hemoglobin improved from >9 With improvement of tachycardia CODE STATUS: Full code Disposition: Stable to be discharged home today Subjective Able to move right arm and hand much better, Holding a knife to cut food using right hand, Pain is much well controlled Patient evaluated by hematology Dr. Lanza earlier, does not need any extended H umate-P,(Antihemophilic Factor/von Willebrand Factor Complex ) No fever or chills Able to be discharged home today Physical Exam Constitutional: WD/WN, vitals as above no acute distress Eyes: PERRL, conjunctivae normal, anicteric sclerae ENMT: external ear and nose normal, oropharynx normal Neck: trachea midline, no thyromegaly Respiratory: normal respiratory effort, lungs clear to auscultation Cardiovascular: Rate/Rhythm: regular rate and regular rhythm Gastrointestinal (Abdomen): normal bowel sounds, soft, nontender, no hepatosplenomegaly Musculoskeletal: Arm swelling much improved, more range of motion Neurologic: PERRL, EOMI, accommodation nl, no face palsy, no dysarthria Psychiatric: A+Ox3, euthymic affect Results & Data Vital Signs (Past 12 Hours) Vital Signs Temp Pulse Pulse Resp BP Pulse Ox 11/30/18 14:41 36.6 C 107 H 101 H 16 113/78 94 11/30/18 07:42 36.6 C 107 H 16 113/78 94 (1) Fall Encounter type: initial encounter Qualified Code(s): W19.XXXA - Unspecified fall, initial encounter (2) Fracture, humerus Encounter type: initial encounter Fracture morphology: unspecified fracture morphology Fracture type: closed Humerus Location: proximal Laterality: right Qualified Code(s): S42.201A - Unspecified fracture of upper end of right humerus, initial encounter for closed fracture (3) Anemia Anemia type: unspecified type Qualified Code(s): D64.9 - Anemia, unspecified
--- NOTE | 2018-11-30 17:23 | Discharge Summary ---
Date of Service November 30, 2018 Admission HPI Per Admitting Provider This is a 48-year-old female who has a known past medical history of von willebrand disease, seizure disorder, peptic ulcer disease, anxiety, depression, gastroparesis, history of gastrectomy, osteoporosis who presents to [facility] ED secondary to mechanical fall at home. Prior to arrival patient was walking her dog however she got tangled up in dog got wrapped around her. She fell on her right shoulder on concrete and had immediate pain. Denies hitting head or LOC. Denies lightheaded, dizziness. Despite analgesia in ED patient continues to complain of significant right upper extremity pain. She states "I have just about everything wrong with me." Denies f/c/s, chest pain, sob, n/v/abdominal pain, change in bowel or urinary habits. States she has hx of gastrectomy with chronic gastroparesis. Daughter and son-in-law at bedside. Principal Diagnosis RIGHT HUMERAL FRACTURE/STATUS POST REPAIR/VON WILLEBRAND'S DISEASE Discharge Data Allergies Allergy/AdvReac Type Severity Reaction Status Date / Time latex Allergy Severe RASH Verified 11/18/18 14:27 tobramycin Allergy Severe BLINDNESS Verified 11/18/18 14:27 ceftriaxone Allergy Intermediate Rash Verified 11/18/18 14:27 Penicillins Allergy Intermediate RASH Verified 11/18/18 14:27 Quinolones Allergy Intermediate RASH Verified 11/18/18 14:27 Sulfa (Sulfonamide Allergy Intermediate HIVES Verified 11/18/18 14:27 Antibiotics) Aminoglycosides Allergy Unknown UNKNOWN Verified 11/18/18 14:27 ciprofloxacin Allergy INSIDE OF Verified 11/18/18 14:27 LIPS BURN & PEEL doxycycline Allergy Hives, Verified 11/18/18 14:27 VOMITING iron dextran complex AdvReac Intermediate SHORT OF Verified 11/18/18 14:27 BREATH W/ HEART RACING lactose AdvReac Intermediate NAUSEA, GI Verified 09/25/18 01:44 UPSET citalopram AdvReac RESTLESS Verified 09/25/18 01:44 Ferric Oxide AdvReac Intermediate HIVES Uncoded 09/25/18 01:44 Consultations 11/18/18 18:15 Consult Orthopedic Surgery Stat 11/18/18 19:50 ED Decision to Admit Stat 11/18/18 21:00 Consult Case Management - Discharge Planning Routine Consult Orthopedic Surgery Routine 11/23/18 17:33 Consult Hematology Routine 11/24/18 19:13 Consult Case Management - Discharge Planning Routine Procedures Performed Operation Date: 11/24/18 07:00 Actual Procedures p Open Reduction Internal Fixation Right Humeral Fracture(Right) - Abdiaziz Quintanilla MD Ordered Studies 11/18/18 15:36 CT humerus RT wo con Stat 11/24/18 14:30 FL fluoroscopy <1hr Routine FL humerus RT 2V Routine 11/27/18 12:39 CT hand RT w con Stat 11/27/18 12:44 CT forearm RT w con Stat 11/27/18 12:47 CT humerus RT w con Stat 11/27/18 15:12 US venous doppler UE RT Stat Hospital Course (1) Pain of right upper extremity: Status post recent fracture of right humerus due to fall Status post ORIF postoperative day #6 Right upper extremity pain has improved markedly CT of right upper extremity shows no evidence of hematoma/bleeding-diffuse soft tissue swelling Right upper extremity ultrasound: Shows no evidence of DVT Appreciate input from orthopedics and hematology oncology Continue pain control Patient was getting daily von Willebrand factor infusion by hematology After long discussion with hematology, no further Von Willebrand factor infusion needed on discharge (2) Fall: Mechanical fall she was pushed down by her guide dog Landed on her right side leading to fracture of humerus Status post ORIF of right humerus (3) Fracture, humerus: S/P mechanical fall at home. CT scan of R humerus reveals mildly displaced and angulated proximal mid diaphyseal fracture of the right humerus with cortical fragment Xray of Right shoulder showed displaced angulated oblique fracture of the humerus extending from the humeral neck to the junction of the proximal and middle one third. Status post right shoulder ORIF on 11/24/2018 , postoperative day #6 CT of right upper extremity done on 11/27/2018: Shows well aligned repair of humerus fracture, no evidence of hematoma Appreciate input from orthopedics Discharge home today with outpatient follow-up with orthopedics (4) Gastroparesis: Denies of any symptoms of abdominal pain or bloating Tolerating diet well (5) Peptic ulcer disease: Continue PPI Stable (6) Seizure disorder: Continue Keppra and gabapentin Stable (7) Depression: Stable (8) Anxiety: Continue Ativan prn (9) Von Willebrand disease: Pt has type 2 Von Willibrand disease Appreciate hematology input and recommendation Patient getting daily for Von Willebrand factor /Humate-P infusion , Total #10 days of treatment No further treatmentHumate-P needed on discharge (10) DVT prophylaxis: On SCDs (Due to Type 2 Von Willibrand disease) No Anticoagulant (11) Anemia: History of chronic anemia requiring intermittent PRBC transfusion Had a minimum blood loss during surgery does not qualify for post op/acute blood loss anemia Status post 1 unit of PRBC transfusion, Hemoglobin improved from >9 With improvement of tachycardia CODE STATUS: Full code Disposition: Stable to be discharged home today Total Time Total Time Spent Total Time Spent (In Minutes): Approximately 40 minutes Total Time Includes: Examination of the Patient, Discharge Planning, Medication Reconciliation and Communication With Other Providers Discharge Plan Discharge Items Patient Disposition: Home - Home Health Services Reason For Visit: R HUMERAL FRACTURE Discharge Diagnosis: RIGHT HUMERAL FRACTURE/STATUS POST REPAIR/VON WILLEBRAND'S DISEASE Discharge Goals: Decrease discomfort and Therapeutic intervention Activity: As commented below Activity Comment: Do not lift weight on right hand for next 3-4 weeks Weightbearing: Right non-weightbearing Weightbearing Comment: on the right upper extremity Non-emergency contact: Primary Care Provider Call non-emergency contact if: you have any medication questions Follow-up/Referrals: Jaspal Bae MD [Primary Care Provider] - 12/04/18 10:45 am Abdiaziz Quintanilla MD [Surgeon] - (Call to make a follow up with Dr. Quintanilla's clinic for ~2 weeks from surgery.) Diet: Regular Addtl Provider Instructions: [facility] DISCHARGE INSTRUCTIONS: HUMERUS FRACTURE REPAIR SELF CARE INSTRUCTIONS A. You are permitted to loosen your sling/immobilizer to move your elbow, wrist, and hand to prevent stiffness. You should use your well arm (good arm) to assist the operated extremity when trying to raise the arm away from the body, hygiene purposes. Do NOT actively try to use/engage your shoulder muscles in operative arm at this time. You should NOT do overhead activity, lifting, or attempt to reach behind your back. B. You may/may not be instructed to start Physical Therapy upon discharge depending upon the size and difficulty of the repair. You will be provided a prescription for therapy with specific restrictions, if needed, at time of discharge. NO PHYSICAL THERAPY AT THIS TIME. C. At 1 week post-operatively, you may change your dressing. (Leave white steri- strips intact if present). Use band-aids and change daily. You are allowed to shower at this time and get the incision area wet, but DO NOT soak or submerge incision area in water. (No baths, swimming pools, hot tubs) D. Do NOT apply soap or any ointment/lotions directly over incision. E. You may use ice as needed to operative shoulder SPECIAL CARE INSTRUCTIONS: VERY IMPORTANT TO READ AND REVIEW A. There are a few signs you need to watch for after you are home. Call [facility] at [phone] if you experience any of the following: a. Increased severe shoulder pain. Some pain is expected especially when you exercise b. Increased swelling in your shoulder or arm; pain or swelling in either upper extremity. (Note: swelling and stiffness is normal and expected for several weeks post op, depending on type of shoulder surgery you had). c. Any fluid or drainage from the incision; redness of the incision. d. Shortness of breath or chest pain. B. Please call [facility] at [phone] if you have any questions or concerns about your operation or recovery. C. Call your physician if: a. Temperature is greater than 101 degrees (F). b. Pain is not relieved by prescribed pain medications. c. Increase drainage or redness from incision. d. Unanswered questions or concerns. D. Pain Medication: a. You will be prescribed pain medication upon discharge that should last till your first post-operative appointment. b. If you experience nausea and/or skin rash, discontinue this medication and contact our office for an alternative medication. c. Caution- narcotic pain medication can cause constipation. FOLLOW UP VISIT: Please call [facility] at [phone] to schedule a follow up appointment 14 days from your surgery date. Prescriptions: New oxycodone 5 mg Tablet 5 mg PO Q4 PRN (Reason: pain) Qty: 20 RF: 0 Continued trazodone 50 mg Tablet 50 mg PO HS PRN (Reason: Sleep) RF: 0 levetiracetam [Keppra] 500 mg tablet 1,500 mg PO BID RF: 0 zoledronic hcho-unkazpue-pfbln [Reclast] 5 mg/100 mL Piggyback 5 mg IV YEARLY RF: 0 gabapentin 400 mg capsule 400 mg PO TID RF: 0 lorazepam 1 mg tablet 1 mg PO Q8H PRN (Reason: Anxiety) RF: 0 albuterol sulfate 90 mcg/actuation HFA aerosol inhaler 2 puff Inhalation QID PRN (Reason: Shortness Of Breath) RF: 0 cyclobenzaprine 5 mg tablet 5 mg PO TID PRN (Reason: Muscle Spasm) RF: 0 fexofenadine 180 mg Tablet 180 mg PO QAM RF: 0 furosemide 20 mg tablet 40 mg PO DIRECTED PRN (Reason: Edema) RF: 0 pantoprazole 40 mg tablet,delayed release (DR/EC) 40 mg PO BID RF: 0 promethazine 25 mg tablet 25 mg PO Q8 PRN (Reason: Nausea And Vomiting) RF: 0 montelukast [Singulair] 10 mg tablet 10 mg PO QAM PRN (Reason: Allergy Symptoms) RF: 0 potassium chloride 10 mEq tablet,ER particles/crystals 20 meq PO DIRECTED PRN (Reason: when taking lasix) RF: 0 Stand-Alone Forms: [facility]/Other Patient Handouts: Fx Arm Open Redu Acid Patroller Fix Discharge Orders: Discharge Order (Routine); Ordered 11/30/18 Ordered By: Terra Alberto Admission Data Admit Date/Time: 11/20/18 17:30 Attending Provider: Terra Alberto Admit Provider: Beau Alberto Primary Care Provider: Jaspal Bae Other Providers: Chuy Escamilla ; Jose Alonso ; Beau Alberto ; Beto Suazo Service: Medical Other Interventions: Discharge Summary Assessment (RN) Last Done: 11/30/18 14:41 DC Date/Time DO NOT enter until pt leaves facility: 11/30/18 17:13
== END 2018-11-30 17:13 | disposition home health service (06) | DRG 493 ==
LOC: ED 14:12 → 2N 14:12 → SUATTDRO 11-20 17:30

== ENCOUNTER 2019-05-06 11:02 | Inpatient (IN) ==
[2019-05-06] MEDS ORDERED: LACTATED RINGER'S 500 ML IV ONE (11:10)
[2019-05-06] MEDS ORDERED: SODIUM CHLORIDE 0.9% 1000ML 1,000 ML IV ONE (11:33)
[2019-05-06] MEDS ORDERED: THIAMINE HCL 200 MG in SODIUM CHLORIDE 0.9% 50 ML IV STA (11:33)
[2019-05-06 11:54] LABS: Base Excess VBG -2.7 mEq/L; pH VBG 7.35 (7.36-7.41)
--- NOTE | 2019-05-06 12:02 | XRay Report ---
XR chest 1V portable HISTORY: 48 years-old Female SEPSIS acute sepsis COMPARISON: Chest radiograph 11/18/2018 TECHNIQUE: Portable AP view of the chest FINDINGS: Cardiac mediastinal and hilar silhouettes are unchanged. Stable positioning of the right IJ Infuse-a- Port catheter. No pneumothorax, pleural effusion or overt pulmonary edema. No focal airspace consolid ation typical for pneumonia. ORIF changes of the right humerus with healing subacute chronic mid marciano ral fracture deformity. Mild convex left curvature of the mid to lower thoracic spine. IMPRESSION: ACT 112: Negative or not required by law. The above report was generated using voice recognition software. It may contain grammatical, syntax o r spelling errors. Electronically signed by: Scott Blanco M.D. 05/06/2019 12:01 PM
--- NOTE | 2019-05-06 12:03 | Emergency Department Note ---
Entered by Marcelo Martinez acting as a scribe for Erickson Marti DO History of Present Illness General Chief complaint: Altered Mental Status Time Seen by Provider: 05/06/19 11:07 Source: patient and EMS History of Present Illness Provider complaint: Altered mental status Onset (ago): day(s) (Couple of days ) Location: head Pain Consistency: + constant Relieved By: + none Associated symptoms: + other (Right leg pain) The patient is a 48 year old female who presents to the Emergency Room with complaints of constant altered mental status that started a couple of days ago. Per the nurse, the patient was found by family on the ground and she was initi ally hesitant to come to the ED. The patient has a history of alcoholism as well as frequent falls. The patient denies any alcohol use today and notes her last alcoholic beverage was 3 days ago. The patient has bilateral leg swelling and is also complaining of right leg pain that started about 3 days ago. HPI is limited secondary to patient's altered mental status. Home Medications Home Medications Medication Instructions Recorded Confirmed Type cyclobenzaprine 5 mg PO TID PRN 01/29/18 05/06/19 History fexofenadine 180 mg PO QAM 01/29/18 05/06/19 History furosemide [Lasix] 40 mg PO DAILY PRN 01/29/18 05/06/19 History montelukast [Singulair] 10 mg PO QAM PRN 01/29/18 05/06/19 History pantoprazole [Protonix] 40 mg PO BID 01/29/18 05/06/19 History potassium chloride [Klor-Con M10] 20 meq PO DAILY PRN 01/29/18 05/06/19 History promethazine 25 mg PO TIDM PRN 01/29/18 05/06/19 History levetiracetam [Keppra] 1,500 mg PO BID 07/07/18 05/06/19 History trazodone 50 mg PO HS PRN 07/07/18 05/06/19 History gabapentin 400 mg PO TID 11/18/18 05/06/19 History lorazepam [Ativan] 1 mg PO HS 11/18/18 05/06/19 History teriparatide [Forteo] 20 mcg SUBCUT DAILY 03/18/19 05/06/19 History Allergies Allergy/AdvReac Type Severity Reaction Status Date / Time iron dextran complex Allergy Severe SOB, heart Verified 05/06/19 14:34 racing (see comments) cat dander Allergy Intermediate eye Verified 05/06/19 14:34 watering ceftriaxone Allergy Intermediate Hives Verified 05/06/19 14:34 ciprofloxacin Allergy Intermediate lips Verified 05/06/19 14:34 burning/peeling doxycycline Allergy Intermediate hives, Verified 05/06/19 14:34 vomiting latex Allergy Intermediate mouth Verified 05/06/19 14:34 hives/burning sensation Penicillins Allergy Intermediate Hives Verified 05/06/19 14:34 Quinolones Allergy Intermediate Hives Verified 05/06/19 14:34 Sulfa (Sulfonamide Allergy Intermediate hives Verified 05/06/19 14:34 Antibiotics) Aminoglycosides Allergy Unknown unknown Verified 05/06/19 14:34 reaction tobramycin AdvReac Severe blindness Verified 05/06/19 14:34 lactose AdvReac Intermediate nausea, GI Verified 05/06/19 14:34 upset citalopram AdvReac Mild restlessnes Verified 05/06/19 14:34 s Ferric Oxide Allergy Intermediate hives (see Uncoded 05/06/19 14:34 comments) Past Med/Surg History Medical History Anemia hx of blood transfusion (post-operatively 10/2018) Anxiety 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 Lanza Surgical History H/O foot surgery RT HEEL SURGERY X 2 (HARDWARE INTACT) TOE CORRECTION X 3 (PINS INTACT ON RT FOOT) H/O shoulder surgery RT HUMERUS FX REPAIRED (HARDWARE INTACT) H/O wisdom tooth extraction H/O wrist surgery LEFT WRIST X 2 SURGERIES History of cholecystectomy History of colonoscopy History of esophagogastroduodenoscopy (EGD) History of gastrectomy secondary to PUD (OVER 10 YEARS AGO) History of hand surgery LEFT HAND FINGER REPAIR History of hysterectomy (Acute) History of vascular access device MEDIPORT INTACT Family History Father Diabetes Mother Von Willebrand disease Grandmother (Paternal) Family hx of colon cancer Social History Preferred Language: [place] Communication Ability: Effective Basket Grader Required: No Beliefs That Will Affect Care: None marital status: Current Living Situation: Alone current occupational status: disabled Other Information That Helps Us Care for You: No Feels Safe at Home: Yes Safety Concerns: Feels Safe At This Time Smoking Status: Never smoker Second Hand Exposure: No ; Hx Alcohol Use: Yes Alcohol type: wine Hx Substance Use: No Review of Systems See HPI for pertinent positives & negatives. Other (Limited secondary to patient's altered mental status ) Physical Exam Vital Signs Vital Signs - 24 hr 05/06/19 10:50 05/06/19 11:53 05/06/19 12:00 Temperature 36.7 C Temperature Source Oral Pulse Rate 94 H 100 H Pulse Rate from SpO2 Sensor 92 H Respiratory Rate 24 19 Respiratory Effort / Characteristics Non-Labored Spontaneous Respiratory Depth Normal Respiratory Pattern Regular Blood Pressure 113/97 Blood Pressure Mean 102 Pulse Oximetry 97 100 98 Oxygen Delivery Method Room Air Room Air Sepsis Recent Fever Within 48 Hours No Sepsis New/Unexplained Change in Mental Status No Sepsis Action Taken by Nursing No Action Required 05/06/19 13:00 05/06/19 14:00 Temperature Temperature Source Pulse Rate 108 H 102 H Pulse Rate from SpO2 Sensor 94 H Respiratory Rate 20 21 Respiratory Effort / Characteristics Respiratory Depth Respiratory Pattern Blood Pressure 113/79 Blood Pressure Mean 90 Pulse Oximetry 97 Oxygen Delivery Method Sepsis Recent Fever Within 48 Hours Sepsis New/Unexplained Change in Mental Status Sepsis Action Taken by Nursing GENERAL: Patient is awake and alert. She is somewhat anxious appearing. There is an odor of alcohol noted. EYES: The conjunctivae are clear. The pupils are round. Facial plethora was noted. EARS, NOSE, MOUTH AND THROAT: The nose is without any evidence of any deformity. Mucous membranes are dry. NECK: The neck is nontender and supple. RESPIRATORY: Shallow respirations were noted. There were rales at both bases. CARDIOVASCULAR: Regular rate and rhythm noted there no murmurs rubs or gallops normal S1 normal S2. GASTROINTESTINAL: The abdomen is soft and mildly distended. There is diffuse tenderness to palpation but no guarding rigidity. BACK: No midline tenderness or or step-off noted range of motion in flexion extension as well as rotation no signs of muscle spasm noted MUSCULOSKELETAL/EXTREMITIES: Patient has pain with range of motion testing of the right lower extremity. There is no deformity. The patient has diffuse pain over her upper extremities. There is ecchymosis over both upper and lower extremities that is in varying stages. SKIN: Trace pedal edema was noted bilaterally. NEUROLOGIC: Patient is oriented to person place and situation. There was no facial droop. There is no drift in the upper extremities. Course Course 1120: Past medical records reviewed. The patient was evaluated in room C06, and a complete history and physical examination were performed. 1347: I reevaluated the patient and she is resting in bed. I updated her on test results and treatment plan. She agreed. 1352: I spoke to Dr. Gavin James about the patient's case and he is going to accept her for further evaluation. Consultations Consultation #1: I spoke to Dr. Gavin James about the p sanna's case and he is going to accept her for further evaluation. Time: 13:52 Administered Medications Fexofenadine HCl (Maame) 180 mg PO QAM [facility] Stop: 06/06/19 08:59 Last Admin: 05/07/19 11:20 Dose: 180 mg Documented by: [id number] Folic Acid (Folvite) 1 mg PO QAM [facility] Stop: 06/06/19 08:59 Last Admin: 05/07/19 11:20 Dose: 1 mg Documented by: [id number] Sodium Chloride (Nss 1000ml) 1,000 mls @ 100 mls/hr IV .Q10H [facility] Stop: 06/05/19 18:07 Last Admin: 05/07/19 05:27 Dose: 100 mls/hr Documented by: [id number] Infusion: 05/07/19 05:27 Dose: 100 mls/hr Documented by: [id number] Admin: 05/06/19 19:33 Dose: 100 mls/hr Documented by: [id number] Lorazepam (Ativan) 0.25 mg in 0.5 mls @ 0.5 mls/min IV Q4H PRN PRN Reason: Anxiety Stop: 06/06/19 07:16 Last Admin: 05/07/19 11:32 Dose: 0.5 mls/min Documented by: [id number] Levetiracetam (Keppra) 1,500 mg PO BID [facility] Stop: 06/05/19 20:59 Last Admin: 05/07/19 07:39 Dose: 1,500 mg Documented by: [id number] Admin: 05/06/19 20:30 Dose: 1,500 mg Documented by: [id number] Lorazepam (Ativan) 1 mg PO HS [facility] Stop: 06/05/19 20:59 Last Admin: 05/06/19 20:30 Dose: 1 mg Documented by: [id number] Miscellaneous (Order Awaiting Action) 1 ea N/A QS [facility] Stop: 06/06/19 00:00 Last Admin: 05/07/19 11:23 Dose: Not Given Documented by: [id number] Admin: 05/06/19 23:15 Dose: Not Given Documented by: [id number] Nitrofurantoin Macrocrystals (Macrobid) 100 mg PO BID [facility] Stop: 05/12/19 08:59 Last Admin: 05/07/19 11:20 Dose: 100 mg Documented by: [id number] Oxycodone HCl (Roxicodone Immediate Rel) 5 mg PO Q4H PRN PRN Reason: Pain Stop: 05/20/19 18:07 Last Admin: 05/07/19 11:32 Dose: 5 mg Documented by: [id number] Admin: 05/07/19 06:43 Dose: 5 mg Documented by: [id number] Admin: 05/07/19 01:55 Dose: 5 mg Documented by: [id number] Admin: 05/06/19 20:35 Dose: 5 mg Documented by: [id number] Pantoprazole Sodium (Protonix) 40 mg PO BID [facility] Stop: 06/05/19 20:59 Last Admin: 05/07/19 11:20 Dose: 40 mg Documented by: [id number] Admin: 05/06/19 20:31 Dose: 40 mg Documented by: [id number] Promethazine HCl (Phenergan) 25 mg PO TIDM PRN PRN Reason: Nausea And Vomiting Stop: 06/05/19 18:07 Last Admin: 05/07/19 09:03 Dose: 25 mg Documented by: [id number] Thiamine HCl (Vitamin B-1) 100 mg PO QAM [facility] Stop: 06/06/19 08:59 Last Admin: 05/07/19 11:20 Dose: 100 mg Documented by: [id number] Discontinued Medications Gabapentin (Neurontin) 1,200 mg PO TODAY@1800 [facility] Stop: 05/06/19 18:01 Last Admin: 05/06/19 18:12 Dose: 1,200 mg Documented by: [id number] Gabapentin (Neurontin) 800 mg PO NOW ONE Stop: 05/06/19 20:01 Last Admin: 05/06/19 20:30 Dose: 800 mg Documented by: [id number] Gabapentin (Neurontin) 400 mg PO Q6H [facility] Stop: 05/07/19 08:01 Last Admin: 05/07/19 07:38 Dose: 400 mg Documented by: [id number] Admin: 05/07/19 01:56 Dose: 400 mg Documented by: [id number] Lactated Ringer's (Lr) 500 mls @ 999 mls/hr IV .Q31M ONE Stop: 05/06/19 11:40 Last Infusion: 05/06/19 12:33 Dose: 0 mls/hr Documented by: [id number] Admin: 05/06/19 12:02 Dose: 999 mls/hr Documented by: [id number] Sodium Chloride (Nss 1000ml) 1,000 mls @ 999 mls/hr IV .Q1H1M ONE Stop: 05/06/19 12:33 Last Infusion: 05/06/19 13:07 Dose: 0 mls/hr Documented by: [id number] Admin: 05/06/19 12:02 Dose: 999 mls/hr Documented by: [id number] Thiamine HCl 200 mg/ Sodium (Chloride) 52 mls @ 208 mls/hr IV NOW STA Stop: 05/06/19 11:47 Last Infusion: 05/06/19 12:33 Dose: 0 mls/hr Documented by: [id number] Admin: 05/06/19 12:02 Dose: 208 mls/hr Documented by: [id number] Ioversol (Optiray 320 125ml) 118 ml IV ONCE PRN PRN Reason: Interaction Checking Stop: 05/10/19 13:19 Last Admin: 05/06/19 13:21 Dose: 118 ml Documented by: [id number] Lorazepam (Ativan) 0.5 mg PO NOW STA Stop: 05/07/19 07:16 Last Admin: 05/07/19 07:37 Dose: 0.5 mg Documented by: [id number] Oxycodone HCl (Roxicodone Immediate Rel) 5 mg PO NOW STA Stop: 05/07/19 07:16 Last Admin: 05/07/19 07:37 Dose: 5 mg Documented by: [id number] Medical Decision Making Differential Diagnosis Differential diagnoses include major intracranial, cervical, spinal, thoracic, abdominal, pelvic and neurologic injury. Fracture, contusion, sprain, strain, laceration, abrasions included as well. Medical Records Attestation: I reviewed the patient's medical records. Home Medications Current Medication List: was personally reviewed by me Laboratory Data Attestation: I reviewed the patient's lab results. Result diagrams: 05/07/19 13:45 05/07/19 03:09 Lab Results 05/06/19 05/06/19 05/06/19 Range/Units 11:43 11:43 11:43 WBC 5.16 (4.8-10.8) K/uL RBC 3.27 L (4.2-5.4) M/uL Hgb 11.1 L (12.0-16.0) g/dL Hct 33.0 L (37-47) % MCV 100.9 H (80-100) fL MCH 33.9 (25-34) pg MCHC 33.6 (32-36) g/dL RDW Std Deviation 58.7 H (36.4-46.3) fL RDW Coeff of Lisa 16.3 H (11.5-14.5) % Plt Count 441 H (130-400) K/uL MPV 9.5 (7.4-10.4) fL Immature Gran % (Auto) 0.6 % Neut % (Auto) 60.0 % Lymph % (Auto) 30.8 % [place] % (Auto) 7.4 % Eos % (Auto) 0.4 % Baso % (Auto) 0.8 % Immature Gran # (Auto) 0.03 H (0.00-0.02) K/uL Neut # (Auto) 3.10 (1.4-6.5) K/uL Lymph # (Auto) 1.59 (1.2-3.4) K/uL [place] # (Auto) 0.38 (0.11-0.59) K/uL Eos # (Auto) 0.02 (0-0.5) K/uL Baso # (Auto) 0.04 (0-0.2) K/uL PT 11.2 (9.0-12.0) Seconds INR 1.1 (0.9-1.1) APTT 34.1 H (21.0-31.0) Seconds PTT Ratio 1.3 VBG pH (7.36-7.41) VBG pCO2 (38-50) mmHg VBG pO2 mmHg VBG HCO3 mmol/L VBG O2 Saturation % VBG Base Excess mEq/L Barometric Pressure mm/Hg Sodium 143 (136-145) mmol/L Potassium 4.0 (3.5-5.1) mmol/L Chloride 111 H (98-107) mmol/L Carbon Dioxide 22 (21-32) mmol/L Anion Gap 11.0 (3-11) BUN 4 L (7-18) mg/dl Creatinine 0.46 L (0.6-1.2) mg/dl Est Cr Clr Drug Dosing Not Reportable Est GFR ( Amer) 135.4 Est GFR (Non-Af Amer) 116.8 BUN/Creatinine Ratio 8.4 L (10-20) Glucose 85 (70-99) mg/dl Osmolality (280-300) mOsm/kg Lactate (0.4-2.0) mmol/L Calcium 8.0 L (8.5-10.1) mg/dl Magnesium 1.8 (1.8-2.4) mg/dl Total Bilirubin 0.6 (0.2-1) mg/dl AST 111 H (15-37) U/L ALT 55 (12-78) U/L Alkaline Phosphatase 172 H (45-117) U/L Total Creatine Kinase 62 (26-192) U/L CK-MB (CK-2) 1.8 (0.5-3.6) ng/ml CK/CKMB % Calc 2.9 (0-3.0) Troponin I 0.018 (0-0.045) ng/ml Total Protein 5.5 L (6.4-8.2) gm/dl Albumin 2.1 L (3.4-5.0) gm/dl Globulin 3.4 (2.5-4.0) gm/dl Albumin/Globulin Ratio 0.6 L (0.9-2) Urine Color Urine Appearance (Clear) Urine pH (4.5-7.5) Ur Specific [place] (1.000-1.030) Urine Protein (Negative) Urine Glucose (UA) (Negative) Urine Ketones (Negative) Urine Blood (Negative) Urine Nitrite (Negative) Urine Bilirubin (Negative) Urine Urobilinogen (Negative) Ur Leukocyte Esterase (Negative) Urine WBC (Auto) (0-5) /hpf Urine RBC (Auto) (0-4) /hpf U Hyaline Cast (Auto) (0-5) /lpf U Epithel Cells (Auto) (0-5) /lpf Urine Bacteria (Auto) (Negative) Salicylates (2.8-20) mg/dl Urine Opiates Screen (Neg) Ur Methadone, Qual (Neg) Acetaminophen (10-30) ug/ml Urine Barbiturates (Neg) Ur Phencyclidine (PCP) (Neg) U Amphetamin/Meth Scrn (Neg) MDMA (Ecstasy) Screen (Neg) U Benzodiazepines Scrn (Neg) Ur Cocaine Metabolite (Neg) U Marijuana (THC) Screen (Neg) Ethyl Alcohol mg/dL (0-3) mg/dl 05/06/19 05/06/19 05/06/19 Range/Units 11:43 11:43 11:43 WBC (4.8-10.8) K/uL RBC (4.2-5.4) M/uL Hgb (12.0-16.0) g/dL Hct (37-47) % MCV (80-100) fL MCH (25-34) pg MCHC (32-36) g/dL RDW Std Deviation (36.4-46.3) fL RDW Coeff of Lisa (11.5-14.5) % Plt Count (130-400) K/uL MPV (7.4-10.4) fL Immature Gran % (Auto) % Neut % (Auto) % Lymph % (Auto) % [place] % (Auto) % Eos % (Auto) % Baso % (Auto) % Immature Gran # (Auto) (0.00-0.02) K/uL Neut # (Auto) (1.4-6.5) K/uL Lymph # (Auto) (1.2-3.4) K/uL [place] # (Auto) (0.11-0.59) K/uL Eos # (Auto) (0-0.5) K/uL Baso # (Auto) (0-0.2) K/uL PT (9.0-12.0) Seconds INR (0.9-1.1) APTT (21.0-31.0) Seconds PTT Ratio VBG pH (7.36-7.41) VBG pCO2 (38-50) mmHg VBG pO2 mmHg VBG HCO3 mmol/L VBG O2 Saturation % VBG Base Excess mEq/L Barometric Pressure mm/Hg Sodium (136-145) mmol/L Potassium (3.5-5.1) mmol/L Chloride (98-107) mmol/L Carbon Dioxide (21-32) mmol/L Anion Gap (3-11) BUN (7-18) mg/dl Creatinine (0.6-1.2) mg/dl Est Cr Clr Drug Dosing Est GFR ( Amer) Est GFR (Non-Af Amer) BUN/Creatinine Ratio (10-20) Glucose (70-99) mg/dl Osmolality 365 H* (280-300) mOsm/kg Lactate 3.8 H* (0.4-2.0) mmol/L Calcium (8.5-10.1) mg/dl Magnesium (1.8-2.4) mg/dl Total Bilirubin (0.2-1) mg/dl AST (15-37) U/L ALT (12-78) U/L Alkaline Phosphatase (45-117) U/L Total Creatine Kinase (26-192) U/L CK-MB (CK-2) (0.5-3.6) ng/ml CK/CKMB % Calc (0-3.0) Troponin I (0-0.045) ng/ml Total Protein (6.4-8.2) gm/dl Albumin (3.4-5.0) gm/dl Globulin (2.5-4.0) gm/dl Albumin/Globulin Ratio (0.9-2) Urine Color Urine Appearance (Clear) Urine pH (4.5-7.5) Ur Specific [place] (1.000-1.030) Urine Protein (Negative) Urine Glucose (UA) (Negative) Urine Ketones (Negative) Urine Blood (Negative) Urine Nitrite (Negative) Urine Bilirubin (Negative) Urine Urobilinogen (Negative) Ur Leukocyte Esterase (Negative) Urine WBC (Auto) (0-5) /hpf Urine RBC (Auto) (0-4) /hpf U Hyaline Cast (Auto) (0-5) /lpf U Epithel Cells (Auto) (0-5) /lpf Urine Bacteria (Auto) (Negative) Salicylates < 1.7 L (2.8-20) mg/dl Urine Opiates Screen (Neg) Ur Methadone, Qual (Neg) Acetaminophen 5 L (10-30) ug/ml Urine Barbiturates (Neg) Ur Phencyclidine (PCP) (Neg) U Amphetamin/Meth Scrn (Neg) MDMA (Ecstasy) Screen (Neg) U Benzodiazepines Scrn (Neg) Ur Cocaine Metabolite (Neg) U Marijuana (THC) Screen (Neg) Ethyl Alcohol mg/dL (0-3) mg/dl 05/06/19 05/06/19 05/06/19 Range/Units 11:43 11:43 12:25 WBC (4.8-10.8) K/uL RBC (4.2-5.4) M/uL Hgb (12.0-16.0) g/dL Hct (37-47) % MCV (80-100) fL MCH (25-34) pg MCHC (32-36) g/dL RDW Std Deviation (36.4-46.3) fL RDW Coeff of Lisa (11.5-14.5) % Plt Count (130-400) K/uL MPV (7.4-10.4) fL Immature Gran % (Auto) % Neut % (Auto) % Lymph % (Auto) % [place] % (Auto) % Eos % (Auto) % Baso % (Auto) % Immature Gran # (Auto) (0.00-0.02) K/uL Neut # (Auto) (1.4-6.5) K/uL Lymph # (Auto) (1.2-3.4) K/uL [place] # (Auto) (0.11-0.59) K/uL Eos # (Auto) (0-0.5) K/uL Baso # (Auto) (0-0.2) K/uL PT (9.0-12.0) Seconds INR (0.9-1.1) APTT (21.0-31.0) Seconds PTT Ratio VBG pH 7.35 L (7.36-7.41) VBG pCO2 43 (38-50) mmHg VBG pO2 41 mmHg VBG HCO3 23 mmol/L VBG O2 Saturation 69.0 % VBG Base Excess -2.7 mEq/L Barometric Pressure 729.2 mm/Hg Sodium (136-145) mmol/L Potassium (3.5-5.1) mmol/L Chloride (98-107) mmol/L Carbon Dioxide (21-32) mmol/L Anion Gap (3-11) BUN (7-18) mg/dl Creatinine (0.6-1.2) mg/dl Est Cr Clr Drug Dosing Est GFR ( Amer) Est GFR (Non-Af Amer) BUN/Creatinine Ratio (10-20) Glucose (70-99) mg/dl Osmolality (280-300) mOsm/kg Lactate (0.4-2.0) mmol/L Calcium (8.5-10.1) mg/dl Magnesium (1.8-2.4) mg/dl Total Bilirubin (0.2-1) mg/dl AST (15-37) U/L ALT (12-78) U/L Alkaline Phosphatase (45-117) U/L Total Creatine Kinase 52 (26-192) U/L CK-MB (CK-2) (0.5-3.6) ng/ml CK/CKMB % Calc (0-3.0) Troponin I (0-0.045) ng/ml Total Protein (6.4-8.2) gm/dl Albumin (3.4-5.0) gm/dl Globulin (2.5-4.0) gm/dl Albumin/Globulin Ratio (0.9-2) Urine Color Urine Appearance (Clear) Urine pH (4.5-7.5) Ur Specific [place] (1.000-1.030) Urine Protein (Negative) Urine Glucose (UA) (Negative) Urine Ketones (Negative) Urine Blood (Negative) Urine Nitrite (Negative) Urine Bilirubin (Negative) Urine Urobilinogen (Negative) Ur Leukocyte Esterase (Negative) Urine WBC (Auto) (0-5) /hpf Urine RBC (Auto) (0-4) /hpf U Hyaline Cast (Auto) (0-5) /lpf U Epithel Cells (Auto) (0-5) /lpf Urine Bacteria (Auto) (Negative) Salicylates (2.8-20) mg/dl Urine Opiates Screen (Neg) Ur Methadone, Qual (Neg) Acetaminophen (10-30) ug/ml Urine Barbiturates (Neg) Ur Phencyclidine (PCP) (Neg) U Amphetamin/Meth Scrn (Neg) MDMA (Ecstasy) Screen (Neg) U Benzodiazepines Scrn (Neg) Ur Cocaine Metabolite (Neg) U Marijuana (THC) Screen (Neg) Ethyl Alcohol mg/dL 283.0 H (0-3) mg/dl 05/06/19 05/06/19 05/06/19 Range/Units 13:00 13:00 15:12 WBC (4.8-10.8) K/uL RBC (4.2-5.4) M/uL Hgb (12.0-16.0) g/dL Hct (37-47) % MCV (80-100) fL MCH (25-34) pg MCHC (32-36) g/dL RDW Std Deviation (36.4-46.3) fL RDW Coeff of Lisa (11.5-14.5) % Plt Count (130-400) K/uL MPV (7.4-10.4) fL Immature Gran % (Auto) % Neut % (Auto) % Lymph % (Auto) % [place] % (Auto) % Eos % (Auto) % Baso % (Auto) % Immature Gran # (Auto) (0.00-0.02) K/uL Neut # (Auto) (1.4-6.5) K/uL Lymph # (Auto) (1.2-3.4) K/uL [place] # (Auto) (0.11-0.59) K/uL Eos # (Auto) (0-0.5) K/uL Baso # (Auto) (0-0.2) K/uL PT (9.0-12.0) Seconds INR (0.9-1.1) APTT (21.0-31.0) Seconds PTT Ratio VBG pH (7.36-7.41) VBG pCO2 (38-50) mmHg VBG pO2 mmHg VBG HCO3 mmol/L VBG O2 Saturation % VBG Base Excess mEq/L Barometric Pressure mm/Hg Sodium (136-145) mmol/L Potassium (3.5-5.1) mmol/L Chloride (98-107) mmol/L Carbon Dioxide (21-32) mmol/L Anion Gap (3-11) BUN (7-18) mg/dl Creatinine (0.6-1.2) mg/dl Est Cr Clr Drug Dosing Est GFR ( Amer) Est GFR (Non-Af Amer) BUN/Creatinine Ratio (10-20) Glucose (70-99) mg/dl Osmolality (280-300) mOsm/kg Lactate 3.2 H* (0.4-2.0) mmol/L Calcium (8.5-10.1) mg/dl Magnesium (1.8-2.4) mg/dl Total Bilirubin (0.2-1) mg/dl AST (15-37) U/L ALT (12-78) U/L Alkaline Phosphatase (45-117) U/L Total Creatine Kinase (26-192) U/L CK-MB (CK-2) (0.5-3.6) ng/ml CK/CKMB % Calc (0-3.0) Troponin I (0-0.045) ng/ml Total Protein (6.4-8.2) gm/dl Albumin (3.4-5.0) gm/dl Globulin (2.5-4.0) gm/dl Albumin/Globulin Ratio (0.9-2) Urine Color Yellow Urine Appearance Clear (Clear) Urine pH 5.5 (4.5-7.5) Ur Specific [place] 1.007 (1.000-1.030) Urine Protein Negative (Negative) Urine Glucose (UA) Negative (Negative) Urine Ketones Negative (Negative) Urine Blood Negative (Negative) Urine Nitrite Positive A (Negative) Urine Bilirubin Negative (Negative) Urine Urobilinogen Negative (Negative) Ur Leukocyte Esterase Negative (Negative) Urine WBC (Auto) 1-5 (0-5) /hpf Urine RBC (Auto) 0-4 (0-4) /hpf U Hyaline Cast (Auto) 1-5 (0-5) /lpf U Epithel Cells (Auto) >30 H (0-5) /lpf Urine Bacteria (Auto) 3+ H (Negative) Salicylates (2.8-20) mg/dl Urine Opiates Screen Neg (Neg) Ur Methadone, Qual Neg (Neg) Acetaminophen (10-30) ug/ml Urine Barbiturates Neg (Neg) Ur Phencyclidine (PCP) Neg (Neg) U Amphetamin/Meth Scrn Neg (Neg) MDMA (Ecstasy) Screen Neg (Neg) U Benzodiazepines Scrn Neg (Neg) Ur Cocaine Metabolite Neg (Neg) U Marijuana (THC) Screen Neg (Neg) Ethyl Alcohol mg/dL (0-3) mg/dl Imaging Data Radiologist's Impression: Radiology results as stated below per my review and the radiologist's interpretation: XR chest 1V portable HISTORY: 48 years-old Female SEPSIS acute sepsis COMPARISON: Chest radiograph 11/18/2018 TECHNIQUE: Portable AP view of the chest FINDINGS: Cardiac mediastinal and hilar silhouettes are unchanged. Stable positioning of the right IJ [id number] catheter. No pneumothorax, pleural effusion or overt pulmonary edema. No focal airspace consolidation typical for pneumonia. ORIF changes of the right humerus with healing subacute chronic mid humeral fracture deformity. Mild convex left curvature of the mid to lower thoracic spine. IMPRESSION: ACT 112: Negative or not required by law. The above report was generated using voice recognition software. It may contain grammatical, syntax or spelling errors. Electronically signed by: Scott Blanco M.D. 05/06/2019 12:[address] SCAN OF THE BRAIN WITHOUT IV CONTRAST CLINICAL HISTORY: Fall. COMPARISON STUDY: CT of the brain dated 01/26/2018. TECHNIQUE: Unenhanced axial CT scan of the brain is performed from the vertex to the skull base. A dose lowering technique was utilized adhering to the principles of ALARA. FINDINGS: Brain parenchyma: There is age advanced involutional change. There is no hemorrhage, mass effect, or evidence of acute territorial ischemia by CT criteria. Cabrera-white matter differentiation is preserved. No extra-axial fluid collection is seen. Ventricles, sulci, cisterns: Prominent secondary to involutional change. Intracranial vasculature: The visualized intracranial vasculature at the skull base is normal in appearance. Calvarium: There is no depressed calvarial fracture. Sinuses and mastoids: There is moderate mucosal thickening within the left maxillary antrum. Mild mucosal thickening is noted in the right maxillary sinus and the anterior left ethmoid sinuses. The mastoid air cells are well pneumatized. Orbits: The bony orbits are grossly intact. IMPRESSION: No acute intracranial abnormality. ACT 112: Negative or not required by law. Electronically signed by: Geovanny Marcelo M.D. 05/06/2019 1:[address] SCAN OF THE CERVICAL SPINE CLINICAL HISTORY: Fall. COMPARISON STUDY: CT of the cervical spine dated 01/28/2012. Cervical spine radi ographs dated 01/26/2018. TECHNIQUE: CT scan of the cervical spine is performed from the skull base to the upper thoracic spine. Images are reviewed in the axial, sagittal, and coronal planes. IV contrast was not administered for this examination. A dose lowering technique was utilized adhering to the principles of ALARA. FINDINGS: Skeletal structures: The skeletal structures are osteopenic. There is no evidence of fracture or subluxation involving the cervical spine. There are mild chronic compression deformities of C7 and T1. There is a minimal chronic compression deformity of T2. Vertebral body height is otherwise maintained throughout the cervical spine. Alignment is preserved. The odontoid process and lateral masses are intact. The atlantoaxial articulation is preserved. The spinous processes appear intact. Intervertebral discs: The disc spaces are well maintained. Central canal: Widely patent. Soft tissues: The prevertebral and paraspinous soft tissues are within normal li mits. A right internal jugular central venous infusion port is in place. The thyroid gland is atrophic. Calvarium: The visualized calvarium at the skull base appears intact. Brain parenchyma: Partially visualized brain parenchyma the skull base is within normal limits. Sinuses and mastoids: The visualized paranasal sinuses are clear. The mastoid air cells are well pneumatized. Lung apices: A 6 mm pulmonary nodule is seen at the right apex. Apical lung parenchyma is otherwise clear as visualized. IMPRESSION: 1. There is no evidence of fracture or subluxation involving the cervical spine. 2. There is a 6 mm right apical pulmonary nodule. See report of chest CT performed concurrently for detailed pulmonary findings. 3. There are chronic compression deformities of C7, T1, and T2. ACT 112: Negative or not required by law. Electronically signed by: Geovanny Marcelo M.D. 05/06/2019 1:[address] angio chest PE protocol HISTORY: 48 years-old Female with PE. Acute chest pain with shortness of breath TECHNIQUE: Multiple CTA images of the chest were obtained after the intravenous administration of 118 ml Optiray 320. Coronal and sagittal MIPS were obtained from the axial data set and were submitted for review. All measurements were obtained according to NASCET criteria. A dose lowering technique was utilized adhering to the principles of ALARA. COMPARISON: Chest CT 01/26/2018. FINDINGS: CTA: Heart is normal in size. No pericardial effusion. No thoracic aortic aneurysm or dissection. Patency of the imaged great vessels. Mild descending thoracic aortic tortuosity. Reflux of contrast into the IVC and hepatic veins. Pulmonary arterial tree is opacified to the level of the subsegmental branches and demonstrates no filling defects to suggest pulmonary thromboembolic disease. Right IJ Shzoco-h-[id number] catheter distal tip terminates within the right atrium. CT CHEST: Unremarkable thyroid. 7 mm subcarinal lymph node is unchanged. Prominent c ollateral vessels are again noted throughout the mediastinum. Trace right and small left pleural effusions. No pneumothorax. 6 mm irregular solid nodule of the apical segment right upper lobe is unchanged from comparison. Mild dependent subsegmental bibasilar atelectasis. 4 mm subpleural nodule of the left upper lobe is noted adjacent to the major fissure on image 176 series 8, also unchanged. Mild pleural parenchymal scarring of the inferior segment lingula. Airways are patent. Severe hepatic steatosis. Intrahepatic biliary ductal prominence. Wall thickening of the mid and distal esophagus with moderate hiatal hernia. Postoperative changes of the stomach. Mild generalized body wall edema. No suspicious osseous lesions. Multiple healed remote rib fractures, right greater than left. Partially imaged hardware of the right proximal humerus. Multiple remote thoracic compression deformities appear unchanged. No acute fracture identified. IMPRESSION: 1. No acute aortic pathology or evidence of pulmonary thromboembolic disease. 2. Trace right and small left pleural effusions with mild dependent bibasilar atelectasis. 3. Collateral vessels of the mediastinum redemonstrated. 4. Severe hepatic steatosis. 5. Additional findings as above. ACT 112: Negative or not required by law. The above report was generated using voice recognition software. It may contain grammatical, syntax or spelling errors. Electronically signed by: Scott Blanco M.D. 05/06/2019 1:[address] SCAN OF THE ABDOMEN AND PELVIS WITH IV CONTRAST CLINICAL HISTORY: Trauma. Fall. COMPARISON STUDY: Abdominal CT dated 09/25/2018. TECHNIQUE: Following the IV administration of 118 cc of Optiray 320, CT scan of the abdomen and pelvis is performed from the lung bases to the proximal femora. Images are reviewed in the axial, sagittal, and coronal planes. IV contrast was administered without complication. A dose lowering technique was utilized adhering to the principles of ALARA. FINDINGS: Lung bases: The heart is normal in size and there is a small pericardial effusion. There are trace pleural effusions with associated atelectasis. There is a moderate hiatal hernia. Liver: The contrast-enhanced liver is enlarged, measuring 18.8 cm in length. The liver demonstrates diffusely diminutive attenuation consistent with severe hepatic steatosis. There is mild central intrahepatic biliary ductal dilatation. The hepatic veins and portal veins are patent. Gallbladder: Not identified and presumed surgically absent. Spleen: Normal in size and attenuation. Pancreas: Atrophic and grossly unremarkable. Adrenal glands: Unremarkable. Kidneys: The contrast enhanced kidneys demonstrate cortical atrophy and are without hydronephrosis. The kidneys enhance and excrete symmetrically. Abdominal vasculature: The abdominal aorta is normal in course and caliber. Bowel: Postoperative change is noted in the stomach. There is moderate colonic fecal retention. No bowel obstruction is seen. The appendix is well-visualized and normal. Peritoneum: There is trace free fluid in the pelvis. No intraperitoneal free air is seen. Lymphadenopathy: None. Pelvic viscera: The bladder is distended otherwise normal in appearance. Excreted contrast is noted within the bladder lumen. The uterus is surgically absent. No adnexal lesion is seen. Skeletal structures: The skeletal structures are osteopenic. There is an impacted and angulated fracture of the subcapital right femur. There is mild hemorrhage around the fracture site and soft tissue contusion in the right upper thigh. No additional acute fracture is identified. There are numerous healed bilateral rib fractures. There are mild chronic superior endplate compression deformities of T9, T11, and T12. No lytic or blastic lesions are seen. Soft tissues: The patient is cachectic. Mild body wall edema is noted. IMPRESSION: 1. There is an impacted and angulated subcapital fracture of the right femur. 2. There is no evidence of solid organ injury in the abdomen or pelvis. 3. Hepatomegaly and severe hepatic steatosis. 4. There is evidence of fluid overload including trace pleural effusions, a small volume of free fluid in the pelvis, and body wall edema. 5. Moderate hiatal hernia and postoperative change from gastric resection. 6. Additional findings as above. ACT 112: Negative or not required by law. Electronically signed by: Geovanny Marcelo M.D. 05/06/2019 1:[address] DOSE: 1403.48 mGy.cm HISTORY: Right hip pain. fall TECHNIQUE: Multiaxial CT images of the right hip were performed and reformatted in the sagittal and coronal plane without the use of contrast. A dose lowering technique was utilized adhering to the principles of ALARA. COMPARISON: None. FINDINGS: There is an impacted and slightly angulated subcapital right femoral neck fracture. The visualized pelvic bones are intact. No dislocation. Mild cartilage space narrowing within the right hip. IMPRESSION: Impacted right femoral neck fracture. ACT 112: Negative or not required by law. Electronically signed by: Hadley Soni M.D. 05/06/2019 1:45 PM ECG Data Attestation: I personally reviewed and interpreted this ECG as follows: Indication: + altered mental status Rate (beats per minute): 103 Rhythm: + sinus tachycardia ECG ST segments: no ST depression and no ST elevation ECG Findings: + Other (Low voltage ); no PACs and no PVCs Comparison ECG Date: from (11/19/18) Change: no significant change Blood Pressure Blood Pressure Findings: Normal blood pressure MDM Narrative The patient is a 48-year-old female who presented to the emergency department for an evaluation after she was found on the floor. The patient states that she had a fall and has been laying on the floor for a few days. The patient does remember being up and around for s [place]. She states that she is been u nable to get off the floor because of right leg pain. The patient was clinically intoxicated and this was confirmed via laboratory studies. She was treated with IV fluids and thiamine in the emergency department. She was reevaluated multiple times. I discussed the patient's laboratory and radiog raphic studies with her. She was found to have signs of a right hip fracture on CT of the hip. She did not have any acute traumatic injury noted on CT the head neck chest abdomen or pelvis other than the right hip injury. I discussed the patient's condition with the on-call [facility] hospitalist group. They have agreed to evaluate the patient in the emergency department for further management and disposition. Impression & Plan Closed subcapital fracture of femur, Fall, Alcohol intoxication, Bilateral edema of lower extremity, Alcohol abuse Discharge Plan Visit Data *Final* Discharge Date/Time: 05/06/19 16:14 Chief Complaint: Altered Mental Status ED Provider: Erickson Marti Discharge Problem: Closed subcapital fracture of femur, Fall, Alcohol intoxication, Bilateral edema of lower extremity, Alcohol abuse Patient Disposition: Admitted As Inpatient Discharge Instructions Interventions: ED Discharge Assessment Last Done: 05/06/19 16:14 Discharge Problem: Closed subcapital fracture of femur Qualifiers: Encounter type: initial encounter Laterality: right Qualified Code(s): S72.011A - Unspecified intracapsular fracture of right femur, initial encounter for closed fracture Fall Qualifiers: Encounter type: initial encounter Qualified Code(s): W19.XXXA - Unspecified fall, initial encounter Alcohol intoxication Qualifiers: Complication of substance-induced condition: uncomplicated Qualified Code(s): F10.920 - Alcohol use, unspecified with intoxication, uncomplicated The scribe's documentation has been prepared under my direction and personally reviewed by me in its entirety. I confirm that the note above accurately reflects all work, treatment, procedures, and medical decision making performed by me.
[2019-05-06 12:04] LABS: Basophils # (auto) 0.04 K/uL (0-0.2); Basophils % (auto) 0.8 %; Eosinophils # (auto) 0.02 K/uL (0-0.5); Eosinophils % (auto) 0.4 %; Hemoglobin 11.1 g/dL (12.0-16.0); Immature Granulocytes # (auto) 0.03 K/uL (0.00-0.02); Immature Granulocytes % (auto) 0.6 %; Lymphocytes # (auto) 1.59 K/uL (1.2-3.4); Lymphocytes % (auto) 30.8 %; Mean Corpuscular Hemoglobin 33.9 pg (25-34); Mean Corpuscular Hgb Conc 33.6 g/dL (32-36); Mean Corpuscular Volume 100.9 fL (80-100); Mean Platelet Volume 9.5 fL (7.4-10.4); Monocytes # (auto) 0.38 K/uL (0.11-0.59); Monocytes % (auto) 7.4 %; Platelet Count 441 K/uL (130-400); RDW Coefficient of Variation 16.3 % (11.5-14.5); RDW Standard Deviation 58.7 fL (36.4-46.3); Red Blood Count 3.27 M/uL (4.2-5.4); White Blood Count 5.16 K/uL (4.8-10.8)
[2019-05-06 12:12] LABS: INR 1.1 (0.9-1.1); Partial Thromboplastin Ratio 1.3; Partial Thromboplastin Time 34.1 Seconds (21.0-31.0); Prothrombin Time 11.2 Seconds (9.0-12.0)
[2019-05-06 12:18] LABS: Acetaminophen 5 ug/ml (10-30); Alanine Aminotransferase 55 U/L (12-78); Albumin Level 2.1 gm/dl (3.4-5.0); Aspartate Aminotransferase 111 U/L (15-37); BUN Creatinine Ratio 8.4 (10-20); Blood Urea Nitrogen 4 mg/dl (7-18); Carbon Dioxide 22 mmol/L (21-32); Chloride 111 mmol/L (98-107); Est GFR (African American) 135.4; Est GFR (Non-African American) 116.8; Glucose 85 mg/dl (70-99); Magnesium 1.8 mg/dl (1.8-2.4); Salicylate < 1.7 mg/dl (2.8-20); Sodium 143 mmol/L (136-145)
[2019-05-06 12:23] LABS: Albumin Globulin Ratio 0.6 (0.9-2); Alkaline Phosphatase 172 U/L (45-117); Bilirubin,Total 0.6 mg/dl (0.2-1); Creatine Kinase 62 U/L (26-192); Creatine Kinase MB 1.8 ng/ml (0.5-3.6); Globulin 3.4 gm/dl (2.5-4.0); Total Protein 5.5 gm/dl (6.4-8.2); Troponin I 0.018 ng/ml (0-0.045)
[2019-05-06] MEDS ORDERED: OPTIRAY 320 125ml IV PRN (13:20)
[2019-05-06 13:24] LABS: Appearance Urine Clear (Clear); Bacteria Urine Automated 3+ (Negative); Bilirubin Urine Negative (Negative); Blood Urine Negative (Negative); Color Urine Yellow; Epithelial Cell Urine Auto >30 /lpf (0-5); Glucose Urine UA Negative (Negative); Ketones Urine Negative (Negative); Leukocyte Esterase Urine Negative (Negative); Nitrite Urine Positive (Negative); Protein Urine Negative (Negative); RBC Urine Automated 0-4 /hpf (0-4); Specific Gravity Urine 1.007 (1.000-1.030); Urobilinogen Urine Negative (Negative); pH Urine 5.5 (4.5-7.5)
--- NOTE | 2019-05-06 13:41 | CT Scan Report ---
CT SCAN OF THE BRAIN WITHOUT IV CONTRAST CLINICAL HISTORY: Fall. COMPARISON STUDY: CT of the brain dated 01/26/2018. TECHNIQUE: Unenhanced axial CT scan of the brain is performed from the vertex to the skull base. A d ose lowering technique was utilized adhering to the principles of ALARA. FINDINGS: Brain parenchyma: There is age advanced involutional change. There is no hemorrhage, mass effect, or evidence of acute territorial ischemia by CT criteria. Cabrera-white matter differentiation is preserved . No extra-axial fluid collection is seen. Ventricles, sulci, cisterns: Prominent secondary to involutional change. Intracranial vasculature: The visualized intracranial vasculature at the skull base is normal in [facility]. Calvarium: There is no depressed calvarial fracture. Sinuses and mastoids: There is moderate mucosal thickening within the left maxillary antrum. Mild muc osal thickening is noted in the right maxillary sinus and the anterior left ethmoid sinuses. The mast oid air cells are well pneumatized. Orbits: The bony orbits are grossly intact. IMPRESSION: No acute intracranial abnormality. ACT 112: Negative or not required by law. Electronically signed by: Geovanny Marcelo M.D. 05/06/2019 1:40 PM
--- NOTE | 2019-05-06 13:46 | CT Scan Report ---
RIGHT HIP CT CT DOSE: 1403.48 mGy.cm HISTORY: Right hip pain. fall TECHNIQUE: Multiaxial CT images of the right hip were performed and reformatted in the sagittal and c oronal plane without the use of contrast. A dose lowering technique was utilized adhering to the pancho nciamilcar of RUDDY. COMPARISON: None. FINDINGS: There is an impacted and slightly angulated subcapital right femoral neck fracture. The vis ualized pelvic bones are intact. No dislocation. Mild cartilage space narrowing within the right hip. IMPRESSION: Impacted right femoral neck fracture. ACT 112: Negative or not required by law. Electronically signed by: Hadley Soni M.D. 05/06/2019 1:45 PM
--- NOTE | 2019-05-06 13:47 | CT Scan Report ---
CT SCAN OF THE CERVICAL SPINE CLINICAL HISTORY: Fall. COMPARISON STUDY: CT of the cervical spine dated 01/28/2012. Cervical spine radiographs dated 01/27/20 18. TECHNIQUE: CT scan of the cervical spine is performed from the skull base to the upper thoracic spine . Images are reviewed in the axial, sagittal, and coronal planes. IV contrast was not administered fo r this examination. A dose lowering technique was utilized adhering to the principles of ALARA. FINDINGS: Skeletal structures: The skeletal structures are osteopenic. There is no evidence of fracture or subl uxation involving the cervical spine. There are mild chronic compression deformities of C7 and T1. Th ere is a minimal chronic compression deformity of T2. Vertebral body height is otherwise maintained t hroughout the cervical spine. Alignment is preserved. The odontoid process and lateral masses are in tact. The atlantoaxial articulation is preserved. The spinous processes appear intact. Intervertebral discs: The disc spaces are well maintained. Central canal: Widely patent. Soft tissues: The prevertebral and paraspinous soft tissues are within normal limits. A right interna l jugular central venous infusion port is in place. The thyroid gland is atrophic. Calvarium: The visualized calvarium at the skull base appears intact. Brain parenchyma: Partially visualized brain parenchyma the skull base is within normal limits. Sinuses and mastoids: The visualized paranasal sinuses are clear. The mastoid air cells are well pneu matized. Lung apices: A 6 mm pulmonary nodule is seen at the right apex. Apical lung parenchyma is otherwise c lear as visualized. IMPRESSION: 1. There is no evidence of fracture or subluxation involving the cervical spine. 2. There is a 6 mm right apical pulmonary nodule. See report of chest CT performed concurrently for d etailed pulmonary findings. 3. There are chronic compression deformities of C7, T1, and T2. ACT 112: Negative or not required by law. Electronically signed by: Geovanny Marcelo M.D. 05/06/2019 1:45 PM
[2019-05-06 13:53] LABS: Amphetamines+Metham, Urine Neg (Neg); Barbiturates, Urine Neg (Neg); Benzodiazepine, Urine Neg (Neg); Cocaine, Urine Neg (Neg); MDMA (Ecstacy), Urine Neg (Neg); Methadone, Urine Neg (Neg); Opiate, Urine Neg (Neg); Phencyclidine, Urine Neg (Neg)
--- NOTE | 2019-05-06 13:53 | CT Scan Report ---
CT angio chest PE protocol HISTORY: 48 years-old Female with PE. Acute chest pain with shortness of breath TECHNIQUE: Multiple CTA images of the chest were obtained after the intravenous administration of 118 ml Optiray 320. Coronal and sagittal MIPS were obtained from the axial data set and were submitted for review. All measurements were obtained according to NASCET criteria. A dose lowering technique w as utilized adhering to the principles of ALARA. COMPARISON: Chest CT 01/26/2018. FINDINGS: CTA: Heart is normal in size. No pericardial effusion. No thoracic aortic aneurysm or dissection. Patency of the imaged great vessels. Mild descending thoracic aortic tortuosity. Reflux of contrast into the IVC and hepatic veins. Pulmonary arterial tree is opacified to the level of the subsegmental branches and demonstrates no filling defects to suggest pulmonary thromboembolic disease. Right IJ Infuse-a-P ort catheter distal tip terminates within the right atrium. CT CHEST: Unremarkable thyroid. 7 mm subcarinal lymph node is unchanged. Prominent collateral vessels are again noted throughout the mediastinum. Trace right and small left pleural effusions. No pneumothorax. 6 m m irregular solid nodule of the apical segment right upper lobe is unchanged from comparison. Mild de pendent subsegmental bibasilar atelectasis. 4 mm subpleural nodule of the left upper lobe is noted ad jacent to the major fissure on image 176 series 8, also unchanged. Mild pleural parenchymal scarring of the inferior segment lingula. Airways are patent. Severe hepatic steatosis. Intrahepatic biliary ductal prominence. Wall thickening of the mid and dist al esophagus with moderate hiatal hernia. Postoperative changes of the stomach. Mild generalized body wall edema. No suspicious osseous lesions. Multiple healed remote rib fractures, right greater than left. Partially imaged hardware of the right proximal humerus. Multiple remote thoracic compression d eformities appear unchanged. No acute fracture identified. IMPRESSION: 1. No acute aortic pathology or evidence of pulmonary thromboembolic disease. 2. Trace right and small left pleural effusions with mild dependent bibasilar atelectasis. 3. Collateral vessels of the mediastinum redemonstrated. 4. Severe hepatic steatosis. 5. Additional findings as above. ACT 112: Negative or not required by law. The above report was generated using voice recognition software. It may contain grammatical, syntax o r spelling errors. Electronically signed by: Scott Blanco M.D. 05/06/2019 1:51 PM
--- NOTE | 2019-05-06 13:57 | CT Scan Report ---
CT SCAN OF THE ABDOMEN AND PELVIS WITH IV CONTRAST CLINICAL HISTORY: Trauma. Fall. COMPARISON STUDY: Abdominal CT dated 09/25/2018. TECHNIQUE: Following the IV administration of 118 cc of Optiray 320, CT scan of the abdomen and pelv is is performed from the lung bases to the proximal femora. Images are reviewed in the axial, sagitta l, and coronal planes. IV contrast was administered without complication. A dose lowering technique w as utilized adhering to the principles of ALARA. FINDINGS: Lung bases: The heart is normal in size and there is a small pericardial effusion. There are trace pl eural effusions with associated atelectasis. There is a moderate hiatal hernia. Liver: The contrast-enhanced liver is enlarged, measuring 18.8 cm in length. The liver demonstrates d iffusely diminutive attenuation consistent with severe hepatic steatosis. There is mild central intra hepatic biliary ductal dilatation. The hepatic veins and portal veins are patent. Gallbladder: Not identified and presumed surgically absent. Spleen: Normal in size and attenuation. Pancreas: Atrophic and grossly unremarkable. Adrenal glands: Unremarkable. Kidneys: The contrast enhanced kidneys demonstrate cortical atrophy and are without hydronephrosis. T he kidneys enhance and excrete symmetrically. Abdominal vasculature: The abdominal aorta is normal in course and caliber. Bowel: Postoperative change is noted in the stomach. There is moderate colonic fecal retention. No vadim wel obstruction is seen. The appendix is well-visualized and normal. Peritoneum: There is trace free fluid in the pelvis. No intraperitoneal free air is seen. Lymphadenopathy: None. Pelvic viscera: The bladder is distended otherwise normal in appearance. Excreted contrast is noted w ithin the bladder lumen. The uterus is surgically absent. No adnexal lesion is seen. Skeletal structures: The skeletal structures are osteopenic. There is an impacted and angulated fract ure of the subcapital right femur. There is mild hemorrhage around the fracture site and soft tissue contusion in the right upper thigh. No additional acute fracture is identified. There are numerous he aled bilateral rib fractures. There are mild chronic superior endplate compression deformities of T9, T11, and T12. No lytic or blastic lesions are seen. Soft tissues: The patient is cachectic. Mild body wall edema is noted. IMPRESSION: 1. There is an impacted and angulated subcapital fracture of the right femur. 2. There is no evidence of solid organ injury in the abdomen or pelvis. 3. Hepatomegaly and severe hepatic steatosis. 4. There is evidence of fluid overload including trace pleural effusions, a small volume of free flui d in the pelvis, and body wall edema. 5. Moderate hiatal hernia and postoperative change from gastric resection. 6. Additional findings as above. ACT 112: Negative or not required by law. Electronically signed by: Geovanny Marcelo M.D. 05/06/2019 1:56 PM
--- NOTE | 2019-05-06 15:27 | History & Physical Report ---
Date of Service May 06, 2019 Assessment & Plan (1) Hip fracture, right: Pt woke up and found herself on the floor with R hip pain CT hip showed Impacted right femoral neck fracture. CT cervical showed no evidence of fracture or subluxation involving the cervical spine. CT head showed no acute intracranial abnormality. Will consult orthopedic Due to hx of Von Willebrand, she will need to get cleared by hematology for prophylaxis Humate-P prior to surgery and then every 12-24 hours for the next 1- 2 days Will make NPO after midnight Will continue pain control Fall precaution Alcohol abuse Alcohol level 283 Counseling on alcohol cessation Denies any episode of alcohol withdrawn Will put on alcohol withdrawn protocol with gabapentin and ativan Continue Monitor Elevated Lactate Possible related to dehydration and alcohol intake No Leukocytosis and afebrile Will continue gentle IVF Monitor lactic acid Blood cx and urine cx pending Gastroparesis: Peptic ulcer disease: Continue PPI Stable Seizure disorder: No complaint with seizure med Continue Keppra and will resume gabapentin once completes gabapentin protocol Seizure precaution Anxiety Continue Ativan prn Von Willebrand disease: Pt has type 2 Von Willibrand disease Pt follow with Hematology Dr. Lanza Will consult Hematology might require prophylactic Humate-P prior to surgery and then every 12-24 hours for the next 1-2 days, depending on blood loss. Monitor PTT daily Lung Nodules CTA chest showed 6 mm irregular solid nodule of the apical segment right upper lobe is unchanged from comparison. Mild dependent subsegmental bibasilar atelectasis. 4 mm subpleural nodule of the left upper lobe is noted adjacent to the major fissure on image 176 series 8, also unchanged Stable DVT prophylaxis SCDs (Due to Type 2 Von Willibrand disease) No Anticoagulant Code Status DNR as per my discussion with patient Disposition Will need placement Will consult case management History of Present Illness Chief Complaint: Right hip pain Primary Care Provider: Jaspal Bae MD 48-year-old female who has a known past medical history of von willebrand disease, seizure disorder, peptic ulcer disease, anxiety, depression, gastroparesis, history of gastrectomy, osteoporosis, blidness, left shoulder impingement, non compliant who presents to [facility] ED secondary after found herself on the floor. Patient said about 2 days ago he woke up and found herself on the floor. She said that initially she was on the couch with her dog sleeping, and she woke up and found herself on the floor. She said that she was not able to get up or move her right LE due to severe pain in her right hip from the fall. she said that she did not want to call anyone for help she said that she stayed on the floor for 2 days with her dog by her side. She said today she tried to reach for her phone and called for help. She said that she did not eat for 2 days but she had a bottle of water and bottle of wine next to her couch that she drank. She said that she drank the bottle of wine for New Year's [place]. Patient said that during the last 2 days she had to urinate on the floor. She said that she is not sure if she had a seizure because she is not compliant with her seizure med. She does not remember when was the last time she had a seizure. Patient said that she does not like to take any medication because of side effects. She said that she only drink alcohol when she is bored or in the weekend. She denies any symptom of alcohol withdrawal if she does not drink for a few days. She does not want to stay in the hospital because she said she had so much to do at home. Denies any chest pain, palpitation, dizziness, fever, shortness of breath. Allergies Allergy/AdvReac Type Severity Reaction Status Date / Time iron dextran complex Allergy Severe SOB, heart Verified 05/06/19 14:34 racing (see comments) cat dander Allergy Intermediate eye Verified 05/06/19 14:34 watering ceftriaxone Allergy Intermediate Hives Verified 05/06/19 14:34 ciprofloxacin Allergy Intermediate lips Verified 05/06/19 14:34 burning/peeling doxycycline Allergy Intermediate hives, Verified 05/06/19 14:34 vomiting latex Allergy Intermediate mouth Verified 05/06/19 14:34 hives/burning sensation Penicillins Allergy Intermediate Hives Verified 05/06/19 14:34 Quinolones Allergy Intermediate Hives Verified 05/06/19 14:34 Sulfa (Sulfonamide Allergy Intermediate hives Verified 05/06/19 14:34 Antibiotics) Aminoglycosides Allergy Unknown unknown Verified 05/06/19 14:34 reaction tobramycin AdvReac Severe blindness Verified 05/06/19 14:34 lactose AdvReac Intermediate nausea, GI Verified 05/06/19 14:34 upset citalopram AdvReac Mild restlessnes Verified 05/06/19 14:34 s Ferric Oxide Allergy Intermediate hives (see Uncoded 05/06/19 14:34 comments) Home Medications Home Medications Medication Instructions Recorded Confirmed Type cyclobenzaprine 5 mg PO TID PRN 01/29/18 05/06/19 History fexofenadine 180 mg PO QAM 01/29/18 05/06/19 History furosemide [Lasix] 40 mg PO DAILY PRN 01/29/18 05/06/19 History montelukast [Singulair] 10 mg PO QAM PRN 01/29/18 05/06/19 History pantoprazole [Protonix] 40 mg PO BID 01/29/18 05/06/19 History potassium chloride [Klor-Con M10] 20 meq PO DAILY PRN 01/29/18 05/06/19 History promethazine 25 mg PO TIDM PRN 01/29/18 05/06/19 History levetiracetam [Keppra] 1,500 mg PO BID 07/07/18 05/06/19 History trazodone 50 mg PO HS PRN 07/07/18 05/06/19 History gabapentin 400 mg PO TID 11/18/18 05/06/19 History lorazepam [Ativan] 1 mg PO HS 11/18/18 05/06/19 History teriparatide [Forteo] 20 mcg SUBCUT DAILY 03/18/19 05/06/19 History Past Med/Surg History Medical History Anemia hx of blood transfusion (post-operatively 10/2018) Anxiety 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 Lanza Surgical History H/O foot surgery RT HEEL SURGERY X 2 (HARDWARE INTACT) TOE CORRECTION X 3 (PINS INTACT ON RT FOOT) H/O shoulder surgery RT HUMERUS FX REPAIRED (HARDWARE INTACT) H/O wisdom tooth extraction H/O wrist surgery LEFT WRIST X 2 SURGERIES History of cholecystectomy History of colonoscopy History of esophagogastroduodenoscopy (EGD) History of gastrectomy secondary to PUD (OVER 10 YEARS AGO) History of hand surgery LEFT HAND FINGER REPAIR History of hysterectomy (Acute) History of vascular access device MEDIPORT INTACT Family History Father Diabetes Mother Von Willebrand disease Grandmother (Paternal) Family hx of colon cancer Social History Preferred Language: Greenlandic Communication Ability: Effective Violin Restorer Required: No Beliefs That Will Affect Care: None marital status: Current Living Situation: Alone current occupational status: disabled Other Information That Helps Us Care for You: No Feels Safe at Home: Yes Safety Concerns: Feels Safe At This Time Smoking Status: Never smoker Second Hand Exposure: No ; Hx Alcohol Use: Yes Alcohol type: wine Hx Substance Use: No Review of Systems Review of Systems: All systems reviewed & are unremarkable except as noted in HPI & below Physical Exam Physical Exam: General- No acute distress Head- atraumatic Eyes- Legally blind ENT- oropharynx clear Neck- supple, no JVD Lungs- clear to auscultation Heart- regular rhythm; no murmur Abdomen- normal bowel sounds, soft, +tenderness with palpation (refused to let me examine her abdomen to look for hematoma/bruises) Extremities- no calf tenderness, Right hip pain, +edema Neuro- alert, oriented x 3; no facial palsy; no dysarthria Skin- warm & dry, bruises in extremities Results & Data Vital Signs (Past 12 Hours) Vital Signs Temp Pulse Resp BP Pulse Ox 05/06/19 14:00 102 H 21 113/79 05/06/19 13:00 108 H 20 97 05/06/19 12:00 100 H 19 98 05/06/19 11:53 100 05/06/19 10:50 36.7 C 94 H 24 113/97 97 Diagnostic Findings XR chest 1V portable HISTORY: 48 years-old Female SEPSIS acute sepsis COMPARISON: Chest radiograph 11/18/2018 TECHNIQUE: Portable AP view of the chest FINDINGS: Cardiac mediastinal and hilar silhouettes are unchanged. Stable positioning of the right IJ [place]-w-Ekrm catheter. No pneumothorax, pleural effusion or overt pulmonary edema. No focal airspace consolidation typical for pneumonia. ORIF changes of the right humerus with healing subacute chronic mid humeral fracture deformity. Mild convex left curvature of the mid to lower thoracic spine. IMPRESSION: ACT 112: Negative or not required by law. The above report was generated using voice recognition software. It may contain grammatical, syntax or spelling errors. Electronically signed by: Scott Blanco M.D. 05/06/2019 12:01 PM Dictated: 05/06/19 1158 Transcribed: 05/06/[address] SCAN OF THE ABDOMEN AND PELVIS WITH IV CONTRAST CLINICAL HISTORY: Trauma. Fall. COMPARISON STUDY: Abdominal CT dated 09/25/2018. TECHNIQUE: Following the IV administration of 118 cc of Optiray 320, CT scan of the abdomen and pelvis is performed from the lung bases to the proximal femora. Images are reviewed in the axial, sagittal, and coronal planes. IV contrast was administered without complication. A dose lowering technique was utilized adhering to the principles of ALARA. FINDINGS: Lung bases: The heart is normal in size and there is a small pericardial effusion. There are trace pleural effusions with associated atelectasis. There is a moderate hiatal hernia. Liver: The contrast-enhanced liver is enlarged, measuring 18.8 cm in length. The liver demonstrates diffusely diminutive attenuation consistent with severe hepatic steatosis. There is mild central intrahepatic biliary ductal dilatation. The hepatic veins and portal veins are patent. Gallbladder: Not identified and presumed surgically absent. Spleen: Normal in size and attenuation. Pancreas: Atrophic and grossly unremarkable. Adrenal glands: Unremarkable. Kidneys: The contrast enhanced kidneys demonstrate cortical atrophy and are without hydronephrosis. The kidneys enhance and excrete symmetrically. Abdominal vasculature: The abdominal aorta is normal in course and caliber. Bowel: Postoperative change is noted in the stomach. There is moderate colonic fecal retention. No bowel obstruction is seen. The appendix is well-visualized and normal. Peritoneum: There is trace free fluid in the pelvis. No intraperitoneal free air is seen. Lymphadenopathy: None. Pelvic viscera: The bladder is distended otherwise normal in appearance. Excreted contrast is noted within the bladder lumen. The uterus is surgically absent. No adnexal lesion is seen. Skeletal structures: The skeletal structures are osteopenic. There is an impacted and angulated fracture of the subcapital right femur. There is mild hemorrhage around the fracture site and soft tissue contusion in the right upper thigh. No additional acute fracture is identified. There are numerous healed bilateral rib fractures. There are mild chronic superior endplate compression deformities of T9, T11, and T12. No lytic or blastic lesions are seen. Soft tissues: The patient is cachectic. Mild body wall edema is noted. IMPRESSION: 1. There is an impacted and angulated subcapital fracture of the right femur. 2. There is no evidence of solid organ injury in the abdomen or pelvis. 3. Hepatomegaly and severe hepatic steatosis. 4. There is evidence of fluid overload including trace pleural effusions, a small volume of free fluid in the pelvis, and body wall edema. 5. Moderate hiatal hernia and postoperative change from gastric resection. 6. Additional findings as above. ACT 112: Negative or not required by law. Electronically signed by: Geovanny Marcelo M.D. 05/06/2019 1:56 PM Dictated: 05/06/19 1346 Transcribed: 05/06/[address] SCAN OF THE CERVICAL SPINE CLINICAL HISTORY: Fall. COMPARISON STUDY: CT of the cervical spine dated 01/28/2012. Cervical spine radiographs dated 01/26/2018. TECHNIQUE: CT scan of the cervical spine is performed from the skull base to the upper thoracic spine. Images are reviewed in the axial, sagittal, and coronal planes. IV contrast was not administered for this examination. A dose lowering technique was utilized adhering to the principles of ALARA. FINDINGS: Skeletal structures: The skeletal structures are osteopenic. There is no evidence of fracture or subluxation involving the cervical spine. There are mild chronic compression deformities of C7 and T1. There is a minimal chronic compression deformity of T2. Vertebral body height is otherwise maintained throughout the cervical spine. Alignment is preserved. The odontoid process and lateral masses are intact. The atlantoaxial articulation is preserved. The spinous processes appear intact. Intervertebral discs: The disc spaces are well maintained. Central canal: Widely patent. Soft tissues: The prevertebral and paraspinous soft tissues are within normal limits. A right internal jugular central venous infusion port is in place. The thyroid gland is atrophic. Calvarium: The visualized calvarium at the skull base appears intact. Brain parenchyma: Partially visualized brain parenchyma the skull base is within normal limits. Sinuses and mastoids: The visualized paranasal sinuses are clear. The mastoid air cells are well pneumatized. Lung apices: A 6 mm pulmonary nodule is seen at the right apex. Apical lung parenchyma is otherwise clear as visualized. IMPRESSION: 1. There is no evidence of fracture or subluxation involving the cervical spine. 2. There is a 6 mm right apical pulmonary nodule. See report of chest CT performed concurrently for detailed pulmonary findings. 3. There are chronic compression deformities of C7, T1, and T2. ACT 112: Negative or not required by law. Electronically signed by: Geovanny Marcelo M.D. 05/06/2019 1:45 PM Dictated: 05/06/19 1340 Transcribed: 05/06/[address] angio chest PE protocol HISTORY: 48 years-old Female with PE. Acute chest pain with shortness of breath TECHNIQUE: Multiple CTA images of the chest were obtained after the intravenous administration of 118 ml Optiray 320. Coronal and sagittal MIPS were obtained from the axial data set and were submitted for review. All measurements were obtained according to NASCET criteria. A dose lowering technique was utilized adhering to the principles of ALARA. COMPARISON: Chest CT 01/26/2018. FINDINGS: CTA: Heart is normal in size. No pericardial effusion. No thoracic aortic aneurysm or dissection. Patency of the imaged great vessels. Mild descending thoracic aortic tortuosity. Reflux of contrast into the IVC and hepatic veins. Pulmonary arterial tree is opacified to the level of the subsegmental branches and demonstrates no filling defects to suggest pulmonary thromboembolic disease. Right IJ Ijichc-m-Zstl catheter distal tip terminates within the right atrium. CT CHEST: Unremarkable thyroid. 7 mm subcarinal lymph node is unchanged. Prominent collateral vessels are again noted throughout the mediastinum. Trace right and small left pleural effusions. No pneumothorax. 6 mm irregular solid nodule of the apical segment right upper lobe is unchanged from comparison. Mild dependent subsegmental bibasilar atelectasis. 4 mm subpleural nodule of the left upper lobe is noted adjacent to the major fissure on image 176 series 8, also unchanged. Mild pleural parenchymal scarring of the inferior segment lingula. Airways are patent. Severe hepatic steatosis. Intrahepatic biliary ductal prominence. Wall thickening of the mid and distal esophagus with moderate hiatal hernia. Postoperative changes of the stomach. Mild generalized body wall edema. No suspicious osseous lesions. Multiple healed remote rib fractures, right greater than left. Partially imaged hardware of the right proximal humerus. Multiple remote thoracic compression deformities appear unchanged. No acute fracture identified. IMPRESSION: 1. No acute aortic pathology or evidence of pulmonary thromboembolic disease. 2. Trace right and small left pleural effusions with mild dependent bibasilar atelectasis. 3. Collateral vessels of the mediastinum redemonstrated. 4. Severe hepatic steatosis. 5. Additional findings as above. ACT 112: Negative or not required by law. The above report was generated using voice recognition software. It may contain grammatical, syntax or spelling errors. Electronically signed by: Scott Blanco M.D. 05/06/2019 1:51 PM Dictated: 05/06/19 1341 Transcribed: 05/06/[address] SCAN OF THE BRAIN WITHOUT IV CONTRAST CLINICAL HISTORY: Fall. COMPARISON STUDY: CT of the brain dated 01/26/2018. TECHNIQUE: Unenhanced axial CT scan of the brain is performed from the vertex to the skull base. A dose lowering technique was utilized adhering to the principles of ALARA. FINDINGS: Brain parenchyma: There is age advanced involutional change. There is no hemorrhage, mass effect, or evidence of acute territorial ischemia by CT criteria. Cabrera-white matter differentiation is preserved. No extra-axial fluid collection is seen. Ventricles, sulci, cisterns: Prominent secondary to involutional change. Intracranial vasculature: The visualized intracranial vasculature at the skull base is normal in appearance. Calvarium: There is no depressed calvarial fracture. Sinuses and mastoids: There is moderate mucosal thickening within the left maxillary antrum. Mild mucosal thickening is noted in the right maxillary sinus and the anterior left ethmoid sinuses. The mastoid air cells are well pneumatized. Orbits: The bony orbits are grossly intact. IMPRESSION: No acute intracranial abnormality. ACT 112: Negative or not required by law. Electronically signed by: Geovanny Marcelo M.D. 05/06/2019 1:40 PM Dictated: 05/06/19 1337 Transcribed: 05/06/[address] DOSE: 1403.48 mGy.cm HISTORY: Right hip pain. fall TECHNIQUE: Multiaxial CT images of the right hip were performed and reformatted in the sagittal and coronal plane without the use of contrast. A dose lowering technique was utilized adhering to the principles of ALARA. COMPARISON: None. FINDINGS: There is an impacted and slightly angulated subcapital right femoral neck fracture. The visualized pelvic bones are intact. No dislocation. Mild cartilage space narrowing within the right hip. IMPRESSION: Impacted right femoral neck fracture. ACT 112: Negative or not required by law. Electronically signed by: Hadley Soni M.D. 05/06/2019 1:45 PM Dictated: 05/06/19 1343 Transcribed: 05/06/19 1343
[2019-05-06] MEDS ORDERED: GABAPENTIN 1200MG ALCOHOL WITHDRAWAL LOAD PO SCH (16:30)
[2019-05-06] MEDS ORDERED: GABAPENTIN 600 MG TAB PO SCH (18:00)
[2019-05-06] MEDS ORDERED: TRAZODONE HCL 50 MG TAB PO PRN (18:08)
[2019-05-06] MEDS ORDERED: NALOXONE HCL 0.4 MG/1 ML VIAL/CARP IV PRN (18:08)
[2019-05-06] MEDS ORDERED: GABAPENTIN 800MG ALCOHOL WITHDRAWAL LOAD PO SCH (18:08)
[2019-05-06] MEDS ORDERED: MAGNESIUM HYDROXIDE SUSP 30 ML UDC PO PRN (18:08)
[2019-05-06] MEDS ORDERED: OXYCODONE HCL IR 5 MG TAB (IMMEDIATE RELEASE) PO PRN (18:08)
[2019-05-06] MEDS ORDERED: MONTELUKAST SODIUM 10 MG TABLET PO PRN (18:08)
[2019-05-06] MEDS ORDERED: DOCUSATE SODIUM/SENNA 50/8.6MG TAB PO PRN (18:08)
[2019-05-06] MEDS: SODIUM CHLORIDE 0.9% 1000ML 1,000 ML IV SCH (19:33)
[2019-05-06] MEDS ORDERED: GABAPENTIN 400 MG CAP PO ONE (20:00)
[2019-05-06] MEDS: levETIRAcetam 500 MG TAB PO SCH (20:30)
[2019-05-06] MEDS: LORazepam 1 MG TAB PO SCH (20:30)
[2019-05-06] MEDS: PANTOprazole 40 MG TAB PO SCH (20:31)
[2019-05-06] MEDS: OXYCODONE HCL IR 5 MG TAB (IMMEDIATE RELEASE) PO PRN (20:35)
[2019-05-06] MEDS ORDERED: HEPARIN 100 UNIT/ML 5ML FLUSH FLUSH PRN (23:25)
[2019-05-07] MEDS: OXYCODONE HCL IR 5 MG TAB (IMMEDIATE RELEASE) PO PRN ×5 (01:55→21:26)
[2019-05-07] MEDS: GABAPENTIN 400 MG CAP PO SCH ×2 (01:56→07:38)
[2019-05-07 03:25] LABS: Hematocrit (blood only) 29.2 % (37-47); Hemoglobin 9.8 g/dL (12.0-16.0); Mean Corpuscular Hemoglobin 34.1 pg (25-34); Mean Corpuscular Hgb Conc 33.6 g/dL (32-36); Mean Corpuscular Volume 101.7 fL (80-100); Mean Platelet Volume 9.4 fL (7.4-10.4); Nucleated RBC # (auto) 0.02 K/uL (0-0); Nucleated RBC % (auto) 0.3 %; Platelet Count 402 K/uL (130-400); RDW Coefficient of Variation 16.5 % (11.5-14.5); RDW Standard Deviation 60.1 fL (36.4-46.3); Red Blood Count 2.87 M/uL (4.2-5.4)
[2019-05-07 03:35] LABS: Partial Thromboplastin Ratio 1.1
[2019-05-07 03:44] LABS: Albumin Level 1.9 gm/dl (3.4-5.0); BUN Creatinine Ratio 8.6 (10-20); Calcium 7.2 mg/dl (8.5-10.1); Creatinine Clr Calc Pharmacy 135.6 ml/min; Est GFR (African American) 139.5; Est GFR (Non-African American) 120.4; Potassium 3.8 mmol/L (3.5-5.1)
[2019-05-07 03:46] LABS: Albumin Globulin Ratio 0.7 (0.9-2); Bilirubin,Total 0.7 mg/dl (0.2-1); Globulin 2.9 gm/dl (2.5-4.0); Total Protein 4.8 gm/dl (6.4-8.2)
[2019-05-07] MEDS: SODIUM CHLORIDE 0.9% 1000ML 1,000 ML IV SCH ×2 (05:27→15:56)
[2019-05-07] MEDS ORDERED: LORazepam 0.5 MG TAB PO STA (07:15)
[2019-05-07] MEDS ORDERED: OXYCODONE HCL IR 5 MG TAB (IMMEDIATE RELEASE) PO STA (07:15)
[2019-05-07] MEDS ORDERED: MoRPHine SULFATE 4 MG/ML 1 ML CARP\\VIAL IV PRN (07:15)
[2019-05-07] MEDS ORDERED: LORazepam 0.25 MG/0.5 ML VIAL IV PRN (07:17)
[2019-05-07] MEDS: levETIRAcetam 500 MG TAB PO SCH ×2 (07:39→21:24)
--- NOTE | 2019-05-07 08:15 | Electrocardiogram Report ---
Test Reason : Blood Pressure : / mmHG Vent. Rate : 103 BPM Atrial Rate : 103 BPM P-R Int : 132 ms QRS Dur : 054 ms QT Int : 356 ms P-R-T Axes : 046 031 076 degrees QTc Int : 466 ms Poor data quality, interpretation may be adversely affected Sinus tachycardia Low voltage QRS Borderline ECG When compared with ECG of 19-NOV-2018 07:09, No significant change was found Confirmed by Henry Golden ([id number]) on 05/06/2019 5:46:25 PM Referred By: REFERRED SELF Confirmed By:Marcello Golden
[2019-05-07] MEDS ORDERED: FEXOFENADINE HCL 180 MG TAB PO SCH (09:00)
[2019-05-07] MEDS ORDERED: THIAMINE HCL 100 MG TAB PO SCH (09:00)
[2019-05-07] MEDS ORDERED: FOLIC ACID 1 MG TAB PO SCH (09:00)
--- NOTE | 2019-05-07 09:00 | XRay Report ---
XR femur RT 2V routine HISTORY: 48 years-old Female right hip fx acute right hip pain with fracture COMPARISON: CT abdomen and pelvis May 06, 2019 TECHNIQUE: 2 views of the right femur FINDINGS: Acute mildly angulated and impacted subcapital fracture of the right femur redemonstrated with adjace nt soft tissue swelling. The mid and distal portions of the femur appear intact. Mildly demineralized appearance of the bones. IMPRESSION: Acute mildly angulated and impacted subcapital fracture of the right femur redemonstrated with adjacent soft tissue swelling. ACT 112: Negative or not required by law. The above report was generated using voice recognition software. It may contain grammatical, syntax o r spelling errors. Electronically signed by: Scott Blanco M.D. 05/07/2019 8:59 AM
[2019-05-07] MEDS: PROMETHAZINE HCL 25 MG TAB PO PRN ×2 (09:03→22:28)
[2019-05-07] MEDS: PANTOprazole 40 MG TAB PO SCH ×2 (11:20→21:26)
[2019-05-07] MEDS: NITROFURANTOIN MONOHYDRATE 100 MG CAP PO SCH ×2 (11:20→21:25)
--- NOTE | 2019-05-07 12:02 | Hospitalist Progress Note ---
Date of Service May 07, 2019 Assessment & Plan (1) Hip fracture, right: per Ortho needs a hip repair surgically. [facility]. (2) UTI (urinary tract infection): GNB in urine. May have precipitated a fall. Multiple allergies present. Macrobid started pending culture results. May need to adjust based on sensitivity profile. (3) Sinus tachycardia: Secondary to dehydration, uncontrolled pain, or alcohol withdrawal. Continue IV fluids and treat any withdrawal symptoms with Ativan as needed. Continue appropriate pain management control with oxycodone. Cont monitoring on telemetry. (4) Seizure disorder: Patient is noncompliant with seizure medications. Keppra 1500 p.o. twice daily was restarted per home regimen. It does not appear that she had a seizure to precipitate the fall based on her story. Continue seizure precautions. (5) Alcohol use: Elevated alcohol levels on arrival. Patient denies any daily drinking. It is interesting that although she was unable to move for two days, she happened to fall right next to a bottle of wine. [facility] protocol to monitor for alcohol withdrawal. (6) Von Willebrand disease: Although Humate-P available at this institution, we do not possess the ability to monitor vWF levels. Therefore, Hematology and Ortho feel she would be more safely operated on at a tertiary care facility where laine-operative care can be better orchestrated. (7) Anxiety: Lorazepam qHS per home regimen. (8) Anemia: Baseline anemia with 1gm drop overnight. Possible dilution, but acute blood loss from hemorrhage is also a possibility. CT a/p was performed yesterday with no intraabdominal process. Cont to monitor with repeat H/H this afternoon. (9) Blindness: supportive care as needed. (10) Gastroparesis: Chronic, phenergan PRN (11) Pulmonary nodule: follow with outpatient imaging for stability as needed per guidelines. (12) DVT prophylaxis: SCDs DNR Dispo-transfer to [facility] when bed available DO [facility] Hospital[facility] Subjective 48-year-old female presented to the ER after a fall at home. Right leg pain prompted x-rays which revealed an acute mildly angulated and impacted subcapital fracture of the right femur with adjacent soft tissue swelling. A right hip CT revealed an impacted right femoral neck fracture. After her fall which was reported to be from the couch to the floor she was unable to get up and move and stayed on the floor for approximately 2 days. She urinated on herself and was able to drink water and some wine she had next to her. She has a history of excessive alcohol use but reports only half bottle of wine at a time and does not drink daily. Alcohol level was elevated arrival to the ER. His CT angios of the chest was performed revealing no acute aortic pathology or evidence of thromboembolic disease. This study was performed as she reported acute chest pain with shortness of breath. This resolved the following day. She was incidentally noted to have severe hepatic steatosis. Cervical spine CT was also performed revealing no evidence of fracture or subluxation. However, compression deformities of C7, T1 and T2 that appeared chronic were present. Imaging also revealed a 6 mm right apical pulmonary nodule that will need to be monitored with imaging. The patient has a history of seizure disorder and repor ts no seizure for several months. Where she reports last compliance with Keppra to be 1 week ago. She reports remembering the fall which included a baby rabbit knocking a bowl over then her dog getting excited, resulting in her fall to the floor. As she remembers the fall, has no tongue biting, and had no loss of bowel or bladder function it is less likely that she had a seizure precipitating her fall. However, the patient is not a great historian. Keppra and gabapentin were restarted per her home regimen on arrival. She does have a history of von Willebrand's factor and oncology was consulted. This facility does not have the capability to monitor von Willebrand factor levels in order to dose humate-P appropriately perioperatively. Therefore, after discussion with orthopedics, it was decided she would be safer at a tertiary care facility where this can be monitored and dosed as needed. Additionally if any postoperative complications arose, she would have all the resources available if needed. At time of discharge she was mentating at baseline and tolerating p.o. She was discharged in stable condition as a transfer to [facility] in [place]. It is noted that she has been drinking alcohol and has the potential to withdrawal. She is mildly tachycardic at time of discharge which may indicate early withdrawal versus dehydration versus uncontrolled pain. IV fluids were continued up until time of discharge. Close primary care follow-up was recommended 1 week after discharge from receiving facility. Review of Systems Review of Systems: All systems reviewed & are unremarkable except as noted in HPI & below Physical Exam Physical Exam: CONSTITUTIONAL: WNWD, vitals as above, generally well- appearing EYES: normal conjunctivae, no scleral icterus ENT: MMM RESPIRATORY: clear to auscultation bilaterally, no crackles, rales or wheezes, normal respiratory effort CARDIOVASCULAR: tachy rate and regular rhythm, S1 and 2 heard without murmurs, gallops or rubs, no JVD, no peripheral edema CHEST: inspection of chest revealed a port in the right anterior chest wall GASTROINTESTINAL: soft, nontender, nondistended MUSCULOSKELETAL: restricted movement of legs in setting of R hip fracture and pain. head is normocephalic and atraumatic. Bilat lower extremities are NVI. SKIN: warm and dry, ecchymosis on right hip monitoring NEUROLOGIC: CN 2-12 grossly intact, no sensory deficit, normal cognition, normal speech. PSYCHIATRIC: alert cooperative and oriented to person, place and time. Results & Data Vital Signs (Past 12 Hours) Vital Signs Temp Pulse Pulse Resp BP BP Pulse Ox 05/07/19 11:13 36.5 C 133 H 16 121/84 92 05/07/19 10:02 109 H 05/07/19 07:05 37.2 C 127 H 16 118/85 94 05/07/19 04:22 37.1 C 111 H 18 122/86 97 Laboratory Results Short CBC 05/07/19 Range/Units 03:09 WBC 6.20 (4.8-10.8) K/uL Hgb 9.8 L (12.0-16.0) g/dL Hct 29.2 L (37-47) % Plt Count 402 H (130-400) K/uL BMP 05/06/19 05/07/19 11:43 03:09 Sodium 143 139 Potassium 4.0 3.8 Chloride 111 H 108 H Carbon Dioxide 22 24 BUN 4 L 4 L Creatinine 0.46 L 0.42 L Glucose 85 69 L Calcium 8.0 L 7.2 L Cardiac Enzymes 05/06/19 05/06/19 Range/Units 11:43 11:43 Total Creatine Kinase 62 52 (26-192) U/L CK-MB (CK-2) 1.8 (0.5-3.6) ng/ml Troponin I 0.018 (0-0.045) ng/ml Liver Function 05/06/19 05/07/19 Range/Units 11:43 03:09 Total Bilirubin 0.6 0.7 (0.2-1) mg/dl AST 111 H 109 H (15-37) U/L ALT 55 49 (12-78) U/L Alkaline Phosphatase 172 H 162 H (45-117) U/L Albumin 2.1 L 1.9 L (3.4-5.0) gm/dl Urine 05/06/19 Range/Units 13:00 Urine Color Yellow Urine Appearance Clear (Clear) Urine pH 5.5 (4.5-7.5) Ur Specific [place] 1.007 (1.000-1.030) Urine Protein Negative (Negative) Urine Glucose (UA) Negative (Negative) Medications Administered Current Inpatient Medications Fexofenadine HCl (Maame) 180 mg PO QAM [facility] Stop: 06/06/19 08:59 Last Admin: 05/07/19 11:20 Dose: 180 mg Documented by: Folic Acid (Folvite) 1 mg PO QAM [facility] Stop: 06/06/19 08:59 Last Admin: 05/07/19 11:20 Dose: 1 mg Documented by: Gabapentin (Neurontin) 400 mg PO Q8H [facility] Stop: 05/08/19 08:01 Gabapentin (Neurontin) 400 mg PO Q12H [facility] Stop: 05/09/19 08:01 Gabapentin (Neurontin) 400 mg PO Q24H [facility] Stop: 05/10/19 08:01 Heparin Sodium (Porcine) (Heparin Sod 100 Unit/Ml Flush) 5 ml FLUSH PRN PRN PRN Reason: Flush Stop: 06/05/19 23:29 Sodium Chloride (Nss 1000ml) 1,000 mls @ 100 mls/hr IV .Q10H [facility] Stop: 06/05/19 18:07 Last Admin: 05/07/19 05:27 Dose: 100 mls/hr Documented by: Lorazepam (Ativan) 0.25 mg in 0.5 mls @ 0.5 mls/min IV Q4H PRN PRN Reason: Anxiety Stop: 06/06/19 07:16 Last Admin: 05/07/19 11:32 Dose: 0.5 mls/min Documented by: Levetiracetam (Keppra) 1,500 mg PO BID [facility] Stop: 06/05/19 20:59 Last Admin: 05/07/19 07:39 Dose: 1,500 mg Documented by: Lorazepam (Ativan) 1 mg PO HS [facility] Stop: 06/05/19 20:59 Last Admin: 05/06/19 20:30 Dose: 1 mg Documented by: Magnesium Hydroxide (Milk Of Magnesia) 30 ml PO DAILY PRN PRN Reason: Constipation Stop: 06/05/19 18:07 Miscellaneous (Order Awaiting Action) 1 ea N/A QS [facility] Stop: 06/06/19 00:00 Last Admin: 05/07/19 11:23 Dose: Not Given Documented by: Montelukast Sodium (Singulair) 10 mg PO QAM PRN PRN Reason: Allergy Symptoms Stop: 06/05/19 18:07 Morphine Sulfate (Morphine Sulfate) 2 mg IV Q4H PRN PRN Reason: Pain Stop: 05/21/19 07:14 Naloxone HCl (Narcan) 0.1 mg IV UD PRN PRN Reason: Opiate Overdose Stop: 06/05/19 18:07 Nitrofurantoin Macrocrystals (Macrobid) 100 mg PO BID [facility] Stop: 05/12/19 08:59 Last Admin: 05/07/19 11:20 Dose: 100 mg Documented by: Oxycodone HCl (Roxicodone Immediate Rel) 5 mg PO Q4H PRN PRN Reason: Pain Stop: 05/20/19 18:07 Last Admin: 05/07/19 11:32 Dose: 5 mg Documented by: Pantoprazole Sodium (Protonix) 40 mg PO BID [facility] Stop: 06/05/19 20:59 Last Admin: 05/07/19 11:20 Dose: 40 mg Documented by: Promethazine HCl (Phenergan) 25 mg PO TIDM PRN PRN Reason: Nausea And Vomiting Stop: 06/05/19 18:07 Last Admin: 05/07/19 09:03 Dose: 25 mg Documented by: Senna/Docusate Sodium (Senokot S) 2 tab PO HS PRN PRN Reason: constipation Stop: 06/05/19 18:07 Thiamine HCl (Vitamin B-1) 100 mg PO QAM [facility] Stop: 06/06/19 08:59 Last Admin: 05/07/19 11:20 Dose: 100 mg Documented by: Trazodone HCl (Desyrel) 50 mg PO HS PRN PRN Reason: Sleep Stop: 06/05/19 18:07
--- NOTE | 2019-05-07 12:46 | Discharge Summary ---
Date of Service May 07, 2019 Admission HPI Per Admitting Provider 48-year-old female who has a known past medical history of von willebrand disease, seizure disorder, peptic ulcer disease, anxiety, depression, gastroparesis, history of gastrectomy, osteoporosis, blidness, left shoulder impingement, non compliant who presents to [facility] ED secondary after found herself on the floor. Patient said about 2 days ago he woke up and found herself on the floor. She said that initially she was on the couch with her dog sleeping, and she woke up and found herself on the floor. She said that she was not able to get up or move her right LE due to severe pain in her right hip from the fall. she said that she did not want to call anyone for help she said that she stayed on the floor for 2 days with her dog by her side. She said today she tried to reach for her phone and called for help. She said that she did not eat for 2 days but she had a bottle of water and bottle of wine next to her couch that she drank. She said that she drank the bottle of wine for [place]. Patient said that during the last 2 days she had to urinate on the floor. She said that she is not sure if she had a seizure because she is not compliant with her seizure med. She does not remember when was the last time she had a seizure. Patient said that she does not like to take any medication because of side effects. She said that she only drink alcohol when she is bored or in the weekend. She denies any symptom of alcohol withdrawal if she does not drink for a few days. She does not want to stay in the hospital because she said she had so much to do at home. Denies any chest pain, palpitation, dizziness, fever, shortness of breath. Admission Exam Per Admitting Provider General- No acute distress Head- atraumatic Eyes- Legally blind ENT- oropharynx clear Neck- supple, no JVD Lungs- clear to auscultation Heart- regular rhythm; no murmur Abdomen- normal bowel sounds, soft, +tenderness with palpation (refused to let me examine her abdomen to look for hematoma/bruises) Extremities- no calf tenderness, Right hip pain, +edema Neuro- alert, oriented x 3; no facial palsy; no dysarthria Skin- warm & dry, bruises in extremities Principal Diagnosis Acute mildly angulated and impacted subcapital fracture of the right femur Seizure disorder with noncompliance with medications ETOH intoxication Anemia von Willebrand disease osteoporosis UTI Discharge Data Allergies Allergy/AdvReac Type Severity Reaction Status Date / Time iron dextran complex Allergy Severe SOB, heart Verified 05/06/19 14:34 racing (see comments) cat dander Allergy Intermediate eye Verified 05/06/19 14:34 watering ceftriaxone Allergy Intermediate Hives Verified 05/06/19 14:34 ciprofloxacin Allergy Intermediate lips Verified 05/06/19 14:34 burning/peeling doxycycline Allergy Intermediate hives, Verified 05/06/19 14:34 vomiting latex Allergy Intermediate mouth Verified 05/06/19 14:34 hives/burning sensation Penicillins Allergy Intermediate Hives Verified 05/06/19 14:34 Quinolones Allergy Intermediate Hives Verified 05/06/19 14:34 Sulfa (Sulfonamide Allergy Intermediate hives Verified 05/06/19 14:34 Antibiotics) Aminoglycosides Allergy Unknown unknown Verified 05/06/19 14:34 reaction tobramycin AdvReac Severe blindness Verified 05/06/19 14:34 lactose AdvReac Intermediate nausea, GI Verified 05/06/19 14:34 upset citalopram AdvReac Mild restlessnes Verified 05/06/19 14:34 s Ferric Oxide Allergy Intermediate hives (see Uncoded 05/06/19 14:34 comments) Consultations 05/06/19 13:54 ED Decision to Admit Stat 05/06/19 18:08 Consult Case Management - Discharge Planning Routine Consult Oncology Routine Consult Orthopedic Surgery Routine 05/07/19 09:38 Consult Anesthesiology Routine 05/07/19 12:40 Burn CD for patient Routine Procedures Performed Operation Date: 05/07/19 13:55 <No data on this case meets the specified criteria> Ordered Studies 05/06/19 11:23 CT abd pelvis IV con only Stat CT angio chest PE protocol Stat CT cervical spine wo con Stat CT head/brain wo con Stat 05/06/19 13:17 CT hip RT wo con Stat Hospital Course (1) Hip fracture, right: (2) UTI (urinary tract infection): (3) Sinus tachycardia: (4) Seizure disorder: (5) Alcohol use: (6) Von Willebrand disease: (7) Anxiety: (8) Anemia: (9) Blindness: (10) Gastroparesis: (11) Pulmonary nodule: 48-year-old female presented to the ER after a fall at home. Right leg pain prompted x-rays which revealed an acute mildly angulated and impacted subcapital fracture of the right femur with adjacent soft tissue swelling. A right hip CT revealed an impacted right femoral neck fracture. After her fall which was reported to be from the couch to the floor she was unable to get up and move and stayed on the floor for approximately 2 days. She urinated on herself and was able to drink water and some wine she had next to her. She has a history of excessive alcohol use but reports only half bottle of wine at a time and does not drink daily. Alcohol level was elevated arrival to the ER. His CT angio of the chest was performed revealing no acute aortic pathology or evidence of thromboembolic disease. This study was performed as she reported acute chest pain with shortness of breath. This resolved the following day. She was incidentally noted to have severe hepatic steatosis. Cervical spine CT was also performed revealing no evidence of fracture or subluxation. However, compression deformities of C7, T1 and T2 that appeared chronic were present. Imaging also revealed a 6 mm right apical pulmonary nodule that will need to be monitored with imaging. The patient has a history of seizure disorder and reports no seizure for several months. Where she reports last compliance with Keppra to be one week ago. She reports remembering the fall which included a baby rabbit knocking a bowl over then her dog getting excited, resulting in her fall to the floor. As she remembers the fall, has no tongue biting, and had no loss of bowel or bladder function it is less likely that she had a seizure precipitating her fall. However, the patient is not a great historian as she doesn't remember everything and was intoxicated for some time. Keppra and gabapentin were restarted per her home regimen on arrival. She does have a history of von Willebrand's disease and oncology was consulted. This facility does not have the capability to monitor von Willebrand factor levels in order to dose the needed humate-P appropriately perioperatively. Therefore, after discussion with orthopedics, it was decided she would be safer at a tertiary care facility where this can be monitored and dosed as needed. Additionally if any postoperative complications arose, she would have all the resources available if needed. At time of discharge she was mentating at baseline and tolerating p.o. She was discharged in stable condition as a transfer to [facility] in [place]. It is noted that she has been drinking alcohol and has the potential to withdrawal. She is mildly tachycardic at time of discharge which may indicate early withdrawal versus dehydration versus uncontrolled pain. IV fluids were continued up until time of discharge. A repeat H/H was drawn this afternoon prior to discharge and was increased at 10/29.7. Active bleeding was thought less probable as a cause of anemia, and this is close to her baseline H/H. Close primary care follow-up was recommended 1 week after discharge from receiving facility. Total Time Total Time Spent Total Time Spent (In Minutes): 60 Total Time Includes: Examination of the Patient, Discharge Planning, Medication Reconciliation and Communication With Other Providers Discharge Plan Discharge Items Patient Disposition: Transfer Acute Care Hospital Reason For Visit: S/P FALL/RIGHT HIP PAIN Discharge Diagnosis: Acute mildly angulated and impacted subcapital fracture of the right femur Seizure disorder with noncompliance with medications ETOH intoxication Anemia von Willebrand disease osteoporosis UTI Activity: As commented below Activity Comment: per receiving facility Non-emergency contact: Primary Care Provider Call non-emergency contact if: you have any medication questions, your symptoms worsen, your pain is not controlled, your pain is worsening, your pain is unusual for you, your pain is concerning for you and you have a fever Follow-up/Referrals: Jaspal Bae MD [Primary Care Provider] - Diet: Regular Addtl Attending Provider Instructions: You are being transferred to [facility] in [place] to complete your care. Please ensure you see your primary care physician within one week of discharge from this hospital. It was a pleasure taking care of you! Please call if you have any questions or problems. You can reach a [facility] hospitalist on duty at [facility] 24 hours a day by calling [phone]. Take care of yourself. Olivia Sims, DO [facility] Pending Studies at Discharge: Yes Studies:: urine culture Stand-Alone Forms: [facility] Skilled Items Patient informed of condition?: Yes DNR: Yes Discharge Level of Care: Other Communicable Disease: No Discharge Prognosis: Improving Lines: Peripheral IV Urinary Catheter: Yes Medications and DC Order Prescriptions: Continued trazodone 50 mg Tablet 50 mg PO HS PRN (Reason: Sleep) RF: 0 levetiracetam [Keppra] 500 mg tablet 1,500 mg PO BID RF: 0 gabapentin 400 mg capsule 400 mg PO TID RF: 0 lorazepam [Ativan] 1 mg tablet 1 mg PO HS RF: 0 Forteo 20 mcg/dose - 600 mcg/2.4 mL Pen Injector 20 mcg SUBCUT DAILY RF: 0 cyclobenzaprine 5 mg tablet 5 mg PO TID PRN (Reason: Muscle Spasm) RF: 0 fexofenadine 180 mg Tablet 180 mg PO QAM RF: 0 furosemide [Lasix] 20 mg tablet 40 mg PO DAILY PRN (Reason: Edema) RF: 0 pantoprazole [Protonix] 40 mg tablet,delayed release (DR/EC) 40 mg PO BID RF: 0 promethazine 25 mg tablet 25 mg PO TIDM PRN (Reason: Nausea And Vomiting) RF: 0 montelukast [Singulair] 10 mg tablet 10 mg PO QAM PRN (Reason: Allergy Symptoms) RF: 0 potassium chloride [Klor-Con M10] 10 mEq tablet,ER particles/crystals 20 meq PO DAILY PRN (Reason: Edema) RF: 0 Discharge Orders: Discharge Order (Routine); Ordered 05/07/19 Ordered By: Olivia Sims Admission Data Admit Date/Time: 05/06/19 15:24 Attending Provider: Olivia Sims Admit Provider: Jose Alonso Primary Care Provider: Jaspal Bae Other Providers: Jose Alonso ; Beto Suazo ; Rc Rebollar ; Matt Olvera
[2019-05-07] MEDS ORDERED: GABAPENTIN 600 MG TAB PO SCH ×2 (14:00)
[2019-05-07 14:08] LABS: Hematocrit (blood only) 29.7 % (37-47)
[2019-05-07] MEDS ORDERED: GABAPENTIN 400 MG CAP PO SCH (16:00)
--- NOTE | 2019-05-07 16:34 | Oncology Consultation ---
Date of Consultation May 07, 2019 Assessment & Plan (1) Von Willebrand disease: Ms. Palomino has type II von Willebrand's disease. She has required treatment with Humate-P in the past for surgeries. Unfortunately, we lack the ability to check vWF activity or factor VIII levels in real time. This makes managing patients in the laine-operative period difficult. In light of the higher bleeding risk of this surgery and her relative clinical stability, I would favor transfer to a tertiary care center where her Humate-P can be dosed by activity levels. I reviewed this with orthopedic surgery and her primary team and they were both comfortable with this plan. She also was scheduled to see Dr. Lanza next week, so I will reschedule that appointment. Present on Admission?: Yes History of Present Illness Reason for Consultation: Type II von Willebrand's disease Right femoral fracture Attending Physician: Olivia Sims, DO History of Present Illness Ms. Palomino is a 48 year old woman with a history of alcohol abuse, PUD with a partial gastrectomy in the past, gastroparesis, a seizure disorder, anxiety, depression, osteoporosis, and blindness. She also has type II von Willebrand's disease and has had hemorrhagic episodes in the past. She is generally treated with Humate-P prior to surgeries. She suffered a fall and a humeral fracture this summer and required ORIF. We treated her empirically with Humate-P prior to and after that surgery and she did well. She fell off her couch on the night prior to admission. Her recall of the events is fuzzy and she had been drinking the night before. She woke up on the floor with right hip pain and was found to have an acute mildly angulated and impacted subcapital fracture of the right femur. She has a modestly sized ecchymosis at that site but no fullness or tightness of the skin. It is sore but she denies any severe or worsening pain. She denies any headaches, bleeding elsewhere, shortness of breath, chest pain, or abdominal pain. Allergies Allergy/AdvReac Type Severity Reaction Status Date / Time iron dextran complex Allergy Severe SOB, heart Verified 05/06/19 14:34 racing (see comments) cat dander Allergy Intermediate eye Verified 05/06/19 14:34 watering ceftriaxone Allergy Intermediate Hives Verified 05/06/19 14:34 ciprofloxacin Allergy Intermediate lips Verified 05/06/19 14:34 burning/peeling doxycycline Allergy Intermediate hives, Verified 05/06/19 14:34 vomiting latex Allergy Intermediate mouth Verified 05/06/19 14:34 hives/burning sensation Penicillins Allergy Intermediate Hives Verified 05/06/19 14:34 Quinolones Allergy Intermediate Hives Verified 05/06/19 14:34 Sulfa (Sulfonamide Allergy Intermediate hives Verified 05/06/19 14:34 Antibiotics) Aminoglycosides Allergy Unknown unknown Verified 05/06/19 14:34 reaction tobramycin AdvReac Severe blindness Verified 05/06/19 14:34 lactose AdvReac Intermediate nausea, GI Verified 05/06/19 14:34 upset citalopram AdvReac Mild restlessnes Verified 05/06/19 14:34 s Ferric Oxide Allergy Intermediate hives (see Uncoded 05/06/19 14:34 comments) Home Medications Home Medications Medication Instructions Recorded Confirmed Type cyclobenzaprine 5 mg PO TID PRN 01/29/18 05/06/19 History fexofenadine 180 mg PO QAM 01/29/18 05/06/19 History furosemide [Lasix] 40 mg PO DAILY PRN 01/29/18 05/06/19 History montelukast [Singulair] 10 mg PO QAM PRN 01/29/18 05/06/19 History pantoprazole [Protonix] 40 mg PO BID 01/29/18 05/06/19 History potassium chloride [Klor-Con M10] 20 meq PO DAILY PRN 01/29/18 05/06/19 History promethazine 25 mg PO TIDM PRN 01/29/18 05/06/19 History levetiracetam [Keppra] 1,500 mg PO BID 07/07/18 05/06/19 History trazodone 50 mg PO HS PRN 07/07/18 05/06/19 History gabapentin 400 mg PO TID 11/18/18 05/06/19 History lorazepam [Ativan] 1 mg PO HS 11/18/18 05/06/19 History teriparatide [Forteo] 20 mcg SUBCUT DAILY 03/18/19 05/06/19 History Patient History Medical History Anemia hx of blood transfusion (post-operatively 10/2018) Anxiety 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 Lanza Surgical History H/O foot surgery RT HEEL SURGERY X 2 (HARDWARE INTACT) TOE CORRECTION X 3 (PINS INTACT ON RT FOOT) H/O shoulder surgery RT HUMERUS FX REPAIRED (HARDWARE INTACT) H/O wisdom tooth extraction H/O wrist surgery LEFT WRIST X 2 SURGERIES History of cholecystectomy History of colonoscopy History of esophagogastroduodenoscopy (EGD) History of gastrectomy secondary to PUD (OVER 10 YEARS AGO) History of hand surgery LEFT HAND FINGER REPAIR History of hysterectomy (Acute) History of vascular access device MEDIPORT INTACT Family History Father Diabetes Mother Von Willebrand disease Grandmother (Paternal) Family hx of colon cancer Social History Preferred Language: Chinese Communication Ability: Effective Animal Cytologist Required: No Beliefs That Will Affect Care: None marital status: Current Living Situation: Alone current occupational status: disabled Other Information That Helps Us Care for You: No Feels Safe at Home: Yes Safety Concerns: Feels Safe At This Time Smoking Status: Never smoker Second Hand Exposure: No ; Hx Alcohol Use: Yes Alcohol type: wine Hx Substance Use: No Review of Systems Review of Systems: All systems reviewed & are unremarkable except as noted in HPI & below Physical Exam Constitutional: healthy appearing and comfortable; no acute distress ENMT: external ear and nose normal, oropharynx normal Respiratory: normal respiratory effort, lungs clear to auscultation Cardiovascular: RRR, no murmur, no edema Gastrointestinal (Abdomen): Inspection/Auscultation: normal bowel sounds Percussion/Palpation: abdomen soft; abdomen nontender Musculoskeletal: She has an ecchymosis on the lateral aspect of her right hip, near where she fell Psychiatric: A+Ox3, euthymic affect Results & Data Vital Signs (Past 12 Hours) Vital Signs Temp Pulse Pulse Resp BP BP Pulse Ox 05/07/19 15:11 36.5 C 121 H 19 113/80 95 05/07/19 11:13 36.5 C 133 H 16 121/84 92 05/07/19 10:02 109 H 05/07/19 07:05 37.2 C 127 H 16 118/85 94 Laboratory Results Abnormal lab results 05/06/19 05/07/19 05/07/19 Range/Units 21:05 03:09 03:09 RBC 2.87 L (4.2-5.4) M/uL Hgb 9.8 L (12.0-16.0) g/dL Hct 29.2 L (37-47) % MCV 101.7 H (80-100) fL MCH 34.1 H (25-34) pg RDW Std Deviation 60.1 H (36.4-46.3) fL RDW Coeff of Lisa 16.5 H (11.5-14.5) % Plt Count 402 H (130-400) K/uL Absolute Nucleated RBC 0.02 H (0-0) K/uL Chloride 108 H (98-107) mmol/L BUN 4 L (7-18) mg/dl Creatinine 0.42 L (0.6-1.2) mg/dl BUN/Creatinine Ratio 8.6 L (10-20) Glucose 69 L (70-99) mg/dl Lactate 3.7 H* (0.4-2.0) mmol/L Calcium 7.2 L (8.5-10.1) mg/dl AST 109 H (15-37) U/L Alkaline Phosphatase 162 H (45-117) U/L Total Protein 4.8 L (6.4-8.2) gm/dl Albumin 1.9 L (3.4-5.0) gm/dl Albumin/Globulin Ratio 0.7 L (0.9-2) Antibody Screen 05/07/19 05/07/19 Range/Units 10:06 13:45 RBC (4.2-5.4) M/uL Hgb 10.0 L (12.0-16.0) g/dL Hct 29.7 L (37-47) % MCV (80-100) fL MCH (25-34) pg RDW Std Deviation (36.4-46.3) fL RDW Coeff of Lisa (11.5-14.5) % Plt Count (130-400) K/uL Absolute Nucleated RBC (0-0) K/uL Chloride (98-107) mmol/L BUN (7-18) mg/dl Creatinine (0.6-1.2) mg/dl BUN/Creatinine Ratio (10-20) Glucose (70-99) mg/dl Lactate (0.4-2.0) mmol/L Calcium (8.5-10.1) mg/dl AST (15-37) U/L Alkaline Phosphatase (45-117) U/L Total Protein (6.4-8.2) gm/dl Albumin (3.4-5.0) gm/dl Albumin/Globulin Ratio (0.9-2) Antibody Screen POSITIVE A Diagnostic Findings CT Hip, 05/06/18: IMPRESSION: Impacted right femoral neck fracture. CTA Chest, 05/06/18: IMPRESSION: 1. No acute aortic pathology or evidence of pulmonary thromboembolic disease. 2. Trace right and small left pleural effusions with mild dependent bibasilar atelectasis. 3. Collateral vessels of the mediastinum redemonstrated. 4. Severe hepatic steatosis. 5. Additional findings as above. CT A/P with contrast, 05/06/18: MPRESSION: 1. There is an impacted and angulated subcapital fracture of the right femur. 2. There is no evidence of solid organ injury in the abdomen or pelvis. 3. Hepatomegaly and severe hepatic steatosis. 4. There is evidence of fluid overload including trace pleural effusions, a small volume of free fluid in the pelvis, and body wall edema. 5. Moderate hiatal hernia and postoperative change from gastric resection. 6. Additional findings as above.
[2019-05-07] MEDS ORDERED: LORazepam 0.5 MG/1 ML VIAL IV STA (17:42)
[2019-05-07] MEDS: LORazepam 1 MG TAB PO SCH (21:24)
[2019-05-08] MEDS ORDERED: GABAPENTIN 600 MG TAB PO SCH (18:00)
[2019-05-08] MEDS ORDERED: GABAPENTIN 400 MG CAP PO SCH (20:00)
[2019-05-10] MEDS ORDERED: GABAPENTIN 600 MG TAB PO SCH (06:00)
[2019-05-10] MEDS ORDERED: GABAPENTIN 400 MG CAP PO SCH (08:00)
== END 2019-05-07 22:34 | disposition short-term general hospital (02) | DRG 536 ==
LOC: ED 11:02 → 2N 15:24 → SUATTDRO 15:24 → 2N 16:14

== ENCOUNTER 2019-10-24 09:25 | Inpatient (IN) ==
--- NOTE | 2019-10-24 09:45 | Emergency Department Note ---
Impression & Plan Nausea & vomiting, Anemia, Chest pain, Suicidal ideation, Fall, Left forearm pain ED Provider Note NAME: DAT CAMP AGE: 49 SEX: F : 1970 ARRIVES VIA: Ambulance INFORMANT: Patient, ED PROVIDER(S): Stef Robison MD Chief Complaint: Rib pain HPI: Patient does present with rib pain. The patient states that the she did have a hemopneumothorax last month which was treated. The patient states that she is had worsening pain over the last 2 days. She discrete localizes it to the left posterior back. The patient states that she has had 2 recent falls but that she fell to each side in the last several days. The patient denies any LOC does not take blood thinners and did not strike her head. Patient has tried taking [id number] medications without much relief. The patient denies any shortness of breath but does have associated nausea. The patient does have limitations including blindness. The patient denies exertional chest pain but pain to palpation and movement does make it worse. Patient denies any lower extremity swelling or history of DVT or PE. Patient does have a history of von Willebrand's. ROS: See HPI for pertinent positives and negatives. A total of 10 systems were reviewed and otherwise negative. Past medical history: See below Surgical history: See below Social history: See below Physical Exam: GENERAL: Mildly uncomfortable in appearance, wearing glasses and a mask . EYE EXAM: Normal conjunctiva. PERRL, no anisocoria and EOM's grossly intact w/o pain. NECK: Supple, no nuchal rigidity, no adenopathy, non-tender. No signs of meningismus. Chest: Posterior aspect with 2 chito well-healing site with dressing over the back without any obvious fluctuance drainage or swelling. No obvious hematoma ecchymosis or crepitus over the left anterior lateral or posterior chest wall. LUNGS: Clear to auscultation. Normal chest wall mechanics. HEART: NSR, no MRG. ABDOMEN: Abdomen soft, non-tender, normo-active bowel sounds, no masses, no rebound or guarding. BACK: No CVA TTP. SKIN: No rashes and no bruising. UPPER EXTREMITIES: Pain and ecchymosis to the left mid forearm, compartments are soft and distally. LOWER EXTREMITIES: Grossly normal, no edema. NEURO EXAM: A&O x3, cranial nerves II-XII grossly intact, slow deliberate speech, moves all 4 extremities on command w/o issue. Differential diagnoses: Cardiac ischemia, aortic dissection, pulmonary embolism, pneumothorax, pneumonia, pericarditis, myocarditis, esophageal rupture, GERD, cholecystitis, pancreatitis, musculoskeletal, as well as other pathologies. Course: Patient was seen and evaluated the bedside. Full history physical exam was performed. EKG: Indication: Chest pain Sinus tachycardia, rate of 102, normal intervals, normal axis, no ST changes. No significant change from comparison EKG September 22, 2019. Imaging Studies: Radiology results as stated below per my review in the radiologist's interpretation: TWO VIEW CHEST CLINICAL HISTORY: Atypical chest pain. Fall. FINDINGS: AP and lateral chest radiographs are compared to chest x-ray and chest CT dated 09/22/2019. A right internal jugular central venous infusion port is unchanged in position. A chest tube has been removed from previous. The cardiomediastinal silhouette is unremarkable noting mild atherosclerotic c alcification of the thoracic aorta. Airspace consolidation is again seen in the left lung base. There is a small left pleural effusion. Atelectasis is noted at the right lung base. There is no pneumothorax. The skeletal structures are osteopenic. There is chronic posttraumatic deformity and postoperative change identified in the right humerus. There are subacute left-sided rib fractures. Skin clips project over the left upper quadrant of the abdomen. Cholecystectomy clips are noted in the right upper quadrant. IMPRESSION: 1. A chest tube has been removed as compared to previous. No recurrent or residual pneumothorax is identified. 2. There is a small left pleural effusion, with left basilar opacities which likely represent atelectasis. Correlate clinically for evidence of a superimposed infectious/inflammatory pneumonitis. 3. There are subacute left-sided rib fractures, similar in appearance to previous. ACT 112: Negative or not required by law. Electronically signed by: Geovanny Marcelo M.D. 10/24/2019 1:44 PM Dictated: 10/24/19 1340 Transcribed: 10/24/19 1340 LEFT FOREARM 2 VIEWS CLINICAL HISTORY: Fall. Left arm injury. FINDINGS: AP and lateral views of the left forearm are correlated with radiograph of the left wrist dated 09/29/2007. The skeletal structures are os teopenic. There is chronic posttraumatic deformity of the distal radial metaphysis. No acute fracture is identified in the right forearm. The wrist and elbow joints are grossly maintained. Soft tissue edema is present around the mid to distal forearm. IMPRESSION: Soft tissue swelling with no radiographic evidence of acute left forearm fracture. Electronically signed by: Geovanny Marcelo M.D. 10/24/2019 1:40 PM Dictated: 10/24/19 1338 Transcribed: 10/24/19 1338 Cardiac monitoring: An order was placed for continuous cardiac monitoring. The monitor shows a rate of 102 with sinus tachycardia rhythm. MDM: Patient does present with concern for left-sided chest discomfort and associated vomiting. The patient did have blood work completed along with an EKG, troponin, chest x-ray was given pain and nausea medication. Patient is a normal white count. The patient does have anemia. The patient's platelet count is slightly above the normal. Kidney function is unremarkable. The patient does have a slightly detectable troponin. EKG appears unchanged and the patient has had an elevated troponin in the past due to dehydration. The patient had received some IV fluids. I did have a discussion at length with the patient will determine whether or not the patient would like to continue treatment here in the emergency department or consider observation as the patient initially though feeling improved was having some recurrence in her nausea. I believe ACS to be less likely as the patient has a nonischemic EKG and has had an elevated troponin in the past. Patient's chest x-ray shows chronic changes and the patient does not have any evidence of fracture on her forearm. The patient does not have any element or presence of any bruising over the abdomen or chest I do not believe that she requires advanced imaging there. Patient further iterated to the nurse that she wanted to kill herself. The patient states that she had means and ability to do so. Patient was seen and e valuated by psych disability case manager who stated the patient had clear thought process and the patient was still stating that the patient wanted to harm herself and had a plan in which to do so. I did speak with the on-call hospitalist additional labs were ordered and the patient was ordered some nausea medication. The patient was subsequently admitted to the [facility] medicine service. 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 Lanza Surgical History H/O foot surgery RT HEEL SURGERY X 2 (HARDWARE INTACT) TOE CORRECTION X 3 (PINS INTACT ON RT FOOT) H/O shoulder surgery RT HUMERUS FX REPAIRED (HARDWARE INTACT) H/O wisdom tooth extraction H/O wrist surgery LEFT WRIST X 2 SURGERIES History of cholecystectomy History of colonoscopy History of esophagogastroduodenoscopy (EGD) History of gastrectomy secondary to PUD (OVER 10 YEARS AGO) History of hand surgery LEFT HAND FINGER REPAIR History of hysterectomy (Acute) History of vascular access device MEDIPORT INTACT Family History Father Diabetes Mother Von Willebrand disease Grandmother (Paternal) Family hx of colon cancer Social History Preferred Language: Lithuanian Communication Ability: Effective Physician Locums Urgent Care Required: No Beliefs That Will Affect Care: None marital status: Current Living Situation: Alone current occupational status: disabled Other Information That Helps Us Care for You: No Feels Safe at Home: Yes Safety Concerns: Feels Safe At This Time Smoking Status: Never smoker Do You Dip or Chew Tobacco: No ; Second Hand Expos ure: No ; Tobacco Cessation Education Requested by Patient: No Hx Alcohol Use: Yes Alcohol type: wine Hx Substance Use: No Allergies Allergies Allergy/AdvReac Type Severity Reaction Status Date / Time iron dextran complex Allergy Severe SOB, heart Verified 09/22/19 22:58 racing (see comments) cat dander Allergy Intermediate eye Verified 09/22/19 22:58 watering ceftriaxone Allergy Intermediate Hives Verified 09/22/19 22:58 ciprofloxacin Allergy Intermediate lips Verified 09/22/19 22:58 burning/peeling doxycycline Allergy Intermediate hives, Verified 09/22/19 22:58 vomiting latex Allergy Intermediate mouth Verified 09/22/19 22:58 hives/burning sensation Penicillins Allergy Intermediate Hives Verified 09/22/19 22:58 Quinolones Allergy Intermediate Hives Verified 09/22/19 22:58 Sulfa (Sulfonamide Allergy Intermediate hives Verified 09/22/19 22:58 Antibiotics) Aminoglycosides Allergy Unknown unknown Verified 09/22/19 22:58 reaction tobramycin AdvReac Severe blindness Verified 09/22/19 22:58 lactose AdvReac Intermediate nausea, GI Verified 09/22/19 22:58 upset citalopram AdvReac Mild restlessnes Verified 09/22/19 22:58 s Ferric Oxide Allergy Intermediate hives (see Uncoded 09/22/19 22:58 comments) Home Meds Home Medications Medication Instructions Recorded Confirmed cyclobenzaprine 5 mg PO TID PRN 01/29/18 10/24/19 pantoprazole [Protonix] 40 mg PO BID 01/29/18 10/24/19 potassium chloride [Klor-Con M10] 20 meq PO QAM 01/29/18 10/24/19 promethazine 25 mg PO TIDM PRN 01/29/18 10/24/19 levetiracetam [Keppra] 1,500 mg PO BID 07/07/18 10/24/19 trazodone 50 mg PO HS PRN 07/07/18 10/24/19 gabapentin 400 mg PO TID 11/18/18 10/24/19 lorazepam [Ativan] 1 mg PO Q8H PRN 11/18/18 10/24/19 Forteo 20 mcg SUBCUT DAILY 03/18/19 10/24/19 cholecalciferol (vitamin D3) 5,000 unit PO QAM 05/22/19 10/24/19 [Vitamin D3] fexofenadine [Maame Allergy] 180 mg PO DAILY 09/22/19 10/24/19 furosemide 40 mg PO QAM 10/24/19 10/24/19 montelukast 10 mg PO DAILY 10/24/19 10/24/19 oxycodone 5 mg PO QID PRN 10/24/19 10/24/19 Previous Rx's Medication Instructions Recorded ondansetron 4 mg PO Q12H PRN 3 Days #9 tab 10/24/19 promethazine 25 mg MA Q6H PRN #12 ea 10/24/19 Results & Data (ED) Vital Signs Vital Signs - 24 hr 10/24/19 09:28 10/24/19 09:34 10/24/19 09:36 Temperature 37.1 C Temperature Source Oral Pulse Rate 117 H 76 120 H Pulse Rate [Finger] Respiratory Rate 20 18 22 Respiratory Effort / Characteristics Non-Labored Respiratory Depth Normal Respiratory Pattern Blood Pressure 142/81 H 142/81 H Blood Pressure [Right Arm] Blood Pressure Mean 99 101 Blood Pressure Mean [Right Arm] Pulse Oximetry 99 Oxygen Delivery Method Room Air Sepsis Recent Fever Within 48 Hours No Sepsis New/Unexplained Change in Mental Status No Sepsis Action Taken by Nursing No Action Required 10/24/19 09:45 10/24/19 10:00 10/24/19 10:15 Temperature Temperature Source Pulse Rate 102 H 117 H 114 H Pulse Rate [Finger] Respiratory Rate 16 16 23 Respiratory Effort / Characteristics Respiratory Depth Respiratory Pattern Blood Pressure Blood Pressure [Right Arm] Blood Pressure Mean Blood Pressure Mean [Right Arm] Pulse Oximetry Oxygen Delivery Method Sepsis Recent Fever Within 48 Hours Sepsis New/Unexplained Change in Mental Status Sepsis Action Taken by Nursing 10/24/19 10:30 10/24/19 10:31 10/24/19 10:32 Temperature Temperature Source Pulse Rate 114 H Pulse Rate [Finger] 107 H Respiratory Rate 16 16 Respiratory Effort / Characteristics Non-Labored Respiratory Depth Normal Respiratory Pattern Blood Pressure 117/84 Blood Pressure [Right Arm] 117/84 Blood Pressure Mean 92 Blood Pressure Mean [Right Arm] 95 Pulse Oximetry 97 Oxygen Delivery Method Room Air Sepsis Recent Fever Within 48 Hours Sepsis New/Unexplained Change in Mental Status Sepsis Action Taken by Nursing 10/24/19 10:45 10/24/19 11:00 10/24/19 11:01 Temperature Temperature Source Pulse Rate 105 H 102 H 102 H Pulse Rate [Finger] Respiratory Rate 18 18 19 Respiratory Effort / Characteristics Respiratory Depth Respiratory Pattern Blood Pressure 130/90 Blood Pressure [Right Arm] Blood Pressure Mean 109 Blood Pressure Mean [Right Arm] Pulse Oximetry 97 Oxygen Delivery Method Sepsis Recent Fever Within 48 Hours Sepsis New/Unexplained Change in Mental Status Sepsis Action Taken by Nursing 10/24/19 11:15 10/24/19 11:30 10/24/19 11:45 Temperature Temperature Source Pulse Rate 110 H 107 H 103 H Pulse Rate [Finger] Respiratory Rate 21 17 15 Respiratory Effort / Characteristics Respiratory Depth Respiratory Pattern Blood Pressure 121/88 Blood Pressure [Right Arm] Blood Pressure Mean 93 Blood Pressure Mean [Right Arm] Pulse Oximetry 96 97 96 Oxygen Delivery Method Sepsis Recent Fever Within 48 Hours Sepsis New/Unexplained Change in Mental Status Sepsis Action Taken by Nursing 10/24/19 12:00 10/24/19 12:01 10/24/19 12:30 Temperature Temperature Source Pulse Rate 100 H 96 H 101 H Pulse Rate [Finger] Respiratory Rate 14 14 14 Respiratory Effort / Characteristics Respiratory Depth Respiratory Pattern Blood Pressure 122/86 122/84 Blood Pressure [Right Arm] Blood Pressure Mean 98 96 Blood Pressure Mean [Right Arm] Pulse Oximetry 97 96 96 Oxygen Delivery Method Sepsis Recent Fever Within 48 Hours Sepsis New/Unexplained Change in Mental Status Sepsis Action Taken by Nursing 10/24/19 13:00 10/24/19 17:34 Temperature Temperature Source Pulse Rate 101 H Pulse Rate [Finger] 117 H Respiratory Rate 17 20 Respiratory Effort / Characteristics Non-Labored Spontaneous Respiratory Depth Normal Respiratory Pattern Regular Blood Pressure 118/81 Blood Pressure [Right Arm] 148/100 H Blood Pressure Mean 93 Blood Pressure Mean [Right Arm] 116 Pulse Oximetry 96 Oxygen Delivery Method Sepsis Recent Fever Within 48 Hours Sepsis New/Unexplained Change in Mental Status Sepsis Action Taken by Skilled Nursing Medications Current Medication List: was personally reviewed by me Laboratory Data Attestation: I reviewed the patient's lab results. Result diagrams: 10/24/19 10:40 10/24/19 10:40 Lab Results 10/24/19 10/24/19 10/24/19 Range/Units 10:40 10:40 10:40 WBC 7.57 (4.8-10.8) K/uL RBC 3.42 L (4.2-5.4) M/uL Hgb 8.7 L (12.0-16.0) g/dL Hct 28.6 L (37-47) % MCV 83.6 (80-100) fL MCH 25.4 (25-34) pg MCHC 30.4 L (32-36) g/dL RDW Std Deviation 56.7 H (36.4-46.3) fL RDW Coeff of Lisa 18.7 H (11.5-14.5) % Plt Count 403 H (130-400) K/uL MPV 10.4 (7.4-10.4) fL Immature Gran % (Auto) 0.3 % Neut % (Auto) 71.2 % Lymph % (Auto) 13.9 % [place] % (Auto) 9.8 % Eos % (Auto) 3.6 % Baso % (Auto) 1.2 % Immature Gran # (Auto) 0.02 (0.00-0.02) K/uL Neut # (Auto) 5.40 (1.4-6.5) K/uL Lymph # (Auto) 1.05 L (1.2-3.4) K/uL [place] # (Auto) 0.74 H (0.11-0.59) K/uL Eos # (Auto) 0.27 (0-0.5) K/uL Baso # (Auto) 0.09 (0-0.2) K/uL Absolute Nucleated RBC 0.27 H (0-0) K/uL Nucleated RBC % (auto) 3.6 % Hypochromasia Present PT 10.8 (9.0-12.0) Seconds INR 1.0 (0.9-1.1) APTT 29.4 (21.0-31.0) Seconds PTT Ratio 1.1 Sodium 138 (136-145) mmol/L Potassium 3.8 (3.5-5.1) mmol/L Chloride 110 H (98-107) mmol/L Carbon Dioxide 23 (21-32) mmol/L Anion Gap 5.0 (3-11) BUN 8 (7-18) mg/dl Creatinine 0.58 L (0.6-1.2) mg/dl Est Cr Clr Drug Dosing 100.2 ml/min Est GFR ( Amer) 124.6 Est GFR (Non-Af Amer) 107.5 BUN/Creatinine Ratio 13.7 (10-20) Glucose 84 (70-99) mg/dl Calcium 8.4 L (8.5-10.1) mg/dl Total Bilirubin 0.4 (0.2-1) mg/dl AST 23 (15-37) U/L ALT 18 (12-78) U/L Alkaline Phosphatase 124 H (45-117) U/L Troponin I 0.056 H* (0-0.045) ng/ml Total Protein 6.5 (6.4-8.2) gm/dl Albumin 2.7 L (3.4-5.0) gm/dl Globulin 3.8 (2.5-4.0) gm/dl Albumin/Globulin Ratio 0.7 L (0.9-2) Lipase 86 (73-393) U/L Procalcitonin (0-0.5) ng/ml Salicylates (2.8-20) mg/dl Acetaminophen (10-30) ug/ml Ethyl Alcohol mg/dL (0-3) mg/dl 10/24/19 10/24/19 10/24/19 Range/Units 10:40 17:09 17:09 WBC (4.8-10.8) K/uL RBC (4.2-5.4) M/uL Hgb (12.0-16.0) g/dL Hct (37-47) % MCV (80-100) fL MCH (25-34) pg MCHC (32-36) g/dL RDW Std Deviation (36.4-46.3) fL RDW Coeff of Lisa (11.5-14.5) % Plt Count (130-400) K/uL MPV (7.4-10.4) fL Immature Gran % (Auto) % Neut % (Auto) % Lymph % (Auto) % [place] % (Auto) % Eos % (Auto) % Baso % (Auto) % Immature Gran # (Auto) (0.00-0.02) K/uL Neut # (Auto) (1.4-6.5) K/uL Lymph # (Auto) (1.2-3.4) K/uL [place] # (Auto) (0.11-0.59) K/uL Eos # (Auto) (0-0.5) K/uL Baso # (Auto) (0-0.2) K/uL Absolute Nucleated RBC (0-0) K/uL Nucleated RBC % (auto) % Hypochromasia PT (9.0-12.0) Seconds INR (0.9-1.1) APTT (21.0-31.0) Seconds PTT Ratio Sodium (136-145) mmol/L Potassium (3.5-5.1) mmol/L Chloride (98-107) mmol/L Carbon Dioxide (21-32) mmol/L Anion Gap (3-11) BUN (7-18) mg/dl Creatinine (0.6-1.2) mg/dl Est Cr Clr Drug Dosing ml/min Est GFR ( Amer) Est GFR (Non-Af Amer) BUN/Creatinine Ratio (10-20) Glucose (70-99) mg/dl Calcium (8.5-10.1) mg/dl Total Bilirubin (0.2-1) mg/dl AST (15-37) U/L ALT (12-78) U/L Alkaline Phosphatase (45-117) U/L Troponin I 0.049 H* (0-0.045) ng/ml Total Protein (6.4-8.2) gm/dl Albumin (3.4-5.0) gm/dl Globulin (2.5-4.0) gm/dl Albumin/Globulin Ratio (0.9-2) Lipase (73-393) U/L Procalcitonin < 0.05 (0-0.5) ng/ml Salicylates < 1.7 L (2.8-20) mg/dl Acetaminophen < 2 L (10-30) ug/ml Ethyl Alcohol mg/dL (0-3) mg/dl 10/24/19 Range/Units 17:09 WBC (4.8-10.8) K/uL RBC (4.2-5.4) M/uL Hgb (12.0-16.0) g/dL Hct (37-47) % MCV (80-100) fL MCH (25-34) pg MCHC (32-36) g/dL RDW Std Deviation (36.4-46.3) fL RDW Coeff of Lisa (11.5-14.5) % Plt Count (130-400) K/uL MPV (7.4-10.4) fL Immature Gran % (Auto) % Neut % (Auto) % Lymph % (Auto) % [place] % (Auto) % Eos % (Auto) % Baso % (Auto) % Immature Gran # (Auto) (0.00-0.02) K/uL Neut # (Auto) (1.4-6.5) K/uL Lymph # (Auto) (1.2-3.4) K/uL [place] # (Auto) (0.11-0.59) K/uL Eos # (Auto) (0-0.5) K/uL Baso # (Auto) (0-0.2) K/uL Absolute Nucleated RBC (0-0) K/uL Nucleated RBC % (auto) % Hypochromasia PT (9.0-12.0) Seconds INR (0.9-1.1) APTT (21.0-31.0) Seconds PTT Ratio Sodium (136-145) mmol/L Potassium (3.5-5.1) mmol/L Chloride (98-107) mmol/L Carbon Dioxide (21-32) mmol/L Anion Gap (3-11) BUN (7-18) mg/dl Creatinine (0.6-1.2) mg/dl Est Cr Clr Drug Dosing ml/min Est GFR ( Amer) Est GFR (Non-Af Amer) BUN/Creatinine Ratio (10-20) Glucose (70-99) mg/dl Calcium (8.5-10.1) mg/dl Total Bilirubin (0.2-1) mg/dl AST (15-37) U/L ALT (12-78) U/L Alkaline Phosphatase (45-117) U/L Troponin I (0-0.045) ng/ml Total Protein (6.4-8.2) gm/dl Albumin (3.4-5.0) gm/dl Globulin (2.5-4.0) gm/dl Albumin/Globulin Ratio (0.9-2) Lipase (73-393) U/L Procalcitonin (0-0.5) ng/ml Salicylates (2.8-20) mg/dl Acetaminophen (10-30) ug/ml Ethyl Alcohol mg/dL < 3.0 (0-3) mg/dl Administered Medications Discontinued Medications Diphenhydramine HCl (Benadryl) 12.5 mg IV NOW STA Stop: 10/24/19 13:40 Last Admin: 10/24/19 14:50 Dose: Not Given Documented by: [id number] Sodium Chloride (Nss 1000ml) 1,000 mls @ 999 mls/hr IV .Q1H1M DENIS Stop: 10/24/19 11:15 Last Infusion: 10/24/19 12:16 Dose: 0 mls/hr Documented by: [id number] Admin: 10/24/19 11:15 Dose: 999 mls/hr Documented by: [id number] Prochlorperazine (Compazine) 2 mls @ 1 mls/min IV ONE ONE Stop: 10/24/19 13:40 Last Admin: 10/24/19 14:50 Dose: Not Given Documented by: [id number] Metoclopramide HCl (Reglan) 10 mg IV NOW STA Stop: 10/24/19 17:05 Last Admin: 10/24/19 17:32 Dose: 10 mg Documented by: [id number] Morphine Sulfate (Morphine Sulfate) 4 mg IV NOW STA Stop: 10/24/19 10:15 Last Admin: 10/24/19 11:16 Dose: 4 mg Documented by: [id number] Ondansetron HCl (Zofran) 4 mg IV NOW STA Stop: 10/24/19 10:15 Last Admin: 10/24/19 11:16 Dose: 4 mg Documented by: [id number] Discharge Plan Visit Data Chief Complaint: Rib Injury/Pain Stated Complaint: R sided rib pain ED Provider: Stef Robison Discharge Problem: Nausea & vomiting, Anemia, Chest pain, Suicidal ideation, Fall, Left forearm pain Patient Disposition: Home - Self-Care Condition: Fair Discharge Instructions Krames/Other Patient Handouts: Anemia, Nausea Vomit Control Activity Restrictions/Additional Instructions: Please return to the emergency department if you have worsening or recurrent symptoms not amenable to at-home treatment. Please call for a follow-up appointment with her primary care physician. Please take your medications as prescribed. If you have other concerns and/or complaints please feel free to also call your primary care physician's office or return the ED for further evaluation, management, and treatment. Take your medications as prescribed. To help with your reflux, abdominal pain, or upset stomach type symptoms; please consider smaller more frequent meals. A probiotic or yogurt may also help. Please do not lay down after eating. Consider avoiding spicy, citrus, peppermint, chocolate. Consider taking a PPI like Nexium 20 mg daily or an antihistamine like Pepcid 20 mg twice daily. Sitting upright may help improve your symptoms also. Do not lay down after eating or drinking. You may also try things like Tums or Maalox. NSAIDs like ibuprofen, Motrin, Aleve, naproxen, Mobic may cause worsening upset stomach. Tylenol may be better for fever/pain. Please consider a clear liquid diet next 24-48 hours. You may advance as tolerated. If you are not taking solid foods, please ensure your liquids have some calories for nutrition. You have been examined and treated today on an emergency basis only. This is not a substitute for, or an effort to provide, complete comprehensive medical care. It is impossible to recognize and treat all injuries or illnesses in a single emergency department visit. It is therefore important that you follow up closely with [facility], your PCP, and/or your specialist(s). Call as soon as possible for an appointment. Thank you for your time and consideration. I look forward to speaking with you again soon. Please don't hesitate to call us if you have any questions. Forms Stand Alone Forms: My [facility], Virtual Emergency Department, Important Visit Information Prescriptions Prescriptions: New ondansetron 4 mg tablet,disintegrating 4 mg PO Q12H PRN (Reason: nausea and vomiting) 3 Days Qty: 9 RF: 0 promethazine 25 mg suppository 25 mg MA Q6H PRN (Reason: nausea) Qty: 12 RF: 0 No Action trazodone 50 mg Tablet 50 mg PO HS PRN (Reason: Sleep) RF: 0 levetiracetam [Keppra] 500 mg tablet 1,500 mg PO BID RF: 0 gabapentin 400 mg capsule 400 mg PO TID RF: 0 lorazepam [Ativan] 1 mg tablet 1 mg PO Q8H PRN (Reason: Anxiety) RF: 0 Forteo 20 mcg/dose - 600 mcg/2.4 mL Pen Injector 20 mcg SUBCUT DAILY RF: 0 furosemide 40 mg tablet 40 mg PO QAM RF: 0 montelukast 10 mg tablet 10 mg PO DAILY RF: 0 oxycodone 5 mg tablet 5 mg PO QID PRN (Reason: Pain) RF: 0 cyclobenzaprine 5 mg tablet 5 mg PO TID PRN (Reason: Muscle Spasm) RF: 0 pantoprazole [Protonix] 40 mg tablet,delayed release (DR/EC) 40 mg PO BID RF: 0 promethazine 25 mg tablet 25 mg PO TIDM PRN (Reason: Nausea And Vomiting) RF: 0 potassium chloride [Klor-Con M10] 10 mEq tablet,ER particles/crystals 20 meq PO QAM RF: 0 cholecalciferol (vitamin D3) [Vitamin D3] 125 mcg (5,000 unit) Tablet 5,000 unit PO QAM RF: 0 fexofenadine [Maame Allergy] 180 mg Tablet 180 mg PO DAILY RF: 0 Referrals Referrals: Jaspal Bae MD [Primary Care Provider] - Discharge Problem: Nausea & vomiting Qualifiers: Vomiting type: unspecified Vomiting Intractability: non-intractable Qualified Code(s): R11.2 - Nausea with vomiting, unspecified Anemia Qualifiers: Anemia type: unspecified type Qualified Code(s): D64.9 - Anemia, unspecified Chest pain Qualifiers: Chest pain type: unspecified Qualified Code(s): R07.9 - Chest pain, unspecified Fall Qualifiers: Encounter type: initial encounter Qualified Code(s): W19.XXXA - Unspecified fall, initial encounter
[2019-10-24] MEDS ORDERED: ONDANSETRON INJ 2 MG/ML 2 ML VIAL IV STA (10:14)
[2019-10-24] MEDS ORDERED: MoRPHine SULFATE 4 MG/ML 1 ML CARP\\VIAL IV STA (10:14)
[2019-10-24] MEDS ORDERED: SODIUM CHLORIDE 0.9% 1000ML 1,000 ML IV SCH (10:15)
[2019-10-24 11:07] LABS: Basophils # (auto) 0.09 K/uL (0-0.2); Basophils % (auto) 1.2 %; Eosinophils # (auto) 0.27 K/uL (0-0.5); Eosinophils % (auto) 3.6 %; Hematocrit (blood only) 28.6 % (37-47); Hemoglobin 8.7 g/dL (12.0-16.0); Immature Granulocytes # (auto) 0.02 K/uL (0.00-0.02); Immature Granulocytes % (auto) 0.3 %; Lymphocytes # (auto) 1.05 K/uL (1.2-3.4); Lymphocytes % (auto) 13.9 %; Mean Corpuscular Hemoglobin 25.4 pg (25-34); Mean Corpuscular Hgb Conc 30.4 g/dL (32-36); Mean Corpuscular Volume 83.6 fL (80-100); Mean Platelet Volume 10.4 fL (7.4-10.4); Monocytes # (auto) 0.74 K/uL (0.11-0.59); Monocytes % (auto) 9.8 %; Neutrophils % (auto) 71.2 %; Nucleated RBC # (auto) 0.27 K/uL (0-0); Nucleated RBC % (auto) 3.6 %; Platelet Count 403 K/uL (130-400); RDW Coefficient of Variation 18.7 % (11.5-14.5); RDW Standard Deviation 56.7 fL (36.4-46.3); Red Blood Count 3.42 M/uL (4.2-5.4); White Blood Count 7.57 K/uL (4.8-10.8)
[2019-10-24 11:19] LABS: Partial Thromboplastin Ratio 1.1; Partial Thromboplastin Time 29.4 Seconds (21.0-31.0); Prothrombin Time 10.8 Seconds (9.0-12.0)
[2019-10-24 11:23] LABS: Albumin Level 2.7 gm/dl (3.4-5.0); BUN Creatinine Ratio 13.7 (10-20); Calcium 8.4 mg/dl (8.5-10.1); Creatinine Clr Calc Pharmacy 100.2 ml/min; Est GFR (African American) 124.6; Est GFR (Non-African American) 107.5; Potassium 3.8 mmol/L (3.5-5.1)
[2019-10-24 11:28] LABS: Hypochromasia Present
[2019-10-24 11:32] LABS: Albumin Globulin Ratio 0.7 (0.9-2); Bilirubin,Total 0.4 mg/dl (0.2-1); Globulin 3.8 gm/dl (2.5-4.0); Total Protein 6.5 gm/dl (6.4-8.2); Troponin I 0.056 ng/ml (0-0.045)
[2019-10-24] MEDS ORDERED: PROCHLORPERAZINE 2 ML IV ONE (13:39)
[2019-10-24] MEDS ORDERED: DiphenhydrAMINE HCL 50 MG/ML VIAL IV STA (13:39)
--- NOTE | 2019-10-24 13:41 | XRay Report ---
LEFT FOREARM 2 VIEWS CLINICAL HISTORY: Fall. Left arm injury. FINDINGS: AP and lateral views of the left forearm are correlated with radiograph of the left wrist d ated 09/29/2007. The skeletal structures are osteopenic. There is chronic posttraumatic deformity of t he distal radial metaphysis. No acute fracture is identified in the right forearm. The wrist and elbo w joints are grossly maintained. Soft tissue edema is present around the mid to distal forearm. IMPRESSION: Soft tissue swelling with no radiographic evidence of acute left forearm fracture. Electronically signed by: Geovanny Marcelo M.D. 10/24/2019 1:40 PM
--- NOTE | 2019-10-24 13:45 | XRay Report ---
TWO VIEW CHEST CLINICAL HISTORY: Atypical chest pain. Fall. FINDINGS: AP and lateral chest radiographs are compared to chest x-ray and chest CT dated 09/22/2019. A right internal jugular central venous infusion port is unchanged in position. A chest tube has been removed from previous. The cardiomediastinal silhouette is unremarkable noting mild atherosclerotic calcification of the thoracic aorta. Airspace consolidation is again seen in the left lung base. Ther e is a small left pleural effusion. Atelectasis is noted at the right lung base. There is no pneumoth orax. The skeletal structures are osteopenic. There is chronic posttraumatic deformity and postoperat tato change identified in the right humerus. There are subacute left-sided rib fractures. Skin clips p roject over the left upper quadrant of the abdomen. Cholecystectomy clips are noted in the right uppe r quadrant. IMPRESSION: 1. A chest tube has been removed as compared to previous. No recurrent or residual pneumothorax is id entified. 2. There is a small left pleural effusion, with left basilar opacities which likely represent atelect asis. Correlate clinically for evidence of a superimposed infectious/inflammatory pneumonitis. 3. There are subacute left-sided rib fractures, similar in appearance to previous. ACT 112: Negative or not required by law. Electronically signed by: Geovanny Marcelo M.D. 10/24/2019 1:44 PM
--- NOTE | 2019-10-24 14:39 | Electrocardiogram Report ---
Test Reason : Blood Pressure : / mmHG Vent. Rate : 102 BPM Atrial Rate : 102 BPM P-R Int : 134 ms QRS Dur : 066 ms QT Int : 324 ms P-R-T Axes : 040 021 045 degrees QTc Int : 422 ms Poor data quality, interpretation may be adversely affected Sinus tachycardia Low voltage QRS Borderline ECG When compared with ECG of 22-SEP-2019 20:59, No significant change was found Confirmed by Erickson Hopson ([id number]) on 10/24/2019 2:39:29 PM Referred By: REFERRED SELF Confirmed By:Erickson Hopson
[2019-10-24] MEDS ORDERED: METOCLOPRAMIDE HCL INJ 5 MG/ML 2 ML VIAL IV STA (17:04)
[2019-10-24 17:44] LABS: Acetaminophen < 2 ug/ml (10-30); Salicylate < 1.7 mg/dl (2.8-20)
--- NOTE | 2019-10-24 18:44 | History & Physical Report ---
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 In ED patient remained hemodynamically stable although she did have sinus tachycardia with rates in the low 100s. Lab work notable for H&H 8.7 and 28.6, platelet 403, K3.8, BUN 8, creatinine 0.58, glucose 84, trop 0.056, albumin 2.7, pro Mason WNL, alcohol and tox screen negative. Chest x-ray reveals no recurrent residual pneumothorax, small left pleural effusion with left basilar opacity likely representing atelectasis, subacute left-sided rib fractures similar to in appearance to prior imaging. In ED she did have repeat troponin which decreased to 0.048. She does have prior history of elevated troponin. In ED she received IVF, Compazine, morphine and Phenergan with minimal relief. Chest pain likely coming from subacute rib fracture, staple site and atelectasis admit to tele cycle troponin obtain echocardiogram in am. Place Bactroban 2 staple sites on left lateral chest wall Consult wound nurse and obtain wound culture pt with multiple antibiotic allergies and does not appear to be an acute cellulitis treat topically for now (3) Atelectasis: Encourage incentive spirometry Saturating well on room air (4) Ribs, multiple fractures: Status post fall 09/21 with left-sided rib fractures 6 through 10, seventh rib fracture in 2 places Chest pain likely refractory from rib fractures and atelectasis Encourage incentive spirometry Oxycodone PRN for pain Avoid NSAIDs in setting of bleeding diathesis (5) Suicidal ideation: Patient with report of suicidal ideation with multiple plans She feels as if she is a burden and no longer wants to be dependent on everybody Plans include walking out in front of traffic, injecting air bubbles into Mediport, or getting lost in the [place] on purpose Consult psychiatry -once medically cleared likely to require inpatient psych admission Suicide precautions, one-to-one (6) Ambulatory dysfunction: Patient with report of frequent falls Consult PT OT (7) Anemia: H&H 8.7 and 28.6 Normocytic normochromic Her hemoglobin appears to fluctuate Likely decreased in setting of recent trauma with rib fractures and hemothorax Monitor H&H closely, signs or symptoms of active bleeding (8) Seizure disorder: Last known seizure many years ago, although what brought her to ED was metallic taste in mouth that was going up to her nose which she states "precedes a seizure" She has not been taking her gabapentin or Keppra for approximately 2 weeks She has actually stopped all of her medications for the past 2 weeks Will resume gabapentin and Keppra seizure precautions (9) Von Willebrand disease: no s/sx of bleeding at this time monitor (10) Alcohol abuse: Awss protocol prn ativan daily folic acid and thiamine (11) Blindness: 2/2 to tobramycin pt will need verbal cueing (12) Depression: Psychiatry consulted Currently not taking any antidepressants Mood unstable given suicidal ideation Plan as above (13) DVT prophylaxis: SCD/TEDS No chemical prophylaxis in setting of von Willebrand's disease Disposition: Admit to telemetry Follow-up: PCP Dr Bae upon discharge Patient was seen and examined in collaboration with Dr. Katz, please see addendum History of Present Illness Chief Complaint: Metallic taste in mouth and left-sided chest pain. 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 Of significance patient was recently seen in [facility] ED 09/22/2019 after sustaining a fall out of bed with associated alcohol use. Subsequently she suffered multiple left-sided rib fractures 6 through 10, seventh fractured in 2 places, large left-sided pneumothorax, small hemothorax requiring left chest tube placement with 50 to 60 mL of blood withdrawn. Given the trauma event she was then transferred to [facility] for further care. I do not have access to those records at this time. She comes to see us today complaining of left-sided chest wall pain. Pain is constant, waxes and wanes in severity, worsened with deep inspiration, improved with rest and guarding, dizziness, frequent falls, metallic taste in mouth that sometimes proceeds seizures. She still has chito in place where prior chest tube was placed as well as dressing. She is unsure when stable or to come out as she states, "I could not read my discharge paperwork I am blind." She does elicit to frequent falls over the past several weeks, but does not attribute this to her blindness. Also complains of dizziness, instability, nausea, shortness with exertion, intermittent abdominal pain, off and on diarrhea depending on diet and generalized malaise. She currently denies any fever, chills, sweats, syncope, palpitations, hemoptysis, cough, hematemesis, melena, medic easier, dysuria, increased urgency or frequency with urination. She also states that she is, "sick of being a burden." She is mostly dependent on family and is upset by this. She states if she could hurt herself she would. She does have active suicidal ideations and has a plan in place including walking out in front of traffic, injecting air into her Mediport, or climbing up to a mountain and getting lost on purpose. She denies any homicidal ideation. In ED patient remained hemodynamically stable although she did have sinus tachycardia with rates in the low 100s. Lab work notable for H&H 8.7 and 28.6, platelet 403, K3.8, BUN 8, creatinine 0.58, glucose 84, trop 0.056, albumin 2.7, pro Mason WNL, alcohol and tox screen negative. Chest x-ray reveals no recurrent residual pneumothorax, small left pleural effusion with left basilar opacity likely representing atelectasis, subacute left-sided rib fractures similar to in appearance to prior imaging. In ED she did have repeat troponin which decreased to 0.048. She does have prior history of elevated troponin. In ED she received IVF, Compazine, morphine and Phenergan with minimal relief. Allergies Allergy/AdvReac Type Severity Reaction Status Date / Time iron dextran complex Allergy Severe SOB, heart Verified 09/22/19 22:58 racing (see comments) cat dander Allergy Intermediate eye Verified 09/22/19 22:58 watering ceftriaxone Allergy Intermediate Hives Verified 09/22/19 22:58 ciprofloxacin Allergy Intermediate lips Verified 09/22/19 22:58 burning/peeling doxycycline Allergy Intermediate hives, Verified 09/22/19 22:58 vomiting latex Allergy Intermediate mouth Verified 09/22/19 22:58 hives/burning sensation Penicillins Allergy Intermediate Hives Verified 09/22/19 22:58 Quinolones Allergy Intermediate Hives Verified 09/22/19 22:58 Sulfa (Sulfonamide Allergy Intermediate hives Verified 09/22/19 22:58 Antibiotics) Aminoglycosides Allergy Unknown unknown Verified 09/22/19 22:58 reaction tobramycin AdvReac Severe blindness Verified 09/22/19 22:58 lactose AdvReac Intermediate nausea, GI Verified 09/22/19 22:58 upset citalopram AdvReac Mild restlessnes Verified 09/22/19 22:58 s Ferric Oxide Allergy Intermediate hives (see Uncoded 09/22/19 22:58 comments) Home Medications Home Medications Medication Instructions Recorded Confirmed Type cyclobenzaprine 5 mg PO TID PRN 01/29/18 10/24/19 History pantoprazole [Protonix] 40 mg PO BID 01/29/18 10/24/19 History potassium chloride [Klor-Con M10] 20 meq PO QAM 01/29/18 10/24/19 History promethazine 25 mg PO TIDM PRN 01/29/18 10/24/19 History levetiracetam [Keppra] 1,500 mg PO BID 07/07/18 10/24/19 History trazodone 50 mg PO HS PRN 07/07/18 10/24/19 History gabapentin 400 mg PO TID 11/18/18 10/24/19 History lorazepam [Ativan] 1 mg PO Q8H PRN 11/18/18 10/24/19 History Forteo 20 mcg SUBCUT DAILY 03/18/19 10/24/19 History cholecalciferol (vitamin D3) 5,000 unit PO QAM 05/22/19 10/24/19 History [Vitamin D3] fexofenadine [Maame Allergy] 180 mg PO DAILY 09/22/19 10/24/19 History furosemide 40 mg PO QAM 10/24/19 10/24/19 History montelukast 10 mg PO DAILY 10/24/19 10/24/19 History ondansetron 4 mg PO Q12H PRN 3 Days #9 tab 10/24/19 Rx oxycodone 5 mg PO QID PRN 10/24/19 10/24/19 History promethazine 25 mg MA Q6H PRN #12 ea 10/24/19 Rx Past Med/Surg History Medical History Anemia hx of blood transfusion (post-operatively 10/2018) Anxiety 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 Lanza Surgical History H/O foot surgery RT HEEL SURGERY X 2 (HARDWARE INTACT) TOE CORRECTION X 3 (PINS INTACT ON RT FOOT) H/O shoulder surgery RT HUMERUS FX REPAIRED (HARDWARE INTACT) H/O wisdom tooth extraction H/O wrist surgery LEFT WRIST X 2 SURGERIES History of cholecystectomy History of colonoscopy History of esophagogastroduodenoscopy (EGD) History of gastrectomy secondary to PUD (OVER 10 YEARS AGO) History of hand surgery LEFT HAND FINGER REPAIR History of hysterectomy (Acute) History of vascular access device MEDIPORT INTACT Family History Father Diabetes Mother Von Willebrand disease Grandmother (Paternal) Family hx of colon cancer Social History Preferred Language: Croatian Communication Ability: Effective Manager Business Systems Required: No Beliefs That Will Affect Care: None marital status: Current Living Situation: Alone current occupational status: disabled Other Information That Helps Us Care for You: No Feels Safe at Home: Yes Safety Concerns: Feels Safe At This Time Smoking Status: Never smoker Do You Dip or Chew Tobacco: No ; Second Hand Exposure: No ; Tobacco Cessation Education Requested by Patient: No Hx Alcohol Use: Yes Alcohol type: wine Hx Substance Use: No Review of Systems Review of Systems: All systems reviewed & are unremarkable except as noted in HPI & below Physical Exam Physical Exam: Constitutional: Thin, petite, female, with sunglasses in place, vitals as above, NAD, sitting up in bed, answers questions appropriately Head: Normocephalic, Atraumatic Eyes: Refuses to take sunglasses off to examine ENMT: external ear and nose normal, oropharynx normal Neck: trachea midline, no thyromegaly normal visual inspection Respiratory: normal respiratory effort, pain with inspiration, lungs clear to auscultation, no wheeze, rales, rhonchi. Normal insp/exp effort, no accessory muscle use Cardiovascular: RRR, no murmur, no edema Vessels: no JVD or carotid bruit Chest: Left lateral and posterior chest wall dressing in place, left lateral chest wall chito intact with mild surrounding erythema and purulence, pain to palpation left lateral chest wall Abdomen: normal bowel sounds, soft, nontender, no hepatosplenomegaly Musculoskeletal: no cyanosis or clubbing, extremities motor strength 5/5 Skin: no rashes, warm and dry normal turgor Neurologic: PERRL, EOMI, accommodation nl, no face palsy, no dysarthria CN's II-XI intact bilaterally and moves all extremities Psychiatric: A+Ox3, euthymic affect Lymphatic: no cervical or axillary lymphadenopathy : deferred Results & Data Results & Data ([facility]) Vital Signs (Past 12 Hours) Vital Signs Temp Pulse Pulse Resp BP BP Pulse Ox 10/24/19 18:31 110 H 19 132/85 10/24/19 18:30 109 H 12 10/24/19 18:15 116 H 17 10/24/19 18:00 110 H 20 139/100 10/24/19 17:45 115 H 18 10/24/19 17:34 117 H 20 148/100 H 10/24/19 17:30 115 H 16 148/100 H 10/24/19 17:21 122 H 20 10/24/19 17:19 138/107 H 10/24/19 15:45 99 10/24/19 15:31 98 10/24/19 15:30 141/100 H 96 10/24/19 15:15 98 10/24/19 15:00 127/101 H 97 10/24/19 14:45 97 10/24/19 14:40 97 10/24/19 14:31 149/88 H 10/24/19 14:30 101 H 20 122/78 96 10/24/19 14:02 92 10/24/19 14:00 127/96 97 10/24/19 13:58 150/99 H 10/24/19 13:30 101 H 20 118/81 96 10/24/19 13:00 101 H 17 118/81 96 10/24/19 12:30 101 H 14 122/84 96 10/24/19 12:15 101 H 17 10/24/19 12:01 96 H 14 96 10/24/19 12:00 100 H 14 122/86 97 10/24/19 11:45 103 H 15 96 10/24/19 11:30 107 H 17 121/88 97 10/24/19 11:15 110 H 21 96 10/24/19 11:01 102 H 19 10/24/19 11:00 102 H 18 130/90 97 10/24/19 10:45 105 H 18 10/24/19 10:32 117/84 10/24/19 10:31 107 H 16 117/84 97 10/24/19 10:30 114 H 16 10/24/19 10:15 114 H 23 10/24/19 10:00 117 H 16 10/24/19 09:45 102 H 16 10/24/19 09:36 120 H 22 10/24/19 09:34 37.1 C 76 18 142/81 H 99 10/24/19 09:28 117 H 20 142/81 H Laboratory Results Short CBC 10/24/19 10/24/19 10/24/19 Range/Units 10:40 10:40 17:09 WBC 7.57 (4.8-10.8) K/uL Hgb 8.7 L (12.0-16.0) g/dL Hct 28.6 L (37-47) % Plt Count 403 H (130-400) K/uL Troponin I 0.056 H* 0.049 H* (0-0.045) ng/ml BMP 10/24/19 10:40 Sodium 138 Potassium 3.8 Chloride 110 H Carbon Dioxide 23 BUN 8 Creatinine 0.58 L Glucose 84 Calcium 8.4 L Cardiac Enzymes 10/24/19 10/24/19 Range/Units 10:40 17:09 Troponin I 0.056 H* 0.049 H* (0-0.045) ng/ml Liver Function 10/24/19 Range/Units 10:40 Total Bilirubin 0.4 (0.2-1) mg/dl AST 23 (15-37) U/L ALT 18 (12-78) U/L Alkaline Phosphatase 124 H (45-117) U/L Albumin 2.7 L (3.4-5.0) gm/dl Diagnostic Findings CXR: IMPRESSION: 1. A chest tube has been removed as compared to previous. No recurrent or residual pneumothorax is identified. 2. There is a small left pleural effusion, with left basilar opacities which likely represent atelectasis. Correlate clinically for evidence of a superimposed infectious/inflammatory pneumonitis. 3. There are subacute left-sided rib fractures, similar in appearance to previous. Forearm xray: IMPRESSION: Soft tissue swelling with no radiographic evidence of acute left forearm fracture. Medications Administered Discontinued Medications Diphenhydramine HCl (Benadryl) 12.5 mg IV NOW STA Stop: 10/24/19 13:40 Last Admin: 10/24/19 14:50 Dose: Not Given Documented by: [id number] Sodium Chloride (Nss 1000ml) 1,000 mls @ 999 mls/hr IV .Q1H1M DENIS Stop: 10/24/19 11:15 Last Infusion: 10/24/19 12:16 Dose: 0 mls/hr Documented by: [id number] Admin: 10/24/19 11:15 Dose: 999 mls/hr Documented by: [id number] Prochlorperazine (Compazine) 2 mls @ 1 mls/min IV ONE ONE Stop: 10/24/19 13:40 Last Admin: 10/24/19 14:50 Dose: Not Given Documented by: [id number] Metoclopramide HCl (Reglan) 10 mg IV NOW STA Stop: 10/24/19 17:05 Last Admin: 10/24/19 17:32 Dose: 10 mg Documented by: [id number] Morphine Sulfate (Morphine Sulfate) 4 mg IV NOW STA Stop: 10/24/19 10:15 Last Admin: 10/24/19 11:16 Dose: 4 mg Documented by: [id number] Ondansetron HCl (Zofran) 4 mg IV NOW STA Stop: 10/24/19 10:15 Last Admin: 10/24/19 11:16 Dose: 4 mg Documented by: [id number] ECG Rate (beats per minute): 102 Rhythm: sinus tachycardia Comparison ECG Date: from (09/22/19) Change: no significant change Code Status & VTE Plan Code Status Full Code VTE Prophylaxis Plan VTE Prophylaxis will be ordered: Yes Supervising Physician Co-Signing Physician Notes Patient is a 49-year-old female with history of von Willebrand's disease, seizure disorder, legally blind, anxiety, depression, hypoparathyroidism and other medical problems presents with history of left-sided chest pain, pleuritic in nature. Patient had multiple left-sided rib fractures, large left-sided pneumothorax and a small pneumothorax resulting in chest tube placement recently which was removed. Patient still has chito at the site of the chest tube. Also reports having metallic taste which usually she observes prior to having a seizure episode as per patient. Patient states having multiple falls secondary to being blind, also expresses being suicidal as she no longer wants to be dependent on her family members. She also states having a plan to commit suicide. Please review HPI for complete details of presentation. On exam patient is moderately built and nourished, normocephalic atraumatic, lungs are clear to auscultation, S1-S2, no murmur, tachycardia, no pedal edema, chest--chito on left side, tender to palpate, abdomen soft, nontender, normal bowel sounds, grossly no focal neurological deficits, blind in both eyes. Patient is admitted for management of chest pain rule out ACS, suicidal ideation. Chest pain is likely pleuritic in nature secondary to rib fractures. Agree with trending troponins, resting echo, will repeat EKG in the morning. Incentive spirometry ordered. Pain control. Consulted psychiatry for input on suicidal ideation. One-on-one sitter. Suicidal precautions. PT OT prior to discharge for ambulatory dysfunction. Fall precautions. I personally reviewed the record. Patient is interviewed and examined at bedside. Patient's care is coordinated with Freda Perales PA-C. Please refer to the documentation above for details of patient's presentation and for discussion of other issues. (1) Anemia Anemia type: unspecified type Qualified Code(s): D64.9 - Anemia, unspecified (2) Chest pain Chest pain type: unspecified Qualified Code(s): R07.9 - Chest pain, unspecified
[2019-10-24] MEDS ORDERED: MAGNESIUM HYDROXIDE SUSP 30 ML UDC PO PRN (20:05)
[2019-10-24] MEDS ORDERED: ACETAMINOPHEN 325 MG TAB PO PRN (20:05)
[2019-10-24] MEDS ORDERED: ALUMINUM/MAGNESIUM SUSP 30 ML UDC PO PRN (20:05)
[2019-10-24] MEDS ORDERED: POLYETHYLENE (MIRALAX) 17 GM PACK PO PRN (20:05)
[2019-10-24] MEDS ORDERED: LORazepam 1 MG TAB PO PRN (20:05)
[2019-10-24] MEDS: ONDANSETRON INJ 2 MG/ML 2 ML VIAL IV PRN (20:18)
[2019-10-24] MEDS ORDERED: GABAPENTIN 400 MG CAP PO SCH (21:00)
[2019-10-24] MEDS: MUPIROCIN 2% OINT 22 GM TUBE EXT SCH (22:47)
[2019-10-24] MEDS: FOLIC ACID 1 MG TAB PO SCH (22:47)
[2019-10-24] MEDS: THIAMINE HCL 100 MG TAB PO SCH (22:48)
[2019-10-24] MEDS: PANTOprazole 40 MG TAB PO SCH (22:48)
[2019-10-24] MEDS: levETIRAcetam 500 MG TAB PO SCH (22:48)
[2019-10-24] MEDS ORDERED: MoRPHine SULFATE 2 MG/ML CARP IV PRN (23:26)
[2019-10-24] MEDS ORDERED: PROMETHAZINE HCL 12.5 MG in SODIUM CHLORIDE 0.9% 50 ML IV PRN (23:26)
[2019-10-24] MEDS ORDERED: PANTOprazole 40 MG in SYRINGE 0 ML IV STA (23:40)
[2019-10-24] MEDS ORDERED: LORazepam 1 MG/2 ML VIAL IV STA (23:51)
[2019-10-24] MEDS ORDERED: LORazepam 1 MG/2 ML VIAL IV PRN (23:52)
[2019-10-24] MEDS ORDERED: LORazepam 3 MG/6 ML VIAL IV PRN (23:52)
[2019-10-24] MEDS ORDERED: ATIVAN IV ALCOHOL WITHDRAWL IV PRN (23:52)
[2019-10-24] MEDS ORDERED: LORazepam 2 MG/4 ML VIAL ONE (23:58)
[2019-10-25] MEDS: LORazepam 2 MG/4 ML VIAL IV PRN ×2 (00:26→00:48)
[2019-10-25] MEDS ORDERED: LORazepam 2 MG/ML VIAL (IM USE) IM STA ×2 (00:32→00:51)
[2019-10-25 02:39] LABS: Hematocrit (blood only) 25.2 % (37-47); Hemoglobin 7.8 g/dL (12.0-16.0); Mean Corpuscular Hemoglobin 25.9 pg (25-34); Mean Corpuscular Volume 83.7 fL (80-100); Mean Platelet Volume 10.3 fL (7.4-10.4); Platelet Count 334 K/uL (130-400); RDW Coefficient of Variation 18.8 % (11.5-14.5); RDW Standard Deviation 56.4 fL (36.4-46.3); Red Blood Count 3.01 M/uL (4.2-5.4); White Blood Count 5.68 K/uL (4.8-10.8)
[2019-10-25 03:00] LABS: BUN Creatinine Ratio 11.4 (10-20); Calcium 7.8 mg/dl (8.5-10.1); Creatinine Clr Calc Pharmacy 109.7 ml/min; Est GFR (African American) 128.3; Est GFR (Non-African American) 110.7; Potassium 3.4 mmol/L (3.5-5.1)
[2019-10-25 03:04] LABS: Troponin I 0.045 ng/ml (0-0.045)
[2019-10-25] MEDS: GABAPENTIN 400 MG CAP PO SCH ×4 (04:23→20:51)
[2019-10-25] MEDS: MoRPHine SULFATE 2 MG/ML CARP IV PRN ×2 (06:44→13:06)
[2019-10-25] MEDS: HEPARIN 100 UNIT/ML 5ML FLUSH FLUSH PRN ×2 (07:50→14:39)
[2019-10-25] MEDS: ONDANSETRON INJ 2 MG/ML 2 ML VIAL IV PRN (07:50)
[2019-10-25 08:15] LABS: Amphetamines+Metham, Urine Neg (Neg); Barbiturates, Urine Neg (Neg); Benzodiazepine, Urine Neg (Neg); Cocaine, Urine Neg (Neg); MDMA (Ecstacy), Urine Neg (Neg); Methadone, Urine Neg (Neg); Opiate, Urine Pos (Neg); Phencyclidine, Urine Neg (Neg)
[2019-10-25] MEDS: OXYCODONE HCL IR 5 MG TAB (IMMEDIATE RELEASE) PO PRN ×2 (10:02→16:26)
--- NOTE | 2019-10-25 10:37 | Electrocardiogram Report ---
Test Reason : Blood Pressure : / mmHG Vent. Rate : 107 BPM Atrial Rate : 107 BPM P-R Int : 140 ms QRS Dur : 058 ms QT Int : 330 ms P-R-T Axes : 045 044 043 degrees QTc Int : 440 ms Poor data quality, interpretation may be adversely affected Sinus tachycardia Low voltage QRS Borderline ECG When compared with ECG of 24-OCT-2019 10:31, No significant change was found Confirmed by Erickson Hopson ([id number]) on 10/25/2019 10:37:51 AM Referred By: REFERRED SELF Confirmed By:Erickson Hopson
[2019-10-25] MEDS ORDERED: PANTOprazole 40 MG in SYRINGE 0 ML IV SCH (11:00)
[2019-10-25] MEDS: POTASSIUM CHLORIDE / WTR 10 MEQ/100 ML PLCT IV SCH ×3 (11:21→13:33)
[2019-10-25] MEDS: FOLIC ACID 1 MG TAB PO SCH (12:12)
[2019-10-25] MEDS: THIAMINE HCL 100 MG TAB PO SCH (12:13)
[2019-10-25] MEDS: levETIRAcetam 500 MG TAB PO SCH ×2 (12:13→20:51)
[2019-10-25] MEDS: PANTOprazole 40 MG TAB PO SCH ×2 (12:13→20:51)
[2019-10-25] MEDS: MUPIROCIN 2% OINT 22 GM TUBE EXT SCH ×2 (12:14→20:50)
--- NOTE | 2019-10-25 14:15 | Psychiatric Consultation ---
Date of Consultation October 25, 2019 Impression / Recommendations Impression Dr. Matilde Delgado was directly involved in review and discussion of the patient's case and participated in medical decision making regarding treatment recommendations. RECOMMENDATIONS: 10/24 - Pt does admit to depressive symptoms for greater than 6 months, and would benefit from psychiatric treatment. She is willing to consider therapy as well as medication options to target mood. - Pt does endorse suicidal ideation for the past 2 months, verbalizing numerous plans to: cut herself and bleed out (heightened concern due to clotting disorder), injecting bubbles into her Mediport, or "getting lost in the [place]". It is patient's perception that she has limited supports and states "I definitely could do it." 302 petitioning statement initiated if necessary; however, patient is willing to consider psychiatric admission or allowing attempt to safety plan. Will continue to follow patient during her medical admission to determine ultimate recommendation at time of medical clearance. - Will attempt to gather collateral information from patient's supports to determine if they have safety concerns related to patient's presentation - Due to reported nausea will refrain from initiating new medication immediately; however, patient verbalizes willingness to trial antidepressant medication. When able to tolerate trial of a new medication, would consider mirtazapine ODT 7.5mg qHS with titration as tolerated. Pt's diagnosis of Von Willebrand disease increases concern for bleed risk associated with antidepressant medications. Research shows non-SSRI options are recommended in these cases, and patient may benefit from the ODT option due to frequent episodes of nausea. Would suggest slow titration and close observation given patient's medical concerns; in particular we will need to watch for over- sedation, as patient already has history of falls. - Will attempt to initiate referrals for outpatient psychiatric treatment. Reference: Ashley Vega. Influence of antidepressants on hemostasis. Dialogues Clin Neurosci. 2007;9(1):47-59. (1) Suicidal ideation: (2) Von Willebrand disease: (3) Seizure disorder: Risk Factors Assessment Do You Have Access To A Gun?: No Protective Factors Assessment Employed: No Psych History Identifying Data 49-year-old female admitted medically on 10/24/2019 for medical work-up related to chest pain. Pt verbalized SI in the ED with multiple plans. Psychiatric consultation requested to evaluate patient for suicidality. Chief Complaint "So much better than yesterday." History of Present Illness Hiwot Palomino is a 49-year-old female admitted medically on 10/24/2019 after presenting to the ED for work-up for chest pain. While in the ED, the patient had verbalized suicidal ideation with numerous plans she has been considering. Psychiatric consultation was requested to evaluate patient for suicidality. Pt is also on the AWSS protocol for suspected alcohol abuse/withdrawal. Patient's case was reviewed and discussed during morning report with psychiatric nurse liaison and supervising psychiatrist. Pt was cooperative with psychiatric assessment. Pt states that she is feeling much better today physically, sharing that she had fallen ~2 months ago and had numerous fractured bones and injuries related to this episode. She reports chest pain and nausea contributing to patient feeling the need to come to the ED, but quickly reports to this provider that "I've just given up." Pt states t hat she has been feeling as though she is a burden on her family members. Pt states that she has been noticing depressed mood for greater than 6 months; also endorsing difficulty sleeping, poor appetite, limited concentration, lack of motivation, crying spells, and feelings of helplessness. She denies previous treatment for depression, but does take trazodone to assist with sleep and lorazepam to "relax my throat so I can eat without everything coming back up." Pt does endorse suicidal ideation for the past 2 months, reporting very specific plans "that I definitely could do." She states she has considered "cutting myself. It would be messy, but with my clotting disorder I would never stop bleeding"; "putting bubbles into my injections (into her Mediport)"; and "getting lost in the [place]." When asked what prevents patient from acting on these plans, she becomes very tearful and is unable to provide an answer. With some prompting, patient is able to recognize that her dog and her children are important to her. Pt does identify only her two adult children as supports, but states she has difficulty reaching out to them and she believes they are very busy and she feels like a burden. She reports masking her depressive symptoms well and does not believe any of her family members are aware of her depressive symptoms. Pt states she does not currently have any psychiatric providers. She has a strong alliance with her PCP, who is currently prescibing her lorazepam and trazodone. Pt states she has not taken the trazodone in several weeks as "it doesn't do anything to help, so why take it?" Pt denies history of suicide attempts or psychiatric hospitaliztions. Pt denies HI, SIB, A/V hallucinations, paranoia, cody/hypomania, other symptoms more suggestive of a bipolar presentation, OCD, PTSD, eating disorder, and other specific psychiatric symptoms. She is willing to consider inpatient psychiatric treatment, medication recommendations, or outpatient psychiatric referrals. Pt is appreciative of time spent and was agreeable with reaching out to our service with any additional needs or concerns. Past Psychiatric History Current Psychiatric Diagnosis: Unknown Outpatient Services: Denies Previous Psych Admissions: Denies Do You Have Access To A Gun?: No History of Previous Suicide Attempt: No Describe Attempts in the Past: Denies Past Medication Trials: Per patient report: 1. Ambien 2. Ativan 3. Trazodone - for insomnia 4. Neurontin 5. Citalopram (listed on allergy list) Allergies Allergy/AdvReac Type Severity Reaction Status Date / Time iron dextran complex Allergy Severe SOB, heart Verified 09/22/19 22:58 racing (see comments) cat dander Allergy Intermediate eye Verified 09/22/19 22:58 watering ceftriaxone Allergy Intermediate Hives Verified 09/22/19 22:58 ciprofloxacin Allergy Intermediate lips Verified 09/22/19 22:58 burning/peeling doxycycline Allergy Intermediate hives, Verified 09/22/19 22:58 vomiting latex Allergy Intermediate mouth Verified 09/22/19 22:58 hives/burning sensation Penicillins Allergy Intermediate Hives Verified 09/22/19 22:58 Quinolones Allergy Intermediate Hives Verified 09/22/19 22:58 Sulfa (Sulfonamide Allergy Intermediate hives Verified 09/22/19 22:58 Antibiotics) Aminoglycosides Allergy Unknown unknown Verified 09/22/19 22:58 reaction tobramycin AdvReac Severe blindness Verified 09/22/19 22:58 lactose AdvReac Intermediate nausea, GI Verified 09/22/19 22:58 upset citalopram AdvReac Mild restlessnes Verified 09/22/19 22:58 s Ferric Oxide Allergy Intermediate hives (see Uncoded 09/22/19 22:58 comments) Home Medications Home Medications Medication Instructions Recorded Confirmed Type cyclobenzaprine 5 mg PO TID PRN 01/29/18 10/24/19 History pantoprazole [Protonix] 40 mg PO BID 01/29/18 10/24/19 History potassium chloride [Klor-Con M10] 20 meq PO QAM 01/29/18 10/24/19 History promethazine 25 mg PO TIDM PRN 01/29/18 10/24/19 History levetiracetam [Keppra] 1,500 mg PO BID 07/07/18 10/24/19 History trazodone 50 mg PO HS PRN 07/07/18 10/24/19 History gabapentin 400 mg PO TID 11/18/18 10/24/19 History lorazepam [Ativan] 1 mg PO Q8H PRN 11/18/18 10/24/19 History Forteo 20 mcg SUBCUT DAILY 03/18/19 10/24/19 History cholecalciferol (vitamin D3) 5,000 unit PO QAM 05/22/19 10/24/19 History [Vitamin D3] fexofenadine [Maame Allergy] 180 mg PO DAILY 09/22/19 10/24/19 History furosemide 40 mg PO QAM 10/24/19 10/24/19 History montelukast 10 mg PO DAILY 10/24/19 10/24/19 History ondansetron 4 mg PO Q12H PRN 3 Days #9 tab 10/24/19 Rx oxycodone 5 mg PO QID PRN 10/24/19 10/24/19 History promethazine 25 mg HI Q6H PRN #12 ea 10/24/19 Rx Family History Pt denies known family history of mental health conditions Substance Abuse History Denies illicit drug use. Admits to drinking 0-2 glasses of wine a day. Was seen in the ED in 09/2019 for fall related to alcohol use. 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 Lanza Surgical History H/O foot surgery RT HEEL SURGERY X 2 (HARDWARE INTACT) TOE CORRECTION X 3 (PINS INTACT ON RT FOOT) H/O shoulder surgery RT HUMERUS FX REPAIRED (HARDWARE INTACT) H/O wisdom tooth extraction H/O wrist surgery LEFT WRIST X 2 SURGERIES History of cholecystectomy History of colonoscopy History of esophagogastroduodenoscopy (EGD) History of gastrectomy secondary to PUD (OVER 10 YEARS AGO) History of hand surgery LEFT HAND FINGER REPAIR History of hysterectomy (Acute) History of vascular access device MEDIPORT INTACT Family History Father Diabetes Mother Von Willebrand disease Grandmother (Paternal) Family hx of colon cancer Social History Preferred Language: Georgian Communication Ability: Effective Book Reviewer Required: No Beliefs That Will Affect Care: None marital status: Legally Current Living Situation: Alone current occupational status: disabled Other Information That Helps Us Care for You: No Feels Safe at Home: Yes Safety Concerns: Feels Safe At This Time Smoking Status: Never smoker Do You Dip or Chew Tobacco: No ; Second Hand Exposure: No ; Tobacco Cessation Education Requested by Patient: No Hx Alcohol Use: Yes Alcohol type: wine Hx Substance Use: No Physical Exam Psychiatric: Orientation: alert, oriented x 3 and cooperative (and pleasant) Apperance: appropriately dressed, appropriately groomed and appeared stated age Eye Contact: good eye contact though patient is legally blind Motor Behavior: no abnormal motor movements (observed while laying in bed) Speech: normal rate/rhythm/volume of speech Affect: + depressed affect, + tearful affect and mood congruent with affect Mood: + depressed mood Thought Process: goal directed thought process, clear/coherent thought process and thought association intact Thought Content: reality based without delusions, + hopelessness, + worthlessness and + loneliness Suicidal Thoughts: + reports suicidal thoughts, + reports suicidal plan (cut self and bleed out; inject bubbles into Mediport; get lost in [place]) and + reports suicidal intent ("I definitely could do it") Homicidal Thoughts: denies homicidal thoughts Hallucinations: no auditory hallucinations and no visual hallucinations Cog nition: recent memory grossly intact, attention grossly intact and language grossly intact Estimated Intelligence: consistent with education level Insight: + fair insight Judgement: + fair judgement Vital Signs (Past 24 Hours): Last Vital Signs Temp 36.6 C 10/25/19 05:57 Pulse 104 H 10/25/19 10:18 Resp 18 10/25/19 05:57 BP 119/80 10/25/19 05:57 Pulse Ox 97 10/25/19 05:57 Review of Systems Constitutional: reports fatigue HEENT: legally blind Cardiovascular: denied Respiratory: denied Gastrointestinal: reports nausea, decreased appetite Neurological: denied Psychiatric: denies symptoms other than stated above Total of at least 10 systems reviewed, pertinent positives as above and in HPI. Results & Data (PSY) Medications Administered Folic Acid (Folvite) 1 mg PO QAM DENIS Stop: 11/23/19 20:04 Last Admin: 10/25/19 12:12 Dose: 1 mg Documented by: [id number] Admin: 10/24/19 22:47 Dose: Not Given Documented by: [id number] Gabapentin (Neurontin) 400 mg PO TID DENIS Stop: 11/24/19 02:29 Last Admin: 10/25/19 12:13 Dose: 400 mg Documented by: [id number] Admin: 10/25/19 04:23 Dose: Not Given Documented by: [id number] Heparin Sodium (Porcine) (Heparin Sod 100 Unit/Ml Flush) 5 ml FLUSH PRN PRN PRN Reason: Flush Stop: 11/24/19 03:02 Last Admin: 10/25/19 07:50 Dose: 5 ml Documented by: [id number] Lorazepam (Ativan) 2 mg in 4 mls @ 4 mls/min IV UD PRN; Protocol PRN Reason: EtOH Withdrawl AWSS Score 8,9 Stop: 11/23/19 23:51 Last Admin: 10/25/19 00:48 Dose: 4 mls/min Documented by: [id number] Admin: 10/25/19 00:26 Dose: 4 mls/min Documented by: [id number] Lorazepam (Ativan) 3 mg in 6 mls @ 4 mls/min IV ONCE PRN; Protocol PRN Reason: EtOH Withdrawl AWSS Score >=10 Stop: 11/23/19 23:51 Last Admin: 10/25/19 01:09 Dose: 4 mls/min Documented by: [id number] Levetiracetam (Keppra) 1,500 mg PO BID [facility] Stop: 11/23/19 20:59 Last Admin: 10/25/19 12:13 Dose: 1,500 mg Documented by: [id number] Admin: 10/24/19 22:48 Dose: Not Given Documented by: [id number] Morphine Sulfate (Morphine Sulfate) 2 mg IV Q6H PRN PRN Reason: Pain Stop: 11/07/19 23:25 Last Admin: 10/25/19 13:06 Dose: 2 mg Documented by: [id number] Admin: 10/25/19 06:44 Dose: 2 mg Documented by: [id number] Mupirocin (Bactroban 2%) 1 appln EXT BID [facility] Stop: 11/23/19 20:59 Last Admin: 10/25/19 12:14 Dose: 1 appln Documented by: [id number] Admin: 10/24/19 22:47 Dose: 1 appln Documented by: [id number] Ondansetron HCl (Zofran) 4 mg IV Q6H PRN PRN Reason: Nausea Stop: 11/23/19 20:04 Last Admin: 10/25/19 07:50 Dose: 4 mg Documented by: [id number] Admin: 10/24/19 20:18 Dose: 4 mg Documented by: [id number] Oxycodone HCl (Roxicodone Immediate Rel) 5 mg PO QID PRN PRN Reason: Pain Stop: 11/07/19 20:26 Last Admin: 10/25/19 10:02 Dose: 5 mg Documented by: [id number] Pantoprazole Sodium (Protonix) 40 mg PO BID [facility] Stop: 11/23/19 20:59 Last Admin: 10/25/19 12:13 Dose: 40 mg Documented by: [id number] Admin: 10/24/19 22:48 Dose: Not Given Documented by: [id number] Thiamine HCl (Vitamin B-1) 100 mg PO QAM [facility] Stop: 11/23/19 20:04 Last Admin: 10/25/19 12:13 Dose: 100 mg Documented by: [id number] Admin: 10/24/19 22:48 Dose: Not Given Documented by: [id number] Coding Level of Care Code 59929 [facility] Intl Hosp Care Lvl 3 Diagnoses Suicidal ideation R45.851 Von Willebrand disease D68.0 Seizure disorder G40.909
[2019-10-25] MEDS: PROMETHAZINE HCL 12.5 MG in SODIUM CHLORIDE 0.9% 50 ML IV PRN ×2 (16:45→22:38)
--- NOTE | 2019-10-25 19:24 | Hospitalist Progress Note ---
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 In ED patient remained hemodynamically stable although she did have sinus tachycardia with rates in the low 100s. Lab work notable for H&H 8.7 and 28.6, platelet 403, K3.8, BUN 8, creatinine 0.58, glucose 84, trop 0.056, albumin 2.7, pro Mason WNL, alcohol and tox screen negative. Chest x-ray reveals no recurrent residual pneumothorax, small left pleural effusion with left basilar opacity likely representing atelectasis, subacute left-sided rib fractures similar to in appearance to prior imaging. In ED she did have repeat troponin which decreased to 0.048. She does have prior history of elevated troponin. In ED she received IVF, Compazine, morphine and Phenergan with minimal relief. Chest pain likely coming from subacute rib fracture, staple site and atelectasis admit to tele troponin - decreased Echocardiogram -obtained and unremarkable Place Bactroban 2 staple sites on left lateral chest wall Consult wound nurse and obtain wound culture -dressings changed by wound nurse, recommendations provided pt with multiple antibiotic allergies and does not appear to be an acute cellulitis treat topically for now (3) Atelectasis: Encourage incentive spirometry Saturating well on room air (4) Ribs, multiple fractures: Status post fall 09/21 with left-sided rib fractures 6 through 10, seventh rib fracture in 2 places Chest pain likely refractory from rib fractures and atelectasis Encourage incentive spirometry Oxycodone PRN for pain Avoid NSAIDs in setting of bleeding diathesis (5) Suicidal ideation: Patient with report of suicidal ideation with multiple plans She feels as if she is a burden and no longer wants to be dependent on everybody Plans include walking out in front of traffic, injecting air bubbles into Mediport, or getting lost in the [place] on purpose Consult psychiatry -once medically cleared likely to require inpatient psych ad mission Suicide precautions, one-to-one (6) Ambulatory dysfunction: Patient with report of frequent falls Consult PT OT (7) Anemia: H&H 8.7 and 28.6 Normocytic normochromic Her hemoglobin appears to fluctuate Likely decreased in setting of recent trauma with rib fractures and hemothorax Monitor H&H closely, signs or symptoms of active bleeding (8) Seizure disorder: Last known seizure many years ago, although what brought her to ED was metallic taste in mouth that was going up to her nose which she states "precedes a seizure" She has not been taking her gabapentin or Keppra for approximately 2 weeks She has actually stopped all of her medications for the past 2 weeks Will resume gabapentin and Keppra seizure precautions (9) Von Willebrand disease: no s/sx of bleeding at this time monitor (10) Alcohol abuse: Awss protocol prn ativan daily folic acid and thiamine (11) Blindness: 2/2 to tobramycin pt will need verbal cueing (12) Depression: Psychiatry consulted Currently not taking any antidepressants Mood unstable given suicidal ideation Plan as above (13) DVT prophylaxis: SCD/TEDS No chemical prophylaxis in setting of von Willebrand's disease Disposition: telemetry Follow-up: PCP Dr Bae upon discharge Admission and Anticipated Discharge Date Admission Date: October 24, 2019 Subjective Patient is sitting up in bed, in no acute distress. Continued on one-on-one. Seen by wound nurse, dressing changes made on her left chest. Currently no major complaints. She has some mild pain in her left rib cage area. No fevers, chills, shortness of breath, abdominal pain, nausea or vomiting. Echo obtained, unremarkable. Procalcitonin negative, white blood cell count not elevated. Review of Systems Review of Systems: All systems reviewed & are unremarkable except as noted in HPI & below Constitutional: no fever and no chills Respiratory: no cough and no dyspnea Cardiovascular: no chest pain Additional Comments: Patient has left rib cage pain/discomfort, chronic from history of rib fractures Gastrointestinal: + nausea; no abdominal pain and no vomiting Physical Exam Physical Exam: Constitutional: Thin, petite, female, with sunglasses in place, vitals as above, NAD, sitting up in bed, answers questions appropriately Head: Normocephalic, Atraumatic Eyes: Refuses to take sunglasses off to examine ENMT: external ear and nose normal, oropharynx normal Neck: trachea midline, no thyromegaly normal visual inspection Respiratory: normal respiratory effort, pain with inspiration, lungs clear to auscultation, no wheeze, rales, rhonchi. Normal insp/exp effort, no accessory muscle use Cardiovascular: RRR, no murmur, no edema Vessels: no JVD or carotid bruit Chest: Left lateral and posterior chest wall dressing in place, left lateral chest wall chito intact with mild surrounding erythema, pain to palpation left lateral chest wall Abdomen: normal bowel sounds, soft, nontender, nondistended Musculoskeletal: no cyanosis or clubbing, extremities motor strength 5/5, moves extremities spontaneously Skin: no rashes, warm and dry normal turgor Neurologic: PERRL, EOMI, accommodation nl, no face palsy, no dysarthria CN's II-XI intact bilaterally and moves all extremities Psychiatric: A+Ox3, euthymic affect Results & Data Results & Data ([facility]) Vital Signs (Past 12 Hours) Vital Signs Temp Pulse Pulse Resp BP Pulse Ox 10/25/19 15:15 36.4 C L 91 H 16 124/84 97 10/25/19 10:18 104 H Laboratory Results 10/25/19 10/25/19 10/25/19 Range/Units 07:45 07:45 02:12 WBC (4.8-10.8) K/uL RBC (4.2-5.4) M/uL Hgb (12.0-16.0) g/dL Hct (37-47) % MCV (80-100) fL MCH (25-34) pg MCHC (32-36) g/dL RDW Std Deviation (36.4-46.3) fL RDW Coeff of Lisa (11.5-14.5) % Plt Count (130-400) K/uL MPV (7.4-10.4) fL Sodium 141 (136-145) mmol/L Potassium 3.4 L (3.5-5.1) mmol/L Chloride 111 H (98-107) mmol/L Carbon Dioxide 26 (21-32) mmol/L Anion Gap 4.0 (3-11) BUN 6 L (7-18) mg/dl Creatinine 0.53 L (0.6-1.2) mg/dl Est Cr Clr Drug Dosing 109.7 ml/min Est GFR ( Amer) 128.3 Est GFR (Non-Af Amer) 110.7 BUN/Creatinine Ratio 11.4 (10-20) Glucose 80 (70-99) mg/dl Calcium 7.8 L (8.5-10.1) mg/dl Troponin I 0.045 (0-0.045) ng/ml Triglycerides 57 (0-150) mg/dl Cholesterol 121 (0-200) mg/dl LDL Cholesterol, Calc 56 mg/dl VLDL Cholesterol, Calc 11 mg/dl HDL Cholesterol 54 mg/dl Cholesterol/HDL Ratio 2 Urine Opiates Screen Pos H (Neg) U Codeine Confrm GC/MS Pending Ur Morphine (GC/MS) Pending Ur Hydrocodone (GC/MS) Pending Ur Norhydrocodone Pending Ur Noroxycodone Pending Urine Oxycodone (GC/MS) Pending U Oxymorphone GC/MS Pending Ur Methadone, Qual Neg (Neg) Ur Hydromorphone (GC/MS) Pending Urine Barbiturates Neg (Neg) Ur Phencyclidine (PCP) Neg (Neg) U Amphetamin/Meth Scrn Neg (Neg) MDMA (Ecstasy) Screen Neg (Neg) U Benzodiazepines Scrn Neg (Neg) Ur Cocaine Metabolite Neg (Neg) U Marijuana (THC) Screen Neg (Neg) Drug Screen Comment Pending 10/25/19 10/24/19 Range/Units 02:12 22:43 WBC 5.68 (4.8-10.8) K/uL RBC 3.01 L (4.2-5.4) M/uL Hgb 7.8 L (12.0-16.0) g/dL Hct 25.2 L (37-47) % MCV 83.7 (80-100) fL MCH 25.9 (25-34) pg MCHC 31.0 L (32-36) g/dL RDW Std Deviation 56.4 H (36.4-46.3) fL RDW Coeff of Lisa 18.8 H (11.5-14.5) % Plt Count 334 (130-400) K/uL MPV 10.3 (7.4-10.4) fL Sodium (136-145) mmol/L Potassium (3.5-5.1) mmol/L Chloride (98-107) mmol/L Carbon Dioxide (21-32) mmol/L Anion Gap (3-11) BUN (7-18) mg/dl Creatinine (0.6-1.2) mg/dl Est Cr Clr Drug Dosing ml/min Est GFR ( Amer) Est GFR (Non-Af Amer) BUN/Creatinine Ratio (10-20) Glucose (70-99) mg/dl Calcium (8.5-10.1) mg/dl Troponin I 0.043 (0-0.045) ng/ml Triglycerides (0-150) mg/dl Cholesterol (0-200) mg/dl LDL Cholesterol, Calc mg/dl VLDL Cholesterol, Calc mg/dl HDL Cholesterol mg/dl Cholesterol/HDL Ratio Urine Opiates Screen (Neg) U Codeine Confrm GC/MS Ur Morphine (GC/MS) Ur Hydrocodone (GC/MS) Ur Norhydrocodone Ur Noroxycodone Urine Oxycodone (GC/MS) U Oxymorphone GC/MS Ur Methadone, Qual (Neg) Ur Hydromorphone (GC/MS) Urine Barbiturates (Neg) Ur Phencyclidine (PCP) (Neg) U Amphetamin/Meth Scrn (Neg) MDMA (Ecstasy) Screen (Neg) U Benzodiazepines Scrn (Neg) Ur Cocaine Metabolite (Neg) U Marijuana (THC) Screen (Neg) Drug Screen Comment Medications Administered Current Inpatient Medications Acetaminophen (Tylenol) 650 mg PO Q4H PRN PRN Reason: Pain or Fever Stop: 11/23/19 20:04 Al Hydrox/Mg Hydrox/Simethicone (Maalox) 15 ml PO Q4H PRN PRN Reason: Dyspepsia Stop: 11/23/19 20:04 Folic Acid (Folvite) 1 mg PO QAM [facility] Stop: 11/23/19 20:04 Last Admin: 10/25/19 12:12 Dose: 1 mg Documented by: Gabapentin (Neurontin) 400 mg PO TID [facility] Stop: 11/24/19 02:29 Last Admin: 10/25/19 14:38 Dose: Not Given Documented by: Heparin Sodium (Porcine) (Heparin Sod 100 Unit/Ml Flush) 5 ml FLUSH PRN PRN PRN Reason: Flush Stop: 11/24/19 03:02 Last Admin: 10/25/19 14:39 Dose: 5 ml Documented by: Promethazine HCl 12.5 mg/ (Sodium Chloride) 50.5 mls @ 202 mls/hr IV Q6H PRN PRN Reason: Nausea And Vomiting Stop: 11/23/19 23:24 Lorazepam (Ativan) 1 mg in 2 mls @ 2 mls/min IV UD PRN; Protocol PRN Reason: EtOH Withdrawl AWSS Score 6,7 Stop: 11/23/19 23:51 Lorazepam (Ativan) 2 mg in 4 mls @ 4 mls/min IV UD PRN; Protocol PRN Reason: EtOH Withdrawl AWSS Score 8,9 Stop: 11/23/19 23:51 Last Admin: 10/25/19 00:48 Dose: 4 mls/min Documented by: Lorazepam (Ativan) 3 mg in 6 mls @ 4 mls/min IV ONCE PRN; Protocol PRN Reason: EtOH Withdrawl AWSS Score >=10 Stop: 11/23/19 23:51 Last Admin: 10/25/19 01:09 Dose: 4 mls/min Documented by: Levetiracetam (Keppra) 1,500 mg PO BID [facility] Stop: 11/23/19 20:59 Last Admin: 10/25/19 12:13 Dose: 1,500 mg Documented by: Lorazepam (Ativan) 1 mg PO ONE PRN; Protocol PRN Reason: EtoH Withdrawal AWSS 6-10 Magnesium Hydroxide (Milk Of Magnesia) 30 ml PO Q12H PRN PRN Reason: Constipation Stop: 11/23/19 20:04 Morphine Sulfate (Morphine Sulfate) 2 mg IV Q6H PRN PRN Reason: Pain Stop: 11/07/19 23:25 Last Admin: 10/25/19 13:06 Dose: 2 mg Documented by: Mupirocin (Bactroban 2%) 1 appln EXT BID [facility] Stop: 11/23/19 20:59 Last Admin: 10/25/19 12:14 Dose: 1 appln Documented by: Ondansetron HCl (Zofran) 4 mg IV Q6H PRN PRN Reason: Nausea Stop: 11/23/19 20:04 Last Admin: 10/25/19 07:50 Dose: 4 mg Documented by: Oxycodone HCl (Roxicodone Immediate Rel) 5 mg PO QID PRN PRN Reason: Pain Stop: 11/07/19 20:26 Last Admin: 10/25/19 16:26 Dose: 5 mg Documented by: Pantoprazole Sodium (Protonix) 40 mg PO BID [facility] Stop: 11/23/19 20:59 Last Admin: 10/25/19 12:13 Dose: 40 mg Documented by: Polyethylene Glycol (Miralax Powder Packet) 17 gm PO DAILY PRN PRN Reason: Constipation Stop: 11/23/19 20:04 Thiamine HCl (Vitamin B-1) 100 mg PO QAM [facility] Stop: 11/23/19 20:04 Last Admin: 10/25/19 12:13 Dose: 100 mg Documented by: Trazodone HCl (Desyrel) 50 mg PO HS PRN PRN Reason: Sleep Stop: 11/23/19 20:04 (1) Chest pain Chest pain type: unspecified Qualified Code(s): R07.9 - Chest pain, unspecified (2) Anemia Anemia type: unspecified type Qualified Code(s): D64.9 - Anemia, unspecified
[2019-10-25] MEDS ORDERED: ZOLPIDEM TARTRATE 5 MG TAB PO ONE (21:30)
[2019-10-26] MEDS: MoRPHine SULFATE 2 MG/ML CARP IV PRN ×2 (02:07→11:46)
[2019-10-26] MEDS: ONDANSETRON INJ 2 MG/ML 2 ML VIAL IV PRN (05:15)
[2019-10-26] MEDS: OXYCODONE HCL IR 5 MG TAB (IMMEDIATE RELEASE) PO PRN ×2 (05:16→14:05)
[2019-10-26] MEDS: HEPARIN 100 UNIT/ML 5ML FLUSH FLUSH PRN ×2 (06:25→11:47)
[2019-10-26 07:12] LABS: Iron 16 mcg/dl (35-150); Total Iron Binding Capacity 340 mcg/dl (250-450)
[2019-10-26 07:44] LABS: Hematocrit (blood only) 29.4 % (37-47); Hemoglobin 8.9 g/dL (12.0-16.0)
[2019-10-26 07:48] LABS: BUN Creatinine Ratio 5.1 (10-20); Calcium 8.5 mg/dl (8.5-10.1); Creatinine Clr Calc Pharmacy 92.3 ml/min; Est GFR (African American) 121.2; Est GFR (Non-African American) 104.6; Magnesium 2.1 mg/dl (1.8-2.4); Phosphorus 5.4 mg/dl (2.5-4.9); Potassium 3.9 mmol/L (3.5-5.1)
[2019-10-26] MEDS: PROMETHAZINE HCL 12.5 MG in SODIUM CHLORIDE 0.9% 50 ML IV PRN (08:38)
[2019-10-26] MEDS: THIAMINE HCL 100 MG TAB PO SCH (08:39)
[2019-10-26] MEDS: FOLIC ACID 1 MG TAB PO SCH (08:39)
[2019-10-26] MEDS: GABAPENTIN 400 MG CAP PO SCH ×3 (08:39→20:45)
[2019-10-26] MEDS: levETIRAcetam 500 MG TAB PO SCH ×2 (08:40→20:45)
[2019-10-26] MEDS: MUPIROCIN 2% OINT 22 GM TUBE EXT SCH ×2 (08:40→20:45)
[2019-10-26] MEDS: PANTOprazole 40 MG TAB PO SCH ×2 (08:40→20:45)
--- NOTE | 2019-10-26 09:50 | Hospitalist Progress Note ---
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 In ED patient remained hemodynamically stable although she did have sinus tachycardia with rates in the low 100s. Lab work notable for H&H 8.7 and 28.6, platelet 403, K3.8, BUN 8, creatinine 0.58, glucose 84, trop 0.056, albumin 2.7, pro Mason WNL, alcohol and tox screen negative. Chest x-ray reveals no recurrent residual pneumothorax, small left pleural effusion with left basilar opacity likely representing atelectasis, subacute left-sided rib fractures similar to in appearance to prior imaging. In ED she did have repeat troponin which decreased to 0.048. She does have prior history of elevated troponin. In ED she received IVF, Compazine, morphine and Phenergan with minimal relief. Chest pain likely coming from subacute rib fracture, staple site and atelectasis admit to tele troponin - decreased Echocardiogram -obtained and unremarkable Placed Bactroban 2 staple sites on left lateral chest wall on admission Consulted wound nurse -dressings changed by wound nurse, recommendations p rovided pt with multiple antibiotic allergies and does not appear to be an acute cellulitis treat topically for now Surgical team saw the pt and removed chito, steri strips applied, should stay on for 5-7 days (3) Atelectasis: Encourage incentive spirometry Saturating well on room air (4) Ribs, multiple fractures: Status post fall 09/21 with left-sided rib fractures 6 through 10, seventh rib fracture in 2 places Chest pain likely refractory from rib fractures and atelectasis Encourage incentive spirometry Oxycodone PRN for pain Avoid NSAIDs in setting of bleeding diathesis (5) Suicidal ideation: Patient with report of suicidal ideation with multiple plans She feels as if she is a burden and no longer wants to be dependent on everybody Plans include walking out in front of traffic, injecting air bubbles into Mediport, or getting lost in the [place] on purpose Consult psychiatry -once medically cleared likely to require inpatient psych admission Suicide precautions, one-to-one (6) Ambulatory dysfunction: Patient with report of frequent falls Consult PT OT (7) Anemia: H&H 8.7 and 28.6 Normocytic normochromic Her hemoglobin appears to fluctuate Likely decreased in setting of recent trauma with rib fractures and hemothorax Monitor H&H closely, signs or symptoms of active bleeding FOBT ordered Plan to start iron supplement, however pt has reported allergy to IV iron and pt does not want to take PO iron (8) Seizure disorder: Last known seizure many years ago, although what brought her to ED was metallic taste in mouth that was going up to her nose which she states "precedes a seizure" She has not been taking her gabapentin or Keppra for approximately 2 weeks She has actually stopped all of her medications for the past 2 weeks Will resume gabapentin and Keppra seizure precautions (9) Von Willebrand disease: no s/sx of bleeding at this time monitor (10) Alcohol abuse: Awss protocol prn ativan daily folic acid and thiamine (11) Blindness: 2/2 to tobramycin pt will need verbal cueing (12) Depression: Psychiatry consulted Currently not taking any antidepressants Mood unstable given suicidal ideation Plan as above (13) DVT prophylaxis: SCD/TEDS No chemical prophylaxis in setting of von Willebrand's disease Disposition: telemetry Follow-up: PCP Dr Bae upon discharge Admission and Anticipated Discharge Date Admission Date: October 25, 2019 Subjective Patient is now sitting up in the bed, in no acute distress. Surgical service removed the staple from her wound (after chest tube placement). Patient says that now she feels better. Denies any fevers, chills, increased chest pain, shortness of breath, abdominal pain, nausea or vomiting. She says that she has always difficulty with eating and before she eats she pre-medicates at home, says that she takes p.o. Ativan and p.o. Phenergan. Patient much interested in psychiatric evaluation and treatment, says that she wants to get better, she is occasionally teary during my interview. Review of Systems Review of Systems: All systems reviewed & are unremarkable except as noted in HPI & below Constitutional: no fever and no chills Respiratory: no cough and no dyspnea Cardiovascular: no chest pain (Left rib cage pain due to broken ribs) and no palpitations Gastrointestinal: no abdominal pain and no vomiting Physical Exam Physical Exam: Constitutional: Thin, petite, female, with sunglasses in place, vitals as above, NAD, sitting up in bed, answers questions appropriately Head: Normocephalic, Atraumatic Eyes: Refuses to take sunglasses off to examine ENMT: external ear and nose normal, oropharynx normal Neck: trachea midline, no thyromegaly normal visual inspection Respiratory: normal respiratory effort, pain with inspiration, lungs clear to auscultation, no wheeze, rales, rhonchi. Normal insp/exp effort, no accessory muscle use Cardiovascular: RRR, no murmur, no edema Vessels: no JVD or carotid bruit Chest: Left lateral and posterior chest wall mildly tender to palpation, chito removed by surgical service today, no signs of infection Abdomen: normal bowel sounds, soft, nontender, nondistended Musculoskeletal: no cyanosis or clubbing, extremities motor strength 5/5, moves extremities spontaneously Skin: no rashes, warm and dry normal turgor Neurologic: PERRL, EOMI, accommodation nl, no face palsy, no dysarthria CN's II-XI intact bilaterally and moves all extremities Psychiatric: A+Ox3, euthymic affect Results & Data Results & Data ([facility]) Vital Signs (Past 12 Hours) Vital Signs Temp Pulse Pulse Resp BP Pulse Ox 10/26/19 07:56 101 H 10/26/19 07:04 36.5 C 74 16 115/79 99 10/26/19 05:30 101 H 10/26/19 05:14 36.5 C 84 18 119/81 95 10/25/19 23:09 36.4 C L 96 H 18 122/88 100 Laboratory Results 10/26/19 10/26/19 10/26/19 Range/Units 06:28 06:25 06:25 Hgb 8.9 L (12.0-16.0) g/dL Hct 29.4 L (37-47) % Sodium 141 (136-145) mmol/L Potassium 3.9 (3.5-5.1) mmol/L Chloride 109 H (98-107) mmol/L Carbon Dioxide 25 (21-32) mmol/L Anion Gap 7.0 (3-11) BUN 3 L (7-18) mg/dl Creatinine 0.63 (0.6-1.2) mg/dl Est Cr Clr Drug Dosing 92.3 ml/min Est GFR ( Amer) 121.2 Est GFR (Non-Af Amer) 104.6 BUN/Creatinine Ratio 5.1 L (10-20) Glucose 82 (70-99) mg/dl Calcium 8.5 (8.5-10.1) mg/dl Phosphorus 5.4 H (2.5-4.9) mg/dl Magnesium 2.1 (1.8-2.4) mg/dl Iron (35-150) mcg/dl TIBC (250-450) mcg/dl Vitamin B12 (211-911) pg/ml 25-OH Vitamin D Total 31.1 (30-100) ng/ml 10/26/19 10/26/19 Range/Units 06:25 06:25 Hgb (12.0-16.0) g/dL Hct (37-47) % Sodium (136-145) mmol/L Potassium (3.5-5.1) mmol/L Chloride (98-107) mmol/L Carbon Dioxide (21-32) mmol/L Anion Gap (3-11) BUN (7-18) mg/dl Creatinine (0.6-1.2) mg/dl Est Cr Clr Drug Dosing ml/min Est GFR ( Amer) Est GFR (Non-Af Amer) BUN/Creatinine Ratio (10-20) Glucose (70-99) mg/dl Calcium (8.5-10.1) mg/dl Phosphorus (2.5-4.9) mg/dl Magnesium (1.8-2.4) mg/dl Iron 16 L (35-150) mcg/dl TIBC 340 (250-450) mcg/dl Vitamin B12 1019 H (211-911) pg/ml 25-OH Vitamin D Total (30-100) ng/ml Medications Administered Current Inpatient Medications Acetaminophen (Tylenol) 650 mg PO Q4H PRN PRN Reason: Pain or Fever Stop: 11/23/19 20:04 Al Hydrox/Mg Hydrox/Simethicone (Maalox) 15 ml PO Q4H PRN PRN Reason: Dyspepsia Stop: 11/23/19 20:04 Folic Acid (Folvite) [address] [facility] Stop: 11/23/19 20:04 Last Admin: 10/26/19 08:39 Dose: 1 mg Documented by: Gabapentin (Neurontin) [address] [facility] Stop: 11/24/19 02:29 Last Admin: 10/26/19 08:39 Dose: 400 mg Documented by: Heparin Sodium (Porcine) (Heparin Sod 100 Unit/Ml Flush) 5 ml FLUSH PRN PRN PRN Reason: Flush Stop: 11/24/19 03:02 Last Admin: 10/26/19 06:25 Dose: 5 ml Documented by: Promethazine HCl 12.5 mg/ (Sodium Chloride) 50.5 mls @ 202 mls/hr IV Q6H PRN PRN Reason: Nausea And Vomiting Stop: 11/23/19 23:24 Last Infusion: 10/26/19 08:53 Dose: Infused Documented by: Lorazepam (Ativan) 1 mg in 2 mls @ 2 mls/min IV UD PRN; Protocol PRN Reason: EtOH Withdrawl AWSS Score 6,7 Stop: 11/23/19 23:51 Lorazepam (Ativan) 2 mg in 4 mls @ 4 mls/min IV UD PRN; Protocol PRN Reason: EtOH Withdrawl AWSS Score 8,9 Stop: 11/23/19 23:51 Last Admin: 10/25/19 00:48 Dose: 4 mls/min Documented by: Lorazepam (Ativan) 3 mg in 6 mls @ 4 mls/min IV ONCE PRN; Protocol PRN Reason: EtOH Withdrawl AWSS Score >=10 Stop: 11/23/19 23:51 Last Admin: 10/25/19 01:09 Dose: 4 mls/min Documented by: Levetiracetam (Keppra) 1,[address] [facility] Stop: 11/23/19 20:59 Last Admin: 10/26/19 08:40 Dose: 1,500 mg Documented by: Lorazepam (Ativan) 1 mg PO ONE PRN; Protocol PRN Reason: EtoH Withdrawal AWSS 6-10 Magnesium Hydroxide (Milk Of Magnesia) 30 ml PO Q12H PRN PRN Reason: Constipation Stop: 11/23/19 20:04 Morphine Sulfate (Morphine Sulfate) 2 mg IV Q6H PRN PRN Reason: Pain Stop: 11/07/19 23:25 Last Admin: 10/26/19 02:07 Dose: 2 mg Documented by: Mupirocin (Bactroban 2%) 1 appln EXT BID [facility] Stop: 11/23/19 20:59 Last Admin: 10/26/19 08:40 Dose: 1 appln Documented by: Ondansetron HCl (Zofran) 4 mg IV Q6H PRN PRN Reason: Nausea Stop: 11/23/19 20:04 Last Admin: 10/26/19 05:15 Dose: 4 mg Documented by: Oxycodone HCl (Roxicodone Immediate Rel) 5 mg PO QID PRN PRN Reason: Pain Stop: 11/07/19 20:26 Last Admin: 10/26/19 05:16 Dose: 5 mg Documented by: Pantoprazole Sodium (Protonix) [address] [facility] Stop: 11/23/19 20:59 Last Admin: 10/26/19 08:40 Dose: 40 mg Documented by: Polyethylene Glycol (Miralax Powder Packet) 17 gm PO DAILY PRN PRN Reason: Constipation Stop: 11/23/19 20:04 Thiamine HCl (Vitamin B-1) 100 mg PO QAM [facility] Stop: 11/23/19 20:04 Last Admin: 10/26/19 08:39 Dose: 100 mg Documented by: Trazodone HCl (Desyrel) 50 mg PO HS PRN PRN Reason: Sleep Stop: 11/23/19 20:04 (1) Anemia Anemia type: unspecified type Qualified Code(s): D64.9 - Anemia, unspecified (2) Chest pain Chest pain type: unspecified Qualified Code(s): R07.9 - Chest pain, unspecified
--- NOTE | 2019-10-26 14:43 | Surgery Consultation ---
Date of Consultation October 26, 2019 Assessment & Plan (1) Stapled skin wound: Had prior left chest tube for trauma, rib fractures and pneumothorax in September. Transferred to [facility]. Still has chito present at chest tube site and left back area. Erythema from chito but no signs of infection. Plan: [place] removed, wounds cleaned with saline. Steri strips applied, remove in 5-7 days Chest tube site wound still healing, edges not completely healed likely due to scab. Keep steri strips on . Avoid applying lotion/cream to that wound for at least a week or until healed. History of Present Illness Reason for Consultation: staple removal Requesting Physician: Keny Donohue MD Attending Physician: Keny Donohue MD History of Present Illness Alf is a 49 year-old female who had a fall in September in which she obtained rib fractures and pneumothorax along with other multiple traumas. She had chest tube inserted and was transferred to [facility]. Our services consulted for staple removal. She states she is hoping for the chito to be removed today. Really bothersome. Otherwise no complaints. Allergies Allergy/AdvReac Type Severity Reaction Status Date / Time iron dextran complex Allergy Severe SOB, heart Verified 09/22/19 22:58 racing (see comments) cat dander Allergy Intermediate eye Verified 09/22/19 22:58 watering ceftriaxone Allergy Intermediate Hives Verified 09/22/19 22:58 ciprofloxacin Allergy Intermediate lips Verified 09/22/19 22:58 burning/peeling doxycycline Allergy Intermediate hives, Verified 09/22/19 22:58 vomiting latex Allergy Intermediate mouth Verified 09/22/19 22:58 hives/burning sensation Penicillins Allergy Intermediate Hives Verified 09/22/19 22:58 Quinolones Allergy Intermediate Hives Verified 09/22/19 22:58 Sulfa (Sulfonamide Allergy Intermediate hives Verified 09/22/19 22:58 Antibiotics) Aminoglycosides Allergy Unknown unknown Verified 09/22/19 22:58 reaction tobramycin AdvReac Severe blindness Verified 09/22/19 22:58 lactose AdvReac Intermediate nausea, GI Verified 09/22/19 22:58 upset citalopram AdvReac Mild restlessnes Verified 09/22/19 22:58 s Ferric Oxide Allergy Intermediate hives (see Uncoded 09/22/19 22:58 comments) Home Medications Home Medications Medication Instructions Recorded Confirmed Type cyclobenzaprine 5 mg PO TID PRN 01/29/18 10/24/19 History pantoprazole [Protonix] 40 mg PO BID 01/29/18 10/24/19 History potassium chloride [Klor-Con M10] 20 meq PO QAM 01/29/18 10/24/19 History promethazine 25 mg PO TIDM PRN 01/29/18 10/24/19 History levetiracetam [Keppra] 1,500 mg PO BID 07/07/18 10/24/19 History trazodone 50 mg PO HS PRN 07/07/18 10/24/19 History gabapentin 400 mg PO TID 11/18/18 10/24/19 History lorazepam [Ativan] 1 mg PO Q8H PRN 11/18/18 10/24/19 History Forteo 20 mcg SUBCUT DAILY 03/18/19 10/24/19 History cholecalciferol (vitamin D3) 5,000 unit PO QAM 05/22/19 10/24/19 History [Vitamin D3] fexofenadine [Maame Allergy] 180 mg PO DAILY 09/22/19 10/24/19 History furosemide 40 mg PO QAM 10/24/19 10/24/19 History montelukast 10 mg PO DAILY 10/24/19 10/24/19 History ondansetron 4 mg PO Q12H PRN 3 Days #9 tab 10/24/19 Rx oxycodone 5 mg PO QID PRN 10/24/19 10/24/19 History promethazine 25 mg IA Q6H PRN #12 ea 10/24/19 Rx Patient History Medical History Anemia hx of blood transfusion (post-operatively 10/2018) Anxiety 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 Lanza Surgical History H/O foot surgery RT HEEL SURGERY X 2 (HARDWARE INTACT) TOE CORRECTION X 3 (PINS INTACT ON RT FOOT) H/O shoulder surgery RT HUMERUS FX REPAIRED (HARDWARE INTACT) H/O wisdom tooth extraction H/O wrist surgery LEFT WRIST X 2 SURGERIES History of cholecystectomy History of colonoscopy History of esophagogastroduodenoscopy (EGD) History of gastrectomy secondary to PUD (OVER 10 YEARS AGO) History of hand surgery LEFT HAND FINGER REPAIR History of hysterectomy (Acute) History of vascular access device MEDIPORT INTACT Family History Father Diabetes Mother Von Willebrand disease Grandmother (Paternal) Family hx of colon cancer Social History Preferred Language: Ukrainian Communication Ability: Effective Drift Miner Required: No Beliefs That Will Affect Care: None marital status: Legally Current Living Situation: Alone current occupational status: disabled Other Information That Helps Us Care for You: No Feels Safe at Home: Yes Safety Concerns: Feels Safe At This Time Smoking Status: Never smoker Do You Dip or Chew Tobacco: No ; Second Hand Exposure: No ; Tobacco Cessation Education Requested by Patient: No Hx Alcohol Use: Yes Alcohol type: wine Hx Substance Use: No Review of Systems Review of Systems: as per HPI Physical Exam Constitutional: WD/WN, vitals as above not ill appearing Chest (Breasts): Additional Comments: Lateral left chest with incision and chito present with scab, visible vicryl suture present outside skin under scab and staple. Skin: no rashes, warm and dry posterior left torso with three incisions with chito present, mild erythema from chito Psychiatric: Orientation: alert and oriented x 3 Results & Data Vital Signs (Past 12 Hours) Vital Signs Temp Pulse Pulse Resp BP Pulse Ox 10/26/19 07:56 101 H 10/26/19 07:04 36.5 C 74 16 115/79 99 10/26/19 05:30 101 H 10/26/19 05:14 36.5 C 84 18 119/81 95 Laboratory Results 10/26/19 10/26/19 10/26/19 Range/Units 06:28 06:25 06:25 Hgb 8.9 L (12.0-16.0) g/dL Hct 29.4 L (37-47) % Sodium 141 (136-145) mmol/L Potassium 3.9 (3.5-5.1) mmol/L Chloride 109 H (98-107) mmol/L Carbon Dioxide 25 (21-32) mmol/L Anion Gap 7.0 (3-11) BUN 3 L (7-18) mg/dl Creatinine 0.63 (0.6-1.2) mg/dl Est Cr Clr Drug Dosing 92.3 ml/min Est GFR ( Amer) 121.2 Est GFR (Non-Af Amer) 104.6 BUN/Creatinine Ratio 5.1 L (10-20) Glucose 82 (70-99) mg/dl Calcium 8.5 (8.5-10.1) mg/dl Phosphorus 5.4 H (2.5-4.9) mg/dl Magnesium 2.1 (1.8-2.4) mg/dl Iron (35-150) mcg/dl TIBC (250-450) mcg/dl Vitamin B12 (211-911) pg/ml 25-OH Vitamin D Total 31.1 (30-100) ng/ml 10/26/19 10/26/19 Range/Units 06:25 06:25 Hgb (12.0-16.0) g/dL Hct (37-47) % Sodium (136-145) mmol/L Potassium (3.5-5.1) mmol/L Chloride (98-107) mmol/L Carbon Dioxide (21-32) mmol/L Anion Gap (3-11) BUN (7-18) mg/dl Creatinine (0.6-1.2) mg/dl Est Cr Clr Drug Dosing ml/min Est GFR ( Amer) Est GFR (Non-Af Amer) BUN/Creatinine Ratio (10-20) Glucose (70-99) mg/dl Calcium (8.5-10.1) mg/dl Phosphorus (2.5-4.9) mg/dl Magnesium (1.8-2.4) mg/dl Iron 16 L (35-150) mcg/dl TIBC 340 (250-450) mcg/dl Vitamin B12 1019 H (211-911) pg/ml 25-OH Vitamin D Total (30-100) ng/ml
--- NOTE | 2019-10-26 15:53 | Electrocardiogram Report ---
Test Reason : Blood Pressure : / mmHG Vent. Rate : 086 BPM Atrial Rate : 086 BPM P-R Int : 134 ms QRS Dur : 068 ms QT Int : 350 ms P-R-T Axes : 025 005 032 degrees QTc Int : 418 ms Normal sinus rhythm Normal ECG When compared with ECG of 25-OCT-2019 07:30, No significant change was found Confirmed by Erickson Hopson ([id number]) on 10/26/2019 3:53:20 PM Referred By: REFERRED SELF Confirmed By:Erickson Hopson
[2019-10-26] MEDS: FERROUS SULFATE 325 MG TAB PO SCH (17:49)
[2019-10-26] MEDS: TRAMADOL HCL 50 MG TABLET PO PRN (20:44)
[2019-10-26] MEDS ORDERED: PROMETHAZINE HCL 12.5 MG in SODIUM CHLORIDE 0.9% 50 ML IV PRN (21:17)
[2019-10-26] MEDS: TRAZODONE HCL 50 MG TAB PO PRN (22:09)
[2019-10-27] MEDS: levETIRAcetam 500 MG TAB PO SCH ×2 (08:02→20:20)
[2019-10-27] MEDS: GABAPENTIN 400 MG CAP PO SCH ×3 (08:02→20:20)
[2019-10-27] MEDS: PANTOprazole 40 MG TAB PO SCH ×2 (08:02→20:20)
[2019-10-27] MEDS: MUPIROCIN 2% OINT 22 GM TUBE EXT SCH ×2 (08:03→20:20)
[2019-10-27] MEDS: FOLIC ACID 1 MG TAB PO SCH (08:03)
[2019-10-27] MEDS: FERROUS SULFATE 325 MG TAB PO SCH ×2 (08:03→16:51)
[2019-10-27] MEDS: THIAMINE HCL 100 MG TAB PO SCH (08:03)
[2019-10-27] MEDS: OXYCODONE HCL IR 5 MG TAB (IMMEDIATE RELEASE) PO PRN ×3 (08:05→23:29)
[2019-10-27 09:27] LABS: Codeine Urine NEGATIVE ng/mL (<50); Hydrocodone Urine NEGATIVE ng/mL (<50); Hydromor Urine NEGATIVE ng/mL (<50); Morphine Urine 1160 ng/mL (<50); Norhydrocodone Conf Ur NEGATIVE ng/mL (<50); Noroxycodone Urine NEGATIVE ng/mL (<50); Oxycodone Urine NEGATIVE ng/mL (<50); Oxymorph Urine NEGATIVE ng/mL (<50)
[2019-10-27] MEDS: HEPARIN 100 UNIT/ML 5ML FLUSH FLUSH PRN (11:25)
[2019-10-27] MEDS: LORazepam 0.5 MG TAB PO PRN ×2 (12:02→21:51)
[2019-10-27] MEDS: PROMETHAZINE HCL 12.5 MG/10 ML UDP PO PRN (12:02)
--- NOTE | 2019-10-27 16:29 | Hospitalist Progress Note ---
Date of Service October 27, 2019 Assessment & Plan (1) Ribs, multiple fractures: History of ambulatory dysfunction with frequent falls Status post fall 09/21 with left-sided rib fractures 6 through 10, seventh rib fracture in 2 places She was transferred to [facility] and has had chest tube placement She was admitted on of this month with increasing chest pain Chest pain likely refractory from rib fractures and atelectasis Encourage incentive spirometry Oxycodone PRN for pain Denies any significant pain Appreciate surgery input and taking of the chito (2) Fall: As above likely secondary to ambulatory dysfunction (3) Chest pain: Admitted with chest pain With mild elevation of troponin of any clinical significance Chest pain is secondary to recent rib fracture Continue with current narcotic and nonnarcotic analgesics (4) Elevated troponin: As above (5) Suicidal ideation: Patient with report of suicidal ideation with multiple plans She feels as if she is a burden and no longer wants to be dependent on everybody Plans include walking out in front of traffic, injecting air bubbles into Mediport, or getting lost in the [place] on purpose Consult psychiatry -once medically cleared likely to require inpatient psych admission Suicide precautions, one-to-one Remains medically stable to be transferred to psychiatric floor (6) Seizure disorder: Last known seizure many years ago, although what brought her to ED was metallic taste in mouth that was going up to her nose which she states "precedes a seizure" She has not been taking her gabapentin or Keppra for approximately 2 weeks She has actually stopped all of her medications for the past 2 weeks Will resume gabapentin and Keppra seizure precautions No more seizures while in the hospital We will continue to follow (7) Von Willebrand disease: No s/sx of bleeding at this time monitor (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 (9) Depression: Psychiatry consulted Currently not taking any antidepressants Mood unstable given suicidal ideation Plan as above (10) Anxiety: We will continue with current antianxiety medications Admission and Anticipated Discharge Date Admission Date: October 25, 2019 Subjective The patient was seen and examined in medical telemetry unit He has significant past medical history including type II fall Willebrand's disease, seizure disorder, 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 Complains to have anxiety symptoms and some discomfort in right upper abdomen Has some nausea but no vomiting Still requiring one-to-one sitter Review of Systems Review of Systems: All systems reviewed and are unremarkable except as noted below Constitutional: + weakness Physical Exam Physical Exam: Lying in bed comfortably Constitutional: well developed, well nourished and + ill appearing; no acute distress Eyes: PERRL, conjunctivae normal, anicteric sclerae ENMT: external ear and nose normal, oropharynx normal Neck: trachea midline, no thyromegaly Respiratory: normal respiratory effort; no respiratory distress Auscultation: lungs clear to auscultation bilaterally Cardiovascular: Rate/Rhythm: regular rate and regular rhythm Heart Sounds: no murmur Gastrointestinal (Abdomen): Inspection/Auscultation: abdomen normal to inspection; abdomen not distended Musculoskeletal: No acute arthritis involving any joints Neurologic: moves all extremities; no focal motor deficits Lymphatic: no cervical or axillary lymphadenopathy Results & Data Results & Data ([facility]) Vital Signs (Past 12 Hours) Vital Signs Temp Pulse Pulse Resp BP Pulse Ox 10/27/19 15:04 36.9 C 115 H 18 94/64 L 96 10/27/19 15:03 129 H 10/27/19 08:46 36.8 C 98 H 20 103/74 99 10/27/19 07:23 89 Medications Administered Current Inpatient Medications Acetaminophen (Tylenol) 650 mg PO Q4H PRN PRN Reason: Pain or Fever Stop: 11/23/19 20:04 Al Hydrox/Mg Hydrox/Simethicone (Maalox) 15 ml PO Q4H PRN PRN Reason: Dyspepsia Stop: 11/23/19 20:04 Ferrous Sulfate (Feosol) 325 mg PO BIDM [facility] Stop: 11/25/19 16:59 Last Admin: 10/27/19 08:03 Dose: 325 mg Documented by: Folic Acid (Folvite) 1 mg PO QAM [facility] Stop: 11/23/19 20:04 Last Admin: 10/27/19 08:03 Dose: 1 mg Documented by: Gabapentin (Neurontin) 400 mg PO TID [facility] Stop: 11/24/19 02:29 Last Admin: 10/27/19 14:54 Dose: Not Given Documented by: Heparin Sodium (Porcine) (Heparin Sod 100 Unit/Ml Flush) 5 ml FLUSH PRN PRN PRN Reason: Flush Stop: 11/24/19 03:02 Last Admin: 10/27/19 11:25 Dose: 5 ml Documented by: Lorazepam (Ativan) 1 mg in 2 mls @ 2 mls/min IV UD PRN; Protocol PRN Reason: EtOH Withdrawl AWSS Score 6,7 Stop: 11/23/19 23:51 Lorazepam (Ativan) 2 mg in 4 mls @ 4 mls/min IV UD PRN; Protocol PRN Reason: EtOH Withdrawl AWSS Score 8,9 Stop: 11/23/19 23:51 Last Admin: 10/25/19 00:48 Dose: 4 mls/min Documented by: Promethazine HCl 12.5 mg/ (Sodium Chloride) 50.5 mls @ 202 mls/hr IV Q6H PRN PRN Reason: Nausea And Vomiting Stop: 11/25/19 21:16 Last Infusion: 10/26/19 22:10 Dose: Infused Documented by: Levetiracetam (Keppra) 1,500 mg PO BID [facility] Stop: 11/23/19 20:59 Last Admin: 10/27/19 08:02 Dose: 1,500 mg Documented by: Lorazepam (Ativan) 0.5 mg PO Q6H PRN PRN Reason: Anxiety Stop: 11/26/19 08:23 Last Admin: 10/27/19 12:02 Dose: 0.5 mg Documented by: Magnesium Hydroxide (Milk Of Magnesia) 30 ml PO Q12H PRN PRN Reason: Constipation Stop: 11/23/19 20:04 Mupirocin (Bactroban 2%) 1 appln EXT BID [facility] Stop: 11/23/19 20:59 Last Admin: 10/27/19 08:03 Dose: 1 appln Documented by: Ondansetron HCl (Zofran) 4 mg IV Q6H PRN PRN Reason: Nausea Stop: 11/23/19 20:04 Last Admin: 10/26/19 05:15 Dose: 4 mg Documented by: Oxycodone HCl (Roxicodone Immediate Rel) 5 mg PO QID PRN PRN Reason: Pain Stop: 11/07/19 20:26 Last Admin: 10/27/19 08:05 Dose: 5 mg Documented by: Pantoprazole Sodium (Protonix) 40 mg PO BID [facility] Stop: 11/23/19 20:59 Last Admin: 10/27/19 08:02 Dose: 40 mg Documented by: Polyethylene Glycol (Miralax Powder Packet) 17 gm PO DAILY PRN PRN Reason: Constipation Stop: 11/23/19 20:04 Promethazine HCl (Phenergan) 12.5 mg PO Q6H PRN PRN Reason: Nausea And Vomiting Stop: 11/26/19 08:22 Last Admin: 10/27/19 12:02 Dose: 12.5 mg Documented by: Thiamine HCl (Vitamin B-1) 100 mg PO QAM [facility] Stop: 11/23/19 20:04 Last Admin: 10/27/19 08:03 Dose: 100 mg Documented by: Tramadol HCl (Ultram) 25 mg PO Q4H PRN PRN Reason: Pain Stop: 11/25/19 19:50 Last Admin: 10/26/19 20:44 Dose: 25 mg Documented by: Trazodone HCl (Desyrel) 50 mg PO HS PRN PRN Reason: Sleep Stop: 11/23/19 20:04 Last Admin: 10/26/19 22:09 Dose: 50 mg Documented by: (1) Chest pain Chest pain type: unspecified Qualified Code(s): R07.9 - Chest pain, unspecified (2) Fall Encounter type: initial encounter Qualified Code(s): W19.XXXA - Unspecified fall, initial encounter
[2019-10-27] MEDS: TRAMADOL HCL 50 MG TABLET PO PRN ×2 (16:51→21:50)
[2019-10-27] MEDS: ONDANSETRON INJ 2 MG/ML 2 ML VIAL IV PRN (16:52)
[2019-10-27] MEDS: TRAZODONE HCL 50 MG TAB PO PRN (21:51)
[2019-10-28] MEDS: PROMETHAZINE HCL 12.5 MG/10 ML UDP PO PRN ×3 (00:34→17:46)
[2019-10-28] MEDS: OXYCODONE HCL IR 5 MG TAB (IMMEDIATE RELEASE) PO PRN ×3 (05:38→23:51)
[2019-10-28 06:29] LABS: Basophils # (auto) 0.04 K/uL (0-0.2); Basophils % (auto) 0.8 %; Eosinophils # (auto) 1.34 K/uL (0-0.5); Eosinophils % (auto) 25.1 %; Hematocrit (blood only) 27.2 % (37-47); Hemoglobin 8.4 g/dL (12.0-16.0); Immature Granulocytes # (auto) 0.01 K/uL (0.00-0.02); Immature Granulocytes % (auto) 0.2 %; Lymphocytes # (auto) 1.25 K/uL (1.2-3.4); Lymphocytes % (auto) 23.5 %; Mean Corpuscular Hemoglobin 25.9 pg (25-34); Mean Corpuscular Hgb Conc 30.9 g/dL (32-36); Monocytes # (auto) 0.59 K/uL (0.11-0.59); Monocytes % (auto) 11.1 %; Neutrophils % (auto) 39.3 %; Platelet Count 324 K/uL (130-400); RDW Coefficient of Variation 19.4 % (11.5-14.5); RDW Standard Deviation 59.3 fL (36.4-46.3); Red Blood Count 3.24 M/uL (4.2-5.4); White Blood Count 5.33 K/uL (4.8-10.8)
[2019-10-28 07:01] LABS: BUN Creatinine Ratio 16.7 (10-20); Calcium 8.5 mg/dl (8.5-10.1); Creatinine Clr Calc Pharmacy 100.2 ml/min; Est GFR (African American) 124.6; Est GFR (Non-African American) 107.5; Magnesium 2.1 mg/dl (1.8-2.4); Potassium 4.2 mmol/L (3.5-5.1)
[2019-10-28] MEDS: FOLIC ACID 1 MG TAB PO SCH (08:02)
[2019-10-28] MEDS: LORazepam 0.5 MG TAB PO PRN ×3 (08:02→23:52)
[2019-10-28] MEDS: levETIRAcetam 500 MG TAB PO SCH ×2 (08:03→21:46)
[2019-10-28] MEDS: GABAPENTIN 400 MG CAP PO SCH ×3 (08:03→21:45)
[2019-10-28] MEDS: THIAMINE HCL 100 MG TAB PO SCH (08:03)
[2019-10-28] MEDS: MUPIROCIN 2% OINT 22 GM TUBE EXT SCH ×2 (08:04→21:45)
[2019-10-28] MEDS: PANTOprazole 40 MG TAB PO SCH ×2 (08:04→21:45)
[2019-10-28] MEDS: FERROUS SULFATE 325 MG TAB PO SCH ×2 (08:05→17:13)
[2019-10-28] MEDS ORDERED: ONDANSETRON 4 MG OD TAB PO PRN (14:04)
--- NOTE | 2019-10-28 15:37 | Hospitalist Progress Note ---
Date of Service October 28, 2019 Assessment & Plan (1) Ribs, multiple fractures: History of ambulatory dysfunction with frequent falls Status post fall 09/21 with left-sided rib fractures 6 through 10, seventh rib fracture in 2 places She was transferred to [facility] and has had chest tube placement She was admitted on of this month with increasing chest pain Chest pain likely refractory from rib fractures and atelectasis Encourage incentive spirometry Oxycodone PRN for pain Denies any significant pain Appreciate surgery input and taking of the chito Pain is reasonably controlled Medically stable to be discharged (2) Fall: As above likely secondary to ambulatory dysfunction (3) Chest pain: Admitted with chest pain With mild elevation of troponin of any clinical significance Chest pain is secondary to recent rib fracture Continue with current narcotic and nonnarcotic analgesics (4) Elevated troponin: As above (5) Suicidal ideation: Patient with report of suicidal ideation with multiple plans She feels as if she is a burden and no longer wants to be dependent on everybody Plans include walking out in front of traffic, injecting air bubbles into Mediport, or getting lost in the [place] on purpose Consult psychiatry -once medically cleared likely to require inpatient psych admission Suicide precautions, one-to-one Remains medically stable to be transferred to psychiatric floor Will be transferred to psychiatric floor tomorrow (6) Seizure disorder: Last known seizure many years ago, although what brought her to ED was metallic taste in mouth that was going up to her nose which she states "precedes a seizure" She has not been taking her gabapentin or Keppra for approximately 2 weeks She has actually stopped all of her medications for the past 2 weeks Will resume gabapentin and Keppra seizure precautions No more seizures while in the hospital We will continue to follow No more seizure activities (7) Von Willebrand disease: No s/sx of bleeding at this time monitor (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 (9) Depression: Psychiatry consulted Currently not taking any antidepressants Mood unstable given suicidal ideation Plan as above-continue current medication (10) Anxiety: We will continue with current antianxiety medications Admission and Anticipated Discharge Date Admission Date: October 25, 2019 Subjective The patient was seen and examined in medical telemetry unit He has significant past medical history including type II fall Willebrand's disease, seizure disorder, 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 Complains to have anxiety symptoms and some discomfort in right upper abdomen Has some nausea but no vomiting Still requiring one-to-one sitter 10/28/2019 The patient was seen and examined in medical telemetry unit She is still with one-to-one sitter Complains to have minimal nausea without vomiting Will discontinue any IV medications today as a plan to discharge her to mental health unit Review of Systems Review of Systems: All systems reviewed and are unremarkable except as noted below Constitutional: + weakness Cardiovascular: Additional Comments: Patient has left rib cage pain/discomfort, chronic from history of rib fractures Physical Exam Physical Exam: Lying in bed comfortably Constitutional: well developed, well nourished and + ill appearing; no acute distress Eyes: PERRL, conjunctivae normal, anicteric sclerae ENMT: external ear and nose normal, oropharynx normal Neck: trachea midline, no thyromegaly Respiratory: normal respiratory effort; no respiratory distress Auscultation: lungs clear to auscultation bilaterally Cardiovascular: Rate/Rhythm: regular rate and regular rhythm Heart Sounds: no murmur Gastrointestinal (Abdomen): Inspection/Auscultation: abdomen normal to inspection; abdomen not distended Musculoskeletal: No acute arthritis in any joints Neurologic: moves all extremities; no focal motor deficits Psychiatric: Orientation: alert and oriented x 3 Eye Contact: good eye contact Insight: good insight Judgement: good judgement Lymphatic: no cervical or axillary lymphadenopathy Results & Data Results & Data ([facility]) Vital Signs (Past 12 Hours) Vital Signs Temp Pulse Pulse Resp BP Pulse Ox 10/28/19 09:39 96 H 10/28/19 07:35 36.8 C 82 18 90/57 L 95 Laboratory Results Short CBC 10/28/19 Range/Units 05:55 WBC 5.33 (4.8-10.8) K/uL Hgb 8.4 L (12.0-16.0) g/dL Hct 27.2 L (37-47) % Plt Count 324 (130-400) K/uL BMP 10/28/19 05:55 Sodium 141 Potassium 4.2 Chloride 108 H Carbon Dioxide 29 BUN 10 D Creatinine 0.58 L Glucose 94 Calcium 8.5 Medications Administered Current Inpatient Medications Acetaminophen (Tylenol) 650 mg PO Q4H PRN PRN Reason: Pain or Fever Stop: 11/23/19 20:04 Al Hydrox/Mg Hydrox/Simethicone (Maalox) 15 ml PO Q4H PRN PRN Reason: Dyspepsia Stop: 11/23/19 20:04 Ferrous Sulfate (Feosol) 325 mg PO BIDM [facility] Stop: 11/25/19 16:59 Last Admin: 10/28/19 08:05 Dose: 325 mg Documented by: Folic Acid (Folvite) 1 mg PO QAM [facility] Stop: 11/23/19 20:04 Last Admin: 10/28/19 08:02 Dose: 1 mg Documented by: Gabapentin (Neurontin) 400 mg PO TID [facility] Stop: 11/24/19 02:29 Last Admin: 10/28/19 14:17 Dose: 400 mg Documented by: Heparin Sodium (Porcine) (Heparin Sod 100 Unit/Ml Flush) 5 ml FLUSH PRN PRN PRN Reason: Flush Stop: 11/24/19 03:02 Last Admin: 10/27/19 11:25 Dose: 5 ml Documented by: Promethazine HCl 12.5 mg/ (Sodium Chloride) 50.5 mls @ 202 mls/hr IV Q6H PRN PRN Reason: Nausea And Vomiting Stop: 11/25/19 21:16 Last Infusion: 10/26/19 22:10 Dose: Infused Documented by: Levetiracetam (Keppra) 1,500 mg PO BID [facility] Stop: 11/23/19 20:59 Last Admin: 10/28/19 08:03 Dose: 1,500 mg Documented by: Lorazepam (Ativan) 0.5 mg PO Q6H PRN PRN Reason: Anxiety Stop: 11/26/19 08:23 Last Admin: 10/28/19 08:02 Dose: 0.5 mg Documented by: Magnesium Hydroxide (Milk Of Magnesia) 30 ml PO Q12H PRN PRN Reason: Constipation Stop: 11/23/19 20:04 Mupirocin (Bactroban 2%) 1 appln EXT BID [facility] Stop: 11/23/19 20:59 Last Admin: 10/28/19 08:04 Dose: 1 appln Documented by: Ondansetron HCl (Zofran Odt) 4 mg PO Q6H PRN PRN Reason: Nausea Stop: 11/27/19 14:03 Oxycodone HCl (Roxicodone Immediate Rel) 5 mg PO QID PRN PRN Reason: Pain Stop: 11/07/19 20:26 Last Admin: 10/28/19 05:38 Dose: 5 mg Documented by: Pantoprazole Sodium (Protonix) 40 mg PO BID [facility] Stop: 11/23/19 20:59 Last Admin: 10/28/19 08:04 Dose: 40 mg Documented by: Polyethylene Glycol (Miralax Powder Packet) 17 gm PO DAILY PRN PRN Reason: Constipation Stop: 11/23/19 20:04 Promethazine HCl (Phenergan) 12.5 mg PO Q6H PRN PRN Reason: Nausea And Vomiting Stop: 11/26/19 08:22 Last Admin: 10/28/19 08:02 Dose: 12.5 mg Documented by: Thiamine HCl (Vitamin B-1) 100 mg PO QAM [facility] Stop: 11/23/19 20:04 Last Admin: 10/28/19 08:03 Dose: 100 mg Documented by: Tramadol HCl (Ultram) 25 mg PO Q4H PRN PRN Reason: Pain Stop: 11/25/19 19:50 Last Admin: 10/27/19 21:50 Dose: 25 mg Documented by: Trazodone HCl (Desyrel) 50 mg PO HS PRN PRN Reason: Sleep Stop: 11/23/19 20:04 Last Admin: 10/27/19 21:51 Dose: 50 mg Documented by: (1) Fall Encounter type: initial encounter Qualified Code(s): W19.XXXA - Unspecified fall, initial encounter (2) Chest pain Chest pain type: unspecified Qualified Code(s): R07.9 - Chest pain, unspecified
[2019-10-28] MEDS: TRAZODONE HCL 50 MG TAB PO PRN (23:52)
[2019-10-29] MEDS: OXYCODONE HCL IR 5 MG TAB (IMMEDIATE RELEASE) PO PRN ×2 (08:21→16:08)
[2019-10-29] MEDS: PANTOprazole 40 MG TAB PO SCH (08:22)
[2019-10-29] MEDS: levETIRAcetam 500 MG TAB PO SCH (08:22)
[2019-10-29] MEDS: THIAMINE HCL 100 MG TAB PO SCH (08:22)
[2019-10-29] MEDS: FERROUS SULFATE 325 MG TAB PO SCH (08:23)
[2019-10-29] MEDS: FOLIC ACID 1 MG TAB PO SCH (08:23)
[2019-10-29] MEDS: MUPIROCIN 2% OINT 22 GM TUBE EXT SCH (08:23)
[2019-10-29] MEDS: GABAPENTIN 400 MG CAP PO SCH ×2 (08:23→16:08)
[2019-10-29] MEDS: PROMETHAZINE HCL 12.5 MG/10 ML UDP PO PRN (08:24)
[2019-10-29] MEDS: LORazepam 0.5 MG TAB PO PRN (08:24)
--- NOTE | 2019-10-29 12:51 | Hospitalist Progress Note ---
Date of Service October 29, 2019 Assessment & Plan (1) Ribs, multiple fractures: History of ambulatory dysfunction with frequent falls Status post fall 09/21 with left-sided rib fractures 6 through 10, seventh rib fracture in 2 places She was transferred to [facility] and has had chest tube placement She was admitted on of this month with increasing chest pain Chest pain likely refractory from rib fractures and atelectasis Encourage incentive spirometry Oxycodone PRN for pain Appreciate surgery input and taking of the chito Pain is reasonably controlled Medically stable to be discharged Remains stable without any symptoms (2) Fall: As above likely secondary to ambulatory dysfunction (3) Chest pain: Admitted with chest pain With mild elevation of troponin of any clinical significance Chest pain is secondary to recent rib fracture Continue with current narcotic and nonnarcotic analgesics Chest pain has been minimal (4) Elevated troponin: As above (5) Suicidal ideation: Patient with report of suicidal ideation with multiple plans She feels as if she is a burden and no longer wants to be dependent on everybody Plans include walking out in front of traffic, injecting air bubbles into Mediport, or getting lost in the [place] on purpose Consult psychiatry -once medically cleared likely to require inpatient psych admission Suicide precautions, one-to-one Remains medically stable to be transferred to psychiatric floor (6) Seizure disorder: Last known seizure many years ago, although what brought her to ED was metallic taste in mouth that was going up to her nose which she states "precedes a seizure" She has not been taking her gabapentin or Keppra for approximately 2 weeks She has actually stopped all of her medications for the past 2 weeks Will resume gabapentin and Keppra seizure precautions No more seizures while in the hospital We will continue to follow No more seizure activities (7) Von Willebrand disease: No s/sx of bleeding at this time monitor (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 (9) Depression: Psychiatry consulted Currently not taking any antidepressants Mood unstable given suicidal ideation Plan as above-continue current medication (10) Anxiety: We will continue with current antianxiety medications Admission and Anticipated Discharge Date Admission Date: October 25, 2019 Subjective The patient was seen and examined in medical telemetry unit He has significant past medical history including type II fall Willebrand's disease, seizure disorder, 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 Complains to have anxiety symptoms and some discomfort in right upper abdomen Has some nausea but no vomiting Still requiring one-to-one sitter 10/28/2019 The patient was seen and examined in medical telemetry unit She is still with one-to-one sitter Complains to have minimal nausea without vomiting Will discontinue any IV medications today as a plan to discharge her to mental health unit 10/29/2019 The patient was seen and examined in medical telemetry unit She has been stable and denies any significant pain except some pain in the left lateral chest wall at the site of the chito removal Did not require any IV medications for the last 24 hours Medically stable to be transferred to psychiatric floor Review of Systems Review of Systems: All systems reviewed and are unremarkable except as noted below Constitutional: + weakness Cardiovascular: Additional Comments: Patient has left rib cage pain/discomfort, chronic from history of rib fractures Physical Exam Physical Exam: Lying in bed comfortably Constitutional: well developed and well nourished; no acute distress and not ill appearing Eyes: PERRL, conjunctivae normal, anicteric sclerae ENMT: external ear and nose normal, oropharynx normal Neck: trachea midline, no thyromegaly Respiratory: normal respiratory effort; no respiratory distress Auscultation: + diminished lung sounds (Especially left lung) Cardiovascular: Rate/Rhythm: regular rate and regular rhythm Heart Sounds: no murmur Gastrointestinal (Abdomen): Inspection/Auscultation: abdomen normal to inspection; abdomen not distended Musculoskeletal: No acute arthritis involving any joints Neurologic: moves all extremities; no focal motor deficits Psychiatric: Orientation: alert and oriented x 3 Eye Contact: good eye contact Insight: good insight Judgement: good judgement Admitted with s uicidal ideation Lymphatic: no cervical or axillary lymphadenopathy Results & Data Results & Data ([facility]) Vital Signs (Past 12 Hours) Vital Signs Temp Pulse Pulse Resp BP Pulse Ox 10/29/19 10:58 36.7 C 109 H 20 101/70 97 10/29/19 08:17 36.8 C 102 H 20 108/80 94 10/29/19 07:49 94 H 10/29/19 01:11 114 H Medications Administered Current Inpatient Medications Acetaminophen (Tylenol) 650 mg PO Q4H PRN PRN Reason: Pain or Fever Stop: 11/23/19 20:04 Al Hydrox/Mg Hydrox/Simethicone (Maalox) 15 ml PO Q4H PRN PRN Reason: Dyspepsia Stop: 11/23/19 20:04 Ferrous Sulfate (Feosol) 325 mg PO BIDM [facility] Stop: 11/25/19 16:59 Last Admin: 10/29/19 08:23 Dose: 325 mg Documented by: Folic Acid (Folvite) 1 mg PO QAM [facility] Stop: 11/23/19 20:04 Last Admin: 10/29/19 08:23 Dose: 1 mg Documented by: Gabapentin (Neurontin) 400 mg PO TID [facility] Stop: 11/24/19 02:29 Last Admin: 10/29/19 08:23 Dose: 400 mg Documented by: Heparin Sodium (Porcine) (Heparin Sod 100 Unit/Ml Flush) 5 ml FLUSH PRN PRN PRN Reason: Flush Stop: 11/24/19 03:02 Last Admin: 10/27/19 11:25 Dose: 5 ml Documented by: Promethazine HCl 12.5 mg/ (Sodium Chloride) 50.5 mls @ 202 mls/hr IV Q6H PRN PRN Reason: Nausea And Vomiting Stop: 11/25/19 21:16 Last Infusion: 10/26/19 22:10 Dose: Infused Documented by: Levetiracetam (Keppra) 1,500 mg PO BID [facility] Stop: 11/23/19 20:59 Last Admin: 10/29/19 08:22 Dose: 1,500 mg Documented by: Lorazepam (Ativan) 0.5 mg PO Q6H PRN PRN Reason: Anxiety Stop: 11/26/19 08:23 Last Admin: 10/29/19 08:24 Dose: 0.5 mg Documented by: Magnesium Hydroxide (Milk Of Magnesia) 30 ml PO Q12H PRN PRN Reason: Constipation Stop: 11/23/19 20:04 Mupirocin (Bactroban 2%) 1 appln EXT BID [facility] Stop: 11/23/19 20:59 Last Admin: 10/29/19 08:23 Dose: 1 appln Documented by: Ondansetron HCl (Zofran Odt) 4 mg PO Q6H PRN PRN Reason: Nausea Stop: 11/27/19 14:03 Oxycodone HCl (Roxicodone Immediate Rel) 5 mg PO QID PRN PRN Reason: Pain Stop: 11/07/19 20:26 Last Admin: 10/29/19 08:21 Dose: 5 mg Documented by: Pantoprazole Sodium (Protonix) 40 mg PO BID [facility] Stop: 11/23/19 20:59 Last Admin: 10/29/19 08:22 Dose: 40 mg Documented by: Polyethylene Glycol (Miralax Powder Packet) 17 gm PO DAILY PRN PRN Reason: Constipation Stop: 11/23/19 20:04 Promethazine HCl (Phenergan) 12.5 mg PO Q6H PRN PRN Reason: Nausea And Vomiting Stop: 11/26/19 08:22 Last Admin: 10/29/19 08:24 Dose: 12.5 mg Documented by: Thiamine HCl (Vitamin B-1) 100 mg PO QAM [facility] Stop: 11/23/19 20:04 Last Admin: 10/29/19 08:22 Dose: 100 mg Documented by: Tramadol HCl (Ultram) 25 mg PO Q4H PRN PRN Reason: Pain Stop: 11/25/19 19:50 Last Admin: 10/27/19 21:50 Dose: 25 mg Documented by: Trazodone HCl (Desyrel) 50 mg PO HS PRN PRN Reason: Sleep Stop: 11/23/19 20:04 Last Admin: 10/28/19 23:52 Dose: 50 mg Documented by: (1) Chest pain Chest pain type: unspecified Qualified Code(s): R07.9 - Chest pain, unspecified (2) Fall Encounter type: initial encounter Qualified Code(s): W19.XXXA - Unspecified fall, initial encounter
--- NOTE | 2019-10-29 13:32 | Psychiatric Progress Note ---
Date of Service October 29, 2019 Impression / Recommendations Impression Dr. Liborio Munroe was directly involved in review and discussion of the patient's case and participated in medical decision making regarding treatment recommendations. RECOMMENDATIONS: 10/24 - Pt does admit to depressive symptoms for greater than 6 months, and would benefit from psychiatric treatment. She is willing to consider therapy as well as medication options to target mood. - Pt does endorse suicidal ideation for the past 2 months, verbalizing numerous plans to: cut herself and bleed out (heightened concern due to clotting disorder), injecting bubbles into her Mediport, or "getting lost in the [place]". It is patient's perception that she has limited supports and states "I definitely could do it." 302 petitioning statement initiated if necessary; however, patient is willing to consider psychiatric admission or allowing attempt to safety plan. Will continue to follow patient during her medical admission to determine ultimate recommendation at time of medical clearance. - Will attempt to gather collateral information from patient's supports to determine if they have safety concerns related to patient's presentation - Due to reported nausea will refrain from initiating new medication immediately; however, patient verbalizes willingness to trial antidepressant medication. When able to tolerate trial of a new medication, would consider mirtazapine ODT 7.5mg qHS with titration as tolerated. Pt's diagnosis of Von Willebrand disease increases concern for bleed risk associated with antidepressant medications. Research shows non-SSRI options are recommended in these cases, and patient may benefit from the ODT option due to frequent episodes of nausea. Would suggest slow titration and close observation given patient's medical concerns; in particular we will need to watch for over- sedation, as patient already has history of falls. - Will attempt to initiate referrals for outpatient psychiatric treatment. Reference: Ashley Vega. Influence of antidepressants on hemostasis. Dialogues Clin Neurosci. 2007;9(1):47-59. 10/28 - Re-evaluated patient after several days of treatment on the medical floor. Pt reporting resolution of SI and improvement in mood at this time. She is requesting discharge home. - Psychiatric liaison has coordinated referrals for [facility], and patient is planning to return to her PCP in the interim. If PCP is comfortable, mirtazapine ODT 7.5mg could be initiated in the interim in order to target mood, anxiety, and insomnia. - At this point in time, inpatient psychiatric treatment is not being recommended. Pt is denying SI, is future oriented in conversation, has permitted communication with outpatient supports (son), was agreeable with referral for outpatient psychiatric treatment, and is able to contract for safety in the outpatient setting. Son verbalized concern about patient's continued alcohol use, but denied safety concerns related to the patient's safety if discharged. Based on this, there is no criteria for an involuntary psychiatric commitment and patient is declining admission. Discharge recommendations communicated to primary team. - Documentation from our service's involvement will be faxed to patient's PCP for coordination of care. (1) Suicidal ideation: - reported to be resolved (2) Von Willebrand disease: (3) Seizure disorder: Risk Factors Assessment Do You Have Access To A Gun?: No Protective Factors Assessment Employed: No Interval History Identifying Information 49-year-old female admitted medically on 10/24/2019 for medical work-up related to chest pain. Pt verbalized SI in the ED with multiple plans. Psychiatric consultation requested to evaluate patient for suicidality. Initial consult completed on 10/25/2019 and patient has permitted attempts to safety plan in the interim. Seen today for follow-up. Chief Complaint "Um, better. The pain is kind of changing a little bit." Review of Systems Notes Constitutional: reports generalized pain Cardiovascular: denied Respiratory: reports some pain when taking a deep breath Gastrointestinal: reports improvement in nausea Neurological: denied Psychiatric: denies symptoms other than stated above Total of at least 10 systems reviewed, pertinent positives as above and in HPI. Subjective Subjective Patient's case was reviewed and discussed during morning report with psychiatric nurse liaison and supervising psychiatrist. Updates discussed with psychiatric team throughout the morning as attempts were being made to communicate with outpatient supports and coordinate safety planning. Pt was agreeable with referral for outpatient psychiatric treatment through the [facility] system, communication with her son, and coordination with her PCP. See psychiatric nurse liaison notes for summary of safety planning efforts and phone communication. Pt was seen today to assess progress since admission. She states that she is feeling "better" physically, but does admit to ongoing pain. Pt does feel that a lot of this is related to being in bed for prolonged period of time. She admits to resolution of SI, and is able to contract for safety at home. She does admit to "getting lonely sometimes", but is able to verbalize support of a neighbor and was updated that her son and daughter continue to be willing to offer support. Pt continues to be future oriented in conversation. We did discuss treatment recommendations, and patient continues to be willing to follow-up with psychiatry and therapy through the [facility]. We did discuss her history of alcohol use, with patient seemingly minimizing concerns. She reports consuming 1 bottle of wine in 2 days, estimating she drinks 1-2 glasses of wine roughly 3-4 days per week. We did discuss depressant effects of alcohol and concern that adverse effects of benzodiazepines can be amplified when also consuming alcohol. At this time, patient is not concerned about her alcohol use but states she has been paying attention to it as "my dad was a raging alcoholic, and I definitely don't want to get to that point." Pt was encouraged to discuss this as needed with her PCP or outpatient psychiatrist, which she was agreeable with. Pt denied desire for outpatient D&A treatment at this time. She denies other needs or concerns from our service at this time and is requested to be dicharged home. Physical Exam Psychiatric Orientation: alert, oriented x 3 and cooperative (and pleasant) Apperance: appropriately dressed, appropriately groomed and appeared stated age initially wearing sunglasses, removes these for our conversation Eye Contact: + fair eye contact Motor Behavior: no abnormal motor movements (observed while laying in bed) Speech: normal rate/rhythm/volume of speech Affect: + blunted affect (but appearing brighter today) Mood: + depressed mood ("better, it's definitely better - I just get lonely sometimes") and + anxious mood seemingly productive anxiety related to need to coordinate with pharmacy and a ride home Thought Process: goal directed thought process, clear/coherent thought process and thought association intact Thought Content: + preoccupation (somatically preoccupied, continuing to report pain), reality based without delusions and + loneliness; no hopelessness Suicidal Thoughts: denies suicidal thoughts, denies suicidal plan and denies suicidal intent Homicidal Thoughts: denies homicidal thoughts Hallucinations: no auditory hallucinations and no visual hallucinations Cognition: attention grossly intact and language grossly intact Estimated Intelligence: consistent with education level Insight: + fair insight Judgement: + fair judgement Vital Signs (Past 24 Hours) Last Vital Signs Temp 36.7 C 10/29/19 10:58 Pulse 109 H 10/29/19 10:58 Resp 20 06/26/20 10:58 BP 101/70 10/29/19 10:58 Pulse Ox 97 10/29/19 10:58 Results & Data ([facility]) Laboratory Results Laboratory Results - last 24 hr 10/28/19 13:20 Stool Occult Bld Scrn Negative Current Inpatient Medications Current Inpatient Medications: Current Inpatient Medications Acetaminophen (Tylenol) 650 mg PO Q4H PRN PRN Reason: Pain or Fever Stop: 11/23/19 20:04 Al Hydrox/Mg Hydrox/Simethicone (Maalox) 15 ml PO Q4H PRN PRN Reason: Dyspepsia Stop: 11/23/19 20:04 Ferrous Sulfate (Feosol) 325 mg PO [facility]M [facility] Stop: 11/25/19 16:59 Last Admin: 10/29/19 08:23 Dose: 325 mg Documented by: Folic Acid (Folvite) 1 mg PO QAM [facility] Stop: 11/23/19 20:04 Last Admin: 10/29/19 08:23 Dose: 1 mg Documented by: Gabapentin (Neurontin) 400 mg PO TID [facility] Stop: 11/24/19 02:29 Last Admin: 10/29/19 08:23 Dose: 400 mg Documented by: Heparin Sodium (Porcine) (Heparin Sod 100 Unit/Ml Flush) 5 ml FLUSH PRN PRN PRN Reason: Flush Stop: 11/24/19 03:02 Last Admin: 10/27/19 11:25 Dose: 5 ml Documented by: Promethazine HCl 12.5 mg/ (Sodium Chloride) 50.5 mls @ 202 mls/hr IV Q6H PRN PRN Reason: Nausea And Vomiting Stop: 11/25/19 21:16 Last Infusion: 10/26/19 22:10 Dose: Infused Documented by: Levetiracetam (Keppra) 1,500 mg PO BID [facility] Stop: 11/23/19 20:59 Last Admin: 10/29/19 08:22 Dose: 1,500 mg Documented by: Lorazepam (Ativan) 0.5 mg PO Q6H PRN PRN Reason: Anxiety Stop: 11/26/19 08:23 Last Admin: 10/29/19 08:24 Dose: 0.5 mg Documented by: Magnesium Hydroxide (Milk Of Magnesia) 30 ml PO Q12H PRN PRN Reason: Constipation Stop: 11/23/19 20:04 Mupirocin (Bactroban 2%) 1 appln EXT BID [facility] Stop: 11/23/19 20:59 Last Admin: 10/29/19 08:23 Dose: 1 appln Documented by: Ondansetron HCl (Zofran Odt) 4 mg PO Q6H PRN PRN Reason: Nausea Stop: 11/27/19 14:03 Oxycodone HCl (Roxicodone Immediate Rel) 5 mg PO QID PRN PRN Reason: Pain Stop: 11/07/19 20:26 Last Admin: 10/29/19 08:21 Dose: 5 mg Documented by: Pantoprazole Sodium (Protonix) 40 mg PO BID [facility] Stop: 11/23/19 20:59 Last Admin: 10/29/19 08:22 Dose: 40 mg Documented by: Polyethylene Glycol (Miralax Powder Packet) 17 gm PO DAILY PRN PRN Reason: Constipation Stop: 11/23/19 20:04 Promethazine HCl (Phenergan) 12.5 mg PO Q6H PRN PRN Reason: Nausea And Vomiting Stop: 11/26/19 08:22 Last Admin: 10/29/19 08:24 Dose: 12.5 mg Documented by: Thiamine HCl (Vitamin B-1) 100 mg PO QAM [facility] Stop: 11/23/19 20:04 Last Admin: 10/29/19 08:22 Dose: 100 mg Documented by: Tramadol HCl (Ultram) 25 mg PO Q4H PRN PRN Reason: Pain Stop: 11/25/19 19:50 Last Admin: 10/27/19 21:50 Dose: 25 mg Documented by: Trazodone HCl (Desyrel) 50 mg PO HS PRN PRN Reason: Sleep Stop: 11/23/19 20:04 Last Admin: 10/28/19 23:52 Dose: 50 mg Documented by: Mental Health & Subst Abuse Tx Psychiatrist Name of Psychiatrist: Referral placed for Psychiatry through [facility] Therapist Name of Therapist: Referral placed for Therapy through [facility] Post Discharge Appointments Primary Care Physician Name Of Family Doctor: Dr. Bae @[facility]
[2019-10-29] MEDS: HEPARIN 100 UNIT/ML 5ML FLUSH FLUSH PRN (15:43)
--- NOTE | 2019-10-30 08:11 | Discharge Summary ---
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 Of significance patient was recently seen in [facility] ED 09/22/2019 after sustaining a fall out of bed with associated alcohol use. Subsequently she suffered multiple left-sided rib fractures 6 through 10, seventh fractured in 2 places, large left-sided pneumothorax, small hemothorax requiring left chest tube placement with 50 to 60 mL of blood withdrawn. Given the trauma event she was then transferred to [facility] for further care. I do not have access to those records at this time. She comes to see us today complaining of left-sided chest wall pain. Pain is constant, waxes and wanes in severity, worsened with deep inspiration, improved with rest and guarding, dizziness, frequent falls, metallic taste in mouth that sometimes proceeds seizures. She still has chito in place where prior chest tube was placed as well as dressing. She is unsure when stable or to come out as she states, "I could not read my discharge paperwork I am blind." She does elicit to frequent falls over the past several weeks, but does not attribute this to her blindness. Also complains of dizziness, instability, nausea, shortness with exertion, intermittent abdominal pain, off and on diarrhea depending on diet and generalized malaise. She currently denies any fever, chills, sweats, syncope, palpitations, hemoptysis, cough, hematemesis, melena, medic easier, dysuria, increased urgency or frequency with urination. She also states that she is, "sick of being a burden." She is mostly dependent on family and is upset by this. She states if she could hurt herself she would. She does have active suicidal ideations and has a plan in place including walking out in front of traffic, injecting air into her Mediport, or climbing up to a mountain and getting lost on purpose. She denies any homicidal ideation. In ED patient remained hemodynamically stable although she did have sinus tachycardia with rates in the low 100s. Lab work notable for H&H 8.7 and 28.6, platelet 403, K3.8, BUN 8, creatinine 0.58, glucose 84, trop 0.056, albumin 2.7, pro Mason WNL, alcohol and tox screen negative. Chest x-ray reveals no recurrent residual pneumothorax, small left pleural effusion with left basilar opacity likely representing atelectasis, subacute left-sided rib fractures similar to in appearance to prior imaging. In ED she did have repeat troponin which decreased to 0.048. She does have prior history of elevated troponin. In ED she received IVF, Compazine, morphine and Phenergan with minimal relief. Admission Exam Per Admitting Provider Physical Exam: Constitutional: Thin, petite, female, with sunglasses in place, vitals as above, NAD, sitting up in bed, answers questions appropriately Head: Normocephalic, Atraumatic Eyes: Refuses to take sunglasses off to examine ENMT: external ear and nose normal, oropharynx normal Neck: trachea midline, no thyromegaly normal visual inspection Respiratory: normal respiratory effort, pain with inspiration, lungs clear to auscultation, no wheeze, rales, rhonchi. Normal insp/exp effort, no accessory muscle use Cardiovascular: RRR, no murmur, no edema Vessels: no JVD or carotid bruit Chest: Left lateral and posterior chest wall dressing in place, left lateral chest wall chito intact with mild surrounding erythema and purulence, pain to palpation left lateral chest wall Abdomen: normal bowel sounds, soft, nontender, no hepatosplenomegaly Musculoskeletal: no cyanosis or clubbing, extremities motor strength 5/5 Skin: no rashes, warm and dry normal turgor Neurologic: PERRL, EOMI, accommodation nl, no face palsy, no dysarthria CN's II-XI intact bilaterally and moves all extremities Psychiatric: A+Ox3, euthymic affect Lymphatic: no cervical or axillary lymphadenopathy : deferred Principal Diagnosis Left-sided rib fractures 6 through 10 secondary to fall, chest pain, seizure disorder, von Willebrand disease, suicidal ideation-resolved Discharge Exam Constitutional well developed and well nourished; no acute distress and not ill appearing Eyes PERRL, conjunctivae normal, anicteric sclerae ENMT external ear and nose normal, oropharynx normal Neck trachea midline, no thyromegaly Respiratory normal respiratory effort; no respiratory distress Auscultation: + diminished lung sounds (Especially left lung) Cardiovascular Rate/Rhythm: regular rate and regular rhythm Heart Sounds: no murmur Gastrointestinal (Abdomen) Inspection/Auscultation: abdomen normal to inspection; abdomen not distended Neurologic moves all extremities; no focal motor deficits Psychiatric Orientation: alert and oriented x 3 Eye Contact: good eye contact Insight: good insight Judgement: good judgement Lymphatic no cervical or axillary lymphadenopathy Discharge Data Allergies Allergy/AdvReac Type Severity Reaction Status Date / Time iron dextran complex Allergy Severe SOB, heart Verified 09/22/19 22:58 racing (see comments) cat dander Allergy Intermediate eye Verified 09/22/19 22:58 watering ceftriaxone Allergy Intermediate Hives Verified 09/22/19 22:58 ciprofloxacin Allergy Intermediate lips Verified 09/22/19 22:58 burning/peeling doxycycline Allergy Intermediate hives, Verified 09/22/19 22:58 vomiting latex Allergy Intermediate mouth Verified 09/22/19 22:58 hives/burning sensation Penicillins Allergy Intermediate Hives Verified 09/22/19 22:58 Quinolones Allergy Intermediate Hives Verified 09/22/19 22:58 Sulfa (Sulfonamide Allergy Intermediate hives Verified 09/22/19 22:58 Antibiotics) Aminoglycosides Allergy Unknown unknown Verified 09/22/19 22:58 reaction tobramycin AdvReac Severe blindness Verified 09/22/19 22:58 lactose AdvReac Intermediate nausea, GI Verified 09/22/19 22:58 upset citalopram AdvReac Mild restlessnes Verified 09/22/19 22:58 s Ferric Oxide Allergy Intermediate hives (see Uncoded 09/22/19 22:58 comments) Consultations 10/24/19 17:04 ED Decision to Admit Stat 10/24/19 20:05 Consult Case Management - Discharge Planning Routine Consult Psychiatry Routine 10/26/19 11:04 Consult General Surgery Routine Hospital Course (1) Ribs, multiple fractures: History of ambulatory dysfunction with frequent falls Status post fall 09/21 with left-sided rib fractures 6 through 10, seventh rib fracture in 2 places She was transferred to [facility] and has had chest tube placement She was admitted on of this month with increasing chest pain Chest pain likely refractory from rib fractures and atelectasis Encourage incentive spirometry Oxycodone PRN for pain Appreciate surgery input and taking of the chito Pain is reasonably controlled Medically stable to be discharged Remains stable without any symptoms (2) Fall: As above likely secondary to ambulatory dysfunction (3) Chest pain: Admitted with chest pain With mild elevation of troponin of any clinical significance Chest pain is secondary to recent rib fracture Continue with current narcotic and nonnarcotic analgesics Chest pain has been minimal (4) Elevated troponin: As above (5) Suicidal ideation: Patient with report of suicidal ideation with multiple plans She feels as if she is a burden and no longer wants to be dependent on everybody Plans include walking out in front of traffic, injecting air bubbles into Mediport, or getting lost in the [place] on purpose Consult psychiatry -once medically cleared likely to require inpatient psych admission Suicide precautions, one-to-one Remains medically stable to be transferred to psychiatric floor (6) Seizure disorder: Last known seizure many years ago, although what brought her to ED was metallic taste in mouth that was going up to her nose which she states "precedes a seizure" She has not been taking her gabapentin or Keppra for approximately 2 weeks She has actually stopped all of her medications for the past 2 weeks Will resume gabapentin and Keppra seizure precautions No more seizures while in the hospital We will continue to follow No more seizure activities (7) Von Willebrand disease: No s/sx of bleeding at this time monitor (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 (9) Depression: Psychiatry consulted Currently not taking any antidepressants Mood unstable given suicidal ideation Plan as above-continue current medication (10) Anxiety: We will continue with current antianxiety medications Total Time Total Time Spent Total Time Spent (In Minutes): 35 minutes Total Time Includes: Examination of the Patient, Discharge Planning, Medication Reconciliation and Communication With Other Providers Discharge Plan Discharge Items Patient Disposition: Home - Self-Care Reason For Visit: CHEST PAIN Discharge Diagnosis: Left-sided rib fractures 6 through 10 secondary to fall, chest pain, seizure disorder, von Willebrand disease, suicidal ideation-resolved Condition on Discharge: Fair Activity: Resume your previous activity Non-emergency contact: Primary Care Provider Call non-emergency contact if: you have any medication questions and your symptoms worsen Follow-up/Referrals: Jaspal Bae MD [Primary Care Provider] - 11/08/19 11:00 am (11/08/2019 11:00 AM Provider Jaspal Bae III, MD Department Family Practice [facility] ) Diet: Regular Addtl Attending Provider Instructions: Please take precaution to avoid falls Please keep appointments with your doctors as advised Pending Studies at Discharge: No Stand-Alone Forms: My [facility], Smoking Cessation Medications and DC Order Prescriptions: New promethazine 25 mg suppository 25 mg HI Q6H PRN (Reason: nausea) Qty: 12 RF: 0 lorazepam 0.5 mg Tablet 0.5 mg PO Q6H PRN (Reason: agitation) 3 Days Qty: 10 RF: 0 thiamine HCl (vitamin B1) [Vitamin B-1] 100 mg Tablet 100 mg PO QAM 30 Days Qty: 30 RF: 0 folic acid 1 mg Tablet 1 mg PO QAM 30 Days Qty: 30 RF: 0 Continued trazodone 50 mg Tablet 50 mg PO HS PRN (Reason: Sleep) RF: 0 levetiracetam [Keppra] 500 mg tablet 1,500 mg PO BID RF: 0 gabapentin 400 mg capsule 400 mg PO TID RF: 0 Forteo 20 mcg/dose - 600 mcg/2.4 mL Pen Injector 20 mcg SUBCUT DAILY RF: 0 furosemide 40 mg tablet 40 mg PO QAM RF: 0 montelukast 10 mg tablet 10 mg PO DAILY RF: 0 promethazine 25 mg tablet 25 mg PO TIDM PRN (Reason: Nausea And Vomiting) 10 Days Qty: 30 RF: 0 oxycodone 5 mg tablet 5 mg PO QID PRN (Reason: Pain) 3 Days Qty: 10 RF: 0 cyclobenzaprine 5 mg tablet 5 mg PO TID PRN (Reason: Muscle Spasm) RF: 0 pantoprazole [Protonix] 40 mg tablet,delayed release (DR/EC) 40 mg PO BID RF: 0 potassium chloride [Klor-Con M10] 10 mEq tablet,ER particles/crystals 20 meq PO QAM RF: 0 cholecalciferol (vitamin D3) [Vitamin D3] 125 mcg (5,000 unit) Tablet 5,000 unit PO QAM RF: 0 fexofenadine [Maame Allergy] 180 mg Tablet 180 mg PO DAILY RF: 0 Discontinued lorazepam [Ativan] 1 mg tablet 1 mg PO Q8H PRN (Reason: Anxiety) RF: 0 Discharge Orders: Discharge Order (Routine); Ordered 10/29/19 Ordered By: Mary Zhang Admission Data Admit Date/Time: 10/25/19 19:23 Attending Provider: Mary Zhang Admit Provider: Jesus Katz Primary Care Provider: Jaspal Bae Other Providers: Jesus Katz ; Matilde Delgado ; Jessica Millard ; Keny Donohue Other Interventions: Discharge Summary Assessment (RN) Last Done: 10/29/19 15:38 DC Date/Time DO NOT enter until pt leaves facility: 10/29/19 16:23
== END 2019-10-29 16:23 | disposition home or self-care (01) | DRG 184 ==
LOC: ED 09:25 → 2W 09:25 → SUATTDRO 17:34 → 2W 18:57 → SUATTDRO 10-25 19:23

== ENCOUNTER 2020-09-01 13:23 | Inpatient (IN) ==
[~2020-09-01 13:23] MED LIST changes: -ALBU1AER9 INH; -ATV/1 PO; -CYAN3INJ IM; -CYCL5TAB PO; -ELET40TA PO; -ERGO500037 PO; -FEXO1TAB46 PO; -FURO-85 PO; -PANT40TA PO; -POTA10TA32 PO; -PROM25TA16 PO; +SODIUM CHLORIDE 0.9% 1000ML 1,000 ML IV SCH; -TEMA30CA4 PO; -TRAM-453 PO; -ZOLE5INJ IV; -ZOLP12.5 PO; -[UNRECOGNIZED DRUG - CODE] PO; -[UNRECOGNIZED DRUG - SUPPLY] IVF
[2020-09-01] MEDS ORDERED: MoRPHine SULFATE 2 MG/ML CARP IV STA ×2 (13:36→23:13)
[2020-09-01] MEDS ORDERED: ONDANSETRON INJ 2 MG/ML 2 ML VIAL IV STA (13:36)
--- NOTE | 2020-09-01 13:48 | Emergency Department Note ---
History of Present Illness General Chief complaint: Hip Pain Stated complaint: hip pain Time Seen by Provider: 09/01/20 13:30 Source: patient History of Present Illness Provider complaint: Right hip pain Onset (ago): hour(s) Location: hip and right Severity: moderate Pain Consistency: + constant Quality: + sharp Exacerbated By: + movement Associated symptoms: + headaches; no chest pain, no cough, no fever/chills, no nausea/vomiting, no seizure, no shortness of breath and no syncope This is a 50-year-old female who presents after a fall at 2:30 AM. She was at a friend's house because he has cable TV. She is blind but she can see some shapes with the right eye. She states that she tripped next to the sofa at 2:30 AM. She landed on her right side hurting her hip and her shoulder. She does not believe she hit her head or hurt her neck but she does complain of headache. She felt okay and did not come in for evaluation but when she try to get up earlier today she could not put any weight on her right hip and so she called an ambulance. She has sharp pain to the right hip. It is worse with weightbearing. She denies any associated numbness or weakness to her legs. She also complains of right shoulder pain, wrist and hand pain. She denies any recent illness, fever, chest pain, shortness of breath, abdominal pain, vomiting, diarrhea or urinary symptoms. Home Medications Medication Instructions Recorded Confirmed Type pantoprazole [Protonix] 40 mg PO BID 01/29/18 09/01/20 History levetiracetam [Keppra] 1,500 mg PO BID 07/07/18 09/01/20 History gabapentin 400 mg PO TID 11/18/18 09/01/20 History fexofenadine [Maame Allergy] 180 mg PO DAILY 09/22/19 09/01/20 History montelukast 10 mg PO DAILY 10/24/19 09/01/20 History lorazepam 1 mg PO Q8H PRN 04/12/20 09/01/20 History sertraline 50 mg PO DAILY 07/07/20 09/01/20 History trazodone 50 mg PO HS 07/07/20 09/01/20 History cyclobenzaprine 10 mg PO TID PRN 09/01/20 09/01/20 History lidocaine 1 patch TOPICAL BID PRN 09/01/20 09/01/20 History promethazine 25 mg PO QID PRN 09/01/20 09/01/20 History Allergies Allergy/AdvReac Type Severity Reaction Status Date / Time iron dextran complex Allergy Severe SOB, heart Verified 09/01/20 15:15 racing (see comments) cat dander Allergy Intermediate eye Verified 09/01/20 15:15 watering ceftriaxone Allergy Intermediate Hives Verified 09/01/20 15:15 ciprofloxacin Allergy Intermediate lips Verified 09/01/20 15:15 burning/peeling doxycycline Allergy Intermediate hives, Verified 09/01/20 15:15 vomiting latex Allergy Intermediate mouth Verified 09/01/20 15:15 hives/burning sensation Penicillins Allergy Intermediate Hives Verified 09/01/20 15:15 Quinolones Allergy Intermediate Hives Verified 09/01/20 15:15 Sulfa (Sulfonamide Allergy Intermediate hives Verified 09/01/20 15:15 Antibiotics) Aminoglycosides Allergy Unknown unknown Verified 09/01/20 15:15 reaction tobramycin AdvReac Severe blindness Verified 09/01/20 15:15 lactose AdvReac Intermediate nausea, GI Verified 09/01/20 15:15 upset citalopram AdvReac Mild restlessnes Verified 09/01/20 15:15 s Ferric Oxide Allergy Intermediate hives (see Uncoded 09/01/20 15:15 comments) Past Med/Surg History Medical History (Updated 09/01/20 @ 19:01 by Dre Olmedo MD) Anemia hx of blood transfusion (post-operatively 10/2018) Anxiety 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 Lanza Surgical History H/O foot surgery RT HEEL SURGERY X 2 (HARDWARE INTACT) TOE CORRECTION X 3 (PINS INTACT ON RT FOOT) H/O shoulder surgery RT HUMERUS FX REPAIRED (HARDWARE INTACT) H/O wisdom tooth extraction H/O wrist surgery LEFT WRIST X 2 SURGERIES History of cholecystectomy History of colonoscopy History of esophagogastroduodenoscopy (EGD) History of gastrectomy secondary to PUD (OVER 10 YEARS AGO) History of hand surgery LEFT HAND FINGER REPAIR History of hysterectomy History of vascular access device MEDIPORT INTACT Family History Father Diabetes Mother Von Willebrand disease Grandmother (Paternal) Family hx of colon cancer Social History Smoking Status: Never smoker Second Hand Exposure: No; Hx Alcohol Use: No Hx Substance Use: No Preferred Language: Citizen Of [place] Communication Ability: Effective 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 and A total of 10 systems reviewed and were otherwise negative Physical Exam Vital Signs Vital Signs - 24 hr 09/01/20 13:37 09/01/20 15:07 09/01/20 18:00 Temperature 37.0 C Temperature Source Oral Pulse Rate 102 H Pulse Rate [Right Finger] 90 94 H 82 Pulse Rhythm [Right Finger] Regular Regular Regular Pulse Strength [Right Finger] Normal Normal Respiratory Rate 16 17 16 Respiratory Effort / Characteristics Non-Labored Non-Labored Spontaneous Respiratory Depth Normal Normal Normal Blood Pressure 114/83 Blood Pressure [Right Arm] 107/68 109/77 98/65 L Blood Pressure Mean 93 Blood Pressure Mean [Right Arm] 81 87 76 Blood Pressure Position [Right Arm] Lying Lying Lying Pulse Oximetry 95 96 96 Oxygen Delivery Method Room Air Room Air Room Air Sepsis Recent Fever Within 48 Hours No Sepsis New/Unexplained Change in Mental Status No Sepsis Action Taken by Nursing No Action Required Constitutional: Vital signs reviewed. Eyes: Pupils are equal round reactive to light. Conjunctiva are noninjected. ENT: Pharynx is clear without erythema or exudate. Mucous membranes are moist. No midline tenderness to the cervical spine. Respiratory: Clear to auscultation bilaterally. Breath sounds are equal srinath aterally. Cardiovascular: Regular rate and rhythm. No rubs or gallops. GI: Soft, nondistended and nontender. Bowel sounds are present. Musculoskeletal: Diffuse right hip tenderness without deformity or shortening. No erythema or swelling. Normal dorsalis pedis pulse. Diffuse tenderness to the right shoulder without tenderness to the humerus or elbow. She does have tenderness to the right wrist and hand over the distal radius and first and second metacarpal. Integumentary: No cyanosis. or jaundice. Neurological: The patient is awake and alert. She is blind. Motor and sensation are intact in all extremities although difficult to assess proximal limb strength in the right arm and leg. Psychiatric: Normal affect. Not anxious appearing. Course Administered Medications Discontinued Medications Sodium Chloride (Nss 1000ml) 500 mls @ 999 mls/hr IV .Q31M ONE Stop: 09/01/20 17:32 Last Admin: 09/01/20 18:15 Dose: 999 mls/hr Documented by: [id number] Acetaminophen (Ofirmev) 1,000 mg in 100 mls @ 400 mls/hr IV NOW STA Stop: 09/01/20 17:16 Last Admin: 09/01/20 18:15 Dose: 400 mls/hr Documented by: [id number] Morphine Sulfate (Morphine Sulfate 2 Mg/Ml Carp) 4 mg IV NOW STA Stop: 09/01/20 13:37 Last Admin: 09/01/20 14:26 Dose: 4 mg Documented by: [id number] Morphine Sulfate (Morphine Sulfate 4 Mg/Ml 1 Ml Carp\Vial) 4 mg IV NOW STA Stop: 09/01/20 16:08 Last Admin: 09/01/20 16:13 Dose: 4 mg Documented by: [id number] Ondansetron HCl (Ondansetron Inj 2 Mg/Ml 2 Ml Vial) 4 mg IV NOW STA Stop: 09/01/20 13:37 Last Admin: 09/01/20 14:25 Dose: 4 mg Documented by: [id number] Medical Decision Making Differential Diagnosis ICH, concussion, hip fracture, hip contusion, hip dislocation, wrist fracture, metabolic derangement, alcohol intoxication Medical Records Attestation: I reviewed the patient's medical records. I did perform a limited focused review of portions of the patient's old chart on the electronic medical record. The patient was admitted to the hospital last month after she fell going to her doctor's office. She does have a history of frequent falls and has a history of alcoholism. She does have prior history of subdural hematoma and has von Willebrand's disease. Home Medications Current Medication List: was personally reviewed by me Laboratory Data Attestation: I reviewed the patient's lab results. Result diagrams: 09/01/20 14:01 09/01/20 14:01 Lab Results 09/01/20 09/01/20 09/01/20 Range/Units 14:01 14:01 14:01 WBC 8.27 (4.8-10.8) K/uL RBC 3.62 L (4.2-5.4) M/uL Hgb 9.2 L (12.0-16.0) g/dL Hct 29.6 L (37-47) % MCV 81.8 (80-100) fL MCH 25.4 (25-34) pg MCHC 31.1 L (32-36) g/dL RDW Std Deviation 55.3 H (36.4-46.3) fL RDW Coeff of Lisa 18.4 H (11.5-14.5) % Plt Count 509 H (130-400) K/uL MPV 9.6 (7.4-10.4) fL Immature Gran % (Auto) 0.1 % Neut % (Auto) 75.4 % Lymph % (Auto) 11.5 % [place] % (Auto) 11.2 % Eos % (Auto) 1.6 % Baso % (Auto) 0.2 % Neut # (Auto) 6.23 (1.4-6.5) K/uL Lymph # (Auto) 0.95 L (1.2-3.4) K/uL [place] # (Auto) 0.93 H (0.11-0.59) K/uL Eos # (Auto) 0.13 (0-0.5) K/uL Baso # (Auto) 0.02 (0-0.2) K/uL Immature Gran # (Auto) 0.01 (0.00-0.02) K/uL PT (9.0-12.0) Seconds INR (0.9-1.1) APTT (21.0-31.0) Seconds PTT Ratio Sodium (136-145) mmol/L Potassium (3.5-5.1) mmol/L Chloride (98-107) mmol/L Carbon Dioxide (21-32) mmol/L Anion Gap (3-11) BUN (7-18) mg/dl Creatinine (0.6-1.2) mg/dl Est Cr Clr Drug Dosing ml/min Est GFR ( Amer) Est GFR (Non-Af Amer) BUN/Creatinine Ratio (10-20) Glucose (70-99) mg/dl Calcium (8.5-10.1) mg/dl Total Bilirubin (0.2-1) mg/dl AST (15-37) U/L ALT (12-78) U/L Alkaline Phosphatase (45-117) U/L Total Protein (6.4-8.2) gm/dl Albumin (3.4-5.0) gm/dl Globulin (2.5-4.0) gm/dl Albumin/Globulin Ratio (0.9-2) Urine Color Urine Appearance (Clear) Urine pH (4.5-7.5) Ur Specific [place] (1.000-1.030) Urine Protein (Negative) Urine Glucose (UA) (Negative) Urine Ketones (Negative) Urine Blood (Negative) Urine Nitrite (Negative) Urine Bilirubin (Negative) Urine Urobilinogen (Negative) Ur Leukocyte Esterase (Negative) Urine WBC (Auto) (0-5) /hpf Urine RBC (Auto) (0-4) /hpf U Hyaline Cast (Auto) (0-5) /lpf U Epithel Cells (Auto) (0-5) /lpf Urine Bacteria (Auto) (Negative) Ethyl Alcohol mg/dL < 3.0 (0-3) mg/dl COVID-19 Eval Order SARS-CoV-2 (PCR) (Negative) Influenza Type A (PCR) (Neg) Influenza Type B (PCR) (Neg) RSV (RT-PCR) (Neg) Blood Type A Positive Antibody Screen POSITIVE A 09/01/20 09/01/20 09/01/20 Range/Units 14:01 14:01 Unknown WBC (4.8-10.8) K/uL RBC (4.2-5.4) M/uL Hgb (12.0-16.0) g/dL Hct (37-47) % MCV (80-100) fL MCH (25-34) pg MCHC (32-36) g/dL RDW Std Deviation (36.4-46.3) fL RDW Coeff of Lisa (11.5-14.5) % Plt Count (130-400) K/uL MPV (7.4-10.4) fL Immature Gran % (Auto) % Neut % (Auto) % Lymph % (Auto) % [place] % (Auto) % Eos % (Auto) % Baso % (Auto) % Neut # (Auto) (1.4-6.5) K/uL Lymph # (Auto) (1.2-3.4) K/uL [place] # (Auto) (0.11-0.59) K/uL Eos # (Auto) (0-0.5) K/uL Baso # (Auto) (0-0.2) K/uL Immature Gran # (Auto) (0.00-0.02) K/uL PT 9.8 (9.0-12.0) Seconds INR 1.0 (0.9-1.1) APTT 26.5 (21.0-31.0) Seconds PTT Ratio 1.0 Sodium 135 L (136-145) mmol/L Potassium 4.0 (3.5-5.1) mmol/L Chloride 104 (98-107) mmol/L Carbon Dioxide 25 (21-32) mmol/L Anion Gap 5.0 (3-11) BUN 10 (7-18) mg/dl Creatinine 0.52 L (0.6-1.2) mg/dl Est Cr Clr Drug Dosing 117.8 ml/min Est GFR ( Amer) 128.2 Est GFR (Non-Af Amer) 110.6 BUN/Creatinine Ratio 19.6 (10-20) Glucose 78 (70-99) mg/dl Calcium 9.4 (8.5-10.1) mg/dl Total Bilirubin 0.4 (0.2-1) mg/dl AST 21 (15-37) U/L ALT 15 (12-78) U/L Alkaline Phosphatase 140 H (45-117) U/L Total Protein 6.9 (6.4-8.2) gm/dl Albumin 3.1 L (3.4-5.0) gm/dl Globulin 3.8 (2.5-4.0) gm/dl Albumin/Globulin Ratio 0.8 L (0.9-2) Urine Color Urine Appearance (Clear) Urine pH (4.5-7.5) Ur Specific [place] (1.000-1.030) Urine Protein (Negative) Urine Glucose (UA) (Negative) Urine Ketones (Negative) Urine Blood (Negative) Urine Nitrite (Negative) Urine Bilirubin (Negative) Urine Urobilinogen (Negative) Ur Leukocyte Esterase (Negative) Urine WBC (Auto) (0-5) /hpf Urine RBC (Auto) (0-4) /hpf U Hyaline Cast (Auto) (0-5) /lpf U Epithel Cells (Auto) (0-5) /lpf Urine Bacteria (Auto) (Negative) Ethyl Alcohol mg/dL (0-3) mg/dl COVID-19 Eval Order CovFluRsv at [facility] SARS-CoV-2 (PCR) (Negative) Influenza Type A (PCR) (Neg) Influenza Type B (PCR) (Neg) RSV (RT-PCR) (Neg) Blood Type Antibody Screen 09/01/20 09/01/20 Range/Units Unknown Unknown WBC (4.8-10.8) K/uL RBC (4.2-5.4) M/uL Hgb (12.0-16.0) g/dL Hct (37-47) % MCV (80-100) fL MCH (25-34) pg MCHC (32-36) g/dL RDW Std Deviation (36.4-46.3) fL RDW Coeff of Lisa (11.5-14.5) % Plt Count (130-400) K/uL MPV (7.4-10.4) fL Immature Gran % (Auto) % Neut % (Auto) % Lymph % (Auto) % [place] % (Auto) % Eos % (Auto) % Baso % (Auto) % Neut # (Auto) (1.4-6.5) K/uL Lymph # (Auto) (1.2-3.4) K/uL [place] # (Auto) (0.11-0.59) K/uL Eos # (Auto) (0-0.5) K/uL Baso # (Auto) (0-0.2) K/uL Immature Gran # (Auto) (0.00-0.02) K/uL PT (9.0-12.0) Seconds INR (0.9-1.1) APTT (21.0-31.0) Seconds PTT Ratio Sodium (136-145) mmol/L Potassium (3.5-5.1) mmol/L Chloride (98-107) mmol/L Carbon Dioxide (21-32) mmol/L Anion Gap (3-11) BUN (7-18) mg/dl Creatinine (0.6-1.2) mg/dl Est Cr Clr Drug Dosing ml/min Est GFR ( Amer) Est GFR (Non-Af Amer) BUN/Creatinine Ratio (10-20) Glucose (70-99) mg/dl Calcium (8.5-10.1) mg/dl Total Bilirubin (0.2-1) mg/dl AST (15-37) U/L ALT (12-78) U/L Alkaline Phosphatase (45-117) U/L Total Protein (6.4-8.2) gm/dl Albumin (3.4-5.0) gm/dl Globulin (2.5-4.0) gm/dl Albumin/Globulin Ratio (0.9-2) Urine Color Yellow Urine Appearance Cloudy A (Clear) Urine pH 8.0 H (4.5-7.5) Ur Specific [place] 1.012 (1.000-1.030) Urine Protein Negative (Negative) Urine Glucose (UA) Negative (Negative) Urine Ketones Negative (Negative) Urine Blood Negative (Negative) Urine Nitrite Negative (Negative) Urine Bilirubin Negative (Negative) Urine Urobilinogen Negative (Negative) Ur Leukocyte Esterase Negative (Negative) Urine WBC (Auto) 1-5 (0-5) /hpf Urine RBC (Auto) 0-4 (0-4) /hpf U Hyaline Cast (Auto) 0 (0-5) /lpf U Epithel Cells (Auto) 0-5 (0-5) /lpf Urine Bacteria (Auto) Negative (Negative) Ethyl Alcohol mg/dL (0-3) mg/dl COVID-19 Eval Order SARS-CoV-2 (PCR) NEGATIVE (Negative) Influenza Type A (PCR) Negative (Neg) Influenza Type B (PCR) Negative (Neg) RSV (RT-PCR) Negative (Neg) Blood Type Antibody Screen Imaging Data Radiologist's Impression: Cervical Spine CT 09/01/20 13:36 CT OF THE CERVICAL SPINE CLINICAL HISTORY: Neck pain status post trauma COMPARISON STUDY: July 07, 2020 CT DOSE: TECHNIQUE: CT scan of the cervical spine was performed from the skull base to the thoracic inlet. Images are reviewed in the axial, sagittal, and coronal plan es. IV contrast was not administered for this examination. A dose lowering technique was utilized adhering to the principles of ALARA. FINDINGS: The visualized portions of the lung apices reveal no evidence of pneumothorax. Right paraspinal nodularity at the apex is felt to represent prominent vessels. The prevertebral soft tissues are normal. No acute fractures or subluxations are visualized. There are old endplate compression deformities at the C7,T1 and T2 levels. There are minor degenerative changes present. IMPRESSION: 1. Old endplate compression deformities of C7, T1, and T2 levels 2. No acute fractures or traumatic subluxations. ACT 112: Negative or not required by law. Electronically signed by: Saurabh Anderson M.D. 09/01/2020 3:14 PM Hand X-Ray 09/01/20 13:36 RIGHT HAND 3 VIEWS, RIGHT WRIST 4 VIEWS HISTORY: Right hand and wrist pain. fall eval for fx COMPARISON: Right hand 11/26/2018. FINDINGS: The bones are osteopenic. Mild dorsal soft tissue swelling within the right wrist. No fracture or dislocation within the right hand or right wrist. The scaphoid appears intact. No radiopaque foreign bodies. IMPRESSION: No fracture or dislocation within the right hand or right wrist. ACT 112: Negative or not required by law. Electronically signed by: Hadley Soni M.D. 09/01/2020 2:[address] 09/01/20 13:36 CT head/brain wo con CLINICAL HISTORY: Head pain status post trauma COMPARISON STUDY: 07/07/2020 TECHNIQUE: Axial CT of the brain is performed from the vertex to the skull base. IV contrast was not administered for this examination. A dose lowering technique was utilized adhering to the principles of ALARA. CT DOSE: 922.55 mGy.cm FINDINGS: No intra or extra-axial mass lesions are visualized. There is no CT evidence of acute cortical infarction. There is no evidence of midline shift. There is no acute hemorrhage. No calvarial fractures are visualized. There is interval decrease in the size of the left frontal subdural with a trace residual. There are and lateral white matter hypodensities likely on a small vessel basis. There is no evidence of pathologic ventricular dilatation. There is minor polypoid mucosal thickening within the right maxillary sinus. IMPRESSION: 1. No acute intracranial findings 2. Near complete interval resolution of the previously described left frontal subdural hematoma with a trace residual ACT 112: Negative or not required by law. Electronically signed by: Saurabh Anderson M.D. 09/01/2020 3:10 PM Shoulder X-Ray 09/01/20 13:36 XR shoulder RT min 2V routine CLINICAL HISTORY: Right shoulder pain status post trauma COMPARISON: November 22, 2018 DISCUSSION: There is an internally fixated old right humeral fracture. No acute fractures are visualized. There is no dislocation. IMPRESSION: 1. Old postsurgical post matter changes 2. No acute fractures or dislocations. ACT 112: Negative or not required by law. Electronically signed by: Saurabh Anderson M.D. 09/01/2020 2:47 PM Wrist X-Ray 09/01/20 13:36 RIGHT HAND 3 VIEWS, RIGHT WRIST 4 VIEWS HISTORY: Right hand and wrist pain. fall eval for fx COMPARISON: Right hand 11/26/2018. FINDINGS: The bones are osteopenic. Mild dorsal soft tissue swelling within the right wrist. No fracture or dislocation within the right hand or right wrist. The scaphoid appears intact. No radiopaque foreign bodies. IMPRESSION: No fracture or dislocation within the right hand or right wrist. ACT 112: Negative or not required by law. Electronically signed by: Hadley Soni M.D. 09/01/2020 2:49 PM Chest X-Ray 09/01/20 13:37 XR chest 1V portable HISTORY: 50 years-old Female fall . Acute chest trauma status post fall COMPARISON: Chest radiograph 07/07/2020 TECHNIQUE: Portable supine AP view the chest FINDINGS: Cardiomediastinal and hilar silhouettes are within normal limits. Trace left pleural effusion has decreased in size from comparison. Numerous healing subacute bilateral rib fractures. No pneumothorax or overt pulmonary edema. Degenerative changes of the spine. Partially imaged are at hardware of the right humerus. IMPRESSION: 1. Numerous healing subacute bilateral rib fractures. No pneumothorax. 2. Trace left pleural effusion has decreased in size from comparison. ACT 112: Negative or not required by law. The above report was generated using voice recognition software. It may contain grammatical, syntax or spelling errors. Electronically signed by: Scott Blanco M.D. 09/01/2020 2:50 PM Hip X-Ray 09/01/20 13:37 XR hip RT min 2V HISTORY: 50 years-old Female fall acute right hip pain status post fall COMPARISON: Pelvis radiograph and CT abdomen and pelvis 07/07/2020 TECHNIQUE: 2 views the right hip FINDINGS: Demineralized appearance of the bones. Right hip total joint arthroplasty. No evidence of hardware complication, acute fracture or dislocation. Soft tissue swelling lateral to the right hip. Dystrophic calcifications adjacent to the greater trochanter. Chronic left pelvic ring fracture deformities. Fractures of the right pubic body, inferior and superior pubic rami are new from comparison. Mild displacement of the superior pubic ring fracture. IMPRESSION: 1. Acute appearing fractures of the right superior and inferior pubic rami with mild displacement of the superior pubic ramus and pubic body fractures. 2. Mild soft tissue swelling lateral to the right hip. 3. Right hip total joint arthroplasty without evidence of hardware complication. ACT 112: Negative or not required by law. The above report was generated using voice recognition software. It may contain grammatical, syntax or spelling errors. Electronically signed by: Scott Blanco M.D. 09/01/2020 2:49 PM ECG Data Attestation: I personally reviewed and interpreted this ECG as follows: Indication: + other (Fall) Rate (beats per minute): 86 Rhythm: + normal sinus ECG [place]: + Normal ECG ST segments: no ST elevation ECG Findings: no PVCs Head Trauma GCS Score: 14 (Lost 1 point to eye opening but the patient is blind.) MDM Narrative I did evaluate the patient as noted above. The patient is presenting with injuries after mechanical fall early in the morning today. She complains of hip and shoulder pain. She does not think she hit her head but she does have a headache and neck pain. IV access was established. I did place an order for continuous cardiac monitoring. The monitor showed normal sinus rhythm at a rate of 80 bpm. I did order and personally review the patient's 12-lead EKG as described above. She has no signs of acute ischemia. I did order and personally reviewed the images of the patient's x-rays as described above. She does have pubic rami fracture on the right side on hip x-ray. There is no evidence of fracture or dislocation to the right wrist, hand, shoulder or hip. I did order a urine analysis. There is no evidence of infection. I did order and review the patient's blood work as noted in the electronic medical record. Her white count is not elevated. She has chronic anemia with a hemoglobin 9.2. Platelet count is 509. Electrolytes demonstrate a sodium of 135 but otherwise are unremarkable. Serum alcohol is undetectable. I did order a CT of the head and cervical spine. I did review the images myself as well as the radiology report as described above. There is no evidence of intracranial abnormality or cervical fracture. I did treat the patient with IV morphine and Zofran. She was given additional dose of morphine for continued pain later. I did discuss the test results with the patient. She will be hospitalized for further care and evaluation. I did discuss case with the hospitalist and case making machine operator. Impression & Plan Fracture of multiple pubic rami, Anemia, Fall, Contusion of multiple sites, Head injury Discharge Plan Visit Data Chief Complaint: Hip Pain Stated Complaint: hip pain ED Provider: Dre Olmedo Discharge Problem: Fracture of multiple pubic rami, Anemia, Fall, Contusion of multiple sites, He ad injury Patient Disposition: Being Evaluated by Hospitalist Forms Stand Alone Forms: My [facility] Prescriptions Prescriptions: No Action levetiracetam [Keppra] 500 mg tablet 1,500 mg PO BID RF: 0 gabapentin 400 mg capsule 400 mg PO TID RF: 0 montelukast 10 mg tablet 10 mg PO DAILY RF: 0 lorazepam 1 mg tablet 1 mg PO Q8H PRN (Reason: Anxiety) RF: 0 pantoprazole [Protonix] 40 mg tablet,delayed release (DR/EC) 40 mg PO BID RF: 0 fexofenadine [Maame Allergy] 180 mg Tablet 180 mg PO DAILY RF: 0 trazodone 50 mg tablet 50 mg PO HS RF: 0 sertraline 50 mg tablet 50 mg PO DAILY RF: 0 cyclobenzaprine 10 mg tablet 10 mg PO TID PRN (Reason: muscle spasms) RF: 0 lidocaine 4 % Adhesive Patch,Medicated 1 patch TOPICAL BID PRN (Reason: Pain) RF: 0 promethazine 25 mg tablet 25 mg PO QID PRN (Reason: Nausea And Vomiting) RF: 0 Referrals Referrals: Jaspal Bae MD [Primary Care Provider] -
[2020-09-01 14:19] LABS: Basophils # (auto) 0.02 K/uL (0-0.2); Basophils % (auto) 0.2 %; Eosinophils # (auto) 0.13 K/uL (0-0.5); Eosinophils % (auto) 1.6 %; Hematocrit (blood only) 29.6 % (37-47); Hemoglobin 9.2 g/dL (12.0-16.0); Immature Granulocytes # (auto) 0.01 K/uL (0.00-0.02); Immature Granulocytes % (auto) 0.1 %; Lymphocytes # (auto) 0.95 K/uL (1.2-3.4); Lymphocytes % (auto) 11.5 %; Mean Corpuscular Hemoglobin 25.4 pg (25-34); Mean Corpuscular Hgb Conc 31.1 g/dL (32-36); Mean Corpuscular Volume 81.8 fL (80-100); Mean Platelet Volume 9.6 fL (7.4-10.4); Monocytes # (auto) 0.93 K/uL (0.11-0.59); Monocytes % (auto) 11.2 %; Neutrophils # (auto) 6.23 K/uL (1.4-6.5); Neutrophils % (auto) 75.4 %; Platelet Count 509 K/uL (130-400); RDW Coefficient of Variation 18.4 % (11.5-14.5); RDW Standard Deviation 55.3 fL (36.4-46.3); Red Blood Count 3.62 M/uL (4.2-5.4); White Blood Count 8.27 K/uL (4.8-10.8)
[2020-09-01 14:33] LABS: Partial Thromboplastin Time 26.5 Seconds (21.0-31.0); Prothrombin Time 9.8 Seconds (9.0-12.0)
[2020-09-01 14:43] LABS: Albumin Level 3.1 gm/dl (3.4-5.0); BUN Creatinine Ratio 19.6 (10-20); Calcium 9.4 mg/dl (8.5-10.1); Creatinine Clr Calc Pharmacy 117.8 ml/min; Est GFR (African American) 128.2; Est GFR (Non-African American) 110.6
[2020-09-01 14:46] LABS: Albumin Globulin Ratio 0.8 (0.9-2); Bilirubin,Total 0.4 mg/dl (0.2-1); Globulin 3.8 gm/dl (2.5-4.0); Total Protein 6.9 gm/dl (6.4-8.2)
--- NOTE | 2020-09-01 14:48 | XRay Report ---
XR shoulder RT min 2V routine CLINICAL HISTORY: Right shoulder pain status post trauma COMPARISON: November 22, 2018 DISCUSSION: There is an internally fixated old right humeral fracture. No acute fractures are visuali zed. There is no dislocation. IMPRESSION: 1. Old postsurgical post matter changes 2. No acute fractures or dislocations. ACT 112: Negative or not required by law. Electronically signed by: Saurabh Anderson M.D. 09/01/2020 2:47 PM
--- NOTE | 2020-09-01 14:50 | XRay Report ---
RIGHT HAND 3 VIEWS, RIGHT WRIST 4 VIEWS HISTORY: Right hand and wrist pain. fall eval for fx COMPARISON: Right hand 11/26/2018. FINDINGS: The bones are osteopenic. Mild dorsal soft tissue swelling within the right wrist. No fract ure or dislocation within the right hand or right wrist. The scaphoid appears intact. No radiopaque f oreign bodies. IMPRESSION: No fracture or dislocation within the right hand or right wrist. ACT 112: Negative or not required by law. Electronically signed by: Hadley Soni M.D. 09/01/2020 2:49 PM
--- NOTE | 2020-09-01 14:50 | XRay Report ---
XR hip RT min 2V HISTORY: 50 years-old Female fall acute right hip pain status post fall COMPARISON: Pelvis radiograph and CT abdomen and pelvis 07/07/2020 TECHNIQUE: 2 views the right hip FINDINGS: Demineralized appearance of the bones. Right hip total joint arthroplasty. No evidence of hardware co mplication, acute fracture or dislocation. Soft tissue swelling lateral to the right hip. Dystrophic calcifications adjacent to the greater trochanter. Chronic left pelvic ring fracture deformities. Fra ctures of the right pubic body, inferior and superior pubic rami are new from comparison. Mild displa cement of the superior pubic ring fracture. IMPRESSION: 1. Acute appearing fractures of the right superior and inferior pubic rami with mild displacement of the superior pubic ramus and pubic body fractures. 2. Mild soft tissue swelling lateral to the right hip. 3. Right hip total joint arthroplasty without evidence of hardware complication. ACT 112: Negative or not required by law. The above report was generated using voice recognition software. It may contain grammatical, syntax o r spelling errors. Electronically signed by: Scott Blanco M.D. 09/01/2020 2:49 PM
--- NOTE | 2020-09-01 14:52 | XRay Report ---
XR chest 1V portable HISTORY: 50 years-old Female fall . Acute chest trauma status post fall COMPARISON: Chest radiograph 07/07/2020 TECHNIQUE: Portable supine AP view the chest FINDINGS: Cardiomediastinal and hilar silhouettes are within normal limits. Trace left pleural effusion has dec reased in size from comparison. Numerous healing subacute bilateral rib fractures. No pneumothorax or overt pulmonary edema. Degenerative changes of the spine. Partially imaged are at hardware of the [facility] humerus. IMPRESSION: 1. Numerous healing subacute bilateral rib fractures. No pneumothorax. 2. Trace left pleural effusion has decreased in size from comparison. ACT 112: Negative or not required by law. The above report was generated using voice recognition software. It may contain grammatical, syntax o r spelling errors. Electronically signed by: Scott Blanco M.D. 09/01/2020 2:50 PM
--- NOTE | 2020-09-01 15:11 | CT Scan Report ---
CT head/brain wo con CLINICAL HISTORY: Head pain status post trauma COMPARISON STUDY: 07/07/2020 TECHNIQUE: Axial CT of the brain is performed from the vertex to the skull base. IV contrast was not administered for this examination. A dose lowering technique was utilized adhering to the principles of ALARA. CT DOSE: 922.55 mGy.cm FINDINGS: No intra or extra-axial mass lesions are visualized. There is no CT evidence of acute cortical infarc tion. There is no evidence of midline shift. There is no acute hemorrhage. No calvarial fractures ar e visualized. There is interval decrease in the size of the left frontal subdural with a trace residu al. There are and lateral white matter hypodensities likely on a small vessel basis. There is no evidence of pathologic ventricular dilatation. There is minor polypoid mucosal thickening within the right maxillary sinus. IMPRESSION: 1. No acute intracranial findings 2. Near complete interval resolution of the previously described left frontal subdural hematoma with a trace residual ACT 112: Negative or not required by law. Electronically signed by: Saurabh Anderson M.D. 09/01/2020 3:10 PM
--- NOTE | 2020-09-01 15:16 | CT Scan Report ---
CT OF THE CERVICAL SPINE CLINICAL HISTORY: Neck pain status post trauma COMPARISON STUDY: July 07, 2020 CT DOSE: TECHNIQUE: CT scan of the cervical spine was performed from the skull base to the thoracic inlet. [place] ges are reviewed in the axial, sagittal, and coronal planes. IV contrast was not administered for thi s examination. A dose lowering technique was utilized adhering to the principles of ALARA. FINDINGS: The visualized portions of the lung apices reveal no evidence of pneumothorax. Right paraspinal nodul arity at the apex is felt to represent prominent vessels. The prevertebral soft tissues are normal. No acute fractures or subluxations are visualized. There are old endplate compression deformities at the C7,T1 and T2 levels. There are minor degenerative changes present. IMPRESSION: 1. Old endplate compression deformities of C7, T1, and T2 levels 2. No acute fractures or traumatic subluxations. ACT 112: Negative or not required by law. Electronically signed by: Saurabh Anderson M.D. 09/01/2020 3:14 PM
[2020-09-01] MEDS ORDERED: MoRPHine SULFATE 4 MG/ML 1 ML CARP\\VIAL IV STA (16:07)
--- NOTE | 2020-09-01 16:09 | Electrocardiogram Report ---
Test Reason : Blood Pressure : / mmHG Vent. Rate : 086 BPM Atrial Rate : 086 BPM P-R Int : 130 ms QRS Dur : 066 ms QT Int : 356 ms P-R-T Axes : 055 045 058 degrees QTc Int : 426 ms Normal sinus rhythm Normal ECG When compared with ECG of 07-JUL-2020 11:40, Premature ventricular complexes are no longer Present Nonspecific T wave abnormality no longer evident in Inferior leads Nonspecific T wave abnormality no longer evident in Anterolateral leads Confirmed by Erickson Hopson ([id number]) on 09/01/2020 4:09:45 PM Referred By: REFERRED SELF Confirmed By:Erickson Hopson
--- NOTE | 2020-09-01 16:19 | History & Physical Report ---
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 Fall Acute fracture pubic ramus Hip x-ray with acute appearing fractures of the right superior and inferior pubic rami with mild displacement of the superior pubic ramus and pubic body fractures, mild soft tissue swelling lateral to the right hip Right hip total joint arthroplasty without evidence of hardware complication Pain improved after administration of IV pain medication in ED Will obtain CT pelvis without contrast for better visualization of area Remain on bedrest until evaluated by orthopedic service Beckett catheter in place Gentle IV fluids, pain control N.p.o. after midnight Alcohol use disorder History of significant alcohol use, endorses only drinking 1 glass of wine most nights with last drink last evening No signs or symptoms of acute withdrawal on exam. Serum alcohol level less than 3 mg/dL Continue home gabapentin, PRN Ativan per alcohol withdrawal protocol Seizure disorder Remote history of seizures Continue home Keppra, gabapentin Seizure precautions Anxiety Depression Continue SSRI, Ativan PRN used mainly for appetite per patient Von Willebrand Disease History of subdural hematoma, rectus sheath hematoma on previous admissions No acute bleeding, hgb stable at 9.2 SCDs for VTE Gastroparesis History of gastrectomy Continue Protonix twice daily, promethazine History of blindness Secondary to tobramycin History of skin reaction Transfer[place] [facility] [place] [place] due to suspicion for SJS/TENS reaction to abx in setting of MSSA bacteremia. 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 Plan to return home once medically stable. Patient seen in collaboration with Dr. Zhang. Please see addendum. 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 Patient with history of recurrent falls for several months. Was at a friend's house last evening and tripped over the couch, falling onto her R hip. Developed immediate pain that was worse with ambulation. Remained on the ground until about 2:30 AM when she was helped by her friend to the couch. Was hoping pain would subside or earlier today but it remained very difficult for her to ambulate so she came to the ED this afternoon for further evaluation. Patient experiencing pain of right hip with any type of movement. Pain radiating down right leg and across lower portion of right back. No groin pain. Improved with IV morphine given in ED. Denies any fever, chills, lightheadedness or headache. No chest pain, palpitations, shortness of breath, nausea, vomiting, abdominal pain, dysuria, diarrhea constipation. Has not had much to drink or eat since last evening. Allergies Allergy/AdvReac Type Severity Reaction Status Date / Time iron dextran complex Allergy Severe SOB, heart Verified 09/01/20 15:15 racing (see comments) cat dander Allergy Intermediate eye Verified 09/01/20 15:15 watering ceftriaxone Allergy Intermediate Hives Verified 09/01/20 15:15 ciprofloxacin Allergy Intermediate lips Verified 09/01/20 15:15 burning/peeling doxycycline Allergy Intermediate hives, Verified 09/01/20 15:15 vomiting latex Allergy Intermediate mouth Verified 09/01/20 15:15 hives/burning sensation Penicillins Allergy Intermediate Hives Verified 09/01/20 15:15 Quinolones Allergy Intermediate Hives Verified 09/01/20 15:15 Sulfa (Sulfonamide Allergy Intermediate hives Verified 09/01/20 15:15 Antibiotics) Aminoglycosides Allergy Unknown unknown Verified 09/01/20 15:15 reaction tobramycin AdvReac Severe blindness Verified 09/01/20 15:15 lactose AdvReac Intermediate nausea, GI Verified 09/01/20 15:15 upset citalopram AdvReac Mild restlessnes Verified 09/01/20 15:15 s Ferric Oxide Allergy Intermediate hives (see Uncoded 09/01/20 15:15 comments) Home Medications Medication Instructions Recorded Confirmed Type pantoprazole [Protonix] 40 mg PO BID 01/29/18 09/01/20 History levetiracetam [Keppra] 1,500 mg PO BID 07/07/18 09/01/20 History gabapentin 400 mg PO TID 11/18/18 09/01/20 History fexofenadine [Maame Allergy] 180 mg PO DAILY 09/22/19 09/01/20 History montelukast 10 mg PO DAILY 10/24/19 09/01/20 History lorazepam 1 mg PO Q8H PRN 04/12/20 09/01/20 History sertraline 50 mg PO DAILY 07/07/20 09/01/20 History trazodone 50 mg PO HS 07/07/20 09/01/20 History cyclobenzaprine 10 mg PO TID PRN 09/01/20 09/01/20 History lidocaine 1 patch TOPICAL BID PRN 09/01/20 09/01/20 History promethazine 25 mg PO QID PRN 09/01/20 09/01/20 History Past Med/Surg History Medical History (Updated 09/01/20 @ 19:01 by Dre Olmedo MD) Anemia hx of blood transfusion (post-operatively 10/2018) Anxiety 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 Lanza Surgical History H/O foot surgery RT HEEL SURGERY X 2 (HARDWARE INTACT) TOE CORRECTION X 3 (PINS INTACT ON RT FOOT) H/O shoulder surgery RT HUMERUS FX REPAIRED (HARDWARE INTACT) H/O wisdom tooth extraction H/O wrist surgery LEFT WRIST X 2 SURGERIES History of cholecystectomy History of colonoscopy History of esophagogastroduodenoscopy (EGD) History of gastrectomy secondary to PUD (OVER 10 YEARS AGO) History of hand surgery LEFT HAND FINGER REPAIR History of hysterectomy History of vascular access device MEDIPORT INTACT Family History Father Diabetes Mother Von Willebrand disease Grandmother (Paternal) Family hx of colon cancer Social History Smoking Status: Never smoker Second Hand Exposure: No; Hx Alcohol Use: No Hx Substance Use: No Preferred Language: Greek Communication Ability: Effective Wiping Rag Washer Required: No Beliefs That Will Affect Care: None marital status: Legally Current Living Situation: Alone current occupational status: disabled How many Children do You have: 2 Feels Safe at Home: Yes Assistive Devices: Brace/Splint/Immobilizer and Cane Review of Systems Review of Systems: At least ten systems reviewed and negative except as noted in the HPI. Physical Exam Physical Exam: General Appearance: WD/WN, vitals as above, NAD, sitting up in bed, pleasant, conversing easily Head: normocephalic, atraumatic Eyes: Blind in both eyes, PERRL, conjunctivae normal, anicteric sclerae ENT: external ear and nose normal, oropharynx normal Neck: normal visual inspection, trachea midline, no thyromegaly Respiratory: normal respiratory effort, lungs clear to auscultation, no wheeze, rales, rhonchi. No accessory muscle use Cardiovascular: regular rate, rhythm, no murmur, normal peripheral pulses, no BLE edema. Vessels: no JVD Chest: normal inspection of chest Abdomen/GI: normal bowel sounds, soft, nontender, no hepatosplenomegaly Extremities/Musculoskeletal: Pain to palpation of right hip. No visual deformities noted. Skin intact. No cyanosis or clubbing, extremities motor strength 5/5 Neurologic: PERRL, EOMI, accommodation nl, no face palsy, no dysarthria, CN's II-XI intact bilaterally and moves all extremities Psychiatric: A+Ox3, euthymic affect Skin: normal color, warm/dry, areas of erythematous slightly raised wheals around neck and bilateral arms, chronic condition per patient Results & Data Results & Data ([facility]) Vital Signs (Past 12 Hours) Vital Signs Temp Pulse Pulse Resp BP BP Pulse Ox 09/01/20 13:37 37.0 C 102 H 90 16 114/83 107/68 95 Laboratory Results Short CBC 09/01/20 09/01/20 Range/Units 14:01 14:01 WBC 8.27 (4.8-10.8) K/uL Hgb 9.2 L (12.0-16.0) g/dL Hct 29.6 L (37-47) % Plt Count 509 H (130-400) K/uL Creatinine 0.52 L (0.6-1.2) mg/dl BMP 09/01/20 14:01 Sodium 135 L Potassium 4.0 Chloride 104 Carbon Dioxide 25 BUN 10 Creatinine 0.52 L Glucose 78 Calcium 9.4 Liver Function 09/01/20 Range/Units 14:01 Total Bilirubin 0.4 (0.2-1) mg/dl AST 21 (15-37) U/L ALT 15 (12-78) U/L Alkaline Phosphatase 140 H (45-117) U/L Albumin 3.1 L (3.4-5.0) gm/dl Diagnostic Findings Cervical Spine CT 09/01/20 13:36 CT OF THE CERVICAL SPINE CLINICAL HISTORY: Neck pain status post trauma COMPARISON STUDY: July 07, 2020 CT DOSE: TECHNIQUE: CT scan of the cervical spine was performed from the skull base to the thoracic inlet. Images are reviewed in the axial, sagittal, and coronal planes. IV contrast was not administered for this examination. A dose lowering technique was utilized adhering to the principles of ALARA. FINDINGS: The visualized portions of the lung apices reveal no evidence of pneumothorax. Right paraspinal nodularity at the apex is felt to represent prominent vessels. The prevertebral soft tissues are normal. No acute fractures or subluxations are visualized. There are old endplate compression deformities at the C7,T1 and T2 levels. There are minor degenerative changes present. IMPRESSION: 1. Old endplate compression deformities of C7, T1, and T2 levels 2. No acute fractures or traumatic subluxations. ACT 112: Negative or not required by law. Electronically signed by: Saurabh Anderson M.D. 09/01/2020 3:14 PM Hand X-Ray 09/01/20 13:36 RIGHT HAND 3 VIEWS, RIGHT WRIST 4 VIEWS HISTORY: Right hand and wrist pain. fall eval for fx COMPARISON: Right hand 11/26/2018. FINDINGS: The bones are osteopenic. Mild dorsal soft tissue swelling within the right wrist. No fracture or dislocation within the right hand or right wrist. The scaphoid appears intact. No radiopaque foreign bodies. IMPRESSION: No fracture or dislocation within the right hand or right wrist. ACT 112: Negative or not required by law. Electronically signed by: Hadley Soni M.D. 09/01/2020 2:[address] 09/01/20 13:36 CT head/brain wo con CLINICAL HISTORY: Head pain status post trauma COMPARISON STUDY: 07/07/2020 TECHNIQUE: Axial CT of the brain is performed from the vertex to the skull base. IV contrast was not administered for this examination. A dose lowering technique was utilized adhering to the principles of ALARA. CT DOSE: 922.55 mGy.cm FINDINGS: No intra or extra-axial mass lesions are visualized. There is no CT evidence of acute cortical infarction. There is no evidence of midline shift. There is no ac pino hemorrhage. No calvarial fractures are visualized. There is interval decrease in the size of the left frontal subdural with a trace residual. There are and lateral white matter hypodensities likely on a small vessel basis. There is no evidence of pathologic ventricular dilatation. There is minor polypoid mucosal thickening within the right maxillary sinus. IMPRESSION: 1. No acute intracranial findings 2. Near complete interval resolution of the previously described left frontal subdural hematoma with a trace residual ACT 112: Negative or not required by law. Electronically signed by: Saurabh Anderson M.D. 09/01/2020 3:10 PM Shoulder X-Ray 09/01/20 13:36 XR shoulder RT min 2V routine CLINICAL HISTORY: Right shoulder pain status post trauma COMPARISON: November 22, 2018 DISCUSSION: There is an internally fixated old right humeral fracture. No acute fractures are visualized. There is no dislocation. IMPRESSION: 1. Old postsurgical post matter changes 2. No acute fractures or dislocations. ACT 112: Negative or not required by law. Electronically signed by: Saurabh Anderson M.D. 09/01/2020 2:47 PM Wrist X-Ray 09/01/20 13:36 RIGHT HAND 3 VIEWS, RIGHT WRIST 4 VIEWS HISTORY: Right hand and wrist pain. fall eval for fx COMPARISON: Right hand 11/26/2018. FINDINGS: The bones are osteopenic. Mild dorsal soft tissue swelling within the right wrist. No fracture or dislocation within the right hand or right wrist. The scaphoid appears intact. No radiopaque foreign bodies. IMPRESSION: No fracture or dislocation within the right hand or right wrist. ACT 112: Negative or not required by law. Electronically signed by: Hadley Soni M.D. 09/01/2020 2:49 PM Chest X-Ray 09/01/20 13:37 XR chest 1V portable HISTORY: 50 years-old Female fall . Acute chest trauma status post fall COMPARISON: Chest radiograph 07/07/2020 TECHNIQUE: Portable supine AP view the chest FINDINGS: Cardiomediastinal and hilar silhouettes are within normal limits. Trace left pleural effusion has decreased in size from comparison. Numerous healing subacute bilateral rib fractures. No pneumothorax or overt pulmonary edema. Degenerative changes of the spine. Partially imaged are at hardware of the right humerus. IMPRESSION: 1. Numerous healing subacute bilateral rib fractures. No pneumothorax. 2. Trace left pleural effusion has decreased in size from comparison. ACT 112: Negative or not required by law. The above report was generated using voice recognition software. It may contain grammatical, syntax or spelling errors. Electronically signed by: Scott Blanco M.D. 09/01/2020 2:50 PM Hip X-Ray 09/01/20 13:37 XR hip RT min 2V HISTORY: 50 years-old Female fall acute right hip pain status post fall COMPARISON: Pelvis radiograph and CT abdomen and pelvis 07/07/2020 TECHNIQUE: 2 views the right hip FINDINGS: Demineralized appearance of the bones. Right hip total joint arthroplasty. No evidence of hardware complication, acute fracture or dislocation. Soft tissue swelling lateral to the right hip. Dystrophic calcifications adjacent to the greater trochanter. Chronic left pelvic ring fracture deformities. Fractures of the right pubic body, inferior and superior pubic rami are new from comparison. Mild displacement of the superior pubic ring fracture. IMPRESSION: 1. Acute appearing fractures of the right superior and inferior pubic rami with mild displacement of the superior pubic ramus and pubic body fractures. 2. Mild soft tissue swelling lateral to the right hip. 3. Right hip total joint arthroplasty without evidence of hardware complication. ACT 112: Negative or not required by law. The above report was generated using voice recognition software. It may contain grammatical, syntax or spelling errors. Electronically signed by: Scott Blanco M.D. 09/01/2020 2:49 PM Supervising Physician Co-Signing Physician Notes Attending addendum. The patient was seen and examined in emergency room She is blind and also history of alcoholism was admitted with a fall and fracture of the pubic rami Complains of pain in the right pelvic area Denies any shortness of breath, any nausea and or vomiting On examination No distress at rest Hemodynamically stable Chestclear to auscultate bilaterally Heart-S1-S2 regular, no murmur Abdomen-benign, nontender Extremities-no edema Her admission labs, imaging studies reviewed Has right superior inferior pubic rami fracture No other significant findings on imaging studies Ortho will be consulted Agree with assessment and plan as outlined above by DREA [address] (1) Fall Encounter type: initial encounter Qualified Code(s): W19.XXXA - Unspecified fall, initial encounter
[2020-09-01] MEDS ORDERED: ACETAMINOPHEN 1,000 MG/100 ML VIAL IV STA (17:02)
[2020-09-01] MEDS ORDERED: SODIUM CHLORIDE 0.9% 1000ML 500 ML IV ONE (17:02)
[2020-09-01 17:20] LABS: Influenza A virus by PCR Negative (Neg); Influenza B virus by PCR Negative (Neg); RSV by PCR Negative (Neg); SARS CoV2 RNA(COVID-19) InHosp NEGATIVE (Negative)
[2020-09-01 18:41] LABS: Appearance Urine Cloudy (Clear); Bacteria Urine Automated Negative (Negative); Bilirubin Urine Negative (Negative); Blood Urine Negative (Negative); Cast Urine Automated 0 /lpf (0-5); Color Urine Yellow; Epithelial Cell Urine Auto 0-5 /lpf (0-5); Glucose Urine UA Negative (Negative); Ketones Urine Negative (Negative); Leukocyte Esterase Urine Negative (Negative); Nitrite Urine Negative (Negative); Protein Urine Negative (Negative); RBC Urine Automated 0-4 /hpf (0-4); Specific Gravity Urine 1.012 (1.000-1.030); Urobilinogen Urine Negative (Negative)
[2020-09-01] MEDS ORDERED: LORazepam 2 MG/4 ML VIAL IV PRN (19:48)
[2020-09-01] MEDS ORDERED: ATIVAN IV ALCOHOL WITHDRAWL IV PRN (19:48)
[2020-09-01] MEDS ORDERED: LORazepam 3 MG/6 ML VIAL IV PRN (19:48)
[2020-09-01] MEDS ORDERED: ATIVAN 1MG HOMEPACK PO PRN (19:48)
[2020-09-01] MEDS ORDERED: POLYETHYLENE (MIRALAX) 17 GM PACK PO PRN (19:48)
[2020-09-01] MEDS ORDERED: ONDANSETRON INJ 2 MG/ML 2 ML VIAL IV PRN (19:48)
[2020-09-01] MEDS ORDERED: ACETAMINOPHEN 1000 MG/100 ML IV IV PRN (19:48)
[2020-09-01] MEDS ORDERED: ACETAMINOPHEN 325 MG TAB PO PRN (19:48)
[2020-09-01] MEDS ORDERED: MoRPHine SULFATE 2 MG/ML CARP IV PRN (19:48)
[2020-09-01] MEDS ORDERED: LORazepam 1 MG/2 ML VIAL IV PRN (19:48)
[2020-09-01] MEDS: HYDROmorphone INJ 0.5 MG/0.5 ML SYR IV PRN (19:54)
[2020-09-01] MEDS: PROMETHAZINE HCL 25 MG TAB PO PRN (20:14)
[2020-09-01] MEDS ORDERED: LORazepam 1 MG TAB PO PRN (20:16)
[2020-09-01] MEDS: traZODone HCL 50 MG TAB PO SCH (21:19)
[2020-09-01] MEDS: SODIUM CHLORIDE 0.9% 1000ML 1,000 ML IV SCH (21:20)
[2020-09-01] MEDS: PANTOprazole 40 MG TAB PO SCH (21:20)
[2020-09-01] MEDS: GABAPENTIN 400 MG CAP PO SCH (21:20)
[2020-09-01] MEDS: levETIRAcetam 500 MG TAB PO SCH (21:20)
[2020-09-01] MEDS ORDERED: LORazepam 1 MG TAB PO STA (21:29)
[2020-09-01] MEDS ORDERED: Nursing to Pharmacy Communication SCH (21:45)
[2020-09-01] MEDS ORDERED: KETOROLAC TROMETHAMINE 15 MG/ML VIAL IV ONE (23:10)
[2020-09-01] MEDS ORDERED: SODIUM CHLORIDE 0.9% 1000ML 1,000 ML IV SCH (23:15)
[2020-09-02] MEDS: HYDROmorphone INJ 0.5 MG/0.5 ML SYR IV PRN ×5 (04:29→21:37)
[2020-09-02 05:58] LABS: Hematocrit (blood only) 23.6 % (37-47); Hemoglobin 7.2 g/dL (12.0-16.0); Mean Corpuscular Hemoglobin 25.3 pg (25-34); Mean Corpuscular Hgb Conc 30.5 g/dL (32-36); Mean Corpuscular Volume 82.8 fL (80-100); Mean Platelet Volume 9.8 fL (7.4-10.4); Platelet Count 369 K/uL (130-400); RDW Coefficient of Variation 18.4 % (11.5-14.5); RDW Standard Deviation 56.1 fL (36.4-46.3); Red Blood Count 2.85 M/uL (4.2-5.4); White Blood Count 4.96 K/uL (4.8-10.8)
[2020-09-02 06:18] LABS: BUN Creatinine Ratio 31.8 (10-20); Calcium 7.8 mg/dl (8.5-10.1); Creatinine Clr Calc Pharmacy 165.8 ml/min; Est GFR (African American) 144.7; Est GFR (Non-African American) 124.9; Potassium 4.1 mmol/L (3.5-5.1)
--- NOTE | 2020-09-02 08:12 | CT Scan Report ---
CT pelvis wo con HISTORY: 50 years-old Female better eval of acute pelvic rami fractures acute pelvic pain status pos t fall COMPARISON: Radiographs of the right hip of same day, pelvis radiographs 07/07/2020 TECHNIQUE: Multiple axial CT images of the pelvis were obtained without the use of IV contrast. 3-D r endering images were also obtained. A dose lowering technique was used consistent with the principals of RUDDY. FINDINGS: Artifact from right hip total joint arthroplasty limits the study. Beckett catheter noted within a deco mpressed urinary bladder lumen. There are several prominent fluid-filled loops of small bowel in the lower pelvis. Varices in the anterior abdominal wall. Healed chronic left superior and inferior pubic rami fractures. There is an acute nondisplaced fracture of the right inferior pubic ramus. Acute com minuted fractures are noted involving the proximal aspect of the inferior pubic ramus with additional acute comminuted slightly displaced fractures of the right superior pubic ramus extending into the p ubic body. No widening of the pubic symphysis. The imaged sacrum and SI joints appear intact. Degener ative changes of the imaged lumbar spine. No additional acute fracture or subluxation. Moderate left hip osteoarthritis. IMPRESSION: 1. Acute comminuted mildly displaced right superior pubic ramus fractures. 2. Acute nondisplaced fractures of the right inferior pubic ramus. No pathologic widening of the pubi c symphysis. 3. Healed chronic left pubic ring fractures. 4. Right hip total joint arthroplasty without evidence of complication. 5. Moderate left hip osteoarthritis. ACT 112: Negative or not required by law. The above report was generated using voice recognition software. It may contain grammatical, syntax o r spelling errors. Electronically signed by: Scott Blanco M.D. 09/02/2020 8:11 AM
[2020-09-02] MEDS: levETIRAcetam 500 MG TAB PO SCH ×2 (08:20→20:09)
[2020-09-02] MEDS: GABAPENTIN 400 MG CAP PO SCH ×3 (08:20→20:09)
[2020-09-02] MEDS: PANTOprazole 40 MG TAB PO SCH ×2 (08:20→20:09)
[2020-09-02] MEDS: MONTELUKAST SODIUM 10 MG TABLET PO SCH (08:20)
[2020-09-02] MEDS: SERTRALINE HCL 50 MG TABLET PO SCH (08:21)
[2020-09-02] MEDS: FEXOFENADINE HCL 180 MG TAB PO SCH (08:21)
[2020-09-02] MEDS: PROMETHAZINE HCL 25 MG TAB PO PRN ×2 (08:22→15:30)
[2020-09-02] MEDS: SODIUM CHLORIDE 0.9% 1000ML 1,000 ML IV SCH (10:57)
[2020-09-02] MEDS ORDERED: SODIUM CHLORIDE 0.9% 250 ML IV PRN (11:28)
[2020-09-02] MEDS: LORazepam 1 MG TAB PO PRN (12:14)
--- NOTE | 2020-09-02 14:41 | Hospitalist Progress Note ---
Date of Service September 02, 2020 Assessment & Plan (1) Fall: (2) Fracture of pubic ramus: Fall Acute fracture pubic ramus Hip x-ray with acute appearing fractures of the right superior and inferior pubic rami with mild displacement of the superior pubic ramus and pubic body fractures, mild soft tissue swelling lateral to the right hip Right hip total joint arthroplasty without evidence of hardware complication Pain improved after administration of IV pain medication in ED Will obtain CT pelvis without contrast for better visualization of area Remain on bedrest until evaluated by orthopedic service Beckett catheter in place Gentle IV fluids, pain control Appreciate Ortho input and recommendation No surgery recommended and she will be fed Acute blood loss anemia Hemoglobin dropped to 7.2 We will give 1 unit of blood transfusion which will increase the blood pressure as well (3) Alcohol use disorder: No signs and/or symptoms of withdrawal Has been only on gabapentin for chronic pain and will continue She does not require any extra Ativan (4) Anxiety: Has been getting Ativan 1 mg p.o. 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 Alcohol use disorder History of significant alcohol use, endorses only drinking 1 glass of wine most nights with last drink last evening No signs or symptoms of acute withdrawal on exam. Serum alcohol level less than 3 mg/dL Continue home gabapentin, PRN Ativan per alcohol withdrawal protocol-alcohol withdrawal protocol is not needed Alcohol withdrawal has been ruled out Seizure disorder Remote history of seizures Continue home Keppra, gabapentin Seizure precautions Anxiety Depression Continue SSRI, Ativan PRN used mainly for appetite per patient Von Willebrand Disease History of subdural hematoma, rectus sheath hematoma on previous admissions No acute bleeding, hgb stable at 9.2 SCDs for VTE Gastroparesis History of gastrectomy Continue Protonix twice daily, promethazine Continue promethazine and Ativan prior each meals as she has been taking at home History of blindness Secondary to tobramycin History of skin reaction Transferred to [facility] last month due to suspicion for SJS/TENS reaction to abx in setting of MSSA bacteremia. 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 Plan to return home once medically stable. Admission and Anticipated Discharge Date Admission Date: September 01, 2020 Subjective 09/02/2020 The patient was seen and examined in medical telemetry unit She is a status post fall with right pubic rami fracture She was noted to have low hemoglobin and will have 1 unit of blood transfusion today She complains of increasing pain Denies any chest pain and/or palpitation Review of Systems Review of Systems: All systems reviewed and are unremarkable except as noted below Gastrointestinal: + nausea; no bloating Musculoskeletal: + joint pain (Pain in right pelvis with radiation to the leg) Physical Exam Physical Exam: Lying in bed without any acute distress Constitutional: + ill appearing and average body habitus Eyes: PERRL, conjunctivae normal, anicteric sclerae ENMT: external ear and nose normal, oropharynx normal Neck: trachea midline, no thyromegaly Respiratory: no respiratory distress Auscultation: lungs clear to auscultation bilaterally Cardiovascular: Rate/Rhythm: regular rate and regular rhythm Heart Sounds: no murmur Extremities: no edema Gastrointestinal (Abdomen): Inspection/Auscultation: normal bowel sounds; abdomen not distended Percussion/Palpation: abdomen soft; abdomen nontender Musculoskeletal: Pain in the right pelvis with movement of the right lower extremity Neurologic: Alert and awake. Oriented x3. No tremors on outstretched hands Lymphatic: no cervical or axillary lymphadenopathy Results & Data Results & Data ([facility]) Vital Signs (Past 12 Hours) Vital Signs Temp Pulse Pulse Resp BP BP Pulse Ox 09/02/20 11:40 36.6 C 75 16 101/70 98 09/02/20 07:30 98 H 09/02/20 07:28 36.4 C L 101 H 16 91/56 L 91 09/02/20 03:17 36.8 C 100 H 16 101/67 92 Laboratory Results Short CBC 09/02/20 Range/Units 05:35 WBC 4.96 (4.8-10.8) K/uL Hgb 7.2 L (12.0-16.0) g/dL Hct 23.6 L (37-47) % Plt Count 369 (130-400) K/uL BMP 09/02/20 05:35 Sodium 139 Potassium 4.1 Chloride 112 H Carbon Dioxide 25 BUN 12 Creatinine 0.36 L Glucose 85 Calcium 7.8 L D Liver Function 09/01/20 Range/Units 14:01 Total Bilirubin 0.4 (0.2-1) mg/dl Alkaline Phosphatase 140 H (45-117) U/L Urine 09/01/20 Range/Units Unknown Urine Color Yellow Urine Appearance Cloudy A (Clear) Urine pH 8.0 H (4.5-7.5) Ur Specific [place] 1.012 (1.000-1.030) Urine Protein Negative (Negative) Urine Glucose (UA) Negative (Negative) Medications Administered Current Inpatient Medications Acetaminophen (Acetaminophen 325 Mg Tab) 650 mg PO Q4H PRN PRN Reason: Pain or Fever Stop: 10/01/20 19:47 Fexofenadine HCl (Fexofenadine Hcl 180 Mg Tab) 180 mg PO DAILY DENIS Stop: 10/02/20 08:59 Last Admin: 09/02/20 08:21 Dose: 180 mg Documented by: Gabapentin (Gabapentin 400 Mg Cap) 400 mg PO TID DENIS Stop: 10/01/20 20:59 Last Admin: 09/02/20 12:14 Dose: 400 mg Documented by: Hydromorphone HCl (Hydromorphone Inj 0.5 Mg/0.5 Ml Syr) 0.5 mg IV Q4H PRN PRN Reason: Pain Stop: 09/15/20 19:24 Last Admin: 09/02/20 12:15 Dose: 0.5 mg Documented by: Sodium Chloride (Nss 1000ml) 1,000 mls @ 75 mls/hr IV .[id number] DENIS Stop: 09/02/20 23:59 Last Admin: 09/02/20 10:57 Dose: 75 mls/hr Documented by: Sodium Chloride (Nss) 250 mls @ 15 mls/hr IV .[id number] PRN PRN Reason: For Transfusion Stop: 09/02/20 21:28 Levetiracetam (Levetiracetam 500 Mg Tab) 1,500 mg PO BID DENIS Stop: 10/01/20 20:59 Last Admin: 09/02/20 08:20 Dose: 1,500 mg Documented by: Lorazepam (Lorazepam 1 Mg Tab) 1 mg PO Q8H PRN PRN Reason: Anxiety Stop: 10/02/20 11:26 Last Admin: 09/02/20 12:14 Dose: 1 mg Documented by: Montelukast Sodium (Montelukast Sodium 10 Mg Tablet) 10 mg PO DAILY DENIS Stop: 10/02/20 08:59 Last Admin: 09/02/20 08:20 Dose: 10 mg Documented by: Ondansetron HCl (Ondansetron Inj 2 Mg/Ml 2 Ml Vial) 4 mg IV Q6H PRN PRN Reason: Nausea Stop: 10/01/20 19:47 Pantoprazole Sodium (Pantoprazole 40 Mg Tab) 40 mg PO BID DENIS Stop: 10/01/20 20:59 Last Admin: 09/02/20 08:20 Dose: 40 mg Documented by: Polyethylene Glycol (Polyethylene (Miralax) 17 Gm Pack) 17 gm PO DAILY PRN PRN Reason: Constipation Stop: 10/01/20 19:47 Promethazine HCl (Promethazine Hcl 25 Mg Tab) 25 mg PO QID PRN PRN Reason: Nausea And Vomiting Stop: 10/01/20 19:47 Last Admin: 09/02/20 08:22 Dose: 25 mg Documented by: Sertraline HCl (Sertraline Hcl 50 Mg Tablet) 50 mg PO DAILY DENIS Stop: 10/02/20 08:59 Last Admin: 09/02/20 08:21 Dose: 50 mg Documented by: Trazodone HCl (Trazodone Hcl 50 Mg Tab) 50 mg PO HS [facility] Stop: 10/01/20 20:59 Last Admin: 09/01/20 21:19 Dose: 50 mg Documented by: (1) Fall Encounter type: initial encounter Qualified Code(s): W19.XXXA - Unspecified fall, initial encounter
--- NOTE | 2020-09-02 14:47 | Consultation Report ---
DATE OF CONSULTATION: 09/02/2020 HISTORY OF PRESENT ILLNESS: This is a 50-year-old female who was at a friend's home yesterday evening. She stepped backwards, lost her footing and fell on to her right hip, pelvis and right wrist. She had immediate pain and difficulty ambulating, eventually was helped to seat and then transferred to [facility]. She was evaluated by the Emergency Department physician and noted to have a right superior and inferior pubic rami fracture. She was admitted to the hospitalist service and stabilized and Orthopedics was consulted. The patient denied any loss of consciousness or head or neck trauma. No other associated injuries with the exception of right wrist pain and difficulty with grasping right upper extremity. Pain improved after IV pain medication administration. PAST MEDICAL HISTORY: Von Willebrand type 2, anxiety, depression, seizure disorder, alcohol use disorder, osteoarthritis, gastroparesis, legal blindness, recent Vaughan-Timbo syndrome, anemia, environmental allergies, insomnia, migraine headaches, restless leg syndrome, TMJ. PAST SURGICAL HISTORY: Right heel surgery x2, toe correction x3, history of right humeral fracture repair, wisdom tooth extraction and wrist surgery, left wrist surgery x2, cholecystectomy, colonoscopy, EGD, gastrectomy secondary to PUD, hand surgery, left hand finger repair, hysterectomy, vascular access device, MediPort. ALLERGIES: IRON DEXTRAN COMPLEX, CAT DANDER, CEFTRIAXONE, CIPROFLOXACIN, DOXYCYCLINE, LATEX, PENICILLIN, QUINOLONES, SULFA, ANTIBIOTICS, TOBRAMYCIN, LACTOSE, CITALOPRAM AND FERRIC OXIDE. HOME MEDICATIONS: Please note the list provided. SOCIAL HISTORY: The patient denies tobacco use. She drinks alcohol on a regular basis. Denies any illicit drug use. She lives alone. She is completely disabled. PHYSICAL EXAMINATION: This is a pleasant 50-year-old female lying supine in hospital room bed. She is awake, alert and oriented x3. Speech clear and fluent. Affect is appropriate. HEENT: Normocephalic, atraumatic. EOMI, legal blindness. NECK: Supple. No JVD. Trachea is midline. MUSCULOSKELETAL: Focused exam of the pelvis and right hip demonstrates a well-healed surgical incision of right hip, local bruising over the trochanter, tenderness to palpation over the trochanter and the superior and inferior pubic rami on the right. She has discomfort with active and passive range of motion of the right hip and lower extremity localized to the pelvis. Negative shift, negative rock. Negative shuck. Examination of the right wrist demonstrates minimal tenderness of the distal radius and distal radial ulnar joint. She has tenderness over the radioscaphocapitate ligament and the snuffbox. No crepitation, no guarding, discomfort over the snuffbox and distal radius. Also tenderness over the joint capsule and the radioscaphocapitate ligament. Radiographs and CT scans reviewed demonstrating a right superior and inferior pubic rami fractures with a well-fixed cemented total hip arthroplasty in stable alignment. There is slight lucency around the cement mantle of distal femur; however, does not appear to be acute. Osteopenia is evident healing superior and inferior pubic rami fracture on the left is also noted. Radiographs of the wrist demonstrate no acute fracture or dislocation. IMPRESSION: Right superior and inferior pubic rami fractures without significant displacement. Right wrist sprain, status post fall. RECOMMENDATION: Velcro wrist brace right upper extremity, weightbearing as tolerated with walker and assist x1. May participate in physical therapy as tolerated. Follow up with Dr. Rebollar in clinic upon discharge. Thank you for the opportunity to consult in care of this patient.
[2020-09-02] MEDS: traZODone HCL 50 MG TAB PO SCH (20:09)
[2020-09-03] MEDS: HYDROmorphone INJ 0.5 MG/0.5 ML SYR IV PRN ×5 (01:38→21:07)
[2020-09-03 06:35] LABS: Basophils # (auto) 0.02 K/uL (0-0.2); Basophils % (auto) 0.3 %; Eosinophils # (auto) 0.47 K/uL (0-0.5); Eosinophils % (auto) 7.1 %; Hemoglobin 9.1 g/dL (12.0-16.0); Immature Granulocytes # (auto) 0.03 K/uL (0.00-0.02); Immature Granulocytes % (auto) 0.5 %; Lymphocytes # (auto) 1.27 K/uL (1.2-3.4); Lymphocytes % (auto) 19.1 %; Mean Corpuscular Hgb Conc 31.4 g/dL (32-36); Mean Corpuscular Volume 82.9 fL (80-100); Mean Platelet Volume 10.2 fL (7.4-10.4); Monocytes # (auto) 1.05 K/uL (0.11-0.59); Monocytes % (auto) 15.8 %; Neutrophils # (auto) 3.82 K/uL (1.4-6.5); Neutrophils % (auto) 57.2 %; Nucleated RBC # (auto) 0.02 K/uL (0-0); Nucleated RBC % (auto) 0.2 %; Platelet Count 404 K/uL (130-400); RDW Standard Deviation 54.7 fL (36.4-46.3); White Blood Count 6.66 K/uL (4.8-10.8)
[2020-09-03 06:52] LABS: BUN Creatinine Ratio 18.3 (10-20); Calcium 7.9 mg/dl (8.5-10.1); Creatinine Clr Calc Pharmacy 140.9 ml/min; Est GFR (African American) 135.5; Est GFR (Non-African American) 116.9; Potassium 4.1 mmol/L (3.5-5.1)
[2020-09-03] MEDS: SERTRALINE HCL 50 MG TABLET PO SCH (09:04)
[2020-09-03] MEDS: LORazepam 1 MG TAB PO PRN ×2 (09:04→21:08)
[2020-09-03] MEDS: MONTELUKAST SODIUM 10 MG TABLET PO SCH (09:04)
[2020-09-03] MEDS: PROMETHAZINE HCL 25 MG TAB PO PRN ×2 (09:04→21:08)
[2020-09-03] MEDS: levETIRAcetam 500 MG TAB PO SCH ×2 (09:05→21:08)
[2020-09-03] MEDS: PANTOprazole 40 MG TAB PO SCH ×2 (09:05→21:08)
[2020-09-03] MEDS: FEXOFENADINE HCL 180 MG TAB PO SCH (09:05)
[2020-09-03] MEDS: GABAPENTIN 400 MG CAP PO SCH ×3 (09:06→21:08)
--- NOTE | 2020-09-03 12:21 | Hospitalist Progress Note ---
Date of Service September 03, 2020 Assessment & Plan (1) Fall: (2) Fracture of pubic ramus: Fall Acute fracture pubic ramus Hip x-ray with acute appearing fractures of the right superior and inferior pubic rami with mild displacement of the superior pubic ramus and pubic body fractures, mild soft tissue swelling lateral to the right hip Right hip total joint arthroplasty without evidence of hardware complication Pain improved after administration of IV pain medication in ED Will obtain CT pelvis without contrast for better visualization of area Remain on bedrest until evaluated by orthopedic service Beckett catheter in place Gentle IV fluids, pain control Appreciate Ortho input and recommendation No surgery recommended and she will be fed Remains stable and has been getting PT and OT evaluation Wants to go home which will depend on PT OT evaluation and continuation of PT an d OT Acute blood loss anemia Hemoglobin dropped to 7.2 We will give 1 unit of blood transfusion which will increase the blood pressure as well Hemoglobin went up to more than 9 and the patient has been feeling much better (3) Alcohol use disorder: No signs and/or symptoms of withdrawal Has been only on gabapentin for chronic pain and will continue She does not require any extra Ativan No withdrawal symptoms (4) Anxiety: Has been getting Ativan 1 mg p.o. 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 Seizure disorder Remote history of seizures Continue home Keppra, gabapentin Seizure precautions Anxiety Depression Continue SSRI, Ativan PRN used mainly for appetite per patient Gastroparesis History of gastrectomy Continue Protonix twice daily, promethazine Continue promethazine and Ativan prior each meals as she has been taking at home History of blindness Secondary to tobramycin History of skin reaction Transferred to [facility] last month due to suspicion for SJS/TENS reaction to abx in setting of MSSA bacteremia. 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 Plan to return home once medically stable. Admission and Anticipated Discharge Date Admission Date: September 01, 2020 Subjective 09/02/2020 The patient was seen and examined in medical telemetry unit She is a status post fall with right pubic rami fracture She was noted to have low hemoglobin and will have 1 unit of blood transfusion today She complains of increasing pain Denies any chest pain and/or palpitation 09/03/2020 The patient was seen and examined in medical telemetry unit She remains stable and complains of pain with minimal movement of the extremities mostly on the right lower extremity than the left Denies any other symptoms Review of Systems Review of Systems: All systems reviewed and are unremarkable except as noted below Gastrointestinal: + nausea; no bloating Musculoskeletal: + joint pain (Pain in right pelvis with radiation to the leg) Physical Exam Physical Exam: Lying in bed without any acute distress Constitutional: + ill appearing and average body habitus Eyes: PERRL, conjunctivae normal, anicteric sclerae ENMT: external ear and nose normal, oropharynx normal Neck: trachea midline, no thyromegaly Respiratory: no respiratory distress Auscultation: lungs clear to auscultation bilaterally Cardiovascular: Rate/Rhythm: regular rate and regular rhythm Heart Sounds: no murmur Extremities: no edema Gastrointestinal (Abdomen): Inspection/Auscultation: normal bowel sounds; abdomen not distended Percussion/Palpation: abdomen soft; abdomen nontender Musculoskeletal: Pain in pelvis with movement of the right lower extremity Neurologic: Alert, awake and oriented x3 Lymphatic: no cervical or axillary lymphadenopathy Results & Data Results & Data ([facility]) Vital Signs (Past 12 Hours) Vital Signs Temp Pulse Pulse Resp BP BP Pulse Ox 09/03/20 11:56 37.2 C 86 21 115/70 93 09/03/20 08:31 89 20 104/72 09/03/20 08:28 36.9 C 100 H 18 105/72 94 09/03/20 03:17 36.1 C L 94 H 16 113/77 96 09/03/20 01:40 104/70 105 H Laboratory Results Short CBC 09/03/20 Range/Units 06:23 WBC 6.66 (4.8-10.8) K/uL Hgb 9.1 L (12.0-16.0) g/dL Hct 29.0 L (37-47) % Plt Count 404 H (130-400) K/uL BMP 09/03/20 06:23 Sodium 139 Potassium 4.1 Chloride 110 H Carbon Dioxide 25 BUN 8 Creatinine 0.44 L Glucose 103 H Calcium 7.9 L Medications Administered Current Inpatient Medications Acetaminophen (Acetaminophen 325 Mg Tab) 650 mg PO Q4H PRN PRN Reason: Pain or Fever Stop: 10/01/20 19:47 Fexofenadine HCl (Fexofenadine Hcl 180 Mg Tab) 180 mg PO DAILY DENIS Stop: 10/02/20 08:59 Last Admin: 09/03/20 09:05 Dose: 180 mg Documented by: Gabapentin (Gabapentin 400 Mg Cap) 400 mg PO TID DENIS Stop: 10/01/20 20:59 Last Admin: 09/03/20 09:06 Dose: 400 mg Documented by: Hydromorphone HCl (Hydromorphone Inj 0.5 Mg/0.5 Ml Syr) 0.5 mg IV Q4H PRN PRN Reason: Pain Stop: 09/15/20 19:24 Last Admin: 09/03/20 11:17 Dose: 0.5 mg Documented by: Levetiracetam (Levetiracetam 500 Mg Tab) 1,500 mg PO BID DENIS Stop: 10/01/20 20:59 Last Admin: 09/03/20 09:05 Dose: 1,500 mg Documented by: Lorazepam (Lorazepam 1 Mg Tab) 1 mg PO Q8H PRN PRN Reason: Anxiety Stop: 10/02/20 11:26 Last Admin: 09/03/20 09:04 Dose: 1 mg Documented by: Montelukast Sodium (Montelukast Sodium 10 Mg Tablet) 10 mg PO DAILY DENIS Stop: 10/02/20 08:59 Last Admin: 09/03/20 09:04 Dose: 10 mg Documented by: Ondansetron HCl (Ondansetron Inj 2 Mg/Ml 2 Ml Vial) 4 mg IV Q6H PRN PRN Reason: Nausea Stop: 10/01/20 19:47 Pantoprazole Sodium (Pantoprazole 40 Mg Tab) 40 mg PO BID [facility] Stop: 10/01/20 20:59 Last Admin: 09/03/20 09:05 Dose: 40 mg Documented by: Polyethylene Glycol (Polyethylene (Miralax) 17 Gm Pack) 17 gm PO DAILY PRN PRN Reason: Constipation Stop: 10/01/20 19:47 Promethazine HCl (Promethazine Hcl 25 Mg Tab) 25 mg PO QID PRN PRN Reason: Nausea And Vomiting Stop: 10/01/20 19:47 Last Admin: 09/03/20 09:04 Dose: 25 mg Documented by: Sertraline HCl (Sertraline Hcl 50 Mg Tablet) 50 mg PO DAILY [facility] Stop: 10/02/20 08:59 Last Admin: 09/03/20 09:04 Dose: 50 mg Documented by: Trazodone HCl (Trazodone Hcl 50 Mg Tab) 50 mg PO HS [facility] Stop: 10/01/20 20:59 Last Admin: 09/02/20 20:09 Dose: 50 mg Documented by: (1) Fall Encounter type: initial encounter Qualified Code(s): W19.XXXA - Unspecified fall, initial encounter
[2020-09-03] MEDS: traZODone HCL 50 MG TAB PO SCH (21:08)
[2020-09-04] MEDS: HYDROmorphone INJ 0.5 MG/0.5 ML SYR IV PRN ×5 (02:11→23:46)
[2020-09-04] MEDS: LORazepam 1 MG TAB PO PRN ×2 (07:31→20:49)
[2020-09-04] MEDS: PROMETHAZINE HCL 25 MG TAB PO PRN ×3 (07:31→20:49)
[2020-09-04] MEDS: GABAPENTIN 400 MG CAP PO SCH ×3 (09:07→20:49)
[2020-09-04] MEDS: SERTRALINE HCL 50 MG TABLET PO SCH (09:07)
[2020-09-04] MEDS: PANTOprazole 40 MG TAB PO SCH ×2 (09:07→20:49)
[2020-09-04] MEDS: MONTELUKAST SODIUM 10 MG TABLET PO SCH (09:07)
[2020-09-04] MEDS: levETIRAcetam 500 MG TAB PO SCH ×2 (09:07→20:49)
[2020-09-04] MEDS: FEXOFENADINE HCL 180 MG TAB PO SCH (09:07)
--- NOTE | 2020-09-04 10:48 | Hospitalist Progress Note ---
Date of Service September 04, 2020 Assessment & Plan (1) Fall: (2) Fracture of pubic ramus: Fall Acute fracture pubic ramus Hip x-ray with acute appearing fractures of the right superior and inferior pubic rami with mild displacement of the superior pubic ramus and pubic body fractures, mild soft tissue swelling lateral to the right hip Right hip total joint arthroplasty without evidence of hardware complication Pain improved after administration of IV pain medication in ED Will obtain CT pelvis without contrast for better visualization of area Remain on bedrest until evaluated by orthopedic service Beckett catheter in place Gentle IV fluids, pain control Appreciate Ortho input and recommendation No surgery recommended and she will be fed Remains stable and has been getting PT and OT evaluation Wants to go home which will depend on PT OT evaluation and continuation of PT an d OT Awaiting PT and OT evaluation and recommendation Acute blood loss anemia Hemoglobin dropped to 7.2 We will give 1 unit of blood transfusion which will increase the blood pressure as well Hemoglobin went up to more than 9 and the patient has been feeling much better Hemoglobin remains stable following's blood transfusion (3) Alcohol use disorder: No signs and/or symptoms of withdrawal Has been only on gabapentin for chronic pain and will continue She does not require any extra Ativan No withdrawal symptoms (4) Anxiety: Has been getting Ativan 1 mg p.o. 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 Seizure disorder Remote history of seizures Continue home Keppra, gabapentin Seizure precautions Anxiety Depression Continue SSRI, Ativan PRN used mainly for appetite per patient Gastroparesis History of gastrectomy Continue Protonix twice daily, promethazine Continue promethazine and Ativan prior each meals as she has been taking at home History of blindness Secondary to tobramycin History of skin reaction Transferred to [facility] last month due to suspicion for SJS/TENS reaction to abx in setting of MSSA bacteremia. 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 and was treated with triamcinolone cream Also developed adrenal insufficiency requiring stress dose steroids - thought to be due to use of high potency topical steroids for her rash Following with derm Skin issues resolving, mild appearance of hives on admission on neck, arms Monitor skin appearance closely Note multiple allergies to antibiotics DVT Ppx: SCDs Code status: DNR per discussion with patient PCP: Kathia Dispo: Admitted to [facility]. Plan to return home once medically stable. Disposition depends on PT and OT evaluation and recommendation Admission and Anticipated Discharge Date Admission Date: September 01, 2020 Subjective 09/02/2020 The patient was seen and examined in medical telemetry unit She is a status post fall with right pubic rami fracture She was noted to have low hemoglobin and will have 1 unit of blood transfusion today She complains of increasing pain Denies any chest pain and/or palpitation 09/03/2020 The patient was seen and examined in medical telemetry unit She remains stable and complains of pain with minimal movement of the extremiti es mostly on the right lower extremity than the left Denies any other symptoms 09/04/2020 The patient was seen and examined in medical telemetry unit She remains weak and denies any pain at rest Denies any other symptoms status post blood transfusion We will get PT and OT evaluation and possible placement/home with more help at discharge Review of Systems Review of Systems: All systems reviewed and are unremarkable except as noted below Gastrointestinal: + nausea; no bloating Musculoskeletal: + joint pain (Pain in right pelvis with radiation to the leg) Physical Exam Physical Exam: Lying in bed without any acute distress Constitutional: + ill appearing and average body habitus Eyes: PERRL, conjunctivae normal, anicteric sclerae ENMT: external ear and nose normal, oropharynx normal Neck: trachea midline, no thyromegaly Respiratory: no respiratory distress Auscultation: lungs clear to auscultation bilaterally Cardiovascular: Rate/Rhythm: regular rate and regular rhythm Heart Sounds: no murmur Extremities: no edema Gastrointestinal (Abdomen): Inspection/Auscultation: normal bowel sounds; abdomen not distended Percussion/Palpation: abdomen soft; abdomen nontender Musculoskeletal: Pain in the right pelvic area with any movement of the right lower extremity Lymphatic: no cervical or axillary lymphadenopathy Results & Data Results & Data ([facility]) Vital Signs (Past 12 Hours) Vital Signs Temp Pulse Pulse Resp BP Pulse Ox 09/04/20 07:41 36.3 C L 103 H 20 104/71 95 09/04/20 07:03 90 09/04/20 04:40 36.4 C L 99 H 18 106/72 94 09/04/20 00:14 101 H Medications Administered Current Inpatient Medications Acetaminophen (Acetaminophen 325 Mg Tab) 650 mg PO Q4H PRN PRN Reason: Pain or Fever Stop: 10/01/20 19:47 Fexofenadine HCl (Fexofenadine Hcl 180 Mg Tab) 180 mg PO DAILY [facility] Stop: 10/02/20 08:59 Last Admin: 09/04/20 09:07 Dose: 180 mg Documented by: Gabapentin (Gabapentin 400 Mg Cap) 400 mg PO TID [facility] Stop: 10/01/20 20:59 Last Admin: 09/04/20 09:07 Dose: 400 mg Documented by: Hydromorphone HCl (Hydromorphone Inj 0.5 Mg/0.5 Ml Syr) 0.5 mg IV Q4H PRN PRN Reason: Pain Stop: 09/15/20 19:24 Last Admin: 09/04/20 06:24 Dose: 0.5 mg Documented by: Levetiracetam (Levetiracetam 500 Mg Tab) 1,500 mg PO BID DENIS Stop: 10/01/20 20:59 Last Admin: 09/04/20 09:07 Dose: 1,500 mg Documented by: Lorazepam (Lorazepam 1 Mg Tab) 1 mg PO Q8H PRN PRN Reason: Anxiety Stop: 10/02/20 11:26 Last Admin: 09/04/20 07:31 Dose: 1 mg Documented by: Montelukast Sodium (Montelukast Sodium 10 Mg Tablet) 10 mg PO DAILY DENIS Stop: 10/02/20 08:59 Last Admin: 09/04/20 09:07 Dose: 10 mg Documented by: Ondansetron HCl (Ondansetron Inj 2 Mg/Ml 2 Ml Vial) 4 mg IV Q6H PRN PRN Reason: Nausea Stop: 10/01/20 19:47 Pantoprazole Sodium (Pantoprazole 40 Mg Tab) 40 mg PO BID DENIS Stop: 10/01/20 20:59 Last Admin: 09/04/20 09:07 Dose: 40 mg Documented by: Polyethylene Glycol (Polyethylene (Miralax) 17 Gm Pack) 17 gm PO DAILY PRN PRN Reason: Constipation Stop: 10/01/20 19:47 Promethazine HCl (Promethazine Hcl 25 Mg Tab) 25 mg PO QID PRN PRN Reason: Nausea And Vomiting Stop: 10/01/20 19:47 Last Admin: 09/04/20 07:31 Dose: 25 mg Documented by: Sertraline HCl (Sertraline Hcl 50 Mg Tablet) 50 mg PO DAILY [facility] Stop: 10/02/20 08:59 Last Admin: 09/04/20 09:07 Dose: 50 mg Documented by: Trazodone HCl (Trazodone Hcl 50 Mg Tab) 50 mg PO HS [facility] Stop: 10/01/20 20:59 Last Admin: 09/03/20 21:08 Dose: 50 mg Documented by: (1) Fall Encounter type: initial encounter Qualified Code(s): W19.XXXA - Unspecified fall, initial encounter
[2020-09-04] MEDS: traZODone HCL 50 MG TAB PO SCH (20:49)
[2020-09-05] MEDS: HYDROmorphone INJ 0.5 MG/0.5 ML SYR IV PRN ×4 (05:07→20:48)
[2020-09-05] MEDS: SERTRALINE HCL 50 MG TABLET PO SCH (07:41)
[2020-09-05] MEDS: LORazepam 1 MG TAB PO PRN ×2 (07:41→22:41)
[2020-09-05] MEDS: PROMETHAZINE HCL 25 MG TAB PO PRN ×2 (07:41→22:41)
[2020-09-05] MEDS: FEXOFENADINE HCL 180 MG TAB PO SCH (07:42)
[2020-09-05] MEDS: levETIRAcetam 500 MG TAB PO SCH ×2 (07:42→20:50)
[2020-09-05] MEDS: GABAPENTIN 400 MG CAP PO SCH ×3 (07:43→20:51)
[2020-09-05] MEDS: PANTOprazole 40 MG TAB PO SCH ×2 (07:44→20:51)
[2020-09-05] MEDS: MONTELUKAST SODIUM 10 MG TABLET PO SCH (07:44)
--- NOTE | 2020-09-05 11:08 | Hospitalist Progress Note ---
Date of Service September 05, 2020 Assessment & Plan (1) Fall: (2) Fracture of pubic ramus: Fall Acute fracture pubic ramus Hip x-ray with acute appearing fractures of the right superior and inferior pubic rami with mild displacement of the superior pubic ramus and pubic body fractures, mild soft tissue swelling lateral to the right hip Right hip total joint arthroplasty without evidence of hardware complication Pain improved after administration of IV pain medication in ED Will obtain CT pelvis without contrast for better visualization of area Remain on bedrest until evaluated by orthopedic service Beckett catheter in place Gentle IV fluids, pain control Appreciate Ortho input and recommendation No surgery recommended and she will be fed Remains stable and has been getting PT and OT evaluation Wants to go home which will depend on PT OT evaluation and continuation of PT an d OT PT recommended rehab but the patient wants to go home electronics engineering manager to arrange for home PT We will give a small dose of oral narcotics for pain control on discharge-maybe oxycodone 2.5-5 mg every 6 hourly as needed Acute blood loss anemia Hemoglobin dropped to 7.2 We will give 1 unit of blood transfusion which will increase the blood pressure as well Hemoglobin went up to more than 9 and the patient has been feeling much better Hemoglobin remains stable following's blood transfusion (3) Alcohol use disorder: No signs and/or symptoms of withdrawal Has been only on gabapentin for chronic pain and will continue She does not require any extra Ativan No withdrawal symptoms (4) Anxiety: Has been getting Ativan 1 mg p.o. 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 Seizure disorder Remote history of seizures Continue home Keppra, gabapentin Seizure precautions Anxiety Depression Continue SSRI, Ativan PRN used mainly for appetite per patient Gastroparesis History of gastrectomy Continue Protonix twice daily, promethazine Continue promethazine and Ativan prior each meals as she has been taking at home History of blindness Secondary to tobramycin History of skin reaction Transferred to [facility] last month due to suspicion for SJS/TENS reaction to abx in setting of MSSA bacteremia. 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 Plan to return home once medically stable. Wants to go home tomorrow and she is going to arrange for the transport electronics engineering manager is following for home health nurse and outpatient physical therapy recommendation Admission and Anticipated Discharge Date Admission Date: September 01, 2020 Subjective 09/02/2020 The patient was seen and examined in medical telemetry unit She is a status post fall with right pubic rami fracture She was noted to have low hemoglobin and will have 1 unit of blood transfusion today She complains of increasing pain Denies any chest pain and/or palpitation 09/03/2020 The patient was seen and examined in medical telemetry unit She remains stable and complains of pain with minimal movement of the extremities mostly on the right lower extremity than the left Denies any other symptoms 09/04/2020 The patient was seen and examined in medical telemetry unit She remains weak and denies any pain at rest Denies any other symptoms status post blood transfusion We will get PT and OT evaluation and possible placement/home with more help at discharge 09/05/2020 The patient was seen and examined in medical telemetry unit She complains some pain involving the right pelvis with ambulation and with movement of the right lower extremity She was advised to go to rehab as per therapist but she wants to go home Complains to have some rash involving the right palmar surface Review of Systems 2 Review of Systems: All systems reviewed and are unremarkable except as noted below Gastrointestinal: + nausea; no bloating Musculoskeletal: + joint pain (Pain in right pelvis with radiation to the leg) Physical Exam Physical Exam: Lying in bed without any acute distress Constitutional: + ill appearing and average body habitus Eyes: PERRL, conjunctivae normal, anicteric sclerae ENMT: external ear and nose normal, oropharynx normal Neck: trachea midline, no thyromegaly Respiratory: no respiratory distress Auscultation: lungs clear to auscultat ion bilaterally Cardiovascular: Rate/Rhythm: regular rate and regular rhythm Heart Sounds: no murmur Extremities: no edema Gastrointestinal (Abdomen): Inspection/Auscultation: normal bowel sounds; abdomen not distended Percussion/Palpation: abdomen soft; abdomen nontender Musculoskeletal: Right hip pain with movement of the right lower extremity Neurologic: Alert, awake and oriented x3. Lymphatic: no cervical or axillary lymphadenopathy Results & Data Results & Data ([facility]) Vital Signs (Past 12 Hours) Vital Signs Temp Pulse Pulse Pulse Resp BP Pulse Ox 09/05/20 07:30 85 09/05/20 06:13 36.5 C 81 18 131/89 99 09/05/20 03:09 36.8 C 66 18 111/75 95 09/04/20 23:35 101 H 09/04/20 23:29 36.4 C L 102 H 20 111/78 95 Medications Administered Current Inpatient Medications Acetaminophen (Acetaminophen 325 Mg Tab) 650 mg PO Q4H PRN PRN Reason: Pain or Fever Stop: 10/01/20 19:47 Fexofenadine HCl (Fexofenadine Hcl 180 Mg Tab) 180 mg PO DAILY [facility] Stop: 10/02/20 08:59 Last Admin: 09/05/20 07:42 Dose: 180 mg Documented by: Gabapentin (Gabapentin 400 Mg Cap) 400 mg PO TID [facility] Stop: 10/01/20 20:59 Last Admin: 09/05/20 07:43 Dose: 400 mg Documented by: Hydromorphone HCl (Hydromorphone Inj 0.5 Mg/0.5 Ml Syr) 0.5 mg IV Q4H PRN PRN Reason: Pain Stop: 09/15/20 19:24 Last Admin: 09/05/20 10:41 Dose: 0.5 mg Documented by: Levetiracetam (Levetiracetam 500 Mg Tab) 1,500 mg PO BID DENIS Stop: 10/01/20 20:59 Last Admin: 09/05/20 07:42 Dose: 1,500 mg Documented by: Lorazepam (Lorazepam 1 Mg Tab) 1 mg PO Q8H PRN PRN Reason: Anxiety Stop: 10/02/20 11:26 Last Admin: 09/05/20 07:41 Dose: 1 mg Documented by: Montelukast Sodium (Montelukast Sodium 10 Mg Tablet) 10 mg PO DAILY [facility] Stop: 10/02/20 08:59 Last Admin: 09/05/20 07:44 Dose: 10 mg Documented by: Neomycin/Polymyxin/Bacitracin (Neomycin/Polymyx/Bacitr Oint 15 Gm Tube) 1 appln EXT TID [facility] Stop: 10/05/20 13:59 Ondansetron HCl (Ondansetron Inj 2 Mg/Ml 2 Ml Vial) 4 mg IV Q6H PRN PRN Reason: Nausea Stop: 10/01/20 19:47 Pantoprazole Sodium (Pantoprazole 40 Mg Tab) 40 mg PO BID [facility] Stop: 10/01/20 20:59 Last Admin: 09/05/20 07:44 Dose: 40 mg Documented by: Polyethylene Glycol (Polyethylene (Miralax) 17 Gm Pack) 17 gm PO DAILY PRN PRN Reason: Constipation Stop: 10/01/20 19:47 Promethazine HCl (Promethazine Hcl 25 Mg Tab) 25 mg PO QID PRN PRN Reason: Nausea And Vomiting Stop: 10/01/20 19:47 Last Admin: 09/05/20 07:41 Dose: 25 mg Documented by: Sertraline HCl (Sertraline Hcl 50 Mg Tablet) 50 mg PO DAILY [facility] Stop: 10/02/20 08:59 Last Admin: 09/05/20 07:41 Dose: 50 mg Documented by: Trazodone HCl (Trazodone Hcl 50 Mg Tab) 50 mg PO HS [facility] Stop: 10/01/20 20:59 Last Admin: 09/04/20 20:49 Dose: 50 mg Documented by: (1) Fall Encounter type: initial encounter Qualified Code(s): W19.XXXA - Unspecified fall, initial encounter
[2020-09-05] MEDS: NEOMYCIN/POLYMYX/BACITR OINT 15 GM TUBE EXT SCH ×2 (13:22→20:49)
[2020-09-05] MEDS: traZODone HCL 50 MG TAB PO SCH (20:48)
[2020-09-06] MEDS: HYDROmorphone INJ 0.5 MG/0.5 ML SYR IV PRN ×5 (02:40→22:52)
[2020-09-06] MEDS: levETIRAcetam 500 MG TAB PO SCH ×2 (08:03→20:56)
[2020-09-06] MEDS: GABAPENTIN 400 MG CAP PO SCH ×3 (08:03→20:56)
[2020-09-06] MEDS: FEXOFENADINE HCL 180 MG TAB PO SCH (08:03)
[2020-09-06] MEDS: PANTOprazole 40 MG TAB PO SCH ×2 (08:04→20:57)
[2020-09-06] MEDS: SERTRALINE HCL 50 MG TABLET PO SCH (08:04)
[2020-09-06] MEDS: MONTELUKAST SODIUM 10 MG TABLET PO SCH (08:04)
[2020-09-06] MEDS: LORazepam 1 MG TAB PO PRN ×2 (08:04→20:55)
[2020-09-06] MEDS: PROMETHAZINE HCL 25 MG TAB PO PRN ×2 (08:04→20:55)
[2020-09-06] MEDS: NEOMYCIN/POLYMYX/BACITR OINT 15 GM TUBE EXT SCH ×3 (08:07→20:58)
[2020-09-06 08:30] LABS: Basophils # (auto) 0.01 K/uL (0-0.2); Basophils % (auto) 0.2 %; Eosinophils # (auto) 0.56 K/uL (0-0.5); Eosinophils % (auto) 9.4 %; Hematocrit (blood only) 29.5 % (37-47); Hemoglobin 9.2 g/dL (12.0-16.0); Immature Granulocytes # (auto) 0.01 K/uL (0.00-0.02); Immature Granulocytes % (auto) 0.2 %; Lymphocytes # (auto) 1.05 K/uL (1.2-3.4); Lymphocytes % (auto) 17.6 %; Mean Corpuscular Hemoglobin 25.7 pg (25-34); Mean Corpuscular Hgb Conc 31.2 g/dL (32-36); Mean Corpuscular Volume 82.4 fL (80-100); Mean Platelet Volume 9.4 fL (7.4-10.4); Monocytes # (auto) 0.63 K/uL (0.11-0.59); Monocytes % (auto) 10.6 %; Neutrophils # (auto) 3.71 K/uL (1.4-6.5); Platelet Count 435 K/uL (130-400); RDW Standard Deviation 57.9 fL (36.4-46.3); Red Blood Count 3.58 M/uL (4.2-5.4); White Blood Count 5.97 K/uL (4.8-10.8)
[2020-09-06 09:02] LABS: BUN Creatinine Ratio 21.6 (10-20); Calcium 9.3 mg/dl (8.5-10.1); Creatinine Clr Calc Pharmacy 132.9 ml/min; Est GFR (African American) 133.5; Est GFR (Non-African American) 115.2; Potassium 4.2 mmol/L (3.5-5.1)
--- NOTE | 2020-09-06 13:39 | Hospitalist Progress Note ---
Date of Service September 06, 2020 Assessment & Plan (1) Fall: (2) Fracture of pubic ramus: Fall Acute fracture pubic ramus Hip x-ray with acute appearing fractures of the right superior and inferior pubic rami with mild displacement of the superior pubic ramus and pubic body fractures, mild soft tissue swelling lateral to the right hip Right hip total joint arthroplasty without evidence of hardware complication CT pelvis showed acute comminuted mildly displaced right superior pubic ramus fractures.Acute nondisplaced fractures of the right inferior pubic ramus. No pathologic widening of the pubic symphysis. Moderate left hip osteoarthritis. Xray of right hib showed no fracture or dislocation within the right hand or right wrist. Continue pain control Ortho was consulted that recommended non operative management Continue Velcro wrist brace right upper extremity, Weightbearing as tolerated with walker and assist x1. PT/OT on board recommended rehab Pt is not safe to be discharged home, but she continues refusing to go to rehab We will give a small dose of oral narcotics for pain control on discharge-maybe oxycodone 2.5-5 mg every 6 hourly as needed Fall precaution Acute blood loss anemia Hemoglobin dropped to 7.2 Received 1 unit PRBC during the hospital stay Hemoglobin stable at 9.2 (3) Alcohol use disorder: No signs and/or symptoms of withdrawal Has been only on gabapentin for chronic pain and will continue She does not require any extra Ativan No withdrawal symptoms (4) Anxiety: Has been getting Ativan 1 mg p.o. every 8 hourly as needed She takes 1 Ativan and 1 Phenergan half an hour before each meals (5) Depression: (6) Von Willebrand disease: History of subdural hematoma, rectus sheath hematoma on previous admi ssions No acute bleeding, hgb stable at 9.2 SCDs for VTE (7) Seizure disorder: (8) History of gastrectomy: Seizure disorder Remote history of seizures Continue home Keppra, gabapentin Seizure precautions Anxiety Depression Continue SSRI, Ativan PRN used mainly for appetite per patient Gastroparesis History of gastrectomy Continue Protonix twice daily, promethazine Continue promethazine and Ativan prior each meals as she has been taking at home History of blindness Secondary to tobramycin History of skin reaction Transferred to [facility] last month due to suspicion for SJS/TENS reaction to abx in setting of MSSA bacteremia. 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 and was treated with triamcinolone cream Also developed adrenal insufficiency requiring stress dose steroids - thought to be due to use of high potency topical steroids for her rash Following with derm Skin issues resolving, mild appearance of hives on admission on neck, arms Monitor skin appearance closely Note multiple allergies to antibiotics DVT Ppx: SCDs Code status: DNR PCP: Kathia Dispo: Received inpatient rehab Admission and Anticipated Discharge Date Admission Date: September 01, 2020 Subjective Pt was seen and examined for follow of fall Lying in bed with no distress Pt said that pain improves She said that she was able to ambulate to the bathroom She continue refusing to go to rehab I told her that she is not safe to go home and she is at risk of fall and more fracture Denies any chest pain, palpitation, dizziness and SOB Review of Systems 2 Review of Systems: All systems reviewed & are unremarkable except as noted in Subjective Physical Exam Physical Exam: General- No acute distress Head- atraumatic Eyes- Legally blind ENT- oropharynx clear Neck- supple, no JVD Lungs- clear to auscultation Heart- regular rhythm; no murmur Abdomen- normal bowel sounds, soft, nontender Extremities- no calf tenderness Neuro- alert, oriented x 3; PERRL, EOMI; no facial palsy; no dysarthria Skin- warm & dry Results & Data Results & Data ([facility]) Vital Signs (Past 12 Hours) Vital Signs Temp Pulse Pulse Pulse Resp BP BP 09/06/20 12:17 36.4 C L 104 H 18 91/61 L 09/06/20 07:24 83 09/06/20 06:31 36.8 C 80 20 96/63 L 09/06/20 03:29 37 C 69 12 92/62 L Pulse Ox 09/06/20 12:17 98 09/06/20 07:24 09/06/20 06:31 95 09/06/20 03:29 93 (1) Fall Encounter type: initial encounter Qualified Code(s): W19.XXXA - Unspecified fall, initial encounter
[2020-09-06] MEDS: traZODone HCL 50 MG TAB PO SCH (20:55)
[2020-09-07] MEDS: HYDROmorphone INJ 0.5 MG/0.5 ML SYR IV PRN ×4 (03:57→18:26)
[2020-09-07] MEDS: NEOMYCIN/POLYMYX/BACITR OINT 15 GM TUBE EXT SCH ×3 (08:26→21:43)
[2020-09-07] MEDS: MONTELUKAST SODIUM 10 MG TABLET PO SCH (08:27)
[2020-09-07] MEDS: PANTOprazole 40 MG TAB PO SCH ×2 (08:27→21:41)
[2020-09-07] MEDS: GABAPENTIN 400 MG CAP PO SCH ×3 (08:27→21:40)
[2020-09-07] MEDS: SERTRALINE HCL 50 MG TABLET PO SCH (08:27)
[2020-09-07] MEDS: levETIRAcetam 500 MG TAB PO SCH ×2 (08:27→21:41)
[2020-09-07] MEDS: FEXOFENADINE HCL 180 MG TAB PO SCH (08:28)
[2020-09-07] MEDS: PROMETHAZINE HCL 25 MG TAB PO PRN (17:00)
[2020-09-07] MEDS: LORazepam 1 MG TAB PO PRN (17:00)
[2020-09-07] MEDS ORDERED: diphenhydrAMINE Capsule 25 MG CAP PO PRN (19:36)
[2020-09-07] MEDS ORDERED: LORazepam 1 MG TAB PO PRN (20:16)
[2020-09-07] MEDS: oxyCODONE HCL IR 5 MG TAB (IMMEDIATE RELEASE) PO PRN (21:40)
[2020-09-07] MEDS: traZODone HCL 50 MG TAB PO SCH (21:40)
[2020-09-07] MEDS ORDERED: KETOROLAC TROMETHAMINE 15 MG/ML VIAL IV ONE (23:42)
[2020-09-08] MEDS: oxyCODONE HCL IR 5 MG TAB (IMMEDIATE RELEASE) PO PRN ×2 (05:25→11:23)
[2020-09-08] MEDS: PANTOprazole 40 MG TAB PO SCH (08:22)
[2020-09-08] MEDS: GABAPENTIN 400 MG CAP PO SCH ×2 (08:22→12:52)
[2020-09-08] MEDS: PROMETHAZINE HCL 25 MG TAB PO PRN ×2 (08:22→12:54)
[2020-09-08] MEDS: levETIRAcetam 500 MG TAB PO SCH (08:23)
[2020-09-08] MEDS: MONTELUKAST SODIUM 10 MG TABLET PO SCH (08:23)
[2020-09-08] MEDS: SERTRALINE HCL 50 MG TABLET PO SCH (08:23)
[2020-09-08] MEDS: FEXOFENADINE HCL 180 MG TAB PO SCH (08:23)
[2020-09-08] MEDS: NEOMYCIN/POLYMYX/BACITR OINT 15 GM TUBE EXT SCH ×2 (08:24→12:55)
--- NOTE | 2020-09-08 09:43 | Hospitalist Progress Note ---
Date of Service September 07, 2020 Assessment & Plan (1) Fall: (2) Fracture of pubic ramus: Fall Acute fracture pubic ramus Hip x-ray with acute appearing fractures of the right superior and inferior pubic rami with mild displacement of the superior pubic ramus and pubic body fractures, mild soft tissue swelling lateral to the right hip Right hip total joint arthroplasty without evidence of hardware complication CT pelvis showed acute comminuted mildly displaced right superior pubic ramus fractures.Acute nondisplaced fractures of the right inferior pubic ramus. No pathologic widening of the pubic symphysis. Moderate left hip osteoarthritis. Xray of right hib showed no fracture or dislocation within the right hand or right wrist. Continue pain control Ortho was consulted that recommended non operative management Continue Velcro wrist brace right upper extremity, Weightbearing as tolerated with walker and assist x1. PT/OT on board recommended rehab Pt is not safe to be discharged home, but she continues refusing to go to rehab We will give a small dose of oral narcotics for pain control on discharge-maybe oxycodone 2.5-5 mg every 6 hourly as needed Fall precaution Acute blood loss anemia Hemoglobin dropped to 7.2 Received 1 unit PRBC during the hospital stay Hemoglobin stable at 9.2 (3) Alcohol use disorder: No signs and/or symptoms of withdrawal Has been only on gabapentin for chronic pain and will continue She does not require any extra Ativan No withdrawal symptoms (4) Anxiety: Has been getting Ativan 1 mg p.o. every 8 hourly as needed She takes 1 Ativan and 1 Phenergan half an hour before each meals (5) Depression: (6) Von Willebrand disease: History of subdural hematoma, rectus sheath hematoma on previous admi ssions No acute bleeding, hgb stable at 9.2 SCDs for VTE (7) Seizure disorder: (8) History of gastrectomy: Seizure disorder Remote history of seizures Continue home Keppra, gabapentin Seizure precautions Anxiety Depression Continue SSRI, Ativan PRN used mainly for appetite per patient Gastroparesis History of gastrectomy Continue Protonix twice daily, promethazine Continue promethazine and Ativan prior each meals as she has been taking at home 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 and was treated with triamcinolone cream Also developed adrenal insufficiency requiring stress dose steroids - thought to be due to use of high potency topical steroids for her rash Following with derm Skin issues resolving, mild appearance of hives on admission on neck, arms Monitor skin appearance closely Note multiple allergies to antibiotics DVT Ppx: SCDs Code status: DNR PCP: Kathia Dispo: Received inpatient rehab Admission and Anticipated Discharge Date Admission Date: September 01, 2020 Subjective Pt was seen and examined for follow of fall on 09/07/20 Sitting in chair with no distress Pt raúl that her pain improves She said that she walked with therapy today She continue refusing to go to rehab I told her that she is not safe to go home and she is at risk of fall and more fracture Denies any chest pain, palpitation, dizziness and SOB Review of Systems Review of Systems: All systems reviewed & are unremarkable except as noted in Subjective Physical Exam Physical Exam: General- No acute distress Head- atraumatic Eyes- Legally blind ENT- oropharynx clear Neck- supple, no JVD Lungs- clear to auscultation Heart- regular rhythm; no murmur Abdomen- normal bowel sounds, soft, nontender Extremities- no calf tenderness Neuro- alert, oriented x 3; PERRL, EOMI; no facial palsy; no dysarthria Skin- warm & dry Results & Data Results & Data ([facility]) Vital Signs (Past 12 Hours) Vital Signs Temp Pulse Pulse Pulse Resp BP Pulse Ox 09/08/20 07:53 37.0 C 86 20 118/80 96 09/08/20 07:30 84 09/08/20 03:05 36.7 C 95 H 14 96/73 L 95 09/08/20 00:00 104 H 09/07/20 23:36 36.6 C 97 H 18 107/74 97 09/07/20 22:00 Pulse Ox 09/08/20 07:53 09/08/20 07:30 09/08/20 03:05 09/08/20 00:00 09/07/20 23:36 09/07/20 22:00 95 (1) Fall Encounter type: initial encounter Qualified Code(s): W19.XXXA - Unspecified fall, initial encounter
[2020-09-08] MEDS ORDERED: TRIAMCINOLONE ACET 0.025% CR 15 GM TUBE EXT SCH (10:30)
[2020-09-08] MEDS ORDERED: KETOROLAC TROMETHAMINE 15 MG/ML VIAL IV ONE (13:19)
--- NOTE | 2020-09-08 14:19 | Hospitalist Progress Note ---
Date of Service September 08, 2020 Assessment & Plan (1) Fall: (2) Fracture of pubic ramus: Fall Acute fracture pubic ramus Hip x-ray with acute appearing fractures of the right superior and inferior pubic rami with mild displacement of the superior pubic ramus and pubic body fractures, mild soft tissue swelling lateral to the right hip Right hip total joint arthroplasty without evidence of hardware complication CT pelvis showed acute comminuted mildly displaced right superior pubic ramus fractures.Acute nondisplaced fractures of the right inferior pubic ramus. No pathologic widening of the pubic symphysis. Moderate left hip osteoarthritis. Xray of right hib showed no fracture or dislocation within the right hand or right wrist. Continue pain control Ortho was consulted that recommended non operative management Continue Velcro wrist brace right upper extremity, Weightbearing as tolerated with walker and assist x1. PT/OT on board recommended rehab Pt is not safe to be discharged home, but she continues refusing to go to rehab We will give a small dose of oral narcotics for pain control on discharge-maybe oxycodone 2.5-5 mg every 6 hourly as needed Will at least recommend to continue home PT/OT Fall precaution Acute blood loss anemia Hemoglobin dropped to 7.2 Received 1 unit PRBC during the hospital stay Hemoglobin stable at 9.2 (3) Alcohol use disorder: No signs and/or symptoms of withdrawal Has been only on gabapentin for chronic pain and will continue She does not require any extra Ativan No withdrawal symptoms (4) Anxiety: (5) Depression: Has been getting Ativan 1 mg p.o. every 8 hourly as needed She takes 1 Ativan and 1 Phenergan half an hour before each meals Continue SSRI, Ativan PRN used mainly for appetite per patient (6) Von Willebrand disease: History of subdural hematoma, rectus sheath hematoma on previous admissions No acute bleeding, hgb stable at 9.2 SCDs for VTE (7) Seizure disorder: Remote history of seizures Continue home Keppra, gabapentin Seizure precaution (8) History of gastrectomy: History of gastrectomy Continue Protonix twice daily, promethazine Continue promethazine and Ativan prior each meals as she has been taking at home Continue vitamin supplement 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 and was treated with triamcinolone cream Also developed adrenal insufficiency requiring stress dose steroids - thought to be due to use of high potency topical steroids for her rash Following with derm Skin issues resolving, mild appearance of hives on admission on neck, arms Monitor skin appearance closely Note multiple allergies to antibiotics DVT Ppx: SCDs Code status: DNR PCP: Kathia Dispo: Received inpatient rehab Refused to go to rehab Admission and Anticipated Discharge Date Admission Date: September 01, 2020 Subjective Pt was seen and examined for follow of fall Lying in bed with no distress Pt said that she walked longer with therapy today She said that she is a little sore She continues refusing to go to rehab. She said that she will be better at home I told her that she is not safe to go home and she is at risk of fall and fracture She said that she would not change her mine and no matter what I said that she would not go to rehab Denies any chest pain, palpitation, dizziness and SOB Review of Systems Review of Systems: All systems reviewed & are unremarkable except as noted in Subjective Physical Exam Physical Exam: General- No acute distress Head- atraumatic Eyes- Legally blind ENT- oropharynx clear Neck- supple, no JVD Lungs- clear to auscultation Heart- regular rhythm; no murmur Abdomen- normal bowel sounds, soft, nontender Extremities- no calf tenderness Neuro- alert, oriented x 3; PERRL, EOMI; no facial palsy; no dysarthria Skin- warm & dry Results & Data Results & [facility] ([facility]) Vital Signs (Past 12 Hours) Vital Signs Temp Pulse Pulse Pulse Resp BP BP 09/08/20 13:21 36.4 C L 89 95 H 19 113/81 102/67 09/08/20 11:35 36.4 C L 89 19 113/81 09/08/20 07:53 37.0 C 86 20 118/80 09/08/20 07:30 84 09/08/20 03:05 36.7 C 95 H 14 96/73 L Pulse Ox 09/08/20 13:21 97 09/08/20 11:35 97 09/08/20 07:53 96 09/08/20 07:30 09/08/20 03:05 95 (1) Fall Encounter type: initial encounter Qualified Code(s): W19.XXXA - Unspecified fall, initial encounter
--- NOTE | 2020-09-10 08:48 | Discharge Summary ---
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 Patient with history of recurrent falls for several months. Was at a friend's house last evening and tripped over the couch, falling onto her R hip. Developed immediate pain that was worse with ambulation. Remained on the ground until about 2:30 AM when she was helped by her friend to the couch. Was hoping pain would subside or earlier today but it remained very difficult for her to ambulate so she came to the ED this afternoon for further evaluation. Patient experiencing pain of right hip with any type of movement. Pain radiating down right leg and across lower portion of right back. No groin pain. Improved with IV morphine given in ED. Denies any fever, chills, lightheadedness or headache. No chest pain, palpitations, shortness of breath, nausea, vomiting, abdominal pain, dysuria, diarrhea constipation. Has not had much to drink or eat since last evening. Admission Exam Per Admitting Provider General Appearance: WD/WN, vitals as above, NAD, sitting up in bed, pleasant, conversing easily Head: normocephalic, atraumatic Eyes: Blind in both eyes, PERRL, conjunctivae normal, anicteric sclerae ENT: external ear and nose normal, oropharynx normal Neck: normal visual inspection, trachea midline, no thyromegaly Respiratory: normal respiratory effort, lungs clear to auscultation, no wheeze, rales, rhonchi. No accessory muscle use Cardiovascular: regular rate, rhythm, no murmur, normal peripheral pulses, no BLE edema. Vessels: no JVD Chest: normal inspection of chest Abdomen/GI: normal bowel sounds, soft, nontender, no hepatosplenomegaly Extremities/Musculoskeletal: Pain to palpation of right hip. No visual deformities noted. Skin intact. No cyanosis or clubbing, extremities motor strength 5/5 Neurologic: PERRL, EOMI, accommodation nl, no face palsy, no dysarthria, CN's II-XI intact bilaterally and moves all extremities Psychiatric: A+Ox3, euthymic affect Skin: normal color, warm/dry, areas of erythematous slightly raised wheals around neck and bilateral arms, chronic condition per patient Principal Diagnosis Fracture of pubic ramus: Acute blood loss anemia Alcohol use disorder: Anxiety: Depression: Von Willebrand disease: Seizure disorder: History of gastrectomy: History of blindness Discharge Exam General- No acute distress Head- atraumatic Eyes- Legally blind ENT- oropharynx clear Neck- supple, no JVD Lungs- clear to auscultation Heart- regular rhythm; no murmur Abdomen- normal bowel sounds, soft, nontender Extremities- no calf tenderness Neuro- alert, oriented x 3; PERRL, EOMI; no facial palsy; no dysarthria Skin- warm & dry Discharge Data Allergies Allergy/AdvReac Type Severity Reaction Status Date / Time iron dextran complex Allergy Severe SOB, heart Verified 09/01/20 15:15 racing (see comments) cat dander Allergy Intermediate eye Verified 09/01/20 15:15 watering ceftriaxone Allergy Intermediate Hives Verified 09/01/20 15:15 ciprofloxacin Allergy Intermediate lips Verified 09/01/20 15:15 burning/peeling doxycycline Allergy Intermediate hives, Verified 09/01/20 15:15 vomiting latex Allergy Intermediate mouth Verified 09/01/20 15:15 hives/burning sensation Penicillins Allergy Intermediate Hives Verified 09/01/20 15:15 Quinolones Allergy Intermediate Hives Verified 09/01/20 15:15 Sulfa (Sulfonamide Allergy Intermediate hives Verified 09/01/20 15:15 Antibiotics) Aminoglycosides Allergy Unknown unknown Verified 09/01/20 15:15 reaction tobramycin AdvReac Severe blindness Verified 09/01/20 15:15 citalopram AdvReac Mild restlessnes Verified 09/01/20 15:15 s Ferric Oxide Allergy Intermediate hives (see Uncoded 09/01/20 15:15 comments) Consultations 09/01/20 16:12 ED Decision to Admit Stat 09/01/20 16:37 Consult Orthopedic Surgery Routine Ordered Studies 09/01/20 13:36 CT cervical spine wo con Stat CT head/brain wo con Stat 09/01/20 19:48 CT pelvis wo con Routine CT pelvis wo con HISTORY: 50 years-old Female better eval of acute pelvic rami fractures acute pelvic pain status post fall COMPARISON: Radiographs of the right hip of same day, pelvis radiographs 07/07/2020 TECHNIQUE: Multiple axial CT images of the pelvis were obtained without the use of IV contrast. 3-D rendering images were also obtained. A dose lowering technique was used consistent with the principals of RUDDY. FINDINGS: Artifact from right hip total joint arthroplasty limits the study. Beckett catheter noted within a decompressed urinary bladder lumen. There are several prominent fluid-filled loops of small bowel in the lower pelvis. Varices in the anterior abdominal wall. Healed chronic left superior and inferior pubic rami fractures. There is an acute nondisplaced fracture of the right inferior pubic ramus. Acute comminuted fractures are noted involving the proximal aspect of the inferior pubic ramus with additional acute comminuted slightly displaced fractures of the right superior pubic ramus extending into the pubic body. No widening of the pubic symphysis. The imaged sacrum and SI joints appear intact. Degenerative changes of the imaged lumbar spine. No additional acute fracture or subluxation. Moderate left hip osteoarthritis. IMPRESSION: 1. Acute comminuted mildly displaced right superior pubic ramus fractures. 2. Acute nondisplaced fractures of the right inferior pubic ramus. No pathologic widening of the pubic symphysis. 3. Healed chronic left pubic ring fractures. 4. Right hip total joint arthroplasty without evidence of complication. 5. Moderate left hip osteoarthritis. ACT 112: Negative or not required by law. The above report was generated using voice recognition software. It may contain grammatical, syntax or spelling errors. Electronically signed by: Scott Blanco M.D. 09/02/2020 8:11 AM Dictated: 09/02/20 08Transcribed: 09/02/20 08 XR hip RT min 2V HISTORY: 50 years-old Female fall acute right hip pain status post fall COMPARISON: Pelvis radiograph and CT abdomen and pelvis 07/07/2020 TECHNIQUE: 2 views the right hip FINDINGS: Demineralized appearance of the bones. Right hip total joint arthroplasty. No evidence of hardware complication, acute fracture or dislocation. Soft tissue swelling lateral to the right hip. Dystrophic calcifications adjacent to the greater trochanter. Chronic left pelvic ring fracture deformities. Fractures of the right pubic body, inferior and superior pubic rami are new from comparison. Mild displacement of the superior pubic ring fracture. IMPRESSION: 1. Acute appearing fractures of the right superior and inferior pubic rami with mild displacement of the superior pubic ramus and pubic body fractures. 2. Mild soft tissue swelling lateral to the right hip. 3. Right hip total joint arthroplasty without evidence of hardware complication. ACT 112: Negative or not required by law. The above report was generated using voice recognition software. It may contain grammatical, syntax or spelling errors. Electronically signed by: Scott Blanco M.D. 09/01/2020 2:49 PM Dictated: 09/01/20 1445Transcribed: 09/01/20 1445 XR chest 1V portable HISTORY: 50 years-old Female fall . Acute chest trauma status post fall COMPARISON: Chest radiograph 07/07/2020 TECHNIQUE: Portable supine AP view the chest FINDINGS: Cardiomediastinal and hilar silhouettes are within normal limits. Trace left pleural effusion has decreased in size from comparison. Numerous healing subacute bilateral rib fractures. No pneumothorax or overt pulmonary edema. D egenerative changes of the spine. Partially imaged are at hardware of the right humerus. IMPRESSION: 1. Numerous healing subacute bilateral rib fractures. No pneumothorax. 2. Trace left pleural effusion has decreased in size from comparison. ACT 112: Negative or not required by law. The above report was generated using voice recognition software. It may contain grammatical, syntax or spelling errors. Electronically signed by: Scott Blanco M.D. 09/01/2020 2:50 PM Dictated: 09/01/20 1449Transcribed: 09/01/20 1449 RIGHT HAND 3 VIEWS, RIGHT WRIST 4 VIEWS HISTORY: Right hand and wrist pain. fall eval for fx COMPARISON: Right hand 11/26/2018. FINDINGS: The bones are osteopenic. Mild dorsal soft tissue swelling within the right wrist. No fracture or dislocation within the right hand or right wrist. The scaphoid appears intact. No radiopaque foreign bodies. IMPRESSION: No fracture or dislocation within the right hand or right wrist. ACT 112: Negative or not required by law. Electronically signed by: Hadley Soni M.D. 09/01/2020 2:49 PM Dictated: 09/01/20 1445Transcribed: 09/01/20 1445 XR shoulder RT min 2V routine CLINICAL HISTORY: Right shoulder pain status post trauma COMPARISON: November 22, 2018 DISCUSSION: There is an internally fixated old right humeral fracture. No acute fractures are visualized. There is no dislocation. IMPRESSION: 1. Old postsurgical post matter changes 2. No acute fractures or dislocations. ACT 112: Negative or not required by law. Electronically signed by: Saurabh Anderson M.D. 09/01/2020 2:47 PM Dictated: 09/01/20 1446Transcribed: 09/01/[address] head/brain wo con CLINICAL HISTORY: Head pain status post trauma COMPARISON STUDY: 07/07/2020 TECHNIQUE: Axial CT of the brain is performed from the vertex to the skull base. IV contrast was not administered for this examination. A dose lowering technique was utilized adhering to the principles of ALARA. CT DOSE: 922.55 mGy.cm FINDINGS: No intra or extra-axial mass lesions are visualized. There is no CT evidence of acute cortical infarction. There is no evidence of midline shift. There is no acute hemorrhage. No calvarial fractures are visualized. There is interval decrease in the size of the left frontal subdural with a trace residual. There are and lateral white matter hypodensities likely on a small vessel basis. There is no evidence of pathologic ventricular dilatation. There is minor polypoid mucosal thickening within the right maxillary sinus. IMPRESSION: 1. No acute intracranial findings 2. Near complete interval resolution of the previously described left frontal subdural hematoma with a trace residual ACT 112: Negative or not required by law. Electronically signed by: Saurabh Anderson M.D. 09/01/2020 3:10 PM Dictated: 09/01/20 1507Transcribed: 09/01/20 1507 RIGHT HAND 3 VIEWS, RIGHT WRIST 4 VIEWS HISTORY: Right hand and wrist pain. fall eval for fx COMPARISON: Right hand 11/26/2018. FINDINGS: The bones are osteopenic. Mild dorsal soft tissue swelling within the right wrist. No fracture or dislocation within the right hand or right wrist. The scaphoid appears intact. No radiopaque foreign bodies. IMPRESSION: No fracture or dislocation within the right hand or right wrist. ACT 112: Negative or not required by law. Electronically signed by: Hadley Soni M.D. 09/01/2020 2:49 PM Dictated: 09/01/20 1445Transcribed: 09/01/[address] OF THE CERVICAL SPINE CLINICAL HISTORY: Neck pain status post trauma COMPARISON STUDY: July 07, 2020 CT DOSE: TECHNIQUE: CT scan of the cervical spine was performed from the skull base to the thoracic inlet. Images are reviewed in the axial, sagittal, and coronal planes. IV contrast was not administered for this examination. A dose lowering technique was utilized adhering to the principles of ALARA. FINDINGS: The visualized portions of the lung apices reveal no evidence of pneumothorax. Right paraspinal nodularity at the apex is felt to represent prominent vessels. The prevertebral soft tissues are normal. No acute fractures or subluxations are visualized. There are old endplate compression deformities at the C7,T1 and T2 levels. There are minor degenerative changes present. IMPRESSION: 1. Old endplate compression deformities of C7, T1, and T2 levels 2. No acute fractures or traumatic subluxations. ACT 112: Negative or not required by law. Electronically signed by: Saurabh Anderson M.D. 09/01/2020 3:14 PM Dictated: 09/01/20 1510Transcribed: 09/01/20 1510 Hospital Course (1) Fall: (2) Fracture of pubic ramus: Fall Acute fracture pubic ramus Hip x-ray with acute appearing fractures of the right superior and inferior pubic rami with mild displacement of the superior pubic ramus and pubic body fractures, mild soft tissue swelling lateral to the right hip Right hip total joint arthroplasty without evidence of hardware complication CT pelvis showed acute comminuted mildly displaced right superior pubic ramus fractures.Acute nondisplaced fractures of the right inferior pubic ramus. No pathologic widening of the pubic symphysis. Moderate left hip osteoarthritis. Xray of right hib showed no fracture or dislocation within the right hand or right wrist. Continue pain control Ortho was consulted that recommended non operative management Continue Velcro wrist brace right upper extremity, Weightbearing as tolerated with walker and assist x1. PT/OT on board recommended rehab Pt is not safe to be discharged home, but she continues refusing to go to rehab We will give a small dose of oral narcotics for pain control on discharge-maybe oxycodone 2.5-5 mg every 6 hourly as needed Will at least recommend to continue home PT/OT Fall precaution Acute blood loss anemia Hemoglobin dropped to 7.2 Received 1 unit PRBC during the hospital stay Hemoglobin stable at 9.2 (3) Alcohol use disorder: No signs and/or symptoms of withdrawal Has been only on gabapentin for chronic pain and will continue She does not require any extra Ativan No withdrawal symptoms (4) Anxiety: Has been getting Ativan 1 mg p.o. every 8 hourly as needed She takes 1 Ativan and 1 Phenergan half an hour before each meals (5) Depression: Has been getting Ativan 1 mg p.o. every 8 hourly as needed She takes 1 Ativan and 1 Phenergan half an hour before each meals Continue SSRI, Ativan PRN used mainly for appetite per patient (6) Von Willebrand disease: History of subdural hematoma, rectus sheath hematoma on previous admissions No acute bleeding, hgb stable at 9.2 SCDs for VTE (7) Seizure disorder: Remote history of seizures Continue home Keppra, gabapentin Seizure precaution (8) History of gastrectomy: History of gastrectomy Continue Protonix twice daily, promethazine Continue promethazine and Ativan prior each meals as she has been taking at home Continue vitamin supplement History of blindness Secondary to tobramycin Advised pt to ask her physician to help her apply for a life alert to use in emergency situation History of skin reaction [place] [facility] [place] due to suspicion for SJS/TENS reaction to abx in setting of MSSA bacteremia. 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 and was treated with triamcinolone cream Also developed adrenal insufficiency requiring stress dose steroids - thought to be due to use of high potency topical steroids for her rash Following with derm Skin issues resolving, mild appearance of hives on admission on neck, arms Monitor skin appearance closely Note multiple allergies to antibiotics DVT Ppx: SCDs Code status: DNR PCP: Kathia Dispo: Received inpatient rehab Refused to go to rehab Total Time Total Time Spent Total Time Spent (In Minutes): 35 minutes Total Time Includes: Examination of the Patient, Discharge Planning, Medication Reconciliation, Communication With Other Providers and Other Discharge Plan Discharge Items Patient Disposition: Home - Home Health Services Reason For Visit: FALL, PUBIC RAMI FRACTURE Discharge Diagnosis: Fracture of pubic ramus: Acute blood loss anemia Alcohol use disorder: Anxiety: Depression: Von Willebrand disease: Seizure disorder: History of gastrectomy: History of blindness Activity: As commented below Non-emergency contact: Primary Care Provider Call non-emergency contact if: you have any medication questions Follow-up/Referrals: Jaspal Bae MD [Primary Care Provider] - (Date & Time 09/11/2020 11:00 AM Provider Jaspal Bae III, MD Department [facility] ) Diet: Regular Addtl Attending Provider Instructions: Follow up with your primary care provider Dr. Bae on 09/11/2020 at 11:00 AM at the [facility] (please call for the appointment) Continue physical and occupational therapy Continue to wear Velcro wrist brace in the right upper extremity Continue weightbearing as tolerated with walker and assist x1. Fall precaution Continue pain control as needed Please hold next dose of your narcotic if you become drowsy and lethargy Do not drive or operate any machine after taking the narcotic do not take narcotic and Ativan together due to risk of respiratory distress, lethargy, confusion, fall and Please do not use any alcohol while on Ativan and narcotic Check CBC in 1 week to monitor your hemoglobin Pending Studies at Discharge: No Stand-Alone Forms: [facility], Smoking Cessation Medications and DC Order Prescriptions: New oxycodone 5 mg tablet 2.5 mg PO Q8H PRN (Reason: pain) Qty: 10 RF: 0 Continued levetiracetam [Keppra] 500 mg tablet 1,500 mg PO BID RF: 0 gabapentin 400 mg capsule 400 mg PO TID RF: 0 montelukast 10 mg tablet 10 mg PO DAILY RF: 0 lorazepam 1 mg tablet 1 mg PO Q8H PRN (Reason: Anxiety) RF: 0 pantoprazole [Protonix] 40 mg tablet,delayed release (DR/EC) 40 mg PO BID RF: 0 fexofenadine [Maame Allergy] 180 mg Tablet 180 mg PO DAILY RF: 0 trazodone 50 mg tablet 50 mg PO HS RF: 0 sertraline 50 mg tablet 50 mg PO DAILY RF: 0 cyclobenzaprine 10 mg tablet 10 mg PO TID PRN (Reason: muscle spasms) RF: 0 lidocaine 4 % Adhesive Patch,Medicated 1 patch TOPICAL BID PRN (Reason: Pain) RF: 0 promethazine 25 mg tablet 25 mg PO QID PRN (Reason: Nausea And Vomiting) RF: 0 Discharge Orders: Discharge Order (Routine); Ordered 09/08/20 Ordered By: Jose Alonso Admission Data Admit Date/Time: 09/01/20 16:37 Attending Provider: Jose Alonso Admit Provider: Mary Zhang Primary Care Provider: Jaspal Bae Other Providers: Rc Rebollar ; Mary Zhang ; [facility] Other Interventions: Discharge Summary Assessment (RN) Last Done: 09/08/20 15:06
== END 2020-09-08 15:45 | disposition home health service (06) | DRG 543 ==
LOC: ED 13:23 → INTOOBSV 16:37 → 2W 16:37 → OBSVTOIN 16:37 → SUATTDRO 16:37 → 2W 19:26

== ENCOUNTER 2021-01-08 15:16 | Inpatient (IN) ==
--- NOTE | 2021-01-08 15:51 | Communication Note ---
Date of Service: January 08, 2021 I personally saw the patient. Patient's case was discussed with Dr. Campoverde, ED attending, and I participated in MDM. Please see attending documentation for full details.
--- NOTE | 2021-01-08 15:58 | Emergency Department Note ---
History of Present Illness General Chief complaint: Seizure Time Seen by Provider: 01/08/21 15:37 Source: patient, RN notes reviewed and old records reviewed Mode of arrival: ambulatory Limitations: other (Initially she is postictal) History of Present Illness Maximum Pain Intensity: 3 This patient is brought in by EMS after apparently having several seizures today. Initially upon arrival she was altered and my resident saw her by the time I saw her shortly after she seems much more oriented she knows she is in the ER she knows the place she answers most questions appropriately. She tells me she does have a headache. She has been vomiting for a few days and has some mild abdominal discomfort. She says she is been taking her medications. She is had no fever or chills. Denies any significant injuries. She does have a very complex medical history Home Medications Medication Instructions Recorded Confirmed Type pantoprazole 40 mg tablet,delayed 40 mg PO BID 01/29/18 01/08/21 History release (Protonix) levetiracetam 500 mg tablet 1,500 mg PO BID 07/07/18 01/08/21 History (Keppra) gabapentin 400 mg capsule 400 mg PO TID 11/18/18 01/08/21 History fexofenadine 180 mg tablet 180 mg PO DAILY 09/22/19 01/08/21 History (Maame Allergy) lorazepam 1 mg tablet 0.5 - 1 mg PO Q8H PRN 04/12/20 01/08/21 History sertraline 50 mg tablet 50 mg PO DAILY 07/07/20 01/08/21 History trazodone 50 mg tablet 50 mg PO HS 07/07/20 01/08/21 History cyclobenzaprine 10 mg tablet 10 mg PO TID PRN 09/01/20 01/08/21 History lidocaine 4 % topical patch 1 patch TOPICAL DAILY PRN 09/01/20 01/08/21 History promethazine 25 mg tablet 25 mg PO Q8H PRN 09/01/20 01/08/21 History oxycodone 5 mg tablet 2.5 mg PO Q8H PRN #10 tab 09/08/20 01/08/21 Rx albuterol sulfate 90 mcg/actuation 2 puff INHALATION QID PRN 01/08/21 01/08/21 History aerosol inhaler Allergies Allergy/AdvReac Type Severity Reaction Status Date / Time iron dextran complex Allergy Severe SOB, heart Verified 01/08/21 20:18 racing (see comments) cat dander Allergy Intermediate eye Verified 01/08/21 20:18 watering ceftriaxone Allergy Intermediate Hives Verified 01/08/21 20:18 ciprofloxacin Allergy Intermediate lips Verified 01/08/21 20:18 burning/peeling doxycycline Allergy Intermediate hives, Verified 01/08/21 20:18 vomiting latex Allergy Intermediate mouth Verified 01/08/21 20:18 hives/burning sensation Penicillins Allergy Intermediate Hives Verified 01/08/21 20:18 Quinolones Allergy Intermediate Hives Verified 01/08/21 20:18 Sulfa (Sulfonamide Allergy Intermediate hives Verified 01/08/21 20:18 Antibiotics) Aminoglycosides Allergy Unknown unknown Verified 01/08/21 20:18 reaction tobramycin AdvReac Severe blindness Verified 09/01/20 15:15 citalopram AdvReac Mild restlessnes Verified 09/01/20 15:15 s Ferric Oxide Allergy Intermediate hives (see Uncoded 09/01/20 15:15 comments) Past Med/Surg History Medical History (Updated 01/08/21 @ 20:34 by Matt Campoverde MD) Anemia hx of blood transfusion (post-operatively 10/2018) Anxiety 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 Lanza Surgical History H/O foot surgery RT HEEL SURGERY X 2 (HARDWARE INTACT) TOE CORRECTION X 3 (PINS INTACT ON RT FOOT) H/O shoulder surgery RT HUMERUS FX REPAIRED (HARDWARE INTACT) H/O wisdom tooth extraction H/O wrist surgery LEFT WRIST X 2 SURGERIES History of cholecystectomy History of colonoscopy History of esophagogastroduodenoscopy (EGD) History of gastrectomy secondary to PUD (OVER 10 YEARS AGO) History of hand surgery LEFT HAND FINGER REPAIR History of hysterectomy History of vascular access device MEDIPORT INTACT Family History Father Diabetes Mother Von Willebrand disease Grandmother (Paternal) Family hx of colon cancer Social History Smoking Status: Never smoker Second Hand Exposure: No; Hx Alcohol Use: Yes Alcohol type: wine Hx Substance Use: No Preferred Language: Latvian Communication Ability: Effective Director Of Exhibits Required: No Beliefs That Will Affect Care: None marital status: Legally Current Living Situation: Alone Current Living Situation Comment: neighbors help occasionally with needs current occupational status: disabled How many Children do You have: 2 Feels Safe at Home: Yes Assistive Devices: Walker Review of Systems Unobtainable due to reduced consciousness Physical Exam Vital Signs Vital Signs - 24 hr 01/08/21 15:20 01/08/21 15:25 01/08/21 15:34 Temperature 36.8 C Temperature Source Oral Pulse Rate 87 85 Pulse Rate [Radial] Pulse Rate from SpO2 Sensor 87 Pulse Rhythm Regular Pulse Rhythm [Radial] Pulse Strength Normal Pulse Strength [Radial] Respiratory Rate 15 17 Respiratory Effort / Characteristics Non-Labored Respiratory Depth Normal Respiratory Pattern Regular Blood Pressure 137/94 137/94 Blood Pressure [Right Arm] Blood Pressure Mean 108 108 Blood Pressure Mean [Right Arm] Blood Pressure Position Lying Blood Pressure Position [Right Arm] Pulse Oximetry 96 97 95 Oxygen Delivery Method Room Air Room Air Sepsis Recent Fever Within 48 Hours No Sepsis New/Unexplained Change in Mental Status Yes Sepsis Action Taken by Nursing No Action Required 01/08/21 15:35 01/08/21 16:54 01/08/21 16:55 Temperature 36.7 C 38.4 C H Temperature Source Oral Oral Pulse Rate 90 Pulse Rate [Radial] 78 137 H Pulse Rate from SpO2 Sensor 86 Pulse Rhythm Pulse Rhythm [Radial] Regular Regular Pulse Strength Pulse Strength [Radial] Normal Normal Respiratory Rate 16 16 17 Respiratory Effort / Characteristics Non-Labored Non-Labored Respiratory Depth Normal Normal Respiratory Pattern Regular Regular Blood Pressure 128/83 Blood Pressure [Right Arm] 137/94 133/87 Blood Pressure Mean 98 Blood Pressure Mean [Right Arm] 108 102 Blood Pressure Position Blood Pressure Position [Right Arm] Lying Pulse Oximetry 96 94 95 Oxygen Delivery Method Room Air Room Air Sepsis Recent Fever Within 48 Hours Sepsis New/Unexplained Change in Mental Status Sepsis Action Taken by Nursing 01/08/21 17:30 01/08/21 18:00 01/08/21 18:31 Temperature Temperature Source Pulse Rate 114 H 115 H 125 H Pulse Rate [Radial] Pulse Rate from SpO2 Sensor 125 H Pulse Rhythm Pulse Rhythm [Radial] Pulse Strength Pulse Strength [Radial] Respiratory Rate 15 23 22 Respiratory Effort / Characteristics Respiratory Depth Respiratory Pattern Blood Pressure 113/89 131/85 102/71 Blood Pressure [Right Arm] Blood Pressure Mean 97 100 81 Blood Pressure Mean [Right Arm] Blood Pressure Position Blood Pressure Position [Right Arm] Pulse Oximetry 93 Oxygen Delivery Method Sepsis Recent Fever Within 48 Hours Sepsis New/Unexplained Change in Mental Status Sepsis Action Taken by Nursing General: Well developed well nourished middle-aged female who appears she answers most questions appropriately although was initially post ictal and confused. She is alert to person place but not year in no acute distress, breathing comfortably on room air. Normal speech HEENT: Normal cephalic atraumatic. Pupils are equal round and reactive to light. Extraocular movements are intact. He does have baseline blindness oropharynx is pink with moist mucous membranes. No swelling of the mouth lips or tongue. Neck: Supple with a midline trachea. No meningeal signs or stiffness, no JVD or bruits. No Stridor. Chest: Clear to auscultation bilaterally. No wheezes or rhonchi. No increased work of breathing. Heart: Regular rate and rhythm without murmurs or gallops. Abdomen: Soft nontender, nondistended without rebound guarding or rigidity. Several surgical scars in the abdomen Extremities: No cyanosis clubbing or edema. No calf tenderness or assymetry Spine/Back. Non tender to palpation. No CVA tenderness Skin: Good turgor without rashes. Neurologic exam: Cranial nerves two through 12 are intact. Motor and sensation are intact and symmetrical throughout. Course Administered Medications Magnesium Sulfate 2 gm/ Sodium (Chloride) 254 mls @ 63 mls/hr IV TODAY@1930 [facility] Stop: 01/08/21 23:32 Last Admin: 01/08/21 19:53 Dose: 63 mls/hr Documented by: [id number] Discontinued Medications Multivitamins 10 ml/ Thiamine HCl 100 mg/ Folic Acid 1 mg/Sodium Chloride 1,011.2 mls @ 1,011.2 mls/hr IV .Q1H ONE Stop: 01/08/21 17:03 Last Infusion: 01/08/21 19:56 Dose: 0 mls/hr Documented by: [id number] Admin: 01/08/21 17:37 Dose: 1,011.2 mls/hr Documented by: [id number] Levetiracetam 1,000 mg/ Sodium (Chloride) 110 mls @ 440 mls/hr IV NOW STA Stop: 01/08/21 16:18 Last Infusion: 01/08/21 18:16 Dose: 0 mls/hr Documented by: [id number] Admin: 01/08/21 17:44 Dose: 440 mls/hr Documented by: [id number] Lorazepam (Ativan) 1 mg in 2 mls @ 2 mls/min IV NOW STA Stop: 01/08/21 17:57 Last Admin: 01/08/21 18:16 Dose: 2 mls/min Documented by: [id number] Levetiracetam 500 mg/ Sodium (Chloride) 105 mls @ 440 mls/hr IV NOW STA Stop: 01/08/21 19:09 Last Admin: 01/08/21 21:10 Dose: 440 mls/hr Documented by: [id number] Potassium Chloride (K Johnny / Wtr) 10 meq in 100 mls @ 100 mls/hr IV Q1H STA Stop: 01/08/21 19:54 Last Admin: 01/08/21 21:10 Dose: 100 mls/hr Documented by: [id number] Metoclopramide HCl (Metoclopramide Hcl Inj 5 Mg/Ml 2 Ml Vial) 10 mg IV NOW STA Stop: 01/08/21 16:11 Last Admin: 01/08/21 17:36 Dose: 10 mg Documented by: [id number] Medical Decision Making Differential Diagnosis Seizure, intracranial hemorrhage, trauma, intra-abdominal process, dehydration, Covid, electrolyte or metabolic abnormality, sepsis Medical Records Attestation: I reviewed the patient's medical records. Home Medications Current Medication List: was personally reviewed by me Laboratory Data Attestation: I reviewed the patient's lab results. Result diagrams: 01/08/21 16:00 01/08/21 16:00 Lab Results 01/08/21 01/08/21 01/08/21 Range/Units 16:00 16:00 16:00 WBC 4.45 L (4.8-10.8) K/uL RBC 4.65 (4.2-5.4) M/uL Hgb 12.5 (12.0-16.0) g/dL Hct 39.2 (37-47) % MCV 84.3 (80-100) fL MCH 26.9 (25-34) pg MCHC 31.9 L (32-36) g/dL RDW Std Deviation 71.2 H (36.4-46.3) fL RDW Coeff of Lisa 22.8 H (11.5-14.5) % Plt Count 215 (130-400) K/uL MPV 10.1 (7.4-10.4) fL Immature Gran % (Auto) 0.9 % Neut % (Auto) 87.5 % Lymph % (Auto) 10.1 % Hinds % (Auto) 1.3 % Eos % (Auto) 0.0 % Baso % (Auto) 0.2 % Neut # (Auto) 3.89 (1.4-6.5) K/uL Lymph # (Auto) 0.45 L (1.2-3.4) K/uL Hinds # (Auto) 0.06 L (0.11-0.59) K/uL Eos # (Auto) 0.00 (0-0.5) K/uL Baso # (Auto) 0.01 (0-0.2) K/uL Immature Gran # (Auto) 0.04 H (0.00-0.02) K/uL Hypochromasia Present Anisocytosis Present Stomatocytes 1+ PT (9.0-12.0) Seconds INR (0.9-1.1) APTT (21.0-31.0) Seconds PTT Ratio Sodium 133 L (136-145) mmol/L Potassium 3.2 L (3.5-5.1) mmol/L Chloride 96 L (98-107) mmol/L Carbon Dioxide 28 (21-32) mmol/L Anion Gap 9.0 (3-11) BUN 6 L (7-18) mg/dl Creatinine 0.85 (0.6-1.2) mg/dl Est Cr Clr Drug Dosing 71.7 ml/min Est GFR ( Amer) 92.0 ml/min Est GFR (Non-Af Amer) 79.3 ml/min BUN/Creatinine Ratio 7.3 L (10-20) Glucose 175 H (70-99) mg/dl Lactate (0.4-2.0) mmol/L Calcium 8.7 (8.5-10.1) mg/dl Phosphorus 3.5 (2.5-4.9) mg/dl Magnesium 1.7 L (1.8-2.4) mg/dl Total Bilirubin 0.9 (0.2-1) mg/dl AST 289 H (15-37) U/L ALT 98 H (12-78) U/L Alkaline Phosphatase 261 H (45-117) U/L Troponin I < 0.015 (0-0.045) ng/ml Total Protein 7.9 (6.4-8.2) gm/dl Albumin 3.3 L (3.4-5.0) gm/dl Globulin 4.6 H (2.5-4.0) gm/dl Albumin/Globulin Ratio 0.7 L (0.9-2) Lipase 464 H (73-393) U/L Procalcitonin (0-0.5) ng/ml Ethyl Alcohol mg/dL (0-3) mg/dl 01/08/21 01/08/21 01/08/21 Range/Units 16:00 16:00 17:09 WBC (4.8-10.8) K/uL RBC (4.2-5.4) M/uL Hgb (12.0-16.0) g/dL Hct (37-47) % MCV (80-100) fL MCH (25-34) pg MCHC (32-36) g/dL RDW Std Deviation (36.4-46.3) fL RDW Coeff of Lisa (11.5-14.5) % Plt Count (130-400) K/uL MPV (7.4-10.4) fL Immature Gran % (Auto) % Neut % (Auto) % Lymph % (Auto) % Hinds % (Auto) % Eos % (Auto) % Baso % (Auto) % Neut # (Auto) (1.4-6.5) K/uL Lymph # (Auto) (1.2-3.4) K/uL Hinds # (Auto) (0.11-0.59) K/uL Eos # (Auto) (0-0.5) K/uL Baso # (Auto) (0-0.2) K/uL Immature Gran # (Auto) (0.00-0.02) K/uL Hypochromasia Anisocytosis Stomatocytes PT 11.0 (9.0-12.0) Seconds INR 1.1 (0.9-1.1) APTT 25.1 (21.0-31.0) Seconds PTT Ratio 1.0 Sodium (136-145) mmol/L Potassium (3.5-5.1) mmol/L Chloride (98-107) mmol/L Carbon Dioxide (21-32) mmol/L Anion Gap (3-11) BUN (7-18) mg/dl Creatinine (0.6-1.2) mg/dl Est Cr Clr Drug Dosing ml/min Est GFR ( Amer) ml/min Est GFR (Non-Af Amer) ml/min BUN/Creatinine Ratio (10-20) Glucose (70-99) mg/dl Lactate (0.4-2.0) mmol/L Calcium (8.5-10.1) mg/dl Phosphorus (2.5-4.9) mg/dl Magnesium (1.8-2.4) mg/dl Total Bilirubin (0.2-1) mg/dl AST (15-37) U/L ALT (12-78) U/L Alkaline Phosphatase (45-117) U/L Troponin I (0-0.045) ng/ml Total Protein (6.4-8.2) gm/dl Albumin (3.4-5.0) gm/dl Globulin (2.5-4.0) gm/dl Albumin/Globulin Ratio (0.9-2) Lipase (73-393) U/L Procalcitonin 0.10 (0-0.5) ng/ml Ethyl Alcohol mg/dL < 3.0 (0-3) mg/dl 01/08/21 Range/Units 17:23 WBC (4.8-10.8) K/uL RBC (4.2-5.4) M/uL Hgb (12.0-16.0) g/dL Hct (37-47) % MCV (80-100) fL MCH (25-34) pg MCHC (32-36) g/dL RDW Std Deviation (36.4-46.3) fL RDW Coeff of Lisa (11.5-14.5) % Plt Count (130-400) K/uL MPV (7.4-10.4) fL Immature Gran % (Auto) % Neut % (Auto) % Lymph % (Auto) % Hinds % (Auto) % Eos % (Auto) % Baso % (Auto) % Neut # (Auto) (1.4-6.5) K/uL Lymph # (Auto) (1.2-3.4) K/uL Hinds # (Auto) (0.11-0.59) K/uL Eos # (Auto) (0-0.5) K/uL Baso # (Auto) (0-0.2) K/uL Immature Gran # (Auto) (0.00-0.02) K/uL Hypochromasia Anisocytosis Stomatocytes PT (9.0-12.0) Seconds INR (0.9-1.1) APTT (21.0-31.0) Seconds PTT Ratio Sodium (136-145) mmol/L Potassium (3.5-5.1) mmol/L Chloride (98-107) mmol/L Carbon Dioxide (21-32) mmol/L Anion Gap (3-11) BUN (7-18) mg/dl Creatinine (0.6-1.2) mg/dl Est Cr Clr Drug Dosing ml/min Est GFR ( Amer) ml/min Est GFR (Non-Af Amer) ml/min BUN/Creatinine Ratio (10-20) Glucose (70-99) mg/dl Lactate 1.3 (0.4-2.0) mmol/L Calcium (8.5-10.1) mg/dl Phosphorus (2.5-4.9) mg/dl Magnesium (1.8-2.4) mg/dl Total Bilirubin (0.2-1) mg/dl AST (15-37) U/L ALT (12-78) U/L Alkaline Phosphatase (45-117) U/L Troponin I (0-0.045) ng/ml Total Protein (6.4-8.2) gm/dl Albumin (3.4-5.0) gm/dl Globulin (2.5-4.0) gm/dl Albumin/Globulin Ratio (0.9-2) Lipase (73-393) U/L Procalcitonin (0-0.5) ng/ml Ethyl Alcohol mg/dL (0-3) mg/dl Imaging Data Attestation: I personally reviewed and interpreted this imaging study as follows: My Impression: Chest x-rayno acute infiltrate, failure, pneumothorax seen Radiologist's Impression: Head CT 01/08/21 15:47 CT SCAN OF THE BRAIN WITHOUT IV CONTRAST CLINICAL HISTORY: Fall. Seizure. COMPARISON STUDY: CT of the brain dated 09/01/2020. TECHNIQUE: Unenhanced axial CT scan of the brain is performed from the vertex to the skull base. A dose lowering technique was utilized adhering to the principles of ALARA. CT DOSE: 537.48 mGy.cm FINDINGS: Brain parenchyma: There is mild age advanced involutional change. There is no hemorrhage, mass effect, or evidence of acute territorial ischemia by CT criteria. Cabrera-white matter differentiation is preserved. No extra-axial fluid collection is seen. Ventricles, sulci, cisterns: Prominent secondary to involutional change. Intracranial vasculature: There is mild atherosclerotic calcification of the cavernous carotid arteries. Calvarium: There is no depressed calvarial fracture. Sinuses and mastoids: The visualized paranasal sinuses are clear. The mastoid air cells are well pneumatized. Orbits: The bony orbits are grossly intact. IMPRESSION: There is no hemorrhage, mass effect, or evidence of acute territorial ischemia by CT criteria. ACT 112: Negative or not required by law. Electronically signed by: Geovanny Marcelo M.D. 01/08/2021 4:57 PM Abdomen/Pelvis CT 01/08/21 15:52 CT SCAN OF THE ABDOMEN AND PELVIS WITHOUT IV CONTRAST CLINICAL HISTORY: Nausea and vomiting. COMPARISON STUDY: Abdominal CT dated 07/07/2020. Pelvic CT dated 09/01/2020. TECHNIQUE: CT scan of the abdomen and pelvis is performed from the lung bases to the proximal femora. Images are reviewed in the axial, sagittal, and coronal planes. IV contrast was not administered for this examination. Note that the examination was performed in suboptimal fashion without oral and IV contrast. A dose lowering technique was utilized adhering to the principles of ALARA. CT DOSE: 252.14 mGy.cm FINDINGS: Lung bases: The heart is normal in size and without pericardial effusion. The lung bases are clear noting bibasilar scarring/atelectasis. Liver: The unenhanced liver is enlarged, measuring 20.4 cm in length. The liver demonstrates diffusely diminished attenuation consistent with severe hepatic steatosis. There is no intrahepatic biliary ductal dilatation. Gallbladder: Surgically absent. Spleen: Normal in size and attenuation. Pancreas: The unenhanced pancreas is moderately atrophic and grossly unremarkable. Adrenal glands: Unremarkable. Kidneys: The unenhanced kidneys demonstrate mild cortical atrophy and are without hydronephrosis. There are no renal calculi identified. There is no evidence of contour deforming renal mass lesion. Abdominal vasculature: The abdominal aorta is normal in course and caliber. Bowel: There is a small hiatal hernia. There is postoperative change from gastrectomy and esophagojejunostomy. No bowel obstruction is identified. The appendix is well-visualized and normal. Peritoneum: There is no intraperitoneal free air or abdominal ascites. Lymphadenopathy: None. Pelvic viscera: Evaluation of the pelvis is degraded by streak artifact from a right hip arthroplasty. The bladder is normal as visualized. The uterus is surgically absent. No adnexal lesion is seen. Skeletal structures: The skeletal structures are osteopenic. No lytic or blastic lesions are seen. A right hip arthroplasty is in place. There are chronic left and subacute/healing right pubic ring fractures. There are numerous healed bilateral rib fractures. There are chronic compression deformities of T9, T11, T12, and L4. A mild compression deformity of L5 is age indeterminant and new from 09/01/2020. IMPRESSION: 1. Suboptimal examination without oral and IV contrast. 2. No acute infectious or inflammatory findings are identified in the abdomen or pelvis. 3. There is postoperative change from gastrectomy with esophagojejunostomy. No bowel obstruction is seen. 4. Hepatomegaly and severe back steatosis. 5. A mild compression deformity of L5 is age indeterminant but new from 09/01/2020. This may be acute to subacute. Correlate for point tenderness. 6. Additional findings as above. ACT 112: Negative or not required by law. Electronically signed by: Geovanny Marcelo M.D. 01/08/2021 6:15 PM ECG Data Attestation: I personally reviewed and interpreted this ECG as follows: Indication: + altered mental status Rate (beats per minute): 99 Rhythm: + normal sinus ECG Intervals/blocks: + Normal QRS, + Normal QT and + Normal ME ECG [place]: + Normal ECG ST segments: + Normal ST segments ECG Findings: no PACs or no PVCs Comparison ECG Date: from (09/01/20) Change: no significant change MDM Narrative This patient comes in as described above. 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 I saw the patient in conjunction with my resident. The patient was po stictal after having a seizure. She is now waking up. She has no focal neurologic deficits. IV asked established EKG was obtained and multiple blood testing was obtained. She was reassessed frequently. I did order CAT scan of her head but also of her abdomen as she says she been vomiting for several days. I suspect she is not been holding down her seizure medications. We did load her with IV Keppra. She also drinks alcohol substantially and has not had any alcohol recently and may be withdrawing. While she was here she started getting shaky and tachycardic and was given IV Ativan. We also give her a IV banana bag. She woke up significantly but then started having a fever. We did add blood cultures and lactic acid as well. She does not have any definite source she is been vomiting. CAT scan abdomen is unremarkable. CAT scan the head is unremarkable. She is nursing of electrolyte or metabolic abnormalities. I do not think she has meningitis encephalitis likely however with her ongoing medical problems include von Willebrand's disease I do not think she needs a spinal tap at this point as she will be admitted regardless and can be further observed. Although she did have a fever she did not have elevated white counts, her lactic acid and procalcitonin are also normal which would go against sepsis/significant infection. I did consult Dr. Gutierrez to see the patient in the ER for further treatment and evaluation. She did not have any further seizure activity in the emergency department Continuous cardiac during and orders placed in ER monitor for continued cardiac monitoring. Upon my evaluation the patient was noted to be in normal sinus rhythm with a rate of 99 Impression & Plan Seizure, Alcohol use disorder, Alcohol withdrawal, Fever, Vomiting, Lab test negative for COVID-19 virus Discharge Plan Visit Data Chief Complaint: Seizure ED Provider: Matt Campoverde ED Midlevel Provider: Naveed Olivas Discharge Problem: Seizure, Alcohol use disorder, Alcohol withdrawal, Fever, Vomiting, Lab test negative for COVID-19 virus Patient Disposition: Admitted As Inpatient Discharge Instructions Interventions: ED Discharge Assessment Last Done: 01/08/21 21:17 Discharge Problem: Alcohol withdrawal Qualifiers: Complication of substance-induced condition: with unspecified complication Qualified Code(s): F10.239 - Alcohol dependence with withdrawal, unspecified Fever Qualifiers: Fever type: unspecified Qualified Code(s): R50.9 - Fever, unspecified Vomiting Qualifiers: Vomiting type: unspecified Vomiting Intractability: unspecified Nausea presence: with nausea Qualified Code(s): R11.2 - Nausea with vomiting, unspecified
[2021-01-08] MEDS ORDERED: levETIRAcetam 1,000 MG in 0.9 % SODIUM CHLORIDE 100 ML IV STA (16:04)
[2021-01-08] MEDS ORDERED: MULTI-VITAMIN INFUSION 10 ML, THIAMINE HCL 100 MG, FOLIC ACID 1 MG in SODIUM CHLORIDE 0... IV ONE (16:04)
[2021-01-08] MEDS ORDERED: METOCLOPRAMIDE HCL INJ 5 MG/ML 2 ML VIAL IV STA (16:10)
[2021-01-08 16:12] LABS: Basophils # (auto) 0.01 K/uL (0-0.2); Basophils % (auto) 0.2 %; Hematocrit (blood only) 39.2 % (37-47); Hemoglobin 12.5 g/dL (12.0-16.0); Immature Granulocytes # (auto) 0.04 K/uL (0.00-0.02); Immature Granulocytes % (auto) 0.9 %; Lymphocytes # (auto) 0.45 K/uL (1.2-3.4); Lymphocytes % (auto) 10.1 %; Mean Corpuscular Hemoglobin 26.9 pg (25-34); Mean Corpuscular Hgb Conc 31.9 g/dL (32-36); Mean Corpuscular Volume 84.3 fL (80-100); Mean Platelet Volume 10.1 fL (7.4-10.4); Monocytes # (auto) 0.06 K/uL (0.11-0.59); Monocytes % (auto) 1.3 %; Neutrophils # (auto) 3.89 K/uL (1.4-6.5); Neutrophils % (auto) 87.5 %; Platelet Count 215 K/uL (130-400); RDW Coefficient of Variation 22.8 % (11.5-14.5); RDW Standard Deviation 71.2 fL (36.4-46.3); Red Blood Count 4.65 M/uL (4.2-5.4); White Blood Count 4.45 K/uL (4.8-10.8)
[2021-01-08] MEDS ORDERED: SODIUM CHLORIDE 0.9% 1000ML 1,000 ML IV SCH (16:15)
[2021-01-08 16:31] LABS: Albumin Level 3.3 gm/dl (3.4-5.0); BUN Creatinine Ratio 7.3 (10-20); Calcium 8.7 mg/dl (8.5-10.1); Creatinine Clr Calc Pharmacy 71.7 ml/min; Est GFR (Non-African American) 79.3 ml/min; Magnesium 1.7 mg/dl (1.8-2.4); Potassium 3.2 mmol/L (3.5-5.1)
[2021-01-08 16:34] LABS: Albumin Globulin Ratio 0.7 (0.9-2); Bilirubin,Total 0.9 mg/dl (0.2-1); Globulin 4.6 gm/dl (2.5-4.0); Phosphorus 3.5 mg/dl (2.5-4.9); Total Protein 7.9 gm/dl (6.4-8.2)
[2021-01-08 16:37] LABS: Anisocytosis Present; Hypochromasia Present; Stomatocytes 1+
--- NOTE | 2021-01-08 16:58 | CT Scan Report ---
CT SCAN OF THE BRAIN WITHOUT IV CONTRAST CLINICAL HISTORY: Fall. Seizure. COMPARISON STUDY: CT of the brain dated 09/01/2020. TECHNIQUE: Unenhanced axial CT scan of the brain is performed from the vertex to the skull base. A d ose lowering technique was utilized adhering to the principles of ALARA. CT DOSE: 537.48 mGy.cm FINDINGS: Brain parenchyma: There is mild age advanced involutional change. There is no hemorrhage, mass effect , or evidence of acute territorial ischemia by CT criteria. Cabrera-white matter differentiation is pres erved. No extra-axial fluid collection is seen. Ventricles, sulci, cisterns: Prominent secondary to involutional change. Intracranial vasculature: There is mild atherosclerotic calcification of the cavernous carotid arteri es. Calvarium: There is no depressed calvarial fracture. Sinuses and mastoids: The visualized paranasal sinuses are clear. The mastoid air cells are well pneu matized. Orbits: The bony orbits are grossly intact. IMPRESSION: There is no hemorrhage, mass effect, or evidence of acute territorial ischemia by CT rosanne bailey. ACT 112: Negative or not required by law. Electronically signed by: Geovanny Marcelo M.D. 01/08/2021 4:57 PM
[2021-01-08 17:27] LABS: INR 1.1 (0.9-1.1); Partial Thromboplastin Time 25.1 Seconds (21.0-31.0)
[2021-01-08] MEDS ORDERED: LORazepam 1 MG/2 ML VIAL IV STA (17:56)
--- NOTE | 2021-01-08 18:17 | CT Scan Report ---
CT SCAN OF THE ABDOMEN AND PELVIS WITHOUT IV CONTRAST CLINICAL HISTORY: Nausea and vomiting. COMPARISON STUDY: Abdominal CT dated 07/07/2020. Pelvic CT dated 09/01/2020. TECHNIQUE: CT scan of the abdomen and pelvis is performed from the lung bases to the proximal femora. Images are reviewed in the axial, sagittal, and coronal planes. IV contrast was not administered for this examination. Note that the examination was performed in suboptimal fashion without oral and IV contrast. A dose lowering technique was utilized adhering to the principles of ALARA. CT DOSE: 252.14 mGy.cm FINDINGS: Lung bases: The heart is normal in size and without pericardial effusion. The lung bases are clear no ting bibasilar scarring/atelectasis. Liver: The unenhanced liver is enlarged, measuring 20.4 cm in length. The liver demonstrates diffusel y diminished attenuation consistent with severe hepatic steatosis. There is no intrahepatic biliary d uctal dilatation. Gallbladder: Surgically absent. Spleen: Normal in size and attenuation. Pancreas: The unenhanced pancreas is moderately atrophic and grossly unremarkable. Adrenal glands: Unremarkable. Kidneys: The unenhanced kidneys demonstrate mild cortical atrophy and are without hydronephrosis. The re are no renal calculi identified. There is no evidence of contour deforming renal mass lesion. Abdominal vasculature: The abdominal aorta is normal in course and caliber. Bowel: There is a small hiatal hernia. There is postoperative change from gastrectomy and esophagojej unostomy. No bowel obstruction is identified. The appendix is well-visualized and normal. Peritoneum: There is no intraperitoneal free air or abdominal ascites. Lymphadenopathy: None. Pelvic viscera: Evaluation of the pelvis is degraded by streak artifact from a right hip arthroplasty . The bladder is normal as visualized. The uterus is surgically absent. No adnexal lesion is seen. Skeletal structures: The skeletal structures are osteopenic. No lytic or blastic lesions are seen. A right hip arthroplasty is in place. There are chronic left and subacute/healing right pubic ring frac tures. There are numerous healed bilateral rib fractures. There are chronic compression deformities o f T9, T11, T12, and L4. A mild compression deformity of L5 is age indeterminant and new from 1. IMPRESSION: 1. Suboptimal examination without oral and IV contrast. 2. No acute infectious or inflammatory findings are identified in the abdomen or pelvis. 3. There is postoperative change from gastrectomy with esophagojejunostomy. No bowel obstruction is s een. 4. Hepatomegaly and severe back steatosis. 5. A mild compression deformity of L5 is age indeterminant but new from 09/01/2020. This may be acute to subacute. Correlate for point tenderness. 6. Additional findings as above. ACT 112: Negative or not required by law. Electronically signed by: Geovanny Marcelo M.D. 01/08/2021 6:15 PM
[2021-01-08] MEDS ORDERED: POTASSIUM CHLORIDE / WTR 10 MEQ/100 ML PLCT IV STA (18:55)
[2021-01-08] MEDS ORDERED: levETIRAcetam 500 MG in 0.9 % SODIUM CHLORIDE 100 ML IV STA (18:55)
[2021-01-08] MEDS ORDERED: CONSULT PHARMACY STA (18:55)
[2021-01-08] MEDS ORDERED: GABAPENTIN 1200MG ALCOHOL WITHDRAWAL LOAD PO STA (18:55)
--- NOTE | 2021-01-08 19:13 | History & Physical Report ---
Date of Service January 08, 2021 Assessment & Plan (1) Breakthrough seizure: Plan: 50-year-old female with history of seizure disorder, alcoholism, depression anxiety, von Willebrand disease, history of subdural hematoma and rectus sheath hematoma Presenting with seizures episodes at home. BREAKTHROUGH SEIZURES LIKELY SECONDARY TO ALCOHOL WITHDRAWAL ALSO FROM MEDICATION NONADHERENCE HISTORY OF SEIZURE DISORDER CT head: Negative Given Keppra 1000 mg at the ER Additional 500 mg IV ordered Usually on Keppra 1500 mg twice daily We will consult neurology ALCOHOL WITHDRAWAL Patient admits last drink 2 days ago, uses 1 bottle of wine twice a week Alcohol level normal LFTs elevated, total bilirubin normal, INR normal Doubt alcoholic pancreatitis at this point but will monitor closely Alcohol withdrawal protocol with gabapentin taper Ativan as needed for anxiety ABDOMINAL PAIN, VOMITING, DIARRHEA POSSIBLE UNDERLYING ACUTE PANCREATITIS POSSIBLY SECONDARY TO ALCOHOL WITHDRAWAL Lipase level mildly elevated at 464 LR 20 cc/h ordered N.p.o. for now Stool cultures and C. difficile pending GI consulted HYPOKALEMIA, HYPOMAGNESEMIA Likely secondary to vomiting We will replace FEVER, POSSIBLY FROM ALCOHOL WITHDRAWAL POSSIBLE SEPSIS, UNKNOWN SOURCE AT THIS TIME Lactic acid normal Blood culture: Pending Stool culture and C. difficile: Pending Nasal MRSA ordered Chest x-ray pending We will order empiric vancomycin and cefepime History of depression anxiety Hold psych meds for now until mental status further improves Von Willebrand disease Monitor for bleeding History of subdural hematoma and rectus sheath hematoma DVT prophylaxis-SCDs for now Disposition Pending History of Present Illness Chief Complaint: Seizures Primary Care Provider: Jaspal Bae MD 50-year-old female with history of seizure disorder, alcoholism, depression anxiety, von Willebrand disease, history of subdural hematoma and rectus sheath hematoma Presenting with seizures episodes at home. History obtained from ER records, previous admission records, [facility] outpatient records and patient interview. Patient was brought in here by EMS after a call from patient's boyfriend as patient was having multiple seizures at home. Patient arrived at the ER postictal. She was given IV Keppra 1000 mg loading dose, and Ativan IV. Afterwards, patient was more awake and alert, answering questions. On exam, patient was seen resting in bed, sleeping but easily awakened. Reports central abdominal pain which has been going on for the past few days. This is associated with nausea, vomiting-nonbloody, and diarrhea-nonbloody as well. Reports mild headache at the parietal region but denies dizziness, neck pain. No cough, chest pain, shortness of breath. Denies fevers or chills at home. No other symptoms. Occasionally patient will be confused with answers, but for the most part is oriented x3 and answering all questions appropriately. Allergies Allergy/AdvReac Type Severity Reaction Status Date / Time iron dextran complex Allergy Severe SOB, heart Verified 01/08/21 20:18 racing (see comments) cat dander Allergy Intermediate eye Verified 01/08/21 20:18 watering ceftriaxone Allergy Intermediate Hives Verified 01/08/21 20:18 ciprofloxacin Allergy Intermediate lips Verified 01/08/21 20:18 burning/peeling doxycycline Allergy Intermediate hives, Verified 01/08/21 20:18 vomiting latex Allergy Intermediate mouth Verified 01/08/21 20:18 hives/burning sensation Penicillins Allergy Intermediate Hives Verified 01/08/21 20:18 Quinolones Allergy Intermediate Hives Verified 01/08/21 20:18 Sulfa (Sulfonamide Allergy Intermediate hives Verified 01/08/21 20:18 Antibiotics) Aminoglycosides Allergy Unknown unknown Verified 01/08/21 20:18 reaction tobramycin AdvReac Severe blindness Verified 09/01/20 15:15 citalopram AdvReac Mild restlessnes Verified 09/01/20 15:15 s Ferric Oxide Allergy Intermediate hives (see Uncoded 09/01/20 15:15 comments) Home Medications Medication Instructions Recorded Confirmed Type pantoprazole 40 mg tablet,delayed 40 mg PO BID 01/29/18 01/08/21 History release (Protonix) levetiracetam 500 mg tablet 1,500 mg PO BID 07/07/18 01/08/21 History (Keppra) gabapentin 400 mg capsule 400 mg PO TID 11/18/18 01/08/21 History fexofenadine 180 mg tablet 180 mg PO DAILY 09/22/19 01/08/21 History (Maame Allergy) lorazepam 1 mg tablet 0.5 - 1 mg PO Q8H PRN 04/12/20 01/08/21 History sertraline 50 mg tablet 50 mg PO DAILY 07/07/20 01/08/21 History trazodone 50 mg tablet 50 mg PO HS 07/07/20 01/08/21 History cyclobenzaprine 10 mg tablet 10 mg PO TID PRN 09/01/20 01/08/21 History lidocaine 4 % topical patch 1 patch TOPICAL DAILY PRN 09/01/20 01/08/21 History promethazine 25 mg tablet 25 mg PO Q8H PRN 09/01/20 01/08/21 History oxycodone 5 mg tablet 2.5 mg PO Q8H PRN #10 tab 09/08/20 01/08/21 Rx albuterol sulfate 90 mcg/actuation 2 puff INHALATION QID PRN 01/08/21 01/08/21 History aerosol inhaler Past Med/Surg History Medical History (Updated 01/09/21 @ 13:54 by BRAVO Lopez) Anemia hx of blood transfusion (post-operatively 10/2018) Anxiety 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 Lanza Surgical History H/O foot surgery RT HEEL SURGERY X 2 (HARDWARE INTACT) TOE CORRECTION X 3 (PINS INTACT ON RT FOOT) H/O shoulder surgery RT HUMERUS FX REPAIRED (HARDWARE INTACT) H/O wisdom tooth extraction H/O wrist surgery LEFT WRIST X 2 SURGERIES History of cholecystectomy History of colonoscopy History of esophagogastroduodenoscopy (EGD) History of gastrectomy secondary to PUD (OVER 10 YEARS AGO) History of hand surgery LEFT HAND FINGER REPAIR History of hysterectomy History of vascular access device MEDIPORT INTACT Family History Father Diabetes Mother Von Willebrand disease Grandmother (Paternal) Family hx of colon cancer Social History Smoking Status: Never smoker Second Hand Exposure: No; Hx Alcohol Use: Yes Alcohol type: wine Hx Substance Use: No Preferred Language: Wolof Communication Ability: Effective X Ray Nurse Required: No Beliefs That Will Affect Care: None marital status: Legally Current Living Situation: Alone Current Living Situation Comment: neighbors help occasionally with needs current occupational status: disabled How many Children do You have: 2 Feels Safe at Home: Yes Safety Concerns: Feels Safe At This Time Assistive Devices: Cane, Walker and Wheelchair Review of Systems Review of Systems: all noted and negative except for above Physical Exam Physical Exam: General- oriented x 2, not in distress, speaks in sentences with no effort or accessory muscle use Appears somewhat weak, eyes mostly closed During exam Head- atraumatic Eyes- PERRL, EOMI, anicteric ENT- oropharynx clear Neck- supple, no JVD, no adenopathy, no thyromegaly; carotids +2/2, no bruits appreciated Lungs- clear to auscultation bilaterally, no rales/wheezes Heart- normal rate, regular rhythm; no murmur, no gallop, no rub appreciated Abdomen- normal bowel sounds, nondistended, soft, positive moderate tenderness in all quadrants, no masses or hepatosplenomegaly Extremities- no pretibial edema, no calf tenderness; peripheral pulses intact Positive mild tremors of bilateral hands Neuro- alert, oriented x 3; CN 2-12 grossly intact; motor 5/5 bilatera lly;sensation 100% on all extremities; no other gross focal neurologic deficits Skin- warm & dry Results & Data Results & Data ([facility]) Vital Signs (Past 12 Hours) Vital Signs Temp Pulse Pulse Resp BP BP Pulse Ox 01/08/21 16:54 38.4 C H 137 H 16 133/87 94 01/08/21 15:35 36.7 C 78 16 137/94 96 01/08/21 15:34 95 01/08/21 15:25 36.8 C 85 17 137/94 97 all noted and reviewed including below Code Status & VTE Plan VTE Prophylaxis Plan VTE Prophylaxis will be ordered: Yes
[2021-01-08] MEDS ORDERED: SODIUM CHLORIDE 0.9% IV SCH (19:30)
[2021-01-08] MEDS ORDERED: MAGNESIUM SULFATE IV SCH (19:30)
--- NOTE | 2021-01-08 20:10 | XRay Report ---
SINGLE VIEW CHEST CLINICAL HISTORY: Dyspnea. FINDINGS: An AP, portable, upright chest radiograph is compared to study dated 09/01/2020. The cardiom ediastinal silhouette is unremarkable. Chronic interstitial thickening is similar to previous. There is bibasilar scarring/atelectasis. No airspace consolidation or large pleural effusion is identified. No pneumothorax is seen. The skeletal structures are osteopenic. There are healed bilateral rib frac tures. Postoperative change is noted in the right humerus. IMPRESSION: No active disease in the chest. ACT 112: Negative or not required by law. Electronically signed by: Geovanny Marcelo M.D. 01/08/2021 8:09 PM
[2021-01-08 21:04] LABS: Appearance Urine Cloudy (Clear); Bacteria Urine Automated 2+ (Negative); Bilirubin Urine Negative (Negative); Blood Urine Negative (Negative); Cast Urine Automated 0 /lpf (0-5); Color Urine Dark Yellow; Glucose Urine UA Negative (Negative); Ketones Urine Negative (Negative); Leukocyte Esterase Urine Negative (Negative); Nitrite Urine Positive (Negative); Protein Urine Negative (Negative); RBC Urine Automated 0-4 /hpf (0-4); Specific Gravity Urine 1.012 (1.000-1.030); Urobilinogen Urine Negative (Negative)
[2021-01-08] MEDS ORDERED: ONDANSETRON INJ 2 MG/ML 2 ML VIAL IV PRN (21:09)
[2021-01-08] MEDS ORDERED: LORazepam 1 MG/2 ML VIAL IV PRN (21:09)
[2021-01-08] MEDS ORDERED: ATIVAN IV ALCOHOL WITHDRAWL IV PRN (21:09)
[2021-01-08] MEDS ORDERED: LORazepam 2 MG/4 ML VIAL IV PRN (21:09)
[2021-01-08] MEDS ORDERED: LORazepam 3 MG/6 ML VIAL IV PRN (21:09)
[2021-01-08] MEDS ORDERED: LORazepam 0.5 MG/1 ML VIAL IV PRN (21:09)
[2021-01-08] MEDS ORDERED: GABAPENTIN 600 MG TAB PO ONE (21:30)
[2021-01-08 21:32] LABS: Amphetamines+Metham, Urine Neg (Neg); Barbiturates, Urine Neg (Neg); Benzodiazepine, Urine Neg (Neg); Cocaine, Urine Neg (Neg); MDMA (Ecstacy), Urine Neg (Neg); Methadone, Urine Neg (Neg); Opiate, Urine Neg (Neg); Phencyclidine, Urine Neg (Neg)
[2021-01-08] MEDS: LACTATED RINGER'S 1,000 ML IV SCH (22:20)
[2021-01-08] MEDS: THIAMINE HCL 100 MG in SYRINGE 9 ML IV SCH (22:21)
[2021-01-08] MEDS: FOLIC ACID 1 MG in SYRINGE 9.8 ML IV SCH (22:21)
[2021-01-08] MEDS ORDERED: CEFEPIME CONSULT ACTIVE PRN (22:30)
[2021-01-08] MEDS ORDERED: VANCOMYCIN CONSULT ACTIVE PRN (22:30)
[2021-01-08] MEDS ORDERED: VANCOMYCIN HCL 1,250 MG in SODIUM CHLORIDE 0.9% 250 ML IV STA (22:35)
[2021-01-08] MEDS: CEFEPIME 2,000 MG in SYRINGE 0 ML IV SCH (23:50)
[2021-01-09] MEDS: LACTATED RINGER'S 1,000 ML IV SCH ×5 (02:59→23:38)
[2021-01-09] MEDS: CEFEPIME 2,000 MG in SYRINGE 0 ML IV SCH ×2 (06:07→17:46)
[2021-01-09] MEDS: GABAPENTIN 600 MG TAB PO SCH ×3 (06:08→21:11)
[2021-01-09 07:17] LABS: Albumin Level 2.4 gm/dl (3.4-5.0); Bilirubin Direct 0.4 mg/dl (0-0.2); Bilirubin,Total 0.9 mg/dl (0.2-1); Total Protein 5.9 gm/dl (6.4-8.2)
[2021-01-09] MEDS: FOLIC ACID 1 MG in SYRINGE 9.8 ML IV SCH (08:13)
[2021-01-09] MEDS: FEXOFENADINE HCL 180 MG TAB PO SCH (08:13)
[2021-01-09] MEDS: THIAMINE HCL 100 MG in SYRINGE 9 ML IV SCH (08:13)
[2021-01-09 08:21] LABS: Mean Corpuscular Hgb Conc 30.5 g/dL (32-36)
[2021-01-09 08:22] LABS: BUN Creatinine Ratio 12.5 (10-20); Calcium 8.2 mg/dl (8.5-10.1); Creatinine Clr Calc Pharmacy 111.5 ml/min; Est GFR (Non-African American) 111.3 ml/min
--- NOTE | 2021-01-09 08:30 | Electrocardiogram Report ---
Test Reason : Blood Pressure : / mmHG Vent. Rate : 099 BPM Atrial Rate : 099 BPM P-R Int : 128 ms QRS Dur : 062 ms QT Int : 372 ms P-R-T Axes : 047 049 052 degrees QTc Int : 477 ms Normal sinus rhythm Normal ECG When compared with ECG of 01-SEP-2020 15:54, No significant change was found Confirmed by Escobar Agudelo ([id number]) on 01/09/2021 8:29:42 AM Referred By: REFERRED SELF Confirmed By:Escobar Agudelo
[2021-01-09 08:38] LABS: Hematocrit (blood only) 32.8 % (37-47); Mean Corpuscular Hemoglobin 26.1 pg (25-34); Mean Corpuscular Volume 85.6 fL (80-100); RDW Coefficient of Variation 22.6 % (11.5-14.5); RDW Standard Deviation 71.1 fL (36.4-46.3); Red Blood Count 3.83 M/uL (4.2-5.4); White Blood Count 4.38 K/uL (4.8-10.8)
[2021-01-09 08:42] LABS: Anisocytosis Present; Basophils # (auto) 0.02 K/uL (0-0.2); Basophils % (auto) 0.5 %; Eosinophils # (auto) 0.03 K/uL (0-0.5); Eosinophils % (auto) 0.7 %; Immature Granulocytes # (auto) 0.01 K/uL (0.00-0.02); Immature Granulocytes % (auto) 0.2 %; Lymphocytes # (auto) 0.24 K/uL (1.2-3.4); Lymphocytes % (auto) 5.5 %; Mean Platelet Volume 10.7 fL (7.4-10.4); Monocytes # (auto) 0.15 K/uL (0.11-0.59); Monocytes % (auto) 3.4 %; Neutrophils # (auto) 3.93 K/uL (1.4-6.5); Neutrophils % (auto) 89.7 %; Platelet Count 122 K/uL (130-400); Platelet Estimate Decreased (Normal); Target Cells 1+
--- NOTE | 2021-01-09 10:07 | Gastrointestinal Consultation ---
Date of Consultation January 09, 2021 Assessment & Plan (1) Alcohol use disorder: Counseled regarding need to abstain. (2) Elevated lipase: Likely represents a mild alcohol induced pancreatitis, improving. Plan for outpatient EGD, EUS in 6 weeks. Our office will reach out to patient to arrange. If colonoscopy is also due we will arrange that. Supervising Physician Co-Signing Physician Notes I saw and evalauted the patinet with Ms. Erickson. We are consulted for evalaution of pancreatitis in the setting of heavy alcohol use. the patient was admitted with a seizure and found to have a modest elevation of her lipase and transaminases. She notes having lower abodominal pain that is improved from admission. PE: mildly dissheveled appearance No RUQ tenderness Impression: patient with elevation of liver transaminases and lipase likely related to underlying alcohol abuse. Would suggest continued IV hydration, replacement of thiamine / folate and electrolytes as needed. She should consider abstinance from all alohocl use. With regard to further diagnostics I would suggest an EUS in 4 to 6 weeks as an OP. Recomendations: advance diet as tolerated continue IV hydration watch for signs of alochol withdrawl replase thiamine / folate and electrolytes (previously done) please call with any further questions / gi to sign off. History of Present Illness Reason for Consultation: Pancreatitis Requesting Physician: Dr. Omalley Attending Physician: Maynor Santos MD History of Present Illness Ms. Hiwot Castle is a 50-year-old female with history of seizure disorder, increased alchol intake (most recent reported 3 days ago, ETOH level normal on arrival), depression anxiety, von Willebrand disease, history of subdural hematoma and rectus sheath hematoma. She presented to the ED yesterday evening because she experienced a seizure. GI is consulted to consider pancreatitis in light of elevated lipase as below. On arrival, lipase was elevated at 464 (today 338). Imaging of the pancreas was normal on noncontrast CTAP. When asked about abdominal pain today, she reported she had had bilateral lower abdomen cramping for approximately 1 week. She has also had some vague epigastric discomfort though not significant. She has had some intermittent nausea and vomiting, which began on Friday. Her most recent drink of alcohol was on Friday. When asked about the amount of alcohol intake, responses are vague but it seems that she drinks a bottle of wine per day a few days per week. She tells me that she has no appetite at all. She tells us that currently, her abdominal discomfort is minimal. Allergies Allergy/AdvReac Type Severity Reaction Status Date / Time iron dextran complex Allergy Severe SOB, heart Verified 01/08/21 20:18 racing (see comments) cat dander Allergy Intermediate eye Verified 01/08/21 20:18 watering ceftriaxone Allergy Intermediate Hives Verified 01/08/21 20:18 ciprofloxacin Allergy Intermediate lips Verified 01/08/21 20:18 burning/peeling doxycycline Allergy Intermediate hives, Verified 01/08/21 20:18 vomiting latex Allergy Intermediate mouth Verified 01/08/21 20:18 hives/burning sensation Penicillins Allergy Intermediate Hives Verified 01/08/21 20:18 Quinolones Allergy Intermediate Hives Verified 01/08/21 20:18 Sulfa (Sulfonamide Allergy Intermediate hives Verified 01/08/21 20:18 Antibiotics) Aminoglycosides Allergy Unknown unknown Verified 01/08/21 20:18 reaction tobramycin AdvReac Severe blindness Verified 09/01/20 15:15 citalopram AdvReac Mild restlessnes Verified 09/01/20 15:15 s Ferric Oxide Allergy Intermediate hives (see Uncoded 09/01/20 15:15 comments) Home Medications Medication Instructions Recorded Confirmed Type pantoprazole 40 mg tablet,delayed 40 mg PO BID 01/29/18 01/08/21 History release (Protonix) levetiracetam 500 mg tablet 1,500 mg PO BID 07/07/18 01/08/21 History (Keppra) gabapentin 400 mg capsule 400 mg PO TID 11/18/18 01/08/21 History fexofenadine 180 mg tablet 180 mg PO DAILY 09/22/19 01/08/21 History (Maame Allergy) lorazepam 1 mg tablet 0.5 - 1 mg PO Q8H PRN 04/12/20 01/08/21 History sertraline 50 mg tablet 50 mg PO DAILY 07/07/20 01/08/21 History trazodone 50 mg tablet 50 mg PO HS 07/07/20 01/08/21 History cyclobenzaprine 10 mg tablet 10 mg PO TID PRN 09/01/20 01/08/21 History lidocaine 4 % topical patch 1 patch TOPICAL DAILY PRN 09/01/20 01/08/21 History promethazine 25 mg tablet 25 mg PO Q8H PRN 09/01/20 01/08/21 History oxycodone 5 mg tablet 2.5 mg PO Q8H PRN #10 tab 09/08/20 01/08/21 Rx albuterol sulfate 90 mcg/actuation 2 puff INHALATION QID PRN 01/08/21 01/08/21 History aerosol inhaler Patient History Medical History (Updated 01/09/21 @ 13:54 by BRAVO Lopez) Anemia hx of blood transfusion (post-operatively 10/2018) Anxiety 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 Lanza Surgical History H/O foot surgery RT HEEL SURGERY X 2 (HARDWARE INTACT) TOE CORRECTION X 3 (PINS INTACT ON RT FOOT) H/O shoulder surgery RT HUMERUS FX REPAIRED (HARDWARE INTACT) H/O wisdom tooth extraction H/O wrist surgery LEFT WRIST X 2 SURGERIES History of cholecystectomy History of colonoscopy History of esophagogastroduodenoscopy (EGD) History of gastrectomy secondary to PUD (OVER 10 YEARS AGO) History of hand surgery LEFT HAND FINGER REPAIR History of hysterectomy History of vascular access device MEDIPORT INTACT Family History Father Diabetes Mother Von Willebrand disease Grandmother (Paternal) Family hx of colon cancer Social History Smoking Status: Never smoker Second Hand Exposure: No; Hx Alcohol Use: Yes Alcohol type: wine Hx Substance Use: No Preferred Language: [place] African Communication Ability: Effective Heavy Duty 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: No Beliefs That Will Affect Care: None marital status: Legally Current Living Situation: Alone Current Living Situation Comment: neighbors help occasionally with needs current occupational status: disabled How many Children do You have: 2 Feels Safe at Home: Yes Safety Concerns: Feels Safe At This Time Assistive Devices: None Review of Systems Review of Systems: ROS: Gen: + weakness, No fevers or weight loss Eyes: No eye redness, or pain, no recent vision changes Resp: No SOB, no cough Cardio: No palpitations/irregular beats, no chest pain GI: As per HPI, otherwise negative : Denies pain on urination Skin: No jaundice, itching or new rashes Physical Exam Constitutional: WD/WN, vitals as above Eyes: PERRL, conjunctivae normal, anicteric sclerae ENMT: external ear and nose normal, oropharynx normal Neck: trachea midline, no thyromegaly Respiratory: normal respiratory effort, lungs clear to auscultation Cardiovascular: RRR, no murmur, no edema Gastrointestinal (Abdomen): Mild diffuse abdominal tenderness throughout, without any focal tenderness. Normal bowel sounds nondistended. Soft. Musculoskeletal: no cyanosis or clubbing, extremities motor strength 5/5 Skin: no rashes, warm and dry Neurologic: PERRL, EOMI, accommodation nl, no face palsy, no dysarthria Psychiatric: A+Ox3, euthymic affect Lymphatic: no cervical or axillary lymphadenopathy Results & Data ([facility]) Vital Signs (Past 12 Hours) Vital Signs Temp Pulse Resp BP Pulse Ox 01/09/21 07:01 36.8 C 84 17 107/74 94 01/09/21 04:07 37.3 C 96 H 14 100/64 93 01/08/21 23:04 37.0 C 108 H 16 119/73 Laboratory Results WBC 4.3, Hb 10, HCT 32, PLT as 122, INR 1.1, NA 141, K3.0, CL 107, CO2 24, BUN 6, CR 0.51. See HPI for lipase and LFTs. Diagnostic Findings CTAP non contrast 01/08/21: 1. Suboptimal examination without oral and IV contrast. 2. No acute infectious or inflammatory findings are identified in the abdomen or pelvis. 3. There is postoperative change from gastrectomy with esophagojejunostomy. No bowel obstruction is seen. 4. Hepatomegaly and severe back steatosis. 5. A mild compression deformity of L5 is age indeterminant but new from 09/01/2020. This may be acute to subacute. Correlate for point tenderness.
--- NOTE | 2021-01-09 12:34 | Neurology Consultation ---
Date of Consultation January 09, 2021 Assessment & Plan (1) Seizure: 1. restart Keppra 1500 mg q 12 hours- reinforced compliance to seiuzre medications 2. keppra level 3. correct any abnormalities or infections 4. no driving for 6 months from last seizure date, no heights, no bathing or sw imming alone 5. MRI brain with and without if not done recently follow up with neurology Caitlin Christianson [facility] 4-6 weeks after discharge Supervising Physician Co-Signing Physician Notes Patient was seen examined. She had a breakthrough seizure in the setting of non compliance with her Keppra. She notes drinking a bottle of wine over the weekend. She is currently back to baseline. She is NOT driving. Recommend restarting Keppra 1500 mg BID. Follow up with Neurology as outpatient. History of Present Illness Reason for Consultation: breakthrough seizure Requesting Physician: Maynor Santos MD Attending Physician: Maynor Santos MD History of Present Illness Hiwot is a 50 year old female with history of seizure disorder, alcoholism, depression anxiety, von Willebrand disease, history of subdural hematoma and rectus sheath hematoma presented from home 01/09/2021 with seizures episodes at home. She was brought in here by EMS after a call from patient's boyfriend stating she was having multiple seizures at home and was postictal. She was given IV Keppra 1000 mg loading dose, and Ativan IV. She was last seen in our office by BRAVO Prater and had break through seizure at that time and was trying to arrange LTM. She stopped her Keppra and thinks she might restart it. She bit her lip and broke a tooth. denies CP ,SOB, abdominal pain, one sided weakness, numbness tingling, N, V, bowel or bladder issues. Allergies Allergy/AdvReac Type Severity Reaction Status Date / Time iron dextran complex Allergy Severe SOB, heart Verified 01/08/21 20:18 racing (see comments) cat dander Allergy Intermediate eye Verified 01/08/21 20:18 watering ceftriaxone Allergy Intermediate Hives Verified 01/08/21 20:18 ciprofloxacin Allergy Intermediate lips Verified 01/08/21 20:18 burning/peeling doxycycline Allergy Intermediate hives, Verified 01/08/21 20:18 vomiting latex Allergy Intermediate mouth Verified 01/08/21 20:18 hives/burning sensation Penicillins Allergy Intermediate Hives Verified 01/08/21 20:18 Quinolones Allergy Intermediate Hives Verified 01/08/21 20:18 Sulfa (Sulfonamide Allergy Intermediate hives Verified 01/08/21 20:18 Antibiotics) Aminoglycosides Allergy Unknown unknown Verified 01/08/21 20:18 reaction tobramycin AdvReac Severe blindness Verified 09/01/20 15:15 citalopram AdvReac Mild restlessnes Verified 09/01/20 15:15 s Ferric Oxide Allergy Intermediate hives (see Uncoded 09/01/20 15:15 comments) Home Medications Medication Instructions Recorded Confirmed Type pantoprazole 40 mg tablet,delayed 40 mg PO BID 01/29/18 01/08/21 History release (Protonix) levetiracetam 500 mg tablet 1,500 mg PO BID 07/07/18 01/08/21 History (Keppra) gabapentin 400 mg capsule 400 mg PO TID 11/18/18 01/08/21 History fexofenadine 180 mg tablet 180 mg PO DAILY 09/22/19 01/08/21 History (Maame Allergy) lorazepam 1 mg tablet 0.5 - 1 mg PO Q8H PRN 04/12/20 01/08/21 History sertraline 50 mg tablet 50 mg PO DAILY 07/07/20 01/08/21 History trazodone 50 mg tablet 50 mg PO HS 07/07/20 01/08/21 History cyclobenzaprine 10 mg tablet 10 mg PO TID PRN 09/01/20 01/08/21 History lidocaine 4 % topical patch 1 patch TOPICAL DAILY PRN 09/01/20 01/08/21 History promethazine 25 mg tablet 25 mg PO Q8H PRN 09/01/20 01/08/21 History oxycodone 5 mg tablet 2.5 mg PO Q8H PRN #10 tab 09/08/20 01/08/21 Rx albuterol sulfate 90 mcg/actuation 2 puff INHALATION QID PRN 01/08/21 01/08/21 History aerosol inhaler Patient History Medical History (Updated 01/09/21 @ 13:54 by BRAVO Lopez) Anemia hx of blood transfusion (post-operatively 10/2018) Anxiety 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 Lanza Surgical History H/O foot surgery RT HEEL SURGERY X 2 (HARDWARE INTACT) TOE CORRECTION X 3 (PINS INTACT ON RT FOOT) H/O shoulder surgery RT HUMERUS FX REPAIRED (HARDWARE INTACT) H/O wisdom tooth extraction H/O wrist surgery LEFT WRIST X 2 SURGERIES History of cholecystectomy History of colonoscopy History of esophagogastroduodenoscopy (EGD) History of gastrectomy secondary to PUD (OVER 10 YEARS AGO) History of hand surgery LEFT HAND FINGER REPAIR History of hysterectomy History of vascular access device MEDIPORT INTACT Family History Father Diabetes Mother Von Willebrand disease Grandmother (Paternal) Family hx of colon cancer Social History Smoking Status: Never smoker Second Hand Exposure: No; Hx Alcohol Use: Yes Alcohol type: wine Hx Substance Use: No Preferred Language: Czech Communication Ability: Effective 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 Beliefs That Will Affect Care: None marital status: Legally Current Living Situation: Alone Current Living Situation Comment: neighbors help occasionally with needs current occupational status: disabled How many Children do You have: 2 Feels Safe at Home: Yes Safety Concerns: Feels Safe At This Time Assistive Devices: None Review of Systems Review of Systems: All systems reviewed & are unremarkable except as noted in Subjective Physical Exam Physical Exam: Physical Exam: Constitutional: appearance nourished, healthy and normal Ears, Nose, Mouth and Throat: mucous membranes moist, no injection and skin normal, eyes normal Cardiovascular: normal S-1 and S-2 and regular rate and rhythm Respiratory: course breath sounds Musculoskeletal: no peripheral edema and good distal pulses Skin: no stigmata of neurocutaneous disease noted and normal and intact, lip laceration Eyes: extraocular muscles intact (EOMI) and pupils equal, round and reactive to light (PERRL) NEUROLOGIC EXAMINATION: Mental status: Alert and interactive Oriented to full date and location Oriented to person Speech fluent with no evidence of aphasia Cranial Nerves smile eye brow raise symmetric Reflexes: Deep tendon reflexes were symmetrical and brisk Sensory: intact to light and cool touch Coordination: finger to nose no bipass Gait/Stance: Posture normal. Gait normal: with steady with steps, base, turning, tandem gait. Motor: Negative for pronator drift of out stretched arms with eyes closed. 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, biceps triceps 5/5, hip flex planter patellar flex ext 5/5 Results & Data ([facility]) Vital Signs (Past 12 Hours) Vital Signs Temp Pulse Resp BP Pulse Ox 01/09/21 10:41 36.9 C 87 16 115/79 97 01/09/21 07:01 36.8 C 84 17 107/74 94 01/09/21 04:07 37.3 C 96 H 14 100/64 93 Laboratory Results Abnormal lab results 01/08/21 01/08/21 01/08/21 Range/Units 16:00 16:00 20:51 WBC 4.45 L (4.8-10.8) K/uL RBC (4.2-5.4) M/uL Hgb (12.0-16.0) g/dL Hct (37-47) % MCHC 31.9 L (32-36) g/dL RDW Std Deviation 71.2 H (36.4-46.3) fL RDW Coeff of Lisa 22.8 H (11.5-14.5) % Plt Count (130-400) K/uL MPV (7.4-10.4) fL Lymph # (Auto) 0.45 L (1.2-3.4) K/uL [place] # (Auto) 0.06 L (0.11-0.59) K/uL Immature Gran # (Auto) 0.04 H (0.00-0.02) K/uL Platelet Estimate (Normal) Sodium 133 L (136-145) mmol/L Potassium 3.2 L (3.5-5.1) mmol/L Chloride 96 L (98-107) mmol/L BUN 6 L (7-18) mg/dl Creatinine (0.6-1.2) mg/dl BUN/Creatinine Ratio 7.3 L (10-20) Glucose 175 H (70-99) mg/dl Calcium (8.5-10.1) mg/dl Magnesium 1.7 L (1.8-2.4) mg/dl Direct Bilirubin (0-0.2) mg/dl AST 289 H (15-37) U/L ALT 98 H (12-78) U/L Alkaline Phosphatase 261 H (45-117) U/L Total Protein (6.4-8.2) gm/dl Albumin 3.3 L (3.4-5.0) gm/dl Globulin 4.6 H (2.5-4.0) gm/dl Albumin/Globulin Ratio 0.7 L (0.9-2) Lipase 464 H (73-393) U/L Urine Appearance Cloudy A (Clear) Urine pH 8.0 H (4.5-7.5) Urine Nitrite Positive A (Negative) U Epithel Cells (Auto) 5-10 H (0-5) /lpf Urine Bacteria (Auto) 2+ H (Negative) 01/09/21 01/09/21 01/09/21 Range/Units 06:06 06:06 06:15 WBC 4.38 L (4.8-10.8) K/uL RBC 3.83 L (4.2-5.4) M/uL Hgb 10.0 L (12.0-16.0) g/dL Hct 32.8 L (37-47) % MCHC 30.5 L (32-36) g/dL RDW Std Deviation 71.1 H (36.4-46.3) fL RDW Coeff of Lisa 22.6 H (11.5-14.5) % Plt Count 122 L (130-400) K/uL MPV 10.7 H (7.4-10.4) fL Lymph # (Auto) 0.24 L (1.2-3.4) K/uL [place] # (Auto) (0.11-0.59) K/uL Immature Gran # (Auto) (0.00-0.02) K/uL Platelet Estimate Decreased L (Normal) Sodium (136-145) mmol/L Potassium 3.0 L (3.5-5.1) mmol/L Chloride (98-107) mmol/L BUN 6 L (7-18) mg/dl Creatinine 0.51 L D (0.6-1.2) mg/dl BUN/Creatinine Ratio (10-20) Glucose (70-99) mg/dl Calcium 8.2 L (8.5-10.1) mg/dl Magnesium (1.8-2.4) mg/dl Direct Bilirubin 0.4 H (0-0.2) mg/dl AST 206 H (15-37) U/L ALT (12-78) U/L Alkaline Phosphatase 192 H (45-117) U/L Total Protein 5.9 L D (6.4-8.2) gm/dl Albumin 2.4 L (3.4-5.0) gm/dl Globulin (2.5-4.0) gm/dl Albumin/Globulin Ratio (0.9-2) Lipase (73-393) U/L Urine Appearance (Clear) Urine pH (4.5-7.5) Urine Nitrite (Negative) U Epithel Cells (Auto) (0-5) /lpf Urine Bacteria (Auto) (Negative) Diagnostic Findings CT head-here is no hemorrhage, mass effect, or evidence of acute territorial ischemia by CT criteria. CT abd/pelvis-. Suboptimal examination without oral and IV contrast. . No acute infectious or inflammatory findings are identified in the abdomen or pelvis. . There is postoperative change from gastrectomy with esophagojejunostomy. No bowel obstruction is seen. Hepatomegaly and severe back steatosis. A mild compression deformity of L5 is age indeterminant but new from 09/01/2020. This may be acute to subacute.
[2021-01-09] MEDS ORDERED: POTASSIUM CHLORIDE CRTAB 20 MEQ TABCR PO STA (16:26)
[2021-01-09] MEDS ORDERED: levETIRAcetam 500 MG TAB PO SCH (16:30)
[2021-01-09] MEDS ORDERED: oxyCODONE HCL IR 5 MG TAB (IMMEDIATE RELEASE) PO PRN (16:36)
[2021-01-09] MEDS ORDERED: CYCLOBENZAPRINE HCL 10 MG TAB PO PRN (16:59)
--- NOTE | 2021-01-09 17:00 | Hospitalist Progress Note ---
Date of Service January 09, 2021 Assessment & Plan (1) Breakthrough seizure: Plan: 50-year-old female with history of seizure disorder, alcoholism, depression anxiety, von Willebrand disease, history of subdural hematoma and rectus sheath hematoma Presenting with seizures episodes at home. BREAKTHROUGH SEIZURES LIKELY SECONDARY TO ALCOHOL WITHDRAWAL ALSO FROM MEDICATION NONADHERENCE HISTORY OF SEIZURE DISORDER admits not being able to take Keppra regularly- "i just don't want to take a lot of medications" CT head: Negative Given Keppra 16534 mg on admission Usually on Keppra 1500 mg twice daily now alert, oriented x 3 Neurologist consulted recommend Brain MRI: pending recommend resume usual Keppra 1500mg BID emphasized strongly to patient re: medication adherence and she verbalized understanding and agreement ALCOHOL WITHDRAWAL Patient admits last drink 2 days ago, uses 1 bottle of wine twice a week Alcohol level normal LFTs elevated, total bilirubin normal, INR normal Doubt alcoholic pancreatitis at this point but will monitor closely Alcohol withdrawal protocol with gabapentin taper Ativan as needed for anxiety -- no signs of overt withdrawal monitor closely -- will need counselling regarding Alcohol rehab ABDOMINAL PAIN, VOMITING, DIARRHEA LIKELY ALCOHOLIC ACUTE PANCREATITIS POSSIBLY SECONDARY TO ALCOHOL WITHDRAWAL Lipase level mildly elevated at 464-->now 338 LR 200 cc/h ordered GI consulted- will need outpatient EUS -- abdominal pain improving -- diet advanced to clears decrease LR 100cc/hr -- monitor closely HYPOKALEMIA, HYPOMAGNESEMIA Likely secondary to vomiting -- will replace monitor FEVER, POSSIBLY FROM ALCOHOL WITHDRAWAL POSSIBLE SEPSIS, UTI- gram negative bacilli Lactic acid normal Blood culture: Pending urine culture: gram negative bacilli Stool culture and C. difficile: Pending Nasal MRSA: negative Chest x-ray: negtaive afebrile since last night d/c Vanco, continue Cefepime IV Day 2 History of depression anxiety patient reports she takes Trazodone, Zoloft daily also takes Ativan 1mg TID PRN with Phenergan for nausea Von Willebrand disease Monitor for bleeding History of subdural hematoma and rectus sheath hematoma DVT prophylaxis- SCDs for now given seizures, re-evaluated Disposition Pending lives bu herself at home will order PT/OT Admission and Anticipated Discharge Date Admission Date: January 08, 2021 Subjective ff up for breakthrough seizures, alcohol withdrawal, etc seen sitting up in bed, comfortable, in good spirits states she feels better today oriented x 3, answers all questions appropriately denies headache, dizziness, focal neuro symptoms remembers having a seizure 2 days ago, during which she lost upper front tooth reports mild epigastric pain today has intermittent nausea- chronic has baseline anxiety, but denies tremors, hallucinations denies depression, suicidal ideations no fever/chills, cough, chest pain, dyspnea, palpitations non other symptoms Review of Systems Review of Systems: all noted and negative except for above Physical Exam Physical Exam: General- oriented x 3, not in distress, speaks in sentences with no effort or accessory muscle use Eyes- anicteric Neck- no JVD Lungs- clear breath sounds bilaterally, no rales/wheezes Heart- normal rate, regular rhythm; no murmurs Abdomen- normal bowel sounds, nondistended, soft, mild epigatric tenderness Extremities- no pretibial edema, no calf tenderness Neuro- alert, oriented x 3; no gross focal neurologic deficits Skin- warm & dry Results & Data Results & Data ([facility]) Vital Signs (Past 12 Hours) Vital Signs Temp Pulse Resp BP Pulse Ox 01/09/21 15:24 36.3 C L 98 H 17 105/76 99 01/09/21 10:41 36.9 C 87 16 115/79 97 01/09/21 07:01 36.8 C 84 17 107/74 94 all noted and reviewed including below
[2021-01-09] MEDS: LORazepam 1 MG TAB PO PRN (17:17)
[2021-01-09] MEDS: PROMETHAZINE HCL 25 MG TAB PO PRN (17:17)
[2021-01-09] MEDS: POTASSIUM CHLORIDE / WTR 10 MEQ/100 ML PLCT IV SCH ×4 (17:18→21:25)
[2021-01-09] MEDS: levETIRAcetam 500 MG TAB PO SCH ×2 (17:46→23:03)
--- NOTE | 2021-01-09 18:24 | Electrocardiogram Report ---
Test Reason : Blood Pressure : / mmHG Vent. Rate : 095 BPM Atrial Rate : 095 BPM P-R Int : 122 ms QRS Dur : 074 ms QT Int : 360 ms P-R-T Axes : 036 034 060 degrees QTc Int : 452 ms Normal sinus rhythm Low voltage QRS Borderline ECG When compared with ECG of 08-JAN-2021 15:41, (unconfirmed) No significant change was found Confirmed by Henry Golden ([id number]) on 01/09/2021 6:24:15 PM Referred By: REFERRED SELF Confirmed By:Marcello Golden
[2021-01-09] MEDS: PANTOprazole 40 MG TAB PO SCH (21:11)
[2021-01-09] MEDS ORDERED: GADOBUTROL 65ML VIAL IV ONE (22:25)
[2021-01-10] MEDS: PROMETHAZINE HCL 25 MG TAB PO PRN ×3 (02:01→16:26)
[2021-01-10] MEDS: LORazepam 1 MG TAB PO PRN ×4 (02:01→21:18)
[2021-01-10] MEDS: ZOLPIDEM TARTRATE 5 MG TAB PO PRN ×2 (02:01→21:18)
[2021-01-10] MEDS: LACTATED RINGER'S 1,000 ML IV SCH ×2 (04:46→14:49)
[2021-01-10] MEDS: CEFEPIME 2,000 MG in SYRINGE 0 ML IV SCH (05:17)
[2021-01-10] MEDS: GABAPENTIN 600 MG TAB PO SCH ×2 (05:17→14:09)
[2021-01-10 06:21] LABS: Mean Corpuscular Hgb Conc 30.5 g/dL (32-36)
[2021-01-10 06:28] LABS: Hematocrit (blood only) 32.5 % (37-47); Hemoglobin 9.9 g/dL (12.0-16.0); Mean Corpuscular Hemoglobin 26.5 pg (25-34); Mean Corpuscular Volume 87.1 fL (80-100); RDW Coefficient of Variation 22.6 % (11.5-14.5); RDW Standard Deviation 72.6 fL (36.4-46.3); Red Blood Count 3.73 M/uL (4.2-5.4); White Blood Count 2.85 K/uL (4.8-10.8)
[2021-01-10 06:50] LABS: Anisocytosis Present; Basophils # (auto) 0.04 K/uL (0-0.2); Basophils % (auto) 1.4 %; Eosinophils # (auto) 0.36 K/uL (0-0.5); Eosinophils % (auto) 12.6 %; Lymphocytes # (auto) 0.41 K/uL (1.2-3.4); Lymphocytes % (auto) 14.4 %; Mean Platelet Volume 11.1 fL (7.4-10.4); Monocytes # (auto) 0.32 K/uL (0.11-0.59); Monocytes % (auto) 11.2 %; Neutrophils # (auto) 1.72 K/uL (1.4-6.5); Neutrophils % (auto) 60.4 %; Platelet Count 114 K/uL (130-400); Platelet Estimate Decreased (Normal)
[2021-01-10 07:00] LABS: Albumin Level 2.3 gm/dl (3.4-5.0); Bilirubin Direct 0.3 mg/dl (0-0.2); Creatinine Clr Calc Pharmacy 103.8 ml/min; Est GFR (African American) 122.3 ml/min; Est GFR (Non-African American) 105.5 ml/min; Potassium 3.6 mmol/L (3.5-5.1)
[2021-01-10 07:03] LABS: Bilirubin,Total 0.7 mg/dl (0.2-1); Total Protein 5.7 gm/dl (6.4-8.2)
[2021-01-10 07:04] LABS: Cdiff Antigen Positive; Cdiff Toxin A+B Negative Cdiff Toxin (Negative)
[2021-01-10] MEDS: THIAMINE HCL 100 MG in SYRINGE 9 ML IV SCH (08:28)
[2021-01-10] MEDS: FOLIC ACID 1 MG in SYRINGE 9.8 ML IV SCH (08:28)
[2021-01-10] MEDS: levETIRAcetam 500 MG TAB PO SCH ×2 (08:29→20:28)
[2021-01-10] MEDS: SERTRALINE HCL 50 MG TABLET PO SCH (08:29)
[2021-01-10] MEDS: FEXOFENADINE HCL 180 MG TAB PO SCH (08:29)
[2021-01-10] MEDS: PANTOprazole 40 MG TAB PO SCH ×2 (08:29→20:28)
--- NOTE | 2021-01-10 09:01 | Magnetic Resonance Report ---
Brain MRI WITH AND WITHOUT CONTRAST HISTORY: breakthrough seizure TECHNIQUE: Multiplanar multisequence MRI of the brain was performed both before and after the intrave nous administration of contrast. COMPARISON STUDY: Head CT 01/08/2021. FINDINGS: Trace old right parafalcine subdural hematoma. Minimal enhancement at the falx is likely du e to the old subdural hematoma. There is no mass, midline shift, acute infarct. The ventricles and hull lci demonstrate mild age-related involutional changes. Mucosal thickening within the floor the left m axilla sinus. The remaining paranasal sinuses and mastoid air cells are clear. The major vascular bashir w at the skull base are well-maintained. The temporal lobes are symmetric. Faint focus of enhancement within the left hemipons measuring 6 mm remains stable. Therefore, this favors a small capillary tel angectasia and is of doubtful clinical significance. IMPRESSION: 1. No acute infarct. 2. Trace old right parafalcine subdural hematoma. ACT 112: Negative or not required by law. Electronically signed by: Hadley Soni M.D. 01/10/2021 9:00 AM
--- NOTE | 2021-01-10 16:46 | Hospitalist Progress Note ---
Date of Service January 10, 2021 Assessment & Plan (1) Breakthrough seizure: Plan: 50-year-old female with history of seizure disorder, alcoholism, depression anxiety, von Willebrand disease, history of subdural hematoma and rectus sheath hematoma Presenting with seizures episodes at home. BREAKTHROUGH SEIZURES HISTORY OF SEIZURE DISORDER Mostly from medication non adherence vs alcohol withdrawal CT head showed no acute intracranial finding MRI showed no acute infarct. Trace old right parafalcine subdural hematoma. neurology on board recommended to resume home dose keppra 1500mg BID No driving for 6 months from last seizure date, no heights, no bathing or swimming alone emphasized strongly to patient re: medication adherence and she verbalized understanding and agreement follow up with neurology Caitlin Christianson [facility] 4-6 weeks after discharge Seizure precaution ALCOHOL WITHDRAWAL Patient admits last drink 2 days ago, uses 1 bottle of wine twice a week She said that she only drinks on weekend Alcohol level normal LFTs elevated, total bilirubin normal, INR normal Doubt alcoholic pancreatitis at this point but will monitor closely Alcohol withdrawal protocol with gabapentin taper Ativan as needed for anxiety Counseling on alcohol cessation -- no signs of overt withdrawal -- will need counselling regarding Alcohol rehab ABDOMINAL PAIN, VOMITING, DIARRHEA LIKELY ALCOHOLIC ACUTE PANCREATITIS POSSIBLY SECONDARY TO ALCOHOL WITHDRAWAL Lipase level mildly elevated at 464--> 338--> 190 CT abd/pelvis showed no acute infectious or inflammatory findings are identified in the abdomen or pelvis. LR 200 cc/h ordered Gastro on board recommended EUS in 4 to 6 weeks as an OP. advanced as tolerated Will d/c IV fluid Clinically improves HYPOKALEMIA, HYPOMAGNESEMIA Likely secondary to vomiting electrolytes stable Continue monitor UTI Fever urine cx grew Ecoli Lactic acid normal Blood cx no growth received IV Vanco that was discontinued and currently on cefepime day #3 Stool culture and C. difficile negative for Cdiff toxin Will transition to Po abx Macrobid History of depression anxiety patient reports she takes Trazodone, Zoloft daily also takes Ativan 1mg TID PRN with Phenergan for nausea Von Willebrand disease Monitor for bleeding History of subdural hematoma and rectus sheath hematoma DVT prophylaxis- SCDs for now given seizures, re-evaluated Disposition Discharge home today Admission and Anticipated Discharge Date Admission Date: January 08, 2021 Subjective Pt was seen and examined for follow up of seizure and alcohol withdrawn Pt said that she feels much better She said that she does have a little tenderness in her abdomen She said that she only drinks on weekend during football games denies any history of alcohol withdraw or DT Denies any chest pain, palpitation, dizziness and SOB Review of Systems Review of Systems: All systems reviewed & are unremarkable except as noted in Subjective Physical Exam Physical Exam: General- No acute distress Head- atraumatic Eyes- +legally blind ENT- oropharynx clear Neck- supple, no JVD Lungs- clear to auscultation Heart- regular rhythm; no murmur Abdomen- normal bowel sounds, soft, +mild tenderness Extremities- no calf tenderness Neuro- alert, oriented x 3; PERRL, EOMI; no facial palsy; no dysarthria Skin- warm & dry Results & Data Results & Data ([facility]) Vital Signs (Past 12 Hours) Vital Signs Temp Pulse Resp BP Pulse Ox 01/10/21 15:15 36.8 C 100 H 19 120/77 98 01/10/21 11:12 36.8 C 86 18 122/86 98 01/10/21 07:50 36.8 C 78 18 120/86 96 01/10/21 05:12 37.1 C 92 H 16 99/70 L 97
[2021-01-11] MEDS: GABAPENTIN 600 MG TAB PO SCH ×2 (04:33→13:40)
[2021-01-11 07:18] LABS: Hemoglobin 9.9 g/dL (12.0-16.0); Mean Corpuscular Hgb Conc 30.9 g/dL (32-36); Mean Corpuscular Volume 87.2 fL (80-100); Platelet Count 156 K/uL (130-400); RDW Coefficient of Variation 22.1 % (11.5-14.5); RDW Standard Deviation 71.3 fL (36.4-46.3); Red Blood Count 3.67 M/uL (4.2-5.4); White Blood Count 3.87 K/uL (4.8-10.8)
[2021-01-11 07:45] LABS: Albumin Level 2.3 gm/dl (3.4-5.0); BUN Creatinine Ratio 6.4 (10-20); Bilirubin Direct 0.3 mg/dl (0-0.2); Calcium 7.8 mg/dl (8.5-10.1); Creatinine Clr Calc Pharmacy 131.9 ml/min; Est GFR (African American) 132.6 ml/min; Est GFR (Non-African American) 114.4 ml/min; Potassium 3.5 mmol/L (3.5-5.1)
[2021-01-11 07:47] LABS: Bilirubin,Total 0.7 mg/dl (0.2-1); Total Protein 5.7 gm/dl (6.4-8.2)
[2021-01-11] MEDS: levETIRAcetam 500 MG TAB PO SCH (08:35)
[2021-01-11] MEDS: FOLIC ACID 1 MG in SYRINGE 9.8 ML IV SCH (08:36)
[2021-01-11] MEDS: THIAMINE HCL 100 MG in SYRINGE 9 ML IV SCH (08:36)
[2021-01-11] MEDS: SERTRALINE HCL 50 MG TABLET PO SCH (08:37)
[2021-01-11] MEDS: PANTOprazole 40 MG TAB PO SCH (08:38)
[2021-01-11] MEDS: FEXOFENADINE HCL 180 MG TAB PO SCH (08:38)
[2021-01-11] MEDS: LORazepam 1 MG TAB PO PRN (08:51)
[2021-01-11] MEDS: PROMETHAZINE HCL 25 MG TAB PO PRN (08:51)
[2021-01-11] MEDS: LACTATED RINGER'S 1,000 ML IV SCH (09:44)
[2021-01-11] MEDS ORDERED: NITROFURANTOIN MONOHYDRATE 100 MG CAP PO SCH (12:15)
--- NOTE | 2021-01-11 12:54 | Discharge Summary ---
Date of Service January 11, 2021 Admission HPI Per Admitting Provider 50-year-old female with history of seizure disorder, alcoholism, depression anxiety, von Willebrand disease, history of subdural hematoma and rectus sheath hematoma Presenting with seizures episodes at home. History obtained from ER records, previous admission records, [facility] outpatient records and patient interview. Patient was brought in here by EMS after a call from patient's boyfriend as patient was having multiple seizures at home. Patient arrived at the ER postictal. She was given IV Keppra 1000 mg loading dose, and Ativan IV. Afterwards, patient was more awake and alert, answering questions. On exam, patient was seen resting in bed, sleeping but easily awakened. Reports central abdominal pain which has been going on for the past few days. This is associated with nausea, vomiting-nonbloody, and diarrhea-nonbloody as well. Reports mild headache at the parietal region but denies dizziness, neck pain. No cough, chest pain, shortness of breath. Denies fevers or chills at home. No other symptoms. Occasionally patient will be confused with answers, but for the most part is oriented x3 and answering all questions appropriately. Discharge Data Allergies Allergy/AdvReac Type Severity Reaction Status Date / Time iron dextran complex Allergy Severe SOB, heart Verified 01/08/21 20:18 racing (see comments) cat dander Allergy Intermediate eye Verified 01/08/21 20:18 watering ceftriaxone Allergy Intermediate Hives Verified 01/08/21 20:18 ciprofloxacin Allergy Intermediate lips Verified 01/08/21 20:18 burning/peeling doxycycline Allergy Intermediate hives, Verified 01/08/21 20:18 vomiting latex Allergy Intermediate mouth Verified 01/08/21 20:18 hives/burning sensation Penicillins Allergy Intermediate Hives Verified 01/08/21 20:18 Quinolones Allergy Intermediate Hives Verified 01/08/21 20:18 Sulfa (Sulfonamide Allergy Intermediate hives Verified 01/08/21 20:18 Antibiotics) Aminoglycosides Allergy Unknown unknown Verified 01/08/21 20:18 reaction tobramycin AdvReac Severe blindness Verified 09/01/20 15:15 citalopram AdvReac Mild restlessnes Verified 09/01/20 15:15 s Ferric Oxide Allergy Intermediate hives (see Uncoded 09/01/20 15:15 comments) Consultations 01/08/21 17:58 ED Decision to Admit Stat 01/09/21 08:00 Consult Gastroenterology Routine Consult Neurology Routine Ordered Studies 01/08/21 15:47 CT head/brain wo con Stat 01/08/21 15:52 CT abd pelvis wo con Stat 01/09/21 16:42 MR brain wo/w con Routine Hospital Course (1) Breakthrough seizure: 50-year-old female with history of seizure disorder, alcoholism, depression anxiety, von Willebrand disease, history of subdural hematoma and rectus sheath hematoma Presenting with seizures episodes at home. BREAKTHROUGH SEIZURES HISTORY OF SEIZURE DISORDER Mostly from medication non adherence vs alcohol withdrawal CT head showed no acute intracranial finding MRI showed no acute infarct. Trace old right parafalcine subdural hematoma. neurology on board recommended to resume home dose keppra 1500mg BID No driving for 6 months from last seizure date, no heights, no bathing or swimming alone emphasized strongly to patient re: medication adherence and she verbalized understanding and agreement follow up with neurology Caitlin Christianson PAC 4-6 weeks after discharge Seizure precaution ALCOHOL WITHDRAWAL Patient admits last drink 2 days ago, uses 1 bottle of wine twice a week She said that she only drinks on weekend Alcohol level normal LFTs elevated, total bilirubin normal, INR normal Doubt alcoholic pancreatitis at this point but will monitor closely Alcohol withdrawal protocol with gabapentin taper Ativan as needed for anxiety Counseling on alcohol cessation -- no signs of overt withdrawal -- will need counselling regarding Alcohol rehab ABDOMINAL PAIN, VOMITING, DIARRHEA LIKELY ALCOHOLIC ACUTE PANCREATITIS POSSIBLY SECONDARY TO ALCOHOL WITHDRAWAL Lipase level mildly elevated at 464--> 338--> 190 CT abd/pelvis showed no acute infectious or inflammatory findings are identified in the abdomen or pelvis. LR 200 cc/h ordered Gastro on board recommended EUS in 4 to 6 weeks as an OP. advanced as tolerated Will d/c IV fluid Clinically improves HYPOKALEMIA, HYPOMAGNESEMIA Likely secondary to vomiting electrolytes stable Continue monitor UTI Fever urine cx grew Ecoli Lactic acid normal Blood cx no growth received IV Vanco that was discontinued and currently on cefepime day #3 Stool culture and C. difficile negative for Cdiff toxin Will transition to Po abx Macrobid History of depression anxiety patient reports she takes Trazodone, Zoloft daily also takes Ativan 1mg TID PRN with Phenergan for nausea Von Willebrand disease Monitor for bleeding History of subdural hematoma and rectus sheath hematoma DVT prophylaxis- SCDs for now given seizures, re-evaluated Disposition Discharge home today Discharge Plan Discharge Items Reason For Visit: BREAKTHROUGH SEIZURES Follow-up/Referrals: Jaspal Bae MD [Primary Care Provider] - (Date & Time 01/18/2021 2:00 PM Provider Jaspal Bae III, MD Department [facility] ) Medications and DC Order Prescriptions: No Action levetiracetam [Keppra] 500 mg tablet 1,500 mg PO BID RF: 0 gabapentin 400 mg capsule 400 mg PO TID RF: 0 lorazepam 1 mg tablet 0.5 - 1 mg PO Q8H PRN (Reason: Anxiety) RF: 0 pantoprazole [Protonix] 40 mg tablet,delayed release (DR/EC) 40 mg PO BID RF: 0 fexofenadine [Maame Allergy] 180 mg Tablet 180 mg PO DAILY RF: 0 albuterol sulfate 90 mcg/actuation Hfa Aerosol Inhaler 2 puff INHALATION QID PRN (Reason: Shortness Of Breath Or Wheezing) RF: 0 trazodone 50 mg tablet 50 mg PO HS RF: 0 sertraline 50 mg tablet 50 mg PO DAILY RF: 0 cyclobenzaprine 10 mg tablet 10 mg PO TID PRN (Reason: muscle spasms) RF: 0 lidocaine 4 % Adhesive Patch,Medicated 1 patch TOPICAL DAILY PRN (Reason: Pain) RF: 0 promethazine 25 mg tablet 25 mg PO Q8H PRN (Reason: Nausea And Vomiting) RF: 0 oxycodone 5 mg tablet 2.5 mg PO Q8H PRN (Reason: pain) Qty: 10 RF: 0 Admission Data Admit Date/Time: 01/08/21 18:55 Attending Provider: Jose Alonso Admit Provider: Maynor Santos Primary Care Provider: Jaspal Bae Other Providers: Maynor Santos ; Luis Armando Erickson ; Loren Pickett ; Sheela Ogden ; Meeta Lyon ; Derrick Valiente ; Kathryn Amezcua ; Bisi Garcia ; Alf Coughlin ; Cindy Gamble ; Kacy Mai ; Mary Plummer ; Manisha Diggs ; Blanco Brady ; Caitlin Christianson ; Jaspal Aguilar ; Caitlin Hurst ; Aki Valiente. ; [facility]
[2021-01-12] MEDS ORDERED: GABAPENTIN 600 MG TAB PO SCH (12:00)
== END 2021-01-11 13:41 | disposition home health service (06) | DRG 896 ==
LOC: ED 15:16 → SUATTDRO 18:55 → 2S 18:55

== ENCOUNTER 2021-02-23 15:18 | Observation (INO) ==
[2021-02-23] MEDS ORDERED: MoRPHine SULFATE 4 MG/ML 1 ML CARP\\VIAL IV STA ×2 (16:29→18:58)
[2021-02-23] MEDS ORDERED: SODIUM CHLORIDE 0.9% 500 ML IV SCH (16:30)
--- NOTE | 2021-02-23 16:33 | Emergency Department Note ---
Impression & Plan Compression fracture Admission ED Provider Note HPI: The patient is a 50-year-old female with history of seizure disorder, presents the emergency department with a chief complaint of a fall last night around 3:30 in the morning. Patient states that she does not remember exactly what happened, states that she was watching TV with her neighbor and she fell in the kitchen. She states that she stayed there for most of the night despite her neighbor knowing this, he checked on her again in the mid afternoon and found her on the floor and therefore contacted EMS. Patient states she is unsure whether or not she might of had a seizure. Patient complains of pain in her lower back, complains of pain in her chest, also pain in her head and her neck. She is anxious on arrival, states she has severe pain throughout her entire back, she is alert otherwise, she does have motor function intact distally in her feet and in her hands. She is tearful on arrival but saturating well on room air without respiratory distress. ROS: -MSK: Back pain status post fall *10 point review systems was conducted and is otherwise negative unless stated above *Outpatient medications and allergy history reviewed PE: General: Alert HEENT: Normocephalic, atraumatic, trachea midline, cervical hard collar in place Eyes: Extraocular eye movement is intact, no scleral erythema Pulmonary: Clear to auscultation bilaterally, no wheezing Cardio: Tachycardic rate and regular rhythm GI: Abdomen is soft, nontender : No suprapubic tenderness MSK: There is tenderness throughout the entire thoracic, lumbar, and sacral area with palpation, no step-off deformity or fluctuance Skin: No evidence of rash Neuro: Alert, no focal deficits, patient ambulates extremities spontaneously, sensation and motor function is intact distally in the lower extremities Psychiatric: Cooperative environmental monitoring technician: Order placed, patient is in sinus rhythm EKG: Time: 1523 Rate: 116 Rhythm: Sinus tachycardia Intervals: Within normal limits ST changes: No ST elevation Medical Decision Making: Patient presented to the emergency department after reported fall greater than 12 hours after the event. On arrival here to the ED she is complaining of pain throughout her entire back, also her chest, she is alert, she is not in any respiratory distress. CT imaging of the head and cervical spine did not show any evidence of acute traumatic injuries. CT imaging of the chest, as well as the abdomen and pelvis show evidence of multiple compression deformities in the thoracic spine includi ng T4 and T11. Patient does have pain throughout almost the entire spine, these are of unknown acuity however given the patient's pain and fall last night I do suspect that there is an acute component to these fractures. She does not have any motor or sensory deficits distally in her lower extremities, she is otherwise alert and in no acute distress on my reassessment following pain medication. Patient states that she is in too much pain to ambulate, states that she believes she needs to be admitted for pain control as well as physical therapy. I did therefore discussed the case with the on-call hospitalist, Dr. Reese, who accepted the patient for further management. Patient was in agreement to the above plan and she was admitted in stable condition. 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 Lanza Surgical History H/O foot surgery RT HEEL SURGERY X 2 (HARDWARE INTACT) TOE CORRECTION X 3 (PINS INTACT ON RT FOOT) H/O shoulder surgery RT HUMERUS FX REPAIRED (HARDWARE INTACT) H/O wisdom tooth extraction H/O wrist surgery LEFT WRIST X 2 SURGERIES History of cholecystectomy History of colonoscopy History of esophagogastroduodenoscopy (EGD) History of gastrectomy secondary to PUD (OVER 10 YEARS AGO) History of hand surgery LEFT HAND FINGER REPAIR History of hysterectomy History of vascular access device MEDIPORT INTACT Family History Father Diabetes Mother Von Willebrand disease Grandmother (Paternal) Family hx of colon cancer Social History Smoking Status: Never smoker Second Hand Exposure: No; Hx Alcohol Use: Yes Alcohol type: wine Hx Substance Use: No Preferred Language: Wolof Communication Ability: Effective Tubing Oiler Required: No Beliefs That Will Affect Care: None marital status: Legally Current Living Situation: Alone Current Living Situation Comment: neighbors help occasionally with needs current occupational status: disabled How many Children do You have: 2 Feels Safe at Home: Yes Assistive Devices: None Allergies Allergies Allergy/AdvReac Type Severity Reaction Status Date / Time iron dextran complex Allergy Severe SOB, heart Verified 02/23/21 17:22 racing (see comments) cat dander Allergy Intermediate eye Verified 02/23/21 17:22 watering ceftriaxone Allergy Intermediate Hives Verified 02/23/21 17:22 ciprofloxacin Allergy Intermediate lips Verified 02/23/21 17:22 burning/peeling doxycycline Allergy Intermediate hives, Verified 02/23/21 17:22 vomiting latex Allergy Intermediate mouth Verified 02/23/21 17:22 hives/burning sensation Penicillins Allergy Intermediate Hives Verified 02/23/21 17:22 Quinolones Allergy Intermediate Hives Verified 02/23/21 17:22 Sulfa (Sulfonamide Allergy Intermediate hives Verified 02/23/21 17:22 Antibiotics) Aminoglycosides Allergy Unknown unknown Verified 02/23/21 17:22 reaction tobramycin AdvReac Severe blindness Verified 02/23/21 17:22 citalopram AdvReac Mild restlessnes Verified 02/23/21 17:22 s Ferric Oxide Allergy Intermediate hives (see Uncoded 02/23/21 17:22 comments) Home Meds Home Medications Medication Instructions Recorded Confirmed pantoprazole 40 mg tablet,delayed 40 mg PO BID 01/29/18 02/23/21 release (Protonix) levetiracetam 500 mg tablet 1,500 mg PO BID 07/07/18 02/23/21 (Keppra) gabapentin 400 mg capsule 400 mg PO TID 11/18/18 02/23/21 fexofenadine 180 mg tablet 180 mg PO DAILY 09/22/19 02/23/21 (Maame Allergy) lorazepam 1 mg tablet 0.5 - 1 mg PO Q8H PRN 04/12/20 02/23/21 sertraline 50 mg tablet 50 mg PO DAILY 07/07/20 02/23/21 trazodone 50 mg tablet 50 mg PO HS 07/07/20 02/23/21 cyclobenzaprine 10 mg tablet 10 mg PO TID PRN 09/01/20 02/23/21 promethazine 25 mg tablet 25 mg PO Q8H PRN 09/01/20 02/23/21 Results & Data (ED) Vital Signs Vital Signs - 24 hr 02/23/21 15:36 02/23/21 16:26 02/23/21 16:40 Temperature 37.3 C Temperature Source Oral Pulse Rate 119 H 119 H Pulse Rate [Left] 114 H Pulse Rhythm Regular Pulse Rhythm [Left] Regular Pulse Strength [Left] Normal Respiratory Rate 20 20 24 Respiratory Effort / Characteristics Non-Labored Non-Labored Respiratory Depth Normal Normal Respiratory Pattern Regular Blood Pressure 153/104 H Blood Pressure [Right Arm] 158/105 H Blood Pressure Mean 120 Blood Pressure Mean [Right Arm] 122 Blood Pressure Position Lying Blood Pressure Position [Right Arm] Pulse Oximetry 99 98 97 Oxygen Delivery Method Room Air Room Air Room Air Sepsis Recent Fever Within 48 Hours No Sepsis New/Unexplained Change in Mental Status No Sepsis Action Taken by Nursing No Action Required 02/23/21 17:31 02/23/21 18:39 02/23/21 18:51 Temperature Temperature Source Pulse Rate Pulse Rate [Left] 113 H 112 H 109 H Pulse Rhythm Pulse Rhythm [Left] Regular Pulse Strength [Left] Normal Respiratory Rate 20 20 20 Respiratory Effort / Characteristics Non-Labored Non-Labored Respiratory Depth Normal Normal Respiratory Pattern Blood Pressure Blood Pressure [Right Arm] 142/92 H 141/98 H 141/98 H Blood Pressure Mean Blood Pressure Mean [Right Arm] 108 112 112 Blood Pressure Position Blood Pressure Position [Right Arm] Lying Pulse Oximetry 95 98 98 Oxygen Delivery Method Room Air Room Air Room Air Sepsis Recent Fever Within 48 Hours Sepsis New/Unexplained Change in Mental Status Sepsis Action Taken by Nursing 02/23/21 19:00 02/23/21 19:39 02/23/21 20:10 Temperature Temperature Source Pulse Rate Pulse Rate [Left] 116 H 111 H 110 H Pulse Rhythm Pulse Rhythm [Left] Pulse Strength [Left] Respiratory Rate 20 20 20 Respiratory Effort / Characteristics Respiratory Depth Respiratory Pattern Blood Pressure Blood Pressure [Right Arm] 143/106 H 146/98 H 126/96 Blood Pressure Mean Blood Pressure Mean [Right Arm] 118 114 106 Blood Pressure Position Blood Pressure Position [Right Arm] Pulse Oximetry 98 94 97 Oxygen Delivery Method Room Air Room Air Sepsis Recent Fever Within 48 Hours Sepsis New/Unexplained Change in Mental Status Sepsis Action Taken by Nursing Laboratory Data Result diagrams: 02/23/21 16:32 02/23/21 16:32 Lab Results 02/23/21 02/23/21 02/23/21 Range/Units 16:32 16:32 16:32 WBC 12.13 H (4.8-10.8) K/uL RBC 4.34 (4.2-5.4) M/uL Hgb 12.2 (12.0-16.0) g/dL Hct 37.2 (37-47) % MCV 85.7 (80-100) fL MCH 28.1 (25-34) pg MCHC 32.8 (32-36) g/dL RDW Std Deviation 58.8 H (36.4-46.3) fL RDW Coeff of Lisa 18.6 H (11.5-14.5) % Plt Count 481 H (130-400) K/uL MPV 9.8 (7.4-10.4) fL Immature Gran % (Auto) 0.3 % Neut % (Auto) 86.3 % Lymph % (Auto) 13.0 % Emanuel % (Auto) 0.2 % Eos % (Auto) 0.0 % Baso % (Auto) 0.2 % Neut # (Auto) 10.47 H (1.4-6.5) K/uL Lymph # (Auto) 1.58 (1.2-3.4) K/uL Emanuel # (Auto) 0.02 L (0.11-0.59) K/uL Eos # (Auto) 0.00 (0-0.5) K/uL Baso # (Auto) 0.02 (0-0.2) K/uL Immature Gran # (Auto) 0.04 H (0.00-0.02) K/uL PT 9.8 (9.0-12.0) Seconds INR 1.0 (0.9-1.1) Sodium 137 (136-145) mmol/L Potassium 4.2 (3.5-5.1) mmol/L Chloride 107 (98-107) mmol/L Carbon Dioxide 18 L (21-32) mmol/L Anion Gap 12.0 H (3-11) BUN 6 L (7-18) mg/dl Creatinine 0.56 L (0.6-1.2) mg/dl Est Cr Clr Drug Dosing 106.9 ml/min Est GFR ( Amer) 125.1 ml/min Est GFR (Non-Af Amer) 108.0 ml/min BUN/Creatinine Ratio 9.9 L (10-20) Glucose 120 H (70-99) mg/dl Calcium 9.3 (8.5-10.1) mg/dl Magnesium 1.9 (1.8-2.4) mg/dl Total Bilirubin 0.6 (0.2-1) mg/dl AST 108 H (15-37) U/L ALT 50 (12-78) U/L Alkaline Phosphatase 167 H (45-117) U/L Total Creatine Kinase 55 (26-192) U/L Total Protein 7.8 (6.4-8.2) gm/dl Albumin 3.2 L (3.4-5.0) gm/dl Globulin 4.6 H (2.5-4.0) gm/dl Albumin/Globulin Ratio 0.7 L (0.9-2) Lipase 39 L (73-393) U/L Procalcitonin (0-0.5) ng/ml TSH 1.460 (0.300-4.500) uIu/ml Urine Color Urine Appearance (Clear) Urine pH (4.5-7.5) Ur Specific Tensed (1.000-1.030) Urine Protein (Negative) Urine Glucose (UA) (Negative) Urine Ketones (Negative) Urine Blood (Negative) Urine Nitrite (Negative) Urine Bilirubin (Negative) Urine Urobilinogen (Negative) Ur Leukocyte Esterase (Negative) Urine WBC (Auto) (0-5) /hpf Urine RBC (Auto) (0-4) /hpf U Hyaline Cast (Auto) (0-5) /lpf U Epithel Cells (Auto) (0-5) /lpf Urine Bacteria (Auto) (Negative) Urine Opiates Screen (Neg) Ur Methadone, Qual (Neg) Urine Barbiturates (Neg) Ur Phencyclidine (PCP) (Neg) U Amphetamin/Meth Scrn (Neg) MDMA (Ecstasy) Screen (Neg) U Benzodiazepines Scrn (Neg) Ur Cocaine Metabolite (Neg) U Marijuana (THC) Screen (Neg) Ethyl Alcohol mg/dL (0-3) mg/dl 10/02/23/21 02/23/21 Range/Units 16:32 16:32 16:33 WBC (4.8-10.8) K/uL RBC (4.2-5.4) M/uL Hgb (12.0-16.0) g/dL Hct (37-47) % MCV (80-100) fL MCH (25-34) pg MCHC (32-36) g/dL RDW Std Deviation (36.4-46.3) fL RDW Coeff of Lisa (11.5-14.5) % Plt Count (130-400) K/uL MPV (7.4-10.4) fL Immature Gran % (Auto) % Neut % (Auto) % Lymph % (Auto) % Emanuel % (Auto) % Eos % (Auto) % Baso % (Auto) % Neut # (Auto) (1.4-6.5) K/uL Lymph # (Auto) (1.2-3.4) K/uL Emanuel # (Auto) (0.11-0.59) K/uL Eos # (Auto) (0-0.5) K/uL Baso # (Auto) (0-0.2) K/uL Immature Gran # (Auto) (0.00-0.02) K/uL PT (9.0-12.0) Seconds INR (0.9-1.1) Sodium (136-145) mmol/L Potassium (3.5-5.1) mmol/L Chloride (98-107) mmol/L Carbon Dioxide (21-32) mmol/L Anion Gap (3-11) BUN (7-18) mg/dl Creatinine (0.6-1.2) mg/dl Est Cr Clr Drug Dosing ml/min Est GFR ( Amer) ml/min Est GFR (Non-Af Amer) ml/min BUN/Creatinine Ratio (10-20) Glucose (70-99) mg/dl Calcium (8.5-10.1) mg/dl Magnesium (1.8-2.4) mg/dl Total Bilirubin (0.2-1) mg/dl AST (15-37) U/L ALT (12-78) U/L Alkaline Phosphatase (45-117) U/L Total Creatine Kinase (26-192) U/L Total Protein (6.4-8.2) gm/dl Albumin (3.4-5.0) gm/dl Globulin (2.5-4.0) gm/dl Albumin/Globulin Ratio (0.9-2) Lipase Cancelled (73-393) U/L Procalcitonin < 0.05 (0-0.5) ng/ml TSH (0.300-4.500) uIu/ml Urine Color Urine Appearance (Clear) Urine pH (4.5-7.5) Ur Specific Tensed (1.000-1.030) Urine Protein (Negative) Urine Glucose (UA) (Negative) Urine Ketones (Negative) Urine Blood (Negative) Urine Nitrite (Negative) Urine Bilirubin (Negative) Urine Urobilinogen (Negative) Ur Leukocyte Esterase (Negative) Urine WBC (Auto) (0-5) /hpf Urine RBC (Auto) (0-4) /hpf U Hyaline Cast (Auto) (0-5) /lpf U Epithel Cells (Auto) (0-5) /lpf Urine Bacteria (Auto) (Negative) Urine Opiates Screen (Neg) Ur Methadone, Qual (Neg) Urine Barbiturates (Neg) Ur Phencyclidine (PCP) (Neg) U Amphetamin/Meth Scrn (Neg) MDMA (Ecstasy) Screen (Neg) U Benzodiazepines Scrn (Neg) Ur Cocaine Metabolite (Neg) U Marijuana (THC) Screen (Neg) Ethyl Alcohol mg/dL < 3.0 (0-3) mg/dl 02/23/21 02/23/21 Range/Units 21:15 21:15 WBC (4.8-10.8) K/uL RBC (4.2-5.4) M/uL Hgb (12.0-16.0) g/dL Hct (37-47) % MCV (80-100) fL MCH (25-34) pg MCHC (32-36) g/dL RDW Std Deviation (36.4-46.3) fL RDW Coeff of Lisa (11.5-14.5) % Plt Count (130-400) K/uL MPV (7.4-10.4) fL Immature Gran % (Auto) % Neut % (Auto) % Lymph % (Auto) % Emanuel % (Auto) % Eos % (Auto) % Baso % (Auto) % Neut # (Auto) (1.4-6.5) K/uL Lymph # (Auto) (1.2-3.4) K/uL Emanuel # (Auto) (0.11-0.59) K/uL Eos # (Auto) (0-0.5) K/uL Baso # (Auto) (0-0.2) K/uL Immature Gran # (Auto) (0.00-0.02) K/uL PT (9.0-12.0) Seconds INR (0.9-1.1) Sodium (136-145) mmol/L Potassium (3.5-5.1) mmol/L Chloride (98-107) mmol/L Carbon Dioxide (21-32) mmol/L Anion Gap (3-11) BUN (7-18) mg/dl Creatinine (0.6-1.2) mg/dl Est Cr Clr Drug Dosing ml/min Est GFR ( Amer) ml/min Est GFR (Non-Af Amer) ml/min BUN/Creatinine Ratio (10-20) Glucose (70-99) mg/dl Calcium (8.5-10.1) mg/dl Magnesium (1.8-2.4) mg/dl Total Bilirubin (0.2-1) mg/dl AST (15-37) U/L ALT (12-78) U/L Alkaline Phosphatase (45-117) U/L Total Creatine Kinase (26-192) U/L Total Protein (6.4-8.2) gm/dl Albumin (3.4-5.0) gm/dl Globulin (2.5-4.0) gm/dl Albumin/Globulin Ratio (0.9-2) Lipase (73-393) U/L Procalcitonin (0-0.5) ng/ml TSH (0.300-4.500) uIu/ml Urine Color Yellow Urine Appearance Clear (Clear) Urine pH 6.0 (4.5-7.5) Ur Specific Tensed > 1.045 H (1.000-1.030) Urine Protein Trace H (Negative) Urine Glucose (UA) Negative (Negative) Urine Ketones 1+ H (Negative) Urine Blood 2+ H (Negative) Urine Nitrite Negative (Negative) Urine Bilirubin Negative (Negative) Urine Urobilinogen Negative (Negative) Ur Leukocyte Esterase Negative (Negative) Urine WBC (Auto) 5-10 H (0-5) /hpf Urine RBC (Auto) 0-4 (0-4) /hpf U Hyaline Cast (Auto) 5-10 H (0-5) /lpf U Epithel Cells (Auto) >30 H (0-5) /lpf Urine Bacteria (Auto) Negative (Negative) Urine Opiates Screen Pos H (Neg) Ur Methadone, Qual Neg (Neg) Urine Barbiturates Neg (Neg) Ur Phencyclidine (PCP) Neg (Neg) U Amphetamin/Meth Scrn Neg (Neg) MDMA (Ecstasy) Screen Neg (Neg) U Benzodiazepines Scrn Neg (Neg) Ur Cocaine Metabolite Neg (Neg) U Marijuana (THC) Screen Neg (Neg) Ethyl Alcohol mg/dL (0-3) mg/dl Administered Medications Lidocaine (Lidocaine 5% 1 Patch) 1 patch TD DAILY@2100 DENIS Stop: 03/25/21 20:59 Last Admin: 02/23/21 21:06 Dose: 1 patch Documented by: [id number] Discontinued Medications Gabapentin (Gabapentin 400 Mg Cap) 400 mg PO NOW STA Stop: 02/23/21 21:11 Last Admin: 02/23/21 21:40 Dose: 400 mg Documented by: [id number] Sodium Chloride (Nss) 500 mls @ 999 mls/hr IV .Q31M DENIS Stop: 02/23/21 17:00 Last Infusion: 02/23/21 17:25 Dose: 0 mls/hr Documented by: [id number] Admin: 02/23/21 16:36 Dose: 999 mls/hr Documented by: [id number] Thiamine HCl 100 mg/ Syringe 10 mls @ 2 mls/min IV NOW STA Stop: 02/23/21 20:44 Last Admin: 02/23/21 21:06 Dose: 2 mls/min Documented by: [id number] Lactated Ringer's (Lr) 1,000 mls @ 500 mls/hr IV .Q2H ONE Stop: 02/23/21 22:36 Last Infusion: 02/23/21 23:15 Dose: 0 mls/hr Documented by: [id number] Admin: 02/23/21 21:06 Dose: 500 mls/hr Documented by: [id number] Levetiracetam 2,000 mg/ Sodium (Chloride) 270 mls @ 999 mls/hr IV NOW STA Stop: 02/23/21 21:25 Last Infusion: 02/23/21 22:56 Dose: 0 mls/hr Documented by: [id number] Admin: 02/23/21 21:40 Dose: 999 mls/hr Documented by: [id number] Ketorolac Tromethamine (Ketorolac Tromethamine 15 Mg/Ml Vial) 15 mg IV NOW STA Stop: 02/23/21 21:25 Last Admin: 02/23/21 21:39 Dose: 15 mg Documented by: [id number] Morphine Sulfate (Morphine Sulfate 4 Mg/Ml 1 Ml Carp\Vial) 4 mg IV NOW STA Stop: 02/23/21 16:30 Last Admin: 02/23/21 16:36 Dose: 4 mg Documented by: [id number] Morphine Sulfate (Morphine Sulfate 4 Mg/Ml 1 Ml Carp\Vial) 4 mg IV NOW STA Stop: 02/23/21 18:59 Last Admin: 02/23/21 19:02 Dose: 4 mg Documented by: [id number] Imaging Data Radiologist's Impression: Abdomen/Pelvis CT 02/23/21 16:27 CT abd pelvis IV con only CLINICAL HISTORY: fall, back pain, eval for any trauma TECHNIQUE: Helical axial images of the abdomen and pelvis were obtained and displayed. Automated dose lowering techniques and/or adjustment according to patient size were utilized for this exam. This exam was performed with intravenous contrast. COMPARISON: Comparison is made to CT abdomen and pelvis 01/08/2021 FINDINGS: Lower chest: No acute abnormality Liver: Hepatic steatosis is noted. Hepatomegaly is seen. Gallbladder and biliary tree: Patient is status post cholecystectomy. Physiologic prominence of the biliary ducts is noted. Pancreas: Unremarkable, no focal lesions. Spleen: Unremarkable. Adrenals: Unremarkable. Kidneys and ureters: Unremarkable. Bladder: Unremarkable. Reproductive organs: Unremarkable. Bowel: A hiatal hernia is seen. Patient is status post gastrectomy with esophagojejunostomy. 1The appendix is unremarkable. Lymph nodes Retroperitoneal: Unremarkable. Mesenteric: Unremarkable. Pelvic: Unremarkable. Peritoneum: Normal Vessels: Atherosclerotic calcifications are seen. Abdominal wall: Unremarkable. Bones: Right total hip arthroplasty is seen. There is a posterior wedge deformity of L1 which is unchanged. IMPRESSION: 1. No acute abnormalities. No fractures are seen. 2. Hepatic steatosis. ACT 112: Negative or not required by law. Electronically signed by: Atilio Magana M.D. 02/23/2021 6:[address] 02/23/21 16:27 CT cervical spine wo con CLINICAL HISTORY: fall chest and neck pain. TECHNIQUE: Multidetector row helical CT of the cervical spine was performed without administration of intravenous contrast. Coronal and sagittal reformations were obtained. Automated dose lowering techniques and/or adjustment according to patient size were utilized for this exam. Comparison: Comparison is made to FINDINGS: No acute fractures or subluxations are identified. The alignment is normal. Endplate deformities are noted at C7 and T1. The prevertebral soft tissues are unremarkable. IMPRESSION: No evidence of acute injury. ACT 112: Negative or not required by law. Electronically signed by: Atilio Magana M.D. 02/23/2021 6:[address] 02/23/21 16:27 CT chest diagnostic w con CLINICAL HISTORY: fall, CP TECHNIQUE: Multidetector row helical CT of the chest was performed. Coronal and sagittal reformations were obtained. Automated dose lowering techniques and/or adjustment according to patient size were utilized for this exam. Comparison: Comparison is made to CT chest 06/22/2020 FINDINGS: Lungs and pleura: Bilateral atelectasis versus scarring is seen. Heart and pericardium: Heart size is normal. No pericardial effusion. Vessels: Moderate atherosclerotic changes in the aorta and coronary arteries. Mediastinum and liu: Unremarkable. Chest wall and lower neck: Unremarkable. Abdomen: For findings below the diaphragm, please refer to CT of the abdomen dated the same. Bones: Old healed fracture of the sternum. There is complete loss of height of the T4 vertebral body, new from prior exam. There is progression of loss of height in T11 and stable endplate deformity in T12. Bilateral healed rib fractures are seen. IMPRESSION: Multilevel compression deformities are increased from prior exam, but of uncertain chronicity. Correlation with point tenderness is recommended. ACT 112: Negative or not required by law. Electronically signed by: Atilio Magana M.D. 02/23/2021 6:[address] 02/23/21 16:27 CT head/brain wo con CLINICAL HISTORY: fall Technique: Contiguous axial CT images of the head were acquired from the base of the skull to the vertex without intravenous contrast administration. Images were viewed in brain, subdural and bone windows. Automated dose lowering techniques and/or adjustment according to patient size were utilized for this exam. Comparison: Comparison is made to CT head 01/08/2021 Findings: Areas of decreased attenuation are present in the periventricular and subcortical white matter bilaterally consistent with small vessel ischemic disease. Generalized cerebral atrophy with commensurate enlargement of the ventricles, sulci, and cisterns is also present. There is no acute intracranial hemorrhage or evidence of acute territorial infarction. No shift of the midline structures, mass effect, or extra-axial abnormalities are shown. Atherosclerotic calcifications are present in the intracranial segments of the internal carotid arteries. Imaged portions of the paranasal sinuses and mastoid air cells are clear. The orbits appear normal. There are no acute fractures of the calvaria or scalp swelling. Impression: No acute intracranial hemorrhage, skull fractures, or scalp swelling. ACT 112: Negative or not required by law. Electronically signed by: Atilio Magana M.D. 02/23/2021 6:33 PM Discharge Plan Visit Data Chief Complaint: Fall Stated Complaint: FALL, BACK, CHEST,HIP,SHOULDER & SPINE PAIN ED Provider: [facility] Discharge Problem: Compression fracture Patient Disposition: Admitted As Inpatient Discharge Instructions Interventions: ED Discharge Assessment Last Done: 02/23/21 22:58
[2021-02-23 16:45] LABS: Basophils # (auto) 0.02 K/uL (0-0.2); Basophils % (auto) 0.2 %; Hematocrit (blood only) 37.2 % (37-47); Hemoglobin 12.2 g/dL (12.0-16.0); Immature Granulocytes # (auto) 0.04 K/uL (0.00-0.02); Immature Granulocytes % (auto) 0.3 %; Lymphocytes # (auto) 1.58 K/uL (1.2-3.4); Mean Corpuscular Hemoglobin 28.1 pg (25-34); Mean Corpuscular Hgb Conc 32.8 g/dL (32-36); Mean Corpuscular Volume 85.7 fL (80-100); Mean Platelet Volume 9.8 fL (7.4-10.4); Monocytes # (auto) 0.02 K/uL (0.11-0.59); Monocytes % (auto) 0.2 %; Neutrophils # (auto) 10.47 K/uL (1.4-6.5); Neutrophils % (auto) 86.3 %; Platelet Count 481 K/uL (130-400); RDW Coefficient of Variation 18.6 % (11.5-14.5); RDW Standard Deviation 58.8 fL (36.4-46.3); Red Blood Count 4.34 M/uL (4.2-5.4); White Blood Count 12.13 K/uL (4.8-10.8)
[2021-02-23 16:53] LABS: Prothrombin Time 9.8 Seconds (9.0-12.0)
[2021-02-23 17:03] LABS: Alanine Aminotransferase 50 U/L (12-78); Albumin Level 3.2 gm/dl (3.4-5.0); Aspartate Aminotransferase 108 U/L (15-37); BUN Creatinine Ratio 9.9 (10-20); Blood Urea Nitrogen 6 mg/dl (7-18); Calcium 9.3 mg/dl (8.5-10.1); Carbon Dioxide 18 mmol/L (21-32); Chloride 107 mmol/L (98-107); Creatinine Clr Calc Pharmacy 106.9 ml/min; Est GFR (African American) 125.1 ml/min; Glucose 120 mg/dl (70-99); Potassium 4.2 mmol/L (3.5-5.1); Sodium 137 mmol/L (136-145)
[2021-02-23 17:05] LABS: Albumin Globulin Ratio 0.7 (0.9-2); Alkaline Phosphatase 167 U/L (45-117); Bilirubin,Total 0.6 mg/dl (0.2-1); Globulin 4.6 gm/dl (2.5-4.0); Total Protein 7.8 gm/dl (6.4-8.2)
--- NOTE | 2021-02-23 18:34 | CT Scan Report ---
CT cervical spine wo con CLINICAL HISTORY: fall chest and neck pain. TECHNIQUE: Multidetector row helical CT of the cervical spine was performed without administration of intravenous contrast. Coronal and sagittal reformations were obtained. Automated dose lowering techn iques and/or adjustment according to patient size were utilized for this exam. Comparison: Comparison is made to FINDINGS: No acute fractures or subluxations are identified. The alignment is normal. Endplate deformities are noted at C7 and T1. The prevertebral soft tissues are unremarkable. IMPRESSION: No evidence of acute injury. ACT 112: Negative or not required by law. Electronically signed by: Atilio Magana M.D. 02/23/2021 6:32 PM
--- NOTE | 2021-02-23 18:35 | CT Scan Report ---
CT head/brain wo con CLINICAL HISTORY: fall Technique: Contiguous axial CT images of the head were acquired from the base of the skull to the annemarie bautista without intravenous contrast administration. Images were viewed in brain, subdural and bone [facility]. Automated dose lowering techniques and/or adjustment according to patient size were utilized for this exam. Comparison: Comparison is made to CT head 01/08/2021 Findings: Areas of decreased attenuation are present in the periventricular and subcortical white matter bilate rally consistent with small vessel ischemic disease. Generalized cerebral atrophy with commensurate e nlargement of the ventricles, sulci, and cisterns is also present. There is no acute intracranial hem orrhage or evidence of acute territorial infarction. No shift of the midline structures, mass effect, or extra-axial abnormalities are shown. Atherosclerotic calcifications are present in the intracran ial segments of the internal carotid arteries. Imaged portions of the paranasal sinuses and mastoid air cells are clear. The orbits appear normal. There are no acute fractures of the calvaria or scalp swelling. Impression: No acute intracranial hemorrhage, skull fractures, or scalp swelling. ACT 112: Negative or not required by law. Electronically signed by: Atilio Magana M.D. 02/23/2021 6:33 PM
--- NOTE | 2021-02-23 18:38 | CT Scan Report ---
CT chest diagnostic w con CLINICAL HISTORY: fall, CP TECHNIQUE: Multidetector row helical CT of the chest was performed. Coronal and sagittal reformations were obtained. Automated dose lowering techniques and/or adjustment according to patient size were u tilized for this exam. Comparison: Comparison is made to CT chest 06/22/2020 FINDINGS: Lungs and pleura: Bilateral atelectasis versus scarring is seen. Heart and pericardium: Heart size is normal. No pericardial effusion. Vessels: Moderate atherosclerotic changes in the aorta and coronary arteries. Mediastinum and liu: Unremarkable. Chest wall and lower neck: Unremarkable. Abdomen: For findings below the diaphragm, please refer to CT of the abdomen dated the same. Bones: Old healed fracture of the sternum. There is complete loss of height of the T4 vertebral body, new from prior exam. There is progression of loss of height in T11 and stable endplate deformity in T12. Bilateral healed rib fractures are seen. IMPRESSION: Multilevel compression deformities are increased from prior exam, but of uncertain chronicity. Correl ation with point tenderness is recommended. ACT 112: Negative or not required by law. Electronically signed by: Atilio Magana M.D. 02/23/2021 6:36 PM
--- NOTE | 2021-02-23 18:41 | CT Scan Report ---
CT abd pelvis IV con only CLINICAL HISTORY: fall, back pain, eval for any trauma TECHNIQUE: Helical axial images of the abdomen and pelvis were obtained and displayed. Automated dose lowering techniques and/or adjustment according to patient size were utilized for this exam. This e xam was performed with intravenous contrast. COMPARISON: Comparison is made to CT abdomen and pelvis 01/08/2021 FINDINGS: Lower chest: No acute abnormality Liver: Hepatic steatosis is noted. Hepatomegaly is seen. Gallbladder and biliary tree: Patient is status post cholecystectomy. Physiologic prominence of the b iliary ducts is noted. Pancreas: Unremarkable, no focal lesions. Spleen: Unremarkable. Adrenals: Unremarkable. Kidneys and ureters: Unremarkable. Bladder: Unremarkable. Reproductive organs: Unremarkable. Bowel: A hiatal hernia is seen. Patient is status post gastrectomy with esophagojejunostomy. 1The rocío endix is unremarkable. Lymph nodes Retroperitoneal: Unremarkable. Mesenteric: Unremarkable. Pelvic: Unremarkable. Peritoneum: Normal Vessels: Atherosclerotic calcifications are seen. Abdominal wall: Unremarkable. Bones: Right total hip arthroplasty is seen. There is a posterior wedge deformity of L1 which is unch anged. IMPRESSION: 1. No acute abnormalities. No fractures are seen. 2. Hepatic steatosis. ACT 112: Negative or not required by law. Electronically signed by: Atilio Magana M.D. 02/23/2021 6:40 PM
[2021-02-23] MEDS ORDERED: LACTATED RINGER'S 1,000 ML IV ONE (20:37)
[2021-02-23] MEDS ORDERED: THIAMINE HCL 100 MG in SYRINGE 9 ML IV STA (20:40)
[2021-02-23] MEDS: LIDOCAINE 5% 1 PATCH TD SCH (21:06)
--- NOTE | 2021-02-23 21:08 | History & Physical Report ---
Date of Service February 23, 2021 Assessment & Plan (1) Breakthrough seizure: Plan: Secondary to medication non-compliance ? Alcohol withdrawal Back pain secondary to acute/subacute compression fracture secondary to recurrent falls PUD status post surgery hx von Willebrand's disease anxiety/mood disorder, at baseline Alcohol abuse history traumatic subdural/rectus sheath hematoma Hyperglycemia rule out DM OBS Medical telemetry IV Keppra load Facilitate home AED regimen Analgesia, Lidoderm patch trial PT OT eval KEAGAN S, DT precautions Check hemoglobin A1c DVT prophylaxis. SCDs Re: History subdural hematoma DNR Text document was generated using [employer] voice recognition software. It may contain grammatical or spelling errors. Kindly contact undersigned for clarification of any documentation item in question. History of Present Illness Chief Complaint: Fall, back pain Primary Care Provider: Jaspal Bae MD History obtained from patient and records. 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 Recent confinement last month for breakthrough seizures possibly from alcohol withdrawal. Patient stopped taking her seizure medications 2 weeks ago because it was causing her hair to fall out. Today, patient felt sweaty, similar to sensation that she gets when she is about to have a seizure. Her pet dog also went to her. Patient claims her pet dog is able to sense when she is about to have a seizure. Patient recalls going to the refrigerator to get a drink. She subsequently woke up on the floor feeling achy everywhere, more so her mid back going to her chest and her lower legs. Mid back pain worse with movement. No unusual leg weakness as per patient. No tongue biting, no incontinence. Patient thinks she may have had a seizure. Chipped tooth which she thinks she swallowed. Patient consumed some alcohol last night prior to event. Patient's neighbor had patient brought to the hospital. Medical History as above Surgical History : Right hip surgery, shoulder surgery, vascular procedure, cholecystectomy, partial gastrectomy, J-tube placement, hysterectomy, hand surgery Family History : Osteoporosis, von Willebrand's disease, breast cancer, heart disease, alcoholism Personal/Social history : Non-smoker, alcohol abuse as per records, disabled Allergies Allergy/AdvReac Type Severity Reaction Status Date / Time iron dextran complex Allergy Severe SOB, heart Verified 02/23/21 17:22 racing (see comments) cat dander Allergy Intermediate eye Verified 02/23/21 17:22 watering ceftriaxone Allergy Intermediate Hives Verified 02/23/21 17:22 ciprofloxacin Allergy Intermediate lips Verified 02/23/21 17:22 burning/peeling doxycycline Allergy Intermediate hives, Verified 02/23/21 17:22 vomiting latex Allergy Intermediate mouth Verified 02/23/21 17:22 hives/burning sensation Penicillins Allergy Intermediate Hives Verified 02/23/21 17:22 Quinolones Allergy Intermediate Hives Verified 02/23/21 17:22 Sulfa (Sulfonamide Allergy Intermediate hives Verified 02/23/21 17:22 Antibiotics) Aminoglycosides Allergy Unknown unknown Verified 02/23/21 17:22 reaction tobramycin AdvReac Severe blindness Verified 02/23/21 17:22 citalopram AdvReac Mild restlessnes Verified 02/23/21 17:22 s Ferric Oxide Allergy Intermediate hives (see Uncoded 02/23/21 17:22 comments) Home Medications Medication Instructions Recorded Confirmed Type pantoprazole 40 mg tablet,delayed 40 mg PO BID 01/29/18 02/23/21 History release (Protonix) levetiracetam 500 mg tablet 1,500 mg PO BID 07/07/18 02/23/21 History (Keppra) gabapentin 400 mg capsule 400 mg PO TID 11/18/18 02/23/21 History fexofenadine 180 mg tablet 180 mg PO DAILY 09/22/19 02/23/21 History (Maame Allergy) lorazepam 1 mg tablet 0.5 - 1 mg PO Q8H PRN 04/12/20 02/23/21 History sertraline 50 mg tablet 50 mg PO DAILY 07/07/20 02/23/21 History trazodone 50 mg tablet 50 mg PO HS 07/07/20 02/23/21 History cyclobenzaprine 10 mg tablet 10 mg PO TID PRN 09/01/20 02/23/21 History promethazine 25 mg tablet 25 mg PO Q8H PRN 09/01/20 02/23/21 History Past Med/Surg History Medical History (Updated 02/24/21 @ 05:15 by Joby Gorman MD) Anemia hx of blood transfusion (post-operatively 10/2018) Anxiety 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 Lanza Surgical History H/O foot surgery RT HEEL SURGERY X 2 (HARDWARE INTACT) TOE CORRECTION X 3 (PINS INTACT ON RT FOOT) H/O shoulder surgery RT HUMERUS FX REPAIRED (HARDWARE INTACT) H/O wisdom tooth extraction H/O wrist surgery LEFT WRIST X 2 SURGERIES History of cholecystectomy History of colonoscopy History of esophagogastroduodenoscopy (EGD) History of gastrectomy secondary to PUD (OVER 10 YEARS AGO) History of hand surgery LEFT HAND FINGER REPAIR History of hysterectomy History of vascular access device MEDIPORT INTACT Family History Father Diabetes Mother Von Willebrand disease Grandmother (Paternal) Family hx of colon cancer Social History Smoking Status: Never smoker Second Hand Exposure: No; Hx Alcohol Use: Yes Alcohol type: wine Hx Substance Use: No Preferred Language: Telugu Communication Ability: Effective Museum Specialist Required: No Beliefs That Will Affect Care: None marital status: Legally Current Living Situation: Alone Current Living Situation Comment: neighbors help occasionally current occupational status: disabled How many Children do You have: 2 Other Information That Helps Us Care for You: No Feels Safe at Home: Yes Assistive Devices: Cane Review of Systems Review of Systems: As per HPI, all 10 systems reviewed, all other ROS negative Physical Exam Physical Exam: GENERAL: uncomfortable, no respiratory distress SKIN: Normal color, warm HEENT: [place] palpebral conjunctivae, no ptosis, dry buccal mucosa NECK : Supple, no tenderness CHEST : Decreased breath sounds , anterior chest wall tenderness HEART : Tachycardic , no obvious murmurs BACK ; mid back tenderness with limited leg raise bilateral ABDOMEN: no distention, no tenderness EXTREMITIES : No LE swelling, no LE swelling, right hip tenderness, no other conspicuous deformities noted NEUROLOGIC : Coherent, no facial asymmetry, no other gross focality Results & Data Results & Data ([facility]) Vital Signs (Past 12 Hours) Vital Signs Temp Pulse Pulse Resp BP BP Pulse Ox 02/23/21 20:10 110 H 20 126/96 97 02/23/21 19:39 111 H 20 146/98 H 94 02/23/21 19:00 116 H 20 143/106 H 98 02/23/21 18:51 109 H 20 141/98 H 98 02/23/21 18:39 112 H 20 141/98 H 98 02/23/21 17:31 113 H 20 142/92 H 95 02/23/21 16:40 119 H 24 97 02/23/21 16:26 114 H 20 158/105 H 98 02/23/21 15:36 37.3 C 119 H 20 153/104 H 99 Laboratory Results Laboratory Results WBC 12.13 K/uL (4.8-10.8) H 02/23/21 16:32 RBC 4.34 M/uL (4.2-5.4) 02/23/21 16:32 Hgb 12.2 g/dL (12.0-16.0) 02/23/21 16:32 Hct 37.2 % (37-47) 02/23/21 16:32 MCV 85.7 fL (80-100) 02/23/21 16:32 MCH 28.1 pg (25-34) 02/23/21 16:32 MCHC 32.8 g/dL (32-36) 02/23/21 16:32 RDW Std Deviation 58.8 fL (36.4-46.3) H 02/23/21 16:32 RDW Coeff of Lisa 18.6 % (11.5-14.5) H 02/23/21 16:32 Plt Count 481 K/uL (130-400) H 02/23/21 16:32 MPV 9.8 fL (7.4-10.4) 02/23/21 16:32 Immature Gran % (Auto) 0.3 % 02/23/21 16:32 Neut % (Auto) 86.3 % 02/23/21 16:32 Lymph % (Auto) 13.0 % 02/23/21 16:32 [place] % (Auto) 0.2 % 02/23/21 16:32 Eos % (Auto) 0.0 % 02/23/21 16:32 Baso % (Auto) 0.2 % 02/23/21 16:32 Neut # (Auto) 10.47 K/uL (1.4-6.5) H 02/23/21 16:32 Lymph # (Auto) 1.58 K/uL (1.2-3.4) 02/23/21 16:32 [place] # (Auto) 0.02 K/uL (0.11-0.59) L 02/23/21 16:32 Eos # (Auto) 0.00 K/uL (0-0.5) 02/23/21 16:32 Baso # (Auto) 0.02 K/uL (0-0.2) 02/23/21 16:32 Immature Gran # (Auto) 0.04 K/uL (0.00-0.02) H 02/23/21 16:32 PT 9.8 Seconds (9.0-12.0) 02/23/21 16:32 INR 1.0 (0.9-1.1) 02/23/21 16:32 Sodium 137 mmol/L (136-145) 02/23/21 16:32 Potassium 4.2 mmol/L (3.5-5.1) 02/23/21 16:32 Chloride 107 mmol/L (98-107) 02/23/21 16:32 Carbon Dioxide 18 mmol/L (21-32) L 02/23/21 16:32 Anion Gap 12.0 (3-11) H 02/23/21 16:32 BUN 6 mg/dl (7-18) L 02/23/21 16:32 Creatinine 0.56 mg/dl (0.6-1.2) L 02/23/21 16:32 Est Cr Clr Drug Dosing 106.9 ml/min 02/23/21 16:32 Est GFR ( Amer) 125.1 ml/min 02/23/21 16:32 Est GFR (Non-Af Amer) 108.0 ml/min 02/23/21 16:32 BUN/Creatinine Ratio 9.9 (10-20) L 02/23/21 16:32 Glucose 120 mg/dl (70-99) H 02/23/21 16:32 Calcium 9.3 mg/dl (8.5-10.1) 02/23/21 16:32 Total Bilirubin 0.6 mg/dl (0.2-1) 02/23/21 16:32 AST 108 U/L (15-37) H 02/23/21 16:32 ALT 50 U/L (12-78) 02/23/21 16:32 Alkaline Phosphatase 167 U/L (45-117) H 02/23/21 16:32 Total Protein 7.8 gm/dl (6.4-8.2) 02/23/21 16:32 Albumin 3.2 gm/dl (3.4-5.0) L 02/23/21 16:32 Globulin 4.6 gm/dl (2.5-4.0) H 02/23/21 16:32 Albumin/Globulin Ratio 0.7 (0.9-2) L 02/23/21 16:32 Ethyl Alcohol mg/dL < 3.0 mg/dl (0-3) 02/23/21 16:32 Impressions Abdomen/Pelvis CT 02/23/21 16:27 CT abd pelvis IV con only CLINICAL HISTORY: fall, back pain, eval for any trauma TECHNIQUE: Helical axial images of the abdomen and pelvis were obtained and displayed. Automated dose lowering techniques and/or adjustment according to patient size were utilized for this exam. This exam was performed with intravenous contrast. COMPARISON: Comparison is made to CT abdomen and pelvis 01/08/2021 FINDINGS: Lower chest: No acute abnormality Liver: Hepatic steatosis is noted. Hepatomegaly is seen. Gallbladder and biliary tree: Patient is status post cholecystectomy. Physiologic prominence of the biliary ducts is noted. Pancreas: Unremarkable, no focal lesions. Spleen: Unremarkable. Adrenals: Unremarkable. Kidneys and ureters: Unremarkable. Bladder: Unremarkable. Reproductive organs: Unremarkable. Bowel: A hiatal hernia is seen. Patient is status post gastrectomy with esophagojejunostomy. 1The appendix is unremarkable. Lymph nodes Retroperitoneal: Unremarkable. Mesenteric: Unremarkable. Pelvic: Unremarkable. Peritoneum: Normal Vessels: Atherosclerotic calcifications are seen. Abdominal wall: Unremarkable. Bones: Right total hip arthroplasty is seen. There is a posterior wedge deformity of L1 which is unchanged. IMPRESSION: 1. No acute abnormalities. No fractures are seen. 2. Hepatic steatosis. ACT 112: Negative or not required by law. Electronically signed by: Atilio Magana M.D. 02/23/2021 6:[address] 02/23/21 16:27 CT cervical spine wo con CLINICAL HISTORY: fall chest and neck pain. TECHNIQUE: Multidetector row helical CT of the cervical spine was performed without administration of intravenous contrast. Coronal and sagittal reformations were obtained. Automated dose lowering techniques and/or adjustment according to patient size were utilized for this exam. Comparison: Comparison is made to FINDINGS: No acute fractures or subluxations are identified. The alignment is normal. Endplate deformities are noted at C7 and T1. The prevertebral soft tissues are unremarkable. IMPRESSION: No evidence of acute injury. ACT 112: Negative or not required by law. Electronically signed by: Atilio Magana M.D. 02/23/2021 6:[address] 02/23/21 16:27 CT chest diagnostic w con CLINICAL HISTORY: fall, CP TECHNIQUE: Multidetector row helical CT of the chest was performed. Coronal and sagittal reformations were obtained. Automated dose lowering techniques and/or adjustment according to patient size were utilized for this exam. Comparison: Comparison is made to CT chest 06/22/2020 FINDINGS: Lungs and pleura: Bilateral atelectasis versus scarring is seen. Heart and pericardium: Heart size is normal. No pericardial effusion. Vessels: Moderate atherosclerotic changes in the aorta and coronary arteries. Mediastinum and liu: Unremarkable. Chest wall and lower neck: Unremarkable. Abdomen: For findings below the diaphragm, please refer to CT of the abdomen dated the same. Bones: Old healed fracture of the sternum. There is complete loss of height of the T4 vertebral body, new from prior exam. There is progression of loss of height in T11 and stable endplate deformity in T12. Bilateral healed rib fractures are seen. IMPRESSION: Multilevel compression deformities are increased from prior exam, but of uncertain chronicity. Correlation with point tenderness is recommended. ACT 112: Negative or not required by law. Electronically signed by: Atilio Magana M.D. 02/23/2021 6:[address] 02/23/21 16:27 CT head/brain wo con CLINICAL HISTORY: fall Technique: Contiguous axial CT images of the head were acquired from the base of the skull to the vertex without intravenous contrast administration. Images were viewed in brain, subdural and bone windows. Automated dose lowering techniques and/or adjustment according to patient size were utilized for this exam. Comparison: Comparison is made to CT head 01/08/2021 Findings: Areas of decreased attenuation are present in the periventricular and subcortical white matter bilaterally consistent with small vessel ischemic disease. Generalized cerebral atrophy with commensurate enlargement of the ventricles, sulci, and cisterns is also present. There is no acute intracranial hemorrhage or evidence of acute territorial infarction. No shift of the midline structures, mass effect, or extra-axial abnormalities are shown. Atherosclerotic calcifications are present in the intracranial segments of the internal carotid arteries. Imaged portions of the paranasal sinuses and mastoid air cells are clear. The orbits appear normal. There are no acute fractures of the calvaria or scalp swelling. Impression: No acute intracranial hemorrhage, skull fractures, or scalp swelling. ACT 112: Negative or not required by law. Electronically signed by: Atilio Magana M.D. 02/23/2021 6:33 PM Diagnostic Findings EKG as per my interpretation: Rate 115, sinus tachycardia, normal axis, T wave flattening inferior leads, low voltage
[2021-02-23 21:09] LABS: Creatine Kinase 55 U/L (26-192); Magnesium 1.9 mg/dl (1.8-2.4)
[2021-02-23] MEDS ORDERED: GABAPENTIN 400 MG CAP PO STA (21:10)
[2021-02-23] MEDS ORDERED: LORazepam 1 MG/2 ML VIAL IV PRN ×2 (21:14→23:45)
[2021-02-23] MEDS ORDERED: KETOROLAC TROMETHAMINE 15 MG/ML VIAL IV STA (21:24)
[2021-02-23 21:30] LABS: Lipase 39 U/L (73-393)
[2021-02-23 21:39] LABS: Appearance Urine Clear (Clear); Bacteria Urine Automated Negative (Negative); Bilirubin Urine Negative (Negative); Blood Urine 2+ (Negative); Color Urine Yellow; Epithelial Cell Urine Auto >30 /lpf (0-5); Glucose Urine UA Negative (Negative); Ketones Urine 1+ (Negative); Leukocyte Esterase Urine Negative (Negative); Nitrite Urine Negative (Negative); Protein Urine Trace (Negative); Specific Gravity Urine > 1.045 (1.000-1.030); Urobilinogen Urine Negative (Negative)
[2021-02-23 21:46] LABS: RBC Urine Automated 0-4 /hpf (0-4)
[2021-02-23 21:48] LABS: Amphetamines+Metham, Urine Neg (Neg); Barbiturates, Urine Neg (Neg); Benzodiazepine, Urine Neg (Neg); Cocaine, Urine Neg (Neg); MDMA (Ecstacy), Urine Neg (Neg); Methadone, Urine Neg (Neg); Opiate, Urine Pos (Neg); Phencyclidine, Urine Neg (Neg)
--- NOTE | 2021-02-23 22:58 | Magnetic Resonance Report ---
MR thoracic spine wo con CLINICAL HISTORY: midback pain TECHNIQUE: 3 plane localizer images, axial T2, axial T1, sagittal T2, sagittal T1 and sagittal STIR s equences through the thoracic spine were obtained, without intravenous contrast. Comparison: Comparison is made to MRI thoracic spine 07/21/[address] abdomen pelvis 02/23/2021 FINDINGS: Severe wedge deformity of T4 vertebral body demonstrates marrow edema co. T11 wedge deformity is agai n noted without bony edema. Partial visualization of L1 compression deformity, also without edema. IMPRESSION: Marrow edema at the progressed wedge deformity of the T4 vertebral body, compatible with acute subacu te chronicity. Remaining compression deformities are chronic. ACT 112: Negative or not required by law. Electronically signed by: Atilio Magana M.D. 02/23/2021 10:56 PM
[2021-02-23] MEDS ORDERED: ATIVAN IV ALCOHOL WITHDRAWL IV PRN (23:45)
[2021-02-23] MEDS ORDERED: LORazepam 2 MG/4 ML VIAL IV PRN (23:45)
[2021-02-23] MEDS ORDERED: ACETAMINOPHEN 325 MG TAB PO PRN (23:45)
[2021-02-23] MEDS ORDERED: CYCLOBENZAPRINE HCL 10 MG TAB PO PRN (23:45)
[2021-02-23] MEDS ORDERED: LORazepam 3 MG/6 ML VIAL IV PRN (23:45)
[2021-02-24] MEDS: oxyCODONE HCL IR 5 MG TAB (IMMEDIATE RELEASE) PO PRN ×3 (00:07→11:59)
[2021-02-24 00:16] LABS: Troponin I < 0.015 ng/ml (0-0.045)
[2021-02-24] MEDS: THIAMINE HCL 100 MG TAB PO SCH ×2 (00:43→07:51)
[2021-02-24] MEDS: PROMETHAZINE HCL 12.5 MG in SODIUM CHLORIDE 0.9% 50 ML IV PRN ×3 (00:43→20:17)
[2021-02-24] MEDS: FOLIC ACID 1 MG TAB PO SCH ×2 (00:43→07:51)
[2021-02-24] MEDS: KETOROLAC TROMETHAMINE 15 MG/ML VIAL IV PRN ×4 (00:43→20:59)
[2021-02-24] MEDS: LORazepam 0.5 MG TAB PO PRN ×3 (00:43→16:03)
[2021-02-24] MEDS ORDERED: SODIUM CHLORIDE 0.9% 1000ML 1,000 ML IV ONE (01:18)
[2021-02-24] MEDS: MULTIVITAMIN TAB PO SCH (07:51)
[2021-02-24] MEDS: SERTRALINE HCL 50 MG TABLET PO SCH (07:51)
[2021-02-24] MEDS: PANTOprazole 40 MG TAB PO SCH ×2 (07:51→20:57)
[2021-02-24] MEDS: levETIRAcetam 500 MG TAB PO SCH ×2 (07:51→20:57)
[2021-02-24] MEDS: FEXOFENADINE HCL 180 MG TAB PO SCH (07:51)
[2021-02-24] MEDS: GABAPENTIN 400 MG CAP PO SCH ×3 (07:52→20:57)
[2021-02-24 08:16] LABS: Basophils # (auto) 0.02 K/uL (0-0.2); Basophils % (auto) 0.4 %; Eosinophils # (auto) 0.11 K/uL (0-0.5); Eosinophils % (auto) 2.3 %; Hematocrit (blood only) 33.7 % (37-47); Hemoglobin 10.6 g/dL (12.0-16.0); Immature Granulocytes # (auto) 0.01 K/uL (0.00-0.02); Immature Granulocytes % (auto) 0.2 %; Lymphocytes # (auto) 0.81 K/uL (1.2-3.4); Mean Corpuscular Hemoglobin 27.9 pg (25-34); Mean Corpuscular Hgb Conc 31.5 g/dL (32-36); Mean Corpuscular Volume 88.7 fL (80-100); Mean Platelet Volume 9.8 fL (7.4-10.4); Monocytes # (auto) 0.35 K/uL (0.11-0.59); Monocytes % (auto) 7.4 %; Neutrophils # (auto) 3.46 K/uL (1.4-6.5); Neutrophils % (auto) 72.7 %; Platelet Count 327 K/uL (130-400); RDW Coefficient of Variation 18.8 % (11.5-14.5); RDW Standard Deviation 60.3 fL (36.4-46.3); White Blood Count 4.76 K/uL (4.8-10.8)
[2021-02-24 08:46] LABS: Albumin Level 2.3 gm/dl (3.4-5.0); BUN Creatinine Ratio 14.7 (10-20); Calcium 8.5 mg/dl (8.5-10.1); Creatinine Clr Calc Pharmacy 130.2 ml/min; Est GFR (African American) 133.5 ml/min; Est GFR (Non-African American) 115.2 ml/min; Potassium 3.7 mmol/L (3.5-5.1)
[2021-02-24 09:08] LABS: Albumin Globulin Ratio 0.6 (0.9-2); Bilirubin,Total 0.8 mg/dl (0.2-1); Globulin 3.6 gm/dl (2.5-4.0); Total Protein 5.9 gm/dl (6.4-8.2)
--- NOTE | 2021-02-24 14:00 | Electrocardiogram Report ---
Test Reason : Blood Pressure : / mmHG Vent. Rate : 116 BPM Atrial Rate : 116 BPM P-R Int : 128 ms QRS Dur : 062 ms QT Int : 336 ms P-R-T Axes : 004 029 -09 degrees QTc Int : 467 ms Poor data quality, interpretation may be adversely affected Sinus tachycardia Otherwise normal ECG When compared with ECG of 09-JAN-2021 03:58, T wave inversion now evident in Inferior leads Confirmed by Erickson Hopson ([id number]) on 02/24/2021 2:00:30 PM Referred By: Confirmed By:Erickson Hopson
[2021-02-24] MEDS: LIDOCAINE 5% 1 PATCH TD SCH (15:34)
--- NOTE | 2021-02-24 19:02 | Hospitalist Progress Note ---
Date of Service February 24, 2021 Assessment & Plan (1) Breakthrough seizure: Plan: 50-year-old female with history of seizure disorder, alcoholism, depression anxiety, von Willebrand disease, history of subdural hematoma and rectus sheath hematoma Presenting with possible seizures episodes at home due to non compliant with seizure med that she stopped taking for about 2 weeks BREAKTHROUGH SEIZURES HISTORY OF SEIZURE DISORDER Mostly from medication non adherence CT head showed no acute intracranial finding Received IV Keppra in the ER Home dose keppra 1500mg BID resume No driving for 6 months from last seizure date, no heights, no bathing or swimming alone emphasized strongly to patient re: medication adherence and she verbalized understanding and agreement follow up with neurology Caitlin Christianson [facility] outpatient after discharge Seizure precaution ALCOHOL ABUSE Patient admits last drink 1 day ago She said that she only drinks 1 glass last night Alcohol level normal Continue gabapentin 400 mg 3 times daily Continue Ativan as needed for alcohol withdrawal symptoms Continue monitor for sign of alcohol withdrawal Counseling on alcohol cessation Continue thiamine and folic acid Transaminitis Liver enzyme elevated with AST 227 and ALT 79 Mostly due to alcohol hepatitis CT abdomen and pelvis showed no acute abnormalities. Hepatic steatosis. Will avoid hepatotoxic agent Continue monitor LFTs During last admission gastro arrange for outpatient EUS g Fall Possible related to seizure Thoracic MRI spine showed marrow edema at the progressed wedge deformity of the T4 vertebral body, compatible with acute subacute chronicity. Remaining compression deformities are chronic. Continue Toradol as needed for pain Continue PT/ OT eval Fall precaution History of depression anxiety patient reports she takes Trazodone, Zoloft daily also takes Ativan 1mg TID PRN with Phenergan for nausea Von Willebrand disease Monitor for bleeding History of subdural hematoma and rectus sheath hematoma DVT prophylaxis- SCDs for now given seizures and history subdural hematoma and VWB Text document was generated using [employer] voice recognition software. It may contain grammatical or spelling errors. Kindly contact undersigned for clarification of any documentation item in question. Admission and Anticipated Discharge Date Admission Date: February 23, 2021 Subjective Patient was seen and examined for follow-up of seizure Lying in bed with no acute distress Patient said he stopped taking his seizure med for 2 weeks due to hair loss During last admission I explained to the patient that she needs to be very compliant with her seizure medication She understood that if she does not take the seizure med that can lead to fall and bleeding in the brain She also knows that she not supposed to drink any alcohol but she drank 1 glass of alcohol drink yesterday She continued to refuse any placement even after she does poor with therapy Denies any chest pain, palpitation, dizziness, and fever Review of Systems Review of Systems: All systems reviewed & are unremarkable except as noted in Subjective Physical Exam Physical Exam: General- No acute distress Head- atraumatic Eyes- PERRL, EOMI, ENT- oropharynx clear Neck- supple, no JVD Lungs- clear to auscultation Heart- regular rhythm; no murmur Abdomen- normal bowel sounds, soft, nontender Extremities- no calf tenderness Neuro- alert, oriented x 3; PERRL, EOMI; no facial palsy; no dysarthria Skin- warm & dry Results & Data Results & Data ([facility]) Vital Signs (Past 12 Hours) Vital Signs Temp Pulse Pulse Resp BP BP Pulse Ox 02/24/21 18:25 36.5 C 88 134/93 96 02/24/21 15:24 96 H 17 134/86 97 02/24/21 14:52 105 H 02/24/21 11:01 36.7 C 105 H 112/73 02/24/21 08:51 97 H 02/24/21 07:22 36.7 C 90 109/74 92
[2021-02-24] MEDS: traZODone HCL 50 MG TAB PO SCH (20:57)
[2021-02-25] MEDS: KETOROLAC TROMETHAMINE 15 MG/ML VIAL IV PRN ×2 (03:39→11:57)
[2021-02-25] MEDS: oxyCODONE HCL IR 5 MG TAB (IMMEDIATE RELEASE) PO PRN ×3 (05:14→20:57)
[2021-02-25] MEDS: LORazepam 0.5 MG TAB PO PRN ×2 (05:14→13:10)
[2021-02-25] MEDS: PROMETHAZINE HCL 12.5 MG in SODIUM CHLORIDE 0.9% 50 ML IV PRN ×2 (05:49→17:52)
[2021-02-25] MEDS: MULTIVITAMIN TAB PO SCH (07:52)
[2021-02-25] MEDS: PANTOprazole 40 MG TAB PO SCH ×2 (07:52→20:56)
[2021-02-25] MEDS: FEXOFENADINE HCL 180 MG TAB PO SCH (07:52)
[2021-02-25] MEDS: GABAPENTIN 400 MG CAP PO SCH ×3 (07:52→20:56)
[2021-02-25] MEDS: levETIRAcetam 500 MG TAB PO SCH (07:52)
[2021-02-25] MEDS: FOLIC ACID 1 MG TAB PO SCH (07:52)
[2021-02-25] MEDS: THIAMINE HCL 100 MG TAB PO SCH (07:52)
[2021-02-25] MEDS: SERTRALINE HCL 50 MG TABLET PO SCH (07:53)
[2021-02-25 08:59] LABS: Albumin Level 2.3 gm/dl (3.4-5.0); BUN Creatinine Ratio 9.8 (10-20); Calcium 8.4 mg/dl (8.5-10.1); Creatinine Clr Calc Pharmacy 133.1 ml/min; Est GFR (African American) 134.5 ml/min; Potassium 3.7 mmol/L (3.5-5.1)
[2021-02-25 09:02] LABS: Albumin Globulin Ratio 0.6 (0.9-2); Bilirubin,Total 0.7 mg/dl (0.2-1); Globulin 3.7 gm/dl (2.5-4.0)
[2021-02-25] MEDS ORDERED: LACOSAMIDE 50 MG TABLET PO ONE (14:29)
[2021-02-25] MEDS: LIDOCAINE 5% 1 PATCH TD SCH (16:28)
[2021-02-25] MEDS ORDERED: cloNIDine HCL 0.1 MG TAB PO ONE (19:36)
[2021-02-25] MEDS: traZODone HCL 50 MG TAB PO SCH (20:56)
[2021-02-25] MEDS ORDERED: LACOSAMIDE 50 MG TABLET PO SCH (21:00)
--- NOTE | 2021-02-25 23:56 | Hospitalist Progress Note ---
Date of Service February 25, 2021 Assessment & Plan (1) Breakthrough seizure: Plan: 50-year-old female with history of seizure disorder, alcoholism, depression anxiety, von Willebrand disease, history of subdural hematoma and rectus sheath hematoma Presenting with possible seizures episodes at home due to non compliant with seizure med that she stopped taking for about 2 weeks BREAKTHROUGH SEIZURES HISTORY OF SEIZURE DISORDER Mostly from medication non adherence CT head showed no acute intracranial finding Received IV Keppra in the ER, then resumed keppra 1500mg BID Patient most likely will stop taking the Keppra DVT side effect of hair loss, will consider to transition to different seizure medication I spoke to neurology Dr. Chicas over the phone that recommended to transition to Vimpat Will start on Vimpat 50 mg p.o. twice daily for 1 week then increase to 100 mg twice daily the following week We will give a loading dose 200 mg of Vimpat to start We will monitor EKG for QT prolongation Major side effect about Vimpat discussed with patient that she has nausea/diarrhea, dizziness, drowsiness, headache, fatigue, blurry vision, normal liver enzyme. follow up with neurology Caitlin Christianson [facility] outpatient after discharge No driving for 6 months from last seizure date, no heights, no bathing or swimming alone emphasized strongly to patient re: medication adherence and she verbalized understanding and agreement Seizure precaution ALCOHOL ABUSE Patient admits last drink 1 day ago She said that she only drinks 1 glass last night Alcohol level normal Continue gabapentin 400 mg 3 times daily Continue Ativan as needed for alcohol withdrawal symptoms Continue monitor for sign of alcohol withdrawal Counseling on alcohol cessation Continue thiamine and folic acid Transaminitis Liver enzyme elevated with AST 227 and ALT 79 Mostly due to alcohol hepatitis CT abdomen and pelvis showed no acute abnormalities. Hepatic steatosis. Will avoid hepatotoxic agent Continue monitor LFTs During last admission gastro arrange for outpatient EUS Fall Possible related to seizure Thoracic MRI spine showed marrow edema at the progressed wedge deformity of the T4 vertebral body, compatible with acute subacute chronicity. Remaining compression deformities are chronic. Continue Toradol as needed for pain Continue PT/ OT eval Refused to go to rehab Fall precaution History of depression anxiety patient reports she takes Trazodone, Zoloft daily also takes Ativan 1mg TID PRN with Phenergan for nausea Von Willebrand disease Monitor for bleeding History of subdural hematoma and rectus sheath hematoma DVT prophylaxis- SCDs for now given seizures and history subdural hematoma and VWB Text document was generated using iMER voice recognition software. It may contain grammatical or spelling errors. Kindly contact undersigned for clarification of any documentation item in question. Admission and Anticipated Discharge Date Admission Date: February 23, 2021 Subjective Patient was seen and examined for follow-up of seizure Lying in bed with no acute distress Patient said that she feels okay Patient said he stopped taking his seizure med for 2 weeks due to hair loss One of the side effects of Keppra is hair loss I spoke to neurology Dr. Chicas over the phone that recommended to transition to Vimpat Will start on Vimpat 50 mg p.o. twice daily for 1 week then increase to 100 mg twice daily the following week We will give a loading dose 200 mg of Vimpat to start We will monitor EKG for QT prolongation Major side effect about Vimpat discussed with patient that she has nausea/diarrhea, dizziness, drowsiness, headache, fatigue, blurry vision, normal liver enzyme. Patient agreed to transition to Vimpat and discontinue Keppra She continued to refuse any placement even after she does poor with therapy Denies any chest pain, palpitation, dizziness, and fever Review of Systems Review of Systems: All systems reviewed & are unremarkable except as noted in Subjective Physical Exam Physical Exam: General- No acute distress Head- atraumatic Eyes- PERRL, EOMI, ENT- oropharynx clear Neck- supple, no JVD Lungs- clear to auscultation Heart- regular rhythm; no murmur Abdomen- normal bowel sounds, soft, nontender Extremities- no calf tenderness Neuro- alert, oriented x 3; PERRL, EOMI; no facial palsy; no dysarthria Skin- warm & dry Results & Data Results & Data ([facility]) Vital Signs (Past 12 Hours) Vital Signs Temp Pulse Pulse Resp BP Pulse Ox 02/25/21 23:01 37 C 96 H 18 113/80 93 02/25/21 19:17 36.5 C 80 18 161/106 H 98 02/25/21 15:06 95 H 02/25/21 14:36 36.6 C 79 20 145/103 H 97 02/25/21 12:18 36.6 C 76 18 150/105 H 97
[2021-02-26] MEDS ORDERED: LACOSAMIDE 50 MG TABLET PO ONE
[2021-02-26] MEDS: oxyCODONE HCL IR 5 MG TAB (IMMEDIATE RELEASE) PO PRN ×2 (01:05→07:54)
[2021-02-26] MEDS: LORazepam 0.5 MG TAB PO PRN ×2 (01:05→09:40)
[2021-02-26] MEDS: KETOROLAC TROMETHAMINE 15 MG/ML VIAL IV PRN ×2 (02:51→10:44)
[2021-02-26 06:40] LABS: Hematocrit (blood only) 32.8 % (37-47); Hemoglobin 10.2 g/dL (12.0-16.0); Mean Corpuscular Hemoglobin 27.6 pg (25-34); Mean Corpuscular Hgb Conc 31.1 g/dL (32-36); Mean Corpuscular Volume 88.9 fL (80-100); Mean Platelet Volume 10.1 fL (7.4-10.4); Platelet Count 402 K/uL (130-400); RDW Coefficient of Variation 18.3 % (11.5-14.5); RDW Standard Deviation 60.4 fL (36.4-46.3); Red Blood Count 3.69 M/uL (4.2-5.4); White Blood Count 5.84 K/uL (4.8-10.8)
[2021-02-26 07:17] LABS: Albumin Level 2.2 gm/dl (3.4-5.0); BUN Creatinine Ratio 8.7 (10-20); Calcium 8.4 mg/dl (8.5-10.1); Creatinine Clr Calc Pharmacy 136.1 ml/min; Est GFR (African American) 135.5 ml/min; Est GFR (Non-African American) 116.9 ml/min; Potassium 3.4 mmol/L (3.5-5.1)
[2021-02-26 07:19] LABS: Albumin Globulin Ratio 0.6 (0.9-2); Bilirubin,Total 0.6 mg/dl (0.2-1); Globulin 3.5 gm/dl (2.5-4.0); Total Protein 5.7 gm/dl (6.4-8.2)
[2021-02-26] MEDS: FOLIC ACID 1 MG TAB PO SCH (07:54)
[2021-02-26] MEDS: PROMETHAZINE HCL 12.5 MG in SODIUM CHLORIDE 0.9% 50 ML IV PRN (07:54)
[2021-02-26] MEDS: SERTRALINE HCL 50 MG TABLET PO SCH (07:55)
[2021-02-26] MEDS: FEXOFENADINE HCL 180 MG TAB PO SCH (07:55)
[2021-02-26] MEDS: GABAPENTIN 400 MG CAP PO SCH (07:55)
[2021-02-26] MEDS: MULTIVITAMIN TAB PO SCH (07:55)
[2021-02-26] MEDS: PANTOprazole 40 MG TAB PO SCH (07:55)
[2021-02-26] MEDS: THIAMINE HCL 100 MG TAB PO SCH (07:55)
[2021-02-26] MEDS ORDERED: LACOSAMIDE 50 MG TABLET PO SCH (09:00)
[2021-02-26] MEDS ORDERED: POTASSIUM CHLORIDE 10 MEQ TABCR PO STA (09:22)
[2021-02-26 10:51] LABS: Codeine Urine NEGATIVE ng/mL (<50); Hydrocodone Urine NEGATIVE ng/mL (<50); Hydromor Urine NEGATIVE ng/mL (<50); Morphine Urine 6590 ng/mL (<50); Norhydrocodone Conf Ur NEGATIVE ng/mL (<50); Noroxycodone Urine NEGATIVE ng/mL (<50); Oxycodone Urine NEGATIVE ng/mL (<50); Oxymorph Urine NEGATIVE ng/mL (<50)
--- NOTE | 2021-02-27 04:59 | Electrocardiogram Report ---
Test Reason : Blood Pressure : / mmHG Vent. Rate : 079 BPM Atrial Rate : 079 BPM P-R Int : 144 ms QRS Dur : 070 ms QT Int : 406 ms P-R-T Axes : 030 012 052 degrees QTc Int : 465 ms Normal sinus rhythm Low voltage QRS Borderline ECG When compared with ECG of 23-FEB-2021 15:23, No significant change Confirmed by Agus Rider ([id number]) on 02/27/2021 4:59:02 AM Referred By: REFERRED SELF Confirmed By:Agus Rider
--- NOTE | 2021-03-13 10:26 | Discharge Summary ---
Date of Service February 26, 2021 Admission HPI Per Admitting Provider History obtained from patient and records. 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 Recent confinement last month for breakthrough seizures possibly from alcohol withdrawal. Patient stopped taking her seizure medications 2 weeks ago because it was causing her hair to fall out. Today, patient felt sweaty, similar to sensation that she gets when she is about to have a seizure. Her pet dog also went to her. Patient claims her pet dog is able to sense when she is about to have a seizure. Patient recalls going to the refrigerator to get a drink. She subsequently woke up on the floor feeling achy everywhere, more so her mid back going to her chest and her lower legs. Mid back pain worse with movement. No unusual leg weakness as per patient. No tongue biting, no incontinence. Patient thinks she may have had a seizure. Chipped tooth which she thinks she swallowed. Patient consumed some alcohol last night prior to event. Patient's neighbor had patient brought to the hospital. Medical History as above Surgical History : Right hip surgery, shoulder surgery, vascular procedure, cholecystectomy, partial gastrectomy, J-tube placement, hysterectomy, hand surgery Family History : Osteoporosis, von Willebrand's disease, breast cancer, heart disease, alcoholism Personal/Social history : Non-smoker, alcohol abuse as per records, disabled Admission Exam Per Admitting Provider GENERAL: uncomfortable, no respiratory distress SKIN: Normal color, warm HEENT: [place] palpebral conjunctivae, no ptosis, dry buccal mucosa NECK : Supple, no tenderness CHEST : Decreased breath sounds , anterior chest wall tenderness HEART : Tachycardic , no obvious murmurs BACK ; mid back tenderness with limited leg raise bilateral ABDOMEN: no distention, no tenderness EXTREMITIES : No LE swelling, no LE swelling, right hip tenderness, no other conspicuous deformities noted NEUROLOGIC : Coherent, no facial asymmetry, no other gross focality Principal Diagnosis Breakthrough seizure: HISTORY OF SEIZURE DISORDER ALCOHOL ABUSE Transaminitis Fall History of depression a Anxiety Von Willebrand disease History of subdural hematoma and rectus sheath hematoma Discharge Exam General- No acute distress Head- atraumatic Eyes- PERRL, EOMI, ENT- oropharynx clear Neck- supple, no JVD Lungs- clear to auscultation Heart- regular rhythm; no murmur Abdomen- normal bowel sounds, soft, nontender Extremities- no calf tenderness Neuro- alert, oriented x 3; PERRL, EOMI; no facial palsy; no dysarthria Skin- warm & dry Discharge Data Allergies Allergy/AdvReac Type Severity Reaction Status Date / Time iron dextran complex Allergy Severe SOB, heart Verified 02/23/21 17:22 racing (see comments) cat dander Allergy Intermediate eye Verified 02/23/21 17:22 watering ceftriaxone Allergy Intermediate Hives Verified 02/23/21 17:22 ciprofloxacin Allergy Intermediate lips Verified 02/23/21 17:22 burning/peeling doxycycline Allergy Intermediate hives, Verified 02/23/21 17:22 vomiting latex Allergy Intermediate mouth Verified 02/23/21 17:22 hives/burning sensation Penicillins Allergy Intermediate Hives Verified 02/23/21 17:22 Quinolones Allergy Intermediate Hives Verified 02/23/21 17:22 Sulfa (Sulfonamide Allergy Intermediate hives Verified 02/23/21 17:22 Antibiotics) Aminoglycosides Allergy Unknown unknown Verified 02/23/21 17:22 reaction tobramycin AdvReac Severe blindness Verified 02/23/21 17:22 citalopram AdvReac Mild restlessnes Verified 02/23/21 17:22 s Ferric Oxide Allergy Intermediate hives (see Uncoded 02/23/21 17:22 comments) Consultations 02/23/21 20:21 ED Decision to Admit Stat Procedures Performed Operation Date: 02/27/21 11:00 <No data on this case meets the specified criteria> Ordered Studies 02/23/21 16:27 CT abd pelvis IV con only Stat CT cervical spine wo con Stat CT chest diagnostic w con Stat CT head/brain wo con Stat 02/23/21 21:24 MR thoracic spine wo con Routine MR thoracic spine wo con CLINICAL HISTORY: midback pain TECHNIQUE: 3 plane localizer images, axial T2, axial T1, sagittal T2, sagittal T1 and sagittal STIR sequences through the thoracic spine were obtained, without intravenous contrast. Comparison: Comparison is made to MRI thoracic spine 07/21/[address] abdomen pelvis 02/23/2021 FINDINGS: Severe wedge deformity of T4 vertebral body demonstrates marrow edema co. T11 wedge deformity is again noted without bony edema. Partial visualization of L1 compression deformity, also without edema. IMPRESSION: Marrow edema at the progressed wedge deformity of the T4 vertebral body, compatible with acute subacute chronicity. Remaining compression deformities are chronic. ACT 112: Negative or not required by law. Electronically signed by: Atilio Magana M.D. 02/23/2021 10:56 PM Dictated:02/23/212251 Transcribed: 02/23/212251 CT head/brain wo con CLINICAL HISTORY: fall Technique: Contiguous axial CT images of the head were acquired from the base of the skull to the vertex without intravenous contrast administration. Images were viewed in brain, subdural and bone windows. Automated dose lowering techniques and/or adjustment according to patient size were utilized for this exam. Comparison: Comparison is made to CT head 01/08/2021 Findings: Areas of decreased attenuation are present in the periventricular and subcortical white matter bilaterally consistent with small vessel ischemic disease. Generalized cerebral atrophy with commensurate enlargement of the ventricles, sulci, and cisterns is also present. There is no acute intracranial hemorrhage or evidence of acute territorial infarction. No shift of the midline structures, mass effect, or extra-axial abnormalities are shown. Athe rosclerotic calcifications are present in the intracranial segments of the internal carotid arteries. Imaged portions of the paranasal sinuses and mastoid air cells are clear. The orbits appear normal. There are no acute fractures of the calvaria or scalp swelling. Impression: No acute intracranial hemorrhage, skull fractures, or scalp swelling. ACT 112: Negative or not required by law. Electronically signed by: Atilio Magana M.D. 02/23/2021 6:33 PM Dictated:02/23/211831 Transcribed: 02/23/211831 CT chest diagnostic w con CLINICAL HISTORY: fall, CP TECHNIQUE: Multidetector row helical CT of the chest was performed. Coronal and sagittal reformations were obtained. Automated dose lowering techniques and/or adjustment according to patient size were utilized for this exam. Comparison: Comparison is made to CT chest 06/22/2020 FINDINGS: Lungs and pleura: Bilateral atelectasis versus scarring is seen. Heart and pericardium: Heart size is normal. No pericardial effusion. Vessels: Moderate atherosclerotic changes in the aorta and coronary arteries. Mediastinum and liu: Unremarkable. Chest wall and lower neck: Unremarkable. Abdomen: For findings below the diaphragm, please refer to CT of the abdomen dated the same. Bones: Old healed fracture of the sternum. There is complete loss of height of the T4 vertebral body, new from prior exam. There is progression of loss of height in T11 and stable endplate deformity in T12. Bilateral healed rib fractures are seen. IMPRESSION: Multilevel compression deformities are increased from prior exam, but of uncertain chronicity. Correlation with point tenderness is recommended. ACT 112: Negative or not required by law. Electronically signed by: Atilio Magana M.D. 02/23/2021 6:36 PM Dictated:02/23/211833 Transcribed: 02/23/211833 CT cervical spine wo con CLINICAL HISTORY: fall chest and neck pain. TECHNIQUE: Multidetector row helical CT of the cervical spine was performed without administration of intravenous contrast. Coronal and sagittal reformations were obtained. Automated dose lowering techniques and/or adjustment according to patient size were utilized for this exam. Comparison: Comparison is made to FINDINGS: No acute fractures or subluxations are identified. The alignment is normal. Endplate deformities are noted at C7 and T1. The prevertebral soft tissues are unremarkable. IMPRESSION: No evidence of acute injury. ACT 112: Negative or not required by law. Electronically signed by: Atilio Magana M.D. 02/23/2021 6:32 PM Dictated:02/23/211829 Transcribed: 02/23/211829 CT abd pelvis IV con only CLINICAL HISTORY: fall, back pain, eval for any trauma TECHNIQUE: Helical axial images of the abdomen and pelvis were obtained and displayed. Automated dose lowering techniques and/or adjustment according to patient size were utilized for this exam. This exam was performed with intravenous contrast. COMPARISON: Comparison is made to CT abdomen and pelvis 01/08/2021 FINDINGS: Lower chest: No acute abnormality Liver: Hepatic steatosis is noted. Hepatomegaly is seen. Gallbladder and biliary tree: Patient is status post cholecystectomy. Physiologic prominence of the biliary ducts is noted. Pancreas: Unremarkable, no focal lesions. Spleen: Unremarkable. Adrenals: Unremarkable. Kidneys and ureters: Unremarkable. Bladder: Unremarkable. Reproductive organs: Unremarkable. Bowel: A hiatal hernia is seen. Patient is status post gastrectomy with esophagojejunostomy. 1The appendix is unremarkable. Lymph nodes Retroperitoneal: Unremarkable. Mesenteric: Unremarkable. Pelvic: Unremarkable. Peritoneum: Normal Vessels: Atherosclerotic calcifications are seen. Abdominal wall: Unremarkable. Bones: Right total hip arthroplasty is seen. There is a posterior wedge deformity of L1 which is unchanged. IMPRESSION: 1. No acute abnormalities. No fractures are seen. 2. Hepatic steatosis. ACT 112: Negative or not required by law. Electronically signed by: Atilio Magana M.D. 02/23/2021 6:40 PM Dictated:02/23/211835 Transcribed: 02/23/211835 Hospital Course (1) Breakthrough seizure: 50-year-old female with history of seizure disorder, alcoholism, depression anxiety, von Willebrand disease, history of subdural hematoma and rectus sheath hematoma Presenting with possible seizures episodes at home due to non compliant with seizure med that she stopped taking for about 2 weeks BREAKTHROUGH SEIZURES HISTORY OF SEIZURE DISORDER Mostly from medication non adherence CT head showed no acute intracranial finding Received IV Keppra in the ER, then resumed keppra 1500mg BID Patient most likely will stop taking the Keppra DVT side effect of hair loss, will consider to transition to different seizure medication I spoke to neurology Dr. Chicas over the phone that recommended to transition to Vimpat Will start on Vimpat 50 mg p.o. twice daily for 1 week then increase to 100 mg twice daily the following week We will give a loading dose 200 mg of Vimpat to start We will monitor EKG for QT prolongation Major side effect about Vimpat discussed with patient that she has nausea/diarrhea, dizziness, drowsiness, headache, fatigue, blurry vision, normal liver enzyme. follow up with neurology Caitlin Christianson [facility] outpatient after discharge No driving for 6 months from last seizure date, no heights, no bathing or swimming alone emphasized strongly to patient re: medication adherence and she verbalized understanding and agreement Seizure precaution ALCOHOL ABUSE Patient admits last drink 1 day ago She said that she only drinks 1 glass last night Alcohol level normal Continue gabapentin 400 mg 3 times daily Continue Ativan as needed for alcohol withdrawal symptoms Continue monitor for sign of alcohol withdrawal Counseling on alcohol cessation Continue thiamine and folic acid Transaminitis Liver enzyme elevated with AST 227 and ALT 79 Mostly due to alcohol hepatitis CT abdomen and pelvis showed no acute abnormalities. Hepatic steatosis. Will avoid hepatotoxic agent Continue monitor LFTs During last admission gastro arrange for outpatient EUS Fall Possible related to seizure Thoracic MRI spine showed marrow edema at the progressed wedge deformity of the T4 vertebral body, compatible with acute subacute chronicity. Remaining compression deformities are chronic. Continue Toradol as needed for pain Continue PT/ OT albertoal Refused to go to rehab Fall precaution History of depression anxiety patient reports she takes Trazodone, Zoloft daily also takes Ativan 1mg TID PRN with Phenergan for nausea Von Willebrand disease Monitor for bleeding History of subdural hematoma and rectus sheath hematoma DVT prophylaxis- SCDs for now given seizures and history subdural hematoma and VWB Text document was generated using [employer] voice recognition software. It may contain grammatical or spelling errors. Kindly contact undersigned for clarification of any documentation item in question. Total Time Total Time Spent Total Time Spent (In Minutes): 35 minutes Discharge Plan Discharge Items Patient Disposition: Home - Self-Care Reason For Visit: BREAKTHROUGH SZ Discharge Diagnosis: Breakthrough seizure: HISTORY OF SEIZURE DISORDER ALCOHOL ABUSE Transaminitis Fall History of depression a Anxiety Von Willebrand disease History of subdural hematoma and rectus sheath hematoma Activity: Resume your previous activity Non-emergency contact: Primary Care Provider Call non-emergency contact if: you have any medication questions Follow-up/Referrals: Caitlin Christianson PA-C [Physician Electronic Musical Instrument Repairer] - (Date & Time 03/20/2021 11:20 AM Provider Caitlin Christianson PA-C Department Neurology [facility] ) Jaspal Bae MD [Primary Care Provider] - (Date & Time 03/05/2021 11:00 AM Provider Jaspal Bae III, MD Department Family Practice [facility] ) Diet: Heart Healthy Addtl Attending Provider Instructions: Follow up with your primary care provider within 1 week (office will call you for the appointment) Follow up with Neurology in 2-3 weeks (office will call you for the appointment) Continue physical and occupational therapy Counseling on alcohol cessation Check EKG in 1 week to monitor your QT interval since you are on Vimpat (Your provider will order it) Fall and seizure precaution Seek medical attention if your symptoms reoccurs or develop any seizure No driving for 6 months from last seizure date, no heights, no bathing or swimming alone Check CMP in 1 week to monitor your liver enzymes and electrolytes Discontinue Keppra, then started on Vimpat for seizure You will start on Vimpat 50mg twice a day for 1 week, then increase to 100mg twice a day on the 2nd week Pending Studies at Discharge: No Stand-Alone Forms: My [employer], Smoking Cessation Medications and DC Order Prescriptions: New Vimpat 50 mg Tablet 50 mg PO UD 30 Days Qty: 100 RF: 0 oxycodone 5 mg Tablet 5 mg PO Q12 PRN (Reason: pain) Qty: 8 RF: 0 Continued gabapentin 400 mg capsule 400 mg PO TID RF: 0 lorazepam 1 mg tablet 0.5 - 1 mg PO Q8H PRN (Reason: Anxiety) RF: 0 pantoprazole [Protonix] 40 mg tablet,delayed release (DR/EC) 40 mg PO BID RF: 0 fexofenadine [Maame Allergy] 180 mg Tablet 180 mg PO DAILY RF: 0 trazodone 50 mg tablet 50 mg PO HS RF: 0 sertraline 50 mg tablet 50 mg PO DAILY RF: 0 cyclobenzaprine 10 mg tablet 10 mg PO TID PRN (Reason: muscle spasms) RF: 0 promethazine 25 mg tablet 25 mg PO Q8H PRN (Reason: Nausea And Vomiting) RF: 0 Discontinued levetiracetam [Keppra] 500 mg tablet 1,500 mg PO BID RF: 0 Discharge Orders: Discharge Order (Routine); Ordered 02/26/21 Ordered By: Jose Alonso Admission Data Admit Date/Time: 02/23/21 21:20 Attending Provider: Jose Alonso Admit Provider: Joby Gorman Primary Care Provider: Jaspal Bae Other Providers: Joby Gorman Other Interventions: Discharge Summary Assessment (RN) Last Done: 02/26/21 11:09
== END 2021-02-26 12:16 | disposition home or self-care (01) ==
LOC: ED 15:18 → 2W 15:18

== ENCOUNTER 2021-10-14 15:12 | Inpatient (IN) ==
--- NOTE | 2021-10-14 15:17 | Emergency Department Note ---
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 effusion. Upper abdomen: The adrenal glands are normal bilaterally. Osseous structures: There is no acute osseous pathology. There are old compression fractures of T4, T11 and T12. The patient is status post internal fixation of the right humeral head and neck. IMPRESSION: 1. No acute chest disease. 2. Small bilateral pleural effusions. 3. The compression fractures of T4, T11 and T12 are old and were seen on the previous CT of the chest. ACT 112: Negative or not required by law. Electronically signed by: Cayetano Baker M.D. 10/14/2021 6:[address] 10/14/21 15:34 CT lumbar spine w con CLINICAL HISTORY: Status post fall with back pain COMPARISON STUDY: CT the abdomen and pelvis from 07/20/2021 CT DOSE: TECHNIQUE: Standard CT of the Lumbar Spine was performed without IV contrast. A dose lowering technique was utilized adhering to the principles of ALARA. Contrast is present from previous CT of the chest. Optiray 320, 93 mL FINDINGS: Bones: There is an old compression fracture of the L1 vertebral body with minimal posterior extension into the spinal canal. There is no evidence for an acute fracture or malalignment. The heights of the remaining lumbar vertebral bodies are maintained. The vertebral bodies are in anatomic alignment. Disc spaces: There is moderate narrowing at L4-5. Facet joints: Degenerative facet joint disease is present involving the lower disc space levels. The sacroiliac joints are intact bilaterally. Soft tissues: The prevertebral soft tissues are within normal limits. IMPRESSION: 1. Osteopenia with old L1 compression fracture. 2. No acute compression fracture. 3. Degenerative disc and degenerative facet joint disease. ACT 112: Negative or not required by law. Electronically signed by: Cayetano Baker M.D. 10/14/2021 6:[address] 10/14/21 15:34 CT thoracic spine w con CLINICAL HISTORY: Status post fall with pain COMPARISON STUDY: No previous studies for comparison. CT DOSE: TECHNIQUE: Standard CT of the Thoracic Spine was performed without IV contrast. A dose lowering technique was utilized adhering to the principles of ALARA. Contrast is present from previous CT of the chest. Optiray 320, 93 mL FINDINGS: Bones: The bones are osteopenic. There is evidence for acute compression fractures of T4, T11 and T12. Old anterior wedge deformity is present at T5. The heights of the remaining thoracic vertebral bodies are maintained. The vertebral bodies are in anatomic alignment. Disc spaces: Mild to moderate disc space narrowing is seen throughout the thoracic spine. Pedicles::The pedicles are intact bilaterally. Soft tissues: The paraspinal soft tissues are within normal limits. IMPRESSION: 1. Evidence for acute compression fractures of T4, T11 and T12. ACT 112: Negative or not required by law. Electronically signed by: Cayetano Baker M.D. 10/14/2021 6:43 PM Discharge Plan Visit Data Chief Complaint: Pain (Generalized) Stated Complaint: FALL, SHOULDER & RIB PAIN ED Provider: Stef Robison Discharge Problem: Elevated lactic acid level, Acute dehydration, Acute shoulder pain, Rib pain on right side, Von Willebrand disease, Hypocalcemia Patient Disposition: Admitted As Inpatient Forms Stand Alone Forms: My [facility] Prescriptions Prescriptions: No Action gabapentin 400 mg capsule 400 mg PO TID RF: 0 lorazepam 1 mg tablet 0.5 - 1 mg PO TID PRN (Reason: Anxiety) RF: 0 pantoprazole [Protonix] 40 mg tablet,delayed release (DR/EC) 40 mg PO BID RF: 0 fexofenadine [Maame Allergy] 180 mg Tablet 180 mg PO DAILY RF: 0 potassium chloride 10 mEq tablet,ER particles/crystals 20 meq PO DAILY RF: 0 acetaminophen 325 mg Tablet 650 mg PO Q6 PRN (Reason: Fever Or Pain) RF: 0 lidocaine 4 % Adhesive Patch,Medicated 1 patch TOPICAL BID RF: 0 trazodone 50 mg tablet 50 mg PO HS RF: 0 albuterol sulfate 90 mcg/actuation HFA aerosol inhaler 2 puff INHALATION QID PRN (Reason: Shortness Of Breath Or Wheezing) RF: 0 white petrolatum [White Petroleum Jelly] Gel 1 applic TOPICAL UD PRN (Reason: Rash) RF: 0 Tymlos 80 mcg (3,120 mcg/1.56 mL) Pen Injector 80 mcg SUBCUT DAILY RF: 0 cyclobenzaprine 10 mg tablet 10 mg PO BID PRN (Reason: muscle spasms) RF: 0 promethazine 25 mg tablet 25 mg PO Q8H PRN (Reason: Nausea) RF: 0 furosemide 40 mg tablet 40 mg PO DAILY Qty: 30 RF: 0 Referrals Referrals: Jaspal Bae MD [Primary Care Provider] -
[2021-10-14] MEDS ORDERED: SODIUM CHLORIDE 0.9% 1000ML 1,000 ML IV SCH ×2 (15:30→16:30)
[2021-10-14] MEDS ORDERED: MoRPHine SULFATE 2 MG/ML CARP IV STA ×2 (15:33→22:44)
[2021-10-14] MEDS ORDERED: AZTREONAM 2,000 MG in DEXTROSE 5% 100 ML IV ONE (15:45)
[2021-10-14] MEDS ORDERED: VANCOMYCIN HCL 1,250 MG in SODIUM CHLORIDE 0.9% 250 ML IV ONE (15:45)
[2021-10-14] MEDS ORDERED: PROMETHAZINE 12.5 MG/50.5 ML BAG IV STA (16:34)
[2021-10-14 16:42] LABS: Basophils # (auto) 0.03 K/uL (0-0.2); Basophils % (auto) 0.3 %; Eosinophils # (auto) 0.17 K/uL (0-0.5); Eosinophils % (auto) 1.5 %; Hemoglobin 8.1 g/dL (12.0-16.0); Immature Granulocytes # (auto) 0.03 K/uL (0.00-0.02); Immature Granulocytes % (auto) 0.3 %; Lymphocytes # (auto) 0.62 K/uL (1.2-3.4); Lymphocytes % (auto) 5.6 %; Mean Corpuscular Hemoglobin 32.8 pg (25-34); Mean Corpuscular Hgb Conc 33.8 g/dL (32-36); Mean Corpuscular Volume 97.2 fL (80-100); Mean Platelet Volume 10.1 fL (7.4-10.4); Monocytes # (auto) 1.34 K/uL (0.11-0.59); Monocytes % (auto) 12.2 %; Neutrophils % (auto) 80.1 %; Platelet Count 372 K/uL (130-400); RDW Coefficient of Variation 17.1 % (11.5-14.5); RDW Standard Deviation 60.3 fL (36.4-46.3); Red Blood Count 2.47 M/uL (4.2-5.4); White Blood Count 10.99 K/uL (4.8-10.8)
[2021-10-14 17:09] LABS: Troponin I High Sensitivity 5.7 pg/ml (0-14)
[2021-10-14 17:25] LABS: Albumin Globulin Ratio 0.8 (0.9-2); Albumin Level 1.8 gm/dl (3.4-5.0); BUN Creatinine Ratio 10.5 (10-20); Bilirubin,Total 2.6 mg/dl (0.2-1.0); Calcium 7.2 mg/dl (8.5-10.1); Creatinine Clr Calc Pharmacy 62.3 ml/min; Est GFR (African American) 79.8 ml/min; Est GFR (Non-African American) 68.9 ml/min; Globulin 2.3 gm/dl (2.5-4.0); Magnesium 1.9 mg/dl (1.7-2.4); Potassium 3.6 mmol/L (3.5-5.1); Total Protein 4.1 gm/dl (6.0-8.3)
[2021-10-14 17:29] LABS: INR 1.5 (0.9-1.1); Partial Thromboplastin Ratio 1.7; Prothrombin Time 15.3 Seconds (9.0-12.0)
[2021-10-14 17:35] LABS: Partial Thromboplastin Time 46.1 Seconds (21.0-31.0)
--- NOTE | 2021-10-14 17:36 | Electrocardiogram Report ---
Test Reason : Blood Pressure : / mmHG Vent. Rate : 109 BPM Atrial Rate : 109 BPM P-R Int : 138 ms QRS Dur : 046 ms QT Int : 296 ms P-R-T Axes : 031 033 098 degrees QTc Int : 398 ms Sinus tachycardia Low voltage QRS Nonspecific T wave abnormality Abnormal ECG Confirmed by Henry Golden ([id number]) on 10/14/2021 5:36:13 PM Referred By: Confirmed By:Marcello Golden
[2021-10-14] MEDS ORDERED: MoRPHine SULFATE 4 MG/ML 1 ML CARP\\VIAL IV STA (17:58)
[2021-10-14] MEDS ORDERED: OPTIRAY 320 100ml IV ONE (18:07)
[2021-10-14] MEDS: CALCIUM GLUCONATE 1,000 MG/60 ML BAG IV SCH ×2 (18:23→18:58)
[2021-10-14] MEDS ORDERED: SODIUM CHLORIDE 0.9% 1000ML 1,000 ML IV ONE (18:27)
--- NOTE | 2021-10-14 18:34 | CT Scan Report ---
CT head/brain wo con CLINICAL HISTORY: Status post fall with pain COMPARISON STUDY: 02/23/2021 CT DOSE: 2075.57 mGy.cm TECHNIQUE: Standard CT of the Brain was performed without IV contrast. A dose lowering technique was utilized adhering to the principles of ALARA. FINDINGS: Extraaxial space: There is no evidence for subdural hematoma. There are no extra-axial fluid collecti ons. Ventricles and cisterns: The ventricles are mildly dilated bilaterally. There is no evidence for midl ine shift or mass effect. Parenchyma: There is no subarachnoid or intraparenchymal hemorrhage. There is no evidence for an acut e infarct or cerebral edema. There is homogeneous attenuation of the brain parenchyma. There are no g ross mass lesions. Osseous structures: There is no evidence for an acute fracture. The visualized paranasal sinuses are clear. The mastoid air cells are clear bilaterally. Soft tissues: There is no evidence for focal soft tissue swelling. IMPRESSION: 1. No acute intracerebral pathology. ACT 112: Negative or not required by law. Electronically signed by: Cayetano Baker M.D. 10/14/2021 6:32 PM
--- NOTE | 2021-10-14 18:38 | CT Scan Report ---
CT cervical spine wo con CLINICAL HISTORY: Status post fall with neck pain COMPARISON STUDY: No previous studies for comparison. CT DOSE: TECHNIQUE: Standard CT of the Cervical Spine was performed without IV contrast. A dose lowering scottie hnique was utilized adhering to the principles of ALARA. FINDINGS: Bones: There is no evidence for an acute fracture or malalignment. The heights of the vertebral mari s are maintained. The vertebral bodies are in anatomic alignment. The odontoid is intact and the atla ntoaxial articulation is within normal limits. Disc spaces: The disc space heights are maintained. Apophyseal joints: The apophyseal joints are intact bilaterally. Soft tissues: The prevertebral soft tissues are within normal limits. IMPRESSION: 1. Negative CT of the cervical spine. ACT 112: Negative or not required by law. Electronically signed by: Cayetano Baker M.D. 10/14/2021 6:35 PM
--- NOTE | 2021-10-14 18:45 | CT Scan Report ---
CT thoracic spine w con CLINICAL HISTORY: Status post fall with pain COMPARISON STUDY: No previous studies for comparison. CT DOSE: TECHNIQUE: Standard CT of the Thoracic Spine was performed without IV contrast. A dose lowering tech nique was utilized adhering to the principles of ALARA. Contrast is present from previous CT of the c hest. Optiray 320, 93 mL FINDINGS: Bones: The bones are osteopenic. There is evidence for acute compression fractures of T4, T11 and T12 . Old anterior wedge deformity is present at T5. The heights of the remaining thoracic vertebral bodi es are maintained. The vertebral bodies are in anatomic alignment. Disc spaces: Mild to moderate disc space narrowing is seen throughout the thoracic spine. Pedicles::The pedicles are intact bilaterally. Soft tissues: The paraspinal soft tissues are within normal limits. IMPRESSION: 1. Evidence for acute compression fractures of T4, T11 and T12. ACT 112: Negative or not required by law. Electronically signed by: Cayetano Baker M.D. 10/14/2021 6:43 PM
--- NOTE | 2021-10-14 18:50 | CT Scan Report ---
CT lumbar spine w con CLINICAL HISTORY: Status post fall with back pain COMPARISON STUDY: CT the abdomen and pelvis from 07/20/2021 CT DOSE: TECHNIQUE: Standard CT of the Lumbar Spine was performed without IV contrast. A dose lowering techni que was utilized adhering to the principles of ALARA. Contrast is present from previous CT of the [facility]. Optiray 320, 93 mL FINDINGS: Bones: There is an old compression fracture of the L1 vertebral body with minimal posterior extension into the spinal canal. There is no evidence for an acute fracture or malalignment. The heights of th e remaining lumbar vertebral bodies are maintained. The vertebral bodies are in anatomic alignment. Disc spaces: There is moderate narrowing at L4-5. Facet joints: Degenerative facet joint disease is present involving the lower disc space levels. The sacroiliac joints are intact bilaterally. Soft tissues: The prevertebral soft tissues are within normal limits. IMPRESSION: 1. Osteopenia with old L1 compression fracture. 2. No acute compression fracture. 3. Degenerative disc and degenerative facet joint disease. ACT 112: Negative or not required by law. Electronically signed by: Cayetano Baker M.D. 10/14/2021 6:48 PM
--- NOTE | 2021-10-14 18:57 | CT Scan Report ---
CT chest diagnostic w con CLINICAL HISTORY: Trauma with back and right arm pain COMPARISON STUDY: 02/23/2021 CT DOSE: TECHNIQUE: Standard CT of the Chest was performed with IV contrast. A dose lowering technique was u tilized adhering to the principles of ALARA. Contrast Volume: Optiray 320, 93 ml FINDINGS: Airway: The airway is clear. No endobronchial lesion is identified. Lungs: The lungs are clear of acute alveolar opacities, air bronchograms or pulmonary nodules. Pleura: There are small bilateral pleural effusions. There is no evidence for pneumothorax. Mediastinum: There is no evidence for pathologic adenopathy. The heart size is within normal limits. The thoracic aorta is within normal limits. There is no evidence for pericardial effusion. Upper abdomen: The adrenal glands are normal bilaterally. Osseous structures: There is no acute osseous pathology. There are old compression fractures of T4, T 11 and T12. The patient is status post internal fixation of the right humeral head and neck. IMPRESSION: 1. No acute chest disease. 2. Small bilateral pleural effusions. 3. The compression fractures of T4, T11 and T12 are old and were seen on the previous CT of the chest . ACT 112: Negative or not required by law. Electronically signed by: Cayetano Baker M.D. 10/14/2021 6:55 PM
--- NOTE | 2021-10-14 19:14 | CT Scan Report ---
CT abd pelvis IV con only CLINICAL HISTORY: Trauma with pain COMPARISON STUDY: No previous studies for comparison. CT DOSE: TECHNIQUE: Standard CT of the Abdomen and Pelvis was performed with IV contrast. A dose lowering scottie hnique was utilized adhering to the principles of ALARA. Contrast Volume: Optiray 320, 93 ml. The patient did not receive oral contrast. FINDINGS: Abdominal cavity: There is no evidence for abdominal mass, adenopathy or ascites. There is mild anasa rca. Liver: There is diffuse fatty infiltration of the liver. There is also moderate hepatomegaly. There i s no evidence for enhancing mass lesion. Spleen: There is homogeneous attenuation of the splenic parenchyma. There is no enhancing mass lesion . Pancreas: There is homogeneous attenuation of the pancreatic parenchyma. There is no evidence for mas s lesion or peripancreatic fluid collection. Gall Bladder: Surgical clips are present with minimal physiologic dilatation of the common bile duct. Adrenal glands: The adrenal glands are normal in size and attenuation. There is no evidence for enhan cing mass lesion. Kidneys: There is homogeneous attenuation of the renal parenchyma bilaterally. There is no evidence f or renal calculus or hydronephrosis. There is no evidence for enhancing mass. Bowel: There is a small to moderate size hiatal hernia. The bowel loops are normally placed within th e abdomen and pelvis without evidence for dilatation or obstruction. There is no evidence for mass le cristino. There are no inflammatory changes present. There is no evidence for free air. Bladder: The bladder is within normal limits with no evidence for focal mass, calculus or diverticulu m. : There is no evidence for pelvic mass or adenopathy. There is no evidence for pelvic ascites. Vasculature: There is no evidence for aneurysmal dilatation of the abdominal aorta. Osseous structures: There is no acute osseous pathology. Old L1 compression fracture seen. Old fractu res of the ischial pubic rami also present. There is a right hip replacement. IMPRESSION: 1. No acute intra-abdominal or pelvic abnormality. 2. Mild anasarca. 3. Hepatomegaly with diffuse fatty infiltration of the liver. 4. Small to moderate size hiatal hernia. 5. Additional nonacute findings are delineated above. ACT 112: Negative or not required by law. Electronically signed by: Cayetano Baker M.D. 10/14/2021 7:11 PM
--- NOTE | 2021-10-14 19:37 | XRay Report ---
XR chest 1V portable CLINICAL HISTORY: SEPSIS. COMPARISON STUDY: 07/20/2021 TECHNIQUE: 1 view of the chest FINDINGS: Single frontal view of the chest demonstrates the cardiomediastinal silhouette to be within normal li mits. The lungs are clear of alveolar opacities. There is no evidence for pleural effusion. There is no evidence for vascular congestion. There is no acute osseous pathology. IMPRESSION: 1. No acute cardiopulmonary disease. ACT 112: Negative or not required by law. Electronically signed by: Cayetano Baker M.D. 10/14/2021 7:36 PM
--- NOTE | 2021-10-14 19:39 | XRay Report ---
XR shoulder RT min 2V routine CLINICAL HISTORY: pain post fall. COMPARISON STUDY: 09/01/2020 TECHNIQUE: 3 right shoulder views FINDINGS: Bones: Compared to previous examination, plate and screw fixation is again seen transfixing a remote, healed fracture of the proximal humerus. There is no evidence for an acute fracture or dislocation. There is no lytic or blastic lesion. Joints: There is mild narrowing of the glenohumeral joint and acromioclavicular joint. The bones are in anatomic alignment. Soft tissues: There is no focal soft tissue abnormality. There is no radiopaque foreign body. IMPRESSION: 1. No acute osseous pathology. 2. Stable internal fixation ACT 112: Negative or not required by law. Electronically signed by: Cayetano Baker M.D. 10/14/2021 7:38 PM
--- NOTE | 2021-10-14 19:42 | XRay Report ---
XR hip RT 2V w pelvis CLINICAL HISTORY: pain post fall. COMPARISON STUDY: 09/01/2020 TECHNIQUE: Pelvis and right hip 2 views FINDINGS: Bones: There is no evidence for an acute fracture or dislocation. There is no lytic or blastic lesion . Joints: There is a stable total hip replacement. The prosthetic components are in anatomic alignment with no acute abnormality. The bones are in anatomic alignment. Soft tissues: There is no focal soft tissue abnormality. There is no radiopaque foreign body. IMPRESSION: 1. No acute osseous pathology. 2. Stable total hip replacement ACT 112: Negative or not required by law. Electronically signed by: Cayetano Baker M.D. 10/14/2021 7:40 PM
[2021-10-14] MEDS ORDERED: HYDROmorphone INJ 0.5 MG/0.5 ML SYR IV STA (20:11)
[2021-10-15] MEDS ORDERED: NITROGLYCERIN SL 0.4 MG/TAB TAB SL PRN (00:34)
[2021-10-15] MEDS ORDERED: VANCOMYCIN CONSULT ACTIVE PRN (00:34)
[2021-10-15] MEDS ORDERED: PROMETHAZINE HCL 25 MG TAB PO PRN (00:34)
[2021-10-15] MEDS ORDERED: ACETAMINOPHEN 325 MG TAB PO PRN (00:34)
[2021-10-15] MEDS ORDERED: ONDANSETRON INJ 2 MG/ML 2 ML VIAL IV PRN (00:34)
[2021-10-15] MEDS ORDERED: ALBUTEROL HFA 8 GM INHALER INH PRN (00:34)
[2021-10-15] MEDS ORDERED: PANTOprazole 40 MG TAB PO SCH (00:34)
[2021-10-15] MEDS ORDERED: LORazepam 0.5 MG TAB PO PRN (00:34)
[2021-10-15] MEDS ORDERED: CYCLOBENZAPRINE HCL 10 MG TAB PO PRN (00:34)
[2021-10-15] MEDS: SODIUM CHLORIDE 0.9% 1000ML 1,000 ML IV SCH ×3 (01:00→10:35)
[2021-10-15] MEDS ORDERED: ENOXAPARIN INJ 40 MG/0.4 ML SYR SQ SCH (01:00)
[2021-10-15] MEDS: MoRPHine SULFATE 2 MG/ML CARP IV PRN ×2 (01:09→10:30)
[2021-10-15] MEDS ORDERED: LORazepam 2 MG/1 ML VIAL IV PRN (01:38)
[2021-10-15] MEDS: AZTREONAM 2,000 MG in DEXTROSE 5% 100 ML IV SCH ×2 (01:57→10:30)
[2021-10-15] MEDS: PANTOprazole 40 MG in SYRINGE 0 ML IV SCH ×2 (01:57→08:21)
--- NOTE | 2021-10-15 03:00 | History and Physical Report ---
DATE OF ADMISSION: 10/14/2021. CHIEF COMPLAINT: Severe sepsis. HISTORY OF PRESENT ILLNESS: This 51-year-old female with past medical history significant for von Willebrand disease, chronic anemia, history of peptic ulcer disease status post gastrectomy several years ago. 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 She says she fell almost a day ago. She says she is not eating for last 3 days. She says she walks with holding things at home and she can put food in the microwave and cook herself. She goes to bathroom herself and she says she has a bowel movement a couple of times a week . Says she micturates a lot as she drinks a lot of juices and water. Says she tripped and fell. She was afebrile. White count was 10.9, hemoglobin 8.1, which is close to baseline. INR 1.5. Sodium 129, CO2 20, lactate initial result was 7.6, after fluids repeat was 4.5. Total bilirubin 2.6. SARS-CoV-2 rapid test negative. Imaging studies are okay, but the patient has severe rash from the middle of the trunk down, also on the lower extremities, dry skin but in the thigh region the skin is wet and also there a lot of peeling of the skin is seen. The patient complaints of pain all over the body and some headache. No cough, no runny nose or sore throat. Has dry mouth. She has some nausea. Denies any chest pain, no shortness of breath. She has no abdominal pain. Blood pressure is somewhat soft. ALLERGIES: IRON DEXTRAN COMPLEX, CAT DANDER, CEFTRIAXONE, CIPROFLOXACIN, DOXYCYCLINE, LATEX, PENICILLIN, QUINOLONES, SULFA ANTIBIOTICS, AMINOGLYCOSIDES, TOBRAMYCIN, CITALOPRAM, FERRIC OXIDE. PAST MEDICAL HISTORY: As mentioned above. PAST SURGICAL HISTORY: Colonoscopy, colonoscopy with biopsy, EGD, EGD with biopsy, MediPort, cholecystectomy, partial gastrectomy with vagotomy, Butch-en-Y reconstruction, post-polypectomy, right total hip replacement, total hysterectomy. MEDICATIONS: The patient is on acetaminophen 650 mg p.o. q.6 hours p.r.n., albuterol 2 puffs inhalation q.i.d. p.r.n., cyclobenzaprine 10 mg p.o. b.i.d. p.r.n., Maame 180 mg p.o. daily, Lasix 40 mg p.o. daily, gabapentin 400 mg p.o. t.i.d., lidocaine patch topical b.i.d., Ativan 0.5-1 mg p.o. t.i.d. p.r.n., Protonix 40 mg p.o. b.i.d., potassium chloride 20 mEq p.o. daily, promethazine 25 mg p.o. q.8 hours p.r.n., trazodone 50 mg p.o. at bedtime, white petroleum topical p.r.n. FAMILY HISTORY: Significant for father has alcoholism, diabetes, eye problems, heart disorder. Brother has von Willebrand disease. Mother has von Willebrand disease; paternal grandmother has von Willebrand disease. Son has von Willebrand disease. Aunt has breast cancer. SOCIAL HISTORY: from boyfriend . No smoking. No alcohol. Occasional drug use. REVIEW OF SYSTEMS: As per HPI. Rest of review of systems negative. PHYSICAL EXAMINATION: GENERAL: The patient is moderately built, somewhat shaky. VITAL SIGNS: Temperature 36.1, pulse 96, respiratory rate 16, blood pressure 92/57, oxygen 99% on room air. HEENT: Pupils equal, round, and reactive to light. Oral mucosa dry. NECK: No JVD. No neck masses. CARDIOVASCULAR: S1 and S2 heard. Regular rate and rhythm. No murmur, no gallop. RESPIRATORY SYSTEM: Normal AP diameter. No accessory muscle use. No wheezing, no crackles. ABDOMEN: Soft. Bowel sounds are present. Mild discomfort. Mild guarding, no rigidity. No distention. CENTRAL NERVOUS SYSTEM: The patient is blind. No facial droop. Speech is clear. Obeys simple commands. Moves extremities. EXTREMITIES: Dry skin seen with erythematous changes. SKIN: Erythematous and dry skin from below trunk extensively and also in thigh region, the patient has a somewhat wet skin and peeling of the skin excessively. LABORATORY: WBC 10.9, hemoglobin 8.1, hematocrit 24, platelets 372. PT 15.1, INR 1.5, APTT 46.1. Sodium 129, potassium 3.6, chloride 96, bicarbonate 20, BUN 10, creatinine 0.9, serum glucose 149. Lactate 7.6, repeat lactate is 4.5, calcium 7.2, magnesium 1.9, total bilirubin 2.6, AST 14, ALT 23, alkaline phosphatase 159. Total creatinine kinase 24. Troponin 1I high sensitivity 5.7. SARS-CoV-2 rapid test negative. IMAGING: Thoracic spine CT old compression fractures of T4, T11, and T12. Lumbar spine, possibly old L1 compression fracture. No acute compression fracture. Chest CT with contrast, no acute chest disease. Small bilateral pleural effusions. CT of abdomen and pelvis with IV contrast, no acute intraabdominal or pelvic abnormality. Mild anasarca. Hepatomegaly with diffuse fatty infiltration of the liver, small to moderate size hiatal hernia. Shoulder x-ray, no acute osseous pathology. Stable internal fixation. Hip and pelvic x- ray, no acute osseous pathology. Stable total hip replacement. Head CT, no acute intracerebral pathology. Negative CT of the cervical spine. Chest x-ray, no acute cardiopulmonary disease. EKG: Sinus tachycardia at a rate of 109, no acute ST changes seen. ASSESSMENT AND PLAN: This 51-year-old female who presents with severe sepsis. 1. Severe sepsis./septic chock She has peeling of skin in thigh region as well as skin rash involving most of the body from below the breast region. We will follow urine culture and blood cultures. She has multiple drug allergies. on vancomycin and aztreonam, which will be continued. _Aggressive fluids. Follow the repeat lactic acid. The patient is DNR/DNI. As Blood pressure was dropping gave more fluids and requested ICU to evaluate the yumi. Yumi currently has only one line. Difficult vascular access.Critical and surgery felt they could not place central line in IJ and and also subclavian as she had 3 ports in the past. Dont want to place line in Femoral because of severe skin peeling and possible infection. [place] Yumi needs urgent line with IR support. As yumi currently requiring pressor support critical care in egan accepted patinet and will be life flighted soon. 2. Hyponatremia. Sodium 129. Getting fluids. Follow repeat labs. 3. Thoracic spine compression fractures Seems chronic . PT, OT when stable. 4. History of von Willebrand disease and history of anemia. Hemoglobin 8.1, which seems to be at baseline level of 9. We will follow. Repeat labs. Get stool for Hemoccult.Needs factor 8 before any procedures. 5. Anxiety, depression. On Ativan p.r.n. 6. History of allergic contact dermatitis. She allergic contact dermatitis in the past and she was treated with betamethasone and low dose prednisone with improvement in the rash. We will consult dermatology as currently having significant rash involving most of the body.. 7. History of edema. We will hold the Lasix for now, as the patient is in sepsis. DVT PROPHYLAXIS: Placed on Lovenox for now. DISPOSITION: Transferring to [place]. CODE STATUS: DNR/DNI as per discussion with the patient. Job ID: [id number]
[2021-10-15] MEDS ORDERED: SODIUM CHLORIDE 0.9% 500 ML IV SCH (03:15)
[2021-10-15 04:40] LABS: Basophils # (auto) 0.03 K/uL (0-0.2); Basophils % (auto) 0.4 %; Eosinophils # (auto) 0.66 K/uL (0-0.5); Hemoglobin 7.8 g/dL (12.0-16.0); Immature Granulocytes # (auto) 0.02 K/uL (0.00-0.02); Immature Granulocytes % (auto) 0.3 %; Lymphocytes # (auto) 0.57 K/uL (1.2-3.4); Lymphocytes % (auto) 7.7 %; Mean Corpuscular Hemoglobin 33.1 pg (25-34); Mean Corpuscular Hgb Conc 33.9 g/dL (32-36); Mean Corpuscular Volume 97.5 fL (80-100); Mean Platelet Volume 9.9 fL (7.4-10.4); Monocytes # (auto) 0.58 K/uL (0.11-0.59); Monocytes % (auto) 7.9 %; Neutrophils % (auto) 74.7 %; Platelet Count 275 K/uL (130-400); RDW Coefficient of Variation 17.1 % (11.5-14.5); RDW Standard Deviation 60.3 fL (36.4-46.3); Red Blood Count 2.36 M/uL (4.2-5.4); White Blood Count 7.36 K/uL (4.8-10.8)
[2021-10-15 04:57] LABS: Basophilic Stippling 1+; Hypochromasia Present; Polychromasia 1+; Target Cells 1+
[2021-10-15 04:58] LABS: BUN Creatinine Ratio 14.9 (10-20); Calcium 6.9 mg/dl (8.5-10.1); Creatinine Clr Calc Pharmacy 88.4 ml/min; Est GFR (African American) 117.1 ml/min; Est GFR (Non-African American) 101.1 ml/min; Magnesium 1.8 mg/dl (1.7-2.4); Potassium 3.3 mmol/L (3.5-5.1)
[2021-10-15] MEDS ORDERED: SODIUM CHLORIDE 0.9% 1000ML 500 ML IV ONE (05:17)
[2021-10-15] MEDS ORDERED: STAT IV Infusion **Titration per Protocol STA (05:38)
[2021-10-15] MEDS ORDERED: NOREPINEPHRINE/D5W 4 MG/250 ML PLCT IV SCH (05:45)
[2021-10-15] MEDS ORDERED: VANCOMYCIN HCL 1,250 MG in SODIUM CHLORIDE 0.9% 250 ML IV SCH (06:00)
--- NOTE | 2021-10-15 06:08 | Discharge Summary ---
Date of Service October 15, 2021 Admission HPI Per Admitting Provider This 51-year-old female with past medical history significant for von Willebrand disease, chronic anemia, history of peptic ulcer disease status post gastrectomy several years ago. 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 She says she fell almost a day ago. She says she is not eating for last 3 days. She says she walks with holding things at home and she can put food in the microwave and cook herself. She goes to bathroom herself and she says she has a bowel movement a couple of times a week . Says she micturates a lot as she drinks a lot of juices and water. Says she tripped and fell. She was afebrile. White count was 10.9, hemoglobin 8.1, which is close to baseline. INR 1.5. Sodium 129, CO2 20, lactate initial result was 7.6, after fluids repeat was 4.5. Total bilirubin 2.6. SARS-CoV-2 rapid test negative. Imaging studies are okay, but the patient has severe rash from the middle of the trunk down, also on the lower extremities, dry skin but in the thigh region the skin is wet and also there a lot of peeling of the skin is seen. The patient complaints of pain all over the body and some headache. No cough, no runny nose or sore throat. Has dry mouth. She has some nausea. Denies any chest pain, no shortness of breath. She has no abdominal pain. Blood pressure is somewhat soft. Admission Exam Per Admitting Provider GENERAL: The patient is moderately built, somewhat shaky. VITAL SIGNS: Temperature 36.1, pulse 96, respiratory rate 16, blood pressure 92/57, oxygen 99% on room air. HEENT: Pupils equal, round, and reactive to light. Oral mucosa dry. NECK: No JVD. No neck masses. CARDIOVASCULAR: S1 and S2 heard. Regular rate and rhythm. No murmur, no gallop. RESPIRATORY SYSTEM: Normal AP diameter. No accessory muscle use. No wheezing, no crackles. ABDOMEN: Soft. Bowel sounds are present. Mild discomfort. Mild guarding, no rigidity. No distention. CENTRAL NERVOUS SYSTEM: The patient is blind. No facial droop. Speech is clear. Obeys simple commands. Moves extremities. EXTREMITIES: Dry skin seen with erythematous changes. SKIN: Erythematous and dry skin from below trunk extensively and also in thigh region, the patient has a somewhat wet skin and peeling of the skin excessively. Principal Diagnosis Septic shock Discharge Data Allergies Allergy/AdvReac Type Severity Reaction Status Date / Time iron dextran complex Allergy Severe SOB, heart Verified 10/14/21 17:14 racing (see comments) cat dander Allergy Intermediate eye Verified 10/14/21 17:14 watering ceftriaxone Allergy Intermediate Hives Verified 10/14/21 17:14 ciprofloxacin Allergy Intermediate lips Verified 10/14/21 17:14 burning/peeling doxycycline Allergy Intermediate hives, Verified 10/14/21 17:14 vomiting latex Allergy Intermediate mouth Verified 10/14/21 17:14 hives/burning sensation Penicillins Allergy Intermediate Hives Verified 10/14/21 17:14 Quinolones Allergy Intermediate Hives Verified 02/23/21 17:22 Sulfa (Sulfonamide Allergy Intermediate hives Verified 10/14/21 17:14 Antibiotics) Aminoglycosides Allergy Unknown unknown Verified 10/14/21 17:14 reaction tobramycin AdvReac Severe blindness Verified 10/14/21 17:14 citalopram AdvReac Mild restlessnes Verified 10/14/21 17:14 s Ferric Oxide Allergy Intermediate hives (see Uncoded 02/23/21 17:22 comments) Consultations 10/14/21 20:11 ED Decision to Admit Stat 10/15/21 01:00 Consult Behavioral Health Liaison Routine 10/15/21 08:00 Consult Dermatology Routine Ordered Studies 10/14/21 15:33 CT cervical spine wo con Stat CT head/brain wo con Stat 10/14/21 15:34 CT abd pelvis IV con only Stat CT chest diagnostic w con Stat CT lumbar spine w con Stat CT thoracic spine w con Stat Hospital Course (1) Elevated lactic acid level: (2) Septic shock: This 51-year-old female who presents with severe sepsis. 1. Severe sepsis./septic chock She has peeling of skin in thigh region as well as skin rash involving most of the body from below the breast region. We will follow urine culture and blood cultures. She has multiple drug allergies. on vancomycin and aztreonam, which will be continued. _Aggressive fluids. Fo llow the repeat lactic acid. The patient is DNR/DNI. As Blood pressure was dropping gave more fluids and requested ICU to evaluate the patijoyce. Yumi currently has only one line. Difficult vascular access.Critical and surgery felt they could not place central line in IJ and and also subclavian as she had 3 ports in the past. Dont want to place line in Femoral because of severe skin peeling and possible infection. [place] Yumi needs urgent line with IR support. As yumi currently requiring pressor support critical care in [place] accepted patinet and will be life flighted soon. 2. Hyponatremia. Sodium 129. Getting fluids. Follow repeat labs. 3. Thoracic spine compression fractures Seems chronic . PT, OT when stable. 4. History of von Willebrand disease and history of anemia. Hemoglobin 8.1, which seems to be at baseline level of 9. We will follow. Repeat labs. Get stool for Hemoccult.Needs factor 8 before any procedures. 5. Anxiety, depression. On Ativan p.r.n. 6. History of allergic contact dermatitis. She allergic contact dermatitis in the past and she was treated with betamethasone and low dose prednisone with improvement in the rash. We will consult dermatology as currently having significant rash involving most of the body.. 7. History of edema. We will hold the Lasix for now, as the patient is in sepsis. DVT PROPHYLAXIS: Placed on Lovenox for now. DISPOSITION: Transferring to [place]. CODE STATUS: DNR/DNI as per discussion with the patient. Total Time Total Time Spent Total Time Spent (In Minutes): one hour Discharge Plan Discharge Items Patient Disposition: Transfer Acute Care Hospital Reason For Visit: PAIN, SEPSIS Discharge Diagnosis: septic shock Activity: As commented below Activity Comment: as per [place] Non-emergency contact: Primary Care Provider Call non-emergency contact if: you have any medication questions and your symptoms worsen Follow-up/Referrals: Jaspal Bae MD [Primary Care Provider] - Diet: Nothing by Mouth Addtl Attending Provider Instructions: Levophed drip iv vanco iv azactum needs central line Pending Studies at Discharge: Yes Studies:: cultures Stand-Alone Forms: My [facility] Skilled Items Patient informed of condition?: Yes Discharge Level of Care: Other Communicable Disease: No Discharge Prognosis: Other Lines: Peripheral IV Urinary Catheter: Yes Medications and DC Order Prescriptions: Continued gabapentin 400 mg capsule 400 mg PO TID RF: 0 lorazepam 1 mg tablet 0.5 - 1 mg PO TID PRN (Reason: Anxiety) RF: 0 pantoprazole [Protonix] 40 mg tablet,delayed release (DR/EC) 40 mg PO BID RF: 0 fexofenadine [Maame Allergy] 180 mg Tablet 180 mg PO DAILY RF: 0 acetaminophen 325 mg Tablet 650 mg PO Q6 PRN (Reason: Fever Or Pain) RF: 0 albuterol sulfate 90 mcg/actuation HFA aerosol inhaler 2 puff INHALATION QID PRN (Reason: Shortness Of Breath Or Wheezing) RF: 0 promethazine 25 mg tablet 25 mg PO Q8H PRN (Reason: Nausea) RF: 0 Discontinued potassium chloride 10 mEq tablet,ER particles/crystals 20 meq PO DAILY RF: 0 lidocaine 4 % Adhesive Patch,Medicated 1 patch TOPICAL BID RF: 0 trazodone 50 mg tablet 50 mg PO HS RF: 0 white petrolatum [White Petroleum Jelly] Gel 1 applic TOPICAL UD PRN (Reason: Rash) RF: 0 Tymlos 80 mcg (3,120 mcg/1.56 mL) Pen Injector 80 mcg SUBCUT DAILY RF: 0 cyclobenzaprine 10 mg tablet 10 mg PO BID PRN (Reason: muscle spasms) RF: 0 furosemide 40 mg tablet 40 mg PO DAILY Qty: 30 RF: 0 Discharge Orders: Discharge Order (Routine); Ordered 10/15/21 Ordered By: Brayan Omalley Admission Data Admit Date/Time: 10/14/21 23:08 Attending Provider: Lisa Malik I. Admit Provider: Brayan Omalley Primary Care Provider: Jaspal Bae Other Providers: Brayan Omalley
--- NOTE | 2021-10-15 06:11 | Critical Care Consultation ---
Date of Consultation October 15, 2021 Assessment & Plan (1) Need for intravenous access: Reason Critically Ill: 51-year-old female requiring either placement of peripheral venous access with central venous access for multiple medications. Patient admitted overnight with sepsis. Patient's initial blood pressures were soft, however maps had been obtained most of the night. She had been receiving IV fluids as well as a number of intravenous medications including antibiotics. Unfortunately, the patient only has 1 intravenous site to the LEFT hand. Given ongoing need for intravenous medications, I was approached by hospitalist service for evaluation for placement of central line. In discussion with the patient at bedside, she reports that she has had 3 previous ports that have all failed and been removed. Most recent port was to the LEFT-sided chest. She reports that she has had a central line placed in the past. She is agreeable to central line placement. Unfortunately, during evaluation with ultrasound, I am unable to visualize any significant internal jugular veins even with the utilization of the Trendelenburg position. I am able to visualize small what appear to be external jugular vessels. Patient subclavian sites are with prior surgical scars. I did attempt to evaluate the patient for possible peripheral access in the upper extremities, however the patient has a diffuse red rash with moderate edema to her extremities which precludes peripheral access placement. I did review the patient's groin, which unfortunately has an even worsening beefy red rash with blistering and developing bullae as well. Unfortunately, this patient's access is going to be extremely difficult and limited secondary to her prior history of failed vascular access attempts in the past. I did reach out to my attending physician for further guidance as my concern is the patient will likely need surgical access. He agrees, and recommends that patient may benefit from IR services for advanced placement of more permanent access as she will require ongoing intravenous therapies for an extended period of time. He does recommend that in the event the patient does rapidly decline clinically, we should attempt to use the patient's groin despite the rash in an effort for active resuscitation otherwise. Myself and hospitalist physician did speak with general surgery. He feels the patient would likely benefit from placement of access under fluoroscopy or other imaging modalities. It was agreed upon the patient should be transferred with IR level capabilities. Patient is still with peripheral access in the LEFT hand. To this point, she is mainly requiring IV fluids. Certainly, if she were to decompensate between now and transfer time, we should certainly be reconsulted for MIRELA versus CVL placement in the patient's poor access site of her groin. Thank you for allowing us to contribute to the care of this patient. Please reconsult as needed. History of Present Illness Attending Physician: Lisa Malik MD History of Present Illness Patient is a 51-year-old female with an extensive past medical history presenting to the emergency department after being found down on the ground. Patient has concerning rash throughout her body as well. Concerns for sepsis. She was started on broad-spectrum antibiotics and IV fluids. Blood pressures were initially soft, however had been doing well with IV fluids alone. Unfortunately, given patient's diffuse rash, IV access was limited to the LEFT hand. I was approached by hospitalist service and asked to evaluate the patient for possible central line placement given need for multiple drips and little to no peripheral access. Patient has a history complicated by failed Mediport's x3 with most recent port being removed secondary to infection. Allergies Allergy/AdvReac Type Severity Reaction Status Date / Time iron dextran complex Allergy Severe SOB, heart Verified 10/14/21 17:14 racing (see comments) cat dander Allergy Intermediate eye Verified 10/14/21 17:14 watering ceftriaxone Allergy Intermediate Hives Verified 10/14/21 17:14 ciprofloxacin Allergy Intermediate lips Verified 10/14/21 17:14 burning/peeling doxycycline Allergy Intermediate hives, Verified 10/14/21 17:14 vomiting latex Allergy Intermediate mouth Verified 10/14/21 17:14 hives/burning sensation Penicillins Allergy Intermediate Hives Verified 10/14/21 17:14 Quinolones Allergy Intermediate Hives Verified 02/23/21 17:22 Sulfa (Sulfonamide Allergy Intermediate hives Verified 10/14/21 17:14 Antibiotics) Aminoglycosides Allergy Unknown unknown Verified 10/14/21 17:14 reaction tobramycin AdvReac Severe blindness Verified 10/14/21 17:14 citalopram AdvReac Mild restlessnes Verified 10/14/21 17:14 s Ferric Oxide Allergy Intermediate hives (see Uncoded 02/23/21 17:22 comments) Home Medications Medication Instructions Recorded Confirmed Type pantoprazole 40 mg tablet,delayed 40 mg PO BID 01/29/18 10/14/21 History release (Protonix) gabapentin 400 mg capsule 400 mg PO TID 11/18/18 10/14/21 History fexofenadine 180 mg tablet 180 mg PO DAILY 09/22/19 10/14/21 History (Maame Allergy) lorazepam 1 mg tablet 0.5 - 1 mg PO TID PRN 04/12/20 10/14/21 History cyclobenzaprine 10 mg tablet 10 mg PO BID PRN 09/01/20 10/14/21 History promethazine 25 mg tablet 25 mg PO Q8H PRN 09/01/20 10/14/21 History furosemide 40 mg tablet 40 mg PO DAILY #30 tab 08/03/21 10/14/21 Rx abaloparatide (Tymlos) 80 mcg SUBCUT DAILY 10/14/21 10/14/21 History acetaminophen 325 mg tablet 650 mg PO Q6 PRN 10/14/21 10/14/21 History albuterol sulfate 90 mcg/actuation 2 puff INHALATION QID PRN 10/14/21 10/14/21 History aerosol inhaler lidocaine 4 % topical patch 1 patch TOPICAL BID 10/14/21 10/14/21 History potassium chloride 10 mEq 20 meq PO DAILY 10/14/21 10/14/21 History tablet,extended release(part/cryst) trazodone 50 mg tablet 50 mg PO HS 10/14/21 10/14/21 History white petrolatum (White Petroleum 1 applic TOPICAL UD PRN 10/14/21 10/14/21 History Jelly) Patient History Medical History (Updated 10/15/21 @ 06:33 by Sergio Alexis PA-C) Anemia hx of blood transfusion (post-operatively 10/2018) Anxiety 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 Lanza Surgical History H/O foot surgery RT HEEL SURGERY X 2 (HARDWARE INTACT) TOE CORRECTION X 3 (PINS INTACT ON RT FOOT) H/O shoulder surgery RT HUMERUS FX REPAIRED (HARDWARE INTACT) H/O wisdom tooth extraction H/O wrist surgery LEFT WRIST X 2 SURGERIES History of cholecystectomy History of colonoscopy History of esophagogastroduodenoscopy (EGD) History of gastrectomy secondary to PUD (OVER 10 YEARS AGO) History of hand surgery LEFT HAND FINGER REPAIR History of hysterectomy History of vascular access device MEDIPORT INTACT Family History Father Diabetes Mother Von Willebrand disease Grandmother (Paternal) Family hx of colon cancer Social History Smoking Status: Never smoker Second Hand Exposure: No; Hx Alcohol Use: Yes Alcohol type: wine Hx Substance Use: No Preferred Language: Micronesian Communication Ability: Effective Rn New Grad Required: No Beliefs That Will Affect Care: None marital status: Legally Current Living Situation: Other Current Living Situation Comment: lives with neighbor because hot water heater is out current occupational status: disabled How many Children do You have: 2 Other Information That Helps Us Care for You: No Feels Safe at Home: No Is there a partner from a previous relationship who is making you feel unsafe now?: Yes (lives with neighbor feels unsafe, states he drinks and smokes) Any Concerns about Your Family Situation: No Would You Like to Speak to Someone About Your Situation: No Safety Concerns: Afraid for Self Assistive Devices: None Review of Systems Review of Systems: All systems reviewed & are unremarkable except as noted in Subjective Physical Exam Physical Exam: VITAL SIGNS - Vital signs and nursing notes were reviewed. GENERAL - 51-year-old female appearing older than her stated age who is in no acute distress. Communicates well with provider and answers questions appropriately. SKIN - Diffuse erythematous rash with areas of blistering and developing bullae noted throughout the upper and lower extremities as well as the groin and trunk. NECK - Neck with FROM. Supple to palpation. No nuchal rigidity. LUNGS - Chest wall symmetric without accessory muscle use, intercostals retractions, or central cyanosis. Normal vesicular breath sounds CTA B/L. No wheezes, rales, or rhonchi appreciated. CARDIAC - RRR with S1/S2. No murmur, rubs, or gallops appreciated. ABDOMEN - Abdominal contour obese without pulsations or visible masses. BS normoactive all four quadrants. No tenderness, palpable masses, hepatosplenomegaly, or ascites noted. EXTREMITIES -diffuse, beefy red rash noted to the upper and lower extremities bilaterally. Areas of serosanguineous oozing. Extremities edematous. Results & Data Results & Data ([place]) Vital Signs (Past 12 Hours) Vital Signs Temp Pulse Pulse Resp BP BP Pulse Ox 10/15/21 05:09 84/59 L 10/15/21 04:13 92/56 L 97 10/15/21 03:44 34.4 C L 98 H 18 89/53 L 97 10/15/21 03:10 72/37 L 10/15/21 01:44 33.9 C L 10/15/21 01:26 91 H 10/15/21 00:34 95 H 18 110/67 99 10/14/21 23:42 95 H 16 100/61 99 10/14/21 23:09 99 10/14/21 23:08 36.1 C L 96 H 16 92/57 L 98 10/14/21 22:00 96 10/14/21 21:31 95 H 16 111/64 98 10/14/21 21:30 99 10/14/21 21:00 95 H 12 97/60 L 100 10/14/21 20:33 95 H 16 99 10/14/21 20:00 97 H 14 114/61 97 10/14/21 19:01 99 H 16 102/62 98 10/14/21 19:00 16 98 Coding Level of Care Code 57601 Inpt Consult Level 3 Diagnoses Need for intravenous access Time Spent (min) 45
[2021-10-15] MEDS ORDERED: VANCOMYCIN HCL 1,000 MG in SODIUM CHLORIDE 0.9% 250 ML IV SCH (08:00)
[2021-10-15] MEDS ORDERED: FEXOFENADINE HCL 180 MG TAB PO SCH (09:00)
[2021-10-15] MEDS ORDERED: NON-FORMULARY MEDICATION (Lidocaine 4 % Adhesive Patch,Medicated) TOP SCH (09:00)
[2021-10-15] MEDS ORDERED: GABAPENTIN 400 MG CAP PO SCH (09:00)
--- NOTE | 2021-10-15 10:56 | Pharmacy Report ---
Pharmacy PK ABX Note - Date of Service October 15, 2021 - Assessment and Plan Assessment 51 year old F receiving Vancomycin and Aztreonam for treatment of septic shock likely due to a skin and soft tissue infection. * Multiple abx allergies. * Presents with tachycardia and hypotension requiring vasopressor support (Norepinephrine). Afebrile. Leukocytosis improved today (11k-->7.4k). Renal fxn improving. Initial lactate of 7.6, improved to 3.2 this morning. * Blood cultures are pending. * Patient is to be transferred to IR capable facility for line placement. Plan Vancomycin * Loading dose: 1250 mg IV x 1 * Maintenance dose: 1000 mg IV every 12 hours * Regimen is predicted to achieve target AUC/VIANCA of 400-600 mg/L.hr * Trough level ordered for: 10/16/21 Aztreonam * 2000 mg IV every 8 hours Pharmacy will continue to follow and will adjust dose/frequency as necessary. Thank you. Pharmacy has transitioned to AUC monitoring for vancomycin. AUC/VIANCA is the preferred PK/PD target and is associated with decreased risk of nephrotoxicity compared to traditional trough targets.
== END 2021-10-15 12:26 | disposition short-term general hospital (02) | DRG 871 ==
LOC: ED 15:12 → 2E 23:08 → 1E 10-15 06:41

== ENCOUNTER 2021-11-03 08:17 | Inpatient (IN) ==
[2021-11-03] MEDS ORDERED: SODIUM CHLORIDE 0.9% 1000ML 1,000 ML IV ONE (08:55)
--- NOTE | 2021-11-03 09:20 | XRay Report ---
XR chest 1V portable CLINICAL HISTORY: SEPSIS TECHNIQUE: Single frontal radiograph of the chest was obtained. Comparison: Comparison is made to chest radiograph 10/14/2021 FINDINGS: No lines and tubes are seen. The cardiomediastinal silhouette is normal. Prominence and cephalization of the vasculature is seen. Faint airspace opacity is in the left lower lung, increased from prior e xam. No evidence of pleural effusion or pneumothorax. IMPRESSION: Faint left lower lung airspace opacity may represent atelectasis, pneumonia, and/or aspiration. There is mild pulmonary edema. ACT 112: Negative or not required by law. Electronically signed by: Atilio Magana M.D. 11/03/2021 9:18 AM
--- NOTE | 2021-11-03 09:20 | Emergency Department Note ---
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 Instructions Interventions: ED Discharge Assessment Last Done: 11/03/21 17:35 Discharge Problem: UTI (urinary tract infection) Qualifiers: Urinary tract infection type: site unspecified Hematuria presence: with hematuria Qualified Code(s): N39.0 - Urinary tract infection, site not specified Left lower lobe pneumonia Qualifiers: Pneumonia type: due to unspecified organism Qualified Code(s): J18.9 - Pneumonia, unspecified organism
[2021-11-03 11:00] LABS: Basophils # (auto) 0.07 K/uL (0-0.2); Basophils % (auto) 0.4 %; Eosinophils # (auto) 0.07 K/uL (0-0.5); Eosinophils % (auto) 0.4 %; Hematocrit (blood only) 27.6 % (37-47); Immature Granulocytes # (auto) 0.05 K/uL (0.00-0.02); Immature Granulocytes % (auto) 0.3 %; Mean Corpuscular Hemoglobin 32.7 pg (25-34); Mean Corpuscular Hgb Conc 32.6 g/dL (32-36); Mean Corpuscular Volume 100.4 fL (80-100); Mean Platelet Volume 11.2 fL (7.4-10.4); Monocytes % (auto) 3.6 %; Neutrophils # (auto) 14.79 K/uL (1.4-6.5); Neutrophils % (auto) 89.3 %; Platelet Count 391 K/uL (130-400); RDW Coefficient of Variation 20.3 % (11.5-14.5); Red Blood Count 2.75 M/uL (4.2-5.4); White Blood Count 16.58 K/uL (4.8-10.8)
[2021-11-03 11:05] LABS: INR 1.5 (0.9-1.1); Partial Thromboplastin Ratio 1.5; Partial Thromboplastin Time 41.6 Seconds (21.0-31.0); Prothrombin Time 15.4 Seconds (9.0-12.0)
[2021-11-03 11:34] LABS: Troponin I High Sensitivity 7.4 pg/ml (0-14)
[2021-11-03 11:47] LABS: Alanine Aminotransferase 18 U/L (7-52); Albumin Globulin Ratio 1.4 (0.9-2); Albumin Level 3.2 gm/dl (3.4-5.0); Alkaline Phosphatase 181 U/L (34-104); Anion Gap 7 (3-11); Bilirubin,Total 2.9 mg/dl (0.2-1.0); Blood Urea Nitrogen 5 mg/dl (6-23); Calcium 8.3 mg/dl (8.5-10.1); Carbon Dioxide 25 mmol/L (21-32); Chloride 106 mmol/L (98-107); Globulin 2.3 gm/dl (2.5-4.0); Glucose 93 mg/dl (70-99(Fasting)); Sodium 138 mmol/L (136-145); Total Protein 5.5 gm/dl (6.0-8.3)
[2021-11-03 11:49] LABS: Appearance Urine Cloudy (Clear); Bacteria Urine Automated 4+ (Negative); Bilirubin Urine Negative (Negative); Blood Urine Negative (Negative); Color Urine Dark Yellow; Glucose Urine UA Negative (Negative); Ketones Urine Negative (Negative); Leukocyte Esterase Urine 1+ (Negative); Nitrite Urine Negative (Negative); Protein Urine Negative (Negative); RBC Urine Automated 0-4 /hpf (0-4); Specific Gravity Urine 1.012 (1.000-1.030); Urobilinogen Urine Negative (Negative); WBC Urine Automated >30 /hpf (0-5); pH Urine >= 9.0 (4.5-7.5)
[2021-11-03 12:05] LABS: Anisocytosis Present; Hypochromasia Present
[2021-11-03 12:18] LABS: BUN Creatinine Ratio 11.9 (10-20); Creatinine Clr Calc Pharmacy 146.7 ml/min; Est GFR (African American) 136.6 ml/min; Est GFR (Non-African American) 117.8 ml/min; Magnesium 1.9 mg/dl (1.7-2.4)
[2021-11-03 13:04] LABS: Potassium 3.9 mmol/L (3.5-5.1)
[2021-11-03] MEDS ORDERED: CEFEPIME 1,000 MG in SYRINGE 0 ML IV STA (13:43)
--- NOTE | 2021-11-03 14:12 | CT Scan Report ---
CT head/brain wo con CLINICAL HISTORY: right sided weakness Technique: Contiguous axial CT images of the head were acquired from the base of the skull to the annemarie bautista without intravenous contrast administration. Images were viewed in brain, subdural and bone [facility]. Automated dose lowering techniques and/or adjustment according to patient size were utilized for this exam. Comparison: None available at the time of this dictation. Findings: Areas of decreased attenuation are present in the periventricular and subcortical white matter bilate rally consistent with small vessel ischemic disease. Generalized cerebral atrophy with commensurate e nlargement of the ventricles, sulci, and cisterns is also present. There is no acute intracranial hem orrhage or evidence of acute territorial infarction. No shift of the midline structures, mass effect, or extra-axial abnormalities are shown. Atherosclerotic calcifications are present in the intracran ial segments of the internal carotid arteries. Imaged portions of the paranasal sinuses and mastoid air cells are clear. The orbits appear normal. There are no acute fractures of the calvaria or scalp swelling. Impression: No acute intracranial hemorrhage, no evidence of acute territorial infarction or other acute intracra nial disease process. ACT 112: Negative or not required by law. Electronically signed by: Atilio Magana M.D. 11/03/2021 2:11 PM
[2021-11-03] MEDS: SODIUM CHLORIDE 0.9% 500 ML IV SCH ×3 (14:17→22:03)
--- NOTE | 2021-11-03 14:24 | XRay Report ---
XR shoulder RT min 2V routine, XR humerus RT 2V CLINICAL HISTORY: fall TECHNIQUE: 3 views of the right shoulder and right humerus were obtained. Comparison: Comparison is made to right shoulder radiographs 10/14/2021 FINDINGS: Stable plate and screw fixation hardware is seen. Joint spaces are well-preserved. The overlying soft tissues are unremarkable. The visualized portions of the lungs are clear. There is suggestion of mil d pulmonary edema. IMPRESSION: 1. No evidence of acute osseous injury. Redemonstration of postsurgical changes of plate and screw f ixation about the humerus. 2. Suggestion of mild pulmonary edema. ACT 112: Negative or not required by law. Electronically signed by: Atilio Magana M.D. 11/03/2021 2:23 PM
[2021-11-03] MEDS ORDERED: MAGNESIUM HYDROXIDE SUSP 30 ML UDC PO PRN (16:06)
[2021-11-03] MEDS ORDERED: ACETAMINOPHEN 325 MG TAB PO PRN (16:06)
[2021-11-03] MEDS ORDERED: LORazepam 0.5 MG TAB PO PRN (16:14)
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
[2021-11-03] MEDS ORDERED: GABAPENTIN 1200MG ALCOHOL WITHDRAWAL LOAD PO STA (16:45)
[2021-11-03] MEDS ORDERED: LORazepam 1 MG in SYRINGE 0.5 ML IV PRN (16:45)
[2021-11-03] MEDS ORDERED: ATIVAN IV ALCOHOL WITHDRAWL IV PRN (16:45)
[2021-11-03] MEDS ORDERED: LORazepam 2 MG in SYRINGE 1 ML IV PRN (16:45)
[2021-11-03] MEDS: PROMETHAZINE HCL 25 MG TAB PO PRN (19:26)
--- NOTE | 2021-11-03 19:51 | XRay Report ---
XR chest 1V portable CLINICAL HISTORY: aspiration TECHNIQUE: Single frontal radiograph of the chest was obtained. Comparison: Comparison is made to chest radiograph 11/03/2021 FINDINGS: No lines and tubes are seen. The cardiomediastinal silhouette is normal. The lungs are clear. No evid ence of pleural effusion or pneumothorax. IMPRESSION: No acute chest disease. ACT 112: Negative or not required by law. Electronically signed by: Atilio Magana M.D. 11/03/2021 7:49 PM
[2021-11-03] MEDS ORDERED: GABAPENTIN 600 MG TAB PO ONE (20:00)
[2021-11-03] MEDS ORDERED: GABAPENTIN 400 MG CAP PO SCH (21:00)
[2021-11-03] MEDS: MUPIROCIN 2% OINT 22 GM TUBE EXT SCH (21:52)
[2021-11-03] MEDS: PANTOprazole 40 MG TAB PO SCH (21:53)
[2021-11-03] MEDS: TRIAMCINOLONE ACET 0.1% CR 15 GM TUBE TOP SCH (21:53)
[2021-11-03] MEDS: THIAMINE HCL 100 MG TAB PO SCH (22:02)
[2021-11-03] MEDS: FOLIC ACID 1 MG TAB PO SCH (22:02)
[2021-11-03] MEDS: CEFEPIME 2,000 MG in SYRINGE 0 ML IV SCH (22:56)
[2021-11-04] MEDS: SODIUM CHLORIDE 0.9% 500 ML IV SCH ×2 (02:04→06:05)
[2021-11-04] MEDS: GABAPENTIN 600 MG TAB PO SCH ×4 (02:09→23:45)
[2021-11-04 05:30] LABS: Amphetamines+Metham, Urine Neg (Neg); Barbiturates, Urine Neg (Neg); Benzodiazepine, Urine Neg (Neg); Cocaine, Urine Neg (Neg); MDMA (Ecstacy), Urine Neg (Neg); Methadone, Urine Neg (Neg); Opiate, Urine Neg (Neg); Phencyclidine, Urine Neg (Neg)
[2021-11-04] MEDS ORDERED: LORazepam 0.5 MG TAB PO STA (06:20)
[2021-11-04 08:30] LABS: INR 1.6 (0.9-1.1); Prothrombin Time 16.2 Seconds (9.0-12.0)
[2021-11-04 08:31] LABS: Hematocrit (blood only) 24.8 % (37-47); Mean Corpuscular Hemoglobin 32.5 pg (25-34); Mean Corpuscular Hgb Conc 32.3 g/dL (32-36); Mean Corpuscular Volume 100.8 fL (80-100); Mean Platelet Volume 10.9 fL (7.4-10.4); Platelet Count 286 K/uL (130-400); RDW Coefficient of Variation 19.5 % (11.5-14.5); RDW Standard Deviation 71.8 fL (36.4-46.3); Red Blood Count 2.46 M/uL (4.2-5.4)
[2021-11-04] MEDS: MUPIROCIN 2% OINT 22 GM TUBE EXT SCH ×2 (08:32→21:12)
[2021-11-04] MEDS: FEXOFENADINE HCL 180 MG TAB PO SCH (08:32)
[2021-11-04] MEDS: FOLIC ACID 1 MG TAB PO SCH (08:32)
[2021-11-04] MEDS: TRIAMCINOLONE ACET 0.1% CR 15 GM TUBE TOP SCH ×2 (08:33→21:12)
[2021-11-04] MEDS: PANTOprazole 40 MG TAB PO SCH ×2 (08:33→21:12)
[2021-11-04] MEDS: THIAMINE HCL 100 MG TAB PO SCH (08:33)
[2021-11-04 08:36] LABS: BUN Creatinine Ratio 13.3 (10-20); Calcium 8.1 mg/dl (8.5-10.1); Creatinine Clr Calc Pharmacy 131.6 ml/min; Est GFR (African American) 133.5 ml/min; Est GFR (Non-African American) 115.2 ml/min; Magnesium 1.8 mg/dl (1.7-2.4); Phosphorus 2.8 mg/dl (2.5-4.9); Potassium 3.8 mmol/L (3.5-5.1)
[2021-11-04] MEDS: PROMETHAZINE HCL 25 MG TAB PO PRN ×2 (08:37→17:01)
[2021-11-04] MEDS ORDERED: SODIUM CHLORIDE 0.9% 1000ML 1,000 ML IV SCH (10:00)
[2021-11-04] MEDS: CYCLOBENZAPRINE HCL 10 MG TAB PO PRN (10:03)
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
[2021-11-04] MEDS: CEFEPIME 2,000 MG in SYRINGE 0 ML IV SCH ×2 (11:34→23:49)
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
[2021-11-04] MEDS ORDERED: ACETAMINOPHEN 325 MG TAB PO PRN (15:17)
[2021-11-04 15:29] LABS: Hematocrit (blood only) 27.8 % (37-47); Hemoglobin 8.8 g/dL (12.0-16.0)
[2021-11-04] MEDS: oxyCODONE/ACETAMINOPHEN 5mg/325mg TAB PO PRN ×2 (15:31→23:45)
[2021-11-04] MEDS: LORazepam 0.5 MG TAB PO PRN ×2 (15:31→23:45)
--- NOTE | 2021-11-04 17:59 | XRay Report ---
XR hip RT min 2V CLINICAL HISTORY: Right hip pain following fall. COMPARISON: Pelvis and right hip radiographs and CT of the abdomen and pelvis October 14, 2021. FINDINGS: Alignment of the right hip arthroplasty is anatomic. No periprosthetic fracture. Heterotop ic ossification is noted. Old bilateral pubic ring fractures are incidentally noted. A probable closu re device within the sigmoid colon is again noted. IMPRESSION: 1. Intact total right hip arthroplasty. No periprosthetic fracture. 2. Old bilateral pubic ring fractures. ACT 112: Negative or not required by law. Electronically signed by: Wilfrid Goldsmith M.D. 11/04/2021 5:57 PM
[2021-11-04] MEDS: TOPIRAMATE 25 MG TAB PO SCH (21:12)
[2021-11-05] MEDS: CYCLOBENZAPRINE HCL 10 MG TAB PO PRN (06:05)
[2021-11-05] MEDS: PROMETHAZINE HCL 25 MG TAB PO PRN (06:05)
[2021-11-05 07:03] LABS: Adenovirus F 40/41 PCR Not Detected (NotDetected); Astrovirus PCR Not Detected (NotDetected); Campylobacter PCR Not Detected (NotDetected); Clostridium diff Toxin A/B PCR Not Detected (NotDetected); Cryptosporidium PCR Not Detected (NotDetected); Cyclospora cayetanensis PCR Not Detected (NotDetected); Entamoeba histolytica PCR Not Detected (NotDetected); Enteroaggregative E.coli(EAEC) Not Detected (NotDetected); Enteropathogenic E.coli (EPEC) Not Detected (NotDetected); Enterotoxigenic E.coli (ETEC) Not Detected (NotDetected); Giardia lamblia PCR Not Detected (NotDetected); Norovirus GI/GII PCR Not Detected (NotDetected); Plesiomonas shigelloides PCR Not Detected (NotDetected); Rotavirus A PCR Not Detected (NotDetected); Salmonella PCR Not Detected (NotDetected); Sapovirus PCR Not Detected (NotDetected); Shiga-like Toxin E.coli (STEC) Not Detected (NotDetected); Shigella/Enteroinvasive E.coli Not Detected (NotDetected); Vibrio cholerae PCR Not Detected (NotDetected); Vibrio species PCR Not Detected (NotDetected); Yersinia enterocolitica PCR Not Detected (NotDetected)
[2021-11-05] MEDS: GABAPENTIN 600 MG TAB PO SCH ×2 (09:15→21:03)
[2021-11-05] MEDS: THIAMINE HCL 100 MG TAB PO SCH ×2 (09:15→09:21)
[2021-11-05] MEDS: FEXOFENADINE HCL 180 MG TAB PO SCH (09:15)
[2021-11-05] MEDS: MUPIROCIN 2% OINT 22 GM TUBE EXT SCH ×2 (09:16→21:05)
[2021-11-05] MEDS: PANTOprazole 40 MG TAB PO SCH ×2 (09:16→21:03)
[2021-11-05] MEDS: FOLIC ACID 1 MG TAB PO SCH (09:16)
[2021-11-05] MEDS: TRIAMCINOLONE ACET 0.1% CR 80 GM TUBE TOP SCH ×2 (09:17→21:05)
--- NOTE | 2021-11-05 09:28 | Electrocardiogram Report ---
Test Reason : Blood Pressure : / mmHG Vent. Rate : 139 BPM Atrial Rate : 139 BPM P-R Int : 124 ms QRS Dur : 056 ms QT Int : 290 ms P-R-T Axes : 026 056 102 degrees QTc Int : 441 ms Poor data quality, interpretation may be adversely affected Sinus tachycardia Low voltage QRS Nonspecific T wave abnormality Abnormal ECG When compared with ECG of 14-OCT-2021 15:46, Nonspecific T wave abnormality no longer evident in Anterior leads Confirmed by Agus Rider ([id number]) on 11/05/2021 9:27:48 AM Referred By: REFERRED SELF Confirmed By:Agus Rider
[2021-11-05] MEDS: CEFEPIME 2,000 MG in SYRINGE 0 ML IV SCH ×2 (12:05→23:52)
[2021-11-05] MEDS: SODIUM CHLORIDE 0.9% 500 ML IV SCH ×2 (12:07→19:06)
[2021-11-05] MEDS: LIDOCAINE 5% 1 PATCH TD SCH (12:16)
--- NOTE | 2021-11-05 12:59 | Communication Note ---
Date of Service: November 05, 2021 Patient seen and examined while on rounds. Patient lying supine in her hospital room bed sleeping. Patient arouses easily with verbal stimulation. Patient states right shoulder and right hip slightly improved compared to yesterday's examination on 11/04/2021 during initial consultation. Physical exam: Right shoulder with well-healed remote surgical incision. Sensation intact. Mild to moderate discomfort with palpation around the greater tuberosity and the anterior shoulder. No tenderness over the clavicle or the acromion. Active and passive range of motion of the shoulder on the right are within normal limits. Skin is warm/dry and intact. Radial/ulnar and median nerve sensory and motor function are intact. Radial pulse 2 out of 4. Right hip remote incision well-healed. Trace ecchymosis over the greater trochanter. Mild to moderate tenderness to palpation of the right greater trochanter. Active and passive range of motion of the right hip within normal limits. No clicking, catching or clunking of the hip. FADIR negative. Fabere negative. Leg lengths within normal limits. Radiographs of the right shoulder previously reviewed. Radiographs of the right hip reviewed demonstrate stable cemented hip arthroplasty without evidence of subsidence. No acute fractures. Impression: Right shoulder contusion, right hip contusion, right shoulder pain, right hip pain, status post fall. Recommendation: Alternate heat and ice to affected areas as needed. OTC Tylenol or ibuprofen if approved by medical service and requested by fabi yen. Weightbearing with walker and assist x1 until patient balance issues are improved and after alcohol detox is completed. Follow-up as needed. Thank for the opportunity to consult in care of this patient.
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
[2021-11-05] MEDS: ACETAMINOPHEN 325 MG TAB PO SCH ×2 (17:23→23:52)
[2021-11-05] MEDS: LORazepam 0.5 MG TAB PO PRN (17:31)
[2021-11-05] MEDS: oxyCODONE/ACETAMINOPHEN 5mg/325mg TAB PO PRN (21:02)
[2021-11-05] MEDS: TOPIRAMATE 25 MG TAB PO SCH (21:03)
[2021-11-05] MEDS: DICLOFENAC SOD 1% GEL 100 GM TUBE EXT SCH (21:05)
[2021-11-06] MEDS ORDERED: diphenhydrAMINE Capsule 25 MG CAP PO ONE (00:02)
[2021-11-06] MEDS: ACETAMINOPHEN 325 MG TAB PO SCH ×5 (00:25→23:30)
[2021-11-06] MEDS: SODIUM CHLORIDE 0.9% 500 ML IV SCH ×2 (02:30→09:30)
[2021-11-06] MEDS: oxyCODONE/ACETAMINOPHEN 5mg/325mg TAB PO PRN ×2 (03:39→18:27)
[2021-11-06 06:31] LABS: Hematocrit (blood only) 24.2 % (37-47); Hemoglobin 7.9 g/dL (12.0-16.0); Mean Corpuscular Hemoglobin 33.1 pg (25-34); Mean Corpuscular Hgb Conc 32.6 g/dL (32-36); Mean Corpuscular Volume 101.3 fL (80-100); Mean Platelet Volume 10.7 fL (7.4-10.4); Platelet Count 222 K/uL (130-400); RDW Coefficient of Variation 18.4 % (11.5-14.5); RDW Standard Deviation 68.8 fL (36.4-46.3); Red Blood Count 2.39 M/uL (4.2-5.4); White Blood Count 7.38 K/uL (4.8-10.8)
[2021-11-06] MEDS: ALBUTEROL HFA 8 GM INHALER INH PRN ×2 (06:53→18:05)
[2021-11-06 06:59] LABS: BUN Creatinine Ratio 15.9 (10-20); Calcium 7.6 mg/dl (8.5-10.1); Est GFR (African American) 119.5 ml/min; Est GFR (Non-African American) 103.1 ml/min; Magnesium 1.8 mg/dl (1.7-2.4); Phosphorus 2.6 mg/dl (2.5-4.9); Potassium 3.4 mmol/L (3.5-5.1)
[2021-11-06 07:01] LABS: INR 1.5 (0.9-1.1); Partial Thromboplastin Ratio 1.6; Prothrombin Time 15.8 Seconds (9.0-12.0)
[2021-11-06 07:12] LABS: Thyroid Stimulating Hormone 7.509 uIu/ml (0.300-4.500)
[2021-11-06 07:17] LABS: Partial Thromboplastin Time 45.2 Seconds (21.0-31.0)
[2021-11-06] MEDS: PROMETHAZINE HCL 25 MG TAB PO PRN (07:39)
[2021-11-06] MEDS: LORazepam 0.5 MG TAB PO PRN ×2 (07:40→21:37)
[2021-11-06] MEDS ORDERED: POTASSIUM CHLORIDE CRTAB 20 MEQ TABCR PO ONE (07:46)
[2021-11-06 07:57] LABS: T4 Free Thyroxine 0.99 ng/dl (0.61-1.60)
[2021-11-06] MEDS: GABAPENTIN 600 MG TAB PO SCH (09:30)
[2021-11-06] MEDS: FEXOFENADINE HCL 180 MG TAB PO SCH (09:30)
[2021-11-06] MEDS: FOLIC ACID 1 MG TAB PO SCH (09:30)
[2021-11-06] MEDS: TRIAMCINOLONE ACET 0.1% CR 80 GM TUBE TOP SCH ×2 (09:31→21:13)
[2021-11-06] MEDS: LIDOCAINE 5% 1 PATCH TD SCH (09:32)
[2021-11-06] MEDS: MUPIROCIN 2% OINT 22 GM TUBE EXT SCH ×2 (09:32→21:14)
[2021-11-06] MEDS: DICLOFENAC SOD 1% GEL 100 GM TUBE EXT SCH ×3 (09:32→21:14)
[2021-11-06] MEDS: THIAMINE HCL 100 MG TAB PO SCH (09:33)
[2021-11-06] MEDS: PANTOprazole 40 MG TAB PO SCH ×2 (09:48→21:17)
[2021-11-06] MEDS: NITROFURANTOIN MONOHYDRATE 100 MG CAP PO SCH ×2 (12:30→21:18)
[2021-11-06] MEDS: PROMETHAZINE HCL 25 MG TAB PO SCH ×3 (12:33→21:37)
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
[2021-11-06 14:29] LABS: Hematocrit (blood only) 24.1 % (37-47); Hemoglobin 7.5 g/dL (12.0-16.0)
[2021-11-06 15:04] LABS: Ferritin 246.8 ng/ml (8-388)
[2021-11-06 15:07] LABS: Iron 63 mcg/dl (35-150); Unsaturated Iron Binding Cap < 55 mcg/dl (155-355)
[2021-11-06] MEDS: TOPIRAMATE 25 MG TAB PO SCH (21:17)
[2021-11-06] MEDS: HEPARIN SOD 5,000 UNIT/0.5 ML VIAL SQ SCH (21:18)
[2021-11-07] MEDS: ACETAMINOPHEN 325 MG TAB PO SCH ×4 (06:05→23:30)
[2021-11-07] MEDS: oxyCODONE/ACETAMINOPHEN 5mg/325mg TAB PO PRN ×4 (06:09→21:46)
[2021-11-07] MEDS ORDERED: GABAPENTIN 600 MG TAB PO SCH (08:00)
[2021-11-07] MEDS: LIDOCAINE 5% 1 PATCH TD SCH (08:26)
[2021-11-07] MEDS: TRIAMCINOLONE ACET 0.1% CR 80 GM TUBE TOP SCH ×2 (08:26→21:49)
[2021-11-07] MEDS: MUPIROCIN 2% OINT 22 GM TUBE EXT SCH ×2 (08:30→21:49)
[2021-11-07] MEDS: DICLOFENAC SOD 1% GEL 100 GM TUBE EXT SCH ×3 (08:31→21:48)
[2021-11-07] MEDS: NITROFURANTOIN MONOHYDRATE 100 MG CAP PO SCH ×2 (08:33→21:50)
[2021-11-07] MEDS: PANTOprazole 40 MG TAB PO SCH ×2 (08:33→21:50)
[2021-11-07] MEDS: HEPARIN SOD 5,000 UNIT/0.5 ML VIAL SQ SCH ×2 (08:33→21:51)
[2021-11-07] MEDS: FEXOFENADINE HCL 180 MG TAB PO SCH (08:34)
[2021-11-07] MEDS: THIAMINE HCL 100 MG TAB PO SCH (08:34)
[2021-11-07] MEDS: FOLIC ACID 1 MG TAB PO SCH (08:35)
[2021-11-07] MEDS: CYCLOBENZAPRINE HCL 10 MG TAB PO PRN (08:39)
[2021-11-07] MEDS: PROMETHAZINE HCL 25 MG TAB PO SCH ×4 (08:39→21:48)
[2021-11-07] MEDS: LORazepam 0.5 MG TAB PO PRN ×3 (08:39→21:48)
[2021-11-07 08:43] LABS: Hematocrit (blood only) 24.6 % (37-47); Hemoglobin 7.9 g/dL (12.0-16.0); Mean Corpuscular Hemoglobin 32.6 pg (25-34); Mean Corpuscular Hgb Conc 32.1 g/dL (32-36); Mean Corpuscular Volume 101.7 fL (80-100); Mean Platelet Volume 11.1 fL (7.4-10.4); Platelet Count 254 K/uL (130-400); RDW Coefficient of Variation 18.7 % (11.5-14.5); RDW Standard Deviation 70.3 fL (36.4-46.3); Red Blood Count 2.42 M/uL (4.2-5.4)
[2021-11-07 08:58] LABS: BUN Creatinine Ratio 15.8 (10-20); Calcium 7.6 mg/dl (8.5-10.1); Creatinine Clr Calc Pharmacy 103.9 ml/min; Est GFR (African American) 123.5 ml/min; Est GFR (Non-African American) 106.6 ml/min; Potassium 3.9 mmol/L (3.5-5.1)
[2021-11-07] MEDS ORDERED: ERGOCALCIFEROL 50,000 UNITS 1250 MCG CAP PO SCH (09:00)
[2021-11-07] MEDS: FUROSEMIDE INJ 20 MG/2 ML VIAL IV ONE ×2 (12:10→13:23)
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
--- NOTE | 2021-11-07 21:18 | Ultrasound Report ---
BILATERAL UPPER EXTREMITY VENOUS DOPPLER ULTRASOUND CLINICAL HISTORY: swelling. r/o DVT COMPARISON STUDY: Right upper extremity venous Doppler ultrasound November 27, 2018. TECHNIQUE: Sonography of the deep venous systems of the bilateral upper extremities was performed. FINDINGS: No deep venous thrombus is identified within the bilateral upper extremities. There is reve rsal of flow within the right axillary and subclavian veins. Bilateral cephalic veins are suboptimall y assessed due to edema. IMPRESSION: 1. No deep venous thrombus identified within the bilateral upper extremities. 2. Reversal of flow within the right axillary and subclavian veins. This may be due to chronic centra l vessel occlusion which was shown on earlier chest CT of June 22, 2020. ACT 112: Negative or not required by law. Electronically signed by: Wilfrid Goldsmith M.D. 11/07/2021 9:15 PM
[2021-11-07] MEDS: ALBUTEROL HFA 8 GM INHALER INH PRN (21:28)
--- NOTE | 2021-11-07 21:38 | Ultrasound Report ---
RIGHT LOWER EXTREMITY VENOUS DOPPLER CLINICAL HISTORY: swelling r/o DVT COMPARISON STUDY: Bilateral lower extremity venous Doppler ultrasound June 23, 2019. TECHNIQUE: Sonography of the deep venous system of the right lower extremity was performed. Compress ion and augmentation were evaluated. FINDINGS: The right common femoral, superficial femoral and popliteal veins were compressible. Augme ntation was normal. Flow was shown within the deep calf vessels. IMPRESSION: No evidence of deep venous thrombus within the right lower extremity. ACT 112: Negative or not required by law. Electronically signed by: Wilfrid Goldsmith M.D. 11/07/2021 9:37 PM
[2021-11-07] MEDS: TOPIRAMATE 25 MG TAB PO SCH (21:51)
[2021-11-08] MEDS: PROMETHAZINE HCL 25 MG TAB PO SCH ×4 (03:58→21:06)
[2021-11-08] MEDS: LORazepam 0.5 MG TAB PO PRN ×4 (03:58→23:10)
[2021-11-08] MEDS: ACETAMINOPHEN 325 MG TAB PO SCH ×4 (05:00→23:10)
[2021-11-08 07:55] LABS: Hematocrit (blood only) 22.5 % (34.1-44.9); Hemoglobin 7.4 g/dl (12.0-16.0); Mean Corpuscular Hemoglobin 32.7 pg (25.0-34.0); Mean Corpuscular Hgb Conc 32.9 g/dL (32.0-36.0); Mean Corpuscular Volume 99.6 fL (80.0-100.0); Platelet Count 217 K/uL (130-400); RDW Coefficient of Variation 18.5 % (11.5-14.5); RDW Standard Deviation 66.4 fL (36.4-46.3); Red Blood Count 2.26 M/uL (3.93-5.22)
[2021-11-08] MEDS: oxyCODONE/ACETAMINOPHEN 5mg/325mg TAB PO PRN ×2 (08:08→17:10)
[2021-11-08] MEDS: CYCLOBENZAPRINE HCL 10 MG TAB PO PRN (08:08)
[2021-11-08] MEDS: DICLOFENAC SOD 1% GEL 100 GM TUBE EXT SCH ×3 (08:09→21:02)
[2021-11-08] MEDS: TRIAMCINOLONE ACET 0.1% CR 80 GM TUBE TOP SCH ×2 (08:09→21:06)
[2021-11-08] MEDS: MUPIROCIN 2% OINT 22 GM TUBE EXT SCH ×2 (08:10→21:03)
[2021-11-08] MEDS: NITROFURANTOIN MONOHYDRATE 100 MG CAP PO SCH ×2 (08:10→21:04)
[2021-11-08] MEDS: PANTOprazole 40 MG TAB PO SCH ×2 (08:10→21:04)
[2021-11-08] MEDS: HEPARIN SOD 5,000 UNIT/0.5 ML VIAL SQ SCH ×3 (08:14→21:15)
[2021-11-08] MEDS: FEXOFENADINE HCL 180 MG TAB PO SCH (08:14)
[2021-11-08] MEDS: THIAMINE HCL 100 MG TAB PO SCH (08:14)
[2021-11-08] MEDS: LIDOCAINE 5% 1 PATCH TD SCH (08:14)
[2021-11-08] MEDS: FOLIC ACID 1 MG TAB PO SCH (08:14)
[2021-11-08 08:19] LABS: BUN Creatinine Ratio 20.4 (10-20); Calcium 7.8 mg/dl (8.5-10.1); Creatinine Clr Calc Pharmacy 120.8 ml/min; Est GFR (African American) 129.8 ml/min; Magnesium 1.9 mg/dl (1.7-2.4); Potassium 3.7 mmol/L (3.5-5.1)
[2021-11-08] MEDS ORDERED: SODIUM CHLORIDE 0.9% 250 ML IV PRN ×2 (09:46→09:47)
[2021-11-08] MEDS ORDERED: diphenhydrAMINE 50 MG/ML VIAL IV ONE (09:47)
[2021-11-08] MEDS ORDERED: ACETAMINOPHEN 325 MG TAB PO ONE (09:47)
[2021-11-08] MEDS ORDERED: FUROSEMIDE 40 MG/4 ML VIAL IV SCH (11:00)
[2021-11-08] MEDS: AMMONIUM LACTATE 12% LOTION 225 GM BTL EXT SCH ×2 (11:34→21:02)
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
[2021-11-08 16:34] LABS: Hematocrit (blood only) 27.4 % (34.1-44.9); Hemoglobin 9.1 g/dl (12.0-16.0)
[2021-11-08] MEDS: TOPIRAMATE 25 MG TAB PO SCH (21:05)
[2021-11-09] MEDS: ALBUTEROL HFA 8 GM INHALER INH PRN ×2 (03:22→21:46)
[2021-11-09] MEDS: LORazepam 0.5 MG TAB PO PRN ×3 (05:38→22:53)
[2021-11-09] MEDS: ACETAMINOPHEN 325 MG TAB PO SCH ×4 (05:38→22:53)
[2021-11-09 06:11] LABS: Hematocrit (blood only) 25.2 % (34.1-44.9); Hemoglobin 8.5 g/dl (12.0-16.0); Mean Corpuscular Hgb Conc 33.7 g/dL (32.0-36.0); Mean Corpuscular Volume 94.7 fL (80.0-100.0); Mean Platelet Volume 11.7 fL (9.4-12.3); Platelet Count 241 K/uL (130-400); RDW Coefficient of Variation 19.8 % (11.5-14.5); RDW Standard Deviation 68.2 fL (36.4-46.3); Red Blood Count 2.66 M/uL (3.93-5.22); White Blood Count 6.28 K/ul (4.8-10.8)
[2021-11-09 06:33] LABS: BUN Creatinine Ratio 16.7 (10-20); Calcium 7.5 mg/dl (8.5-10.1); Creatinine Clr Calc Pharmacy 98.7 ml/min; Est GFR (African American) 121.5 ml/min; Est GFR (Non-African American) 104.8 ml/min; Potassium 3.3 mmol/L (3.5-5.1)
[2021-11-09] MEDS ORDERED: POTASSIUM CHLORIDE CRTAB 20 MEQ TABCR PO ONE (07:25)
[2021-11-09] MEDS: PANTOprazole 40 MG TAB PO SCH ×2 (08:55→20:08)
[2021-11-09] MEDS: PROMETHAZINE HCL 25 MG TAB PO SCH ×4 (08:56→20:08)
[2021-11-09] MEDS: NITROFURANTOIN MONOHYDRATE 100 MG CAP PO SCH ×2 (08:56→20:08)
[2021-11-09] MEDS: FEXOFENADINE HCL 180 MG TAB PO SCH (08:57)
[2021-11-09] MEDS: FOLIC ACID 1 MG TAB PO SCH (08:57)
[2021-11-09] MEDS: THIAMINE HCL 100 MG TAB PO SCH (08:57)
[2021-11-09] MEDS: MUPIROCIN 2% OINT 22 GM TUBE EXT SCH ×2 (08:58→20:09)
[2021-11-09] MEDS: AMMONIUM LACTATE 12% LOTION 225 GM BTL EXT SCH ×2 (08:58→20:10)
[2021-11-09] MEDS: TRIAMCINOLONE ACET 0.1% CR 80 GM TUBE TOP SCH ×2 (08:58→20:09)
[2021-11-09] MEDS: LIDOCAINE 5% 1 PATCH TD SCH (08:59)
[2021-11-09] MEDS: HEPARIN SOD 5,000 UNIT/0.5 ML VIAL SQ SCH ×2 (08:59→20:06)
[2021-11-09] MEDS: DICLOFENAC SOD 1% GEL 100 GM TUBE EXT SCH ×3 (08:59→20:08)
[2021-11-09] MEDS: SODIUM CHLORIDE 0.9% 1000ML 1,000 ML IV SCH (11:47)
[2021-11-09] MEDS: ONDANSETRON INJ 2 MG/ML 2 ML VIAL IV PRN ×2 (11:51→21:03)
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
[2021-11-09] MEDS: TOPIRAMATE 25 MG TAB PO SCH (20:08)
[2021-11-10] MEDS: ONDANSETRON INJ 2 MG/ML 2 ML VIAL IV PRN (04:12)
[2021-11-10] MEDS: ACETAMINOPHEN 325 MG TAB PO SCH ×4 (06:06→23:02)
[2021-11-10 07:35] LABS: Basophils # (auto) 0.07 K/uL (0-0.2); Basophils % (auto) 1.2 %; Eosinophils # (auto) 0.68 K/uL (0-0.50); Hematocrit (blood only) 25.9 % (34.1-44.9); Hemoglobin 8.7 g/dl (12.0-16.0); Immature Granulocytes # (auto) 0.02 K/uL (0.00-0.02); Immature Granulocytes % (auto) 0.4 %; Lymphocytes % (auto) 15.9 %; Mean Corpuscular Hgb Conc 33.6 g/dL (32.0-36.0); Mean Corpuscular Volume 98.1 fL (80.0-100.0); Mean Platelet Volume 11.6 fL (9.4-12.3); Monocytes # (auto) 0.55 K/uL (0.24-0.82); Monocytes % (auto) 9.7 %; Neutrophils # (auto) 3.43 K/uL (1.4-6.5); Neutrophils % (auto) 60.8 %; Platelet Count 234 K/uL (130-400); RDW Coefficient of Variation 19.9 % (11.5-14.5); RDW Standard Deviation 71.4 fL (36.4-46.3); Red Blood Count 2.64 M/uL (3.93-5.22); White Blood Count 5.65 K/ul (4.8-10.8)
[2021-11-10 07:57] LABS: BUN Creatinine Ratio 14.5 (10-20); Calcium 7.5 mg/dl (8.5-10.1); Creatinine Clr Calc Pharmacy 107.7 ml/min; Est GFR (Non-African American) 107.8 ml/min; Magnesium 1.8 mg/dl (1.7-2.4); Potassium 3.6 mmol/L (3.5-5.1)
[2021-11-10] MEDS: SODIUM CHLORIDE 0.9% 1000ML 1,000 ML IV SCH (08:01)
[2021-11-10] MEDS: AMMONIUM LACTATE 12% LOTION 225 GM BTL EXT SCH ×2 (08:01→20:37)
[2021-11-10] MEDS: DICLOFENAC SOD 1% GEL 100 GM TUBE EXT SCH ×3 (08:01→20:36)
[2021-11-10] MEDS: TRIAMCINOLONE ACET 0.1% CR 80 GM TUBE TOP SCH ×2 (08:02→20:37)
[2021-11-10] MEDS: PANTOprazole 40 MG TAB PO SCH ×2 (08:02→20:36)
[2021-11-10] MEDS: NITROFURANTOIN MONOHYDRATE 100 MG CAP PO SCH ×2 (08:02→20:36)
[2021-11-10] MEDS: PROMETHAZINE HCL 25 MG TAB PO SCH ×4 (08:02→20:36)
[2021-11-10] MEDS: THIAMINE HCL 100 MG TAB PO SCH (08:03)
[2021-11-10] MEDS: FOLIC ACID 1 MG TAB PO SCH (08:03)
[2021-11-10] MEDS: FEXOFENADINE HCL 180 MG TAB PO SCH (08:03)
[2021-11-10] MEDS: HEPARIN SOD 5,000 UNIT/0.5 ML VIAL SQ SCH ×2 (08:04→20:37)
[2021-11-10] MEDS: LIDOCAINE 5% 1 PATCH TD SCH (08:04)
[2021-11-10] MEDS: MUPIROCIN 2% OINT 22 GM TUBE EXT SCH ×2 (08:05→20:37)
[2021-11-10] MEDS: LORazepam 0.5 MG TAB PO PRN ×3 (08:12→23:04)
[2021-11-10] MEDS: oxyCODONE/ACETAMINOPHEN 5mg/325mg TAB PO PRN (10:26)
[2021-11-10] MEDS: CYCLOBENZAPRINE HCL 10 MG TAB PO PRN ×2 (10:26→15:41)
--- NOTE | 2021-11-10 12:34 | XRay Report ---
XR abdomen 2V w PA chest CLINICAL HISTORY: Evaluate for small bowel obstruction. Abdominal pain.. COMPARISON STUDY: No previous studies for comparison. TECHNIQUE: Single view of the chest. Supine and upright views of the abdomen. FINDINGS: The study is limited by the patient's body habitus. Single frontal view of the chest demonstrates the cardiomediastinal silhouette to be within normal li mits. The lungs are clear of acute alveolar opacities. There is no evidence for pleural effusion. The re is no evidence for vascular congestion. There is no acute osseous pathology. Abdomen: There is no free air or significant air-fluid levels present. The bowel gas pattern is withi n normal limits without evidence for dilatation or obstruction. There is no evidence for organomegaly or gross intra-abdominal mass. No abnormal calcifications are seen along the course of the urinary t racts bilaterally. No acute osseous pathology. IMPRESSION: 1. No acute intra-abdominal or chest abnormality. ACT 112: Negative or not required by law. Electronically signed by: Cayetano Baker M.D. 11/10/2021 12:33 PM
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
[2021-11-10] MEDS: TOPIRAMATE 25 MG TAB PO SCH (20:36)
[2021-11-11] MEDS: ONDANSETRON INJ 2 MG/ML 2 ML VIAL IV PRN ×3 (01:00→19:30)
[2021-11-11] MEDS: CYCLOBENZAPRINE HCL 10 MG TAB PO PRN (03:53)
[2021-11-11] MEDS: oxyCODONE HCL IR 5 MG TAB (IMMEDIATE RELEASE) PO PRN (03:53)
[2021-11-11] MEDS: ACETAMINOPHEN 325 MG TAB PO SCH ×4 (04:21→23:03)
[2021-11-11] MEDS: LIDOCAINE 5% 1 PATCH TD SCH (09:01)
[2021-11-11] MEDS: PROMETHAZINE HCL 25 MG TAB PO SCH ×4 (09:01→20:40)
[2021-11-11] MEDS: FOLIC ACID 1 MG TAB PO SCH (09:01)
[2021-11-11] MEDS: AMMONIUM LACTATE 12% LOTION 225 GM BTL EXT SCH ×2 (09:01→20:39)
[2021-11-11] MEDS: NITROFURANTOIN MONOHYDRATE 100 MG CAP PO SCH (09:02)
[2021-11-11] MEDS: FEXOFENADINE HCL 180 MG TAB PO SCH (09:02)
[2021-11-11] MEDS: THIAMINE HCL 100 MG TAB PO SCH (09:02)
[2021-11-11] MEDS: PANTOprazole 40 MG TAB PO SCH ×2 (09:02→20:41)
[2021-11-11] MEDS: HEPARIN SOD 5,000 UNIT/0.5 ML VIAL SQ SCH ×2 (09:03→20:40)
[2021-11-11] MEDS: DICLOFENAC SOD 1% GEL 100 GM TUBE EXT SCH ×3 (09:03→20:39)
[2021-11-11] MEDS: MUPIROCIN 2% OINT 22 GM TUBE EXT SCH ×2 (09:03→20:43)
[2021-11-11] MEDS: TRIAMCINOLONE ACET 0.1% CR 80 GM TUBE TOP SCH ×2 (09:04→20:44)
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
[2021-11-11] MEDS: LORazepam 0.5 MG TAB PO PRN ×2 (12:28→20:41)
[2021-11-11] MEDS: TOPIRAMATE 50 MG TAB PO SCH (20:43)
[2021-11-12] MEDS: LORazepam 0.5 MG TAB PO PRN ×4 (00:29→20:55)
[2021-11-12] MEDS: ONDANSETRON INJ 2 MG/ML 2 ML VIAL IV PRN ×3 (00:29→15:33)
[2021-11-12] MEDS: ACETAMINOPHEN 325 MG TAB PO SCH ×4 (05:33→21:51)
[2021-11-12] MEDS: oxyCODONE HCL IR 5 MG TAB (IMMEDIATE RELEASE) PO PRN ×2 (07:41→20:55)
[2021-11-12] MEDS: AMMONIUM LACTATE 12% LOTION 225 GM BTL EXT SCH ×2 (07:41→20:56)
[2021-11-12] MEDS: DICLOFENAC SOD 1% GEL 100 GM TUBE EXT SCH ×3 (07:41→20:55)
[2021-11-12] MEDS: PROMETHAZINE HCL 25 MG TAB PO SCH ×4 (07:41→20:56)
[2021-11-12] MEDS: PANTOprazole 40 MG TAB PO SCH ×2 (07:41→21:51)
[2021-11-12] MEDS: TRIAMCINOLONE ACET 0.1% CR 80 GM TUBE TOP SCH ×2 (07:42→20:56)
[2021-11-12] MEDS: FOLIC ACID 1 MG TAB PO SCH (07:42)
[2021-11-12] MEDS: LIDOCAINE 5% 1 PATCH TD SCH (07:43)
[2021-11-12] MEDS: HEPARIN SOD 5,000 UNIT/0.5 ML VIAL SQ SCH ×2 (07:43→20:56)
[2021-11-12] MEDS: FEXOFENADINE HCL 180 MG TAB PO SCH (07:43)
[2021-11-12] MEDS: MUPIROCIN 2% OINT 22 GM TUBE EXT SCH ×2 (07:43→20:56)
[2021-11-12] MEDS: THIAMINE HCL 100 MG TAB PO SCH (07:44)
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
[2021-11-12] MEDS: TOPIRAMATE 50 MG TAB PO SCH (21:51)
[2021-11-13] MEDS: CYCLOBENZAPRINE HCL 10 MG TAB PO PRN (01:33)
[2021-11-13] MEDS: ALBUTEROL HFA 8 GM INHALER INH PRN (01:55)
[2021-11-13] MEDS: ACETAMINOPHEN 325 MG TAB PO SCH ×2 (04:30→10:10)
[2021-11-13] MEDS: oxyCODONE HCL IR 5 MG TAB (IMMEDIATE RELEASE) PO PRN (08:04)
[2021-11-13] MEDS: PROMETHAZINE HCL 25 MG TAB PO SCH ×2 (08:07→12:26)
[2021-11-13] MEDS: FEXOFENADINE HCL 180 MG TAB PO SCH (08:07)
[2021-11-13] MEDS: THIAMINE HCL 100 MG TAB PO SCH (08:07)
[2021-11-13] MEDS: DICLOFENAC SOD 1% GEL 100 GM TUBE EXT SCH ×2 (08:07→15:07)
[2021-11-13] MEDS: FOLIC ACID 1 MG TAB PO SCH (08:07)
[2021-11-13] MEDS: PANTOprazole 40 MG TAB PO SCH (08:07)
[2021-11-13] MEDS: AMMONIUM LACTATE 12% LOTION 225 GM BTL EXT SCH (08:08)
[2021-11-13] MEDS: LIDOCAINE 5% 1 PATCH TD SCH (08:08)
[2021-11-13] MEDS: HEPARIN SOD 5,000 UNIT/0.5 ML VIAL SQ SCH (08:08)
[2021-11-13] MEDS: MUPIROCIN 2% OINT 22 GM TUBE EXT SCH (08:09)
[2021-11-13] MEDS: TRIAMCINOLONE ACET 0.1% CR 80 GM TUBE TOP SCH (08:09)
[2021-11-13 08:37] LABS: Hematocrit (blood only) 26.9 % (34.1-44.9); Hemoglobin 8.9 g/dl (12.0-16.0); Mean Corpuscular Hgb Conc 33.1 g/dL (32.0-36.0); Mean Corpuscular Volume 96.8 fL (80.0-100.0); Mean Platelet Volume 11.1 fL (9.4-12.3); Platelet Count 274 K/uL (130-400); RDW Coefficient of Variation 18.4 % (11.5-14.5); RDW Standard Deviation 66.1 fL (36.4-46.3); Red Blood Count 2.78 M/uL (3.93-5.22); White Blood Count 6.32 K/ul (4.8-10.8)
[2021-11-13 09:17] LABS: BUN Creatinine Ratio 9.4 (10-20); Calcium 8.1 mg/dl (8.5-10.1); Creatinine Clr Calc Pharmacy 92.5 ml/min; Est GFR (African American) 118.9 ml/min; Est GFR (Non-African American) 102.6 ml/min; Magnesium 1.7 mg/dl (1.7-2.4); Potassium 3.7 mmol/L (3.5-5.1)
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
[2021-11-13] MEDS: ONDANSETRON INJ 2 MG/ML 2 ML VIAL IV PRN (15:30)
== END 2021-11-13 16:32 | DRG 689 ==
LOC: ED 08:17 → 2S 16:07 → SUATTDRO 16:07 → 2S 17:35 → 3W 11-12 14:00

== ENCOUNTER 2022-01-12 16:35 | Inpatient (IN) ==
--- NOTE | 2022-01-12 16:49 | Emergency Department Note ---
Impression & Plan Nausea vomiting and diarrhea, Anxiety, Alcohol use disorder, Acute dehydration ED Provider Note NAME: DAT CAMP AGE: 51 SEX: F : 1970 ARRIVES VIA: Ambulance INFORMANT: Patient, ED PROVIDER(S): Stef Robison MD Chief Complaint: Nausea vomiting diarrhea HPI: Patient presents with the above symptoms. Patient states that she has had 3 episodes of vomiting since yesterday and began having diarrhea this morning. The patient does admit to alcohol use but does not use in approximately a week. Patient denies any fevers chills chest pains or shortness of breath. The patient does have some upper abdominal discomfort. Patient denies any tobacco or drug use. The patient typically will try some Phenergan but did not take this at home. Patient did take her Ativan this morning. Patient denies any antibiotic use stream or well water or known sick contacts. The patient does state that she has been eating more "junk food" and thinks that this may be contributory. No exacerbating or remitting factors. ROS: See HPI for pertinent positives and negatives. A total of 10 systems were reviewed and otherwise negative. Past medical history: See below Surgical history: See below Social history: See below Physical Exam: GENERAL: NAD, wearing a mask, non-toxic. EYE EXAM: Normal conjunctiva. PERRL, no anisocoria and EOM's grossly intact w/o pain. NECK: Supple, no nuchal rigidity, no adenopathy, non-tender. No signs of meningismus. FROM of the neck with good chin to chest and neck extension. No stridor. LUNGS: Clear to auscultation. Normal chest wall mechanics. HEART: Tachycardic and regular, no MRG. ABDOMEN: Abdomen soft, non-tender, normo-active bowel sounds, no masses, no rebound or guarding. BACK: No CVA TTP. SKIN: Blanching pruritic diffuse rash, excoriations noted. UPPER EXTREMITIES: Upper extremities are grossly normal. LOWER EXTREMITIES: Grossly normal, no edema. NEURO EXAM: A&O x3, cranial nerves II-XII grossly intact, normal speech, moves all 4 extremities. Differential diagnoses: Gastroenteritis, food borne illness, infections, appendicitis, diverticulitis, inflammatory bowel disease, obstruction, GI bleed, biliary pathology, volvulus, as well as other pathologies. Course: Patient was seen and evaluated the bedside. Full history physical exam was performed. EKG interpreted by me Sinus tachycardia, rate of 105, normal intervals and axis, no ST elevations. Imaging Studies: See Below Cardiac monitoring: An order was placed for continuous cardiac monitoring. The monitor shows a rate of 92 with sinus rhythm. MDM: Patient presented due to concern for nausea vomiting diarrhea. The patient did have bladder completed and was ordered IV fluids. The patient was tachycardic. Patient denies any chest pains or shortness of breath. The patient's blood work showed a normal white count with a hemoglobin of 10. The patient does have chronic and relatively stable anemia. Platelet count is normal. Kidney function unremarkable. Slightly elevation in anion gap. The patient did have hypocalcemia which was ordered for replacement. Additional IV fluids ordered. The patient does have mild elevation in liver enzymes but these appear to be grossly chronic in nature. The patient has no right upper quadrant pain. I did reevaluate the patient several times. The patient has had some persistent tachycardia and unsure whether or not the patient may have some underlying withdrawal related symptoms given her known alcohol use history. Patient was ordered some additional fluids as well as IV Ativan. I did speak the on-call hospitalist Dr. Gorman. Patient was admitted to the medicine service. 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 Lanza Surgical History H/O foot surgery RT HEEL SURGERY X 2 (HARDWARE INTACT) TOE CORRECTION X 3 (PINS INTACT ON RT FOOT) H/O shoulder surgery RT HUMERUS FX REPAIRED (HARDWARE INTACT) H/O wisdom tooth extraction H/O wrist surgery LEFT WRIST X 2 SURGERIES History of cholecystectomy History of colonoscopy History of esophagogastroduodenoscopy (EGD) History of gastrectomy secondary to PUD (OVER 10 YEARS AGO) History of hand surgery LEFT HAND FINGER REPAIR History of hysterectomy History of vascular access device MEDIPORT INTACT Family History Father Diabetes Mother Von Willebrand disease Grandmother (Paternal) Family hx of colon cancer Social History Smoking Status: Never smoker Second Hand Exposure: No; Do You Dip or Chew Tobacco: No; Tobacco Cessation Education Requested by Patient: No Hx Alcohol Use: Yes Alcohol type: wine Hx Substance Use: Yes Preferred Language: Irish Communication Ability: Unable Communication Ability Comment: Blind Furnace Filler Required: No Beliefs That Will Affect Care: None marital status: Legally Current Living Situation: Alone Current Living Situation Comment: Lives with neighbor but does not feel safe, does not wish to elaborate current occupational status: disabled How many Children do You have: 2 Other Information That Helps Us Care for You: No Feels Safe at Home: Yes Safety Concerns: Afraid for Self Assistive Devices: Cane, Glasses, Hearing Aid - Bilateral, Hearing Aid - Left and Mechanical Lift Allergies Allergies Allergy/AdvReac Type Severity Reaction Status Date / Time iron dextran complex Allergy Severe SOB, heart Verified 11/03/21 16:07 racing (see comments) cat dander Allergy Intermediate eye Verified 11/03/21 16:07 watering ceftriaxone Allergy Intermediate Hives Verified 11/03/21 16:07 ciprofloxacin Allergy Intermediate lips Verified 11/03/21 16:07 burning/peeling doxycycline Allergy Intermediate hives, Verified 11/03/21 16:07 vomiting iron Allergy Intermediate Hives Verified 11/13/21 13:21 latex Allergy Intermediate mouth Verified 11/03/21 16:07 hives/burning sensation Penicillins Allergy Intermediate Hives Verified 11/03/21 16:07 Quinolones Allergy Intermediate Hives Verified 11/03/21 16:07 Sulfa (Sulfonamide Allergy Intermediate hives Verified 11/03/21 16:07 Antibiotics) Aminoglycosides Allergy Unknown unknown Verified 11/03/21 16:07 reaction tobramycin AdvReac Severe blindness Verified 11/03/21 16:07 citalopram AdvReac Mild restlessnes Verified 11/03/21 16:07 s Home Meds Home Medications Medication Instructions Recorded Confirmed pantoprazole 40 mg tablet,delayed 40 mg PO BID 01/29/18 01/12/22 release (Protonix) gabapentin 400 mg capsule 400 mg PO TID 11/18/18 01/12/22 fexofenadine 180 mg tablet 180 mg PO DAILY 09/22/19 01/12/22 (Maame Allergy) lorazepam 1 mg tablet 0.5 - 1 mg PO TID PRN Anxiety 04/12/20 01/12/22 promethazine 25 mg tablet 25 mg PO Q8H PRN Nausea 09/01/20 01/12/22 acetaminophen 325 mg tablet 650 mg PO Q6 PRN Fever Or Pain 10/14/21 01/12/22 albuterol sulfate 90 mcg/actuation 2 puff inhalation QID PRN 10/14/21 01/12/22 aerosol inhaler Shortness Of Breath Or Wheezing mupirocin 2 % topical ointment 1 applic topical BID 11/03/21 01/12/22 torsemide 20 mg tablet 20 mg PO DAILY PRN swelling 11/03/21 01/12/22 triamcinolone acetonide 0.1 % 1 applic topical BID 11/03/21 01/12/22 topical cream diclofenac sodium 1 % topical gel 2 g EXT TID PRN Pain 01/12/22 01/12/22 (Voltaren Arthritis Pain) ibuprofen 200 mg tablet 200 mg PO BID PRN Pain 01/12/22 01/12/22 oxycodone 5 mg tablet 5 mg PO Q6 PRN Pain 01/12/22 01/12/22 topiramate 25 mg tablet 50 mg PO DAILY 01/12/22 01/12/22 trazodone 50 mg tablet 50 mg PO HS PRN Sleep 01/12/22 01/12/22 Previous Rx's Medication Instructions Recorded cyclobenzaprine 10 mg tablet 10 mg PO TID PRN muscle spasm #90 11/13/21 tabs ondansetron 4 mg disintegrating 4 mg PO Q8H PRN nausea and 11/13/21 tablet vomiting #60 tabs potassium chloride 20 mEq 20 meq PO DAILY PRN with 11/13/21 tablet,extended release(part/cryst) toresemide #0 tabs Results & Data (ED) Vital Signs Vital Signs - 24 hr 01/12/22 16:38 01/12/22 17:35 01/12/22 18:24 Temperature 36.6 C Temperature Source Oral Pulse Rate 95 H 78 Pulse Rate [Left] 104 H Pulse Rate from SpO2 Sensor Pulse Rhythm Regular Pulse Rhythm [Left] Regular Pulse Strength [Left] Respiratory Rate 20 22 20 Respiratory Effort / Characteristics Non-Labored Non-Labored Respiratory Depth Normal Normal Respiratory Pattern Regular Blood Pressure 132/88 Blood Pressure [Left Arm] 104/88 Blood Pressure [Right Arm] Blood Pressure Mean 102 Blood Pressure Mean [Left Arm] 93 Blood Pressure Mean [Right Arm] Blood Pressure Position Lying Blood Pressure Position [Left Arm] Blood Pressure Position [Right Arm] Pulse Oximetry 97 97 97 Oxygen Delivery Method Room Air Room Air Room Air Sepsis Recent Fever Within 48 Hours No Sepsis New/Unexplained Change in Mental Status No Sepsis Action Taken by Nursing No Action Required 01/12/22 20:00 01/12/22 21:51 01/12/22 22:30 Temperature Temperature Source Pulse Rate 96 H Pulse Rate [Left] 78 138 H Pulse Rate from SpO2 Sensor 93 H Pulse Rhythm Pulse Rhythm [Left] Irregular Pulse Strength [Left] Respiratory Rate 20 20 14 Respiratory Effort / Characteristics Non-Labored Respiratory Depth Normal Respiratory Pattern Blood Pressure 111/70 Blood Pressure [Left Arm] 132/70 132/77 Blood Pressure [Right Arm] Blood Pressure Mean 83 Blood Pressure Mean [Left Arm] 90 95 Blood Pressure Mean [Right Arm] Blood Pressure Position Blood Pressure Position [Left Arm] Blood Pressure Position [Right Arm] Pulse Oximetry 97 95 96 Oxygen Delivery Method Room Air Room Air Sepsis Recent Fever Within 48 Hours Sepsis New/Unexplained Change in Mental Status Sepsis Action Taken by Nursing 01/12/22 23:30 01/13/22 00:00 01/13/22 00:30 Temperature Temperature Source Pulse Rate 105 H 95 H 96 H Pulse Rate [Left] Pulse Rate from SpO2 Sensor 113 H 97 H 87 Pulse Rhythm Pulse Rhythm [Left] Pulse Strength [Left] Respiratory Rate 13 17 17 Respiratory Effort / Characteristics Respiratory Depth Respiratory Pattern Blood Pressure 112/76 113/60 100/68 Blood Pressure [Left Arm] Blood Pressure [Right Arm] Blood Pressure Mean 88 77 78 Blood Pressure Mean [Left Arm] Blood Pressure Mean [Right Arm] Blood Pressure Position Blood Pressure Position [Left Arm] Blood Pressure Position [Right Arm] Pulse Oximetry 96 95 96 Oxygen Delivery Method Room Air Room Air Room Air Sepsis Recent Fever Within 48 Hours Sepsis New/Unexplained Change in Mental Status Sepsis Action Taken by Nursing 01/13/22 01:00 01/13/22 01:30 01/13/22 02:57 Temperature 36.9 C Temperature Source Oral Pulse Rate 93 H 84 Pulse Rate [Left] 111 H Pulse Rate from SpO2 Sensor 96 H Pulse Rhythm Pulse Rhythm [Left] Regular Pulse Strength [Left] Normal Respiratory Rate 18 16 20 Respiratory Effort / Characteristics Non-Labored Spontaneous Respiratory Depth Normal Respiratory Pattern Regular Blood Pressure 108/79 111/68 Blood Pressure [Left Arm] 109/89 Blood Pressure [Right Arm] Blood Pressure Mean 88 82 Blood Pressure Mean [Left Arm] 95 Blood Pressure Mean [Right Arm] Blood Pressure Position Blood Pressure Position [Left Arm] Lying Blood Pressure Position [Right Arm] Pulse Oximetry 97 98 99 Oxygen Delivery Method Room Air Room Air Room Air Sepsis Recent Fever Within 48 Hours Sepsis New/Unexplained Change in Mental Status Sepsis Action Taken by Nursing 01/13/22 04:02 01/13/22 02:59 01/13/22 06:08 Temperature 36.6 C Temperature Source Axillary Pulse Rate 96 H 68 Pulse Rate [Left] 87 Pulse Rate from SpO2 Sensor Pulse Rhythm Pulse Rhythm [Left] Pulse Strength [Left] Respiratory Rate 18 Respiratory Effort / Characteristics Respiratory Depth Respiratory Pattern Blood Pressure Blood Pressure [Left Arm] Blood Pressure [Right Arm] 102/69 Blood Pressure Mean Blood Pressure Mean [Left Arm] Blood Pressure Mean [Right Arm] 80 Blood Pressure Position Blood Pressure Position [Left Arm] Blood Pressure Position [Right Arm] Lying Pulse Oximetry 99 Oxygen Delivery Method Room Air Sepsis Recent Fever Within 48 Hours Sepsis New/Unexplained Change in Mental Status Sepsis Action Taken by Nursing 01/13/22 08:27 Temperature 36.6 C Temperature Source Oral Pulse Rate Pulse Rate [Left] 90 Pulse Rate from SpO2 Sensor Pulse Rhythm Pulse Rhythm [Left] Regular Pulse Strength [Left] Normal Respiratory Rate 18 Respiratory Effort / Characteristics Non-Labored Spontaneous Respiratory Depth Normal Respiratory Pattern Regular Blood Pressure Blood Pressure [Left Arm] 118/96 Blood Pressure [Right Arm] Blood Pressure Mean Blood Pressure Mean [Left Arm] 103 Blood Pressure Mean [Right Arm] Blood Pressure Position Blood Pressure Position [Left Arm] Semi-fowlers Blood Pressure Position [Right Arm] Pulse Oximetry 93 Oxygen Delivery Method Room Air Sepsis Recent Fever Within 48 Hours Sepsis New/Unexplained Change in Mental Status Sepsis Action Taken by [facility] Medications Current Medication List: was personally reviewed by me Laboratory Data Attestation: I reviewed the patient's lab results. Result diagrams: 01/13/22 08:38 01/13/22 08:38 Lab Results 01/12/22 01/12/22 01/12/22 Range/Units 17:32 17:32 17:32 WBC 7.56 (4.8-10.8) K/ul RBC 3.33 L (3.93-5.22) M/uL Hgb 10.2 L (12.0-16.0) g/dl Hct 30.4 L (34.1-44.9) % MCV 91.3 (80.0-100.0) fL MCH 30.6 (25.0-34.0) pg MCHC 33.6 (32.0-36.0) g/dL RDW Std Deviation 54.4 H (36.4-46.3) fL RDW Coeff of Lisa 16.2 H (11.5-14.5) % Plt Count 307 (130-400) K/uL MPV 10.6 (9.4-12.3) fL Immature Gran % (Auto) 0.5 % Neut % (Auto) 80.3 % Lymph % (Auto) 9.7 % [place] % (Auto) 8.5 % Eos % (Auto) 0.1 % Baso % (Auto) 0.9 % Neut # (Auto) 6.07 (1.4-6.5) K/uL Lymph # (Auto) 0.73 L (1.2-3.4) K/uL [place] # (Auto) 0.64 (0.24-0.82) K/uL Eos # (Auto) 0.01 (0-0.50) K/uL Baso # (Auto) 0.07 (0-0.2) K/uL Immature Gran # (Auto) 0.04 H (0.00-0.02) K/uL PT (9.0-12.0) Seconds INR (0.9-1.1) Sodium 138 (136-145) mmol/L Potassium 4.1 (3.5-5.1) mmol/L Chloride 101 (98-107) mmol/L Carbon Dioxide 24 (21-32) mmol/L Anion Gap 13 H (3-11) BUN 5 L (6-23) mg/dl Creatinine 0.72 (0.6-1.2) mg/dl Est Cr Clr Drug Dosing 80.2 ml/min Est GFR ( Amer) 111.6 ml/min Est GFR (Non-Af Amer) 96.3 ml/min BUN/Creatinine Ratio 6.9 L (10-20) Glucose 126 H (70-99(Fasting)) mg/dl Calcium 8.0 L (8.5-10.1) mg/dl Magnesium 1.9 (1.7-2.4) mg/dl Total Bilirubin 1.5 H (0.2-1.0) mg/dl AST 70 H (13-39) U/L ALT 27 (7-52) U/L Alkaline Phosphatase 215 H (34-104) U/L Troponin I High Sens 7.2 (0-14) pg/ml Total Protein 5.5 L (6.0-8.3) gm/dl Albumin 2.4 L (3.4-5.0) gm/dl Globulin 3.1 (2.5-4.0) gm/dl Albumin/Globulin Ratio 0.8 L (0.9-2) Lipase 3 L (11-82) U/L TSH 5.226 H (0.300-4.500) uIu/ml Free T4 0.98 (0.61-1.60) ng/dl Urine Color Urine Appearance (Clear) Urine pH (4.5-7.5) Ur Specific [place] (1.000-1.030) Urine Protein (Negative) Urine Glucose (UA) (Negative) Urine Ketones (Negative) Urine Blood (Negative) Urine Nitrite (Negative) Urine Bilirubin (Negative) Urine Urobilinogen (Negative) Ur Leukocyte Esterase (Negative) Urine WBC (Auto) (0-5) /hpf Urine RBC (Auto) (0-4) /hpf U Hyaline Cast (Auto) (0-5) /lpf U Epithel Cells (Auto) (0-5) /lpf Urine Bacteria (Auto) (Negative) Ethyl Alcohol mg/dL (<10.0) mg/dl SARS-CoV-2, RNA, NAAT (NEGATIVE) 01/12/22 01/12/22 01/13/22 Range/Units 17:32 17:32 01:00 WBC (4.8-10.8) K/ul RBC (3.93-5.22) M/uL Hgb (12.0-16.0) g/dl Hct (34.1-44.9) % MCV (80.0-100.0) fL MCH (25.0-34.0) pg MCHC (32.0-36.0) g/dL RDW Std Deviation (36.4-46.3) fL RDW Coeff of Lisa (11.5-14.5) % Plt Count (130-400) K/uL MPV (9.4-12.3) fL Immature Gran % (Auto) % Neut % (Auto) % Lymph % (Auto) % [place] % (Auto) % Eos % (Auto) % Baso % (Auto) % Neut # (Auto) (1.4-6.5) K/uL Lymph # (Auto) (1.2-3.4) K/uL [place] # (Auto) (0.24-0.82) K/uL Eos # (Auto) (0-0.50) K/uL Baso # (Auto) (0-0.2) K/uL Immature Gran # (Auto) (0.00-0.02) K/uL PT 13.8 H (9.0-12.0) Seconds INR 1.3 H (0.9-1.1) Sodium (136-145) mmol/L Potassium (3.5-5.1) mmol/L Chloride (98-107) mmol/L Carbon Dioxide (21-32) mmol/L Anion Gap (3-11) BUN (6-23) mg/dl Creatinine (0.6-1.2) mg/dl Est Cr Clr Drug Dosing ml/min Est GFR ( Amer) ml/min Est GFR (Non-Af Amer) ml/min BUN/Creatinine Ratio (10-20) Glucose (70-99(Fasting)) mg/dl Calcium (8.5-10.1) mg/dl Magnesium (1.7-2.4) mg/dl Total Bilirubin (0.2-1.0) mg/dl AST (13-39) U/L ALT (7-52) U/L Alkaline Phosphatase (34-104) U/L Troponin I High Sens (0-14) pg/ml Total Protein (6.0-8.3) gm/dl Albumin (3.4-5.0) gm/dl Globulin (2.5-4.0) gm/dl Albumin/Globulin Ratio (0.9-2) Lipase (11-82) U/L TSH (0.300-4.500) uIu/ml Free T4 (0.61-1.60) ng/dl Urine Color Urine Appearance (Clear) Urine pH (4.5-7.5) Ur Specific [place] (1.000-1.030) Urine Protein (Negative) Urine Glucose (UA) (Negative) Urine Ketones (Negative) Urine Blood (Negative) Urine Nitrite (Negative) Urine Bilirubin (Negative) Urine Urobilinogen (Negative) Ur Leukocyte Esterase (Negative) Urine WBC (Auto) (0-5) /hpf Urine RBC (Auto) (0-4) /hpf U Hyaline Cast (Auto) (0-5) /lpf U Epithel Cells (Auto) (0-5) /lpf Urine Bacteria (Auto) (Negative) Ethyl Alcohol mg/dL < 10.0 (<10.0) mg/dl SARS-CoV-2, RNA, NAAT NEGATIVE (NEGATIVE) 01/13/22 01/13/22 01/13/22 Range/Units 08:30 08:38 08:38 WBC 5.54 (4.8-10.8) K/ul RBC 3.16 L (3.93-5.22) M/uL Hgb 9.6 L (12.0-16.0) g/dl Hct 29.1 L (34.1-44.9) % MCV 92.1 (80.0-100.0) fL MCH 30.4 (25.0-34.0) pg MCHC 33.0 (32.0-36.0) g/dL RDW Std Deviation 55.4 H (36.4-46.3) fL RDW Coeff of Lisa 16.6 H (11.5-14.5) % Plt Count 197 (130-400) K/uL MPV 10.7 (9.4-12.3) fL Immature Gran % (Auto) 0.2 % Neut % (Auto) 50.7 % Lymph % (Auto) 24.2 % [place] % (Auto) 8.1 % Eos % (Auto) 15.9 % Baso % (Auto) 0.9 % Neut # (Auto) 2.81 (1.4-6.5) K/uL Lymph # (Auto) 1.34 (1.2-3.4) K/uL [place] # (Auto) 0.45 (0.24-0.82) K/uL Eos # (Auto) 0.88 H (0-0.50) K/uL Baso # (Auto) 0.05 (0-0.2) K/uL Immature Gran # (Auto) 0.01 (0.00-0.02) K/uL PT (9.0-12.0) Seconds INR (0.9-1.1) Sodium 139 (136-145) mmol/L Potassium 3.9 (3.5-5.1) mmol/L Chloride 109 H (98-107) mmol/L Carbon Dioxide 25 (21-32) mmol/L Anion Gap 5 (3-11) BUN 4 L (6-23) mg/dl Creatinine 0.63 (0.6-1.2) mg/dl Est Cr Clr Drug Dosing 85.4 ml/min Est GFR ( Amer) 119.5 ml/min Est GFR (Non-Af Amer) 103.1 ml/min BUN/Creatinine Ratio 6.3 L (10-20) Glucose 68 L (70-99(Fasting)) mg/dl Calcium 7.4 L (8.5-10.1) mg/dl Magnesium (1.7-2.4) mg/dl Total Bilirubin 1.8 H (0.2-1.0) mg/dl AST 59 H (13-39) U/L ALT 22 (7-52) U/L Alkaline Phosphatase 181 H (34-104) U/L Troponin I High Sens (0-14) pg/ml Total Protein 4.8 L (6.0-8.3) gm/dl Albumin 2.1 L (3.4-5.0) gm/dl Globulin 2.7 (2.5-4.0) gm/dl Albumin/Globulin Ratio 0.8 L (0.9-2) Lipase (11-82) U/L TSH (0.300-4.500) uIu/ml Free T4 (0.61-1.60) ng/dl Urine Color Yellow Urine Appearance Cloudy A (Clear) Urine pH 7.5 (4.5-7.5) Ur Specific [place] 1.019 (1.000-1.030) Urine Protein Negative (Negative) Urine Glucose (UA) Negative (Negative) Urine Ketones Negative (Negative) Urine Blood Negative (Negative) Urine Nitrite Negative (Negative) Urine Bilirubin Negative (Negative) Urine Urobilinogen Negative (Negative) Ur Leukocyte Esterase 2+ H (Negative) Urine WBC (Auto) 10-30 H (0-5) /hpf Urine RBC (Auto) 0-4 (0-4) /hpf U Hyaline Cast (Auto) 1-5 (0-5) /lpf U Epithel Cells (Auto) 10-20 H (0-5) /lpf Urine Bacteria (Auto) 4+ H (Negative) Ethyl Alcohol mg/dL (<10.0) mg/dl SARS-CoV-2, RNA, NAAT (NEGATIVE) Administered Medications Fexofenadine HCl (Fexofenadine Hcl 180 Mg Tab) 180 mg PO DAILY DENIS Stop: 02/12/22 08:59 Last Admin: 01/13/22 08:12 Dose: 180 mg Documented By: CG Folic Acid (Folic Acid 1 Mg Tab) 1 mg PO QAM [facility] Stop: 02/12/22 02:50 Last Admin: 01/13/22 08:12 Dose: 1 mg Documented By: Admin: 01/13/22 03:48 Dose: 1 mg Documented By: NMS Gabapentin (Gabapentin 400 Mg Cap) 400 mg PO TID [facility] Stop: 02/12/22 08:59 Last Admin: 01/13/22 13:59 Dose: 400 mg Documented By: Admin: 01/13/22 08:12 Dose: 400 mg Documented By: CG Promethazine HCl 6.25 mg/ (Sodium Chloride) 50.25 mls @ 201 mls/hr IV Q6H PRN PRN Reason: Nausea And Vomiting Stop: 02/12/22 02:50 Last Infusion: 01/13/22 09:03 Dose: 0 mls/hr Documented By: Admin: 01/13/22 08:16 Dose: 201 mls/hr Documented By: CG Cefepime HCl 1,000 mg/ Syringe 11.3 mls @ 5.5 mls/min IV Q12 [facility]; Protocol Stop: 01/18/22 09:14 Last Admin: 01/13/22 09:39 Dose: 5.5 mls/min Documented By: CG Lorazepam (Lorazepam 0.5 Mg Tab) 0.5 mg PO TID PRN PRN Reason: Anxiety Stop: 02/12/22 08:45 Last Admin: 01/13/22 09:20 Dose: 0.5 mg Documented By: CG Oxycodone HCl (Oxycodone Hcl Ir 5 Mg Tab (Immediate Release)) 5 mg PO Q6 PRN PRN Reason: Pain Stop: 01/27/22 02:50 Last Admin: 01/13/22 09:45 Dose: 5 mg Documented By: LION Pantoprazole Sodium (Pantoprazole 40 Mg Tab) 40 mg PO BID DENIS Stop: 02/12/22 08:59 Last Admin: 01/13/22 08:16 Dose: 40 mg Documented By: CG Thiamine HCl (Thiamine Hcl 100 Mg Tab) 100 mg PO QAM DENIS Stop: 02/12/22 02:50 Last Admin: 01/13/22 08:12 Dose: 100 mg Documented By: Admin: 01/13/22 03:48 Dose: 100 mg Documented By: MELA Topiramate (Topiramate 50 Mg Tab) 50 mg PO DAILY DENIS Stop: 02/12/22 08:59 Last Admin: 01/13/22 08:12 Dose: 50 mg Documented By: LION Discontinued Medications Clonidine HCl (Clonidine Hcl 0.1 Mg Tab) 0.1 mg PO NOW ONE Stop: 01/12/22 22:30 Last Admin: 01/13/22 00:12 Dose: Not Given Documented By: CARLIE Dicyclomine HCl (Dicyclomine Hcl 10 Mg/Ml 2 Ml Amp/Vial) 20 mg IM NOW ONE Stop: 01/12/22 19:26 Last Admin: 01/12/22 19:45 Dose: 20 mg Documented By: DERREK Gabapentin (Gabapentin 800 Mg Tab) 800 mg PO NOW STA Stop: 01/13/22 00:02 Last Admin: 01/13/22 01:00 Dose: 800 mg Documented By: CARLIE Sodium Chloride (Nss 1000ml) 1,000 mls @ 999 mls/hr IV .Q1H1M DENIS Stop: 01/12/22 18:15 Last Infusion: 01/12/22 18:36 Dose: 0 mls/hr Documented By: Admin: 01/12/22 17:34 Dose: 999 mls/hr Documented By: DERREK Promethazine HCl (Phenergan) 12.5 mg in 50.5 mls @ 202 mls/hr IV NOW STA Stop: 01/12/22 17:21 Last Infusion: 01/12/22 18:14 Dose: 0 mls/hr Documented By: Admin: 01/12/22 17:34 Dose: 202 mls/hr Documented By: DERREK Calcium Gluconate () 1,000 mg in 60 mls @ 240 mls/hr IV NOW STA Stop: 01/12/22 19:39 Last Infusion: 01/12/22 20:02 Dose: 0 mls/hr Documented By: Admin: 01/12/22 19:45 Dose: 240 mls/hr Documented By: DERREK Sodium Chloride (Nss 1000ml) 1,000 mls @ 999 mls/hr IV .Q1H1M ONE Stop: 01/12/22 20:25 Last Infusion: 01/12/22 20:46 Dose: 0 mls/hr Documented By: Admin: 01/12/22 19:44 Dose: 999 mls/hr Documented By: DERREK Magnesium Sulfate/Dextrose (Magnesium Sulfate / D5w) 1 gm in 100 mls @ 50 mls/hr IV ONE ONE Stop: 01/13/22 00:10 Last Infusion: 01/13/22 00:44 Dose: 0 mls/hr Documented By: Admin: 01/12/22 22:42 Dose: 50 mls/hr Documented By: STEPHANIE Lactated Ringer's (Lr) 1,000 mls @ 500 mls/hr IV .Q2H ONE Stop: 01/13/22 00:11 Last Infusion: 01/13/22 00:44 Dose: 0 mls/hr Documented By: Admin: 01/12/22 22:43 Dose: 500 mls/hr Documented By: STEPHANIE Thiamine HCl 100 mg/ Syringe 10 mls @ 2 mls/min IV NOW ONE Stop: 01/12/22 22:34 Last Admin: 01/12/22 23:22 Dose: 2 mls/min Documented By: CARLIE Sodium Chloride (Nss 1000ml) 1,000 mls @ 999 mls/hr IV .Q1H1M ONE Stop: 01/12/22 23:34 Last Infusion: 01/13/22 01:15 Dose: 0 mls/hr Documented By: Admin: 01/13/22 00:13 Dose: 999 mls/hr Documented By: CARLIE Lactated Ringer's (Lr) 1,000 mls @ 80 mls/hr IV .[id number] ONE Stop: 01/13/22 13:48 Last Admin: 01/13/22 03:48 Dose: 80 mls/hr Documented By: MELA Ioversol (Optiray 300 100ml) 90 ml IV ONCE ONE Stop: 01/12/22 23:07 Last Admin: 01/12/22 23:07 Dose: 90 ml Documented By: BETY Lorazepam (Lorazepam 2 Mg/1 Ml Vial) 0.5 mg IV NOW STA; Protocol Stop: 01/12/22 22:35 Last Admin: 01/12/22 22:52 Dose: 0.5 mg Documented By: DERREK Ondansetron HCl (Ondansetron Inj 2 Mg/Ml 2 Ml Vial) 4 mg IV NOW STA Stop: 01/12/22 19:26 Last Admin: 01/12/22 19:44 Dose: 4 mg Documented By: DERREK Thiamine HCl (Thiamine Hcl 100 Mg/Ml 2 Ml Vial) Confirm Administered Dose 200 mg .ROUTE .STK-MED ONE Stop: 01/12/22 22:27 Last Admin: 01/12/22 22:29 Dose: Not Given Documented By: AW Imaging Data Radiologist's Impression: Abdomen/Pelvis CT 01/12/22 22:[address] WITH IV CONTRAST CT DOSE: 243.60 mGy.cm HISTORY: Acute generalized abdominal pain abd pain TECHNIQUE: Multiaxial CT images of the abdomen and pelvis were performed following the IV administration of 90 cc of Optiray, A dose lowering technique was utilized adhering to the principles of ALARA. COMPARISON STUDY: CT abdomen and pelvis 10/14/2021 FINDINGS: Trace pleural effusions with subsegmental bibasilar atelectasis. There is no pneumatosis or pneumoperitoneum. The spleen, moderately atrophic pancreas and adrenal glands are unremarkable. Hepatomegaly with severe hepatic steatosis. No hepatic mass or evidence of cirrhosis. CSF the hepatic and portal veins. Cholecystectomy. There is suggestion of tiny stones within the distal common bile duct. The common bile duct is dilated measuring up to 1.4 cm along with mild intrahepatic biliary ductal dilation. Unremarkable kidneys. No hydronephrosis. Air within the urinary bladder lumen. Aorta and IVC are unremarkable. Borderline enlarged inguinal chain lymph nodes are favored to be reactive. Mild periportal lymphadenopathy is also noted. Post operative changes of the stomach are redemonstrated. There is partial distention with diffuse wall thickening involving the majority of the colon. Normal appendix. Mild diffuse body wall and mesenteric edema with trace abdominal ascites. Osseous of the anterior abdominal wall. Degenerative changes of the spine, pelvis and left. Subacute to chronic bilateral nondisplaced rib fractures. Chronic pelvic ring fractures. Unchanged thoracolumbar compression deformities. IMPRESSION: 1. Mild diffuse wall thickening of the colon is suspicious for a nonspecific colitis. Partial distention of the colon could appear similarly. 2. No bowel obstruction. 3. Prior cholecystectomy. There is suggestion of tiny stones within the distal common bile duct with mild intrahepatic and extrahepatic biliary ductal dilation. Correlation with serum bilirubin recommended. 4. Trace pleural effusions with mesenteric and body wall edema and trace abdominal ascites. 5. Air within the urinary bladder lumen may be secondary to instrumentation versus gas forming organism. 6. Additional findings as above. ACT 112: Negative or not required by law. The above report was generated using voice recognition software. It may contain grammatical, syntax or spelling errors. Electronically signed by: Rahat Blanco M.D. 01/13/2022 8:[address] 01/13/22 02:53 CT head/brain wo con CLINICAL HISTORY: 51 years-old Female with billingsley, trauma. Acute headache with weakness status post trauma TECHNIQUE: Multiple axial CT images of the head were obtained without contrast. A dose lowering technique was utilized adhering to the principles of ALARA. CT DOSE: 614.27 mGy.cm COMPARISON: Head CT 11/03/2021, brain MRI 01/09/2021. FINDINGS: No acute intracranial hemorrhage, midline shift, intracranial mass, hydrocephalus, territorial ischemia or new abnormal extra-axial collection. Involutional changes with ex vacuo ventriculomegaly. White matter hypodensities suggest chronic microvascular ischemic disease. Subtle area of increased attenuation involving the extra-axial space superior to the right frontal lobe on image 27 series 2 is unchanged from the 01/09/2021 brain MRI. The calvarium is intact. Polypoid mucosal thickening of the left maxillary sinus. The mastoid air cells are clear. IMPRESSION: No acute intracranial abnormality. ACT 112: Negative or not required by law. The above report was generated using voice recognition software. It may contain grammatical, syntax or spelling errors. Electronically signed by: Rahat Blanco M.D. 01/13/2022 7:14 AM Discharge Plan Visit Data Chief Complaint: Vomiting ED Provider: Stef Robison Discharge Problem: Nausea vomiting and diarrhea, Anxiety, Alcohol use disorder, Acute dehydration Patient Disposition: Admitted As Inpatient Discharge Instructions Interventions: ED Discharge Assessment Last Done: 01/13/22 02:00
[2022-01-12] MEDS ORDERED: PROMETHAZINE 12.5 MG/50.5 ML BAG IV STA (17:07)
[2022-01-12] MEDS ORDERED: SODIUM CHLORIDE 0.9% 1000ML 1,000 ML IV SCH (17:15)
[2022-01-12 17:54] LABS: Basophils # (auto) 0.07 K/uL (0-0.2); Basophils % (auto) 0.9 %; Eosinophils # (auto) 0.01 K/uL (0-0.50); Eosinophils % (auto) 0.1 %; Hematocrit (blood only) 30.4 % (34.1-44.9); Hemoglobin 10.2 g/dl (12.0-16.0); Immature Granulocytes # (auto) 0.04 K/uL (0.00-0.02); Immature Granulocytes % (auto) 0.5 %; Lymphocytes # (auto) 0.73 K/uL (1.2-3.4); Lymphocytes % (auto) 9.7 %; Mean Corpuscular Hemoglobin 30.6 pg (25.0-34.0); Mean Corpuscular Hgb Conc 33.6 g/dL (32.0-36.0); Mean Corpuscular Volume 91.3 fL (80.0-100.0); Mean Platelet Volume 10.6 fL (9.4-12.3); Monocytes # (auto) 0.64 K/uL (0.24-0.82); Monocytes % (auto) 8.5 %; Neutrophils # (auto) 6.07 K/uL (1.4-6.5); Neutrophils % (auto) 80.3 %; Platelet Count 307 K/uL (130-400); RDW Coefficient of Variation 16.2 % (11.5-14.5); RDW Standard Deviation 54.4 fL (36.4-46.3); Red Blood Count 3.33 M/uL (3.93-5.22); White Blood Count 7.56 K/ul (4.8-10.8)
--- NOTE | 2022-01-12 17:57 | XRay Report ---
XR chest 1V portable CLINICAL HISTORY: weakness COMPARISON STUDY: Chest radiograph November 10, 2021. Chest CT October 14, 2021. FINDINGS: Right humeral internal fixation is incidentally noted. Multiple old bilateral rib fractures . Lung volumes are at the lower limits of normal. Lungs are clear. There is no pneumothorax or pleura l effusion. Cardiac size is normal. Mediastinal contours are normal. There is no evidence for pulmona ry edema. IMPRESSION: No acute cardiopulmonary findings. ACT 112: Negative or not required by law. Electronically signed by: Wilfrid Goldsmith M.D. 01/12/2022 5:56 PM
[2022-01-12 18:18] LABS: Albumin Globulin Ratio 0.8 (0.9-2); Albumin Level 2.4 gm/dl (3.4-5.0); BUN Creatinine Ratio 6.9 (10-20); Bilirubin,Total 1.5 mg/dl (0.2-1.0); Creatinine Clr Calc Pharmacy 80.2 ml/min; Est GFR (African American) 111.6 ml/min; Est GFR (Non-African American) 96.3 ml/min; Globulin 3.1 gm/dl (2.5-4.0); Magnesium 1.9 mg/dl (1.7-2.4); Potassium 4.1 mmol/L (3.5-5.1); Total Protein 5.5 gm/dl (6.0-8.3)
[2022-01-12 18:21] LABS: Troponin I High Sensitivity 7.2 pg/ml (0-14)
[2022-01-12 18:30] LABS: Thyroid Stimulating Hormone 5.226 uIu/ml (0.300-4.500)
[2022-01-12 19:01] LABS: T4 Free Thyroxine 0.98 ng/dl (0.61-1.60)
[2022-01-12] MEDS ORDERED: CALCIUM GLUCONATE 1,000 MG/60 ML BAG IV STA (19:25)
[2022-01-12] MEDS ORDERED: SODIUM CHLORIDE 0.9% 1000ML 1,000 ML IV ONE ×2 (19:25→22:34)
[2022-01-12] MEDS ORDERED: DICYCLOMINE HCL 10 MG/ML 2 ML AMP/VIAL IM ONE (19:25)
[2022-01-12] MEDS ORDERED: ONDANSETRON INJ 2 MG/ML 2 ML VIAL IV STA (19:25)
[2022-01-12] MEDS ORDERED: MAGNESIUM SULFATE / D5W 1 GM/100 ML BAG IV ONE (22:11)
[2022-01-12] MEDS ORDERED: LACTATED RINGER'S 1,000 ML IV ONE (22:12)
[2022-01-12] MEDS ORDERED: THIAMINE HCL 100 MG/ML 2 ML VIAL ONE (22:26)
[2022-01-12] MEDS ORDERED: cloNIDine HCL 0.1 MG TAB PO ONE (22:29)
[2022-01-12] MEDS ORDERED: THIAMINE HCL 100 MG in SYRINGE 9 ML IV ONE (22:30)
[2022-01-12] MEDS ORDERED: LORazepam 2 MG/2 ML SYR IV STA (22:34)
[2022-01-12 22:55] LABS: INR 1.3 (0.9-1.1); Prothrombin Time 13.8 Seconds (9.0-12.0)
[2022-01-12] MEDS ORDERED: OPTIRAY 300 100mL IV ONE (23:06)
--- NOTE | 2022-01-12 23:43 | History & Physical Report ---
Date of Service January 12, 2022 Assessment & Plan (1) Tachycardia: Plan: multifactorial: Abdominal pain (colitis rule out C. difficile versus biliary stone) Alcohol withdrawal PUD status post surgery hx von Willebrand's disease Seizure disorder, stable on regimen Chronic anemia, hemoglobin at baseline anxiety/mood disorder, at baseline history traumatic subdural/rectus sheath hematoma Functional disability/unsafe home environment, patient noncompliant with social workers recommendation to move to facility where she can have help as per outpatient notes OBS Medical telemetry Analgesia Stool C. difficile May need GI consultation pending official CT abdomen pelvis results N.p.o. until official CT results available KEAGAN S, DT precautions PT OT eval DVT prophylaxis. SCDs Re: Possible procedure DNR Text document was generated using [employer] voice recognition software. It may contain grammatical or spelling errors. Kindly contact undersigned for clarification of any documentation item in question. History of Present Illness Chief Complaint: Abdominal pain, vomiting, diarrhea Primary Care Provider: Dr. Bae History obtained from patient and records. 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 Recent confinement 2 months ago for weakness and complicated UTI. 3 days history of achy central abdominal pain followed by nausea vomiting watery diarrhea symptoms. Patient would not know if there was blood in her stool unless she tasted it. Fever, no chills. No recent antibiotic Rx or no known sick contacts. Last alcoholic drink was yesterday. Patient denies chest pain, SOB. Patient also complaining of headache and dizziness symptoms. Patient consulted ER for evaluation of symptoms. Medical History as above Surgical History : Right hip surgery, shoulder surgery, vascular procedure, cholecystectomy, partial gastrectomy, J-tube placement, hysterectomy, hand surgery Family History : Osteoporosis, von Willebrand's disease, breast cancer, heart disease, alcoholism Personal/Social history : Non-smoker, alcohol abuse as per records, disabled Allergies Allergy/AdvReac Type Severity Reaction Status Date / Time iron dextran complex Allergy Severe SOB, heart Verified 11/03/21 16:07 racing (see comments) cat dander Allergy Intermediate eye Verified 11/03/21 16:07 watering ceftriaxone Allergy Intermediate Hives Verified 11/03/21 16:07 ciprofloxacin Allergy Intermediate lips Verified 11/03/21 16:07 burning/peeling doxycycline Allergy Intermediate hives, Verified 11/03/21 16:07 vomiting iron Allergy Intermediate Hives Verified 11/13/21 13:21 latex Allergy Intermediate mouth Verified 11/03/21 16:07 hives/burning sensation Penicillins Allergy Intermediate Hives Verified 11/03/21 16:07 Quinolones Allergy Intermediate Hives Verified 11/03/21 16:07 Sulfa (Sulfonamide Allergy Intermediate hives Verified 11/03/21 16:07 Antibiotics) Aminoglycosides Allergy Unknown unknown Verified 11/03/21 16:07 reaction tobramycin AdvReac Severe blindness Verified 11/03/21 16:07 citalopram AdvReac Mild restlessnes Verified 11/03/21 16:07 s Home Medications Medication Instructions Recorded Confirmed Type pantoprazole 40 mg tablet,delayed 40 mg PO BID 01/29/18 01/12/22 History release (Protonix) gabapentin 400 mg capsule 400 mg PO TID 11/18/18 01/12/22 History fexofenadine 180 mg tablet 180 mg PO DAILY 09/22/19 01/12/22 History (Maame Allergy) lorazepam 1 mg tablet 0.5 - 1 mg PO TID PRN Anxiety 04/12/20 01/12/22 History promethazine 25 mg tablet 25 mg PO Q8H PRN Nausea 09/01/20 01/12/22 History acetaminophen 325 mg tablet 650 mg PO Q6 PRN Fever Or Pain 10/14/21 01/12/22 History albuterol sulfate 90 mcg/actuation 2 puff inhalation QID PRN 10/14/21 01/12/22 History aerosol inhaler Shortness Of Breath Or Wheezing mupirocin 2 % topical ointment 1 applic topical BID 11/03/21 01/12/22 History torsemide 20 mg tablet 20 mg PO DAILY PRN swelling 11/03/21 01/12/22 History triamcinolone acetonide 0.1 % 1 applic topical BID 11/03/21 01/12/22 History topical cream cyclobenzaprine 10 mg tablet 10 mg PO TID PRN muscle spasm #90 11/13/21 01/12/22 Rx tabs ondansetron 4 mg disintegrating 4 mg PO Q8H PRN nausea and 11/13/21 01/12/22 Rx tablet vomiting #60 tabs potassium chloride 20 mEq 20 meq PO DAILY PRN with 11/13/21 01/12/22 Rx tablet,extended release(part/cryst) toresemide #0 tabs diclofenac sodium 1 % topical gel 2 g EXT TID PRN Pain 01/12/22 01/12/22 History (Voltaren Arthritis Pain) ibuprofen 200 mg tablet 200 mg PO BID PRN Pain 01/12/22 01/12/22 History oxycodone 5 mg tablet 5 mg PO Q6 PRN Pain 01/12/22 01/12/22 History topiramate 25 mg tablet 50 mg PO DAILY 01/12/22 01/12/22 History trazodone 50 mg tablet 50 mg PO HS PRN Sleep 01/12/22 01/12/22 History Past Med/Surg History Medical History (Updated 01/13/22 @ 07:18 by Joby Gorman MD) Anemia hx of blood transfusion (post-operatively 10/2018) Anxiety 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 Lanza Surgical History H/O foot surgery RT HEEL SURGERY X 2 (HARDWARE INTACT) TOE CORRECTION X 3 (PINS INTACT ON RT FOOT) H/O shoulder surgery RT HUMERUS FX REPAIRED (HARDWARE INTACT) H/O wisdom tooth extraction H/O wrist surgery LEFT WRIST X 2 SURGERIES History of cholecystectomy History of colonoscopy History of esophagogastroduodenoscopy (EGD) History of gastrectomy secondary to PUD (OVER 10 YEARS AGO) History of hand surgery LEFT HAND FINGER REPAIR History of hysterectomy History of vascular access device MEDIPORT INTACT Family History Father Diabetes Mother Von Willebrand disease Grandmother (Paternal) Family hx of colon cancer Social History Smoking Status: Never smoker Second Hand Exposure: No; Do You Dip or Chew Tobacco: No; Tobacco Cessation Education Requested by Patient: No Hx Alcohol Use: Yes Alcohol type: wine Hx Substance Use: Yes Preferred Language: Indian Communication Ability: Unable Communication Ability Comment: Blind Airplane Dispatcher Required: No Beliefs That Will Affect Care: None marital status: Legally Current Living Situation: Alone Current Living Situation Comment: Lives with neighbor but does not feel safe, does not wish to elaborate current occupational status: disabled How many Children do You have: 2 Other Information That Helps Us Care for You: No Feels Safe at Home: Yes Safety Concerns: Afraid for Self Assistive Devices: Cane, Glasses, Hearing Aid - Bilateral, Hearing Aid - Left and Mechanical Lift Review of Systems Review of Systems: As per HPI, all other systems reviewed and negative Physical Exam Physical Exam: GENERAL: Slightly uncomfortable, underweight, chronically ill, no respiratory distress SKIN: Pallor, warm HEENT: Pale palpebral conjunctivae, no ptosis, dry buccal mucosa NECK : Supple, no tenderness CHEST : Decreased breath sounds ,no chest wall tenderness HEART : Tachycardic , no obvious murmurs ABDOMEN: Minimal distention, central abdominal tenderness EXTREMITIES : No LE swelling, no LE swelling, no other conspicuous deformities noted NEUROLOGIC : Coherent, no facial asymmetry, no other gross focality Results & Data Results & Data ([facility]) Vital Signs (Past 12 Hours) Vital Signs Temp Pulse Pulse Resp BP BP Pulse Ox 01/12/22 21:51 138 H 20 132/77 95 01/12/22 20:00 78 20 132/70 97 01/12/22 18:24 104 H 20 104/88 97 01/12/22 17:35 78 22 97 01/12/22 16:38 36.6 C 95 H 20 132/88 97 O2 Del Method 01/12/22 21:51 Room Air 01/12/22 20:00 01/12/22 18:24 Room Air 01/12/22 17:35 Room Air 01/12/22 16:38 Room Air Laboratory Results Laboratory Results WBC 7.56 K/ul (4.8-10.8) 01/12/22 17:32 RBC 3.33 M/uL (3.93-5.22) L 01/12/22 17:32 Hgb 10.2 g/dl (12.0-16.0) L 01/12/22 17:32 Hct 30.4 % (34.1-44.9) L 01/12/22 17: MCV 91.3 fL (80.0-100.0) 01/12/22: MCH 30.6 pg (25.0-34.0) 01/12/22: MCHC 33.6 g/dL (32.0-36.0) 01/12/22: RDW Std Deviation 54.4 fL (36.4-46.3) H 01/12/22: RDW Coeff of Lisa 16.2 % (11.5-14.5) H 01/12/22: Plt Count 307 K/uL (130-400) 01/12/22: MPV 10.6 fL (9.4-12.3) 01/12/22: Immature Gran % (Auto) 0.5 % 01/12/22: Neut % (Auto) 80.3 % 01/12/22 17: Lymph % (Auto) 9.7 % 01/12/22: [place] % (Auto) 8.5 % 01/12/22: Eos % (Auto) 0.1 % 01/12/22: Baso % (Auto) 0.9 % 01/12/22: Neut # (Auto) 6.07 K/uL (1.4-6.5) 01/12/22: Lymph # (Auto) 0.73 K/uL (1.2-3.4) L 01/12/22: [place] # (Auto) 0.64 K/uL (0.24-0.82) 01/12/22: Eos # (Auto) 0.01 K/uL (0-0.50) 01/12/22: Baso # (Auto) 0.07 K/uL (0-0.2) 01/12/22: Immature Gran # (Auto) 0.04 K/uL (0.00-0.02) H 01/12/22 17: PT 13.8 Seconds (9.0-12.0) H 01/12/22 17: INR 1.3 (0.9-1.1) H 01/12/22 17: Sodium 138 mmol/L (136-145) 01/12/22 17:32 Potassium 4.1 mmol/L (3.5-5.1) 01/12/22 17:32 Chloride 101 mmol/L (98-107) 01/12/22 17:32 Carbon Dioxide 24 mmol/L (21-32) 01/12/22 17:32 Anion Gap 13 (3-11) H 01/12/22 17:32 BUN 5 mg/dl (6-23) L 01/12/22 17:32 Creatinine 0.72 mg/dl (0.6-1.2) 01/12/22 17:32 Est Cr Clr Drug Dosing 80.2 ml/min 01/12/22 17:32 Est GFR ( Amer) 111.6 ml/min 01/12/22 17:32 Est GFR (Non-Af Amer) 96.3 ml/min 01/12/22 17:32 BUN/Creatinine Ratio 6.9 (10-20) L 01/12/22 17:32 Glucose 126 mg/dl (70-99(Fasting)) H 01/12/22 17:32 Calcium 8.0 mg/dl (8.5-10.1) L 01/12/22 17:32 Magnesium 1.9 mg/dl (1.7-2.4) 01/12/22 17:32 Total Bilirubin 1.5 mg/dl (0.2-1.0) H 01/12/22 17:32 AST 70 U/L (13-39) H 01/12/22 17:32 ALT 27 U/L (7-52) 01/12/22 17:32 Alkaline Phosphatase 215 U/L (34-104) H 01/12/22 17:32 Troponin I High Sens 7.2 pg/ml (0-14) 01/12/22 17:32 Total Protein 5.5 gm/dl (6.0-8.3) L 01/12/22 17:32 Albumin 2.4 gm/dl (3.4-5.0) L 01/12/22 17:32 Globulin 3.1 gm/dl (2.5-4.0) 01/12/22 17:32 Albumin/Globulin Ratio 0.8 (0.9-2) L 01/12/22 17:32 Lipase 3 U/L (11-82) L 01/12/22 17:32 TSH 5.226 uIu/ml (0.300-4.500) H 01/12/22 17:32 Free T4 0.98 ng/dl (0.61-1.60) 01/12/22 17:32 Ethyl Alcohol mg/dL < 10.0 mg/dl (<10.0) 01/12/22 17:32 Impressions Chest X-Ray 01/12/22 17:07 XR chest 1V portable CLINICAL HISTORY: weakness COMPARISON STUDY: Chest radiograph November 10, 2021. Chest CT October 14, 2021. FINDINGS: Right humeral internal fixation is incidentally noted. Multiple old bilateral rib fractures. Lung volumes are at the lower limits of normal. Lungs are clear. There is no pneumothorax or pleural effusion. Cardiac size is normal. Mediastinal contours are normal. There is no evidence for pulmonary edema. IMPRESSION: No acute cardiopulmonary findings. ACT 112: Negative or not required by law. Electronically signed by: Wilfrid Goldsmith M.D. 01/12/2022 5:[address] head initial read: No acute intracranial abnormality CT abdomen pelvis initial read: Normal cardiac size. Bilateral lower lobe atelectasis. Trace right-sided pleural effusion. Diffuse fattyliver. Status post cholecystectomy. Mild distention of the common bile duct small density in the the common bile duct at the level of the pancreatic head which could represent tinystones versus sludge. Otherwise normal pancreas. No intrahepatic bladder distention. Unremarkable spleen. Mild to moderate hiatal hernia. Otherwise unremarkable stomach. Diffuse thickening of wall throughout the colon consistent with colitis. Nonspecific small bowel with no dilatation to suggest obstruction. Normal appendix. Normal bilateral kidneys and adrenal glands. Normal aorta. Air within the anti-dependent portion of urinarybladder, commonlyassociated with sequela of prior catheterization. Remainder of the pelvic structures unremarkable. Right-sided hip prosthesis in place. Sequela of old fractures involving the bilateral superior and inferior pubic rami. Osteopeniawith degenerative disease of the spine. Severe compression fracture of L1. Moderate compression fracture of T11. Minimal anterolisthesis of L4 and L5. Mild compression fracture of L5. The exact age of the visualized fractures is indeterminate. EKG as per my interpretation : Rate 105, sinus tachycardia, normal axis, T wave flattening inferior leads, low voltage
[2022-01-13] MEDS ORDERED: GABAPENTIN 800 MG TAB PO STA (00:01)
[2022-01-13] MEDS ORDERED: LACTATED RINGER'S 1,000 ML IV ONE (01:19)
[2022-01-13] MEDS ORDERED: LORazepam 3 MG in SYRINGE 1.5 ML IV PRN (02:51)
[2022-01-13] MEDS ORDERED: Ativan IV Alcohol Withdrawal--Active Protocol IV PRN (02:51)
[2022-01-13] MEDS ORDERED: LORazepam 1 MG in SYRINGE 0.5 ML IV PRN (02:51)
[2022-01-13] MEDS ORDERED: LORazepam 2 MG in SYRINGE 1 ML IV PRN (02:51)
[2022-01-13] MEDS: THIAMINE HCL 100 MG TAB PO SCH ×2 (03:48→08:12)
[2022-01-13] MEDS: FOLIC ACID 1 MG TAB PO SCH ×2 (03:48→08:12)
--- NOTE | 2022-01-13 07:15 | CT Scan Report ---
CT head/brain wo con CLINICAL HISTORY: 51 years-old Female with billingsley, trauma. Acute headache with weakness status post trau ma TECHNIQUE: Multiple axial CT images of the head were obtained without contrast. A dose lowering tech nique was utilized adhering to the principles of ALARA. CT DOSE: 614.27 mGy.cm COMPARISON: Head CT 11/03/2021, brain MRI 01/09/2021. FINDINGS: No acute intracranial hemorrhage, midline shift, intracranial mass, hydrocephalus, territorial ischem ia or new abnormal extra-axial collection. Involutional changes with ex vacuo ventriculomegaly. White matter hypodensities suggest chronic microvascular ischemic disease. Subtle area of increased attenu ation involving the extra-axial space superior to the right frontal lobe on image 27 series 2 is unch anged from the 01/09/2021 brain MRI. The calvarium is intact. Polypoid mucosal thickening of the left maxillary sinus. The mastoid air ce lls are clear. IMPRESSION: No acute intracranial abnormality. ACT 112: Negative or not required by law. The above report was generated using voice recognition software. It may contain grammatical, syntax o r spelling errors. Electronically signed by: Rahat Blanco M.D. 01/13/2022 7:14 AM
[2022-01-13] MEDS: GABAPENTIN 400 MG CAP PO SCH ×3 (08:12→20:01)
[2022-01-13] MEDS: FEXOFENADINE HCL 180 MG TAB PO SCH (08:12)
[2022-01-13] MEDS: TOPIRAMATE 50 MG TAB PO SCH (08:12)
[2022-01-13] MEDS: PROMETHAZINE HCL 6.25 MG in SODIUM CHLORIDE 0.9% 50 ML IV PRN (08:16)
[2022-01-13] MEDS: PANTOprazole 40 MG TAB PO SCH ×2 (08:16→20:01)
[2022-01-13 08:47] LABS: Appearance Urine Cloudy (Clear); Bacteria Urine Automated 4+ (Negative); Bilirubin Urine Negative (Negative); Blood Urine Negative (Negative); Color Urine Yellow; Glucose Urine UA Negative (Negative); Ketones Urine Negative (Negative); Leukocyte Esterase Urine 2+ (Negative); Nitrite Urine Negative (Negative); Protein Urine Negative (Negative); RBC Urine Automated 0-4 /hpf (0-4); Specific Gravity Urine 1.019 (1.000-1.030); Urobilinogen Urine Negative (Negative); pH Urine 7.5 (4.5-7.5)
--- NOTE | 2022-01-13 08:54 | CT Scan Report ---
ABDOMEN AND PELVIS CT WITH IV CONTRAST CT DOSE: 243.60 mGy.cm HISTORY: Acute generalized abdominal pain abd pain TECHNIQUE: Multiaxial CT images of the abdomen and pelvis were performed following the IV administrat ion of 90 cc of Optiray, A dose lowering technique was utilized adhering to the principles of ALARA. COMPARISON STUDY: CT abdomen and pelvis 10/14/2021 FINDINGS: Trace pleural effusions with subsegmental bibasilar atelectasis. There is no pneumatosis or pneumoperitoneum. The spleen, moderately atrophic pancreas and adrenal glands are unremarkable. Hepa tomegaly with severe hepatic steatosis. No hepatic mass or evidence of cirrhosis. CSF the hepatic and portal veins. Cholecystectomy. There is suggestion of tiny stones within the distal common bile duct . The common bile duct is dilated measuring up to 1.4 cm along with mild intrahepatic biliary ductal dilation. Unremarkable kidneys. No hydronephrosis. Air within the urinary bladder lumen. Aorta and IVC are unre markable. Borderline enlarged inguinal chain lymph nodes are favored to be reactive. Mild periportal lymphadenopathy is also noted. Postoperative changes of the stomach are redemonstrated. There is part ial distention with diffuse wall thickening involving the majority of the colon. Normal appendix. Mil d diffuse body wall and mesenteric edema with trace abdominal ascites. Osseous of the anterior abdominal wall. Degenerative changes of the spine, pelvis and left. Subacute to chronic bilateral nondisplaced rib fractures. Chronic pelvic ring fractures. Unchanged thoracolumb ar compression deformities. IMPRESSION: 1. Mild diffuse wall thickening of the colon is suspicious for a nonspecific colitis. Partial distent ion of the colon could appear similarly. 2. No bowel obstruction. 3. Prior cholecystectomy. There is suggestion of tiny stones within the distal common bile duct with mild intrahepatic and extrahepatic biliary ductal dilation. Correlation with serum bilirubin recommen ded. 4. Trace pleural effusions with mesenteric and body wall edema and trace abdominal ascites. 5. Air within the urinary bladder lumen may be secondary to instrumentation versus gas forming organi sm. 6. Additional findings as above. ACT 112: Negative or not required by law. The above report was generated using voice recognition software. It may contain grammatical, syntax o r spelling errors. Electronically signed by: Rahat Blanco M.D. 01/13/2022 8:52 AM
[2022-01-13 09:04] LABS: Basophils # (auto) 0.05 K/uL (0-0.2); Basophils % (auto) 0.9 %; Eosinophils # (auto) 0.88 K/uL (0-0.50); Eosinophils % (auto) 15.9 %; Hematocrit (blood only) 29.1 % (34.1-44.9); Hemoglobin 9.6 g/dl (12.0-16.0); Immature Granulocytes # (auto) 0.01 K/uL (0.00-0.02); Immature Granulocytes % (auto) 0.2 %; Lymphocytes # (auto) 1.34 K/uL (1.2-3.4); Lymphocytes % (auto) 24.2 %; Mean Corpuscular Hemoglobin 30.4 pg (25.0-34.0); Mean Corpuscular Volume 92.1 fL (80.0-100.0); Mean Platelet Volume 10.7 fL (9.4-12.3); Monocytes # (auto) 0.45 K/uL (0.24-0.82); Monocytes % (auto) 8.1 %; Neutrophils # (auto) 2.81 K/uL (1.4-6.5); Neutrophils % (auto) 50.7 %; Platelet Count 197 K/uL (130-400); RDW Coefficient of Variation 16.6 % (11.5-14.5); RDW Standard Deviation 55.4 fL (36.4-46.3); Red Blood Count 3.16 M/uL (3.93-5.22); White Blood Count 5.54 K/ul (4.8-10.8)
[2022-01-13] MEDS: LORazepam 0.5 MG TAB PO PRN ×2 (09:20→20:32)
[2022-01-13 09:25] LABS: Albumin Globulin Ratio 0.8 (0.9-2); Albumin Level 2.1 gm/dl (3.4-5.0); BUN Creatinine Ratio 6.3 (10-20); Bilirubin,Total 1.8 mg/dl (0.2-1.0); Calcium 7.4 mg/dl (8.5-10.1); Creatinine Clr Calc Pharmacy 85.4 ml/min; Est GFR (African American) 119.5 ml/min; Est GFR (Non-African American) 103.1 ml/min; Globulin 2.7 gm/dl (2.5-4.0); Potassium 3.9 mmol/L (3.5-5.1); Total Protein 4.8 gm/dl (6.0-8.3)
[2022-01-13] MEDS: CEFEPIME 1,000 MG in SYRINGE 0 ML IV SCH ×2 (09:39→20:01)
[2022-01-13] MEDS: oxyCODONE HCL IR 5 MG TAB (IMMEDIATE RELEASE) PO PRN ×2 (09:45→16:37)
--- NOTE | 2022-01-13 12:31 | Hospitalist Progress Note ---
Date of Service January 13, 2022 Assessment & Plan (1) Tachycardia: Plan: Colitis --CT ABD:Mild diffuse wall thickening of the colon is suspicious for a nonspecific colitis. Partial distention of the colon could appear similarly. No bowel obstruction. Prior cholecystectomy. There is suggestion of tiny stones within the distal common bile duct with mild intrahepatic and extrahepatic biliary ductal dilation. Correlation with serum bilirubin recommended. Trace pleural effusions with mesenteric and body wall edema and trace abdominal ascites. Air within the urinary bladder lumen may be secondary to instrumentation versus gas forming organism. --Stool studies pending --Empirically on Cefepime -- Clear liquid diet for now GI Consulted Choledocholithiasis CT ABD as above Monitor LFTs GI consulted Suspected UTI H/O UTIs in the past UA suggestive of UTI Imaging showed Air within the urinary bladder lumen may be secondary to instrumentation versus gas forming organism. 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 withdrawal Continue thiamine, folic acid Continue home gabapentin Ativan as needed PUD S/P surgery Continue PPI Other Chronic Conditions H/O Von Willebrand's disease Seizure disorder Chronic anemia Anxiety/mood disorder Continue home meds H/O Traumatic subdural/rectus sheath hematoma Functional disability/unsafe home environment Patient noncompliant with social workers recommendations PT/OT eval as able DVT Px: SCDs for now Code Status DNR/DNI Admission and Anticipated Discharge Date Admission Date: January 12, 2022 Subjective Patient is seen and examined at bedside States having generalized abdominal pain, nausea, diarrhea Denies any chest pain, dyspnea, dizziness Also reports increased Urinary frequency Review of Systems Review of Systems: All systems reviewed & are unremarkable except as noted in Subjective Physical Exam Physical Exam: Physical Exam: Vitals signs as noted above General Appearance:Thin, Chronic ill appearing Head: normocephalic, Atraumatic Eyes: normal inspection, EOMI, +Legally blind Neck: supple, Trachea midline Respiratory/Chest: Normal breath sounds, CTA, No accessory muscle use Cardiovascular: S1, S2, No murmur Abdomen/GI:Soft, generalized tender, Bowel sounds present Extremities/Musculoskeletal:normal inspection, Trace LE edema Neurologic/Psych:AAOX3, grossly no focal neurological deficits Skin: normal color, warm Results & Data Results & Data ([facility]) Vital Signs (Past 12 Hours) Vital Signs Temp Pulse Pulse Resp BP BP BP 01/13/22 12:22 36.3 C L 97 H 18 121/81 01/13/22 08:27 36.6 C 90 18 118/96 01/13/22 06:08 68 01/13/22 02:59 96 H 01/13/22 04:02 36.6 C 87 18 102/69 01/13/22 02:57 36.9 C 111 H 20 109/89 01/13/22 01:30 84 16 111/68 01/13/22 01:00 93 H 18 108/79 01/13/22 00:30 96 H 17 100/68 Pulse Ox O2 Del Method 01/13/22 12:22 98 Room Air 01/13/22 08:27 93 Room Air 01/13/22 06:08 01/13/22 02:59 01/13/22 04:02 99 Room Air 01/13/22 02:57 99 Room Air 01/13/22 01:30 98 Room Air 01/13/22 01:00 97 Room Air 01/13/22 00:30 96 Room Air Laboratory Results Short CBC 01/12/22 01/13/22 Range/Units 17:32 08:38 WBC 7.56 5.54 (4.8-10.8) K/ul Hgb 10.2 L 9.6 L (12.0-16.0) g/dl Hct 30.4 L 29.1 L (34.1-44.9) % Plt Count 307 197 (130-400) K/uL BMP 01/12/22 01/13/22 17:32 08:38 Sodium 138 139 Potassium 4.1 3.9 Chloride 101 109 H Carbon Dioxide 24 25 BUN 5 L 4 L Creatinine 0.72 0.63 Glucose 126 H 68 L Calcium 8.0 L 7.4 L Liver Function 01/12/22 01/13/22 Range/Units 17:32 08:38 Total Bilirubin 1.5 H 1.8 H (0.2-1.0) mg/dl AST 70 H 59 H (13-39) U/L ALT 27 22 (7-52) U/L Alkaline Phosphatase 215 H 181 H (34-104) U/L Albumin 2.4 L 2.1 L (3.4-5.0) gm/dl Urine 01/13/22 Range/Units 08:30 Urine Color Yellow Urine Appearance Cloudy A (Clear) Urine pH 7.5 (4.5-7.5) Ur Specific [place] 1.019 (1.000-1.030) Urine Protein Negative (Negative) Urine Glucose (UA) Negative (Negative)
--- NOTE | 2022-01-13 13:06 | Gastrointestinal Consultation ---
Date of Consultation January 13, 2022 Assessment & Plan (1) Abdominal pain: Unsure whether it is related entirely to choledocholithiasis, as it could be secondary to Viral gastroenteritis vs. gastris vs. UTI vs. other Recommend Pantoprazole 40 mg by mouth Twice daily Continue pain control as needed via Hospitalist team (2) Nausea & vomiting: Improved since her admission Continue supportive care and antiemetics as needed (3) Abnormal CT of the abdomen: Consider outpatient colonoscopy for abnormal imaging findings This will be arranged with Greg SERRANO, her primary GI team (4) Choledocholithiasis: Discussed case with Dr. Brady who performs ERCP. He recommended an outpatient ERCP at [facility] as this cannot be performed at [facility] due to the patient's prior partial gastrectomy and need for Axios Stent His office will arrange with the patient History of Present Illness Reason for Consultation: Nausea, Vomiting, Diarrehea, Abnormal CT scan Attending Physician: Jesus Katz MD History of Present Illness Hiwot Palomino is a 51 yo CF with an extensive PMHx including alcohol abuse, history of PUD s/p partial gastrectomy, and prior cholecystectomy who presented to the ER on 01/12 with complaints of a 3 day history of abdominal pain, nausea with associated nausea and vomiting. She states that her symptoms worsened and she developed worsening generalized abdominal pain which prompted her evaluation at the ER. Upon arrival to the ER, she was noted to have a slightly low H/H of 10.2/30.4 with a BUN of 4 and Cr 0.63. Her Tbili was 1.5, AST 70, ALT 27, and Alk phos 215. She did have a CT scan of the Abd/Pelvis which showed, mild diffuse wall thickening of the colon is suspicious for a nonspecific colitis. Partial distention of the colon could appear similarly. No bowel obstruction. Prior cholecystectomy. There is suggestion of tiny stones within the distal common bile duct with mild intrahepatic and extrahepatic biliary ductal dilation. She did have findings consistent with a UTI and was started on C efepime. At the time I saw her, she states that her abdominal pain has improved, and is mainly in the epigastric and RUQ areas. She rates her pain at present at 3/10 in intensity, achy, non-radiating, with some improvement with narcotic analgesics. She denies any further vomiting, but has felt intermittently nauseated. She denies any further diarrhea. She further denies any fevers or chills, and has no further complaints. Allergies Allergy/AdvReac Type Severity Reaction Status Date / Time iron dextran complex Allergy Severe SOB, heart Verified 11/03/21 16:07 racing (see comments) cat dander Allergy Intermediate eye Verified 11/03/21 16:07 watering ceftriaxone Allergy Intermediate Hives Verified 11/03/21 16:07 ciprofloxacin Allergy Intermediate lips Verified 11/03/21 16:07 burning/peeling doxycycline Allergy Intermediate hives, Verified 11/03/21 16:07 vomiting iron Allergy Intermediate Hives Verified 11/13/21 13:21 latex Allergy Intermediate mouth Verified 11/03/21 16:07 hives/burning sensation Penicillins Allergy Intermediate Hives Verified 11/03/21 16:07 Quinolones Allergy Intermediate Hives Verified 11/03/21 16:07 Sulfa (Sulfonamide Allergy Intermediate hives Verified 11/03/21 16:07 Antibiotics) Aminoglycosides Allergy Unknown unknown Verified 11/03/21 16:07 reaction tobramycin AdvReac Severe blindness Verified 11/03/21 16:07 citalopram AdvReac Mild restlessnes Verified 11/03/21 16:07 s Home Medications Medication Instructions Recorded Confirmed Type pantoprazole 40 mg tablet,delayed 40 mg PO BID 01/29/18 01/12/22 History release (Protonix) gabapentin 400 mg capsule 400 mg PO TID 11/18/18 01/12/22 History fexofenadine 180 mg tablet 180 mg PO DAILY 09/22/19 01/12/22 History (Maame Allergy) lorazepam 1 mg tablet 0.5 - 1 mg PO TID PRN Anxiety 04/12/20 01/12/22 History promethazine 25 mg tablet 25 mg PO Q8H PRN Nausea 09/01/20 01/12/22 History acetaminophen 325 mg tablet 650 mg PO Q6 PRN Fever Or Pain 10/14/21 01/12/22 History albuterol sulfate 90 mcg/actuation 2 puff inhalation QID PRN 10/14/21 01/12/22 History aerosol inhaler Shortness Of Breath Or Wheezing mupirocin 2 % topical ointment 1 applic topical BID 11/03/21 01/12/22 History torsemide 20 mg tablet 20 mg PO DAILY PRN swelling 11/03/21 01/12/22 History triamcinolone acetonide 0.1 % 1 applic topical BID 11/03/21 01/12/22 History topical cream cyclobenzaprine 10 mg tablet 10 mg PO TID PRN muscle spasm #90 11/13/21 01/12/22 Rx tabs ondansetron 4 mg disintegrating 4 mg PO Q8H PRN nausea and 11/13/21 01/12/22 Rx tablet vomiting #60 tabs potassium chloride 20 mEq 20 meq PO DAILY PRN with 11/13/21 01/12/22 Rx tablet,extended release(part/cryst) toresemide #0 tabs diclofenac sodium 1 % topical gel 2 g EXT TID PRN Pain 01/12/22 01/12/22 History (Voltaren Arthritis Pain) ibuprofen 200 mg tablet 200 mg PO BID PRN Pain 01/12/22 01/12/22 History oxycodone 5 mg tablet 5 mg PO Q6 PRN Pain 01/12/22 01/12/22 History topiramate 25 mg tablet 50 mg PO DAILY 01/12/22 01/12/22 History trazodone 50 mg tablet 50 mg PO HS PRN Sleep 01/12/22 01/12/22 History Patient History Medical History (Updated 01/13/22 @ 13:16 by Dev Hawkins, DO) Anemia hx of blood transfusion (post-operatively 10/2018) Anxiety 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 Lanza Surgical History H/O foot surgery RT HEEL SURGERY X 2 (HARDWARE INTACT) TOE CORRECTION X 3 (PINS INTACT ON RT FOOT) H/O shoulder surgery RT HUMERUS FX REPAIRED (HARDWARE INTACT) H/O wisdom tooth extraction H/O wrist surgery LEFT WRIST X 2 SURGERIES History of cholecystectomy History of colonoscopy History of esophagogastroduodenoscopy (EGD) History of gastrectomy secondary to PUD (OVER 10 YEARS AGO) History of hand surgery LEFT HAND FINGER REPAIR History of hysterectomy History of vascular access device MEDIPORT INTACT Family History Father Diabetes Mother Von Willebrand disease Grandmother (Paternal) Family hx of colon cancer Social History Smoking Status: Never smoker Second Hand Exposure: No; Do You Dip or Chew Tobacco: No; Tobacco Cessation Education Requested by Patient: No Hx Alcohol Use: Yes Alcohol type: wine Hx Substance Use: Yes Preferred Language: Amharic Communication Ability: Unable Communication Ability Comment: Blind Service 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 Required: No Beliefs That Will Affect Care: None marital status: Legally Current Living Situation: Alone Current Living Situation Comment: Lives with neighbor but does not feel safe, does not wish to elaborate current occupational status: disabled How many Children do You have: 2 Other Information That Helps Us Care for You: No Feels Safe at Home: Yes Safety Concerns: Afraid for Self Assistive Devices: Cane, Glasses, Hearing Aid - Bilateral, Hearing Aid - Left and Mechanical Lift Review of Systems Review of Systems: All systems reviewed & are unremarkable except as noted in Subjective Physical Exam Constitutional: WD/WN, vitals as above ENMT: external ear and nose normal, oropharynx normal Neck: trachea midline, no thyromegaly Respiratory: normal respiratory effort, lungs clear to auscultation Cardiovascular: RRR, no murmur, no edema Gastrointestinal (Abdomen): normal bowel sounds, soft, nontender, no hepatosplenomegaly Skin: no rashes, warm and dry Psychiatric: A+Ox3, euthymic affect Results & Data ([facility]) Vital Signs (Past 12 Hours) Vital Signs Temp Pulse Pulse Resp BP BP BP 01/13/22 12:22 36.3 C L 97 H 18 121/81 01/13/22 08:27 36.6 C 90 18 118/96 01/13/22 06:08 68 01/13/22 02:59 96 H 01/13/22 04:02 36.6 C 87 18 102/69 01/13/22 02:57 36.9 C 111 H 20 109/89 01/13/22 01:30 84 16 111/68 Pulse Ox O2 Del Method 01/13/22 12:22 98 Room Air 01/13/22 08:27 93 Room Air 01/13/22 06:08 01/13/22 02:59 01/13/22 04:02 99 Room Air 01/13/22 02:57 99 Room Air 01/13/22 01:30 98 Room Air PG Care Time/CCT Total # of Minutes Spent Total Time Spent with Patient: Total time spent is greater than 50% in coordination of care (as documented) at patient's floor/unit and/or counseling patient: Coding Level of Care Code 77429 Inpt Consult Level 4 Diagnoses Abdominal pain R10.9 Nausea & vomiting R11.[address] of the abdomen R93.5 Choledocholithiasis K80.50
[2022-01-13] MEDS ORDERED: LACTATED RINGER'S 1,000 ML IV SCH (14:00)
--- NOTE | 2022-01-13 15:02 | Electrocardiogram Report ---
Test Reason : Blood Pressure : / mmHG Vent. Rate : 105 BPM Atrial Rate : 105 BPM P-R Int : 130 ms QRS Dur : 050 ms QT Int : 336 ms P-R-T Axes : 033 019 029 degrees QTc Int : 444 ms Poor data quality, interpretation may be adversely affected Sinus tachycardia Low voltage QRS Borderline ECG When compared with ECG of 03-NOV-2021 08:31, Nonspecific T wave abnormality no longer evident in Lateral leads Confirmed by Juancho Lopez ([id number]) on 01/13/2022 3:01:40 PM Referred By: REFERRED SELF Confirmed By:Juancho Lopez
[2022-01-13] MEDS ORDERED: POTASSIUM CHLORIDE CRTAB 20 MEQ TABCR PO ONE (17:01)
[2022-01-13] MEDS: ACETAMINOPHEN 325 MG TAB PO PRN (18:40)
[2022-01-13] MEDS: SODIUM CHLORIDE 0.9% 500 ML IV SCH ×6 (19:32→21:47)
[2022-01-13] MEDS: traZODone HCL 50 MG TAB PO PRN (20:32)
[2022-01-14 06:20] LABS: Hematocrit (blood only) 24.6 % (34.1-44.9); Hemoglobin 8.3 g/dl (12.0-16.0); Mean Corpuscular Hemoglobin 31.1 pg (25.0-34.0); Mean Corpuscular Hgb Conc 33.7 g/dL (32.0-36.0); Mean Corpuscular Volume 92.1 fL (80.0-100.0); Mean Platelet Volume 11.2 fL (9.4-12.3); Platelet Count 140 K/uL (130-400); RDW Coefficient of Variation 17.2 % (11.5-14.5); RDW Standard Deviation 57.7 fL (36.4-46.3); Red Blood Count 2.67 M/uL (3.93-5.22); White Blood Count 4.75 K/ul (4.8-10.8)
[2022-01-14 06:35] LABS: INR 1.5 (0.9-1.1); Prothrombin Time 15.4 Seconds (9.0-12.0)
[2022-01-14 06:44] LABS: Albumin Globulin Ratio 0.8 (0.9-2); Albumin Level 1.9 gm/dl (3.4-5.0); BUN Creatinine Ratio 5.1 (10-20); Bilirubin,Total 1.5 mg/dl (0.2-1.0); Calcium 7.2 mg/dl (8.5-10.1); Creatinine Clr Calc Pharmacy 74.1 ml/min; Est GFR (African American) 99.8 ml/min; Est GFR (Non-African American) 86.1 ml/min; Globulin 2.3 gm/dl (2.5-4.0); Magnesium 1.8 mg/dl (1.7-2.4); Potassium 3.4 mmol/L (3.5-5.1); Total Protein 4.2 gm/dl (6.0-8.3)
[2022-01-14] MEDS ORDERED: POTASSIUM CHLORIDE CRTAB 20 MEQ TABCR PO ONE (08:05)
[2022-01-14] MEDS: CEFEPIME 1,000 MG in SYRINGE 0 ML IV SCH ×2 (08:09→20:45)
[2022-01-14] MEDS: LORazepam 0.5 MG TAB PO PRN ×2 (08:09→20:56)
[2022-01-14] MEDS: PANTOprazole 40 MG TAB PO SCH ×2 (08:10→20:57)
[2022-01-14] MEDS: GABAPENTIN 400 MG CAP PO SCH ×3 (08:10→20:57)
[2022-01-14] MEDS: THIAMINE HCL 100 MG TAB PO SCH (08:11)
[2022-01-14] MEDS: FEXOFENADINE HCL 180 MG TAB PO SCH (08:11)
[2022-01-14] MEDS: FOLIC ACID 1 MG TAB PO SCH (08:11)
[2022-01-14] MEDS: TOPIRAMATE 50 MG TAB PO SCH (08:11)
--- NOTE | 2022-01-14 08:28 | Communication Note ---
Date of Service: January 14, 2022 Greg GI asked to review, plan for outpatient endoscopy and EDGE given RYGB anatomy and choledocholithiasis. This will be arranged at [facility] in the next week. Per nursing staff, no BM, specifically no diarrhea since admission. No report of black or bloody stools. Would continue with plan per consultation note yesterday, including PPI BID, antiemetics PRN. Will sign off. Recall as needed.
[2022-01-14] MEDS: NSS + 20MEQ KCL 20 MEQ/1,000 ML BAG IV SCH ×2 (09:02→16:34)
[2022-01-14] MEDS: metroNIDAZOLE 500 MG/100 ML BAG IV SCH ×2 (09:39→17:10)
--- NOTE | 2022-01-14 10:23 | Electrocardiogram Report ---
Test Reason : Blood Pressure : / mmHG Vent. Rate : 130 BPM Atrial Rate : 130 BPM P-R Int : 120 ms QRS Dur : 052 ms QT Int : 274 ms P-R-T Axes : 010 022 249 degrees QTc Int : 403 ms Poor data quality, interpretation may be adversely affected Sinus tachycardia Low voltage QRS Nonspecific T wave abnormality Abnormal ECG When compared with ECG of 12-JAN-2022 16:41, Nonspecific T wave abnormality now evident in Anterolateral leads Confirmed by Erickson Hopson ([id number]) on 01/14/2022 10:23:04 AM Referred By: REFERRED SELF Confirmed By:Erickson Hopson
[2022-01-14 14:26] LABS: A calco-baum cmplx NotReported Not Detected (NotDetected); Bact fragilis Not Reported Not Detected (NotDetected); C auris Not Reported Not Detected (NotDetected); Calbicans Not Reported Not Detected (NotDetected); Candida glabrata Not Reported Not Detected (NotDetected); Candida krusei Not Reported Not Detected (NotDetected); Cneoformans/gatti Not Reported Not Detected (NotDetected); Cparapsilosis Not Reported Not Detected (NotDetected); Ctropicalis Not Reported Not Detected (NotDetected); E cloacae compx Not Reported Not Detected (NotDetected); Efaecalis Not Reported Not Detected (NotDetected); Efaecium Not Reported Not Detected (NotDetected); Enterobacterales Not Reported Not Detected (NotDetected); Escherichia coli Not Reported Not Detected (NotDetected); H influenzae Not Reported Not Detected (NotDetected); K aerogenes Not Reported Not Detected (NotDetected); Koxytoca Not Reported Not Detected (NotDetected); Kpneumoniae grp Not Reported Not Detected (NotDetected); Lmonocyt Not Reported Not Detected (NotDetected); N meningitidis Not Reported Not Detected (NotDetected); P aeruginosa Not Reported Not Detected (NotDetected); Proteus spp Not Reported Not Detected (NotDetected); Salmonella spp Not Reported Not Detected (NotDetected); Smarcescens Not Reported Not Detected (NotDetected); Staph lugdunensis Not Reported Not Detected (NotDetected); Staph spp. Not Reported DETECTED (NotDetected); Staphaureus Not Reported Not Detected (NotDetected); Staphepi Not Reported Not Detected (NotDetected); Stenmaltophilia Not Reported Not Detected (NotDetected); Strep agal(GrpB) Not Reported Not Detected (NotDetected); Strep pneum Not Reported Not Detected (NotDetected); Strep pyog (GrpA) Not Reported Not Detected (NotDetected); Strep spp Not Reported Not Detected (NotDetected)
[2022-01-14 14:31] LABS: Staphylococcus spp. DETECTED (NotDetected)
[2022-01-14] MEDS ORDERED: VANCOMYCIN CONSULT ACTIVE PRN (14:46)
[2022-01-14] MEDS ORDERED: VANCOMYCIN HCL 500 MG in DEXTROSE 5% 100 ML IV SCH (14:50)
--- NOTE | 2022-01-14 16:15 | Electrocardiogram Report ---
Test Reason : Blood Pressure : / mmHG Vent. Rate : 129 BPM Atrial Rate : 129 BPM P-R Int : 112 ms QRS Dur : 044 ms QT Int : 276 ms P-R-T Axes : 045 026 026 degrees QTc Int : 404 ms Poor data quality, interpretation may be adversely affected Sinus tachycardia Low voltage QRS Nonspecific T wave abnormality Abnormal ECG When compared with ECG of 13-JAN-2022 16:26, (unconfirmed) No significant change was found Confirmed by Erickson Hopson ([id number]) on 01/14/2022 4:14:35 PM Referred By: REFERRED SELF Confirmed By:Erickson Hopson
--- NOTE | 2022-01-14 17:42 | Hospitalist Progress Note ---
Date of Service January 14, 2022 Assessment & Plan (1) Tachycardia: Plan: Colitis --CT ABD:Mild diffuse wall thickening of the colon is suspicious for a nonspecific colitis. Partial distention of the colon could appear similarly. No bowel obstruction. Prior cholecystectomy. There is suggestion of tiny stones within the distal common bile duct with mild intrahepatic and extrahepatic biliary ductal dilation. Correlation with serum bilirubin recommended. Trace pleural effusions with mesenteric and body wall edema and trace abdominal ascites. Air within the urinary bladder lumen may be secondary to instrumentation versus gas forming organism. --Check Stool studies if recurrence of diarrhea --Empirically on Cefepime, Flagyl --Advance diet as tolerated Appreciate GI Input Choledocholithiasis CT ABD as above Monitor LFTs Appreciate GI Input Plan for outpatient endoscopy and EDGE given RYGB anatomy and choledocholithiasis Needs follow-up with GI upon discharge Hypokalemia Replace as needed Suspected Bacteremia 1/2 Blood Cx: Gram-positive cocci in clusters Likely contamination Repeat blood cultures tomorrow Follow-up cultures UTI H/O UTIs in the past Imaging showed Air within the urinary bladder lumen may be secondary to instrumentation versus gas forming organism. 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 Continue thiamine, folic acid Continue home gabapentin Ativan as needed PUD S/P surgery Continue PPI Other Chronic Conditions H/O Von Willebrand's disease Seizure disorder Chronic anemia Anxiety/mood disorder Continue home meds H/O Traumatic subdural/rectus sheath hematoma Functional disability/unsafe home environment Patient noncompliant with social workers recommendations PT/OT eval as able DVT Px: Heparin SQ Code Status DNR/DNI Admission and Anticipated Discharge Date Admission Date: January 13, 2022 Subjective Patient is seen and examined at bedside States feeling better today Less nausea, abdominal pain today No diarrhea since hospitalization Tolerating food No other complaints Denies any chest pain, dyspnea, dizziness Review of Systems Review of Systems: All systems reviewed & are unremarkable except as noted in Subjective Physical Exam Physical Exam: Physical Exam: Vitals signs as noted above General Appearance:Thin, Chronic ill appearing Head: normocephalic, Atraumatic Eyes: normal inspection, EOMI, +Legally blind Neck: supple, Trachea midline Respiratory/Chest: Normal breath sounds, CTA, No accessory muscle use Cardiovascular: S1, S2, No murmur Abdomen/GI:Soft, mild generalized tender, Bowel sounds present Extremities/Musculoskeletal:normal inspection, Trace LE edema Neurologic/Psych:AAOX3, grossly no focal neurological deficits Skin: normal color, warm Results & Data Results & Data ([facility]) Vital Signs (Past 12 Hours) Vital Signs Temp Pulse Pulse Resp BP Pulse Ox O2 Del Method 01/14/22 15:45 37.1 C 18 102/60 97 Room Air 01/14/22 11:04 37.1 C 105 H 18 98/62 L 94 Room Air 01/14/22 10:41 Room Air 01/14/22 06:25 124 H 01/14/22 10:02 106 H 96/54 L 01/14/22 07:40 36.4 C L 123 H 16 83/62 L 96 Room Air Laboratory Results Short CBC 01/14/22 Range/Units 05:47 WBC 4.75 L (4.8-10.8) K/ul Hgb 8.3 L (12.0-16.0) g/dl Hct 24.6 L (34.1-44.9) % Plt Count 140 (130-400) K/uL BMP 01/14/22 05:47 Sodium 139 Potassium 3.4 L Chloride 111 H Carbon Dioxide 24 BUN 4 L Creatinine 0.79 Glucose 70 Calcium 7.2 L Liver Function 01/14/22 Range/Units 05:47 Total Bilirubin 1.5 H (0.2-1.0) mg/dl AST 64 H (13-39) U/L ALT 20 (7-52) U/L Alkaline Phosphatase 152 H (34-104) U/L Albumin 1.9 L (3.4-5.0) gm/dl
[2022-01-14] MEDS: traZODone HCL 50 MG TAB PO PRN (20:56)
[2022-01-14] MEDS: oxyCODONE HCL IR 5 MG TAB (IMMEDIATE RELEASE) PO PRN (20:56)
[2022-01-14] MEDS: HEPARIN SOD 5,000 UNIT/0.5 ML VIAL SQ SCH (20:57)
[2022-01-14] MEDS: PROMETHAZINE HCL 6.25 MG in SODIUM CHLORIDE 0.9% 50 ML IV PRN (21:23)
[2022-01-14] MEDS ORDERED: VANCOMYCIN HCL 1,250 MG in SODIUM CHLORIDE 0.9% 250 ML IV ONE (22:30)
[2022-01-15] MEDS: metroNIDAZOLE 500 MG/100 ML BAG IV SCH ×3 (00:43→16:41)
[2022-01-15] MEDS ORDERED: VANCOMYCIN CONSULT ACTIVE PRN (01:14)
[2022-01-15] MEDS: NSS + 20MEQ KCL 20 MEQ/1,000 ML BAG IV SCH ×2 (02:09→07:42)
[2022-01-15] MEDS: ACETAMINOPHEN 325 MG TAB PO PRN (03:47)
[2022-01-15] MEDS ORDERED: KETOROLAC TROMETHAMINE 15 MG/ML VIAL IV ONE (03:59)
[2022-01-15] MEDS ORDERED: ALBUMIN 25% 100 mL 25 GM/100 ML VIAL IV ONE ×2 (03:59→23:52)
[2022-01-15] MEDS ORDERED: POTASSIUM CHLORIDE PWD 20 MEQ PACK PO STA (04:01)
[2022-01-15] MEDS ORDERED: MAGNESIUM SULFATE / D5W 1 GM/100 ML BAG IV ONE ×2 (04:30→08:47)
[2022-01-15 05:40] LABS: Albumin Globulin Ratio 0.8 (0.9-2); BUN Creatinine Ratio 5.1 (10-20); Bilirubin,Total 1.7 mg/dl (0.2-1.0); Creatinine Clr Calc Pharmacy 59.8 ml/min; Est GFR (African American) 76.9 ml/min; Est GFR (Non-African American) 66.3 ml/min; Globulin 2.5 gm/dl (2.5-4.0); Magnesium 1.6 mg/dl (1.7-2.4); Potassium 4.2 mmol/L (3.5-5.1); Total Protein 4.5 gm/dl (6.0-8.3)
[2022-01-15 06:19] LABS: Hemoglobin 8.4 g/dl (12.0-16.0); Mean Corpuscular Hemoglobin 30.9 pg (25.0-34.0); Mean Corpuscular Hgb Conc 33.6 g/dL (32.0-36.0); Mean Corpuscular Volume 91.9 fL (80.0-100.0); Mean Platelet Volume 11.2 fL (9.4-12.3); Platelet Count 125 K/uL (130-400); RDW Coefficient of Variation 17.6 % (11.5-14.5); RDW Standard Deviation 58.4 fL (36.4-46.3); Red Blood Count 2.72 M/uL (3.93-5.22); White Blood Count 6.72 K/ul (4.8-10.8)
[2022-01-15 06:20] LABS: Basophils # (auto) 0.03 K/uL (0-0.2); Basophils % (auto) 0.4 %; Echinocytes 1+; Eosinophils # (auto) 0.09 K/uL (0-0.50); Eosinophils % (auto) 1.3 %; Immature Granulocytes # (auto) 0.04 K/uL (0.00-0.02); Immature Granulocytes % (auto) 0.6 %; Lymphocytes # (auto) 0.29 K/uL (1.2-3.4); Lymphocytes % (auto) 4.3 %; Monocytes # (auto) 0.18 K/uL (0.24-0.82); Monocytes % (auto) 2.7 %; Neutrophils # (auto) 6.09 K/uL (1.4-6.5); Neutrophils % (auto) 90.7 %
[2022-01-15] MEDS: VANCOMYCIN HCL 750 MG in SODIUM CHLORIDE 0.9% 250 ML IV SCH ×2 (07:43→20:51)
[2022-01-15] MEDS: CEFEPIME 1,000 MG in SYRINGE 0 ML IV SCH ×2 (07:43→20:52)
[2022-01-15] MEDS: oxyCODONE HCL IR 5 MG TAB (IMMEDIATE RELEASE) PO PRN ×3 (07:46→20:52)
[2022-01-15] MEDS: GABAPENTIN 400 MG CAP PO SCH ×3 (07:47→20:51)
[2022-01-15] MEDS: FOLIC ACID 1 MG TAB PO SCH (07:47)
[2022-01-15] MEDS: HEPARIN SOD 5,000 UNIT/0.5 ML VIAL SQ SCH ×2 (07:48→20:53)
[2022-01-15] MEDS: FEXOFENADINE HCL 180 MG TAB PO SCH (07:48)
[2022-01-15] MEDS: TOPIRAMATE 50 MG TAB PO SCH (07:48)
[2022-01-15] MEDS: THIAMINE HCL 100 MG TAB PO SCH (07:48)
[2022-01-15] MEDS: PANTOprazole 40 MG TAB PO SCH ×2 (07:48→20:51)
[2022-01-15] MEDS: LORazepam 0.5 MG TAB PO PRN ×3 (08:00→23:15)
[2022-01-15] MEDS ORDERED: SODIUM CHLORIDE 0.9% 1000ML 500 ML IV ONE (08:43)
--- NOTE | 2022-01-15 11:03 | Pharmacy Report ---
Pharmacy PK ABX Note - Date of Service January 15, 2022 - Assessment and Plan Assessment 51 year old F receiving IV vancomycin, cefepime and flagyl empirically in setting of colitis, UTI, and now (+) blood cultures. Spiking fevers overnight and BPs soft on cefepime monotherapy. Urine culture (+) E.coli, blood culture now (+) Staph spp in 2/4 (no sensitivities to follow). Biofire (+) Staph spp ( not Staph aureus, Staph epidermidis, or Staph lugdunensis). Repeat blood cultures pending. SCr increased to ~1mg/dL this AM (baseline~0.6)- will monitor closely. Day #1 of antimicrobial therapy. Plan Vancomycin * Loading dose: 1250 mg IV x 1 * Maintenance dose: 750 mg IV every 12 hours * Regimen is predicted to achieve target AUC/VIANCA of 400-600 mg/L.hr * Random level tomorrow AM Pharmacy will continue to follow and will adjust dose/frequency as necessary. Thank you. Pharmacy has transitioned to AUC monitoring for vancomycin. AUC/VIANCA is the preferred PK/PD target and is associated with decreased risk of nephrotoxicity compared to traditional trough targets.
--- NOTE | 2022-01-15 13:35 | Hospitalist Progress Note ---
Date of Service January 15, 2022 Assessment & Plan (1) Tachycardia: Plan: Colitis --CT ABD:Mild diffuse wall thickening of the colon is suspicious for a nonspecific colitis. Partial distention of the colon could appear similarly. No bowel obstruction. Prior cholecystectomy. There is suggestion of tiny stones within the distal common bile duct with mild intrahepatic and extrahepatic biliary ductal dilation. Correlation with serum bilirubin recommended. Trace pleural effusions with mesenteric and body wall edema and trace abdominal ascites. Air within the urinary bladder lumen may be secondary to instrumentation versus gas forming organism. --Check Stool studies if recurrence of diarrhea --on Cefepime, Flagyl --Tolerating diet Appreciate GI Input No diarrhea since hospitalization Choledocholithiasis CT ABD as above Monitor LFTs Appreciate GI Input Plan for outpatient endoscopy and EDGE given RYGB anatomy and choledocholithiasis Needs follow-up with GI upon discharge Hypokalemia Hypomagnesemia Replace as needed Suspected Bacteremia 2/2 Blood Cx: Staph Species Likely contamination Repeat blood cultures pending Follow-up cultures Added Vancomycin given fever, hypotension and pending cultures Normal lactate levels Hypotension Likely multifactorial Continue IV fluids Start Midodrine Monitor BP closely UTI H/O UTIs in the past Imaging showed Air within the urinary bladder lumen may be secondary to instrumentation versus gas forming organism. 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 Continue thiamine, folic acid Continue home gabapentin Ativan as needed PUD S/P surgery Continue PPI Other Chronic Conditions H/O Von Willebrand's disease Seizure disorder Chronic anemia Anxiety/mood disorder Continue home meds H/O Traumatic subdural/rectus sheath hematoma Functional disability/unsafe home environment Patient noncompliant with social workers recommendations PT/OT eval as able DVT Px: Heparin SQ Code Status DNR/DNI Admission and Anticipated Discharge Date Admission Date: January 13, 2022 Subjective Patient is seen and examined at bedside Febrile overnight Tolerating food Nausea, abdominal pain better today Denies any chest pain, dyspnea, dizziness No new complaints Review of Systems Review of Systems: All systems reviewed & are unremarkable except as noted in Subjective Physical Exam Physical Exam: Physical Exam: Vitals signs as noted above General Appearance:Thin, Chronic ill appearing Head: normocephalic, Atraumatic Eyes: normal inspection, EOMI, +Legally blind Neck: supple, Trachea midline Respiratory/Chest: Normal breath sounds, CTA, No accessory muscle use Cardiovascular: S1, S2, No murmur Abdomen/GI:Soft, mild generalized tender, Bowel sounds present Extremities/Musculoskeletal:normal inspection, Trace LE edema Neurologic/Psych:AAOX3, grossly no focal neurological deficits Skin: normal color, warm Results & Data Results & Data ([facility]) Vital Signs (Past 12 Hours) Vital Signs Temp Pulse Resp BP Pulse Ox O2 Del Method 01/15/22 11:25 37 C 90 18 92/58 L 100 Room Air 01/15/22 08:09 37.1 C 110 H 18 96 Room Air 01/15/22 05:40 38.8 C H 133 H 01/15/22 04:35 39.4 C H 141 H 18 01/15/22 03:41 39.4 C H 156 H 18 93/63 L 94 Room Air Laboratory Results Short CBC 01/15/22 Range/Units 04:50 WBC 6.72 (4.8-10.8) K/ul Hgb 8.4 L (12.0-16.0) g/dl Hct 25.0 L (34.1-44.9) % Plt Count 125 L (130-400) K/uL BMP 01/15/22 04:50 Sodium 138 Potassium 4.2 D Chloride 113 H Carbon Dioxide 21 BUN 5 L Creatinine 0.98 Glucose 76 Calcium 7.0 L Liver Function 01/15/22 Range/Units 04:50 Total Bilirubin 1.7 H (0.2-1.0) mg/dl AST 81 H (13-39) U/L ALT 23 (7-52) U/L Alkaline Phosphatase 168 H (34-104) U/L Albumin 2.0 L (3.4-5.0) gm/dl
[2022-01-15] MEDS: PROMETHAZINE HCL 6.25 MG in SODIUM CHLORIDE 0.9% 50 ML IV PRN (14:00)
--- NOTE | 2022-01-15 14:03 | Electrocardiogram Report ---
Test Reason : Blood Pressure : / mmHG Vent. Rate : 130 BPM Atrial Rate : 130 BPM P-R Int : 114 ms QRS Dur : 058 ms QT Int : 304 ms P-R-T Axes : 032 019 032 degrees QTc Int : 447 ms Sinus tachycardia Low voltage QRS Borderline ECG When compared with ECG of 14-JAN-2022 06:43, Nonspecific T wave abnormality no longer evident in Anterolateral leads Confirmed by Erickson Hopson ([id number]) on 01/15/2022 2:02:36 PM Referred By: REFERRED SELF Confirmed By:Erickson Hopson
[2022-01-15] MEDS: SODIUM CHLORIDE 0.9% 1000ML 1,000 ML IV SCH (14:16)
[2022-01-15] MEDS: MIDODRINE HCL 2.5 MG TAB PO SCH (16:42)
[2022-01-15] MEDS: traZODone HCL 50 MG TAB PO PRN (20:52)
[2022-01-15] MEDS ORDERED: FUROSEMIDE INJ 20 MG/2 ML VIAL IV ONE (23:52)
--- NOTE | 2022-01-15 23:53 | Communication Note ---
Date of Service: January 15, 2022 Third spacing noted by RN on exam. (Bibasilar crackles with edematous skin) AP Third spacing/fluid overload hx cirrhosis Hold NSS Lasix albumin 1 dose
[2022-01-16] MEDS: PROMETHAZINE HCL 6.25 MG in SODIUM CHLORIDE 0.9% 50 ML IV PRN ×2 (00:17→10:22)
[2022-01-16] MEDS: SODIUM CHLORIDE 0.9% 1000ML 1,000 ML IV SCH (01:05)
[2022-01-16] MEDS: metroNIDAZOLE 500 MG/100 ML BAG IV SCH ×3 (02:46→18:26)
[2022-01-16 06:03] LABS: INR 1.9 (0.9-1.1); Prothrombin Time 19.3 Seconds (9.0-12.0)
[2022-01-16 06:23] LABS: Albumin Level 2.2 gm/dl (3.4-5.0); BUN Creatinine Ratio 8.4 (10-20); Bilirubin Direct 0.6 mg/dl (0-0.2); Bilirubin,Total 1.1 mg/dl (0.2-1.0); Calcium 7.1 mg/dl (8.5-10.1); Creatinine Clr Calc Pharmacy 70.6 ml/min; Est GFR (Non-African American) 81.1 ml/min; Magnesium 1.8 mg/dl (1.7-2.4); Potassium 3.4 mmol/L (3.5-5.1); Total Protein 4.3 gm/dl (6.0-8.3)
[2022-01-16 06:27] LABS: Platelet Estimate Decreased (Normal)
[2022-01-16 06:31] LABS: Hematocrit (blood only) 22.1 % (34.1-44.9); Hemoglobin 7.3 g/dl (12.0-16.0); Mean Corpuscular Hemoglobin 31.2 pg (25.0-34.0); Mean Corpuscular Volume 94.4 fL (80.0-100.0); Mean Platelet Volume 11.6 fL (9.4-12.3); Platelet Count 96 K/uL (130-400); RDW Coefficient of Variation 17.7 % (11.5-14.5); RDW Standard Deviation 60.1 fL (36.4-46.3); Red Blood Count 2.34 M/uL (3.93-5.22); White Blood Count 3.95 K/ul (4.8-10.8)
--- NOTE | 2022-01-16 07:21 | Pharmacy Report ---
Pharmacy PK ABX Note - Date of Service January 16, 2022 - Assessment and Plan Assessment 51 year old F receiving IV vancomycin, cefepime and flagyl empirically in setting of colitis, UTI, and now (+) blood cultures. Spiking fevers overnight and BPs soft on cefepime monotherapy. Urine culture (+) E.coli, blood culture now (+) Staph spp in 2/4 (no sensitivities to follow). Biofire (+) Staph spp ( not Staph aureus, Staph epidermidis, or Staph lugdunensis). Repeat blood cultures pending. Kidney function stable currently. Day #3 of antimicrobial therapy. Plan Vancomycin * Maintenance dose: 750 mg IV every 12 hours is associated with a SUPRAtherapeutic AUC of 641 mg/L.hr and nephrotoxicity of 19% * Reduce dose to 1000 mg IV q18 hours (associated with AUC of 576 mg/L.hr and nephrotoxicity of 12%) * Random level 916/22 AM Pharmacy will continue to follow and will adjust dose/frequency as necessary. Thank you. Pharmacy has transitioned to AUC monitoring for vancomycin. AUC/VIANCA is the preferred PK/PD target and is associated with decreased risk of nephrotoxicity compared to traditional trough targets.
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
[2022-01-16] MEDS ORDERED: POTASSIUM CHLORIDE CRTAB 20 MEQ TABCR PO STA (07:52)
[2022-01-16] MEDS: THIAMINE HCL 100 MG TAB PO SCH (08:50)
[2022-01-16] MEDS: HEPARIN SOD 5,000 UNIT/0.5 ML VIAL SQ SCH ×3 (08:50→20:54)
[2022-01-16] MEDS: TOPIRAMATE 50 MG TAB PO SCH (08:50)
[2022-01-16] MEDS: MIDODRINE HCL 2.5 MG TAB PO SCH ×3 (08:51→18:26)
[2022-01-16] MEDS: FEXOFENADINE HCL 180 MG TAB PO SCH (08:51)
[2022-01-16] MEDS: GABAPENTIN 400 MG CAP PO SCH ×3 (08:51→20:47)
[2022-01-16] MEDS: PANTOprazole 40 MG TAB PO SCH ×2 (08:51→20:47)
[2022-01-16] MEDS: FOLIC ACID 1 MG TAB PO SCH (08:51)
[2022-01-16] MEDS: LORazepam 0.5 MG TAB PO PRN ×2 (09:02→20:47)
[2022-01-16] MEDS: oxyCODONE HCL IR 5 MG TAB (IMMEDIATE RELEASE) PO PRN ×2 (09:02→20:48)
--- NOTE | 2022-01-16 09:32 | Gastroenterology Progress Note ---
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 Resolution of diarrhea, persistent pain/nausea, imaging with CBD stone. Planned for ERCP/EDGE at [facility] GI asked to re-evaluate for fevers, blood cultures growing staph. She has had persistent RUQ pain with radiation to her back with nausea, small food aversion Recommend repeat CT imaging w/ contrast Continue IV ABX Follow repeat blood cultures If any s/s of cholangitis, consider transfer, as we are unable to perform a EDGE procedure at [facility] Thank you for allowing us to participate in the care of this patient. Please call with any acute changes, questions or concerns. Please see addendum below with additional recommendation from my supervising physician. Admission and Anticipated Discharge Date Admission Date: January 13, 2022 Supervising Physician Co-Signing Physician Notes Attg add: I interviewed and examined pt, reviewed chart and labs. Pt with continued fever despite abx, upper abd discomfort but kenzie PO, mildly increased LFTs. Plan as above. Subjective GI asked to re-evaluate pt given fevers last night Positive blood cultures, prelim staph species On IV vanco, flagyl, cefepime Hemodynamically stable TB 1.5 --> 1.1 AST 70 --> 86 ALT 20 --> 25 ALKP 215 --> 145 Lipase 3 CTAP 2021: Mild diffuse wall thickening of the colon is suspicious for a nonspecific colitis. Partial distention of the colon could appear similarly. No bowel obstruction. Prior cholecystectomy. There is suggestion of tiny stones within the distal common bile duct with mild intrahepatic and extrahepatic biliary ductal dilation. Correlation with serum bilirubin recommended. Trace pleural effusions with mesenteric and body wall edema and trace abdominal ascites.Air within the urinary bladder lumen may be secondary to instrumentation versus gas forming organism. Additional findings as above. Review of Systems Review of Systems: All systems reviewed & are unremarkable except as noted in HPI & below Physical Exam Constitutional: WD/WN, vitals as above Respiratory: normal respiratory effort, lungs clear to auscultation Gastrointestinal (Abdomen): + pain with palpation RUQ Skin: no rashes, warm and dry Results & Data ([facility]) Vital Signs (Past 12 Hours) Vital Signs Temp Pulse Pulse Resp BP Pulse Ox O2 Del Method 01/16/22 09:03 36.4 C L 105 H 14 104/72 96 Room Air 01/16/22 07:07 101 H 01/16/22 06:10 Room Air 01/15/22 23:00 108 H 01/16/22 01:55 110 H 01/16/22 00:50 106 H 20 92/65 L 100 Room Air 01/15/22 23:30 36.4 C L 104 H 18 116/69 96 Room Air Laboratory Results 01/16/22 01/16/22 01/16/22 Range/Units 05:39 05:39 05:39 WBC (4.8-10.8) K/ul RBC (3.93-5.22) M/uL Hgb (12.0-16.0) g/dl Hct (34.1-44.9) % MCV (80.0-100.0) fL MCH (25.0-34.0) pg MCHC (32.0-36.0) g/dL RDW Std Deviation (36.4-46.3) fL RDW Coeff of Lisa (11.5-14.5) % Plt Count (130-400) K/uL MPV (9.4-12.3) fL Platelet Estimate (Normal) PT 19.3 H (9.0-12.0) Seconds INR 1.9 H (0.9-1.1) Sodium 139 (136-145) mmol/L Potassium 3.4 L (3.5-5.1) mmol/L Chloride 115 H (98-107) mmol/L Carbon Dioxide 19 L (21-32) mmol/L Anion Gap 5 (3-11) BUN 7 (6-23) mg/dl Creatinine 0.83 (0.6-1.2) mg/dl Est Cr Clr Drug Dosing 70.6 ml/min Est GFR ( Amer) 94.0 ml/min Est GFR (Non-Af Amer) 81.1 ml/min BUN/Creatinine Ratio 8.4 L (10-20) Glucose 80 (70-99(Fasting)) mg/dl Calcium 7.1 L (8.5-10.1) mg/dl Magnesium 1.8 (1.7-2.4) mg/dl Total Bilirubin 1.1 H (0.2-1.0) mg/dl Direct Bilirubin 0.6 H (0-0.2) mg/dl AST 86 H (13-39) U/L ALT 25 (7-52) U/L Alkaline Phosphatase 145 H (34-104) U/L Total Protein 4.3 L (6.0-8.3) gm/dl Albumin 2.2 L (3.4-5.0) gm/dl Random Vancomycin 24.2 H (10-20) mcg/ml 01/16/22 Range/Units 05:39 WBC 3.95 L (4.8-10.8) K/ul RBC 2.34 L (3.93-5.22) M/uL Hgb 7.3 L (12.0-16.0) g/dl Hct 22.1 L (34.1-44.9) % MCV 94.4 (80.0-100.0) fL MCH 31.2 (25.0-34.0) pg MCHC 33.0 (32.0-36.0) g/dL RDW Std Deviation 60.1 H (36.4-46.3) fL RDW Coeff of Lisa 17.7 H (11.5-14.5) % Plt Count 96 L (130-400) K/uL MPV 11.6 (9.4-12.3) fL Platelet Estimate Decreased L (Normal) PT (9.0-12.0) Seconds INR (0.9-1.1) Sodium (136-145) mmol/L Potassium (3.5-5.1) mmol/L Chloride (98-107) mmol/L Carbon Dioxide (21-32) mmol/L Anion Gap (3-11) BUN (6-23) mg/dl Creatinine (0.6-1.2) mg/dl Est Cr Clr Drug Dosing ml/min Est GFR ( Amer) ml/min Est GFR (Non-Af Amer) ml/min BUN/Creatinine Ratio (10-20) Glucose (70-99(Fasting)) mg/dl Calcium (8.5-10.1) mg/dl Magnesium (1.7-2.4) mg/dl Total Bilirubin (0.2-1.0) mg/dl Direct Bilirubin (0-0.2) mg/dl AST (13-39) U/L ALT (7-52) U/L Alkaline Phosphatase (34-104) U/L Total Protein (6.0-8.3) gm/dl Albumin (3.4-5.0) gm/dl Random Vancomycin (10-20) mcg/ml
[2022-01-16] MEDS: CEFEPIME 1,000 MG in SYRINGE 0 ML IV SCH ×2 (10:22→20:49)
[2022-01-16] MEDS: VANCOMYCIN HCL 1,000 MG in SODIUM CHLORIDE 0.9% 250 ML IV SCH (10:35)
[2022-01-16] MEDS ORDERED: OPTIRAY 300 100mL IV ONE (19:53)
[2022-01-16] MEDS: traZODone HCL 50 MG TAB PO PRN (20:47)
--- NOTE | 2022-01-16 20:52 | CT Scan Report ---
CT abd pelvis IV con only CLINICAL HISTORY: poss. cholengitis TECHNIQUE: Helical axial images of the abdomen and pelvis were obtained and displayed. Automated dose lowering techniques and/or adjustment according to patient size were utilized for this exam. This e xam was performed with intravenous contrast. CT DOSE: 300.36 mGy.cm COMPARISON: Comparison is made to CT abdomen pelvis 01/12/2022 FINDINGS: Lower chest: There are trace bilateral pleural effusions with underlying atelectasis. Liver: Hepatic steatosis is noted. Gallbladder and biliary tree: Patient is status post cholecystectomy. The common bile duct is enlarge d measuring 21 mm. This represents a significant enlargement from the prior exam remeasured 14 mm in diameter. The [place] are not definitely thickened. No obstructive stone is seen. Pancreas: Unremarkable, no focal lesions. Spleen: Unremarkable. Adrenals: Unremarkable. Kidneys and ureters: Unremarkable. Bladder: Limited evaluation due to underdistention. Reproductive organs: Patient is status post hysterectomy. Bowel: Liquid contents are seen in the colon. Minimal wall thickening and increased enhancement is se en in the colonic and rectal monroe. There is a hiatal hernia and postsurgical changes of gastric surg christopher. Lymph nodes Retroperitoneal: Unremarkable. Pelvic: Unremarkable. Mesenteric: Subcentimeter lymph nodes are noted. Peritoneum: Normal. Vessels: Unremarkable. Abdominal wall: Body wall edema is seen. Bones: Degenerative changes in the visualized spine. Grade 1 anterolisthesis of L4-L5 is unchanged. C ompression deformity of L1 and T11 are again seen. Total hip arthroplasty on the right is seen. Old h ealed pelvic ring fractures. IMPRESSION: 1. Colonic enhancement and liquid distal colonic contents compatible with diarrhea and possible mild colitis. 2. The common bile duct is dilated, somewhat more so than in the prior exam. Overall appearance is e quivocal for cholangitis as there is no definite wall thickening. 3. Trace bilateral pleural effusions with underlying atelectasis. 4. Body wall edema. 5. Additional findings as above. ACT 112: Negative or not required by law. Electronically signed by: Atilio Magana M.D. 01/16/2022 8:49 PM
[2022-01-17] MEDS: metroNIDAZOLE 500 MG/100 ML BAG IV SCH ×3 (01:46→16:56)
[2022-01-17] MEDS: VANCOMYCIN HCL 1,000 MG in SODIUM CHLORIDE 0.9% 250 ML IV SCH ×2 (02:55→21:30)
[2022-01-17] MEDS: HEPARIN SOD 5,000 UNIT/0.5 ML VIAL SQ SCH (08:13)
[2022-01-17] MEDS: CEFEPIME 1,000 MG in SYRINGE 0 ML IV SCH ×2 (08:13→21:31)
[2022-01-17] MEDS: GABAPENTIN 400 MG CAP PO SCH ×3 (08:13→21:30)
[2022-01-17] MEDS: FOLIC ACID 1 MG TAB PO SCH (08:14)
[2022-01-17] MEDS: LORazepam 0.5 MG TAB PO PRN ×2 (08:14→21:32)
[2022-01-17] MEDS: PANTOprazole 40 MG TAB PO SCH ×2 (08:14→21:30)
[2022-01-17] MEDS: THIAMINE HCL 100 MG TAB PO SCH (08:14)
[2022-01-17] MEDS: FEXOFENADINE HCL 180 MG TAB PO SCH (08:14)
[2022-01-17] MEDS: MIDODRINE HCL 2.5 MG TAB PO SCH ×3 (08:14→16:55)
[2022-01-17] MEDS: oxyCODONE HCL IR 5 MG TAB (IMMEDIATE RELEASE) PO PRN ×2 (08:14→21:31)
[2022-01-17] MEDS: TOPIRAMATE 50 MG TAB PO SCH (08:14)
[2022-01-17 08:17] LABS: Creatinine Clr Calc Pharmacy 73.2 ml/min; Est GFR (African American) 98.2 ml/min; Est GFR (Non-African American) 84.8 ml/min
--- NOTE | 2022-01-17 08:32 | Hospitalist Progress Note ---
Date of Service January 17, 2022 Assessment & Plan (1) Tachycardia: Plan: Colitis --CT ABD:Mild diffuse wall thickening of the colon is suspicious for a nonspecific colitis. Partial distention of the colon could appear similarly. No bowel obstruction. Prior cholecystectomy. There is suggestion of tiny stones within the distal common bile duct with mild intrahepatic and extrahepatic biliary ductal dilation. Correlation with serum bilirubin recommended. Trace pleural effusions with mesenteric and body wall edema and trace abdominal ascites. Air within the urinary bladder lumen may be secondary to instrumentation versus gas forming organism. --Check Stool studies if recurrence of diarrhea --on Cefepime, Flagyl --Tolerating diet Appreciate GI Input No diarrhea since hospitalization -Patient is having formed brown stools Choledocholithiasis CT ABD as above Monitor LFTs Appreciate GI Input Plan for outpatient endoscopy and EDGE given RYGB anatomy and choledocholithiasis Needs follow-up with GI upon discharge Re-discussed with GI, on 01/16, repeat CT abdomen w/ contrast ordered FINDINGS: Lower chest: There are trace bilateral pleural effusions with underlying atelectasis. Liver: Hepatic steatosis is noted. Gallbladder and biliary tree: Patient is status post cholecystectomy. The common bile duct is enlarged measuring 21 mm. This represents a significant enlargement from the prior exam remeasured 14 mm in diameter. The monroe are not definitely thickened. No obstructive stone is seen. Bladder: Limited evaluation due to underdistention. Bowel: Liquid contents are seen in the colon. Minimal wall thickening and increased enhancement is seen in the colonic and rectal monroe. There is a hiatal hernia and postsurgical changes of gastric surgery. Abdominal wall: Body wall edema is seen. Bones: Degenerative changes in the visualized spine. Grade 1 anterolisthesis of L4-L5 is unchanged. Compression deformity of L1 and T11 are again seen. Total hip arthroplasty on the right is seen. Old healed pelvic ring fractures. IMPRESSION: 1. Colonic enhancement and liquid distal colonic contents compatible with diar jamison and possible mild colitis. 2. The common bile duct is dilated, somewhat more so than in the prior exam. Overall appearance is equivocal for cholangitis as there is no definite wall thickening. 3. Trace bilateral pleural effusions with underlying atelectasis. 4. Body wall edema. 5. Additional findings as above. Per GI - Imaging was reviewed. Would recommend if patient remains admitted over the weekend, to arrange transfer to [facility] Friday for tentative EDGE procedure Friday at [facility]. If intervention is needed prior to this, could consider transfer to a tertiary center like [facility]. Hypokalemia Hypomagnesemia Replace as needed Suspected Bacteremia 2/2 Blood Cx: Staph Species Possible contamination Repeat blood cultures so far negative Follow-up cultures Added Vancomycin given fever, hypotension and pending cultures Normal lactate levels Hypotension Likely multifactorial gentle IV fluids / vs. albumin cont. Midodrine Monitor BP closely BP improved UTI H/O UTIs in the past Imaging showed Air within the urinary bladder lumen may be secondary to instrumentation versus gas forming organism. 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 Monitor for withdrawal Continue thiamine, folic acid Continue home gabapentin Ativan as needed PUD S/P surgery Continue PPI Other Chronic Conditions H/O Von Willebrand's disease Seizure disorder Chronic anemia Anxiety/mood disorder Continue home meds H/O Traumatic subdural/rectus sheath hematoma Functional disability/unsafe home environment Patient noncompliant with social workers recommendations PT/OT eval as able DVT Px:Heparin SQ Code Status DNR/DNI Admission and Anticipated Discharge Date Admission Date: January 13, 2022 Subjective Patient is seen in follow-up of colitis, choledocholithiasis , UTI, ?bacteremia Patient had a bowel movement yesterday, small but formed and brown Patient continues to have some upper abdominal quadrants discomfort, right upper quadrant pain radiating to the right shoulder Febrile w/ temp 39.4C at 4 AM on 01/15, last time febrile on 01/15 at 6am 38.8C GI contacted for further recs Per staff, patient tolerates diet, when I talked to her this morning, she cannot recall what she ate and when she ate it. She reports nausea. Review of Systems Review of Systems: All systems reviewed & are unremarkable except as noted in Subjective Physical Exam Physical Exam: General Appearance:Thin, Chronically ill appearing F laying in bed in NAD Head: normocephalic, Atraumatic Eyes: normal inspection, EOMI, +Legally blind Neck: supple Respiratory/Chest: Normal breath sounds, CTA, No accessory muscle use Cardiovascular: S1, S2, No murmur Abdomen/GI:Soft, + tenderness at upper quadrants, Bowel sounds present Extremities/Musculoskeletal:normal inspection, Trace LE edema Neurologic/Psych: Drowsy but able to answer simple questions, speech fluent, moves extremities Skin: normal color, warm, + tattoos Results & Data Results & Data ([facility]) Vital Signs (Past 12 Hours) Vital Signs Temp Pulse Pulse Resp BP Pulse Ox O2 Del Method 01/17/22 07:40 36.6 C 101 H 18 103/71 98 Room Air 01/17/22 07:08 98 H 01/17/22 03:18 36.7 C 101 H 18 95/65 L 98 Room Air 01/16/22 22:40 92 H 01/16/22 23:48 36.5 C 97 H 18 92/60 L 94 Room Air Laboratory Results 01/17/22 01/17/22 01/17/22 Range/Units 13:12 13:12 11:23 WBC 5.22 RBC 2.57 L Hgb 8.0 L Hct 23.9 L MCV 93.0 MCH 31.1 MCHC 33.5 RDW Std Deviation 62.2 H RDW Coeff of Lisa 18.6 H Plt Count 124 L MPV 11.9 Absolute Nucleated RBC Nucleated RBC % (auto) Platelet Estimate Sodium 140 (136-145) mmol/L Potassium 4.2 D (3.5-5.1) mmol/L Chloride 116 H (98-107) mmol/L Carbon Dioxide 19 L (21-32) mmol/L Anion Gap 5 (3-11) BUN 7 (6-23) mg/dl Creatinine 0.83 (0.6-1.2) mg/dl Est Cr Clr Drug Dosing 70.6 ml/min Est GFR ( Amer) 94.0 ml/min Est GFR (Non-Af Amer) 81.1 ml/min BUN/Creatinine Ratio 8.4 L (10-20) Glucose 82 (70-99(Fasting)) mg/dl Calcium 7.6 L (8.5-10.1) mg/dl Phosphorus 1.9 L (2.5-4.9) mg/dl Magnesium 1.9 (1.7-2.4) mg/dl Total Bilirubin 1.1 H (0.2-1.0) mg/dl Direct Bilirubin 0.6 H TNP AST 73 H (13-39) U/L ALT 24 (7-52) U/L Alkaline Phosphatase 121 H (34-104) U/L Total Protein 4.4 L (6.0-8.3) gm/dl Albumin 2.2 L (3.4-5.0) gm/dl 01/17/22 01/17/22 Range/Units 11:23 06:42 WBC Cancelled RBC Cancelled Hgb Cancelled Hct Cancelled MCV Cancelled MCH Cancelled MCHC Cancelled RDW Std Deviation Cancelled RDW Coeff of Lisa Cancelled Plt Count Cancelled MPV Cancelled Absolute Nucleated RBC Cancelled Nucleated RBC % (auto) Cancelled Platelet Estimate Cancelled Sodium (136-145) mmol/L Potassium (3.5-5.1) mmol/L Chloride (98-107) mmol/L Carbon Dioxide (21-32) mmol/L Anion Gap (3-11) BUN (6-23) mg/dl Creatinine 0.80 (0.6-1.2) mg/dl Est Cr Clr Drug Dosing 73.2 ml/min Est GFR ( Amer) 98.2 ml/min Est GFR (Non-Af Amer) 84.8 ml/min BUN/Creatinine Ratio (10-20) Glucose (70-99(Fasting)) mg/dl Calcium (8.5-10.1) mg/dl Phosphorus (2.5-4.9) mg/dl Magnesium (1.7-2.4) mg/dl Total Bilirubin (0.2-1.0) mg/dl Direct Bilirubin AST (13-39) U/L ALT (7-52) U/L Alkaline Phosphatase (34-104) U/L Total Protein (6.0-8.3) gm/dl Albumin (3.4-5.0) gm/dl Medications Administered Current Inpatient Medications Acetaminophen (Acetaminophen 325 Mg Tab) 325 mg PO Q6H PRN PRN Reason: Mild Pain Stop: 02/12/22 02:50 Last Admin: 01/15/22 03:47 Dose: 325 mg Fexofenadine HCl (Fexofenadine Hcl 180 Mg Tab) 180 mg PO DAILY DENIS Stop: 02/12/22 08:59 Last Admin: 01/17/22 08:14 Dose: 180 mg Folic Acid (Folic Acid 1 Mg Tab) 1 mg PO QAM DENIS Stop: 02/12/22 02:50 Last Admin: 01/17/22 08:14 Dose: 1 mg Gabapentin (Gabapentin 400 Mg Cap) 400 mg PO TID DENIS Stop: 02/12/22 08:59 Last Admin: 01/17/22 08:13 Dose: 400 mg Heparin Sodium (Porcine) (Heparin Sod 5,000 Unit/0.5 Ml Vial) 5,000 units SQ Q12 [facility]IS Stop: 02/13/22 20:59 Last Admin: 01/17/22 08:13 Dose: 5,000 units Promethazine HCl 6.25 mg/ (Sodium Chloride) 50.25 mls @ 201 mls/hr IV Q6H PRN PRN Reason: Nausea And Vomiting Stop: 02/12/22 02:50 Last Infusion: 01/16/22 10:37 Dose: Infused Lorazepam 1 mg/ Syringe 1 mls @ 2 mls/min IV UD PRN; Protocol PRN Reason: EtOH Withdrawal AWSS Score 6,7 Stop: 02/12/22 02:50 Last Admin: 01/13/22 17:20 Dose: 2 mls/min Lorazepam 2 mg/ Syringe 2 mls @ 2 mls/min IV UD PRN; Protocol PRN Reason: EtOH Withdrawal AWSS Score 8,9 Stop: 02/12/22 02:50 Cefepime HCl 1,000 mg/ Syringe 11.3 mls @ 5.5 mls/min IV Q12 DENIS; Protocol Stop: 01/18/22 09:14 Last Admin: 01/17/22 08:13 Dose: 5.5 mls/min Metronidazole (Flagyl) 500 mg in 100 mls @ 100 mls/hr IV Q8H [facility] Stop: 01/24/22 08:14 Last Admin: 01/17/22 08:15 Dose: 100 mls/hr Sodium Chloride (Nss 1000ml) 1,000 mls @ 100 mls/hr IV .Q10H [facility] Last Admin: 01/16/22 01:05 Dose: Not Given Vancomycin HCl 1,000 mg/ (Sodium Chloride) 270 mls @ 200 mls/hr IV Q18H [facility] Stop: 01/30/22 09:59 Last Infusion: 01/17/22 04:34 Dose: Infused Lorazepam (Lorazepam 0.5 Mg Tab) 0.5 mg PO TID PRN PRN Reason: Anxiety Stop: 02/12/22 08:45 Last Admin: 01/17/22 08:14 Dose: 0.5 mg Midodrine (Midodrine Hcl 2.5 Mg Tab) 5 mg PO TID@0800,1200,1700 [facility] Stop: 02/14/22 16:59 Last Admin: 01/17/22 08:14 Dose: 5 mg Miscellaneous Information (Vancomycin Consult Active) 1 each N/A UD PRN PRN Reason: Consult Stop: 02/14/22 01:13 Oxycodone HCl (Oxycodone Hcl Ir 5 Mg Tab (Immediate Release)) 5 mg PO Q6 PRN PRN Reason: Pain Stop: 01/27/22 02:50 Last Admin: 01/17/22 08:14 Dose: 5 mg Pantoprazole Sodium (Pantoprazole 40 Mg Tab) 40 mg PO BID DENIS Stop: 02/12/22 08:59 Last Admin: 01/17/22 08:14 Dose: 40 mg Thiamine HCl (Thiamine Hcl 100 Mg Tab) 100 mg PO QAM [facility] Stop: 02/12/22 02:50 Last Admin: 01/17/22 08:14 Dose: 100 mg Topiramate (Topiramate 50 Mg Tab) 50 mg PO DAILY [facility]IS Stop: 02/12/22 08:59 Last Admin: 01/17/22 08:14 Dose: 50 mg Trazodone HCl (Trazodone Hcl 50 Mg Tab) 50 mg PO HS PRN PRN Reason: Sleep Stop: 02/12/22 02:50 Last Admin: 01/16/22 20:47 Dose: 50 mg
--- NOTE | 2022-01-17 09:54 | Communication Note ---
Date of Service: January 17, 2022 Case was discussed with attending and biliary attending. Imaging was reviewed. Would recommend if patient remains admitted over the weekend, to arrange transfer to [facility] Friday for tentative EDGE procedure Friday at [facility]. If intervention is needed prior to this, could consider transfer to a tertiary center [place] [facility]
[2022-01-17 12:22] LABS: Alanine Aminotransferase 24 U/L (7-52); Albumin Level 2.2 gm/dl (3.4-5.0); Alkaline Phosphatase 121 U/L (34-104); Anion Gap 5 (3-11); Aspartate Aminotransferase 73 U/L (13-39); BUN Creatinine Ratio 8.4 (10-20); Bilirubin,Total 1.1 mg/dl (0.2-1.0); Blood Urea Nitrogen 7 mg/dl (6-23); Calcium 7.6 mg/dl (8.5-10.1); Carbon Dioxide 19 mmol/L (21-32); Chloride 116 mmol/L (98-107); Creatinine Clr Calc Pharmacy 70.6 ml/min; Est GFR (Non-African American) 81.1 ml/min; Glucose 82 mg/dl (70-99(Fasting)); Magnesium 1.9 mg/dl (1.7-2.4); Phosphorus 1.9 mg/dl (2.5-4.9); Potassium 4.2 mmol/L (3.5-5.1); Sodium 140 mmol/L (136-145); Total Protein 4.4 gm/dl (6.0-8.3)
[2022-01-17 13:32] LABS: Hematocrit (blood only) 23.9 % (34.1-44.9); Mean Corpuscular Hemoglobin 31.1 pg (25.0-34.0); Mean Corpuscular Hgb Conc 33.5 g/dL (32.0-36.0); Mean Platelet Volume 11.9 fL (9.4-12.3); Platelet Count 124 K/uL (130-400); RDW Coefficient of Variation 18.6 % (11.5-14.5); RDW Standard Deviation 62.2 fL (36.4-46.3); Red Blood Count 2.57 M/uL (3.93-5.22); White Blood Count 5.22 K/ul (4.8-10.8)
[2022-01-17] MEDS: traZODone HCL 50 MG TAB PO PRN (21:32)
[2022-01-18] MEDS: metroNIDAZOLE 500 MG/100 ML BAG IV SCH ×3 (02:33→16:49)
--- NOTE | 2022-01-18 08:09 | Hospitalist Progress Note ---
Date of Service January 18, 2022 Assessment & Plan (1) Tachycardia: Plan: Colitis --CT ABD:Mild diffuse wall thickening of the colon is suspicious for a nonspecific colitis. Partial distention of the colon could appear similarly. No bowel obstruction. Prior cholecystectomy. There is suggestion of tiny stones within the distal common bile duct with mild intrahepatic and extrahepatic biliary ductal dilation. Correlation with serum bilirubin recommended. Trace pleural effusions with mesenteric and body wall edema and trace abdominal ascites. Air within the urinary bladder lumen may be secondary to instrumentation versus gas forming organism. --Check Stool studies if recurrence of diarrhea --on Cefepime, Flagyl --Tolerating diet Appreciate GI Input No diarrhea since hospitalization -Patient is having formed brown stools Choledocholithiasis CT ABD as above Monitor LFTs Appreciate GI Input Plan for outpatient endoscopy and EDGE given RYGB anatomy and choledocholithiasis Needs follow-up with GI upon discharge Re-discussed with GI, on 01/16, repeat CT abdomen w/ contrast ordered FINDINGS: Lower chest: There are trace bilateral pleural effusions with underlying atelectasis. Liver: Hepatic steatosis is noted. Gallbladder and biliary tree: Patient is status post cholecystectomy. The common bile duct is enlarged measuring 21 mm. This represents a significant enlargement from the prior exam remeasured 14 mm in diameter. The monroe are not definitely thickened. No obstructive stone is seen. Bladder: Limited evaluation due to underdistention. Bowel: Liquid contents are seen in the colon. Minimal wall thickening and increased enhancement is seen in the colonic and rectal monroe. There is a hiatal hernia and postsurgical changes of gastric surgery. Abdominal wall: Body wall edema is seen. Bones: Degenerative changes in the visualized spine. Grade 1 anterolisthesis of L4-L5 is unchanged. Compression deformity of L1 and T11 are again seen. Total hip arthroplasty on the right is seen. Old healed pelvic ring fractures. IMPRESSION: 1. Colonic enhancement and liquid distal colonic contents compatible with diar jamison and possible mild colitis. 2. The common bile duct is dilated, somewhat more so than in the prior exam. Overall appearance is equivocal for cholangitis as there is no definite wall thickening. 3. Trace bilateral pleural effusions with underlying atelectasis. 4. Body wall edema. 5. Additional findings as above. Per GI - Imaging was reviewed. Would recommend if patient remains admitted over the weekend, to arrange transfer to [facility] Friday for tentative EDGE procedure Friday at [facility]. If intervention is needed prior to this, could consider transfer to a tertiary center [place] [facility] Hypokalemia Hypomagnesemia Replace as needed Suspected Bacteremia 2/2 Blood Cx: Staph Species Possible contamination Repeat blood cultures so far negative Follow-up cultures Added Vancomycin given fever, hypotension and pending cultures Normal lactate levels Hypotension Likely multifactorial gentle IV fluids / vs. albumin cont. Midodrine Monitor BP closely BP improved UTI H/O UTIs in the past Imaging showed Air within the urinary bladder lumen may be secondary to instrumentation versus gas forming organism. 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 Monitor for withdrawal Continue thiamine, folic acid Continue home gabapentin Ativan as needed PUD S/P surgery Continue PPI Other Chronic Conditions H/O Von Willebrand's disease Seizure disorder Chronic anemia Anxiety/mood disorder Continue home meds H/O Traumatic subdural/rectus sheath hematoma Functional disability/unsafe home environment Patient noncompliant with social workers recommendations PT/OT eval as able DVT Px:Heparin SQ Code Status DNR/DNI Admission and Anticipated Discharge Date Admission Date: January 13, 2022 Subjective Patient is seen in follow-up of colitis, choledocholithiasis , UTI, ?bacteremia Patient is having BMs, no loose stools Patient continues to have some upper abdominal quadrants discomfort, right upper quadrant pain radiating to the right shoulder Last time febrile on 01/15 at 6am 38.8C Denies chest pain shortness of breath nausea vomiting, tolerates diet. Review of Systems Review of Systems: All systems reviewed & are unremarkable except as noted in Subjective Physical Exam Physical Exam: General Appearance:Thin, Chronically ill appearing F laying in bed in NAD Head: normocephalic, Atraumatic Eyes: normal inspection, EOMI, +Legally blind Neck: supple Respiratory/Chest: Normal breath sounds, CTA, No accessory muscle use Cardiovascular: S1, S2, No murmur Abdomen/GI:Soft, + tenderness at upper quadrants, Bowel sounds present Extremities/Musculoskeletal:normal inspection, Trace LE edema Neurologic/Psych: Alert oriented, able to answer simple questions appropriately, speech fluent, moves extremities Skin: normal color, warm, + tattoos Results & Data Results & Data ([facility]) Vital Signs (Past 12 Hours) Vital Signs Temp Pulse Pulse Resp BP Pulse Ox O2 Del Method 09/16/22 07:44 75 01/17/22 22:15 90 01/18/22 03:15 36.3 C L 95 H 20 98/62 L 99 Room Air 01/17/22 23:09 36.8 C 99 H 16 91/60 L 98 Room Air Laboratory Results 01/18/22 01/18/22 01/18/22 Range/Units 09:25 09:25 09:25 WBC 3.96 L (4.8-10.8) K/ul RBC 2.64 L (3.93-5.22) M/uL Hgb 8.1 L (12.0-16.0) g/dl Hct 24.0 L (34.1-44.9) % MCV 90.9 (80.0-100.0) fL MCH 30.7 (25.0-34.0) pg MCHC 33.8 (32.0-36.0) g/dL RDW Std Deviation 62.4 H (36.4-46.3) fL RDW Coeff of Lisa 19.3 H (11.5-14.5) % Plt Count 120 L (130-400) K/uL MPV 12.0 (9.4-12.3) fL PT 17.8 H (9.0-12.0) Seconds INR 1.7 H (0.9-1.1) Sodium (136-145) mmol/L Potassium (3.5-5.1) mmol/L Chloride (98-107) mmol/L Carbon Dioxide (21-32) mmol/L Anion Gap (3-11) BUN (6-23) mg/dl Creatinine (0.6-1.2) mg/dl Est Cr Clr Drug Dosing ml/min Est GFR ( Amer) ml/min Est GFR (Non-Af Amer) ml/min BUN/Creatinine Ratio (10-20) Glucose (70-99(Fasting)) mg/dl Calcium (8.5-10.1) mg/dl Phosphorus (2.5-4.9) mg/dl Magnesium (1.7-2.4) mg/dl Total Bilirubin (0.2-1.0) mg/dl Direct Bilirubin (0-0.2) mg/dl AST (13-39) U/L ALT (7-52) U/L Alkaline Phosphatase (34-104) U/L Total Protein (6.0-8.3) gm/dl Albumin (3.4-5.0) gm/dl Random Vancomycin 30.3 H* (10-20) mcg/ml 01/18/22 Range/Units 09:25 WBC (4.8-10.8) K/ul RBC (3.93-5.22) M/uL Hgb (12.0-16.0) g/dl Hct (34.1-44.9) % MCV (80.0-100.0) fL MCH (25.0-34.0) pg MCHC (32.0-36.0) g/dL RDW Std Deviation (36.4-46.3) fL RDW Coeff of Lisa (11.5-14.5) % Plt Count (130-400) K/uL MPV (9.4-12.3) fL PT (9.0-12.0) Seconds INR (0.9-1.1) Sodium 141 (136-145) mmol/L Potassium 3.5 (3.5-5.1) mmol/L Chloride 117 H (98-107) mmol/L Carbon Dioxide 19 L (21-32) mmol/L Anion Gap 5 (3-11) BUN 6 (6-23) mg/dl Creatinine 0.77 (0.6-1.2) mg/dl Est Cr Clr Drug Dosing 76.9 ml/min Est GFR ( Amer) 102.9 ml/min Est GFR (Non-Af Amer) 88.8 ml/min BUN/Creatinine Ratio 7.8 L (10-20) Glucose 83 (70-99(Fasting)) mg/dl Calcium 7.6 L (8.5-10.1) mg/dl Phosphorus 2.0 L (2.5-4.9) mg/dl Magnesium 1.9 (1.7-2.4) mg/dl Total Bilirubin 1.0 (0.2-1.0) mg/dl Direct Bilirubin 0.6 H (0-0.2) mg/dl AST 54 H (13-39) U/L ALT 21 (7-52) U/L Alkaline Phosphatase 131 H (34-104) U/L Total Protein 4.3 L (6.0-8.3) gm/dl Albumin 2.0 L (3.4-5.0) gm/dl Random Vancomycin (10-20) mcg/ml Medications Administered Current Inpatient Medications Acetaminophen (Acetaminophen 325 Mg Tab) 325 mg PO Q6H PRN PRN Reason: Mild Pain Stop: 02/12/22 02:50 Last Admin: 01/15/22 03:47 Dose: 325 mg Fexofenadine HCl (Fexofenadine Hcl 180 Mg Tab) 180 mg PO DAILY [facility] Stop: 02/12/22 08:59 Last Admin: 01/17/22 08:14 Dose: 180 mg Folic Acid (Folic Acid 1 Mg Tab) 1 mg PO QAM [facility] Stop: 02/12/22 02:50 Last Admin: 01/17/22 08:14 Dose: 1 mg Gabapentin (Gabapentin 400 Mg Cap) 400 mg PO TID DENIS Stop: 02/12/22 08:59 Last Admin: 01/17/22 21:30 Dose: 400 mg Heparin Sodium (Porcine) (Heparin Sod 5,000 Unit/0.5 Ml Vial) 5,000 units SQ Q12 [facility] Stop: 02/13/22 20:59 Last Admin: 01/17/22 08:13 Dose: 5,000 units Promethazine HCl 6.25 mg/ (Sodium Chloride) 50.25 mls @ 201 mls/hr IV Q6H PRN PRN Reason: Nausea And Vomiting Stop: 02/12/22 02:50 Last Infusion: 01/16/22 10:37 Dose: Infused Lorazepam 1 mg/ Syringe 1 mls @ 2 mls/min IV UD PRN; Protocol PRN Reason: EtOH Withdrawal AWSS Score 6,7 Stop: 02/12/22 02:50 Last Admin: 01/13/22 17:20 Dose: 2 mls/min Lorazepam 2 mg/ Syringe 2 mls @ 2 mls/min IV UD PRN; Protocol PRN Reason: EtOH Withdrawal AWSS Score 8,9 Stop: 02/12/22 02:50 Cefepime HCl 1,000 mg/ Syringe 11.3 mls @ 5.5 mls/min IV Q12 DENIS; Protocol Stop: 01/20/22 23:59 Last Admin: 01/17/22 21:31 Dose: 5.5 mls/min Metronidazole (Flagyl) 500 mg in 100 mls @ 100 mls/hr IV Q8H [facility] Stop: 01/24/22 08:14 Last Infusion: 01/18/22 04:29 Dose: Infused Sodium Chloride (Nss 1000ml) 1,000 mls @ 100 mls/hr IV .Q10H [facility] Last Admin: 01/16/22 01:05 Dose: Not Given Vancomycin HCl 1,000 mg/ (Sodium Chloride) 270 mls @ 200 mls/hr IV Q18H [facility] Stop: 01/30/22 09:59 Last Infusion: 01/18/22 02:34 Dose: Infused Lorazepam (Lorazepam 0.5 Mg Tab) 0.5 mg PO TID PRN PRN Reason: Anxiety Stop: 02/12/22 08:45 Last Admin: 01/17/22 21:32 Dose: 0.5 mg Midodrine (Midodrine Hcl 2.5 Mg Tab) 5 mg PO TID@0800,1200,1700 [facility] Stop: 02/14/22 16:59 Last Admin: 01/17/22 16:55 Dose: 5 mg Miscellaneous Information (Vancomycin Consult Active) 1 each N/A UD PRN PRN Reason: Consult Stop: 02/14/22 01:13 Oxycodone HCl (Oxycodone Hcl Ir 5 Mg Tab (Immediate Release)) 5 mg PO Q6 PRN PRN Reason: Pain Stop: 01/27/22 02:50 Last Admin: 01/17/22 21:31 Dose: 5 mg Pantoprazole Sodium (Pantoprazole 40 Mg Tab) 40 mg PO BID [facility] Stop: 02/12/22 08:59 Last Admin: 01/17/22 21:30 Dose: 40 mg Thiamine HCl (Thiamine Hcl 100 Mg Tab) 100 mg PO QAM [facility]IS Stop: 02/12/22 02:50 Last Admin: 01/17/22 08:14 Dose: 100 mg Topiramate (Topiramate 50 Mg Tab) 50 mg PO DAILY DENIS Stop: 02/12/22 08:59 Last Admin: 01/17/22 08:14 Dose: 50 mg Trazodone HCl (Trazodone Hcl 50 Mg Tab) 50 mg PO HS PRN PRN Reason: Sleep Stop: 02/12/22 02:50 Last Admin: 01/17/22 21:32 Dose: 50 mg
[2022-01-18] MEDS: oxyCODONE HCL IR 5 MG TAB (IMMEDIATE RELEASE) PO PRN (09:34)
[2022-01-18] MEDS: LORazepam 0.5 MG TAB PO PRN (09:35)
[2022-01-18] MEDS: CEFEPIME 1,000 MG in SYRINGE 0 ML IV SCH ×2 (09:36→21:58)
[2022-01-18] MEDS: MIDODRINE HCL 2.5 MG TAB PO SCH ×3 (09:36→16:49)
[2022-01-18] MEDS: FOLIC ACID 1 MG TAB PO SCH (09:37)
[2022-01-18] MEDS: GABAPENTIN 400 MG CAP PO SCH ×3 (09:37→21:57)
[2022-01-18] MEDS: TOPIRAMATE 50 MG TAB PO SCH (09:38)
[2022-01-18] MEDS: FEXOFENADINE HCL 180 MG TAB PO SCH (09:38)
[2022-01-18] MEDS: THIAMINE HCL 100 MG TAB PO SCH (09:38)
[2022-01-18] MEDS: PANTOprazole 40 MG TAB PO SCH ×2 (09:38→21:57)
[2022-01-18 09:48] LABS: Hemoglobin 8.1 g/dl (12.0-16.0); Platelet Count 120 K/uL (130-400); White Blood Count 3.96 K/ul (4.8-10.8)
[2022-01-18 09:59] LABS: INR 1.7 (0.9-1.1); Prothrombin Time 17.8 Seconds (9.0-12.0)
[2022-01-18 10:20] LABS: Mean Corpuscular Hemoglobin 30.7 pg (25.0-34.0); Mean Corpuscular Hgb Conc 33.8 g/dL (32.0-36.0); Mean Corpuscular Volume 90.9 fL (80.0-100.0); RDW Coefficient of Variation 19.3 % (11.5-14.5); RDW Standard Deviation 62.4 fL (36.4-46.3); Red Blood Count 2.64 M/uL (3.93-5.22)
[2022-01-18 10:24] LABS: BUN Creatinine Ratio 7.8 (10-20); Bilirubin Direct 0.6 mg/dl (0-0.2); Calcium 7.6 mg/dl (8.5-10.1); Creatinine Clr Calc Pharmacy 76.9 ml/min; Est GFR (African American) 102.9 ml/min; Est GFR (Non-African American) 88.8 ml/min; Magnesium 1.9 mg/dl (1.7-2.4); Potassium 3.5 mmol/L (3.5-5.1); Total Protein 4.3 gm/dl (6.0-8.3)
--- NOTE | 2022-01-18 13:22 | Pharmacy Report ---
Pharmacy PK ABX Note - Date of Service January 18, 2022 - Assessment and Plan Assessment 51 year old F receiving IV vancomycin, cefepime and flagyl empirically in setting of colitis, UTI, and now (+) blood cultures. Spiking fevers overnight and BPs soft on cefepime monotherapy. Urine culture (+) E.coli (R to Unasyn and ampicillin), blood culture now (+) Coag Staph spp in 2/4 (Sensitive to oxacillin). Repeat blood cultures currently NGTD. Kidney function stable currently. Day #5 of antimicrobial therapy. Plan Vancomycin * Maintenance dose: 1000 mg IV every 18 hours is associated with a SUPRAtherapeutic AUC of 652 mg/L.hr and nephrotoxicity of 18% * Reduce dose to 1000 mg IV q24 hours (associated with AUC of 507 mg/L.hr and nephrotoxicity of 10%) * Random level 01/20/ AM Pharmacy will continue to follow and will adjust dose/frequency as necessary. Thank you. Pharmacy has transitioned to AUC monitoring for vancomycin. AUC/VIANCA is the preferred PK/PD target and is associated with decreased risk of nephrotoxicity compared to traditional trough targets.
[2022-01-18] MEDS ORDERED: VANCOMYCIN HCL 1,000 MG in SODIUM CHLORIDE 0.9% 250 ML IV SCH (22:00)
[2022-01-19] MEDS: metroNIDAZOLE 500 MG/100 ML BAG IV SCH ×4 (00:22→23:49)
[2022-01-19 06:58] LABS: BUN Creatinine Ratio 8.1 (10-20); Calcium 7.6 mg/dl (8.5-10.1); Est GFR (Non-African American) 93.1 ml/min; Potassium 3.1 mmol/L (3.5-5.1)
[2022-01-19 07:03] LABS: Albumin Globulin Ratio 0.8 (0.9-2); Albumin Level 1.8 gm/dl (3.4-5.0); Bilirubin,Total 0.9 mg/dl (0.2-1.0); Globulin 2.2 gm/dl (2.5-4.0); Magnesium 1.9 mg/dl (1.7-2.4)
[2022-01-19] MEDS: MIDODRINE HCL 2.5 MG TAB PO SCH ×3 (07:20→17:11)
[2022-01-19] MEDS ORDERED: POTASSIUM CHLORIDE CRTAB 20 MEQ TABCR PO STA (08:13)
[2022-01-19] MEDS ORDERED: POTASSIUM CHLORIDE CRTAB 20 MEQ TABCR PO SCH (08:15)
--- NOTE | 2022-01-19 08:15 | Hospitalist Progress Note ---
Date of Service January 19, 2022 Assessment & Plan (1) Tachycardia: Plan: Colitis --CT ABD:Mild diffuse wall thickening of the colon is suspicious for a nonspecific colitis. Partial distention of the colon could appear similarly. No bowel obstruction. Prior cholecystectomy. There is suggestion of tiny stones within the distal common bile duct with mild intrahepatic and extrahepatic biliary ductal dilation. Correlation with serum bilirubin recommended. Trace pleural effusions with mesenteric and body wall edema and trace abdominal ascites. Air within the urinary bladder lumen may be secondary to instrumentation versus gas forming organism. --Check Stool studies if recurrence of diarrhea --on Cefepime, Flagyl --Tolerating diet Appreciate GI Input No diarrhea since hospitalization -Patient is having formed brown stools Choledocholithiasis CT ABD as above Monitor LFTs Appreciate GI Input Plan for outpatient endoscopy and EDGE given RYGB anatomy and choledocholithiasis Needs follow-up with GI upon discharge Re-discussed with GI, on 01/16, repeat CT abdomen w/ contrast ordered FINDINGS: Lower chest: There are trace bilateral pleural effusions with underlying atelectasis. Liver: Hepatic steatosis is noted. Gallbladder and biliary tree: Patient is status post cholecystectomy. The common bile duct is enlarged measuring 21 mm. This represents a significant enlargement from the prior exam remeasured 14 mm in diameter. The monroe are not definitely thickened. No obstructive stone is seen. Bladder: Limited evaluation due to underdistention. Bowel: Liquid contents are seen in the colon. Minimal wall thickening and increased enhancement is seen in the colonic and rectal monroe. There is a hiatal hernia and postsurgical changes of gastric surgery. Abdominal wall: Body wall edema is seen. Bones: Degenerative changes in the visualized spine. Grade 1 anterolisthesis of L4-L5 is unchanged. Compression deformity of L1 and T11 are again seen. Total hip arthroplasty on the right is seen. Old healed pelvic ring fractures. IMPRESSION: 1. Colonic enhancement and liquid distal colonic contents compatible with diar jamison and possible mild colitis. 2. The common bile duct is dilated, somewhat more so than in the prior exam. Overall appearance is equivocal for cholangitis as there is no definite wall thickening. 3. Trace bilateral pleural effusions with underlying atelectasis. 4. Body wall edema. 5. Additional findings as above. Per GI - Imaging was reviewed. Would recommend if patient remains admitted over the weekend, to arrange transfer to [facility] Friday for tentative EDGE procedure Friday at [facility]. If intervention is needed prior to this, could consider transfer to a tertiary center like [facility]. As above - plan to transfer to [facility] over the weekend w/ procedure on Friday. Transfer center and hospitalist at [facility] contacted, and pt accepted for transfer. Dr. Brady aware and plans for procedure at [facility] will cont. cefepime + Flagyl for now Cont. midodrine as BP continues to be 90s/60s on average Hypokalemia Hypomagnesemia Replace as needed Suspected Bacteremia 2/ Blood Cx: Staph Species Possible contamination Repeat blood cultures so far negative Follow-up cultures Added Vancomycin given fever, hypotension and pending cultures Normal lactate levels Hypotension Likely multifactorial gentle IV fluids / vs. albumin cont. Midodrine Monitor BP closely BP improved UTI H/O UTIs in the past Imaging showed Air within the urinary bladder lumen may be secondary to instrumentation versus gas forming organism. 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 Monitor for withdrawal Continue thiamine, folic acid Continue home gabapentin Ativan as needed PUD S/P surgery Continue PPI Other Chronic Conditions H/O Von Willebrand's disease Seizure disorder Chronic anemia Anxiety/mood disorder Continue home meds H/O Traumatic subdural/rectus sheath hematoma Functional disability/unsafe home environment Patient noncompliant with social workers recommendations PT/OT eval as able DVT Px:Heparin SQ Code Status DNR/DNI Admission and Anticipated Discharge Date Admission Date: January 13, 2022 Subjective Patient is seen in follow-up of colitis, choledocholithiasis , UTI, ?bacteremia Patient is having BMs, no loose stools Patient continues to have some upper abdominal quadrants discomfort, right upper quadrant pain radiating to the right shoulder Last time febrile on 01/15 at 6am 38.8C Denies chest pain , shortness of breath, + nausea Review of Systems Review of Systems: All systems reviewed & are unremarkable except as noted in Subjective Physical Exam Physical Exam: General Appearance:Thin, Chronically ill appearing F laying in bed in NAD Head: normocephalic, Atraumatic Eyes: normal inspection, EOMI, +Legally blind Neck: supple Respiratory/Chest: Normal breath sounds, CTA, No accessory muscle use Cardiovascular: S1, S2, No murmur Abdomen/GI:Soft, + tenderness at upper quadrants, Bowel sounds present Extremities/Musculoskeletal:normal inspection, Trace LE edema Neurologic/Psych: Alert oriented, able to answer simple questions appropriately, speech fluent, moves extremities Skin: normal color, warm, + tattoos Results & Data Results & Data ([facility]) Vital Signs (Past 12 Hours) Vital Signs Temp Pulse Pulse Resp BP Pulse Ox O2 Del Method 01/19/22 07:54 36.6 C 91 H 18 104/73 97 Room Air 01/19/22 07:47 71 01/19/22 04:19 36.4 C L 77 18 95/65 L 98 Room Air 01/18/22 22:40 84 01/18/22 21:30 Room Air 01/18/22 23:57 36.8 C 96 H 18 95/66 L 98 Room Air Laboratory Results 01/19/22 01/18/22 01/18/22 Range/Units 05:45 09:25 09:25 WBC 3.96 L (4.8-10.8) K/ul RBC 2.64 L (3.93-5.22) M/uL Hgb 8.1 L (12.0-16.0) g/dl Hct 24.0 L (34.1-44.9) % MCV 90.9 (80.0-100.0) fL MCH 30.7 (25.0-34.0) pg MCHC 33.8 (32.0-36.0) g/dL RDW Std Deviation 62.4 H (36.4-46.3) fL RDW Coeff of Lisa 19.3 H (11.5-14.5) % Plt Count 120 L (130-400) K/uL MPV 12.0 (9.4-12.3) fL PT 17.8 H (9.0-12.0) Seconds INR 1.7 H (0.9-1.1) Sodium 141 (136-145) mmol/L Potassium 3.1 L (3.5-5.1) mmol/L Chloride 117 H (98-107) mmol/L Carbon Dioxide 20 L (21-32) mmol/L Anion Gap 4 (3-11) BUN 6 (6-23) mg/dl Creatinine 0.74 (0.6-1.2) mg/dl Est Cr Clr Drug Dosing 80.0 ml/min Est GFR ( Amer) 108.0 ml/min Est GFR (Non-Af Amer) 93.1 ml/min BUN/Creatinine Ratio 8.1 L (10-20) Glucose 88 (70-99(Fasting)) mg/dl Calcium 7.6 L (8.5-10.1) mg/dl Phosphorus 2.0 L (2.5-4.9) mg/dl Magnesium 1.9 (1.7-2.4) mg/dl Total Bilirubin 0.9 (0.2-1.0) mg/dl Direct Bilirubin (0-0.2) mg/dl AST 37 (13-39) U/L ALT 18 (7-52) U/L Alkaline Phosphatase 114 H (34-104) U/L Total Protein 4.0 L (6.0-8.3) gm/dl Albumin 1.8 L (3.4-5.0) gm/dl Globulin 2.2 L (2.5-4.0) gm/dl Albumin/Globulin Ratio 0.8 L (0.9-2) Random Vancomycin (10-20) mcg/ml 01/18/22 01/18/22 Range/Units 09:25 09:25 WBC (4.8-10.8) K/ul RBC (3.93-5.22) M/uL Hgb (12.0-16.0) g/dl Hct (34.1-44.9) % MCV (80.0-100.0) fL MCH (25.0-34.0) pg MCHC (32.0-36.0) g/dL RDW Std Deviation (36.4-46.3) fL RDW Coeff of Lisa (11.5-14.5) % Plt Count (130-400) K/uL MPV (9.4-12.3) fL PT (9.0-12.0) Seconds INR (0.9-1.1) Sodium 141 (136-145) mmol/L Potassium 3.5 (3.5-5.1) mmol/L Chloride 117 H (98-107) mmol/L Carbon Dioxide 19 L (21-32) mmol/L Anion Gap 5 (3-11) BUN 6 (6-23) mg/dl Creatinine 0.77 (0.6-1.2) mg/dl Est Cr Clr Drug Dosing 76.9 ml/min Est GFR ( Amer) 102.9 ml/min Est GFR (Non-Af Amer) 88.8 ml/min BUN/Creatinine Ratio 7.8 L (10-20) Glucose 83 (70-99(Fasting)) mg/dl Calcium 7.6 L (8.5-10.1) mg/dl Phosphorus 2.0 L (2.5-4.9) mg/dl Magnesium 1.9 (1.7-2.4) mg/dl Total Bilirubin 1.0 (0.2-1.0) mg/dl Direct Bilirubin 0.6 H (0-0.2) mg/dl AST 54 H (13-39) U/L ALT 21 (7-52) U/L Alkaline Phosphatase 131 H (34-104) U/L Total Protein 4.3 L (6.0-8.3) gm/dl Albumin 2.0 L (3.4-5.0) gm/dl Globulin (2.5-4.0) gm/dl Albumin/Globulin Ratio (0.9-2) Random Vancomycin 30.3 H* (10-20) mcg/ml Medications Administered Current Inpatient Medications Acetaminophen (Acetaminophen 325 Mg Tab) 325 mg PO Q6H PRN PRN Reason: Mild Pain Stop: 02/12/22 02:50 Last Admin: 01/15/22 03:47 Dose: 325 mg Fexofenadine HCl (Fexofenadine Hcl 180 Mg Tab) 180 mg PO DAILY [facility] Stop: 02/12/22 08:59 Last Admin: 01/18/22 09:38 Dose: 180 mg Folic Acid (Folic Acid 1 Mg Tab) 1 mg PO QAM [facility] Stop: 02/12/22 02:50 Last Admin: 01/18/22 09:37 Dose: 1 mg Gabapentin (Gabapentin 400 Mg Cap) 400 mg PO TID [facility] Stop: 02/12/22 08:59 Last Admin: 01/18/22 21:57 Dose: 400 mg Heparin Sodium (Porcine) (Heparin Sod 5,000 Unit/0.5 Ml Vial) 5,000 units SQ Q12 [facility] Stop: 02/13/22 20:59 Last Admin: 01/17/22 08:13 Dose: 5,000 units Promethazine HCl 6.25 mg/ (Sodium Chloride) 50.25 mls @ 201 mls/hr IV Q6H PRN PRN Reason: Nausea And Vomiting Stop: 02/12/22 02:50 Last Infusion: 01/16/22 10:37 Dose: Infused Lorazepam 1 mg/ Syringe 1 mls @ 2 mls/min IV UD PRN; Protocol PRN Reason: EtOH Withdrawal AWSS Score 6,7 Stop: 02/12/22 02:50 Last Admin: 01/13/22 17:20 Dose: 2 mls/min Lorazepam 2 mg/ Syringe 2 mls @ 2 mls/min IV UD PRN; Protocol PRN Reason: EtOH Withdrawal AWSS Score 8,9 Stop: 02/12/22 02:50 Cefepime HCl 1,000 mg/ Syringe 11.3 mls @ 5.5 mls/min IV Q12 [facility]IS; Protocol Stop: 01/20/22 23:59 Last Admin: 01/18/22 21:58 Dose: 5.5 mls/min Metronidazole (Flagyl) 500 mg in 100 mls @ 100 mls/hr IV Q8H [facility] Stop: 01/24/22 08:14 Last Admin: 01/19/22 07:20 Dose: 100 mls/hr Sodium Chloride (Nss 1000ml) 1,000 mls @ 100 mls/hr IV .Q10H [facility] Last Admin: 01/16/22 01:05 Dose: Not Given Lorazepam (Lorazepam 0.5 Mg Tab) 0.5 mg PO TID PRN PRN Reason: Anxiety Stop: 02/12/22 08:45 Last Admin: 01/18/22 09:35 Dose: 0.5 mg Midodrine (Midodrine Hcl 2.5 Mg Tab) 5 mg PO TID@0800,1200,1700 [facility] Stop: 02/14/22 16:59 Last Admin: 01/19/22 07:20 Dose: 5 mg Oxycodone HCl (Oxycodone Hcl Ir 5 Mg Tab (Immediate Release)) 5 mg PO Q6 PRN PRN Reason: Pain Stop: 01/27/22 02:50 Last Admin: 01/18/22 09:34 Dose: 5 mg Pantoprazole Sodium (Pantoprazole 40 Mg Tab) 40 mg PO BID [facility] Stop: 02/12/22 08:59 Last Admin: 01/18/22 21:57 Dose: 40 mg Potassium Chloride (Potassium Chloride Crtab 20 Meq Tabcr) 40 meq PO NOW STA Stop: 01/19/22 08:14 Thiamine HCl (Thiamine Hcl 100 Mg Tab) 100 mg PO QAM [facility] Stop: 02/12/22 02:50 Last Admin: 01/18/22 09:38 Dose: 100 mg Topiramate (Topiramate 50 Mg Tab) 50 mg PO DAILY [facility] Stop: 02/12/22 08:59 Last Admin: 01/18/22 09:38 Dose: 50 mg Trazodone HCl (Trazodone Hcl 50 Mg Tab) 50 mg PO HS PRN PRN Reason: Sleep Stop: 02/12/22 02:50 Last Admin: 01/17/22 21:32 Dose: 50 mg
[2022-01-19] MEDS: CEFEPIME 1,000 MG in SYRINGE 0 ML IV SCH ×2 (09:24→21:13)
[2022-01-19] MEDS: oxyCODONE HCL IR 5 MG TAB (IMMEDIATE RELEASE) PO PRN ×2 (09:24→21:12)
[2022-01-19] MEDS: LORazepam 0.5 MG TAB PO PRN (09:24)
[2022-01-19] MEDS: GABAPENTIN 400 MG CAP PO SCH ×3 (09:25→21:12)
[2022-01-19] MEDS: THIAMINE HCL 100 MG TAB PO SCH (09:26)
[2022-01-19] MEDS: FOLIC ACID 1 MG TAB PO SCH (09:26)
[2022-01-19] MEDS: FEXOFENADINE HCL 180 MG TAB PO SCH (09:26)
[2022-01-19] MEDS: PANTOprazole 40 MG TAB PO SCH ×2 (09:26→21:12)
[2022-01-19] MEDS: TOPIRAMATE 50 MG TAB PO SCH (09:26)
[2022-01-20] MEDS: PROMETHAZINE HCL 6.25 MG in SODIUM CHLORIDE 0.9% 50 ML IV PRN (05:17)
[2022-01-20 06:43] LABS: Albumin Globulin Ratio 0.8 (0.9-2); Albumin Level 2.1 gm/dl (3.4-5.0); BUN Creatinine Ratio 6.5 (10-20); Calcium 7.8 mg/dl (8.5-10.1); Creatinine Clr Calc Pharmacy 76.9 ml/min; Est GFR (African American) 102.9 ml/min; Est GFR (Non-African American) 88.8 ml/min; Globulin 2.5 gm/dl (2.5-4.0); Potassium 4.1 mmol/L (3.5-5.1); Total Protein 4.6 gm/dl (6.0-8.3)
[2022-01-20] MEDS: metroNIDAZOLE 500 MG/100 ML BAG IV SCH ×2 (07:35→16:08)
[2022-01-20] MEDS: MIDODRINE HCL 2.5 MG TAB PO SCH ×2 (07:35→12:46)
--- NOTE | 2022-01-20 08:02 | Hospitalist Progress Note ---
Date of Service January 20, 2022 Assessment & Plan (1) Tachycardia: Plan: Colitis --CT ABD:Mild diffuse wall thickening of the colon is suspicious for a nonspecific colitis. Partial distention of the colon could appear similarly. No bowel obstruction. Prior cholecystectomy. There is suggestion of tiny stones within the distal common bile duct with mild intrahepatic and extrahepatic biliary ductal dilation. Correlation with serum bilirubin recommended. Trace pleural effusions with mesenteric and body wall edema and trace abdominal ascites. Air within the urinary bladder lumen may be secondary to instrumentation versus gas forming organism. --Check Stool studies if recurrence of diarrhea --on Cefepime, Flagyl --Tolerating diet Appreciate GI Input No diarrhea since hospitalization -Patient is having formed brown stools Choledocholithiasis CT ABD as above Monitor LFTs Appreciate GI Input Plan for outpatient endoscopy and EDGE given RYGB anatomy and choledocholithiasis Needs follow-up with GI upon discharge Re-discussed with GI, on 01/16, repeat CT abdomen w/ contrast ordered FINDINGS: Lower chest: There are trace bilateral pleural effusions with underlying atelectasis. Liver: Hepatic steatosis is noted. Gallbladder and biliary tree: Patient is status post cholecystectomy. The common bile duct is enlarged measuring 21 mm. This represents a significant enlargement from the prior exam remeasured 14 mm in diameter. The monroe are not definitely thickened. No obstructive stone is seen. Bladder: Limited evaluation due to underdistention. Bowel: Liquid contents are seen in the colon. Minimal wall thickening and increased enhancement is seen in the colonic and rectal monroe. There is a hiatal hernia and postsurgical changes of gastric surgery. Abdominal wall: Body wall edema is seen. Bones: Degenerative changes in the visualized spine. Grade 1 anterolisthesis of L4-L5 is unchanged. Compression deformity of L1 and T11 are again seen. Total hip arthroplasty on the right is seen. Old healed pelvic ring fractures. IMPRESSION: 1. Colonic enhancement and liquid distal colonic contents compatible with diar jamison and possible mild colitis. 2. The common bile duct is dilated, somewhat more so than in the prior exam. Overall appearance is equivocal for cholangitis as there is no definite wall thickening. 3. Trace bilateral pleural effusions with underlying atelectasis. 4. Body wall edema. 5. Additional findings as above. Per GI - Imaging was reviewed. Would recommend if patient remains admitted over the weekend, to arrange transfer to [facility] Friday for tentative EDGE procedure Friday at [facility]. If intervention is needed prior to this, could consider transfer to a tertiary center like [facility]. As above - plan to transfer to [facility] over the weekend w/ procedure on Friday. Transfer center and hospitalist at [facility] contacted, and pt accepted for transfer. Dr. Brady aware and plans for procedure at [facility] will cont. cefepime + Flagyl for now Cont. midodrine as BP continues to be 90s/60s on average Hypokalemia Hypomagnesemia Replace as needed Suspected Bacteremia 2/2 Blood Cx: Staph Species not lugdunensis Possible contamination Repeat blood cultures are negative Added Vancomycin given fever, hypotension and pending cultures Normal lactate levels vancomycin now discontinued Hypotension Likely multifactorial gentle IV fluids / vs. albumin cont. Midodrine Monitor BP closely BP improved UTI H/O UTIs in the past Imaging showed Air within the urinary bladder lumen may be secondary to instrumentation versus gas forming organism. 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 Monitor for withdrawal Continue thiamine, folic acid Continue home gabapentin Ativan as needed PUD S/P surgery Continue PPI Other Chronic Conditions H/O Von Willebrand's disease Seizure disorder Chronic anemia Anxiety/mood disorder Continue home meds H/O Traumatic subdural/rectus sheath hematoma Functional disability/unsafe home environment Patient noncompliant with social workers recommendations PT/OT eval as able DVT Px:Heparin SQ Code Status DNR/DNI Admission and Anticipated Discharge Date Admission Date: January 13, 2022 Subjective Patient is seen in follow-up of colitis, choledocholithiasis , UTI, ?bacteremia Patient is having BMs, no loose stools Patient continues to have some upper abdominal quadrants discomfort, right upper quadrant pain radiating to the right shoulder Last time febrile on 01/15 at 6am 38.8C Denies chest pain , shortness of breath, + nausea Review of Systems Review of Systems: All systems reviewed & are unremarkable except as noted in Subjective Physical Exam Physical Exam: General Appearance:Thin, Chronically ill appearing F laying in bed in NAD Head: normocephalic, Atraumatic Eyes: normal inspection, EOMI, +Legally blind Neck: supple Respiratory/Chest: Normal breath sounds, CTA, No accessory muscle use Cardiovascular: S1, S2, No murmur Abdomen/GI:Soft, + tenderness at upper quadrants, Bowel sounds present Extremities/Musculoskeletal:normal inspection, Trace LE edema Neurologic/Psych: Alert oriented, able to answer simple questions appropriately, speech fluent, moves extremities Skin: normal color, warm, + tattoos Results & Data Results & Data ([facility]) Vital Signs (Past 12 Hours) Vital Signs Temp Pulse Pulse Resp BP BP Pulse Ox 01/20/22 07:44 01/20/22 07:14 92 H 01/20/22 03:05 36.5 C 73 20 102/71 92 01/19/22 22:45 121 H 01/19/22 21:45 01/19/22 23:10 36.6 C 110 H 20 88/68 L 99 O2 Del Method 01/20/22 07:44 Room Air 01/20/22 07:14 01/20/22 03:05 Room Air 01/19/22 22:45 01/19/22 21:45 Room Air 01/19/22 23:10 Room Air Laboratory Results 01/20/22 01/19/22 Range/Units 05:19 Unknown Sodium 140 (136-145) mmol/L Potassium 4.1 D (3.5-5.1) mmol/L Chloride 118 H (98-107) mmol/L Carbon Dioxide 18 L (21-32) mmol/L Anion Gap 4 (3-11) BUN 5 L (6-23) mg/dl Creatinine 0.77 (0.6-1.2) mg/dl Est Cr Clr Drug Dosing 76.9 ml/min Est GFR ( Amer) 102.9 ml/min Est GFR (Non-Af Amer) 88.8 ml/min BUN/Creatinine Ratio 6.5 L (10-20) Glucose 114 H (70-99(Fasting)) mg/dl Calcium 7.8 L (8.5-10.1) mg/dl Total Bilirubin 1.0 (0.2-1.0) mg/dl AST 37 (13-39) U/L ALT 19 (7-52) U/L Alkaline Phosphatase 120 H (34-104) U/L Total Protein 4.6 L (6.0-8.3) gm/dl Albumin 2.1 L (3.4-5.0) gm/dl Globulin 2.5 (2.5-4.0) gm/dl Albumin/Globulin Ratio 0.8 L (0.9-2) SARS-CoV-2, RNA, NAAT NEGATIVE (NEGATIVE) Medications Administered Current Inpatient Medications Acetaminophen (Acetaminophen 325 Mg Tab) 325 mg PO Q6H PRN PRN Reason: Mild Pain Stop: 02/12/22 02:50 Last Admin: 01/15/22 03:47 Dose: 325 mg Fexofenadine HCl (Fexofenadine Hcl 180 Mg Tab) 180 mg PO DAILY [facility] Stop: 02/12/22 08:59 Last Admin: 01/19/22 09:26 Dose: 180 mg Folic Acid (Folic Acid 1 Mg Tab) 1 mg PO QAM [facility] Stop: 02/12/22 02:50 Last Admin: 01/19/22 09:26 Dose: 1 mg Gabapentin (Gabapentin 400 Mg Cap) 400 mg PO TID [facility] Stop: 02/12/22 08:59 Last Admin: 01/19/22 21:12 Dose: 400 mg Heparin Sodium (Porcine) (Heparin Sod 5,000 Unit/0.5 Ml Vial) 5,000 units SQ Q12 [facility] Stop: 02/13/22 20:59 Last Admin: 01/17/22 08:13 Dose: 5,000 units Promethazine HCl 6.25 mg/ (Sodium Chloride) 50.25 mls @ 201 mls/hr IV Q6H PRN PRN Reason: Nausea And Vomiting Stop: 02/12/22 02:50 Last Infusion: 01/20/22 05:46 Dose: Infused Lorazepam 1 mg/ Syringe 1 mls @ 2 mls/min IV UD PRN; Protocol PRN Reason: EtOH Withdrawal AWSS Score 6,7 Stop: 02/12/22 02:50 Last Admin: 01/13/22 17:20 Dose: 2 mls/min Lorazepam 2 mg/ Syringe 2 mls @ 2 mls/min IV UD PRN; Protocol PRN Reason: EtOH Withdrawal AWSS Score 8,9 Stop: 02/12/22 02:50 Cefepime HCl 1,000 mg/ Syringe 11.3 mls @ 5.5 mls/min IV Q12 [facility]; Protocol Stop: 01/20/22 23:59 Last Admin: 01/19/22 21:13 Dose: 5.5 mls/min Metronidazole (Flagyl) 500 mg in 100 mls @ 100 mls/hr IV Q8H [facility] Stop: 01/24/22 08:14 Last Admin: 01/20/22 07:35 Dose: 100 mls/hr Sodium Chloride (Nss 1000ml) 1,000 mls @ 100 mls/hr IV .Q10H [facility] Last Admin: 01/16/22 01:05 Dose: Not Given Lorazepam (Lorazepam 0.5 Mg Tab) 0.5 mg PO TID PRN PRN Reason: Anxiety Stop: 02/12/22 08:45 Last Admin: 01/19/22 09:24 Dose: 0.5 mg Midodrine (Midodrine Hcl 2.5 Mg Tab) 5 mg PO TID@0800,1200,1700 [facility] Stop: 02/14/22 16:59 Last Admin: 01/20/22 07:35 Dose: 5 mg Oxycodone HCl (Oxycodone Hcl Ir 5 Mg Tab (Immediate Release)) 5 mg PO Q6 PRN PRN Reason: Pain Stop: 01/27/22 02:50 Last Admin: 01/19/22 21:12 Dose: 5 mg Pantoprazole Sodium (Pantoprazole 40 Mg Tab) 40 mg PO BID [facility] Stop: 02/12/22 08:59 Last Admin: 01/19/22 21:12 Dose: 40 mg Thiamine HCl (Thiamine Hcl 100 Mg Tab) 100 mg PO QAM [facility] Stop: 02/12/22 02:50 Last Admin: 01/19/22 09:26 Dose: 100 mg Topiramate (Topiramate 50 Mg Tab) 50 mg PO DAILY [facility] Stop: 02/12/22 08:59 Last Admin: 01/19/22 09:26 Dose: 50 mg Trazodone HCl (Trazodone Hcl 50 Mg Tab) 50 mg PO HS PRN PRN Reason: Sleep Stop: 02/12/22 02:50 Last Admin: 01/17/22 21:32 Dose: 50 mg
[2022-01-20] MEDS: CEFEPIME 1,000 MG in SYRINGE 0 ML IV SCH (08:36)
[2022-01-20] MEDS: oxyCODONE HCL IR 5 MG TAB (IMMEDIATE RELEASE) PO PRN (08:37)
[2022-01-20] MEDS: LORazepam 0.5 MG TAB PO PRN (08:37)
[2022-01-20] MEDS: GABAPENTIN 400 MG CAP PO SCH ×2 (08:38→12:46)
[2022-01-20] MEDS: THIAMINE HCL 100 MG TAB PO SCH (08:38)
[2022-01-20] MEDS: FOLIC ACID 1 MG TAB PO SCH (08:38)
[2022-01-20] MEDS: TOPIRAMATE 50 MG TAB PO SCH (08:38)
[2022-01-20] MEDS: FEXOFENADINE HCL 180 MG TAB PO SCH (08:38)
[2022-01-20] MEDS: PANTOprazole 40 MG TAB PO SCH (08:38)
[2022-01-20] MEDS ORDERED: MAGNESIUM OXIDE 400 MG TAB PO ONE (14:40)
--- NOTE | 2022-01-21 07:18 | Discharge Summary ---
Date of Service January 20, 2022 Admission HPI Per Admitting Provider History obtained from patient and records. 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 Recent confinement 2 months ago for weakness and complicated UTI. 3 days history of achy central abdominal pain followed by nausea vomiting watery diarrhea symptoms. Patient would not know if there was blood in her stool unless she tasted it. Fever, no chills. No recent antibiotic Rx or no known sick contacts. Last alcoholic drink was yesterday. Patient denies chest pain, SOB. Patient also complaining of headache and dizziness symptoms. Patient consulted ER for evaluation of symptoms. Medical History as above Surgical History : Right hip surgery, shoulder surgery, vascular procedure, cholecystectomy, partial gastrectomy, J-tube placement, hysterectomy, hand surgery Family History : Osteoporosis, von Willebrand's disease, breast cancer, heart disease, alcoholism Personal/Social history : Non-smoker, alcohol abuse as per records, disabled Admission Exam Per Admitting Provider GENERAL: Slightly uncomfortable, underweight, chronically ill, no respiratory distress SKIN: Pallor, warm HEENT: Pale palpebral conjunctivae, no ptosis, dry buccal mucosa NECK : Supple, no tenderness CHEST : Decreased breath sounds ,no chest wall tenderness HEART : Tachycardic , no obvious murmurs ABDOMEN: Minimal distention, central abdominal tenderness EXTREMITIES : No LE swelling, no LE swelling, no other conspicuous deformities noted NEUROLOGIC : Coherent, no facial asymmetry, no other gross focality Principal Diagnosis Choledocholithiasis Colitis UTI Hypotension Alcohol use/withdrawal Discharge Exam General Appearance:Thin, Chronically ill appearing F laying in bed in NAD Head: normocephalic, Atraumatic Eyes: normal inspection, EOMI, +Legally blind Neck: supple Respiratory/Chest: Normal breath sounds, CTA, No accessory muscle use Cardiovascular: S1, S2, No murmur Abdomen/GI:Soft, + tenderness at upper quadrants, Bowel sounds present Extremities/Musculoskeletal:normal inspection, Trace LE edema Neurologic/Psych: Alert oriented, able to answer simple questions appropriately, speech fluent, moves extremities Skin: normal color, warm, + tattoos Discharge Data Allergies Allergy/AdvReac Type Severity Reaction Status Date / Time iron dextran complex Allergy Severe SOB, heart Verified 11/03/21 16:07 racing (see comments) cat dander Allergy Intermediate eye Verified 11/03/21 16:07 watering ceftriaxone Allergy Intermediate Hives Verified 11/03/21 16:07 ciprofloxacin Allergy Intermediate lips Verified 11/03/21 16:07 burning/peeling doxycycline Allergy Intermediate hives, Verified 11/03/21 16:07 vomiting iron Allergy Intermediate Hives Verified 11/13/21 13:21 latex Allergy Intermediate mouth Verified 11/03/21 16:07 hives/burning sensation Penicillins Allergy Intermediate Hives Verified 11/03/21 16:07 Quinolones Allergy Intermediate Hives Verified 11/03/21 16:07 Sulfa (Sulfonamide Allergy Intermediate hives Verified 11/03/21 16:07 Antibiotics) Aminoglycosides Allergy Unknown unknown Verified 11/03/21 16:07 reaction tobramycin AdvReac Severe blindness Verified 11/03/21 16:07 citalopram AdvReac Mild restlessnes Verified 11/03/21 16:07 s Consultations 01/12/22 22:34 ED Decision to Admit Stat 01/13/22 09:06 Consult Gastroenterology Routine 01/20/22 07:58 Burn CD for patient Routine Ordered Studies 01/12/22 22:29 CT Abd and Pelvis [CT abd pelvis IV con only] Stat FINDINGS: Trace pleural effusions with subsegmental bibasilar atelectasis. There is no pneumatosis or pneumoperitoneum. The spleen, moderately atrophic pancreas and adrenal glands are unremarkable. Hepatomegaly with severe hepatic steatosis. No hepatic mass or evidence of cirrhosis. CSF the hepatic and portal veins. Cholecystectomy. There is suggestion of tiny stones within the distal common bile duct. The common bile duct is dilated measuring up to 1.4 cm along with mild intrahepatic biliary ductal dilation. Unremarkable kidneys. No hydronephrosis. Air within the urinary bladder lumen. Aorta and IVC are unremarkable. Borderline enlarged inguinal chain lymph nodes are favored to be reactive. Mild periportal lymphadenopathy is also noted. Postoperative changes of the stomach are redemonstrated. There is partial distention with diffuse wall thickening involving the majority of the colon. Normal appendix. Mild diffuse body wall and mesenteric edema with trace abdominal ascites. Osseous of the anterior abdominal wall. Degenerative changes of the spine, pelvis and left. Subacute to chronic bilateral nondisplaced rib fractures. Chronic pelvic ring fractures. Unchanged thoracolumbar compression deformities. IMPRESSION: 1. Mild diffuse wall thickening of the colon is suspicious for a nonspecific colitis. Partial distention of the colon could appear similarly. 2. No bowel obstruction. 3. Prior cholecystectomy. There is suggestion of tiny stones within the distal common bile duct with mild intrahepatic and extrahepatic biliary ductal dilation. Correlation with serum bilirubin recommended. 4. Trace pleural effusions with mesenteric and body wall edema and trace abdominal ascites. 5. Air within the urinary bladder lumen may be secondary to instrumentation versus gas forming organism. 6. Additional findings as above. 01/13/22 02:53 CT head/brain wo con Urgent FINDINGS: No acute intracranial hemorrhage, midline shift, intracranial mass, hydrocephalus, territorial ischemia or new abnormal extra-axial collection. Involutional changes with ex vacuo ventriculomegaly. White matter hypodensities suggest chronic microvascular ischemic disease. Subtle area of increased attenuation involving the extra-axial space superior to the right frontal lobe on image 27 series 2 is unchanged from the 01/09/2021 brain MRI. The calvarium is intact. Polypoid mucosal thickening of the left maxillary sinus. The mastoid air cells are clear. IMPRESSION: No acute intracranial abnormality. 01/16/22 10:56 CT abd pelvis IV con only Urgent FINDINGS: Lower chest: There are trace bilateral pleural effusions with underlying atelectasis. Liver: Hepatic steatosis is noted. Gallbladder and biliary tree: Patient is status post cholecystectomy. The common bile duct is enlarged measuring 21 mm. This represents a significant enlargement from the prior exam remeasured 14 mm in diameter. The monroe are not definitely thickened. No obstructive stone is seen. Pancreas: Unremarkable, no focal lesions. Spleen: Unremarkable. Adrenals: Unremarkable. Kidneys and ureters: Unremarkable. Bladder: Limited evaluation due to underdistention. Reproductive organs: Patient is status post hysterectomy. Bowel: Liquid contents are seen in the colon. Minimal wall thickening and increased enhancement is seen in the colonic and rectal monroe. There is a hiatal hernia and postsurgical changes of gastric surgery. Lymph nodes Retroperitoneal: Unremarkable. Pelvic: Unremarkable. Mesenteric: Subcentimeter lymph nodes are noted. Peritoneum: Normal. Vessels: Unremarkable. Abdominal wall: Body wall edema is seen. Bones: Degenerative changes in the visualized spine. Grade 1 anterolisthesis of L4-L5 is unchanged. Compression deformity of L1 and T11 are again seen. Total hip arthroplasty on the right is seen. Old healed pelvic ring fractures. IMPRESSION: 1. Colonic enhancement and liquid distal colonic contents compatible with diarrhea and possible mild colitis. 2. The common bile duct is dilated, somewhat more so than in the prior exam. Overall appearance is equivocal for cholangitis as there is no definite wall thickening. 3. Trace bilateral pleural effusions with underlying atelectasis. 4. Body wall edema. 5. Additional findings as above. Hospital Course (1) Tachycardia: Colitis --CT ABD:Mild diffuse wall thickening of the colon is suspicious for a nonspecific colitis. Partial distention of the colon could appear similarly. No bowel obstruction. Prior cholecystectomy. There is suggestion of tiny stones within the distal common bile duct with mild intrahepatic and extrahepatic biliary ductal dilation. Correlation with serum bilirubin recommended. Trace pleural effusions with mesenteric and body wall edema and trace abdominal ascites. Air within the urinary bladder lumen may be secondary to instrumentation versus gas forming organism. --Check Stool studies if recurrence of diarrhea --on Cefepime, Flagyl --Tolerating diet Appreciate GI Input No diarrhea since hospitalization -Patient is having formed brown stools Choledocholithiasis CT ABD as above Monitor LFTs Appreciate GI Input Plan for outpatient endoscopy and EDGE given RYGB anatomy and choledocholithiasis Needs follow-up with GI upon discharge Re-discussed with GI, on 01/16, repeat CT abdomen w/ contrast ordered FINDINGS: Lower chest: There are trace bilateral pleural effusions with underlying atelectasis. Liver: Hepatic steatosis is noted. Gallbladder and biliary tree: Patient is status post cholecystectomy. The common bile duct is enlarged measuring 21 mm. This represents a significant enlargement from the prior exam remeasured 14 mm in diameter. The monroe are not definitely thickened. No obstructive stone is seen. Bladder: Limited evaluation due to underdistention. Bowel: Liquid contents are seen in the colon. Minimal wall thickening and increased enhancement is seen in the colonic and rectal monroe. There is a hiatal hernia and postsurgical changes of gastric surgery. Abdominal wall: Body wall edema is seen. Bones: Degenerative changes in the visualized spine. Grade 1 anterolisthesis of L4-L5 is unchanged. Compression deformity of L1 and T11 are again seen. Total hip arthroplasty on the right is seen. Old healed pelvic ring fractures. IMPRESSION: 1. Colonic enhancement and liquid distal colonic contents compatible with diarrhea and possible mild colitis. 2. The common bile duct is dilated, somewhat more so than in the prior exam. Overall appearance is equivocal for cholangitis as there is no definite wall thickening. 3. Trace bilateral pleural effusions with underlying atelectasis. 4. Body wall edema. 5. Additional findings as above. Per GI - Imaging was reviewed. Would recommend if patient remains admitted over the weekend, to arrange transfer to [facility] Friday for tentative EDGE procedure Friday at [facility]. If intervention is needed prior to this, could consider transfer [place] a [place] [facility] [place] As above - plan to transfer to [facility] over the weekend w/ procedure on Friday. Transfer center and hospitalist at [facility] contacted, and pt accepted for transfer. Dr. Brady aware and plans for procedure at [facility] will cont. cefepime + Flagyl for now Continued midodrine as BP continues to be 90s/60s on average Update: Due to episode of NSVT today, January 20, will stop midodrine Continue to monitor BP Hypokalemia Hypomagnesemia Replace as needed NSVT - 1 episode on 01/20 -Patient asymptomatic -Potassium and mag checked -Potassium 4.1 magnesium 1.9. Oral magnesium provided -Hold midodrine Suspected Bacteremia 2/ Blood Cx: Staph Species not lugdunensis Possible contamination Repeat blood cultures are negative Added Vancomycin given fever, hypotension and pending cultures Normal lactate levels vancomycin now discontinued Hypotension Likely multifactorial gentle IV fluids / vs. albumin pt was started on Midodrine - now stopped Monitor BP closely UTI H/O UTIs in the past Imaging showed Air within the urinary bladder lumen may be secondary to instrumentation versus gas forming organism. Urine Culture: E.coli Pt already received 7 days of Cefepime (treated) Alcohol withdrawal Counseled to quit drinking Monitor for withdrawal Continue thiamine, folic acid Continue home gabapentin Ativan as needed PUD S/P surgery Continue PPI Other Chronic Conditions H/O Von Willebrand's disease Seizure disorder Chronic anemia Anxiety/mood disorder Continue home meds H/O Traumatic subdural/rectus sheath hematoma Functional disability/unsafe home environment Patient noncompliant with social workers recommendations PT/OT eval as able Total Time Total Time Spent Total Time Spent (In Minutes): 40 Discharge Plan Discharge Items Patient Disposition: Transfer Acute Care Hospital Reason For Visit: ABD PAIN, TACHY Discharge Diagnosis: Choledocholithiasis Colitis UTI Hypotension Alcohol use/withdrawal Activity: Per Instructions section Non-emergency contact: Primary Care Provider and Data Center Engineer Call non-emergency contact if: you have any medication questions and your symptoms worsen Follow-up/Referrals: Jaspal Bae MD [Primary Care Provider] - Diet: Low Fat Addtl Attending Provider Instructions: Patient with choledocholithiasis, in need of ERCP/EDGE, not available in this hospital. Plan to transfer patient to [facility] where the procedure can be done (Dr. Brady). Continue IV cefepime and Flagyl in the meantime. Pending Studies at Discharge: No Stand-Alone Forms: My [facility] Skilled Items Patient informed of condition?: Yes DNR: Yes Discharge Level of Care: Other Communicable Disease: No Discharge Prognosis: Stable Lines: US Guided Peripheral IV Urinary Catheter: No Medications and DC Order Prescriptions: Continued gabapentin 400 mg capsule 400 mg PO TID lorazepam 1 mg tablet 0.5 - 1 mg PO TID PRN (Reason: Anxiety) pantoprazole [Protonix] 40 mg tablet,delayed release (DR/EC) 40 mg PO BID fexofenadine [Maame Allergy] 180 mg Tablet 180 mg PO DAILY acetaminophen 325 mg Tablet 650 mg PO Q6 PRN (Reason: Fever Or Pain) albuterol sulfate 90 mcg/actuation HFA aerosol inhaler 2 puff INHALATION QID PRN (Reason: Shortness Of Breath Or Wheezing) torsemide 20 mg tablet 20 mg PO DAILY PRN (Reason: swelling) triamcinolone acetonide 0.1 % cream 1 applic TOPICAL BID mupirocin 2 % ointment 1 applic TOPICAL BID cyclobenzaprine 10 mg Tablet 10 mg PO TID PRN (Reason: muscle spasm) Qty: 90 0RF ondansetron 4 mg tablet,disintegrating 4 mg PO Q8H PRN (Reason: nausea and vomiting) Qty: 60 0RF potassium chloride 20 mEq tablet,ER particles/crystals 20 meq PO DAILY PRN (Reason: with toresemide) Qty: 0 0RF promethazine 25 mg tablet 25 mg PO Q8H PRN (Reason: Nausea) topiramate 25 mg tablet 50 mg PO DAILY oxycodone 5 mg tablet 5 mg PO Q6 PRN (Reason: Pain) trazodone 50 mg tablet 50 mg PO HS PRN (Reason: Sleep) diclofenac sodium [Voltaren Arthritis Pain] 1 % gel 2 g EXT TID PRN (Reason: Pain) Rx Instructions: Rt shoulder application upto three times a day for pain. Discontinued ibuprofen 200 mg Tablet 200 mg PO BID PRN (Reason: Pain) Discharge Orders: Discharge Order (Routine); Ordered 01/20/22 Ordered By: Keny Donohue Admission Data Admit Date/Time: 01/13/22 11:46 Attending Provider: Keny Donohue Admit Provider: Jesus Katz Primary Care Provider: Jaspal Bae Other Providers: Joby Gorman ; Luis Armando Erickson ; Dev Hawkins ; Sheela Ruiz ; Loren Pickett ; Sobeida Martinez ; Rosario Mckinney ; Bernabe Daley ; Sheela Ogden ; Meeta Lyon ; Derrick Valiente ; Matt Holbrook ; Kathryn Amezcua ; Bisi Garcia ; Jovon Banks ; Alf Coughlin ; Cindy Gamble ; Kacy Mai ; Mary Plummer ; Manisha Diggs ; Blanco Brady ; Abdulaziz Duarte ; Aki Amaya ; Toby Hoffmann ; Amada Shields ; Bria Pedraza Jr ; Jesus Katz Other Interventions: Discharge Summary Assessment (RN) Last Done: 01/20/22 19:21
== END 2022-01-20 19:55 | disposition short-term general hospital (02) | DRG 445 ==
LOC: ED 16:35 → 2E 16:35 → SUATTDRO 01-13 11:46 → 2N 01-16 00:36
DX: K76.0 Fatty (change of) liver, not elsewhere classified; Z66 Do not resuscitate; Z91.040 Latex allergy status; E86.0 Dehydration; B96.20 Unspecified Escherichia coli [E. coli] as the cause of diseases classified elsewhere; E83.42 Hypomagnesemia; F10.239 Alcohol dependence with withdrawal, unspecified; I47.1 Supraventricular tachycardia; Z88.2 Allergy status to sulfonamides; N39.0 Urinary tract infection, site not specified; K52.9 Noninfective gastroenteritis and colitis, unspecified; K80.50 Calculus of bile duct without cholangitis or cholecystitis without obstruction; E87.6 Hypokalemia; K31.84 Gastroparesis; K29.70 Gastritis, unspecified, without bleeding; Z88.5 Allergy status to narcotic agent; G40.89 Other seizures; Z88.0 Allergy status to penicillin; D68.0 Von Willebrand disease